=== PATIENT | male | born 1990 | race Caucasian/White ===

== ENCOUNTER 2017-01-20 16:40 | Emergency (ER) | payer OTHER ==
[2017-01-20 16:45] VITALS: TEMP 98.5
--- NOTE | 2017-01-20 18:34 | ED ---
General Adult HPI - General Chief complaint: Recheck/Abnormal Lab/Rx Stated complaint: abnormal labs Time Seen by Provider: 01/20/17 18:00 Source: patient, family, RN notes reviewed, old records reviewed Mode of arrival: ambulatory Limitations: no limitations - History of Present Illness Initial comments: 26-year-old male presenting for fatigue and behavioral changes. Patient does have a psychiatric history is currently on multiple psychiatric medications. Mother states that he has developed metabolic issue secondary to his medications. He has a history of elevated ammonia levels. She states that he began having some behavioral disturbances with agitation and irritability over the past week. They did follow-up with his primary doctor who did some lab work and found that his ammonia level was 70. He was initiated on lactulose which he has been using for the past 5 days. Mother states he doesn't seem like he is improving much. She states he seems more irritable and agitated and has crying fits. She states that she has also begun to reduce some of the doses of his medications after discussion with the psychiatrist. The patient denies any suicidality at this time. States he feels "foggy." He denies any fevers or chills. He denies any chest pain or shortness of breath. He denies abdominal pain. He denies any nausea or vomiting. - Related Data Home Medications Medication Instructions Recorded Confirmed QUEtiapine [SEROquel] 200 mg PO HS 06/18/16 01/20/17 Citalopram Hydrobromide [CeleXA] 20 mg PO DAILY 01/20/17 01/20/17 Dextroamphetamine/Amphetamine 10 mg PO TID@0800,1230,1630 01/20/17 01/20/17 [Adderall] LORazepam [Ativan] 1 mg PO TID 01/20/17 01/20/17 QUEtiapine [SEROquel] 25 mg PO QAM 01/20/17 01/20/17 Allergies Allergy/AdvReac Type Severity Reaction Status Date / Time phenobarbital AdvReac Severe Rapid Verified 01/20/17 18:55 Heart Rate zolpidem tartrate AdvReac Unknown Altered Verified 01/20/17 18:55 [From Ambien] Mental Status estropipate [From Ogen 2.5] AdvReac Twitching Verified 01/20/17 18:55 of Legs haloperidol [From Haldol] AdvReac Agitation Verified 01/20/17 18:55 methylprednisolone AdvReac Altered Verified 01/20/17 18:55 [From Solu-Medrol] Mental Status Review of Systems ROS Statement: Those systems with pertinent positive or pertinent negative responses have been documented in the HPI. ROS Other: All systems not noted in ROS Statement are negative. Past Medical History Past Medical History: GERD/Reflux, GI Bleed, Renal Disease Additional Past Medical History / Comment(s): Gastritis, kidney stones, chrons, possible metabolic disorder History of Any Multi-Drug Resistant Organisms: None Reported Past Surgical History: Tonsillectomy Additional Past Surgical History / Comment(s): wisdom teeth removed. Past Anesthesia/Blood Transfusion Reactions: No Reported Reaction Additional Past Anesthesia/Blood Transfusion Reaction / Comment(s): NEVER HAD BLOOD TRANSFUSION Past Psychological History: ADD/ADHD, Anxiety, Bipolar, Depression, PTSD Additional Psychological History / Comment(s): PT TAKES PAXIL AND XANAX AND SEES A THERAPIST WHICH pt states doesnt seem to be helping. HE USES MEDICAL MARIJUANA TINCTURE WHICH HE DROPS ON HIS TONGUE, mixes in brownies or smokes it which helps with his crohns. Smoking Status: Current every day smoker Past Alcohol Use History: Occasional Additional Past Alcohol Use History / Comment(s): pt states he is an alcoholic, he has drunk up to a gallon of vodka in a day. Patient is currently stating that he binge drinks and only occasionally. He is a smoker of a half a pack of cigarettes per day. He is currently living at home with his parents. Past Drug Use History: Marijuana Additional Drug Use History / Comment(s): pt has a medical marijuana card "for my PTSD and crohns" - Past Family History Sister(s) Additional Family Medical History / Comment(s): He has one sister that is healthy. He also has a 4-year-old daughter that is healthy. Father Family Medical History: GERD/Reflux Additional Family Medical History / Comment(s): Father is alive at age 60 recovered alcoholic with no major medical problems. Mother Additional Family Medical History / Comment(s): Mother is alive at age 58 recovered alcoholic and chronic back problems. General Exam - General Exam Comments Initial Comments: General: Awake and Alert. No acute distress. Does not appear acutely ill. Eyes: YOKASTA, EOM intact. No nystagmus. No scleral icterus. HENT: Atraumatic, normocephalic. Mucous membranes moist. Trachea midline. Neck: The neck is supple, there is no tenderness or JVD. Cardiovascular: Regular rate and rhythm. No murmur, rub, or gallop is appreciated. Distal pulses intact. Respiratory: Lungs are clear to auscultation bilaterally. No wheezes, rales, rhonchi. No respiratory distress. Gastrointestinal: Soft, Nontender. No rebound or guarding. Non-distended. No masses or organomegaly noted. No CVA tenderness. Musculoskeletal: No tenderness. Normal ROM. No gross deformity. No strength deficits. Neurological: A&Ox3. CN II-XII grossly intact, There are no obvious motor or sensory deficits. Coordination appears grossly intact. Speech is normal. Skin: Skin is warm and dry and no rashes or lesions are noted. Psychiatric: Cooperative. Flat affect. Limitations: no limitations Course Vital Signs 01/20/17 01/20/17 16:42 19:31 Temperature 98.5 F Pulse Rate 97 69 Respiratory 20 16 Rate Blood Pressure 131/70 134/65 O2 Sat by Pulse 98 97 Oximetry EKG Findings - EKG Comments: EKG Findings:: EKG 18:30. Normal sinus rhythm. Rate 77. Normal axis. No STEMI. Normal EKG. Medical Decision Making - Medical Decision Making 26-year-old male with history of depression and PTSD presenting for behavioral changes. On exam patient appears in no acute distress with stable vitals. Per mother he recently had an elevated ammonia level in the outpatient setting and has been started on lactulose. She states this is been a recurrent issue in the past. Shortly after IV was placed patient demanded his IV be removed. It was removed. He became more agitated. His normal dose of Ativan was given by mouth and his behavior improved. He was able to tolerate oral fluids. Lab work with mild leukocytosis, likely reactive. BMP grossly unremarkable. LFTs stable. Lipase negative. Ammonia elevated at 39. UA without evidence of infection. Patient reevaluated, remained stable. Updated patient and mother on results. Discussed elevated ammonia though improved since recent value of 70. Discussed continuing lactulose and follow-up with PCP. Mother states he has follow-up with Dr. Stevenson, psychiatry on Wednesday and PCP Dr. Anderson early next week. Patient appears stable for discharge at this time. Patient and mother deny any reason for psychiatric evaluation at this time. Discussed concerning signs symptoms for immediate return to the ED. Mother feels comfortable taking him home at this time. Patient and mother are agreeable with plan and discharge home. - Lab Data Result diagrams: 01/20/17 18:26 01/20/17 18:26 Lab Results 01/20/17 01/20/17 01/20/17 Range/Units 18:26 18:26 18:26 WBC 11.1 H (3.8-10.6) k/uL RBC 5.21 (4.30-5.90) m/uL Hgb 16.6 (13.0-17.5) gm/dL Hct 48.2 (39.0-53.0) % MCV 92.5 (80.0-100.0) fL MCH 31.8 (25.0-35.0) pg MCHC 34.4 (31.0-37.0) g/dL RDW 13.3 (11.5-15.5) % Plt Count 223 (150-450) k/uL Neutrophils % 61 % Lymphocytes % 30 % Monocytes % 4 % Eosinophils % 3 % Basophils % 1 % Neutrophils # 6.8 (1.3-7.7) k/uL Lymphocytes # 3.4 (1.0-4.8) k/uL Monocytes # 0.5 (0-1.0) k/uL Eosinophils # 0.3 (0-0.7) k/uL Basophils # 0.1 (0-0.2) k/uL Sodium 142 (137-145) mmol/L Potassium 4.2 (3.5-5.1) mmol/L Chloride 105 (98-107) mmol/L Carbon Dioxide 26 (22-30) mmol/L Anion Gap 11 mmol/L BUN 14 (9-20) mg/dL Creatinine 0.80 (0.66-1.25) mg/dL Est GFR (MDRD) Af Amer >60 (>60 ml/min/1.73 sqM) Est GFR (MDRD) Non-Af >60 (>60 ml/min/1.73 sqM) Glucose 72 L (74-99) mg/dL Calcium 10.0 (8.4-10.2) mg/dL Total Bilirubin 0.4 (0.2-1.3) mg/dL AST 37 (17-59) U/L ALT 60 (21-72) U/L Alkaline Phosphatase 65 (38-126) U/L Ammonia 39 H (<30) umol/L Total Protein 7.4 (6.3-8.2) g/dL Albumin 4.7 (3.5-5.0) g/dL Lipase 40 (23-300) U/L Urine Color Urine Appearance (Clear) Urine pH (5.0-8.0) Ur Specific [place] (1.001-1.035) Urine Protein (Negative) Urine Glucose (UA) (Negative) Urine Ketones (Negative) Urine Blood (Negative) Urine Nitrite (Negative) Urine Bilirubin (Negative) Urine Urobilinogen (<2.0) mg/dL Ur Leukocyte Esterase (Negative) Urine Opiates Screen (NotDetected) Ur Oxycodone Screen (NotDetected) Urine Methadone Screen (NotDetected) Ur Propoxyphene Screen (NotDetected) Ur Barbiturates Screen (NotDetected) U Tricyclic Antidepress (NotDetected) Ur Phencyclidine Scrn (NotDetected) Ur Amphetamines Screen (NotDetected) U Methamphetamines Scrn (NotDetected) U Benzodiazepines Scrn (NotDetected) Urine Cocaine Screen (NotDetected) U Marijuana (THC) Screen (NotDetected) 01/20/17 01/20/17 Range/Units 18:33 18:34 WBC (3.8-10.6) k/uL RBC (4.30-5.90) m/uL Hgb (13.0-17.5) gm/dL Hct (39.0-53.0) % MCV (80.0-100.0) fL MCH (25.0-35.0) pg MCHC (31.0-37.0) g/dL RDW (11.5-15.5) % Plt Count (150-450) k/uL Neutrophils % % Lymphocytes % % Monocytes % % Eosinophils % % Basophils % % Neutrophils # (1.3-7.7) k/uL Lymphocytes # (1.0-4.8) k/uL Monocytes # (0-1.0) k/uL Eosinophils # (0-0.7) k/uL Basophils # (0-0.2) k/uL Sodium (137-145) mmol/L Potassium (3.5-5.1) mmol/L Chloride (98-107) mmol/L Carbon Dioxide (22-30) mmol/L Anion Gap mmol/L BUN (9-20) mg/dL Creatinine (0.66-1.25) mg/dL Est GFR (MDRD) Af Amer (>60 ml/min/1.73 sqM) Est GFR (MDRD) Non-Af (>60 ml/min/1.73 sqM) Glucose (74-99) mg/dL Calcium (8.4-10.2) mg/dL Total Bilirubin (0.2-1.3) mg/dL AST (17-59) U/L ALT (21-72) U/L Alkaline Phosphatase (38-126) U/L Ammonia (<30) umol/L Total Protein (6.3-8.2) g/dL Albumin (3.5-5.0) g/dL Lipase (23-300) U/L Urine Color Yellow Urine Appearance Clear (Clear) Urine pH 7.0 (5.0-8.0) Ur Specific [place] 1.017 (1.001-1.035) Urine Protein Negative (Negative) Urine Glucose (UA) Negative (Negative) Urine Ketones Negative (Negative) Urine Blood Negative (Negative) Urine Nitrite Negative (Negative) Urine Bilirubin Negative (Negative) Urine Urobilinogen <2.0 (<2.0) mg/dL Ur Leukocyte Esterase Negative (Negative) Urine Opiates Screen Not Detected (NotDetected) Ur Oxycodone Screen Not Detected (NotDetected) Urine Methadone Screen Not Detected (NotDetected) Ur Propoxyphene Screen Not Detected (NotDetected) Ur Barbiturates Screen Not Detected (NotDetected) U Tricyclic Antidepress Detected H (NotDetected) Ur Phencyclidine Scrn Not Detected (NotDetected) Ur Amphetamines Screen Detected H (NotDetected) U Methamphetamines Scrn Not Detected (NotDetected) U Benzodiazepines Scrn Detected H (NotDetected) Urine Cocaine Screen Not Detected (NotDetected) U Marijuana (THC) Screen Detected H (NotDetected) - EKG Data -: EKG Interpreted by Me EKG shows normal: sinus rhythm Rate: normal Disposition Clinical Impression: Hyperammonemia, Behavioral change Disposition: HOME SELF-CARE Condition: Stable Additional Instructions: Please continue the lactulose as directed. Make sure he continues to drink plenty of fluid to stay well hydrated and increase his urine output. Please follow up with his psychiatrist and PCP as discussed. Please return to the ER immediately if his condition seems to worsen. Referrals: Daniel Anderson DO [Primary Care Provider] - 1-2 days Time of Disposition: 19:56
[2017-01-20 18:36] LABS: Basophils # (A) 0.1 k/uL (0-0.2); Basophils % (A) 1 %; CH 32.2; Eosinophils # (A) 0.3 k/uL (0-0.7); Eosinophils % (A) 3 %; HCT 48.2 % (39.0-53.0); HDW 2.54; HGB 16.6 gm/dL (13.0-17.5); Luc # (Auto) 0.17; Luc % (Auto) 2; Lymphocytes # (A) 3.4 k/uL (1.0-4.8); Lymphocytes % (A) 30 %; MCH 31.8 pg (25.0-35.0); MCHC 34.4 g/dL (31.0-37.0); MCV 92.5 fL (80.0-100.0); Mean Platelet Volume 6.9; Monocytes # (A) 0.5 k/uL (0-1.0); Monocytes % (A) 4 %; Neutrophils # (A) 6.8 k/uL (1.3-7.7); Neutrophils % (A) 61 %; RBC 5.21 m/uL (4.30-5.90); RDW 13.3 % (11.5-15.5); WBC 11.1 k/uL (3.8-10.6); WBC (Perox) 10.92
[2017-01-20 18:54] LABS: ALT 60 U/L (21-72); AST 37 U/L (17-59); Alkaline Phosphatase 65 U/L (38-126); Anion Gap 11 mmol/L; Blood Urea Nitrogen 14 mg/dL (9-20); Carbon Dioxide 26 mmol/L (22-30); Chloride 105 mmol/L (98-107); Glucose 72 mg/dL (74-99); Non-African American GFR(MDRD) >60 (>60 ml/min/1.73 sqM); Potassium 4.2 mmol/L (3.5-5.1); Sodium 142 mmol/L (137-145); Total Bilirubin 0.4 mg/dL (0.2-1.3); Total Protein 7.4 g/dL (6.3-8.2)
[2017-01-20] MEDS ORDERED: SODIUM CHLORIDE 0.9% 1,000 ML IV ONE (19:05)
[2017-01-20] MEDS ORDERED: LORazepam 1 MG TAB PO STA (19:08)
[2017-01-20 19:16] LABS: Appearance,Urine Clear (Clear); Bilirubin,Urine Negative (Negative); Glucose,Urine (UA) Negative (Negative); Ketones,Urine Negative (Negative); Leukocyte Esterase,Urine Negative (Negative); Nitrite,Urine Negative (Negative); Protein,Urine Negative (Negative); Specific Gravity,Urine 1.017 (1.001-1.035); UA Billing (MACRO vs. MICRO) CHEM; Urobilinogen,Urine <2.0 mg/dL (<2.0)
[2017-01-20 19:32] VITALS: BP 134/65; PULSE 69; RESP 16
== END 2017-01-20 20:01 | disposition home or self-care (01) ==
LOC: EC 16:40
DX: E72.4 Disorders of ornithine metabolism (principal); R46.89 Other symptoms and signs involving appearance and behavior; F90.9 Attention-deficit hyperactivity disorder, unspecified type; F41.9 Anxiety disorder, unspecified; F31.9 Bipolar disorder, unspecified; F17.200 Nicotine dependence, unspecified, uncomplicated; Z88.8 Allergy status to other drugs, medicaments and biological substances; Z79.899 Other long term (current) drug therapy
CPT/HCPCS: 36415; 80053; 80306; 81003; 82140; 83690; 85025; 93005; 99284

== ENCOUNTER 2017-01-22 10:08 | Emergency (ER) | payer OTHER ==
--- NOTE | 2017-01-22 11:34 | ED ---
General Adult HPI - General Chief complaint: Recheck/Abnormal Lab/Rx Stated complaint: abn labs Time Seen by Provider: 01/22/17 11:13 Source: patient, family, RN notes reviewed, old records reviewed Mode of arrival: wheelchair Limitations: no limitations - History of Present Illness Initial comments: Chief complaint and history of present illness this is a 18-year-old male here with his mother. The patient lives with his mother. Patient has had history of alcohol abuse years ago. And is on psychiatric drugs for combination of bipolar disorder and PTSD. The patient labs showed an elevated ammonia last week of 70. He was hydrated and mother continued his lactulose. He was in emergency room 2 days ago and was ammonia level dropped to 39. Mother felt comfortable taking him home continuing hydration but his symptoms have not significantly improved. She discussed this with the family physician suggested he come the emergency room have his labs redrawn and receive rehydration. The symptoms are being fidgety. - Related Data Home Medications Medication Instructions Recorded Confirmed QUEtiapine [SEROquel] 200 mg PO HS 06/18/16 01/22/17 Citalopram Hydrobromide [CeleXA] 20 mg PO DAILY 01/20/17 01/22/17 Dextroamphetamine/Amphetamine 10 mg PO TID@0800,1230,1630 01/20/17 01/22/17 [Adderall] LORazepam [Ativan] 1 mg PO TID 01/20/17 01/22/17 QUEtiapine [SEROquel] 25 mg PO QAM 01/20/17 01/22/17 Allergies Allergy/AdvReac Type Severity Reaction Status Date / Time phenobarbital AdvReac Severe Rapid Verified 01/22/17 11:08 Heart Rate zolpidem tartrate AdvReac Unknown Altered Verified 01/22/17 11:08 [From Ambien] Mental Status estropipate [From Ogen 2.5] AdvReac Twitching Verified 01/22/17 11:08 of Legs haloperidol [From Haldol] AdvReac Agitation Verified 01/22/17 11:08 methylprednisolone AdvReac Altered Verified 01/22/17 11:08 [From Solu-Medrol] Mental Status Review of Systems ROS Statement: Those systems with pertinent positive or pertinent negative responses have been documented in the HPI. Review of systems. The patient is fidgety. He does state he has general aches and pains but no specific problems. He's been on lactulose and does have diarrhea. Denies headache or sore throat. The patient's systems are reviewed. Past medical problems GERD, GI bleed and renal disease. Other medical problems kidney stones and Crohn's disorder and a metabolic disorder with elevated ammonia levels. Surgeries tonsillectomy. The patient psychological history, ADHD, anxiety, bipolar depression and PTSD. Currently seeing a psychiatrist. Uses medical marijuana teacher when she drops on his tongue. He states this helped with his Crohn's disorder. Smokes half pack per day. Per past history both mother and father recovering alcoholics. ROS Other: All systems not noted in ROS Statement are negative. Past Medical History Past Medical History: GERD/Reflux, GI Bleed, Renal Disease Additional Past Medical History / Comment(s): Gastritis, kidney stones, chrons, possible metabolic disorder History of Any Multi-Drug Resistant Organisms: None Reported Past Surgical History: Tonsillectomy Additional Past Surgical History / Comment(s): wisdom teeth removed. Past Anesthesia/Blood Transfusion Reactions: No Reported Reaction Additional Past Anesthesia/Blood Transfusion Reaction / Comment(s): NEVER HAD BLOOD TRANSFUSION Past Psychological History: ADD/ADHD, Anxiety, Bipolar, Depression, PTSD Additional Psychological History / Comment(s): PT TAKES PAXIL AND XANAX AND SEES A THERAPIST WHICH pt states doesnt seem to be helping. HE USES MEDICAL MARIJUANA TINCTURE WHICH HE DROPS ON HIS TONGUE, mixes in brownies or smokes it which helps with his crohns. Smoking Status: Current every day smoker Past Alcohol Use History: Occasional Additional Past Alcohol Use History / Comment(s): pt states he is an alcoholic, he has drunk up to a gallon of vodka in a day. Patient is currently stating that he binge drinks and only occasionally. He is a smoker of a half a pack of cigarettes per day. He is currently living at home with his parents. Past Drug Use History: Marijuana Additional Drug Use History / Comment(s): pt has a medical marijuana card "for my PTSD and crohns" - Past Family History Sister(s) Additional Family Medical History / Comment(s): He has one sister that is healthy. He also has a 4-year-old daughter that is healthy. Father Family Medical History: GERD/Reflux Additional Family Medical History / Comment(s): Father is alive at age 60 recovered alcoholic with no major medical problems. Mother Additional Family Medical History / Comment(s): Mother is alive at age 58 recovered alcoholic and chronic back problems. General Exam - General Exam Comments Initial Comments: General: The patient is awake is fidgety per mother. She notices changes that her indicate and being affected by ammonia levels being elevated. Temp 98.0 pulse 79 respiratory rate 18 pulse ox 96% room air blood pressure 127/72 Eye: Pupils are equal, round and reactive to light, extra-ocular movements are intact ; there is normal conjunctiva bilaterally. No signs of icterus. Ears, nose, mouth and throat: There are moist mucous membranes and no oral lesions. Neck: The neck is supple, there is no tenderness . Cardiovascular: There is a regular rate and rhythm. No murmur, rub or gallop is appreciated. Respiratory: Lungs are clear to auscultation, respirations are non-labored, breath sounds are equal. No wheezes, stridor, rales, or rhonchi. Gastrointestinal: Soft, non-distended, non-tender abdomen without masses or organomegaly noted. There is no rebound or guarding present. No CVA tenderness. Bowel sounds are unremarkable. No liver enlargement or tenderness with deep palpation. Back: There is no tenderness to palpation in the midline. There is no obvious deformity. No rashes noted. Musculoskeletal: Normal ROM, no tenderness, There is no pedal edema. There is no calf tenderness or swelling. Sensation intact. Pulses equal bilaterally 2+. Neurological: Mother reports that he is acting as though his ammonia level is elevated, fidgety with repetitive movements. Mild confusion. Skin: Skin is warm and dry and no rashes or lesions are noted. Psychiatric: History of ADD, ADHD, anxiety, depression, bipolar disorder and PTSD Limitations: no limitations Course Vital Signs 01/22/17 10:40 Temperature 98.0 F Pulse Rate 79 Respiratory 18 Rate Blood Pressure 127/72 O2 Sat by Pulse 96 Oximetry Medical Decision Making - Medical Decision Making Vital decision making; patient's white count is 9 hemoglobin 17 hematocrit of 48 , BUN 15 creatinine 0.69 the GFR greater than 60 and ammonia level was only 14. After hydration the patient did significantly improve. Plant this size for the mother: Discussed with the psychiatrist the current medications and may be causing him to be more somnolent. Otherwise advised to continue home therapy as she's been doing recently. And otherwise return emergency room if there are any changes. - Lab Data Result diagrams: 01/22/17 12:25 01/22/17 12:25 Lab Results 01/22/17 01/22/17 01/22/17 Range/Units 12:25 12:25 12:25 WBC 9.5 (3.8-10.6) k/uL RBC 5.42 (4.30-5.90) m/uL Hgb 17.2 (13.0-17.5) gm/dL Hct 48.9 (39.0-53.0) % MCV 90.1 (80.0-100.0) fL MCH 31.8 (25.0-35.0) pg MCHC 35.2 (31.0-37.0) g/dL RDW 13.1 (11.5-15.5) % Plt Count 223 (150-450) k/uL Neutrophils % 60 % Lymphocytes % 31 % Monocytes % 5 % Eosinophils % 2 % Basophils % 1 % Neutrophils # 5.7 (1.3-7.7) k/uL Lymphocytes # 2.9 (1.0-4.8) k/uL Monocytes # 0.5 (0-1.0) k/uL Eosinophils # 0.2 (0-0.7) k/uL Basophils # 0.1 (0-0.2) k/uL Sodium 141 (137-145) mmol/L Potassium 4.5 (3.5-5.1) mmol/L Chloride 105 (98-107) mmol/L Carbon Dioxide 25 (22-30) mmol/L Anion Gap 11 mmol/L BUN 15 (9-20) mg/dL Creatinine 0.69 (0.66-1.25) mg/dL Est GFR (MDRD) Af Amer >60 (>60 ml/min/1.73 sqM) Est GFR (MDRD) Non-Af >60 (>60 ml/min/1.73 sqM) Glucose 87 (74-99) mg/dL Calcium 9.8 (8.4-10.2) mg/dL Magnesium 1.9 (1.6-2.3) mg/dL Total Bilirubin 0.6 (0.2-1.3) mg/dL AST 37 (17-59) U/L ALT 63 (21-72) U/L Alkaline Phosphatase 68 (38-126) U/L Ammonia 14 (<30) umol/L Total Protein 7.7 (6.3-8.2) g/dL Albumin 4.9 (3.5-5.0) g/dL Disposition Clinical Impression: Idiosyncratic reaction to medication after proper dose Disposition: HOME SELF-CARE Condition: Fair Additional Instructions: Follow-up with your family physician and your psychiatrist. Take medications as directed by her doctors at home return emergency room as needed Referrals: Daniel Anderson DO [Primary Care Provider] - 1-2 days Time of Disposition: 14:29
[2017-01-22] MEDS ORDERED: SODIUM CHLORIDE 0.9% 1,000 ML IV ONE (11:35)
[2017-01-22] MEDS ORDERED: SODIUM CHLORIDE 0.9% 1,000 ML IV SCH (11:45)
[2017-01-22 12:39] LABS: Basophils # (A) 0.1 k/uL (0-0.2); Basophils % (A) 1 %; CH 32.2; CHCM 35.8; Eosinophils # (A) 0.2 k/uL (0-0.7); Eosinophils % (A) 2 %; HCT 48.9 % (39.0-53.0); HGB 17.2 gm/dL (13.0-17.5); Luc # (Auto) 0.19; Luc % (Auto) 2; Lymphocytes # (A) 2.9 k/uL (1.0-4.8); Lymphocytes % (A) 31 %; MCH 31.8 pg (25.0-35.0); MCHC 35.2 g/dL (31.0-37.0); MCV 90.1 fL (80.0-100.0); Mean Platelet Volume 6.8; Monocytes # (A) 0.5 k/uL (0-1.0); Monocytes % (A) 5 %; Neutrophils # (A) 5.7 k/uL (1.3-7.7); Neutrophils % (A) 60 %; RBC 5.42 m/uL (4.30-5.90); RDW 13.1 % (11.5-15.5); WBC 9.5 k/uL (3.8-10.6); WBC (Perox) 9.33
[2017-01-22 12:55] LABS: ALT 63 U/L (21-72); AST 37 U/L (17-59); Alkaline Phosphatase 68 U/L (38-126); Anion Gap 11 mmol/L; Blood Urea Nitrogen 15 mg/dL (9-20); Calcium 9.8 mg/dL (8.4-10.2); Carbon Dioxide 25 mmol/L (22-30); Chloride 105 mmol/L (98-107); Glucose 87 mg/dL (74-99); Magnesium 1.9 mg/dL (1.6-2.3); Non-African American GFR(MDRD) >60 (>60 ml/min/1.73 sqM); Potassium 4.5 mmol/L (3.5-5.1); Sodium 141 mmol/L (137-145); Total Bilirubin 0.6 mg/dL (0.2-1.3); Total Protein 7.7 g/dL (6.3-8.2)
[2017-01-22 13:42] LABS: Hepatitis C Virus IgG Index 0.01
[2017-01-22 14:28] LABS: Hepatitis C Virus IgG Ab Negative (Negative)
[2017-01-22 15:16] VITALS: BP 125/66; PULSE 65; RESP 16; TEMP 98.3
== END 2017-01-22 15:15 | disposition home or self-care (01) ==
LOC: EC 10:08
DX: T47.3X5A Adverse effect of saline and osmotic laxatives, initial encounter (principal); F31.9 Bipolar disorder, unspecified; F43.10 Post-traumatic stress disorder, unspecified; F90.9 Attention-deficit hyperactivity disorder, unspecified type; F41.9 Anxiety disorder, unspecified; F17.200 Nicotine dependence, unspecified, uncomplicated; Z88.8 Allergy status to other drugs, medicaments and biological substances; Z79.899 Other long term (current) drug therapy
CPT/HCPCS: 36415; 80053; 82140; 83735; 85025; 86803; 96360; 99284

== ENCOUNTER 2017-02-24 17:43 | Inpatient (IN) | payer MEDICAID, OTHER ==
[2017-02-24] MEDS ORDERED: SODIUM CHLORIDE 0.9% 500 ML IV STA (17:54)
[2017-02-24] MEDS ORDERED: SODIUM CHLORIDE 0.9% 1,000 ML IV STA (17:54)
--- NOTE | 2017-02-24 17:57 | ED ---
General Adult HPI - General Source: family, RN notes reviewed, old records reviewed Mode of arrival: ambulatory Limitations: no limitations <Ruslan Ordonez - Last Filed: 02/24/17 19:53> <Brando Ahuja - Last Filed: 02/24/17 23:59> - General Chief complaint: Psychiatric Symptoms Stated complaint: mental health Time Seen by Provider: 02/24/17 17:53 - History of Present Illness Initial comments: This is a 18-year-old no to the ER for evaluation of possible probable psychosis , patient has history of psychosis is a medication reaction to elevated ammonia levels. Mother states patient is atraumatic since last night. He has history of similar issues. (Ruslan Ordonez) - Related Data Home Medications Medication Instructions Recorded Confirmed QUEtiapine [SEROquel] 150 mg PO HS 06/18/16 02/24/17 Citalopram Hydrobromide [CeleXA] 20 mg PO DAILY 01/20/17 02/24/17 Dextroamphetamine/Amphetamine 10 mg PO BID 01/20/17 02/24/17 [Adderall] LORazepam [Ativan] 1 mg PO HS 01/20/17 02/24/17 QUEtiapine [SEROquel] 25 mg PO QAM 01/20/17 02/24/17 Fenofibrate Nanocrystallized 145 mg PO DAILY 02/24/17 02/24/17 [Tricor] LORazepam [Ativan] 0.5 mg PO BID@0800,1500 02/24/17 02/24/17 Allergies Allergy/AdvReac Type Severity Reaction Status Date / Time phenobarbital AdvReac Severe Rapid Verified 02/24/17 18:34 Heart Rate zolpidem tartrate AdvReac Unknown Altered Verified 02/24/17 18:34 [From Ambien] Mental Status estropipate [From Ogen 2.5] AdvReac Twitching Verified 02/24/17 18:34 of Legs haloperidol [From Haldol] AdvReac Agitation Verified 02/24/17 18:34 methylprednisolone AdvReac Altered Verified 02/24/17 18:34 [From Solu-Medrol] Mental Status Review of Systems ROS Other: All systems not noted in ROS Statement are negative. <Ruslan Ordonez - Last Filed: 02/24/17 19:53> ROS Other: All systems not noted in ROS Statement are negative. <Brando Ahuja - Last Filed: 02/24/17 23:59> ROS Statement: Those systems with pertinent positive or pertinent negative responses have been documented in the HPI. Past Medical History Past Medical History: GERD/Reflux, GI Bleed, Renal Disease Additional Past Medical History / Comment(s): Gastritis, kidney stones, chrons, possible metabolic disorder History of Any Multi-Drug Resistant Organisms: None Reported Past Surgical History: Tonsillectomy Additional Past Surgical History / Comment(s): wisdom teeth removed. Past Anesthesia/Blood Transfusion Reactions: No Reported Reaction Additional Past Anesthesia/Blood Transfusion Reaction / Comment(s): NEVER HAD BLOOD TRANSFUSION Past Psychological History: ADD/ADHD, Anxiety, Bipolar, Depression, PTSD Smoking Status: Current every day smoker Past Alcohol Use History: Occasional Past Drug Use History: Marijuana - Past Family History Sister(s) Additional Family Medical History / Comment(s): He has one sister that is healthy. He also has a 4-year-old daughter that is healthy. Father Family Medical History: GERD/Reflux Additional Family Medical History / Comment(s): Father is alive at age 60 recovered alcoholic with no major medical problems. Mother Additional Family Medical History / Comment(s): Mother is alive at age 58 recovered alcoholic and chronic back problems. <Ruslan Ordonez - Last Filed: 02/24/17 19:53> General Exam Limitations: no limitations General appearance: alert, in no apparent distress Head exam: Present: atraumatic, normocephalic, normal inspection Eye exam: Present: normal appearance, PERRL, EOMI. Absent: scleral icterus, conjunctival injection, periorbital swelling ENT exam: Present: normal exam, mucous membranes moist Neck exam: Present: normal inspection. Absent: tenderness, meningismus, lymphadenopathy Respiratory exam: Present: normal lung sounds bilaterally. Absent: respiratory distress, wheezes, rales, rhonchi, stridor Cardiovascular Exam: Present: regular rate, normal rhythm, normal heart sounds. Absent: systolic murmur, diastolic murmur, rubs, gallop, clicks GI/Abdominal exam: Present: soft, normal bowel sounds. Absent: distended, tenderness, guarding, rebound, rigid Extremities exam: Present: normal inspection, full ROM, normal capillary refill. Absent: tenderness, pedal edema, joint swelling, calf tenderness Back exam: Present: normal inspection Neurological exam: Present: alert, oriented X3, CN II-XII intact Psychiatric exam: Present: normal affect, normal mood Skin exam: Present: warm, dry, intact, normal color. Absent: rash <Ruslan Ordonez - Last Filed: 02/24/17 19:53> EKG Findings - EKG Comments: EKG Findings:: EKG shows normal sinus rhythm rate of 80, ME 144, QRS 84, QTC 299 <Ruslan Ordonez - Last Filed: 02/24/17 19:53> Medical Decision Making - Lab Data Result diagrams: 02/24/17 18:45 02/24/17 18:45 <Ruslan Ordonez - Last Filed: 02/24/17 19:53> - Lab Data Result diagrams: 02/24/17 18:45 02/24/17 18:45 <Brando Ahuja - Last Filed: 02/24/17 23:59> - Medical Decision Making The patient was evaluated by the psychiatric service and will be admitted for inpatient treatment. I did fill out a clinical certification. (Brando Ahuja) - Lab Data Lab Results 02/24/17 02/24/17 02/24/17 Range/Units 18:45 18:45 18:45 WBC 10.5 (3.8-10.6) k/uL RBC 5.19 (4.30-5.90) m/uL Hgb 16.4 (13.0-17.5) gm/dL Hct 49.2 (39.0-53.0) % MCV 94.9 (80.0-100.0) fL MCH 31.6 (25.0-35.0) pg MCHC 33.3 (31.0-37.0) g/dL RDW 13.4 (11.5-15.5) % Plt Count 238 (150-450) k/uL Neutrophils % 62 % Lymphocytes % 29 % Monocytes % 5 % Eosinophils % 2 % Basophils % 0 % Neutrophils # 6.5 (1.3-7.7) k/uL Lymphocytes # 3.0 (1.0-4.8) k/uL Monocytes # 0.5 (0-1.0) k/uL Eosinophils # 0.2 (0-0.7) k/uL Basophils # 0.0 (0-0.2) k/uL PT (9.0-12.0) sec INR (<1.1) APTT (22.0-30.0) sec Sodium (137-145) mmol/L Potassium (3.5-5.1) mmol/L Chloride (98-107) mmol/L Carbon Dioxide (22-30) mmol/L Anion Gap mmol/L BUN (9-20) mg/dL Creatinine (0.66-1.25) mg/dL Est GFR (MDRD) Af Amer (>60 ml/min/1.73 sqM) Est GFR (MDRD) Non-Af (>60 ml/min/1.73 sqM) Glucose (74-99) mg/dL Plasma Lactic Acid Socrates 1.4 (0.7-2.0) mmol/L Calcium (8.4-10.2) mg/dL Phosphorus (2.5-4.5) mg/dL Magnesium (1.6-2.3) mg/dL Total Bilirubin (0.2-1.3) mg/dL AST (17-59) U/L ALT (21-72) U/L Alkaline Phosphatase (38-126) U/L Ammonia 20 (<30) umol/L Total Creatine Kinase 158 (55-170) U/L CK-MB (CK-2) 1.4 (0.0-2.4) ng/mL CK-MB (CK-2) Rel Index 0.9 Troponin I <0.012 (0.000-0.034) ng/mL Total Protein (6.3-8.2) g/dL Albumin (3.5-5.0) g/dL Urine Color Urine Appearance (Clear) Urine pH (5.0-8.0) Ur Specific [place] (1.001-1.035) Urine Protein (Negative) Urine Glucose (UA) (Negative) Urine Ketones (Negative) Urine Blood (Negative) Urine Nitrite (Negative) Urine Bilirubin (Negative) Urine Urobilinogen (<2.0) mg/dL Ur Leukocyte Esterase (Negative) 02/24/17 02/24/17 02/24/17 Range/Units 18:45 18:45 18:45 WBC (3.8-10.6) k/uL RBC (4.30-5.90) m/uL Hgb (13.0-17.5) gm/dL Hct (39.0-53.0) % MCV (80.0-100.0) fL MCH (25.0-35.0) pg MCHC (31.0-37.0) g/dL RDW (11.5-15.5) % Plt Count (150-450) k/uL Neutrophils % % Lymphocytes % % Monocytes % % Eosinophils % % Basophils % % Neutrophils # (1.3-7.7) k/uL Lymphocytes # (1.0-4.8) k/uL Monocytes # (0-1.0) k/uL Eosinophils # (0-0.7) k/uL Basophils # (0-0.2) k/uL PT 9.8 (9.0-12.0) sec INR 1.0 (<1.1) APTT 24.6 (22.0-30.0) sec Sodium 144 (137-145) mmol/L Potassium 4.0 (3.5-5.1) mmol/L Chloride 105 (98-107) mmol/L Carbon Dioxide 27 (22-30) mmol/L Anion Gap 12 mmol/L BUN 14 (9-20) mg/dL Creatinine 0.90 (0.66-1.25) mg/dL Est GFR (MDRD) Af Amer >60 (>60 ml/min/1.73 sqM) Est GFR (MDRD) Non-Af >60 (>60 ml/min/1.73 sqM) Glucose 69 L (74-99) mg/dL Plasma Lactic Acid Socrates (0.7-2.0) mmol/L Calcium 9.9 (8.4-10.2) mg/dL Phosphorus 3.1 (2.5-4.5) mg/dL Magnesium 1.8 (1.6-2.3) mg/dL Total Bilirubin 0.3 (0.2-1.3) mg/dL AST 25 (17-59) U/L ALT 45 (21-72) U/L Alkaline Phosphatase 67 (38-126) U/L Ammonia (<30) umol/L Total Creatine Kinase (55-170) U/L CK-MB (CK-2) (0.0-2.4) ng/mL CK-MB (CK-2) Rel Index Troponin I (0.000-0.034) ng/mL Total Protein 7.1 (6.3-8.2) g/dL Albumin 4.7 (3.5-5.0) g/dL Urine Color Yellow Urine Appearance Clear (Clear) Urine pH 6.0 (5.0-8.0) Ur Specific [place] 1.023 (1.001-1.035) Urine Protein Negative (Negative) Urine Glucose (UA) Negative (Negative) Urine Ketones Negative (Negative) Urine Blood Negative (Negative) Urine Nitrite Negative (Negative) Urine Bilirubin Negative (Negative) Urine Urobilinogen <2.0 (<2.0) mg/dL Ur Leukocyte Esterase Negative (Negative) Disposition <Ruslan Ordonez - Last Filed: 02/24/17 19:53> <Brando Ahuja - Last Filed: 02/24/17 23:59> Clinical Impression: Schizophrenia, acute, Acute psychosis Disposition: TRANSFER TO PSYCH HOSP/UNIT Condition: Stable
[2017-02-24 18:58] LABS: Basophils % (A) 0 %; CH 32.8; CHCM 34.7; Eosinophils # (A) 0.2 k/uL (0-0.7); Eosinophils % (A) 2 %; HCT 49.2 % (39.0-53.0); HDW 2.52; HGB 16.4 gm/dL (13.0-17.5); Luc # (Auto) 0.18; Luc % (Auto) 2; Lymphocytes % (A) 29 %; MCH 31.6 pg (25.0-35.0); MCHC 33.3 g/dL (31.0-37.0); MCV 94.9 fL (80.0-100.0); Mean Platelet Volume 6.7; Monocytes # (A) 0.5 k/uL (0-1.0); Monocytes % (A) 5 %; Neutrophils # (A) 6.5 k/uL (1.3-7.7); Neutrophils % (A) 62 %; RBC 5.19 m/uL (4.30-5.90); RDW 13.4 % (11.5-15.5); WBC 10.5 k/uL (3.8-10.6); WBC (Perox) 9.85
[2017-02-24 19:07] LABS: Appearance,Urine Clear (Clear); Bilirubin,Urine Negative (Negative); Glucose,Urine (UA) Negative (Negative); Ketones,Urine Negative (Negative); Leukocyte Esterase,Urine Negative (Negative); Nitrite,Urine Negative (Negative); Protein,Urine Negative (Negative); Specific Gravity,Urine 1.023 (1.001-1.035); UA Billing (MACRO vs. MICRO) CHEM; Urobilinogen,Urine <2.0 mg/dL (<2.0)
[2017-02-24 19:09] LABS: ALT 45 U/L (21-72); AST 25 U/L (17-59); Alkaline Phosphatase 67 U/L (38-126); Anion Gap 12 mmol/L; Blood Urea Nitrogen 14 mg/dL (9-20); Calcium 9.9 mg/dL (8.4-10.2); Carbon Dioxide 27 mmol/L (22-30); Chloride 105 mmol/L (98-107); Glucose 69 mg/dL (74-99); Magnesium 1.8 mg/dL (1.6-2.3); Non-African American GFR(MDRD) >60 (>60 ml/min/1.73 sqM); Phosphorous 3.1 mg/dL (2.5-4.5); Sodium 144 mmol/L (137-145); Total Bilirubin 0.3 mg/dL (0.2-1.3); Total Protein 7.1 g/dL (6.3-8.2)
[2017-02-24 19:12] LABS: Partial Thromboplastin Time 24.6 sec (22.0-30.0); Prothrombin Time 9.8 sec (9.0-12.0)
[2017-02-24 19:18] LABS: Creatine Kinase 158 U/L (55-170)
[2017-02-24 19:31] LABS: Creatine Kinase MB 1.4 ng/mL (0.0-2.4); Troponin I <0.012 ng/mL (0.000-0.034)
[2017-02-25] MEDS ORDERED: MAGNESIUM HYDROXIDE 2,400 MG/10 ML CUP PO PRN (00:01)
[2017-02-25] MEDS ORDERED: MAG HYDROX/AL HYDROX/SIMETH 30 ML CUP PO PRN (00:01)
[2017-02-25] MEDS ORDERED: LORazepam 2 MG/ML SYRINGE IM PRN (00:04)
[2017-02-25] MEDS ORDERED: OLANZapine ODT 5 MG TAB PO PRN (00:05)
[2017-02-25] MEDS: LORazepam 1 MG TAB PO PRN (04:35)
[2017-02-25] MEDS: FENOFIBRATE 160 MG TAB PO SCH ×2 (08:22→10:14)
[2017-02-25] MEDS: NICOTINE 14MG/24HR PATCH TRANSDERM SCH ×2 (08:22→10:13)
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
[2017-02-25 09:59] LABS: Cholesterol 218 mg/dL (<200); HDL Cholesterol 42 mg/dL (40-60); Triglycerides 226 mg/dL (<150)
[2017-02-25] MEDS: QUEtiapine 100 MG TAB PO SCH ×2 (10:13→20:17)
[2017-02-25] MEDS ORDERED: QUEtiapine 100 MG TAB PO SCH (21:00)
--- NOTE | 2017-02-25 22:40 | CONS ---
DATE OF CONSULTATION: REASON FOR CONSULTATION: Hyperlipidemia. The patient is a 18-year-old admitted for acute psychosis admitted secondary to acute psychosis. Patient denied any fever, chills. Patient denied any nausea, vomiting, abdominal pain. Patient does have elevated LDL. Patient takes Fenofibrate at home. Patient is an extremely poor historian. Not sure if the patient takes his medications or not including Fenofibrate. Patient believes his mom is giving him that medication, but he is not sure. Regarding hyperlipidemia, recommended to continue Fenofibrate, I am not adding any statins because both of these medications put him on high risk for myalgia and myelolysis, myalgias and myopathy, although ( ) can be reached as an outpatient, probably can start statin, Fenofibrate. Not sure why patient was not started on statin to start with. I will leave further ( ) because of these reasons, I will leave further management of hyperlipidemia to primary care physician. REVIEW OF SYSTEMS: CONSTITUTIONAL: No fever, no malaise, no fatigue. HEENT: No recent visual problems or hearing problems. Denied any sore throat. CARDIOVASCULAR: No chest pain, orthopnea, PND, no palpitations, no syncope. PULMONARY: No shortness of breath, no cough, no hemoptysis. GASTROINTESTINAL: No diarrhea, no nausea, no vomiting, no abdominal pain. Normoactive bowel sounds. NEUROLOGICAL: No headaches, no weakness, no numbness. HEMATOLOGICAL: Denies any bleeding or petechiae. GENITOURINARY: Denies any burning micturition, frequency, or urgency. MUSCULOSKELETAL/RHEUMATOLOGICAL: Denies any joint pain, swelling, or any muscle pain. ENDOCRINE: Denies any polyuria or polydipsia. PSYCHIATRIC: Defer to primary service. The rest of the 14 point review of systems is negative. PAST MEDICAL HISTORY: Significant for hyperlipidemia, hypertriglyceridemia, gastroesophageal reflux disease, bipolar disorder. FAMILY HISTORY: Gastroesophageal reflux disease. SOCIAL HISTORY: The patient does smoke a pack per day. Does drink alcohol every day, although the patient is not having any withdrawals. He needs to be watched for that. Patient does use marijuana on a regular basis. PHYSICAL EXAMINATION: Temperature 98.2, pulse of 88, respiratory rate of 16, blood pressure is 142/58, saturating at 97% on room air. GENERAL: The patient is alert and oriented x3, not in any acute distress. Well developed, well nourished. HEENT: Pupils are round and equally reacting to light. EOMI. No scleral icterus. No conjunctival pallor. Normocephalic, atraumatic. No pharyngeal erythema. No thyromegaly. CARDIOVASCULAR: S1 and S2 present. No murmurs, rubs, or gallops. PULMONARY: Chest is clear to auscultation, no wheezing or crackles. ABDOMEN: Soft, nontender, nondistended, normoactive bowel sounds. No palpable organomegaly. MUSCULOSKELETAL: No joint swelling or deformity. EXTREMITIES: No cyanosis, clubbing, or pedal edema. NEUROLOGICAL: Gross neurological examination did not reveal any focal deficits. SKIN: No rashes. PSYCHIATRIC: Defer to primary service. LABORATORY DATA: LDL is elevated as mentioned above to 130. Urine drug screen is positive for amphetamines, benzodiazepines, marijuana, tricyclic antidepressants, which I believe he is on those medications at home. ASSESSMENT AND PLAN: 1. Hyperlipidemia. Management as mentioned above. 2. Alcohol abuse. Patient needs to be watched for alcohol withdrawals. 3. Nicotine abuse. Counseling was provided. 4. Multiple drug abuse along with marijuana use. Management as per primary service. 5. Bipolar and psychosis, management as per primary service. Thank you for letting us participate in the care of this patient. We will sign off at this point of time. Please call us back if needed.
[2017-02-26] MEDS: QUEtiapine 100 MG TAB PO SCH (09:27)
[2017-02-26] MEDS: NICOTINE 14MG/24HR PATCH TRANSDERM SCH (09:27)
[2017-02-26] MEDS: FENOFIBRATE 160 MG TAB PO SCH (09:27)
--- NOTE | 2017-02-26 09:58 | P.PN ---
Progress Note - Text Interval history: The patient is found in his room he follows me to an interview room. He reports that he is "in shock". He provides no other specifics in describing this feeling. The patient becomes acutely tearful he does not make eye contact. He often holds his head in his hands. He reports that he has been isolating in his room however he states he did eat breakfast this morning. It is documented that he slept through the night approximate 6 hours. He has been compliant with the Seroquel he is reporting no side effects at this time. Again a slightly lab work was all within normal limits except for evidence of hyperlipidemia. Ammonia level was normal at 20. Mental status exam: The patient is alert he appears distraught. He is tearful throughout the session. He states "my father is ". He states "I feel it". He reports he has not been able to speak with his mother he tells "I'm in shock". He continues to endorse a feeling of not being safe. Thoughts are not well organized. He frequently moves while seated in his chair but he demonstrates no verbal or physical aggressiveness. Eye contact is poor. Insight and judgment are impaired. He is reporting no suicidal or homicidal ideation. He is not oriented at this time other than knowing his name and that he is in the hospital. 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 Plan: The patient will continue on the Seroquel 100 mg twice daily we will likely need to titrate this further. We will consider adding another mood stabilizer if needed. We will monitor the patient for safety and encourage his participation in the milieu. The patient requires continued hospitalization due to his current psychosis
[2017-02-26] MEDS: LORazepam 1 MG TAB PO SCH (20:44)
[2017-02-26] MEDS: QUEtiapine 50 MG TAB PO SCH (20:44)
[2017-02-27] MEDS: QUEtiapine 100 MG TAB PO SCH (08:17)
[2017-02-27] MEDS: FENOFIBRATE 160 MG TAB PO SCH (08:17)
[2017-02-27] MEDS: NICOTINE 14MG/24HR PATCH TRANSDERM SCH (08:17)
[2017-02-27] MEDS: LORazepam 0.5 MG TAB PO SCH ×2 (08:17→11:54)
--- NOTE | 2017-02-27 09:19 | P.PN ---
Progress Note - Text Interval history: The patient is found in his room he follows me to an interview room. He reports he is doing a little better however he continues to isolate in his room. He continues to have thoughts that his daughter has been murdered and his father is . He does not feel safe. He has not attended any groups but he does go down for meals. Nursing informs me that they were able to reach his mother and she informed them that the patient had done well with lithium in the past as a mood stabilizer but had problems with Abilify. The patient states he had "leg twitching" with Abilify. We have continued the Seroquel and titrated it. He reports he did not sleep very well last night. He reports feeling anxious and is having racing thoughts. He states "I want to get my mind on track". Mental status exam: The patient is an alert male appearing his stated age he has a disheveled appearance he is dressed in his own clothing. Eye contact is poor he will look from side to side but does not make eye contact. Is cooperative and easily directable. He continues to feel anxious and upset. He reports feeling unsafe he worries for the safety of his family. He is not tearful during the session. He continues to have paranoid and possibly persecutory thoughts. He is reporting no suicidal ideation intent or plan he reports no homicidal ideation intent or plan. He expresses a hope that he will get better. Insight and judgment impaired. Plan: The patient will continue on the Seroquel at its current dose. We have scheduled Ativan to help reduce some of his significant anxiety. We will initiate lithium 300 mg 3 times daily as there has been report from the patient and his mother that he has tolerated that in the past without difficulty. We will initiate lithium carbonate 300 mg 3 times daily. Baseline lab work is within normal limits regarding TSH BUN and creatinine and electrolytes. We will continue to monitor him for safety he is encouraged to participate in the milieu when possible.
[2017-02-27] MEDS: LITHIUM CARBONATE 300 MG CAP PO SCH ×3 (10:58→21:11)
[2017-02-27] MEDS: LORazepam 1 MG TAB PO SCH (20:10)
[2017-02-27] MEDS: QUEtiapine 50 MG TAB PO SCH (20:10)
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
[2017-02-28] MEDS: LORazepam 0.5 MG TAB PO SCH ×2 (09:43→13:00)
[2017-02-28] MEDS: LITHIUM CARBONATE 300 MG CAP PO SCH ×3 (09:43→20:27)
[2017-02-28] MEDS: QUEtiapine 100 MG TAB PO SCH (09:43)
[2017-02-28] MEDS: NICOTINE 14MG/24HR PATCH TRANSDERM SCH (09:43)
[2017-02-28] MEDS: FENOFIBRATE 160 MG TAB PO SCH (09:43)
[2017-02-28] MEDS: LORazepam 1 MG TAB PO SCH (20:26)
[2017-02-28] MEDS: ACETAMINOPHEN TAB 325 MG TAB PO PRN (20:27)
[2017-02-28] MEDS: QUEtiapine 50 MG TAB PO SCH (20:27)
[2017-03-01] MEDS: QUEtiapine 100 MG TAB PO SCH (08:27)
[2017-03-01] MEDS: LORazepam 0.5 MG TAB PO SCH ×2 (08:27→12:04)
[2017-03-01] MEDS: FENOFIBRATE 160 MG TAB PO SCH (08:27)
[2017-03-01] MEDS: LITHIUM CARBONATE 300 MG CAP PO SCH ×3 (08:27→21:35)
[2017-03-01] MEDS: NICOTINE 14MG/24HR PATCH TRANSDERM SCH (08:27)
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
[2017-03-01] MEDS: LORazepam 1 MG TAB PO PRN (17:50)
[2017-03-01] MEDS ORDERED: ZIPRASIDONE 20 MG VIAL IM ONE (17:58)
[2017-03-01] MEDS: ZIPRASIDONE 20 MG VIAL IM PRN (17:58)
[2017-03-01] MEDS ORDERED: WATER FOR INJECTION, STERILE 10 ML IV ONE (17:58)
[2017-03-01] MEDS ORDERED: QUEtiapine 200 MG TAB PO SCH (21:00)
[2017-03-01] MEDS: LORazepam 1 MG TAB PO SCH (21:35)
[2017-03-02] MEDS: FENOFIBRATE 160 MG TAB PO SCH (08:04)
[2017-03-02] MEDS: LITHIUM CARBONATE 300 MG CAP PO SCH ×3 (08:04→20:04)
[2017-03-02] MEDS: QUEtiapine 100 MG TAB PO SCH (08:04)
[2017-03-02] MEDS: NICOTINE 14MG/24HR PATCH TRANSDERM SCH (08:04)
[2017-03-02] MEDS: LORazepam 0.5 MG TAB PO SCH ×2 (08:04→13:34)
[2017-03-02] MEDS ORDERED: WATER FOR INJECTION, STERILE 10 ML IV ONE ×2 (09:18→18:48)
[2017-03-02] MEDS: ZIPRASIDONE 20 MG VIAL IM PRN ×2 (09:21→18:57)
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
[2017-03-02] MEDS: LORazepam 1 MG TAB PO PRN (18:24)
[2017-03-02] MEDS: LORazepam 1 MG TAB PO SCH (20:04)
[2017-03-02] MEDS ORDERED: OLANZapine 10 MG TAB PO SCH (21:00)
[2017-03-03] MEDS: LORazepam 1 MG TAB PO PRN ×2 (04:41→18:16)
[2017-03-03] MEDS: LORazepam 0.5 MG TAB PO SCH ×2 (08:15→12:36)
[2017-03-03] MEDS: LITHIUM CARBONATE 300 MG CAP PO SCH ×3 (08:16→20:52)
[2017-03-03] MEDS: NICOTINE 14MG/24HR PATCH TRANSDERM SCH (08:16)
[2017-03-03] MEDS: ZIPRASIDONE 20 MG VIAL IM PRN ×2 (08:16→17:04)
--- NOTE | 2017-03-03 08:54 | P.PN ---
Progress Note - Text Interval history: The patient is found in his room he follows me to an interview room. He reports he wants to be discharged as soon as possible. He states he feels bad for his father because the patient's mother is "acting crazy ". He states "my mother embarrasses me". "She needs help not me" the patient' s has no questions or concerns regarding his medications. We discussed that we change the Seroquel to Zyprexa. We discussed that he will be having lab work done tomorrow morning to check the lithium level BUN/creatinine and an ammonia level. The patient continues to isolate in his room except for meals. He states he did shower yesterday I will confirm with staff. Mental status exam: The patient is an alert male he seated in his chair he frequently moves while seated he does not make any eye contact he has some spontaneous speech. He continues to spontaneously report delusional thought content. He denies having any hallucinations. He denies having any suicidal or homicidal ideation intent or plan. Insight and judgment are poor. Affect is distraught in appearance he is almost tearful. Thoughts are not well organized as he will go from topic to topic with spontaneous speech. He is oriented to being in the hospital the month and year he incorrectly names the day of the week as Wednesday. Plan: The patient will continue on the Zyprexa we will increase to 15 mg at bedtime we will get lab work as noted above. He requires continued hospitalization due to the severity of his psychosis which impacts his ability to socialize and complete ADLs. The patient would further decompensate if discharged from the hospital at this time. We will continue monitoring him for safety.
[2017-03-03] MEDS: FENOFIBRATE 160 MG TAB PO SCH (09:10)
[2017-03-03] MEDS: OLANZapine 5 MG TAB PO SCH (20:52)
[2017-03-03] MEDS: LORazepam 1 MG TAB PO SCH (20:52)
[2017-03-04] MEDS: FENOFIBRATE 160 MG TAB PO SCH (08:18)
[2017-03-04] MEDS: LITHIUM CARBONATE 300 MG CAP PO SCH ×3 (08:19→19:59)
[2017-03-04] MEDS: LORazepam 0.5 MG TAB PO SCH ×2 (08:19→12:19)
[2017-03-04] MEDS: NICOTINE 14MG/24HR PATCH TRANSDERM SCH (08:19)
[2017-03-04 09:23] LABS: Blood Urea Nitrogen 18 mg/dL (9-20); Non-African American GFR(MDRD) >60 (>60 ml/min/1.73 sqM)
[2017-03-04 09:50] LABS: Lithium 0.6 mmol/L
--- NOTE | 2017-03-04 10:14 | P.PN ---
Progress Note - Text Interval history: The patient is found at the payphone in the hallway he follows me to an interview room. He states that he is feeling better. He states "I'm coming out of it" he states "I'm not thinking the same things I was thinking." He states he's been coming out of his room more he continues participate in meals he reports he has been showering. He does still have concern over his daughter safety he is not convinced that she is alive. He states that his mother is coming to pick him up because we told her he is being discharged today however we have not made those plans. Labs reviewed ammonia level is normal BUN/creatinine creatinine normal we are awaiting lithium level. He has no questions or concerns regarding medication he feels the Zyprexa may be providing benefit he is reporting no side effect. Mental status exam: The patient is alert he continues to have impaired eye contact but actually does make eye contact several times during the session. He appears less restless while seated. He reports his moods improving and he states "I'm at 100%". He does continue to have a delusional thought content but the severity may be decreasing. Thought process is mildly more organized. Insight and judgment is impaired. He demonstrates no verbal or physical aggressiveness. Affect is less labile he demonstrates no tearfulness today. He continues to under appreciate the severity of his presenting and current symptoms and asked to be discharged area Plan: The patient will continue on his current medications we may be seeing some improvement. He continues to be symptomatic and continues to require psychiatric hospitalization due to his current psychosis. Vital signs reviewed. We are awaiting the lithium level result area he is encouraged to attempt participating in the milieu more. We will continue to monitor him for safety. As he improves we will need input from his mother regarding current status versus baseline.
[2017-03-04] MEDS: ACETAMINOPHEN TAB 325 MG TAB PO PRN ×2 (10:26→17:32)
[2017-03-04] MEDS: LORazepam 1 MG TAB PO SCH (19:59)
[2017-03-04] MEDS: OLANZapine 5 MG TAB PO SCH (19:59)
[2017-03-05] MEDS: LITHIUM CARBONATE 300 MG CAP PO SCH ×3 (07:55→21:01)
[2017-03-05] MEDS: LORazepam 0.5 MG TAB PO SCH ×2 (07:55→12:48)
[2017-03-05] MEDS: FENOFIBRATE 160 MG TAB PO SCH (07:55)
[2017-03-05] MEDS: NICOTINE 14MG/24HR PATCH TRANSDERM SCH (07:55)
--- NOTE | 2017-03-05 09:04 | P.PN ---
Progress Note - Text Interval history: The patient is found in his room he is seated upright in bed he follows me to an interview room. He reports he is doing "100 times better". He states he's been trying to get out of his room more but will not attend groups. He continues to attend meals. During team meeting yesterday staff reported the patient continues to experience episodes of agitation where he appears anxious and requires some redirection. He demonstrated no violent tendencies. The patient lacks insight into that. We discussed utilization of the [facility]. He has no questions or concerns regarding his medication. I did review with him the lab results. He reports sleeping through the night staff report 7 hours of sleep. Mental status exam: The patient is alert he seated in the chair he is dressed in the same clothing each day. Eye contact is briefly improved he continues to look from side to side. Affect is brighter he has more spontaneous speech. He is endorsing no hallucinations he is endorsing no specific delusions but does still appear troubled by some delusional thought. Thought process is mildly more organized with brief conversation. With further questioning there is still some evidence of disorganization. Insight and judgment remain impaired. He demonstrates no verbal or physical aggressiveness. He has a disheveled appearance but hygiene seems adequate. He is reporting no suicidal or homicidal thoughts. Plan: The patient will continue on the current medication we will consider titrating the Zyprexa further if needed. Vital signs reviewed. It appears that he starting to make some slow progress I will confirm with the treatment team today regarding his behavior throughout the day. He requires continued hospitalization for psychiatric stabilization. He is not appropriate for discharge at this time. We would expect further decompensation if discharged home at this time.
[2017-03-05] MEDS: LORazepam 1 MG TAB PO SCH (21:01)
[2017-03-05] MEDS: OLANZapine 5 MG TAB PO SCH (21:01)
[2017-03-05] MEDS: ACETAMINOPHEN TAB 325 MG TAB PO PRN (22:55)
[2017-03-06] MEDS: LITHIUM CARBONATE 300 MG CAP PO SCH ×3 (09:08→21:21)
[2017-03-06] MEDS: NICOTINE 14MG/24HR PATCH TRANSDERM SCH (09:08)
[2017-03-06] MEDS: LORazepam 0.5 MG TAB PO SCH ×2 (09:09→12:37)
[2017-03-06] MEDS: FENOFIBRATE 160 MG TAB PO SCH (09:09)
[2017-03-06] MEDS: ACETAMINOPHEN TAB 325 MG TAB PO PRN (12:37)
[2017-03-06] MEDS ORDERED: WATER FOR INJECTION, STERILE 10 ML IV ONE (18:32)
[2017-03-06] MEDS: ZIPRASIDONE 20 MG VIAL IM PRN (18:36)
--- NOTE | 2017-03-06 19:38 | P.PN ---
Progress Note - Text Date of service: 03/06/2017 Chief complaint: "I feel better today " Subjective: The patient has been seen today as follow-up, chart reviewed, case discussed with the treatment team. Patient minimized depression and he denies suicidal thoughts. He reported slipped "on and off" yesterday but he had good night sleep and he reports slept for about 8 hours. Patient denies any psychotic symptoms including hallucinations and no delusions could be elicited. Patient presented paranoid and guarded and very superficial in answering questions. Patient denies any manic symptoms. The patient takes his medication and he denies any side effect. Review of lithium level on March 04 was 0.6 and ammonia level at the same day was less than 9. Review of other systems: Patient denies any physical symptoms besides what has been mentioned above. No breathing problems, no chest pain reported today. Objective: Vitals has been reviewed. Mental status examination; The patient appears his stated age, fairly groomed, with no specific features. Patient has normal gait, with normal arm was swinging, with no abnormal movements. Patient has normal psychomotor activity. Speech was normal rate but very low tone. Mood was not elevated not depressed with flat affect. Thought process was characterized by thought blocking but coherent. Thought content was guarded and paranoid but not delusional and he denies suicidal or homicidal thoughts. The patient was alert but not fully oriented to time, but fully oriented to place and situation. The patient has very limited insight and judgment about his psychiatric disorder and treatment. Assessment: Bipolar disorder most recent manic with psychotic features Plan: Continue inpatient level of care for further stabilization and monitoring. Continue current management including psychiatric medications lithium 300 mg 3 times a day, Ativan 1 mg at bedtime, and Zyprexa 15 mg at bedtime.
[2017-03-06] MEDS: LORazepam 1 MG TAB PO SCH (21:20)
[2017-03-06] MEDS: OLANZapine 5 MG TAB PO SCH (21:21)
[2017-03-07] MEDS: FENOFIBRATE 160 MG TAB PO SCH (08:19)
[2017-03-07] MEDS: NICOTINE 14MG/24HR PATCH TRANSDERM SCH (08:20)
[2017-03-07] MEDS: LITHIUM CARBONATE 300 MG CAP PO SCH ×3 (08:21→21:00)
[2017-03-07] MEDS: LORazepam 0.5 MG TAB PO SCH ×2 (08:21→13:15)
--- NOTE | 2017-03-07 16:27 | P.PN ---
Progress Note - Text Date of service: 03/07/2017 Chief complaint: "I feel very good today " Subjective: The patient has been seen today as follow-up, chart reviewed, case discussed with the treatment team. Patient reports feels "better" and denies any suicidal or homicidal thoughts. He reports his depression "went away". He is willing to discuss discharge, and reports plan to enjoy time with the family after release from hospital. Patient6 reports willing to continue with outpatient psychiatric care after discharge. Sleep was "great" last night besides couple of wake up but not for long. Appetite is "good" and denies any concentration problems. The patient denies any manic symptoms including sustained period of time with elevated or irritable mood, impulsive or irrational behavior, inflated self- esteem, or absence need to sleep. The patient denies any auditory or visual hallucinations. Also the patient denies any paranoid ideation. Review of other systems: Patient denies any physical symptoms besides what has been mentioned above. No breathing problems, no chest pain reported today. Objective: Vitals has been reviewed. Mental status examination; The patient appears his stated age, fairly groomed, with no specific features. Patient has normal gait, with normal arm was swinging, with no abnormal movements. Patient has normal psychomotor activity. Speech was normal rate but very low tone. Mood was not elevated not depressed with constricted affect. Thought process was characterized by thought scarce but coherent. Thought content was less guarded and denies paranoid ideation, not delusional and he denies suicidal or homicidal thoughts. The patient was alert but oriented to time, person, and situation, but not fully oriented to place. The patient has better insight and judgment about his psychiatric disorder and treatment. Assessment: Patient showed improvement of his psychiatric symptoms and presented brighter affect and more cooperative, less guarded. Bipolar disorder most recent manic with psychotic features Plan: Continue inpatient level of care for further stabilization and monitoring. Continue current management including psychiatric medications lithium 300 mg 3 times a day, Ativan 1 mg at bedtime, and Zyprexa 15 mg at bedtime.
[2017-03-07] MEDS: OLANZapine 5 MG TAB PO SCH (21:00)
[2017-03-07] MEDS: LORazepam 1 MG TAB PO SCH (21:00)
[2017-03-08] MEDS: LITHIUM CARBONATE 300 MG CAP PO SCH ×3 (08:16→21:12)
[2017-03-08] MEDS: FENOFIBRATE 160 MG TAB PO SCH (08:16)
[2017-03-08] MEDS: LORazepam 0.5 MG TAB PO SCH ×2 (08:16→12:07)
[2017-03-08] MEDS: NICOTINE 14MG/24HR PATCH TRANSDERM SCH (08:16)
[2017-03-08] MEDS: LORazepam 1 MG TAB PO PRN (15:56)
--- NOTE | 2017-03-08 20:20 | P.PN ---
Progress Note - Text DATE OF SERVICE: 03/08/2017 CHIEF COMPLAINT: The patient was admitted due to hallucinations and delusions. He had significant delusions with a somatic focus saying things like he experience flashes in his body and vibrations. He felt he could perceive thoughts of others. He had racing thoughts. He had hopeless feelings. INTERVAL HISTORY: The patient reports that he is doing fairly well. It is noted that over the weekend he reported good progress with better mood and outlook. He felt his medications have been helping him. His thoughts are clearer and he has had much less thoughts of a bizarre nature. He has been not coming out more though says she is not someone to handle groups very well. He has been sleeping well. He hasn't had change in his general health. He tolerates his psychotropic medications. He does exhibit some persistent repetitive body movements. MENTAL STATUS EXAM: Patient gave fair eye contact. Psychomotor activity was somewhat restless. He rocked quite a bit as he has sat though not to an exaggerated extent. He answered questions appropriately with brief responses. His thoughts were coherent and goal directed. His affect was somewhat blunted though not significantly so. He smiled a little. His mood was quiet though not down or depressed. There was no immediate evidence for thought disorder. ASSESSMENT: I will continue the current diagnosis and treatment plan. We will continue to make efforts to engage the patient in individual and group therapeutic activities. I will continue psychotropic medications the same. I will check a lithium level in the morning. I discussed long-term issues related to management of lithium. We reviewed signs and symptoms of lithium toxicity. We will continue to focus on stabilization and discharge planning.
[2017-03-08] MEDS: OLANZapine 5 MG TAB PO SCH (21:11)
[2017-03-08] MEDS: LORazepam 1 MG TAB PO SCH (21:12)
[2017-03-09] MEDS: NICOTINE 14MG/24HR PATCH TRANSDERM SCH (08:07)
[2017-03-09] MEDS: FENOFIBRATE 160 MG TAB PO SCH (08:07)
[2017-03-09] MEDS: LORazepam 0.5 MG TAB PO SCH ×2 (08:07→12:04)
[2017-03-09] MEDS: LITHIUM CARBONATE 300 MG CAP PO SCH ×3 (08:07→20:47)
--- NOTE | 2017-03-09 12:36 | P.PN ---
Progress Note - Text DATE OF SERVICE: 03/09/2017 CHIEF COMPLAINT: The patient was admitted due to hallucinations and delusions. He had significant delusions with a somatic focus saying things like he experience flashes in his body and vibrations. He felt he could perceive thoughts of others. He had racing thoughts. He had hopeless feelings. INTERVAL HISTORY: The patient has been doing fairly well. He had a quiet evening last night. He slept well. He has been up and about. He wanders the unit. He tends to keep to himself. He will interact with others approach him. He feels his mood is improving. He has a better outlook. He has been able to work out issues important to him for discharge. He continues to have moderate amount of movement disorder. He tolerates his psychotropic medications. MENTAL STATUS EXAM: The patient gave good eye contact. Psychomotor activity was a little restless. He had movements in his trunk and extremities. Answered questions appropriately. His thoughts were clear. His affect was in a reasonable range. He smiled a little. His mood was even. He didn't appear to be distressed. There was no indication of thought disorder. ASSESSMENT: I will continue the current diagnosis and treatment plan. We will continue psychotropic medications the same. I reviewed discharge planning issues with the patient. I nticipate that the patient will be discharged in the next few days.
[2017-03-09] MEDS: LORazepam 1 MG TAB PO SCH (20:47)
[2017-03-09] MEDS: OLANZapine 5 MG TAB PO SCH (20:47)
[2017-03-10 06:45] VITALS: BP 128/67; PULSE 70; RESP 16; TEMP 97.8
[2017-03-10] MEDS: LORazepam 0.5 MG TAB PO SCH (08:22)
[2017-03-10] MEDS: LITHIUM CARBONATE 300 MG CAP PO SCH (08:23)
[2017-03-10] MEDS: FENOFIBRATE 160 MG TAB PO SCH (08:23)
[2017-03-10] MEDS: NICOTINE 14MG/24HR PATCH TRANSDERM SCH (08:23)
--- NOTE | 2017-03-10 10:56 | P.DS ---
Providers Date of admission: 02/24/17 23:47 Expected date of discharge: 03/10/17 Attending physician: Jimbo García Consults: 02/25/17 00:01 Consult Physician Routine Consulting Provider: Dolores Reyes Consult Reason/Comments: Medical Management Do you want consulting provider notified?: Yes, Notify in am Primary care physician: Daniel Anderson - Discharge Diagnosis(es) (1) Bipolar I disorder, current or most recent episode manic, severe Current Visit: Yes Status: Acute Priority: High (2) ADHD Current Visit: Yes Status: Acute Priority: Medium Hospital Course: Brief summary of admission note: This patient is a 26-year-old single male who was admitted to the mental health unit with acute symptoms of psychosis in the context of having bipolar disorder. The patient reported he had telekinetic ibrahim he appeared to be responding to internal stimuli and lack insight into the need for admission. He was brought to the hospital by his mother. She reported he had been acting aggressively. The patient stated he did not feel safe in that he was receiving "vibrations" from others. For full details please refer to my psychiatric evaluation dated 02/25/2017. Summary of hospital course: The patient was admitted to the mental health unit a second clinical certificate was completed. He did meet with an refractory specialist for the deferral conference and he decided to defer the court hearing. I did discuss the patient's care upon admission with his outpatient psychiatrist Dr. Stevenson. The patient had been on a low dose of Seroquel and seemed to be noncompliant with that fully oriented we did not continue the Celexa or Adderall. We did try to utilize Seroquel and titrated the dose. He felt more tired and it was having no effect on his symptoms of chandni and psychosis. I did have a discussion with the patient's mother and we discussed other medication we might use to stabilize him as there had been little improvement at that point. We did initiate lithium 300 mg 3 times daily and I also initiated Zyprexa which was titrated. Alamillo level was drawn which was 0.6. Zyprexa was titrated to 15 mg at bedtime. After several days of being on that medication combination the patient started to show improvement. His mood and affect lability ceased. He would not attend groups but he would come out of his room and walk in the hallway. He did consistently attending meals. We have been in touch with his mother numerous times via phone. She has left feedback was social work. The patient is doing better than he ever has and she is hoping to take him home today. The patient states he is "better" he is motivated for discharge and has no questions regarding his psychotropic medications. Mental status exam: The patient is a male appearing his stated age he is dressed in his own clothing hygiene grooming are adequate. Eye contact is much improved. Speech is fluent spontaneous nonpressured. Affect is constricted. He reports his mood is "better". He reports no hopelessness thinking, no suicidal or homicidal ideation intent or plan. He is endorsing no auditory or visual hallucinations area and he reports he feels safe he is endorsing no paranoid or persecutory thinking. He states he does not believe that his daughter was killed as that was a delusional thought prevalent throughout this hospitalization. He demonstrates no verbal or physical aggressiveness. He is oriented to person place and date. He demonstrates future oriented thinking in discussing things he will do upon return home. Impressions 1. Bipolar 1 disorder most recent manic with psychosis, rule out history of PTSD, history of ADHD, cannabis use disorder 2. History of Crohn's disease, reported history of ammonia elevations, hyperlipidemia Plan: The patient will be discharged from the mental health unit today to return home residing with his mother. He will continue on lithium carbonate 300 mg 3 times daily and Zyprexa 15 mg at bedtime as well as Ativan that was previously prescribed by Dr. Stevenson. The patient has demonstrated a significant reduction in psychosis he does not appear manic at this time. He is able to participate in his own activities of daily living. He is voicing no thoughts of self-harm or harm to others. There is no imminent safety risk is appropriate for transition back to outpatient care. Social work will confirm his outpatient follow-up appointment for mental health services. He is instructed to discontinue use of marijuana I would recommend not restarting a stimulant as it may exacerbate his psychosis. These issues will be further addressed with outpatient care. He is instructed to return to the hospital with any acute safety concerns. Plan - Discharge Summary New Discharge Prescriptions: New Alamillo Carbonate 300 mg PO TID #90 cap Nicotine 14Mg/24Hr Patch [Habitrol] 1 patch TRANSDERM DAILY #12 patch OLANZapine 15 mg PO HS #30 tablet Continue Fenofibrate Nanocrystallized [Tricor] 145 mg PO DAILY LORazepam [Ativan] 1 mg PO HS #15 LORazepam [Ativan] 0.5 mg PO BID@0800,1500 #30 Discontinued QUEtiapine [SEROquel] 150 mg PO HS QUEtiapine [SEROquel] 25 mg PO QAM Dextroamphetamine/Amphetamine [Adderall] 10 mg PO BID Citalopram Hydrobromide [CeleXA] 20 mg PO DAILY Discharge Medication List Fenofibrate Nanocrystallized [Tricor] 145 mg PO DAILY 02/24/17 [History] LORazepam [Ativan] 0.5 mg PO BID@0800,1500 #30 03/10/17 [Rx] LORazepam [Ativan] 1 mg PO HS #15 03/10/17 [Rx] Alamillo Carbonate 300 mg PO TID #90 cap 03/10/17 [Rx] Nicotine 14Mg/24Hr Patch [Habitrol] 1 patch TRANSDERM DAILY #12 patch 03/10/17 [ Rx] OLANZapine 15 mg PO HS #30 tablet 03/10/17 [Rx] Follow up Appointment(s)/Referral(s): Daniel Anderson DO [Primary Care Provider] - 1-2 days Patient Instructions/Handouts: Brief Psychotic Disorder (ED)
== END 2017-03-10 12:33 | disposition home or self-care (01) | DRG 885 ==
LOC: EC 17:43 → 3MHU 23:47
PROVIDERS: ADMIT Psychiatry & Neurology Psychiatry; ATTEND Psychiatry & Neurology Psychiatry
DX: F31.2 Bipolar disorder, current episode manic severe with psychotic features (principal); K50.90 Crohn's disease, unspecified, without complications; E78.1 Pure hyperglyceridemia; E78.5 Hyperlipidemia, unspecified; F10.10 Alcohol abuse, uncomplicated; F12.90 Cannabis use, unspecified, uncomplicated; F17.210 Nicotine dependence, cigarettes, uncomplicated; F43.10 Post-traumatic stress disorder, unspecified; F90.9 Attention-deficit hyperactivity disorder, unspecified type; K21.9 Gastro-esophageal reflux disease without esophagitis; Z79.899 Other long term (current) drug therapy; Z81.8 Family history of other mental and behavioral disorders; Z87.442 Personal history of urinary calculi; Z91.19 Patient's noncompliance with other medical treatment and regimen
CPT/HCPCS: 36415; 80053; 80061; 80178; 80306; 81003; 82075; 82140; 82306; 82550; 82553; 82565; 83605; 83735; 84100; 84443; 84484; 84520; 85025; 85610; 85730; 87086; 93005; 96360; 96361; 99285

== ENCOUNTER → 2017-04-16 | Outpatient (CLI) | payer OTHER ==
[2017-04-16 11:02] LABS: Basophils % (A) 1 %; CH 31.6; CHCM 34.1; Eosinophils # (A) 0.3 k/uL (0-0.7); Eosinophils % (A) 4 %; HCT 47.4 % (39.0-53.0); HDW 2.76; HGB 16.1 gm/dL (13.0-17.5); Luc # (Auto) 0.16; Luc % (Auto) 2; Lymphocytes # (A) 2.1 k/uL (1.0-4.8); Lymphocytes % (A) 25 %; MCH 31.6 pg (25.0-35.0); MCHC 33.9 g/dL (31.0-37.0); MCV 93.3 fL (80.0-100.0); Mean Platelet Volume 6.8; Monocytes # (A) 0.5 k/uL (0-1.0); Monocytes % (A) 6 %; Neutrophils # (A) 5.3 k/uL (1.3-7.7); Neutrophils % (A) 63 %; RBC 5.08 m/uL (4.30-5.90); RDW 13.4 % (11.5-15.5); WBC 8.4 k/uL (3.8-10.6); WBC (Perox) 8.86
[2017-04-16 11:27] LABS: ALT 98 U/L (21-72); AST 54 U/L (17-59); Alkaline Phosphatase 56 U/L (38-126); Anion Gap 10 mmol/L; Blood Urea Nitrogen 13 mg/dL (9-20); Calcium 9.7 mg/dL (8.4-10.2); Carbon Dioxide 24 mmol/L (22-30); Chloride 106 mmol/L (98-107); Cholesterol 229 mg/dL (<200); Glucose 84 mg/dL (74-99); HDL Cholesterol 37 mg/dL (40-60); Non-African American GFR(MDRD) >60 (>60 ml/min/1.73 sqM); Potassium 4.2 mmol/L (3.5-5.1); Sodium 140 mmol/L (137-145); Total Bilirubin 0.6 mg/dL (0.2-1.3); Total Protein 7.3 g/dL (6.3-8.2)
== END | disposition home or self-care (01) ==
LOC: LABWHC1 10:40
PROVIDERS: ATTEND Family Medicine
DX: E78.1 Pure hyperglyceridemia (principal); F31.9 Bipolar disorder, unspecified; R79.89 Other specified abnormal findings of blood chemistry
CPT/HCPCS: 36415; 80053; 80061; 82140; 84443; 85025

== ENCOUNTER → 2017-04-19 | Outpatient (CLI) | payer OTHER | END | disposition home or self-care (01) | LOC: LABWHC1 13:46 | PROVIDERS: ATTEND Family Medicine | DX: F31.9 Bipolar disorder, unspecified (principal) | CPT/HCPCS: 36415; 80178 ==

== ENCOUNTER → 2017-11-12 | Outpatient (CLI) | payer OTHER | END | disposition home or self-care (01) | LOC: LABWHC1 15:10 | PROVIDERS: ATTEND Family Medicine | DX: E78.1 Pure hyperglyceridemia (principal); K50.90 Crohn's disease, unspecified, without complications; R79.89 Other specified abnormal findings of blood chemistry; F31.9 Bipolar disorder, unspecified; Z51.81 Encounter for therapeutic drug level monitoring | CPT/HCPCS: 36415; 82140 ==

== ENCOUNTER → 2018-03-31 | Outpatient (CLI) | payer OTHER ==
[2018-03-31 12:33] LABS: Basophils % (A) 0 %; Eosinophils # (A) 0.3 k/uL (0-0.7); Eosinophils % (A) 3 %; HCT 49.4 % (39.0-53.0); HGB 16.2 gm/dL (13.0-17.5); Lymphocytes # (A) 2.1 k/uL (1.0-4.8); Lymphocytes % (A) 26 %; MCH 30.7 pg (25.0-35.0); MCHC 32.7 g/dL (31.0-37.0); MCV 93.9 fL (80.0-100.0); Mean Platelet Volume 6.8; Monocytes # (A) 0.4 k/uL (0-1.0); Monocytes % (A) 5 %; Neutrophils # (A) 5.4 k/uL (1.3-7.7); Neutrophils % (A) 65 %; Platelet Count 251 k/uL (150-450); RBC 5.27 m/uL (4.30-5.90); RDW 12.7 % (11.5-15.5); WBC 8.4 k/uL (3.8-10.6)
[2018-03-31 13:08] LABS: ALT 43 U/L (21-72); AST 35 U/L (17-59); Albumin 4.7 g/dL (3.5-5.0); Alkaline Phosphatase 57 U/L (38-126); Anion Gap 11 mmol/L; Blood Urea Nitrogen 12 mg/dL (9-20); Carbon Dioxide 23 mmol/L (22-30); Chloride 107 mmol/L (98-107); Cholesterol 195 mg/dL (<200); Glucose 89 mg/dL (74-99); HDL Cholesterol 37 mg/dL (40-60); LDL Cholesterol,Calculated 104 mg/dL (0-99); Lithium 0.6 mmol/L; Potassium 4.1 mmol/L (3.5-5.1); Sodium 141 mmol/L (137-145); Total Bilirubin 1.1 mg/dL (0.2-1.3); Total Protein 7.2 g/dL (6.3-8.2); Triglycerides 268 mg/dL (<150)
== END ==
LOC: LABWHC1 12:04
PROVIDERS: ATTEND Family Medicine
DX: Z51.81 Encounter for therapeutic drug level monitoring (principal); E78.1 Pure hyperglyceridemia; K50.90 Crohn's disease, unspecified, without complications; R79.89 Other specified abnormal findings of blood chemistry
CPT/HCPCS: 36415; 80053; 80061; 80178; 82140; 85025

== ENCOUNTER → 2018-04-13 | Outpatient (CLI) | payer OTHER | END | disposition home or self-care (01) | LOC: LABWHC1 12:57 | PROVIDERS: ATTEND Family Medicine | DX: R79.89 Other specified abnormal findings of blood chemistry (principal) | CPT/HCPCS: 36415; 82140 ==

== ENCOUNTER → 2018-04-20 | Outpatient (CLI) | payer OTHER | END | disposition home or self-care (01) | LOC: LABWHC1 11:35 | PROVIDERS: ATTEND Family Medicine | DX: R79.89 Other specified abnormal findings of blood chemistry (principal) | CPT/HCPCS: 36415; 82140 ==

== ENCOUNTER → 2018-05-02 | Outpatient (CLI) | payer OTHER | END | disposition home or self-care (01) | LOC: LABWHC1 14:34 | PROVIDERS: ATTEND Family Medicine | DX: R79.89 Other specified abnormal findings of blood chemistry (principal) | CPT/HCPCS: 36415; 82140 ==

== ENCOUNTER → 2018-06-30 | Outpatient (CLI) | payer OTHER ==
[2018-06-30 19:05] LABS: Albumin 4.8 g/dL (3.80-4.90); Albumin/Globulin Ratio 2.67 (1.20-2.10); Anion Gap 5.8 mmol/L (4.00-12.00); Calcium 9.9 mg/dL (8.7-10.3); Carbon Dioxide 29.2 mmol/L (21.6-31.8); Globulin 1.8 g/dL (2.1-3.7); Total Bilirubin 0.4 mg/dL (0.2-1.2); Total Protein 6.6 g/dL (6.2-8.2)
[2018-06-30 20:50] LABS: Hemoglobin A1C 5.2 % (4.0-6.0)
== END | disposition home or self-care (01) ==
LOC: LABWHC1 13:05
PROVIDERS: ATTEND Family Medicine
DX: R73.09 Other abnormal glucose (principal); R42 Dizziness and giddiness; R79.89 Other specified abnormal findings of blood chemistry
CPT/HCPCS: 36415; 80053; 82140; 83036

== ENCOUNTER 2018-08-08 17:56 | Emergency (ER) | payer OTHER ==
[2018-08-08 18:06] VITALS: TEMP 97.6
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
[2018-08-08 19:47] LABS: Appearance,Urine Clear (Clear); Basophils % (A) 0 %; Bilirubin,Urine Negative (Negative); Blood,Urine Negative (Negative); Color,Urine Light Yellow; Eosinophils # (A) 0.2 k/uL (0-0.7); Eosinophils % (A) 2 %; Glucose,Urine (UA) Negative (Negative); HCT 46.8 % (39.0-53.0); HGB 15.8 gm/dL (13.0-17.5); Ketones,Urine Negative (Negative); Leukocyte Esterase,Urine Negative (Negative); Lymphocytes # (A) 3.4 k/uL (1.0-4.8); Lymphocytes % (A) 39 %; MCH 31.6 pg (25.0-35.0); MCHC 33.7 g/dL (31.0-37.0); MCV 93.6 fL (80.0-100.0); Mean Platelet Volume 6.9; Monocytes # (A) 0.4 k/uL (0-1.0); Monocytes % (A) 4 %; Neutrophils # (A) 4.6 k/uL (1.3-7.7); Neutrophils % (A) 53 %; Nitrite,Urine Negative (Negative); PH, Urine 6.5 (5.0-8.0); Platelet Count 211 k/uL (150-450); Protein,Urine Negative (Negative); Specific Gravity,Urine 1.007 (1.001-1.035); Urobilinogen,Urine <2.0 mg/dL (<2.0); WBC 8.7 k/uL (3.8-10.6)
[2018-08-08 19:54] LABS: ALT 47 U/L (21-72); AST 38 U/L (17-59); Albumin 4.6 g/dL (3.5-5.0); Alkaline Phosphatase 52 U/L (38-126); Anion Gap 11 mmol/L; Blood Urea Nitrogen 13 mg/dL (9-20); Calcium 9.8 mg/dL (8.4-10.2); Carbon Dioxide 23 mmol/L (22-30); Chloride 106 mmol/L (98-107); Glucose 79 mg/dL (74-99); Potassium 4.8 mmol/L (3.5-5.1); Sodium 140 mmol/L (137-145); Total Bilirubin 0.5 mg/dL (0.2-1.3); Total Protein 7.4 g/dL (6.3-8.2)
[2018-08-08 19:57] LABS: Creatine Kinase 200 U/L (55-170)
[2018-08-08 19:58] LABS: Amphetamine Screen,Urine Detected (NotDetected); Barbiturate Screen,Urine Not Detected (NotDetected); Benzodiazepines Screen,Urine Detected (NotDetected); Cocaine Screen,Urine Not Detected (NotDetected); Methadone Screen, Urine Not Detected (NotDetected); Opiate Screen,Urine Not Detected (NotDetected); Oxycodone Screen, Urine Not Detected (NotDetected); Phencyclidine Screen,Urine Not Detected (NotDetected); Tricyclic Antidepressant,Urine Not Detected (NotDetected); Urn Cannabinoid Scrn Detected (NotDetected)
[2018-08-08 20:11] LABS: Creatine Kinase MB 1.7 ng/mL (0.0-2.4); Troponin I <0.012 ng/mL (0.000-0.034)
[2018-08-08] MEDS: LORazepam 1 MG TAB PO STA ×2 (20:31→20:32)
[2018-08-08] MEDS ORDERED: LORazepam 2 MG/ML INJ IV STA (21:13)
--- NOTE | 2018-08-08 21:27 | XR ---
EXAMINATION TYPE: XR chest 2V DATE OF EXAM: 08/08/2018 COMPARISON: 10/27/2015 HISTORY: Altered mental status TECHNIQUE: Frontal and lateral views of the chest are obtained. FINDINGS: There is no heart failure nor confluent pneumonic infiltrate. Costophrenic angles are surinder r. There is poor inspiration. Bony thorax is intact. IMPRESSION: No active cardiopulmonary disease. No significant change.
[2018-08-08] MEDS ORDERED: diphenhydrAMINE 50 MG/ML 1 ML VIAL IVP STA (21:56)
[2018-08-09 00:31] VITALS: BP 110/77; PULSE 82; RESP 16
== END 2018-08-09 00:15 | disposition home or self-care (01) ==
LOC: EC 17:56
DX: F43.10 Post-traumatic stress disorder, unspecified (principal); F41.0 Panic disorder [episodic paroxysmal anxiety]; F31.9 Bipolar disorder, unspecified; F90.9 Attention-deficit hyperactivity disorder, unspecified type; F17.200 Nicotine dependence, unspecified, uncomplicated; Z88.8 Allergy status to other drugs, medicaments and biological substances; Z79.899 Other long term (current) drug therapy
CPT/HCPCS: 36415; 93005; 80053; 82550; 82553; 84484; 85025; 81003; 80306; 71046; 99284; 96374; 96375; J2060; J1200; 82075

== ENCOUNTER 2018-10-28 19:53 | Emergency (ER) | payer OTHER ==
[2018-10-28 20:03] VITALS: RESP 20
[2018-10-28] MEDS ORDERED: MORPHINE SULFATE 4 MG/ML SYRINGE IVP STA (20:24)
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
[2018-10-28] MEDS ORDERED: SODIUM CHLORIDE 0.9% 1,000 ML IV ONE ×2 (21:35→22:58)
[2018-10-28 21:42] LABS: Glucose,Whole Blood 86 mg/dL (75-99)
[2018-10-28 21:58] LABS: Basophils % (A) 1 %; Eosinophils # (A) 0.2 k/uL (0-0.7); Eosinophils % (A) 2 %; HCT 48.2 % (39.0-53.0); Lymphocytes # (A) 3.6 k/uL (1.0-4.8); Lymphocytes % (A) 41 %; MCH 32.2 pg (25.0-35.0); MCHC 33.3 g/dL (31.0-37.0); MCV 96.7 fL (80.0-100.0); Mean Platelet Volume 6.8; Monocytes # (A) 0.3 k/uL (0-1.0); Monocytes % (A) 3 %; Neutrophils # (A) 4.5 k/uL (1.3-7.7); Neutrophils % (A) 51 %; Platelet Count 264 k/uL (150-450); RBC 4.99 m/uL (4.30-5.90); RDW 13.4 % (11.5-15.5); WBC 8.8 k/uL (3.8-10.6)
[2018-10-28 22:02] LABS: Appearance,Urine Clear (Clear); Bilirubin,Urine Negative (Negative); Blood,Urine Negative (Negative); Color,Urine Light Yellow; Glucose,Urine (UA) Negative (Negative); Ketones,Urine Negative (Negative); Leukocyte Esterase,Urine Negative (Negative); Nitrite,Urine Negative (Negative); PH, Urine 6.5 (5.0-8.0); Protein,Urine Negative (Negative); Specific Gravity,Urine 1.003 (1.001-1.035); Urobilinogen,Urine <2.0 mg/dL (<2.0)
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
[2018-10-28 22:05] LABS: INR 0.9 (<1.2); Partial Thromboplastin Time 27.2 sec (22.0-30.0); Prothrombin Time 9.9 sec (9.0-12.0)
[2018-10-28 22:07] LABS: ALT 36 U/L (21-72); AST 41 U/L (17-59); Albumin 4.8 g/dL (3.5-5.0); Alkaline Phosphatase 61 U/L (38-126); Anion Gap 12 mmol/L; Blood Urea Nitrogen 13 mg/dL (9-20); Calcium 9.8 mg/dL (8.4-10.2); Carbon Dioxide 23 mmol/L (22-30); Chloride 107 mmol/L (98-107); Glucose 85 mg/dL (74-99); Potassium 4.3 mmol/L (3.5-5.1); Sodium 142 mmol/L (137-145); Total Bilirubin 0.7 mg/dL (0.2-1.3); Total Protein 7.4 g/dL (6.3-8.2)
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
[2018-10-28 22:10] LABS: Alcohol 163 mg/dL
[2018-10-28 22:13] LABS: Amphetamine Screen,Urine Detected (NotDetected); Barbiturate Screen,Urine Not Detected (NotDetected); Benzodiazepines Screen,Urine Detected (NotDetected); Cocaine Screen,Urine Not Detected (NotDetected); Methadone Screen, Urine Not Detected (NotDetected); Opiate Screen,Urine Not Detected (NotDetected); Oxycodone Screen, Urine Not Detected (NotDetected); Phencyclidine Screen,Urine Not Detected (NotDetected); Tricyclic Antidepressant,Urine Not Detected (NotDetected); Urn Cannabinoid Scrn Detected (NotDetected)
[2018-10-28] MEDS ORDERED: KETOROLAC 30 MG/ML 1 ML VIAL IVP STA (22:58)
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
[2018-10-29] MEDS ORDERED: MORPHINE SULFATE 4 MG/ML SYRINGE IVP STA (00:47)
[2018-10-29 04:46] VITALS: BP 118/69; PULSE 73; TEMP 97.3
== END 2018-10-29 05:29 | disposition home or self-care (01) ==
LOC: EC 19:53
DX: F10.129 Alcohol abuse with intoxication, unspecified (principal); R45.851 Suicidal ideations; R51 Headache; F31.9 Bipolar disorder, unspecified; F41.9 Anxiety disorder, unspecified; F17.200 Nicotine dependence, unspecified, uncomplicated; Z88.8 Allergy status to other drugs, medicaments and biological substances; Z79.899 Other long term (current) drug therapy; Z81.1 Family history of alcohol abuse and dependence; Y04.2XXA Assault by strike against or bumped into by another person, initial encounter; Y93.9 Activity, unspecified; Y92.009 Unspecified place in unspecified non-institutional (private) residence as the place of occurrence of the external cause
CPT/HCPCS: 36415; 80053; 85025; 85610; 85730; 81003; 80306; 70150; 71046; 72125; 70450; 99285; 96374; 96375; 96376; 96361 ×2; G0480; J2270 ×2; J1885; 80320; 82075

== ENCOUNTER 2018-11-25 16:00 | Inpatient (IN) | payer MEDICAID, OTHER ==
[2018-11-25] MEDS ORDERED: NICOTINE 14MG/24HR PATCH TRANSDERM STA (16:28)
--- NOTE | 2018-11-25 16:32 | ED ---
Psych HPI - General Chief Complaint: Psychiatric Symptoms Stated Complaint: Mental Health Time Seen by Provider: 11/25/18 16:12 Source: patient, RN notes reviewed Mode of arrival: wheelchair Limitations: no limitations - History of Present Illness Initial Comments: 28-year-old male presented to emergency department with mother from psychiatrist's office for evaluation. Patient had an appointment today for worsening OCD symptoms. Patient had increased anxiety, stated that he was suicidal there. Patient was sent over for admission. Patient denies any suicide patient this time. Denies any drug abuse. He does use medical marijuana no other drugs. Patient denies any physical complaints states she just very nervous, shaky and tearful. - Related Data Home Medications Medication Instructions Recorded Confirmed ALPRAZolam [Xanax] 1 mg PO TID 08/08/18 10/28/18 OLANZapine [ZyPREXA] 7.5 mg PO HS 08/08/18 10/28/18 lamoTRIgine [LaMICtal] 25 mg PO DAILY 08/08/18 10/28/18 lamoTRIgine [LaMICtal] 50 mg PO HS 08/08/18 10/28/18 Allergies Allergy/AdvReac Type Severity Reaction Status Date / Time citalopram [From Celexa] Allergy Unknown Verified 11/25/18 16:12 paroxetine [From Paxil] Allergy Unknown Verified 11/25/18 16:12 sertraline [From Zoloft] Allergy Unknown Verified 11/25/18 16:12 phenobarbital AdvReac Severe Rapid Verified 10/28/18 20:08 Heart Rate zolpidem tartrate AdvReac Unknown Altered Verified 10/28/18 20:08 [From Ambien] Mental Status estropipate [From Ogen 2.5] AdvReac Twitching Verified 10/28/18 20:08 of Legs haloperidol [From Haldol] AdvReac Agitation Verified 10/28/18 20:08 methylprednisolone AdvReac Altered Verified 10/28/18 20:08 [From Solu-Medrol] Mental Status Review of Systems ROS Statement: Those systems with pertinent positive or pertinent negative responses have been documented in the HPI. ROS Other: All systems not noted in ROS Statement are negative. Past Medical History Past Medical History: GERD/Reflux, GI Bleed, Renal Disease Additional Past Medical History / Comment(s): Gastritis, kidney stones, chrons, possible metabolic disorder History of Any Multi-Drug Resistant Organisms: None Reported Past Surgical History: Tonsillectomy Additional Past Surgical History / Comment(s): wisdom teeth removed. Past Anesthesia/Blood Transfusion Reactions: No Reported Reaction Additional Past Anesthesia/Blood Transfusion Reaction / Comment(s): NEVER HAD BLOOD TRANSFUSION Past Psychological History: ADD/ADHD, Anxiety, Bipolar, Depression, PTSD Smoking Status: Current every day smoker Past Alcohol Use History: Abuse Past Drug Use History: None Reported - Past Family History Sister(s) Additional Family Medical History / Comment(s): He has one sister that is healthy. He also has a 4-year-old daughter that is healthy. Father Family Medical History: GERD/Reflux Additional Family Medical History / Comment(s): Father is alive at age 60 recovered alcoholic with no major medical problems. Mother Additional Family Medical History / Comment(s): Mother is alive at age 58 recovered alcoholic and chronic back problems. General Exam Limitations: no limitations General appearance: alert, in no apparent distress, anxious Head exam: Present: atraumatic, normocephalic, normal inspection Eye exam: Present: normal appearance, PERRL, EOMI. Absent: scleral icterus, conjunctival injection, periorbital swelling ENT exam: Present: normal exam, normal oropharynx, mucous membranes moist Neck exam: Present: normal inspection, full ROM. Absent: tenderness, meningismus, lymphadenopathy Respiratory exam: Present: normal lung sounds bilaterally. Absent: respiratory distress, wheezes, rales, rhonchi, stridor Cardiovascular Exam: Present: regular rate, normal rhythm, normal heart sounds. Absent: systolic murmur, diastolic murmur, rubs, gallop, clicks Neurological exam: Present: alert, oriented X3 Course Vital Signs 11/25/18 16:09 Temperature 98.4 F Pulse Rate 80 Respiratory 16 Rate Blood Pressure 119/79 O2 Sat by Pulse 97 Oximetry Medical Decision Making - Medical Decision Making Patient will be admitted to mental health for evaluation medication adjustment Disposition Clinical Impression: Bipolar I disorder, current or most recent episode manic, severe, Acute anxiety Disposition: TRANSFER TO PSYCH HOSP/UNIT Referrals: Nancy Schofield MD [Primary Care Provider] - 1-2 days
[2018-11-25] MEDS ORDERED: LORazepam 1 MG TAB PO STA (16:42)
[2018-11-25 17:26] LABS: HCT 48.2 % (39.0-53.0); HGB 15.8 gm/dL (13.0-17.5); MCH 31.1 pg (25.0-35.0); MCHC 32.8 g/dL (31.0-37.0); MCV 95.1 fL (80.0-100.0); Mean Platelet Volume 6.5; Platelet Count 281 k/uL (150-450); RBC 5.07 m/uL (4.30-5.90); RDW 12.8 % (11.5-15.5); WBC 9.4 k/uL (3.8-10.6)
[2018-11-25 17:41] LABS: Anion Gap 9 mmol/L; Blood Urea Nitrogen 9 mg/dL (9-20); Calcium 10.3 mg/dL (8.4-10.2); Carbon Dioxide 23 mmol/L (22-30); Chloride 109 mmol/L (98-107); Glucose 74 mg/dL (74-99); Potassium 4.5 mmol/L (3.5-5.1); Sodium 141 mmol/L (137-145)
[2018-11-25] MEDS ORDERED: ACETAMINOPHEN TAB 325 MG TAB PO PRN (17:41)
[2018-11-25] MEDS ORDERED: MAG HYDROX/AL HYDROX/SIMETH 30 ML CUP PO PRN (17:41)
[2018-11-25] MEDS ORDERED: MAGNESIUM HYDROXIDE 2,400 MG/10 ML CUP PO PRN (17:41)
[2018-11-25 18:42] VITALS: BMI 27.8
[2018-11-25] MEDS: OLANZapine 5 MG TAB PO SCH (21:02)
[2018-11-25] MEDS: lamoTRIgine 25 MG TAB PO SCH (21:02)
[2018-11-25] MEDS ORDERED: ALPRAZolam 1 MG TAB PO SCH (22:00)
[2018-11-25] MEDS: diphenhydrAMINE 50 MG CAP PO SCH ×2 (22:49→22:52)
[2018-11-26] MEDS: clonazePAM 0.5 MG TAB PO SCH ×2 (00:33→20:53)
[2018-11-26] MEDS: NICOTINE 14MG/24HR PATCH TRANSDERM SCH (08:02)
[2018-11-26] MEDS: lamoTRIgine 25 MG TAB PO SCH ×2 (08:02→20:54)
[2018-11-26] MEDS: ALPRAZolam 1 MG TAB PO SCH ×3 (08:02→16:47)
[2018-11-26 08:20] LABS: Basophils % (A) 1 %; Eosinophils # (A) 0.2 k/uL (0-0.7); Eosinophils % (A) 2 %; Lymphocytes # (A) 2.3 k/uL (1.0-4.8); Lymphocytes % (A) 32 %; MCH 30.5 pg (25.0-35.0); MCV 95.2 fL (80.0-100.0); Mean Platelet Volume 6.9; Monocytes # (A) 0.4 k/uL (0-1.0); Monocytes % (A) 5 %; Neutrophils # (A) 4.3 k/uL (1.3-7.7); Neutrophils % (A) 59 %; Platelet Count 256 k/uL (150-450); RBC 5.25 m/uL (4.30-5.90); RDW 12.8 % (11.5-15.5); WBC 7.3 k/uL (3.8-10.6)
[2018-11-26 08:34] LABS: Albumin 4.7 g/dL (3.5-5.0); Bilirubin, Delta 0.2 mg/dL (0.0-0.2); Bilirubin,Unconjugated 0.8 mg/dL (0.0-1.1); Total Protein 7.3 g/dL (6.3-8.2)
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
[2018-11-26 16:46] LABS: Appearance,Urine Clear (Clear); Bilirubin,Urine Negative (Negative); Blood,Urine Negative (Negative); Color,Urine Light Yellow; Glucose,Urine (UA) Negative (Negative); Ketones,Urine Negative (Negative); Leukocyte Esterase,Urine Negative (Negative); Nitrite,Urine Negative (Negative); PH, Urine 7.5 (5.0-8.0); Protein,Urine Negative (Negative); Specific Gravity,Urine 1.007 (1.001-1.035); Urobilinogen,Urine <2.0 mg/dL (<2.0)
[2018-11-26] MEDS: diphenhydrAMINE 50 MG CAP PO SCH (20:53)
[2018-11-26] MEDS: ATORVASTATIN 10 MG TAB PO SCH (20:54)
[2018-11-26] MEDS: OLANZapine 5 MG TAB PO SCH (21:30)
[2018-11-26 22:46] LABS: Urine Alcohol Negative (Negative); Urine Barbiturate Negative (Negative); Urine Cocaine Negative (Negative); Urine Methadone Negative (Negative); Urine Opiates Negative (Negative); Urine Phencyclidine Negative (Negative)
[2018-11-27] MEDS: NICOTINE 14MG/24HR PATCH TRANSDERM SCH (08:24)
[2018-11-27] MEDS: lamoTRIgine 25 MG TAB PO SCH ×2 (08:24→21:05)
[2018-11-27] MEDS: FENOFIBRATE 160 MG TAB PO SCH (08:24)
[2018-11-27] MEDS: ALPRAZolam 1 MG TAB PO SCH ×3 (08:24→16:54)
[2018-11-27] MEDS: METRONIDAZOLE 0.75% TOPICAL SCH ×2 (16:41→21:09)
--- NOTE | 2018-11-27 18:15 | P.PN ---
Progress Note - Text IDENTIFICATION DATA: 28 year old male with history of History of bipolar disorder, PTSD, OCD who is going through medication adjustments through Dr. Dr. Stevenson office was admitted with worsening anxiety possibly related to his adderal and caffeine use. INTERVAL HISTORY: He reports feeling better. Denies symptoms of anxiety. Is complaint with medications. No side effects. Reports good sleep and appetite. Is complaint with unit routine. MENTAL STATUS EXAMINATION: 28 year old male appeared in fair grooming and hygiene. The patient is alert and oriented 4. Motor and speech behaviors are within normal limits. Mood is euthymic and affect constricted. thought processes linear thought content is negative for suicidal or homicidal ideation. Deneis current auditory or visual hallucinations. Denies paranoia. insight and judgment are IMPROVING ASSESSMENT AND PLAN: Panic disorder Continue current treatment
[2018-11-27] MEDS: diphenhydrAMINE 50 MG CAP PO SCH (21:05)
[2018-11-27] MEDS: clonazePAM 0.5 MG TAB PO SCH (21:05)
[2018-11-27] MEDS: OLANZapine 5 MG TAB PO SCH (21:05)
[2018-11-27] MEDS: ATORVASTATIN 10 MG TAB PO SCH (21:06)
[2018-11-28] MEDS: NICOTINE 14MG/24HR PATCH TRANSDERM SCH (08:59)
[2018-11-28] MEDS: FENOFIBRATE 160 MG TAB PO SCH (08:59)
[2018-11-28] MEDS: lamoTRIgine 25 MG TAB PO SCH ×2 (08:59→21:26)
[2018-11-28] MEDS: ALPRAZolam 1 MG TAB PO SCH (08:59)
[2018-11-28] MEDS: METRONIDAZOLE 0.75% TOPICAL SCH ×2 (09:39→22:43)
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
[2018-11-28] MEDS: clonazePAM 0.5 MG TAB PO SCH ×2 (15:50→21:26)
--- NOTE | 2018-11-28 17:02 | P.HPIM ---
History of Present Illness H&P Date: 11/28/18 The consult was requested at 9 AM on 11/28/2018 The patient is a 28-year-old male with a PMH of depression, anxiety, and polysubstance abuse who presented to the ED for suicidal ideation and anxiety. The patient was reportedly being tapered off of Zyprexa and consumed too much caffeine and subsequently developed severe anxiety. The patient reports marijuana use along with Klonopin and Adderall but denied any additional medical history and notes that he does not take any other medications. The patient was free of active complaints and denied chest pain, short of breath, nausea, vomiting, fever, chills, abdominal pain, diarrhea. Review of Systems Pertinent positives and negatives as discussed in HPI, a complete review of systems was performed and all other systems are negative. Past Medical History Past Medical History: GERD/Reflux, GI Bleed, Renal Disease Additional Past Medical History / Comment(s): Gastritis, kidney stones, chrons, possible metabolic disorder History of Any Multi-Drug Resistant Organisms: None Reported Past Surgical History: Tonsillectomy Additional Past Surgical History / Comment(s): wisdom teeth removed. Past Anesthesia/Blood Transfusion Reactions: No Reported Reaction Additional Past Anesthesia/Blood Transfusion Reaction / Comment(s): NEVER HAD BLOOD TRANSFUSION Smoking Status: Current every day smoker - Past Family History Sister(s) Additional Family Medical History / Comment(s): He has one sister that is healthy. He also has a 4-year-old daughter that is healthy. Father Family Medical History: GERD/Reflux Additional Family Medical History / Comment(s): Father is alive at age 60 recovered alcoholic with no major medical problems. Mother Additional Family Medical History / Comment(s): Mother is alive at age 58 recovered alcoholic and chronic back problems. Medications and Allergies Home Medications Medication Instructions Recorded Confirmed Type ALPRAZolam [Xanax] 1 mg PO TID 08/08/18 11/25/18 History OLANZapine [ZyPREXA] 7.5 mg PO HS 08/08/18 11/25/18 History lamoTRIgine [LaMICtal] 25 mg PO DAILY 08/08/18 11/25/18 History lamoTRIgine [LaMICtal] 50 mg PO HS 08/08/18 11/25/18 History Dextroamphetamine/Amphetamine 20 mg PO BID 11/25/18 11/25/18 History [Adderall Xr] FLUoxetine HCL 10 mg PO HS 11/25/18 11/25/18 History FLUoxetine HCL 20 mg PO DAILY 11/25/18 11/25/18 History Fenofibrate Nanocrystallized 145 mg PO DAILY 11/25/18 11/25/18 History [Tricor] Allergies Allergy/AdvReac Type Severity Reaction Status Date / Time citalopram [From Celexa] Allergy Unknown Verified 11/25/18 18:52 paroxetine [From Paxil] Allergy Unknown Verified 11/25/18 18:52 sertraline [From Zoloft] Allergy Unknown Verified 11/25/18 18:52 phenobarbital AdvReac Severe Rapid Verified 11/25/18 18:52 Heart Rate zolpidem tartrate AdvReac Unknown Altered Verified 11/25/18 18:52 [From Ambien] Mental Status estropipate [From Ogen 2.5] AdvReac Twitching Verified 11/25/18 18:52 of Legs haloperidol [From Haldol] AdvReac Agitation Verified 11/25/18 18:52 methylprednisolone AdvReac Altered Verified 11/25/18 18:52 [From Solu-Medrol] Mental Status Physical Exam Vitals: Vital Signs Temp Pulse Resp BP 11/28/18 06:50 97.2 F L 60 16 111/67 11/27/18 21:09 67 111/78 11/27/18 20:14 81 118/73 General: non toxic, no distress, appears at stated age, normal weight Derm: no unusual rashes/lesions no unusual ecchymoses, warm, dry Head: atraumatic, normocephalic, symmetric Eyes: EOMI, no lid lag, anicteric sclera, pupils equal round reactive to light ENT: Nose and ears atraumatic, no thrush, no pharyngeal erythema Neck: No thyromegaly, no cervical lymphadenopathy, trachea midline, supple Mouth: no lip lesion, mucus membranes moist Cardiovascular: S1S2 reg, no murmur, positive posterior tibial pulse bilateral, no edema, capillary refill less than 2 seconds Lungs: CTA bilateral, no rhonchi, no rales , no accessory muscle use Abdominal: soft, nontender to palpation, no guarding, no appreciable organomegaly, normal bowel sounds Ext: no gross muscle atrophy, muscle strength 5 out of 5 in all 4 extremities grossly, no contractures, Neuro: CN II-XI grossly intact, light touch intact all 4 extremities, finger to nose within normal limits, Psych: Alert, oriented, appropriate affect Results CBC & Chem 7: 11/26/18 07:58 11/25/18 16:41 Assessment and Plan Plan: Polysubstance abuse -Advised the patient on importance of cessation Hyperlipidemia -Low risk due to age -Patient will require outpatient follow-up -We'll hold off on any medications for now Anxiety, suicidal ideation -As per psychiatry Thank you for allowing us to participate in the care of this patient. We will follow peripherally. Do not hesitate to contact us with questions. Someone can be reached from the [facility] hospitalist group at all hours of the day at [phone].
[2018-11-28] MEDS: ATORVASTATIN 10 MG TAB PO SCH (21:26)
[2018-11-28] MEDS: diphenhydrAMINE 50 MG CAP PO SCH (21:26)
[2018-11-29 06:27] VITALS: TEMP 97.5
[2018-11-29] MEDS: OLANZapine 2.5 MG TAB PO SCH (08:29)
[2018-11-29] MEDS: lamoTRIgine 25 MG TAB PO SCH (08:29)
[2018-11-29] MEDS: clonazePAM 0.5 MG TAB PO SCH ×2 (08:29→21:00)
[2018-11-29] MEDS: FENOFIBRATE 160 MG TAB PO SCH (08:29)
[2018-11-29] MEDS: NICOTINE 14MG/24HR PATCH TRANSDERM SCH (08:29)
[2018-11-29] MEDS: METRONIDAZOLE 0.75% TOPICAL SCH ×2 (10:14→21:02)
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
[2018-11-29] MEDS ORDERED: BENZOCAINE/MENTHOL LOZENG 1 EACH LOZENGE MUCOUS MEM PRN (18:34)
[2018-11-29] MEDS: ATORVASTATIN 10 MG TAB PO SCH (21:00)
[2018-11-29] MEDS: lamoTRIgine 100 MG TAB PO SCH (21:01)
[2018-11-29] MEDS: diphenhydrAMINE 50 MG CAP PO SCH (21:01)
[2018-11-29] MEDS: OSELTAMIVIR 75 MG CAP PO SCH (21:01)
[2018-11-30 07:09] VITALS: BP 104/61; PULSE 58; RESP 16
[2018-11-30] MEDS: NICOTINE 14MG/24HR PATCH TRANSDERM SCH (08:14)
[2018-11-30] MEDS: lamoTRIgine 100 MG TAB PO SCH (08:14)
[2018-11-30] MEDS: FENOFIBRATE 160 MG TAB PO SCH (08:14)
[2018-11-30] MEDS: OLANZapine 2.5 MG TAB PO SCH (08:15)
[2018-11-30] MEDS: OSELTAMIVIR 75 MG CAP PO SCH (08:15)
[2018-11-30] MEDS: METRONIDAZOLE 0.75% TOPICAL SCH (08:15)
[2018-11-30] MEDS: clonazePAM 0.5 MG TAB PO SCH (08:20)
--- NOTE | 2018-11-30 10:52 | P.DS ---
Providers Date of admission: 11/25/18 17:32 Expected date of discharge: 11/30/18 Attending physician: Rubin Solis DO Consults: 11/25/18 17:41 Consult Physician Routine Consulting Provider: David Estrella Consult Reason/Comments: H and P, eval and tx, r/o metabolic disorder Do you want consulting provider notified?: Yes Primary care physician: Nancy Schofield MD - Discharge Diagnosis(es) (1) OCD (obsessive compulsive disorder) Current Visit: Yes Status: Acute Priority: Low (2) Post traumatic stress disorder (PTSD) Current Visit: Yes Status: Acute Priority: Low (3) Depression Current Visit: No Status: Acute Priority: Low Patient Condition at Discharge: Good Plan - Discharge Summary Discharge Rx Participant: Yes New Discharge Prescriptions: New lamoTRIgine [LaMICtal] 100 mg PO BID 30 Days #60 tab Atorvastatin [Lipitor] 10 mg PO HS 30 Days #30 tab fluvoxaMINE [Luvox] 100 mg PO HS 30 Days #60 tab Oseltamivir [Tamiflu] 75 mg PO Q12HR 2 Days #4 cap Acetaminophen Tab [Tylenol] 650 mg PO Q4HR PRN tab PRN Reason: Mild Pain/Discomfort Continue Fenofibrate Nanocrystallized [Tricor] 145 mg PO DAILY 30 Days #30 tablet Discontinued lamoTRIgine [LaMICtal] 25 mg PO DAILY lamoTRIgine [LaMICtal] 50 mg PO HS OLANZapine [ZyPREXA] 7.5 mg PO HS ALPRAZolam [Xanax] 1 mg PO TID FLUoxetine HCL 20 mg PO DAILY Dextroamphetamine/Amphetamine [Adderall Xr] 20 mg PO BID FLUoxetine HCL 10 mg PO HS Discharge Medication List Acetaminophen Tab [Tylenol] 650 mg PO Q4HR PRN tab 11/30/18 [Rx] Atorvastatin [Lipitor] 10 mg PO HS 30 Days #30 tab 11/30/18 [Rx] Fenofibrate Nanocrystallized [Tricor] 145 mg PO DAILY 30 Days #30 tablet 11/30/18 [Rx] Oseltamivir [Tamiflu] 75 mg PO Q12HR 2 Days #4 cap 11/30/18 [Rx] fluvoxaMINE [Luvox] 100 mg PO HS 30 Days #60 tab 11/30/18 [Rx] lamoTRIgine [LaMICtal] 100 mg PO BID 30 Days #60 tab 03/27/19 [Rx] Follow up Appointment(s)/Referral(s): [facility] [Outside] - 12/07/18 9:00 am (Vivian 12/07 @ 09:00 Dr. Stevenson 12/28 @ 14:40 ) Nancy Schofield MD [Primary Care Provider] - 1-2 days Discharge Disposition: HOME SELF-CARE
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
== END 2018-11-30 11:52 | disposition home or self-care (01) | DRG 882 ==
LOC: EDSTATUS 16:00 → EC 16:00 → 3MHU 17:32
PROVIDERS: ADMIT Psychiatry & Neurology Psychiatry; ATTEND Psychiatry & Neurology Psychiatry
DX: F42.9 Obsessive-compulsive disorder, unspecified (principal); R45.851 Suicidal ideations; K50.90 Crohn's disease, unspecified, without complications; F43.10 Post-traumatic stress disorder, unspecified; F90.9 Attention-deficit hyperactivity disorder, unspecified type; F31.9 Bipolar disorder, unspecified; F19.10 Other psychoactive substance abuse, uncomplicated; E78.5 Hyperlipidemia, unspecified; F81.9 Developmental disorder of scholastic skills, unspecified; K21.9 Gastro-esophageal reflux disease without esophagitis; L71.9 Rosacea, unspecified; F17.210 Nicotine dependence, cigarettes, uncomplicated; Z71.6 Tobacco abuse counseling; Z79.899 Other long term (current) drug therapy; Z88.8 Allergy status to other drugs, medicaments and biological substances; Z87.442 Personal history of urinary calculi; Z87.448 Personal history of other diseases of urinary system; Z87.19 Personal history of other diseases of the digestive system; Z81.1 Family history of alcohol abuse and dependence; Z81.8 Family history of other mental and behavioral disorders
CPT/HCPCS: 36415; 80048; 80061; 80076; 80306; 81003; 82140; 83036; 84443; 85025; 85027; 99285

== ENCOUNTER → 2019-02-11 | Outpatient (CLI) | payer OTHER ==
[2019-02-11 09:55] LABS: Basophils % (A) 0 %; Eosinophils # (A) 0.2 k/uL (0-0.7); Eosinophils % (A) 2 %; HCT 46.2 % (39.0-53.0); HGB 15.3 gm/dL (13.0-17.5); Lymphocytes # (A) 2.9 k/uL (1.0-4.8); Lymphocytes % (A) 33 %; MCH 30.5 pg (25.0-35.0); MCHC 33.1 g/dL (31.0-37.0); MCV 92.2 fL (80.0-100.0); Mean Platelet Volume 6.5; Monocytes # (A) 0.4 k/uL (0-1.0); Monocytes % (A) 4 %; Neutrophils # (A) 5.3 k/uL (1.3-7.7); Neutrophils % (A) 59 %; Platelet Count 265 k/uL (150-450); RBC 5.01 m/uL (4.30-5.90); RDW 12.9 % (11.5-15.5)
[2019-02-11 17:04] LABS: Albumin 4.9 g/dL (3.80-4.90); Albumin/Globulin Ratio 2.72 (1.60-3.17); Anion Gap 7.7 mmol/L (4.00-12.00); Carbon Dioxide 27.3 mmol/L (21.6-31.8); Globulin 1.8 g/dL (1.6-3.3); LDL Cholesterol,Calculated 130.8 mg/dL (0.0-131.0); Potassium 3.9 mmol/L (3.5-5.5); Total Bilirubin 0.7 mg/dL (0.3-1.2); Total Protein 6.7 g/dL (6.2-8.2); VLDL Calculation 45.2 mg/dL (5.00-40.00)
[2019-02-11 20:29] LABS: Hemoglobin A1C 5.5 % (4.0-6.0)
== END | disposition home or self-care (01) ==
LOC: LABWHC1 09:28
PROVIDERS: ATTEND Family Medicine
DX: E78.5 Hyperlipidemia, unspecified (principal); R79.89 Other specified abnormal findings of blood chemistry; K50.90 Crohn's disease, unspecified, without complications; Z51.81 Encounter for therapeutic drug level monitoring
CPT/HCPCS: 36415; 80053; 80061; 82140; 82607; 83036; 85025

== ENCOUNTER → 2019-06-09 | Outpatient (CLI) | payer OTHER ==
--- NOTE | 2019-06-12 09:38 | CT ---
EXAMINATION TYPE: CT abdomen pelvis wo con DATE OF EXAM: 06/09/2019 HISTORY: Renal stone protocol, gross hematuria. CT DLP: 519 mGycm. Automated Exposure Control for Dose Reduction was Utilized. TECHNIQUE: CT scan of the abdomen and pelvis is performed without oral or IV contrast. COMPARISON: CT abdomen and pelvis May 06, 2015 FINDINGS: Within the limitations of a non-contrast study, the following observations are made. LUNG BASES: Respiratory motion artifact degradation. Lung bases grossly clear. LIVER/GB: No significant abnormality is appreciated. PANCREAS: No significant abnormality is seen. SPLEEN: No significant abnormality is seen. ADRENALS: No significant abnormality is seen. KIDNEYS: No right-sided nephrolithiasis or hydronephrosis. There are 2 left-sided renal calculi measu ring 2 mm in size axial image 50 and 52 respectively mid to lower pole level. No left-sided hydroneph rosis. No intraluminal calculi in bladder. BOWEL: Lack of enteric contrast and patient having little intra-abdominal fat makes evaluation of the bowel suboptimal. No obvious abnormality. GENITAL ORGANS: No gross abnormality seen. LYMPH NODES: No greater than 1cm abdominal or pelvic lymph nodes are appreciated. OSSEOUS STRUCTURES: No significant abnormality is seen. OTHER: No significant additional abnormality is seen. IMPRESSION: There are 2 -- 2 mm nonobstructing left renal calculi identified on current study.
== END | disposition home or self-care (01) ==
LOC: RADCTMAIN 08:14
PROVIDERS: ATTEND Internal Medicine
DX: N20.0 Calculus of kidney (principal)
CPT/HCPCS: 74176

== ENCOUNTER → 2019-11-04 | Outpatient (CLI) | payer OTHER ==
[2019-11-04 09:39] LABS: Basophils # (A) 0.1 k/uL (0-0.2); Basophils % (A) 0 %; Eosinophils # (A) 0.4 k/uL (0-0.7); Eosinophils % (A) 3 %; HCT 46.2 % (39.0-53.0); Lymphocytes # (A) 3.3 k/uL (1.0-4.8); Lymphocytes % (A) 24 %; MCHC 32.4 g/dL (31.0-37.0); MCV 95.6 fL (80.0-100.0); Mean Platelet Volume 7.2; Monocytes # (A) 0.7 k/uL (0-1.0); Monocytes % (A) 5 %; Neutrophils # (A) 9.1 k/uL (1.3-7.7); Neutrophils % (A) 66 %; Platelet Count 271 k/uL (150-450); RBC 4.83 m/uL (4.30-5.90); RDW 14.1 % (11.5-15.5); WBC 13.8 k/uL (3.8-10.6)
[2019-11-04 09:49] LABS: Appearance,Urine Clear (Clear); Bilirubin,Urine Negative (Negative); Blood,Urine Negative (Negative); Color,Urine Light Yellow; Glucose,Urine (UA) Negative (Negative); Ketones,Urine Negative (Negative); Leukocyte Esterase,Urine Negative (Negative); Nitrite,Urine Negative (Negative); PH, Urine 6.5 (5.0-8.0); Protein,Urine Negative (Negative); Specific Gravity,Urine 1.009 (1.001-1.035); Urobilinogen,Urine <2.0 mg/dL (<2.0)
[2019-11-04 15:56] LABS: Albumin/Globulin Ratio 2.78 (1.60-3.17); Anion Gap 6.7 mmol/L (4.00-12.00); BUN/Creat Ratio 18.75 Ratio (12.00-20.00); Calcium 10.2 mg/dL (8.7-10.3); Carbon Dioxide 28.3 mmol/L (21.6-31.8); Globulin 1.8 g/dL (1.6-3.3); Total Bilirubin 0.3 mg/dL (0.3-1.2); Total Protein 6.8 g/dL (6.2-8.2)
[2019-11-04 17:13] LABS: Hemoglobin A1C 5.4 % (4.0-6.0)
== END | disposition home or self-care (01) ==
LOC: LABWHC1 08:57
PROVIDERS: ATTEND Family Medicine
DX: Z00.00 Encounter for general adult medical examination without abnormal findings (principal); R73.09 Other abnormal glucose
CPT/HCPCS: 36415; 80053; 81003; 83036; 84443; 85025

== ENCOUNTER → 2020-06-25 | Outpatient (CLI) | payer OTHER | END | disposition home or self-care (01) | LOC: LABWHC1 08:55 | PROVIDERS: ATTEND Family Medicine | DX: Z20.828 Contact with and (suspected) exposure to other viral communicable diseases (principal) | CPT/HCPCS: U0003; C9803 ==

== ENCOUNTER 2020-10-20 09:52 | Inpatient (IN) | payer MEDICAID, OTHER ==
[2020-10-20 11:06] LABS: Amphetamine Screen,Urine Not Detected (NotDetected); Barbiturate Screen,Urine Not Detected (NotDetected); Benzodiazepines Screen,Urine Not Detected (NotDetected); Cocaine Screen,Urine Not Detected (NotDetected); Methadone Screen, Urine Not Detected (NotDetected); Opiate Screen,Urine Not Detected (NotDetected); Oxycodone Screen, Urine Not Detected (NotDetected); Phencyclidine Screen,Urine Not Detected (NotDetected); Tricyclic Antidepressant,Urine Not Detected (NotDetected); Urn Cannabinoid Scrn Detected (NotDetected)
--- NOTE | 2020-10-20 12:29 | ED ---
Psych HPI - General Chief Complaint: Psychiatric Symptoms Stated Complaint: Mental health Time Seen by Provider: 10/20/20 10:00 Source: patient, family, RN notes reviewed Mode of arrival: ambulatory - History of Present Illness Initial Comments: this is a 30-year-old male with a history of ADHD and schizophrenia and bipolar disorder who is brought in for evaluation due to demonstrating flight of ideas confusion hallucinating. Per his mother he seems be demonstrate similar symptoms when he had schizophrenia in the past. He's not been taking his medications recently. No suicidal thoughts or ideation MD Complaint: other - Related Data Home Medications Medication Instructions Recorded Confirmed clonazePAM [KlonoPIN] 0.5 mg PO BID PRN 10/20/20 10/20/20 clonazePAM [KlonoPIN] 0.5 mg PO HS 10/20/20 10/20/20 fluvoxaMINE MALEATE [Luvox] 100 mg PO HS 10/20/20 10/20/20 fluvoxaMINE [Luvox] 100 mg PO DAILY 10/20/20 10/20/20 lamoTRIgine [LaMICtal] 50 mg PO DAILY 10/20/20 10/20/20 lamoTRIgine [LaMICtal] 100 mg PO HS 10/20/20 10/20/20 Previous Rx's Medication Instructions Recorded Atorvastatin [Lipitor] 10 mg PO HS 30 Days #30 tab 11/30/18 Allergies Allergy/AdvReac Type Severity Reaction Status Date / Time aripiprazole [From Abilify] Allergy Unknown Verified 10/20/20 10:40 citalopram [From Celexa] Allergy Unknown Verified 10/20/20 10:40 divalproex sodium Allergy Unknown Verified 10/20/20 10:40 [From Depakote] paroxetine [From Paxil] Allergy Unknown Verified 10/20/20 10:40 sertraline [From Zoloft] Allergy Unknown Verified 10/20/20 10:40 temazepam [From Restoril] Allergy Unknown Verified 10/20/20 10:40 phenobarbital AdvReac Severe Rapid Verified 10/20/20 10:40 Heart Rate zolpidem tartrate AdvReac Unknown Altered Verified 10/20/20 10:40 [From Ambien] Mental Status estropipate [From Ogen 2.5] AdvReac Twitching Verified 10/20/20 10:40 of Legs haloperidol [From Haldol] AdvReac Agitation Verified 10/20/20 10:40 methylprednisolone AdvReac Altered Verified 10/20/20 10:40 [From Solu-Medrol] Mental Status vaylar Allergy Unknown Uncoded 10/20/20 10:03 Review of Systems ROS Statement: Those systems with pertinent positive or pertinent negative responses have been documented in the HPI. ROS Other: All systems not noted in ROS Statement are negative. Past Medical History Past Medical History: GERD/Reflux, GI Bleed, Renal Disease Additional Past Medical History / Comment(s): Gastritis, kidney stones, chrons, possible metabolic disorder History of Any Multi-Drug Resistant Organisms: None Reported Past Surgical History: Tonsillectomy Additional Past Surgical History / Comment(s): wisdom teeth removed. Past Anesthesia/Blood Transfusion Reactions: No Reported Reaction Additional Past Anesthesia/Blood Transfusion Reaction / Comment(s): NEVER HAD BLOOD TRANSFUSION Past Psychological History: ADD/ADHD, Anxiety, Bipolar, Depression, PTSD Smoking Status: Current every day smoker Past Alcohol Use History: None Reported Past Drug Use History: Marijuana - Past Family History Sister(s) Additional Family Medical History / Comment(s): He has one sister that is healthy. He also has a 4-year-old daughter that is healthy. Father Family Medical History: GERD/Reflux Additional Family Medical History / Comment(s): Father is alive at age 60 recovered alcoholic with no major medical problems. Mother Additional Family Medical History / Comment(s): Mother is alive at age 58 recovered alcoholic and chronic back problems. General Exam - General Exam Comments Initial Comments: this is a well-developed well-nourished awake alert male who is demonstrating flight of ideas Limitations: no limitations General appearance: alert Head exam: Present: atraumatic, normocephalic, normal inspection Eye exam: Present: normal appearance, PERRL, EOMI. Absent: scleral icterus, conjunctival injection, periorbital swelling ENT exam: Present: normal exam, mucous membranes moist Neck exam: Present: normal inspection. Absent: tenderness, meningismus, lymphadenopathy Respiratory exam: Present: normal lung sounds bilaterally. Absent: respiratory distress, wheezes, rales, rhonchi, stridor Cardiovascular Exam: Present: regular rate, normal rhythm, normal heart sounds. Absent: systolic murmur, diastolic murmur, rubs, gallop, clicks GI/Abdominal exam: Present: soft, normal bowel sounds. Absent: distended, tenderness, guarding, rebound, rigid Extremities exam: Present: normal inspection, full ROM, normal capillary refill. Absent: tenderness, pedal edema, joint swelling, calf tenderness Back exam: Present: normal inspection Neurological exam: Present: alert, oriented X3, CN II-XII intact Psychiatric exam: Present: anxious, manic Skin exam: Present: warm, dry, intact, normal color. Absent: rash Course Vital Signs 10/20/20 10/20/20 09:57 11:06 Temperature 98.4 F Pulse Rate 85 Respiratory 16 18 Rate Blood Pressure 105/67 O2 Sat by Pulse 97 Oximetry Medical Decision Making - Medical Decision Making The patient was evaluated by the EPS service and will be admitted for inpatient treatment. - Lab Data Lab Results 10/20/20 Range/Units 10:35 Urine Opiates Screen Not Detected (NotDetected) Ur Oxycodone Screen Not Detected (NotDetected) Urine Methadone Screen Not Detected (NotDetected) Ur Propoxyphene Screen Not Detected (NotDetected) Ur Barbiturates Screen Not Detected (NotDetected) U Tricyclic Antidepress Not Detected (NotDetected) Ur Phencyclidine Scrn Not Detected (NotDetected) Ur Amphetamines Screen Not Detected (NotDetected) U Methamphetamines Scrn Not Detected (NotDetected) U Benzodiazepines Scrn Not Detected (NotDetected) Urine Cocaine Screen Not Detected (NotDetected) U Marijuana (THC) Screen Detected H (NotDetected) Disposition Clinical Impression: Acute psychosis Disposition: TRANSFER TO PSYCH HOSP/UNIT Condition: Fair Referrals: Ayden Lu [Primary Care Provider] - 1-2 days
[2020-10-20 14:19] LABS: Appearance,Urine Clear (Clear); Bilirubin,Urine Negative (Negative); Blood,Urine Negative (Negative); Color,Urine Yellow; Glucose,Urine (UA) Negative (Negative); Ketones,Urine Negative (Negative); Leukocyte Esterase,Urine Negative (Negative); Nitrite,Urine Negative (Negative); PH, Urine 6.5 (5.0-8.0); Protein,Urine Negative (Negative); Specific Gravity,Urine 1.014 (1.001-1.035); Urobilinogen,Urine <2.0 mg/dL (<2.0)
[2020-10-20 14:20] LABS: HGB 13.7 gm/dL (13.0-17.5); MCH 32.2 pg (25.0-35.0); MCHC 34.2 g/dL (31.0-37.0); MCV 93.9 fL (80.0-100.0); Mean Platelet Volume 7.4; Platelet Count 213 k/uL (150-450); RBC 4.26 m/uL (4.30-5.90); RDW 14.1 % (11.5-15.5); WBC 7.1 k/uL (3.8-10.6)
[2020-10-20 14:29] LABS: ALT 20 U/L (4-49); AST 24 U/L (17-59); African American GFR (CKD) >90 (>60 ml/min/1.73 sqM); Albumin 4.2 g/dL (3.5-5.0); Alkaline Phosphatase 54 U/L (38-126); Anion Gap 7 mmol/L; Blood Urea Nitrogen 16 mg/dL (9-20); Calcium 9.4 mg/dL (8.4-10.2); Carbon Dioxide 28 mmol/L (22-30); Chloride 103 mmol/L (98-107); Glucose 139 mg/dL (74-99); Non-African American GFR(CKD) >90 (>60 ml/min/1.73 sqM); Potassium 3.7 mmol/L (3.5-5.1); Sodium 138 mmol/L (137-145); Total Bilirubin 0.9 mg/dL (0.2-1.3); Total Protein 6.5 g/dL (6.3-8.2)
[2020-10-20] MEDS ORDERED: MAG HYDROX/AL HYDROX/SIMETH 30 ML CUP PO PRN (17:03)
[2020-10-20] MEDS ORDERED: ACETAMINOPHEN TAB 325 MG TAB PO PRN (17:03)
--- NOTE | 2020-10-21 06:39 | P.CONS ---
History of Present Illness - Reason for Consult Consult date: 10/21/20 - History of Present Illness Patient is a 30-year-old male with a PMH of ADHD, bipolar disorder, and schizophrenia who was brought into the emergency room due to flight of ideas and disorganized thought process. The patient was admitted to the mental health unit where he was seen and evaluated. Patient noted that he is here since he was hearing voices and was acting strangely. He denied active complaints. He denied chest discomfort, shortness of breath, fever, chills, nausea, vomiting, abdominal pain, diarrhea. Laboratory evaluation was reviewed and was working for a TSH of 0.288. Review of Systems Pertinent positives and negatives as discussed in HPI, a complete review of systems was performed and all other systems are negative. Past Medical History Past Medical History: GERD/Reflux, GI Bleed, Renal Disease Additional Past Medical History / Comment(s): Gastritis, kidney stones, chrons, possible metabolic disorder History of Any Multi-Drug Resistant Organisms: None Reported Past Surgical History: Tonsillectomy Additional Past Surgical History / Comment(s): wisdom teeth removed. Past Anesthesia/Blood Transfusion Reactions: No Reported Reaction Additional Past Anesthesia/Blood Transfusion Reaction / Comm: NEVER HAD BLOOD TRANSFUSION Smoking Status: Current every day smoker - Past Family History Sister(s) Additional Family Medical History / Comment(s): He has one sister that is healthy. He also has a 4-year-old daughter that is healthy. Father Family Medical History: GERD/Reflux Additional Family Medical History / Comment(s): Father is alive at age 60 recovered alcoholic with no major medical problems. Mother Additional Family Medical History / Comment(s): Mother is alive at age 58 recovered alcoholic and chronic back problems. Medications and Allergies Home Medications Medication Instructions Recorded Confirmed Type Atorvastatin [Lipitor] 10 mg PO HS 30 Days #30 tab 11/30/18 10/20/20 Rx clonazePAM [KlonoPIN] 0.5 mg PO BID PRN 10/20/20 10/20/20 History clonazePAM [KlonoPIN] 0.5 mg PO HS 10/20/20 10/20/20 History fluvoxaMINE MALEATE [Luvox] 100 mg PO HS 10/20/20 10/20/20 History fluvoxaMINE [Luvox] 100 mg PO DAILY 10/20/20 10/20/20 History lamoTRIgine [LaMICtal] 50 mg PO DAILY 10/20/20 10/20/20 History lamoTRIgine [LaMICtal] 100 mg PO HS 10/20/20 10/20/20 History Allergies Allergy/AdvReac Type Severity Reaction Status Date / Time aripiprazole [From Abilify] Allergy Unknown Verified 10/20/20 18:10 citalopram [From Celexa] Allergy Unknown Verified 10/20/20 18:10 divalproex sodium Allergy Unknown Verified 10/20/20 18:10 [From Depakote] paroxetine [From Paxil] Allergy Unknown Verified 10/20/20 18:10 sertraline [From Zoloft] Allergy Unknown Verified 10/20/20 18:10 temazepam [From Restoril] Allergy Unknown Verified 10/20/20 18:10 phenobarbital AdvReac Severe Rapid Verified 10/20/20 18:10 Heart Rate zolpidem tartrate AdvReac Unknown Altered Verified 10/20/20 18:10 [From Ambien] Mental Status estropipate [From Ogen 2.5] AdvReac Twitching Verified 10/20/20 18:10 of Legs haloperidol [From Haldol] AdvReac Agitation Verified 10/20/20 18:10 methylprednisolone AdvReac Altered Verified 10/20/20 18:10 [From Solu-Medrol] Mental Status vaylar Allergy Unknown Uncoded 10/20/20 18:10 Physical Exam Vitals: Vital Signs Temp Pulse Pulse Resp BP BP Pulse Ox 10/20/20 17:46 97.9 F 97 14 92/50 10/20/20 13:00 18 10/20/20 12:00 17 10/20/20 11:06 18 10/20/20 09:57 98.4 F 85 16 105/67 97 Intake and Output 10/20/20 10/20/20 10/21/20 14:59 22:59 06:59 Other: Weight 63.503 kg 63.5 kg General: non toxic, no distress, appears at stated age, normal weight Derm: no unusual rashes/lesions no unusual ecchymoses, warm, dry Head: atraumatic, normocephalic, symmetric Eyes: EOMI, no lid lag, anicteric sclera, pupils equal round reactive to light ENT: Nose and ears atraumatic, no thrush, no pharyngeal erythema Neck: No thyromegaly, no cervical lymphadenopathy, trachea midline, supple Mouth: no lip lesion, mucus membranes moist Cardiovascular: S1S2 reg, no murmur, positive posterior tibial pulse bilateral, no edema, capillary refill less than 2 seconds Lungs: CTA bilateral, no rhonchi, no rales , no accessory muscle use Abdominal: soft, nontender to palpation, no guarding, no appreciable organomegaly, normal bowel sounds Ext: no gross muscle atrophy, muscle strength 5 out of 5 in all 4 extremities grossly, no contractures, Neuro: CN II-XI grossly intact, light touch intact all 4 extremities, finger to nose within normal limits, Psych: Alert, oriented, flat affect Results CBC & Chem 7: 10/21/20 06:49 10/21/20 06:49 Labs: Abnormal Lab Results - Last 24 Hours (Table) 10/20/20 10/20/20 10/20/20 Range/Units 10:35 14:15 14:15 RBC 4.26 L (4.30-5.90) m/uL Glucose 139 H (74-99) mg/dL U Marijuana (THC) Screen Detected H (NotDetected) Assessment and Plan Plan: Low TSH -Obtain T4 and T3 levels Psychosis -As per psychiatry Marijuana abuse -Advised on the importance of cessation Thank you for allowing us to participate in the care of this patient. We will follow peripherally. Do not hesitate to contact us with questions. Someone can be reached from the [facility] hospitalist group at all hours of the day at [phone].
[2020-10-21 07:17] LABS: Basophils % (A) 1 %; Eosinophils # (A) 0.3 k/uL (0-0.7); Eosinophils % (A) 4 %; HCT 45.6 % (39.0-53.0); HGB 14.7 gm/dL (13.0-17.5); Lymphocytes % (A) 47 %; MCH 30.9 pg (25.0-35.0); MCHC 32.2 g/dL (31.0-37.0); MCV 95.8 fL (80.0-100.0); Mean Platelet Volume 7.1; Monocytes # (A) 0.4 k/uL (0-1.0); Monocytes % (A) 7 %; Neutrophils # (A) 2.6 k/uL (1.3-7.7); Neutrophils % (A) 40 %; Platelet Count 232 k/uL (150-450); RBC 4.76 m/uL (4.30-5.90); WBC 6.5 k/uL (3.8-10.6)
[2020-10-21 07:29] LABS: ALT 20 U/L (4-49); AST 23 U/L (17-59); African American GFR (CKD) >90 (>60 ml/min/1.73 sqM); Albumin 4.4 g/dL (3.5-5.0); Alkaline Phosphatase 63 U/L (38-126); Anion Gap 7 mmol/L; Blood Urea Nitrogen 20 mg/dL (9-20); Calcium 9.8 mg/dL (8.4-10.2); Carbon Dioxide 28 mmol/L (22-30); Chloride 102 mmol/L (98-107); Cholesterol 159 mg/dL (<200); Glucose 92 mg/dL (74-99); HDL Cholesterol 53 mg/dL (40-60); LDL Cholesterol,Calculated 81 mg/dL (0-99); Non-African American GFR(CKD) >90 (>60 ml/min/1.73 sqM); Potassium 4.3 mmol/L (3.5-5.1); Sodium 137 mmol/L (137-145); Total Bilirubin 0.4 mg/dL (0.2-1.3); Total Protein 6.7 g/dL (6.3-8.2); Triglycerides 124 mg/dL (<150)
[2020-10-21] MEDS: NICOTINE 14MG/24HR PATCH TRANSDERM SCH (08:13)
[2020-10-21] MEDS ORDERED: ZIPRASIDONE 20 MG VIAL IM STA (08:43)
[2020-10-21] MEDS ORDERED: ZIPRASIDONE 20 MG VIAL IM ONE (08:46)
[2020-10-21] MEDS ORDERED: WATER FOR INJECTION, STERILE 10 ML IV ONE ×2 (08:46→21:25)
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
[2020-10-21 14:12] LABS: Hemoglobin A1C 4.9 % (4.0-6.0)
[2020-10-21] MEDS: lamoTRIgine 100 MG TAB PO SCH (21:15)
[2020-10-21] MEDS: LITHIUM CARBONATE 150 MG CAP PO SCH (21:15)
[2020-10-21] MEDS: ZIPRASIDONE 20 MG VIAL IM PRN (21:30)
[2020-10-22] MEDS: LITHIUM CARBONATE 150 MG CAP PO SCH ×2 (08:20→21:05)
[2020-10-22] MEDS: NICOTINE 14MG/24HR PATCH TRANSDERM SCH (08:20)
--- NOTE | 2020-10-22 09:45 | P.PN ---
Progress Note - Text Progress Note Date: 10/22/20 Interval History: Patient was seen in his room and was directable and agreeable to speak with functional tester typewriters in the office. Patient reports that he is feeling much better today. He is much more clear and coherent today than he was yesterday. The patient is stating that he has these episodes of psychosis caused him to be paranoid and "get out of my mind." He is unable to identify particular triggers and one presented with the idea that marijuana may be a contributor, the patient reports that only when he takes "too much" that it becomes a problem. He otherwise states it is beneficial for him. He is currently not reporting any suicidal or homicidal ideation, intention, and/or plan. He is not reporting any auditory or visual hallucinations. Is denying any paranoia or delusions. His depression with his medications and is not reporting any significant side effects at this time. The patient does admit to OCD symptoms of intrusive obsessions and rigid compulsions. He states that he things often of handwashing as well as keeping things in parallel lines. He reports that this continues to be present but does not appear to be interrupting his daily functioning. Mental Status Exam: General Appearance: Patient appears to be stated age is alert, directable, and cooperative. Shortcut hair with patches of baldness on the left side of his head. Behavior: Patient is calmly seated without any agitated behavior. Psychomotor activity appears slightly elevated. Eye contact is intermittent. Speech: Patient's speech is fluent and nonpressured. Mood/Affect: Mood is improving mildly, affect is congruent and slightly anxious and nervous. Suicidality/Homicidality: Patient denies any suicidal or homicidal ideation, intention, and/or plan. Perceptions: Patient denies any visual hallucinations and denies any auditory hallucinations Though content/process: There is no evidence of any delusional thought content and thought process is linear and goal-directed. Memory and concentration: AOX3, grossly intact for the purposes of this session Judgment and insight: Improving mildly Assessment Bipolar 1 Disorder Obsessive Compulsive Disorder Attention Deficit Hyperactivity Disorder Plan: -Patient continues to meet criteria for inpatient psychiatric admission for symptom stabilization and safety. Patient has signed adult voluntary form and medication consent and was placed in patient's chart. -Encouraged the patient to contact his mother so that she may also assess how the patient's progress is doing. -Medications: Luvox 100 mg by mouth twice a day for OCD/depression/anxiety Lamictal 100 mg by mouth at bedtime for mood stabilization [place] 450 mg by mouth twice a day for mood stabilization -Geodon PRN for agitation/aggression. -NRT - nicotine patch -SW on board for discharge planning. Encouraged the patient to participate in milieu.
[2020-10-22] MEDS: lamoTRIgine 100 MG TAB PO SCH (21:05)
[2020-10-22] MEDS: ZIPRASIDONE 20 MG VIAL IM PRN (22:14)
[2020-10-23] MEDS: NICOTINE 14MG/24HR PATCH TRANSDERM SCH (08:42)
[2020-10-23] MEDS: LITHIUM CARBONATE 150 MG CAP PO SCH ×2 (08:43→21:07)
[2020-10-23] MEDS ORDERED: ZIPRASIDONE 20 MG VIAL IM ONE (11:04)
[2020-10-23] MEDS ORDERED: WATER FOR INJECTION, STERILE 10 ML IV ONE (11:04)
[2020-10-23] MEDS: ZIPRASIDONE 20 MG VIAL IM PRN (11:15)
--- NOTE | 2020-10-23 11:56 | P.PN ---
Progress Note - Text Progress Note Date: 10/23/20 Interval History: Patient was seen in his room and was directable and agreeable to speak with internal communications writer in the office. Patient states that he has been having "weird and upsetting thoughts." He states that he has been about his grandparents. He does not further elaborate but states that these thoughts are upsetting to him. The patient then goes on a tangent talking about how he has had multiple past lives and then states that he is a female at one point but is not currently. The patient appears to be grossly disorganized today. He is not reporting any suicidal or homicidal ideation, intention, and/or plan. He is denying any auditory or visual hallucinations. He is not reporting any paranoia but does express some delusional thought content saying that he is having somewhere thoughts about others and past lives that he may have experienced. Mental Status Exam: General Appearance: Patient appears to be stated age is alert, directable, and cooperative. Shortcut hair with patches of baldness on the left side of his head. Behavior: Psychomotor activity appears elevated. Eye contact is intermittent. Speech: Patient's speech is fluent and nonpressured. Mood/Affect: Mood is improving mildly, affect is congruent and slightly anxious and nervous. Suicidality/Homicidality: Patient denies any suicidal or homicidal ideation, intention, and/or plan. Perceptions: Patient denies any visual hallucinations and denies any auditory hallucinations Though content/process: The patient appears to have ego dystonic delusional thoughts. Memory and concentration: AOX3, grossly intact for the purposes of this session Judgment and insight: Improving mildly Assessment Bipolar 1 Disorder Obsessive Compulsive Disorder Attention Deficit Hyperactivity Disorder Plan: -Patient continues to meet criteria for inpatient psychiatric admission for symptom stabilization and safety. Patient has signed adult voluntary form and medication consent and was placed in patient's chart. -When the patient was evaluated yesterday, the patient was presenting better and not endorsing any significant delusional thought processes. He did receive IM Geodon 24 hours prior to that presentation. The patient is open to starting a trial of oral Geodon. -Medications: Luvox 100 mg by mouth twice a day for OCD/depression/anxiety Lamictal 100 mg by mouth at bedtime for mood stabilization [place] 450 mg by mouth twice a day for mood stabilization Start Geodon 20 mg by mouth twice a day for psychosis/mood stabilization. -Geodon PRN for agitation/aggression. -NRT - nicotine patch -SW on board for discharge planning. Encouraged the patient to participate in milieu.
[2020-10-23] MEDS: hydrOXYzine pamoate 25 MG CAP PO PRN (17:15)
[2020-10-23] MEDS: ZIPRASIDONE 20 MG CAP PO SCH (21:07)
[2020-10-23] MEDS: lamoTRIgine 100 MG TAB PO SCH (21:07)
[2020-10-23] MEDS ORDERED: LORazepam 2 MG/ML INJ IM STA (21:43)
[2020-10-23] MEDS ORDERED: HALOPERIDOL LACTATE 5 MG/ML 1 ML VIAL IM STA (21:43)
[2020-10-23] MEDS ORDERED: diphenhydrAMINE 50 MG/ML 1 ML VIAL IM STA (21:43)
[2020-10-24] MEDS: NICOTINE 14MG/24HR PATCH TRANSDERM SCH (08:48)
[2020-10-24] MEDS: ZIPRASIDONE 20 MG CAP PO SCH ×2 (08:49→21:06)
[2020-10-24] MEDS: LITHIUM CARBONATE 150 MG CAP PO SCH ×2 (08:49→21:06)
--- NOTE | 2020-10-24 11:49 | P.PN ---
Progress Note - Text Progress Note Date: 10/24/20 Interval History: Patient was seen in his room and was directable and agreeable to speak with wr iter in the office. Patient claims that he has been mainly isolative on the unit staying in his room. He states that yesterday she was feeling "agitated" and feeling very anxious today. He states that he has not been restarted back on his Klonopin which she has been taking by his outpatient psychiatrist. He claims that he is continuing to feel anxiety throughout the day. He states that his thoughts are "clear" on the current medication and states that he likes being on the lithium. She was requesting a Geodon injection yesterday due to agitation. He states that he has been speaking with his family over the phone. He claims that he has gone to some groups while on the unit however did not speak much about them. Patient appears to have improvement in his thought process and is more organized today. He is not reporting any suicidal or homicidal ideation, intention, and/or plan. He is denying any auditory or visual hallucinations. He is not reporting any paranoia but does express some delusional thought content. Mental Status Exam: General Appearance: Patient appears to be stated age is alert, directable, and more cooperative. Shortcut hair with patches of baldness on the left side of his head. Behavior: Psychomotor activity appears elevated. Eye contact is intermittent. Speech: Patient's speech is fluent and nonpressured. Mood/Affect: Mood is improving mildly however states that he is anxious, affect is congruent and anxious and nervous. Suicidality/Homicidality: Patient denies any suicidal or homicidal ideation, intention, and/or plan. Perceptions: Patient denies any visual hallucinations and denies any auditory hallucinations Though content/process: Goal oriented, concrete. Fixated on his medications. Memory and concentration: AOX3, grossly intact for the purposes of this session Judgment and insight: Poor, Improving mildly Assessment Bipolar 1 Disorder Obsessive Compulsive Disorder Attention Deficit Hyperactivity Disorder Cannabis use disorder Nicotine dependence Plan: -Patient continues to meet criteria for inpatient psychiatric admission for symptom stabilization and safety. Patient has signed adult voluntary form and medication consent and was placed in patient's chart. -Continue with Luvox 100 mg by mouth twice a day for OCD/depression/anxiety, Lamictal 100 mg by mouth at bedtime for mood stabilization, [place] 450 mg by mouth twice a day for mood stabilization. Will order lithium level Wednesday morning. Continue with Geodon 20 mg by mouth twice a day for psychosis/mood stabilization. Added Klonopin 0.5 mg twice a day for anxiety as he was prescribed this by his outpatient psychiatrist. -Geodon PRN for agitation/aggression. -NRT - nicotine patch -SW on board for discharge planning. Encouraged the patient to participate in milieu. likely d/c in 2-3 days.
[2020-10-24] MEDS: clonazePAM 0.5 MG TAB PO SCH ×2 (13:04→21:06)
[2020-10-24] MEDS: lamoTRIgine 100 MG TAB PO SCH (21:06)
[2020-10-24] MEDS: hydrOXYzine pamoate 25 MG CAP PO PRN (21:25)
[2020-10-24] MEDS ORDERED: WATER FOR INJECTION, STERILE 10 ML IV ONE (22:05)
[2020-10-24] MEDS ORDERED: ZIPRASIDONE 20 MG VIAL IM ONE (22:05)
[2020-10-24] MEDS: ZIPRASIDONE 20 MG VIAL IM PRN (22:09)
[2020-10-25] MEDS: hydrOXYzine pamoate 25 MG CAP PO PRN ×3 (04:12→22:46)
[2020-10-25] MEDS: ZIPRASIDONE 20 MG VIAL IM PRN (05:58)
[2020-10-25] MEDS: NICOTINE 14MG/24HR PATCH TRANSDERM SCH (08:15)
[2020-10-25] MEDS: LITHIUM CARBONATE 150 MG CAP PO SCH ×2 (08:15→20:57)
[2020-10-25] MEDS: clonazePAM 0.5 MG TAB PO SCH ×4 (08:15→20:58)
[2020-10-25] MEDS: ZIPRASIDONE 20 MG CAP PO SCH ×2 (08:15→20:57)
--- NOTE | 2020-10-25 11:02 | P.PN ---
Progress Note - Text Progress Note Date: 10/25/20 Interval History: Patient was seen in his room and was directable and agreeable to speak with wr iter in the office. Patient claims that he is doing better overall today. When asked about anxiety and depression he states that these have been improving since being on the medications. Patient claims that he is been taking the Klonopin which has been helping his anxiety. He continues to be concrete and poverty of content in his speech. He states that he has been speaking with his mother over the phone. He states that his thoughts are "clear" on the current medications. Patient once again received a Geodon IM injection this morning at 6 AM and when asked about 80 states that he was being feeling agitated and pacing the hallways and "couldn't sleep". Patient was requesting the Geodon injection. He claims that he has gone to some groups while on the unit however did not speak much about them. Patient was asking about different medication helpful with sleep and was agreeable to try Benadryl at nighttime. Patient appears to have improvement in his thought process and is more organized today. He is not reporting any suicidal or homicidal ideation, intention, and/or plan. He is denying any auditory or visual hallucinations. He is not reporting any paranoia but does express some delusional thought content. Mental Status Exam: General Appearance: Patient appears to be stated age is alert, directable, and more cooperative. Shortcut hair with patches of baldness on the left side of his head. Behavior: Psychomotor activity appears elevated. Eye contact is improving mildly Speech: Patient's speech is fluent and nonpressured. Mood/Affect: Mood is improving mildly, affect is congruent and nervous. Suicidality/Homicidality: Patient denies any suicidal or homicidal ideation, intention, and/or plan. Perceptions: Patient denies any visual hallucinations and denies any auditory hallucinations Though content/process: Goal oriented, concrete. Fixated on his medications. Memory and concentration: AOX3, grossly intact for the purposes of this session Judgment and insight: Poor, Improving mildly Assessment Bipolar 1 Disorder Obsessive Compulsive Disorder Attention Deficit Hyperactivity Disorder Cannabis use disorder Nicotine dependence Plan: -Patient continues to meet criteria for inpatient psychiatric admission for symptom stabilization and safety. Patient has signed adult voluntary form and medication consent and was placed in patient's chart. -Continue with Luvox 100 mg by mouth twice a day for OCD/depression/anxiety, Lamictal 100 mg by mouth at bedtime for mood stabilization, [place] 450 mg by mouth twice a day for mood stabilization. Will order lithium level Wednesday. Continue with Geodon 20 mg by mouth twice a day for psychosis/mood stabilization, we'll consider increasing this dose over the weekend if needed. Continue with Klonopin 0.5 mg twice a day for anxiety as he was prescribed this by his outpatient psychiatrist. Added Benadryl 25 mg daily at bedtime for insomnia. -Geodon PRN for agitation/aggression. -NRT - nicotine patch -SW on board for discharge planning. Encouraged the patient to participate in milieu. likely d/c early next week.
[2020-10-25] MEDS: diphenhydrAMINE 25 MG CAP PO SCH (20:57)
[2020-10-25] MEDS: lamoTRIgine 100 MG TAB PO SCH (20:57)
[2020-10-26] MEDS: NICOTINE 14MG/24HR PATCH TRANSDERM SCH (08:01)
[2020-10-26] MEDS: LITHIUM CARBONATE 150 MG CAP PO SCH ×2 (08:02→20:50)
[2020-10-26] MEDS: ZIPRASIDONE 40 MG CAP PO SCH (08:02)
[2020-10-26] MEDS: clonazePAM 0.5 MG TAB PO SCH ×3 (08:42→20:50)
--- NOTE | 2020-10-26 10:41 | P.PN ---
Progress Note - Text Progress Note Date: 10/26/20 Interval history: Patient was seen resting bed and was directable and agreeable to speak with specification writer. The patient reports that he is feeling better today. He is not reporting any suicidal or homicidal ideation, intention, and/or plan. The patient is denying any auditory or visual hallucinations. He denies any paranoia or delusions. When asked about any bizarre thoughts he may have been having before, the patient states that he is not experiencing spirits in them at this time. He reports no issues with sleep or appetite. He does state that he does have an elevated anxiety that is more predominant in the morning. He otherwise is not reporting any significant issues. He has been adherent with his medications and is not reporting any significant side effects at this time. Mental status exam: General Appearance: Patient appears to be stated age is alert, directable, and cooperative. Shortcut hair with patches of baldness and left side of his head. Behavior: No agitated behavior. Patient is calm and directable Speech: Patient's speech is fluent and nonpressured. Her low in volume, but otherwise was normal tone. Mood/Affect: Mood is improving mildly, affect is congruent and constricted. Suicidality/Homicidality: Patient denies having any suicidal or homicidal ideation intent or plan. Perceptions: Patient denies any auditory or visual hallucinations. Though content/process: There is no evidence of any delusional thought content and thought process is linear and goal-directed. Memory and concentration: AOX3, grossly intact for the purposes of this session Judgment and insight: improving mildly Assessment/Plan: Continue with current diagnosis. Patient continues to meet criteria for inpatient psychiatric admission for symptom stabilization and safety. Patient will be maintained on current psychotropic medication regimen. Monitor for medication compliance and for any psychotropic medication side effects. Will continue to monitor ongoing response to treatment. Encouraged participation in milieu.
[2020-10-26] MEDS: diphenhydrAMINE 25 MG CAP PO SCH (20:50)
[2020-10-26] MEDS: lamoTRIgine 100 MG TAB PO SCH (20:50)
[2020-10-26] MEDS: ZIPRASIDONE 20 MG CAP PO SCH (20:51)
[2020-10-26] MEDS: hydrOXYzine pamoate 25 MG CAP PO PRN (21:42)
[2020-10-27] MEDS: hydrOXYzine pamoate 25 MG CAP PO PRN ×2 (02:41→22:44)
[2020-10-27] MEDS: ZIPRASIDONE 40 MG CAP PO SCH (07:54)
[2020-10-27] MEDS: NICOTINE 14MG/24HR PATCH TRANSDERM SCH (07:54)
[2020-10-27] MEDS: LITHIUM CARBONATE 150 MG CAP PO SCH (07:54)
[2020-10-27] MEDS: clonazePAM 0.5 MG TAB PO SCH ×3 (07:55→21:26)
--- NOTE | 2020-10-27 10:35 | P.PN ---
Progress Note - Text Progress Note Date: 10/27/20 Interval history: Patient was seen resting bed and was directable and agreeable to speak with mortgage underwriter. The patient reports that he is feeling tired. As per review of the nurses note, the patient is reported to have slept for 1.5 hours. He is otherwise not reporting any suicidal or homicidal ideation, intention, and/or plan. He is not reporting any auditory or visual hallucinations. He is not reporting any paranoia or delusions at this time. He has been in adherent with his medications and is not reporting any significant side effects at this time. Mental status exam: General Appearance: Patient appears to be stated age is alert, directable, and cooperative. Shortcut hair with patches of baldness and left side of his head. Behavior: No agitated behavior. Patient is calm and directable Speech: Patient's speech is fluent and nonpressured. Speech is low in volume, but otherwise was normal tone. Mood/Affect: Mood is improving mildly, affect is congruent and constricted. Suicidality/Homicidality: Patient denies having any suicidal or homicidal ideation intent or plan. Perceptions: Patient denies any auditory or visual hallucinations. Though content/process: There is no evidence of any delusional thought content and thought process is linear and goal-directed. Memory and concentration: AOX3, grossly intact for the purposes of this session Judgment and insight: improving mildly Assessment/Plan: Continue with current diagnosis. Patient continues to meet criteria for inpatient psychiatric admission for symptom stabilization and safety. Patient will be maintained on current psychotropic medication regimen with the exception of increasing his benadryl to 50 mg at bedtime. Monitor for medication compliance and for any psychotropic medication side effects. Will continue to monitor ongoing response to treatment. Encouraged participation in milieu.
[2020-10-27] MEDS ORDERED: SODIUM CHLORIDE 0.65% NASAL SPRAY 44 ML BTL NASAL PRN (12:36)
[2020-10-27] MEDS ORDERED: diphenhydrAMINE 25 MG CAP PO SCH (21:00)
[2020-10-27] MEDS: lamoTRIgine 100 MG TAB PO SCH (21:25)
[2020-10-27] MEDS: LITHIUM CARBONATE ER 450 MG TABLET.ER PO SCH (21:25)
[2020-10-27] MEDS: ZIPRASIDONE 20 MG CAP PO SCH (21:25)
[2020-10-28] MEDS: hydrOXYzine pamoate 25 MG CAP PO PRN (03:38)
[2020-10-28 05:34] VITALS: BP 120/73; PULSE 65; RESP 16; TEMP 96.9
[2020-10-28] MEDS: clonazePAM 0.5 MG TAB PO SCH (07:57)
[2020-10-28] MEDS: LITHIUM CARBONATE ER 450 MG TABLET.ER PO SCH (07:58)
[2020-10-28] MEDS: ZIPRASIDONE 40 MG CAP PO SCH (08:01)
[2020-10-28] MEDS: NICOTINE 14MG/24HR PATCH TRANSDERM SCH (08:01)
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
== END 2020-10-28 11:06 | disposition home or self-care (01) | DRG 885 ==
LOC: EC 09:52 → 3MHU 16:58
PROVIDERS: ADMIT Psychiatry & Neurology Psychiatry; ATTEND Psychiatry & Neurology Psychiatry
DX: F31.2 Bipolar disorder, current episode manic severe with psychotic features (principal); K50.90 Crohn's disease, unspecified, without complications; F12.10 Cannabis abuse, uncomplicated; F17.210 Nicotine dependence, cigarettes, uncomplicated; F20.9 Schizophrenia, unspecified; F41.0 Panic disorder [episodic paroxysmal anxiety]; Z20.822 Contact with and (suspected) exposure to COVID-19; F42.9 Obsessive-compulsive disorder, unspecified; F43.10 Post-traumatic stress disorder, unspecified; F90.9 Attention-deficit hyperactivity disorder, unspecified type; G47.00 Insomnia, unspecified; Z79.899 Other long term (current) drug therapy; Z81.8 Family history of other mental and behavioral disorders; Z86.59 Personal history of other mental and behavioral disorders; Z87.442 Personal history of urinary calculi
CPT/HCPCS: 36415; 80053; 80061; 80178; 80306; 81003; 82075; 83036; 84439; 84443; 84480; 85025; 85027; 87635; 99285

== ENCOUNTER 2021-06-13 17:18 | Inpatient (IN) | payer MEDICAID, OTHER ==
[2021-06-13] MEDS ORDERED: LORazepam 2 MG/ML INJ IM STA (18:33)
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
[2021-06-13] MEDS ORDERED: MAGNESIUM HYDROXIDE 2,400 MG/10 ML CUP PO PRN (22:07)
[2021-06-13] MEDS ORDERED: MAG HYDROX/AL HYDROX/SIMETH 30 ML CUP PO PRN (22:07)
[2021-06-13] MEDS ORDERED: ACETAMINOPHEN TAB 325 MG TAB PO PRN (22:07)
[2021-06-13] MEDS: ZIPRASIDONE 20 MG VIAL IM PRN (22:48)
[2021-06-14] MEDS: ZIPRASIDONE 20 MG VIAL IM PRN (05:49)
[2021-06-14] MEDS: NICOTINE 14MG/24HR PATCH TRANSDERM SCH (08:53)
[2021-06-14] MEDS: clonazePAM 0.5 MG TAB PO SCH ×2 (08:54→12:28)
[2021-06-14] MEDS: lamoTRIgine 100 MG TAB PO SCH ×2 (08:54→20:02)
[2021-06-14 09:17] LABS: Basophils % (A) 1 %; Eosinophils # (A) 0.2 k/uL (0-0.7); Eosinophils % (A) 3 %; HCT 50.6 % (39.0-53.0); HGB 16.9 gm/dL (13.0-17.5); Lymphocytes # (A) 2.5 k/uL (1.0-4.8); Lymphocytes % (A) 31 %; MCH 31.4 pg (25.0-35.0); MCHC 33.3 g/dL (31.0-37.0); MCV 94.3 fL (80.0-100.0); Mean Platelet Volume 7.4; Monocytes # (A) 0.4 k/uL (0-1.0); Monocytes % (A) 6 %; Neutrophils # (A) 4.8 k/uL (1.3-7.7); Neutrophils % (A) 59 %; Platelet Count 241 k/uL (150-450); RBC 5.37 m/uL (4.30-5.90); RDW 13.3 % (11.5-15.5); WBC 8.1 k/uL (3.8-10.6)
[2021-06-14 09:37] LABS: ALT 19 U/L (4-49); AST 33 U/L (17-59); African American GFR (CKD) >90 (>60 ml/min/1.73 sqM); Albumin 4.7 g/dL (3.5-5.0); Alkaline Phosphatase 104 U/L (38-126); Anion Gap 8 mmol/L; Blood Urea Nitrogen 13 mg/dL (9-20); Calcium 10.3 mg/dL (8.4-10.2); Carbon Dioxide 25 mmol/L (22-30); Chloride 105 mmol/L (98-107); Glucose 94 mg/dL (74-99); Non-African American GFR(CKD) >90 (>60 ml/min/1.73 sqM); Potassium 4.4 mmol/L (3.5-5.1); Sodium 138 mmol/L (137-145); Total Bilirubin 0.6 mg/dL (0.2-1.3); Total Protein 7.4 g/dL (6.3-8.2)
--- NOTE | 2021-06-14 11:03 | P.HP ---
Psychiatric H&P - . H&P Date: 06/14/21 History & Physical: IDENTIFYING DATA: He is a 31-year-old single male admitted to the psychiatric unit voluntarily HISTORY OF PRESENT ILLNESS: His mother brought him to the ED and reported a worsening of psychotic symptoms. 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 His mother complained that he appeared more psychotic when he was re-prescribed Luvox during his last psychiatric hospitalization. The patient was a poor historian and provided minimal information. He alleged that he had ALLERGIC reaction to Freon. He talked about "pulling the refrigerator" and Freon arm spraying his arms. This explanation made no practical sense because she alleged she was just "straightening refrigerator." He would not talk about receiving messages or "energy waves" from the refrigerator. However, he did talk about having multiple slight vaginas and alleged one was "splitting." Overall, he reports "feeling better" because "I just needed some sleep." He denied that he was having problems with sleep, energy or appetite prior to admission. He denied experiencing auditory, visual or olfactory hallucinations. He denied ideas of reference, thought insertion or thought broadcasting. He denied use of alcohol or drugs. He is not provided a urine sample for urine drug screen but his breath alcohol level was 0. PAST PSYCHIATRIC HISTORY: He has a complicated psychiatric history with multiple diagnoses, multiple psychiatric hospitalizations and multiple psychotropic medication trials. According to our medical he was diagnosed with ADHD and treated with psychostimulants beginning at age 7. He mental health problems at 12 and diagnosed with bipolar illness. He was diagnosed with PTSD after he witnessed the murder of a close friend. This is his sixth or seventh admission to our psychiatric unit. He was enrolled in [facility] outpatient mental health clinic under the care of Dr. Stevenson. After the clinic closure has been treated by a community psychiatrist. He was last admitted to [facility] and discharge with the following medications: Lamictal 100 mg twice a day, Luvox 50 mg daily and 100 mg at bedtime, Klonopin half a milligram morning, 0.25 mg at noon and 1 mg at bedtime and Geodon 40 mg at bedtime. PAST MEDICAL HISTORY: According to medical record he has history of GERD, GI bleed and kidney stones. ALLERGIES: Aripiprazole, citalopram, Depakote, paroxetine SUBSTANCE USE HISTORY: He has a history of an alcohol use disorder but has been abstinent for 2-3 years. He occasionally smokes marijuana and smokes a half pack of cigarettes daily. FAMILY PSYCHIATRIC/SUBSTANCE USE HISTORY: He has a strong family history of men dixie illness. A maternal uncle committed suicide. Several relative on the maternal side have been diagnosis was severe mental illness such as bipolar and schizophrenia. His sister has been diagnosed with an eating disorder and an anxiety disorder. LEGAL HISTORY: None SOCIAL HISTORY: He has a history of a developmental and/or learning disability. He was in special education throughout school. He left school in the 10th grade. He is single and has 1 child out of wedlock. He is unemployed and is so security disability. He lives with his parents. He spends most of his time alone with family. MENTAL STATUS EXAM: He presented as disheveled-appearing 31-year-old male who was pleasant on approach. He made eye contact and attended to the interview. No distinguishing features or prominent physical abnormalities. He had a flat facial expression. He is alert and oriented to person and place. He showed psychomotor retardation but no abnormal involuntary movements. His gait was slow but steady. His speech was not spontaneous and had decreased rate, rhythm and volume. He showed poverty of speech and poverty of content. He denied suicidal ideation, wishes or homicidal ideation. He did not express feelings of hopelessness, helplessness or worthlessness. He ruminated about having ALLERGIC reaction to Freon. He described organize somatic delusional belief. A paranoid and guarded. He did not express ideas reference. His thinking is very concrete and his associations are time were not fully organized and goal directed. He did not express or symptoms or blocking. He denied hallucinations did not appear to be responding to internal stimuli. Global impression of intellect is below average. He has limited awareness or understanding of the illness but is accepting of treatment. STRENGTHS: Physical health, stable housing, supportive family, stable income, compliance with mental health treatment WEAKNESSES: Chronic and persistent mental illness IMPRESSION: He is a 31-year-old developmentally disabled man who has a located psychiatric history with multiple diagnoses, multiple hospitalizations and multiple medication trials. He presented with increasing confusion, paranoia, somatic delusions and ideas of reference. There are no current symptoms consistent with elevated mood or irritability consistent with chandni or hypomania. I suspect that he has underlying psychotic illness or a primary mood disability. She should be treated inpatient basis with combination of psychopharmacology and multimodal therapy PRINCIPLE DIAGNOSIS: Schizoaffective disorder unspecified, history of PTSD, history of ADHD, alcohol use disorder and sustained remission, developmental disability RECOMMENDATION: admit to the psychiatric unit. Safety precautions. Consult medicine for initial physical exam and medical history. facility maintenance worker completed initial psychosocial assessment coordinate discharge and aftercare. Activity assessment. Continue Klonopin 0.5 mg daily and 0.25 mg at noon. Lamictal 100 mg twice a day, ziprasidone 40mg BID. Ziprasidone 20 mg IM twice a day when necessary for agitation acute psychosis. Ativan 2 mg by mouth 3 times a day when necessary for anxiety, agitation. Encourage participation in therapeutic groups and activities. Evaluate clinical status response to treatment daily basis. Allergies Allergy/AdvReac Type Severity Reaction Status Date / Time aripiprazole [From Abilify] Allergy Unknown Verified 10/20/20 18:10 citalopram [From Celexa] Allergy Unknown Verified 10/20/20 18:10 divalproex sodium Allergy Unknown Verified 10/20/20 18:10 [From Depakote] paroxetine [From Paxil] Allergy Unknown Verified 10/20/20 18:10 sertraline [From Zoloft] Allergy Unknown Verified 10/20/20 18:10 temazepam [From Restoril] Allergy Unknown Verified 10/20/20 18:10 phenobarbital AdvReac Severe Rapid Verified 10/20/20 18:10 Heart Rate zolpidem tartrate AdvReac Unknown Altered Verified 10/20/20 18:10 [From Ambien] Mental Status estropipate [From Ogen 2.5] AdvReac Twitching Verified 10/20/20 18:10 of Legs haloperidol [From Haldol] AdvReac Agitation Verified 10/20/20 18:10 methylprednisolone AdvReac Altered Verified 10/20/20 18:10 [From Solu-Medrol] Mental Status vaylar Allergy Unknown Uncoded 10/20/20 18:10 Vital Signs Temp 98.1 F 06/13/21 22:57 Pulse 109 H 06/14/21 06:17 Resp 20 06/14/21 06:17 BP 125/78 06/14/21 06:17 Pulse Ox 99 06/13/21 19:20 Intake & Output 06/13/21 06/14/21 06/14/21 18:59 06:59 18:59 Weight 77.111 kg Laboratory Last Values WBC 8.1 k/uL (3.8-10.6) 06/14/21 08:13 RBC 5.37 m/uL (4.30-5.90) 06/14/21 08:13 Hgb 16.9 gm/dL (13.0-17.5) 06/14/21 08:13 Hct 50.6 % (39.0-53.0) 06/14/21 08:13 MCV 94.3 fL (80.0-100.0) 06/14/21 08:13 MCH 31.4 pg (25.0-35.0) 06/14/21 08:13 MCHC 33.3 g/dL (31.0-37.0) 06/14/21 08:13 RDW 13.3 % (11.5-15.5) 06/14/21 08:13 Plt Count 241 k/uL (150-450) 06/14/21 08:13 MPV 7.4 06/14/21 08:13 Neutrophils % 59 % 06/14/21 08:13 Lymphocytes % 31 % 06/14/21 08:13 Monocytes % 6 % 06/14/21 08:13 Eosinophils % 3 % 06/14/21 08:13 Basophils % 1 % 06/14/21 08:13 Neutrophils # 4.8 k/uL (1.3-7.7) 06/14/21 08:13 Lymphocytes # 2.5 k/uL (1.0-4.8) 06/14/21 08:13 Monocytes # 0.4 k/uL (0-1.0) 06/14/21 08:13 Eosinophils # 0.2 k/uL (0-0.7) 06/14/21 08:13 Basophils # 0.0 k/uL (0-0.2) 06/14/21 08:13 Sodium 138 mmol/L (137-145) 06/14/21 08:13 Potassium 4.4 mmol/L (3.5-5.1) 06/14/21 08:13 Chloride 105 mmol/L (98-107) 06/14/21 08:13 Carbon Dioxide 25 mmol/L (22-30) 06/14/21 08:13 Anion Gap 8 mmol/L 06/14/21 08:13 BUN 13 mg/dL (9-20) 06/14/21 08:13 Creatinine 0.74 mg/dL (0.66-1.25) 06/14/21 08:13 Est GFR (CKD-EPI)AfAm >90 (>60 ml/min/1.73 sqM) 06/14/21 08:13 Est GFR (CKD-EPI)NonAf >90 (>60 ml/min/1.73 sqM) 06/14/21 08:13 Glucose 94 mg/dL (74-99) 06/14/21 08:13 Calcium 10.3 mg/dL (8.4-10.2) H 06/14/21 08:13 Total Bilirubin 0.6 mg/dL (0.2-1.3) 06/14/21 08:13 AST 33 U/L (17-59) 06/14/21 08:13 ALT 19 U/L (4-49) 06/14/21 08:13 Alkaline Phosphatase 104 U/L (38-126) 06/14/21 08:13 Total Protein 7.4 g/dL (6.3-8.2) 06/14/21 08:13 Albumin 4.7 g/dL (3.5-5.0) 06/14/21 08:13 TSH 0.576 mIU/L (0.465-4.680) 06/14/21 08:13 Coronavirus (PCR) Not Detected (Not Detectd) 06/13/21 18:34 06/14/21 10:28
[2021-06-14] MEDS: LORazepam 1 MG TAB PO PRN (14:07)
[2021-06-14 15:09] LABS: Appearance,Urine Cloudy (Clear); Bacteria,Urine Rare /hpf; Bilirubin,Urine Negative (Negative); Blood,Urine Negative (Negative); Color,Urine Yellow; Glucose,Urine (UA) Negative (Negative); Ketones,Urine Negative (Negative); Leukocyte Esterase,Urine Trace (Negative); Mucus,Urine Many /hpf; Nitrite,Urine Negative (Negative); Protein,Urine 1+ (Negative); RBC,Urine 1 /hpf (0-5); Specific Gravity,Urine 1.023 (1.001-1.035); Urobilinogen,Urine <2.0 mg/dL (<2.0); WBC,Urine 4 /hpf (0-5)
[2021-06-14 15:12] LABS: Amphetamine Screen,Urine Detected (NotDetected); Barbiturate Screen,Urine Not Detected (NotDetected); Benzodiazepines Screen,Urine Detected (NotDetected); Cocaine Screen,Urine Not Detected (NotDetected); Methadone Screen, Urine Not Detected (NotDetected); Opiate Screen,Urine Not Detected (NotDetected); Oxycodone Screen, Urine Not Detected (NotDetected); Phencyclidine Screen,Urine Not Detected (NotDetected); Tricyclic Antidepressant,Urine Not Detected (NotDetected); Urn Cannabinoid Scrn Detected (NotDetected)
[2021-06-14] MEDS: ZIPRASIDONE 40 MG CAP PO SCH (20:02)
[2021-06-14 20:30] LABS: Chol/HDL Ratio 6.67 Ratio; LDL Cholesterol,Calculated 189.7 mg/dL (0.0-131.0)
[2021-06-15] MEDS: NICOTINE 14MG/24HR PATCH TRANSDERM SCH (08:25)
[2021-06-15] MEDS: ZIPRASIDONE 40 MG CAP PO SCH ×2 (08:25→20:27)
[2021-06-15] MEDS: clonazePAM 0.5 MG TAB PO SCH ×2 (08:26→12:53)
[2021-06-15] MEDS: lamoTRIgine 100 MG TAB PO SCH ×2 (08:26→20:27)
[2021-06-15] MEDS: LORazepam 1 MG TAB PO PRN (09:58)
--- NOTE | 2021-06-15 13:01 | P.PN ---
Progress Note - Text Progress Note Date: 06/15/21 Clinical Problems: Schizoaffective disorder unspecified, history of PTSD, history of ADHD, alcohol use disorder and sustained remission, developmental disability Interim history: I reviewed the medical record and interviewed the patient. He complained of feeling tired and fatigued. He inquired why we haven't prescribed Adderall since spent in the hospital. He denied experiencing auditory, visual or olfactory hallucinations. He denied ideas of reference, thought insertion, thought broadcasting or thought control. He did not perseverated about being contaminated by Freon and denied that he was having physical effects from the apparent Freon exposure. He would not talk about his belief that he has multiple vaginas His UDS was positive for amphetamines, benzodiazepines and marijuana. He is prescribed amphetamines and benzodiazepines. He does not attend therapeutic groups and activities. He spends his time alone seldom interacting with staff or peers. He slept 7 hours last night. Mental status exam: Her mood as a casually groomed male dressed in hospital gown he made eye contact is here to have difficulty concentrating and attending to the interview. He had no physical abnormalities. He had a flat facial expression. He was alert and oriented to person, place and time. He had no abnormality of psychomotor activity. His speech was spontaneous with blunted rhythm but normal volume and amount. He had no articulation difficulties. His affect was flat. He denied suicidal ideation and wishes. He denied homicidal ideation. He denied feeling hopeless, helpless or worthless. He did not express phobias, ideas reference, paranoid ideation, magical ideation or delusions. He denied hallucinations and did not appear to be responding to internal stimuli. Assessment: He is chronically mentally ill and moderately improve from admission. I have concerns about chronic prescription of psychostimulants given his chronic psychotic illness but a review of prescription records indicate he has been prescribed Adderall for several years. Plan: Continue inpatient treatment. Safety precautions. Decrease Geodon to 20 mg a.m. and 40 mg at bedtime. Continue Klonopin 0.5 mg the morning and 0.25 mg at noon., Lamictal 100 mg twice a day, and Habitrol for smoking cessation. Ativan and/or Geodon for anxiety, agitation acute psychosis. Encourage participation in therapeutic groups and activities. Evaluate clinical status response to treatment daily basis.
--- NOTE | 2021-06-16 00:05 | P.PN ---
Progress Note - Text Progress Note Date: 06/15/21 Attempted to evaluate patient however he was sleeping Per RN patient is delusional and not appropriate for evaluation anyways
[2021-06-16] MEDS: LORazepam 1 MG TAB PO PRN ×2 (05:49→15:10)
[2021-06-16] MEDS: NICOTINE 14MG/24HR PATCH TRANSDERM SCH (08:12)
[2021-06-16] MEDS: ZIPRASIDONE 20 MG CAP PO SCH (08:13)
[2021-06-16] MEDS: lamoTRIgine 100 MG TAB PO SCH ×2 (08:13→20:32)
[2021-06-16] MEDS: clonazePAM 0.5 MG TAB PO SCH ×2 (08:14→11:21)
--- NOTE | 2021-06-16 11:51 | P.PN ---
Progress Note - Text Progress Note Date: 06/16/21 Interval History: Patient was seen resting in bed and was directable and agreeable to speak with financial underwriter in the office. The patient reports that he is here in the hospital because he felt like "the freon in the refrigerator was poisonous and caused me to have a mental breakdown." He reports that he became very overwhelmed and that lead to his psychotic symptoms. He is currently denying any other issues aside from the "freon" exposure. He denies any suicidal or homicidal ideation, intention, and/or plan. He reports no auditory or visual hallucinations. He denies any other delusional thoughts. He reports thought insertion, thought casting, thought control, ideas of reference, or magical thinking. He denies any paranoia. He does not mention anything about vaginas today. She has been adherent to his medications not endorsing any significant side effects this time . The patient has been mainly isolative to himself in his room and as per discussion with the treatment team, this is not like him. He states that he'll try to get out of his room today. Mental Status Exam: General Appearance: Patient appears to be stated age is alert, directable, and cooperative. Buzz cut hair. Behavior: Patient is calmly seated without any agitated behavior. Eye contact i s appropriate. Speech: Patient's speech is fluent and nonpressured. Spontaneous, with normal rate, tone, and volume. Mood/Affect: Mood is improving mildly, affect is congruent but blunted in range. Suicidality/Homicidality: The patient denies any suicidal or homicidal ideation, intention, and/or plan. Perceptions: The patient denies any auditory or visual hallucinations. Though content/process: There is no evidence of any delusional thought content and thought process is linear and goal-directed. Memory and concentration: AOX3, grossly intact for the purposes of this session Judgment and insight: Improving mildly Vital Signs Temp 97.7 F 06/16/21 05:50 Pulse 95 06/16/21 08:10 Resp 18 06/16/21 05:50 BP 121/73 06/16/21 08:10 Pulse Ox 99 06/13/21 19:20 Laboratory Results - Last 24 Hours 06/16/21 09:12 Ammonia <9 Assessment Schizoaffective disorder, unspecified Posttraumatic stress disorder ADHD Alcohol use disorder with sustained remission Cannabis use disorder - suspect heavy cannabis use as the precipitating factor in his psychotic break. Plan: -Patient continues to meet criteria for inpatient psychiatric admission for symptom stabilization and safety. Patient has signed adult voluntary form and medication consent and was placed in patient's chart. -Medications: Continue Klonopin 0.25 mg by mouth daily and 0.5 mg by mouth every morning for anxiety Continue Lamictal 100 mg by mouth twice a day for mood stabilization Continue Geodon 40 mg at bedtime for mood stabilization/psychosis -When necessary Geodonfor agitation/aggression. -NRT - nicotine patch -SW on board for discharge planning. Encouraged the patient to participate in milieu.
[2021-06-16] MEDS: ZIPRASIDONE 40 MG CAP PO SCH (20:32)
[2021-06-17] MEDS: NICOTINE 14MG/24HR PATCH TRANSDERM SCH (08:08)
[2021-06-17] MEDS: lamoTRIgine 100 MG TAB PO SCH ×2 (08:08→19:51)
[2021-06-17] MEDS: ZIPRASIDONE 20 MG CAP PO SCH (08:08)
[2021-06-17] MEDS: clonazePAM 0.5 MG TAB PO SCH ×2 (08:08→12:33)
[2021-06-17] MEDS: LORazepam 1 MG TAB PO PRN ×2 (09:48→17:22)
--- NOTE | 2021-06-17 10:53 | P.PN ---
Progress Note - Text Progress Note Date: 06/17/21 Interval History: Patient was seen resting in bed and was directable and agreeable to speak with program writer in his room. Currently, the patient is not endorsing any suicidal or homicidal ideation, intention, and/or plan. He is currently not reporting any auditory or visual hallucinations. The patient is denying any issues regarding his sleep or his appetite. He is not reporting any delusional thought content. The patient states that he is experiencing "brain zaps." He states that this occurs mainly in the morning and at night. He is unable to identify any exacerbating or alleviating factors. He states that they end up stopping throughout the day. He states that he also feels lightheaded at times. The patient is otherwise not endorsing any other significant side effects of his medications. He has been adherent. He continues to remain isolative to himself in his room, only coming out for meals. Mental Status Exam: General Appearance: Patient appears to be stated age is alert, directable, and cooperative. Buzz cut hair. Behavior: Patient is calmly seated without any agitated behavior. Eye contact is appropriate. Speech: Patient's speech is fluent and nonpressured. Spontaneous, with normal rate, tone, and volume. Mood/Affect: Mood is improving mildly, affect is congruent with constricted range. Suicidality/Homicidality: The patient denies any suicidal or homicidal ideation, intention, and/or plan. Perceptions: The patient denies any auditory or visual hallucinations. Though content/process: There is no evidence of any delusional thought content and thought process is linear and goal-directed. Memory and concentration: AOX3, grossly intact for the purposes of this session Judgment and insight: Improving mildly Vital Signs Temp 97.2 F L 06/17/21 06:57 Pulse 91 06/17/21 09:51 Resp 16 06/17/21 09:51 BP 116/72 06/17/21 09:51 Pulse Ox 97 06/17/21 06:57 Assessment Schizoaffective disorder, unspecified Posttraumatic stress disorder ADHD Alcohol use disorder with sustained remission Cannabis use disorder - suspect heavy cannabis use as the precipitating factor in his psychotic break. Plan: -Patient continues to meet criteria for inpatient psychiatric admission for symptom stabilization and safety. Patient has signed adult voluntary form and medication consent and was placed in patient's chart. -Medications: Continue Klonopin 0.25 mg by mouth daily and 0.5 mg by mouth every morning for anxiety Continue Lamictal 100 mg by mouth twice a day for mood stabilization Continue Geodon 40 mg at bedtime for mood stabilization/psychosis -When necessary Geodonfor agitation/aggression. -NRT - nicotine patch -SW on board for discharge planning. Encouraged the patient to participate in milieu.
[2021-06-17] MEDS: ZIPRASIDONE 40 MG CAP PO SCH (19:51)
[2021-06-18 06:11] VITALS: BP 122/65; PULSE 79; RESP 15; TEMP 98.3
[2021-06-18] MEDS: ZIPRASIDONE 20 MG CAP PO SCH (08:06)
[2021-06-18] MEDS: lamoTRIgine 100 MG TAB PO SCH (08:06)
[2021-06-18] MEDS: NICOTINE 14MG/24HR PATCH TRANSDERM SCH (08:06)
[2021-06-18] MEDS: clonazePAM 0.5 MG TAB PO SCH ×2 (08:06→11:54)
--- NOTE | 2021-06-18 12:59 | P.DS ---
Providers Date of admission: 06/13/21 21:55 Expected date of discharge: 06/18/21 Attending physician: Seymour Narayanan MD Consults: 06/13/21 22:07 Consult Physician Routine Consulting Provider: [facility] Consult Reason/Comments: medical management Do you want consulting provider notified?: Yes, Notify in am Primary care physician: Stated None - Discharge Diagnosis(es) (1) Schizoaffective disorder Current Visit: Yes Status: Acute Priority: High (2) Cannabis use disorder, severe, dependence Current Visit: Yes Status: Chronic Priority: Medium (3) Post traumatic stress disorder (PTSD) Current Visit: Yes Status: Chronic Priority: Medium Hospital Course: Admission HPI: Initial psychiatric evaluation was completed by Dr. Isidro on 06/14/21 who wrote: "He is a 31-year-old single male admitted to the psychiatric unit voluntarily His mother brought him to the ED and reported a worsening of psychotic symptoms. 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 His mother complained that he appeared more psychotic when he was re-prescribed Luvox dur ing his last psychiatric hospitalization. The patient was a poor historian and provided minimal information. He alleged that he had ALLERGIC reaction to Freon. He talked about "pulling the refriger ator" and Freon arm spraying his arms. This explanation made no practical sense because she alleged she was just "straightening refrigerator." He would not talk about receiving messages or "energy waves" from the refrigerator. However, he did talk about having multiple slight vaginas and alleged one was "splitting." Overall, he reports "feeling better" because "I just needed some sleep." He d enied that he was having problems with sleep, energy or appetite prior to admission. He denied experiencing auditory, visual or olfactory hallucinations. He denied ideas of reference, thought insertion or thought broadcasting. He denied use of alcohol or drugs. He is not provided a urine sample for urine drug screen but his breath alcohol level was 0. He has a complicated psychiatric history with multiple diagnoses, multiple psychiatric hospitalizations and multiple psychotropic medication trials. According to our medical he was diagnosed with ADHD and treated with psychostimulants beginning at age 7. He mental health problems at 12 and diagnosed with bipolar illness. He was diagnosed with PTSD after he witnessed the murder of a close friend. This is his sixth or seventh admission to our psychiatric unit. He was enrolled in [facility] outpatient mental health clinic under the care of Dr. Stevenson. After the clinic closure has been treated by a community psychiatrist. He was last admitted to [facility] and discharge with the following medications: Lamictal 100 mg twice a day, Luvox 50 mg daily and 100 mg at bedtime, Klonopin half a milligram morning, 0.25 mg at noon and 1 mg at bedtime and Geodon 40 mg at bedtime." Hospital course: Upon admission to the unit patient was initially presenting in a psychotic with bizarre delusional thoughts and some gross disorganization. Patient was however directable and agreeable to commence treatment. Patient got along well with other patients on the unit and followed unit protocol. Patient was compliant with the medications and denied any side effects throughout hospital course. Patient was started on his home medication of Klonopin, Lamictal, and Geodon. The patient's Geodon was restarted at 40 mg by mouth twice a day but due to apparent sedation in the morning, the Geodon was decreased 20 mg in the morning and 40 mg at bedtime. Initially, the patient continued to display significant symptoms of psychosis and bizarre delusional thoughts. As hospitalization continued, the patient displayed significant improvement in these target symptoms. The patient showed significant improvement in regards to his mood, anxiety, sleep, and organization. Furthermore, his delusional thoughts have decreased or ceased. The patient was counseled at length that Adderall and cannabis can contribute to his psychotic symptoms. The patient addresses understanding regarding the cannabis but appears to be hesitant in stopping Adderall that he receives from his outpatient provider. On the day of discharge, patient is not endorsing any suicidal or homicidal ideation, intention,/or plan. He is not reporting auditory or visual hallucinations. Denies any paranoia or other delusions. Patient has been adherent with his medications and is not endorsing any significant side effects. Patient was also counseled on the medications and need for regular compliance and was encouraged to follow-up with their outpatient appointment for mental health and also for primary care. Prior to discharge a family meeting will be arranged by social science research assistant to answer any questions and ensure safety upon discharge. Mental status exam: General Appearance: Patient appears to be stated age is alert, pleasant, and cooperative. Patient is in no acute distress and has fair hygiene and grooming. Buzz cut hair. Behavior: Patient is calmly seated without any agitated behavior. Psychomotor activity appears normal. Eye contact is appropriate. Speech: Patient's speech is fluent and nonpressured. Mood/Affect: Patient reports their mood is "much better", affect is congruent and euthymic to bright. Suicidality/Homicidality: Patient denies any suicidal or homicidal ideation, intention, and/or plan. Perceptions: Patient denies any auditory or visual hallucinations. Though content/process: There is no evidence of any delusional thought content and thought process is linear and goal-directed. more future oriented Memory and concentration: AOX3, grossly intact for the purposes of this session. Can spell "WORLD" backwards correctly. Judgment and insight: Improved with guarded prognosis Vital Signs Temp 98.3 F 06/18/21 06:10 Pulse 79 06/18/21 06:10 Resp 15 06/18/21 06:10 BP 122/65 06/18/21 06:10 Pulse Ox 97 06/17/21 06:57 Impression: Schizoaffective disorder, unspecified Posttraumatic stress disorder ADHD Alcohol use disorder with sustained remission Cannabis use disorder Plan: -Continue with discharge today as patient has improved and stabilized psychiat rically and is not currently an imminent threat to himself and/or others. Patient will remain at chronically elevated risk for harm to self and/or others due to his impulsivity and polysubstance abuse. -Continue medications: Geodon 20 mg by mouth every morning, and 40 mg by mouth daily at bedtime for management of psychosis Lamictal 100 mg by mouth twice a day for mood stabilization Klonopin medication and she may continue at home. This provider will not write a prescription as patient does have an active prescription to his outpatient providers. -Patient was counseled on the need for medication compliance and appropriate follow-up at mental health and also primary care for medical issues. Patient verbalized understanding and agreed. -Social work to arrange for and conduct family meeting to ensure safety upon discharge and answer any questions/concerns. Social work also to arrange for patients follow up appointments with [facility] for psychiatric care along with follow up with primary care provider. -Patient counseled on abstaining from recreational drugs and marijuana and alcohol. Was informed/educated on the adverse effects on their physical and mental health. Patient verbally agreed and understood. Patient was offered substance abuse treatment however declined at this time. -Patient was instructed to return to the hospital or seek immediate medical care if their psychiatric or medical symptoms do worsen or reoccur. -Psychoeducation and supportive therapy provided to patient. Risks and benefits of pharmacological treatment versus the risks and benefits of nontreatment weigh t and discussed. Informed consent discussion held. Common side effects of psychotropics discussed such as, but not limited to headache, GI disturbance, sexual dysfunction, movement disorders, sedation, and orthostatic hypotension. Life threatening and blackbox warnings of prescribed medications also discussed. Potential risks of operating a vehicle or heavy machinery discussed with patient at length. Advised on importance of compliance and a reliable and responsible manner. Patient advised to review FDA consumer labeling of all medications prior to taking. Patient verbalized understanding of potential risks, and agrees with current treatment plan. Patient advised to medically contact physician/emergency personnel if any acute changes in condition occur. Laboratory Results WBC 8.1 k/uL (3.8-10.6) 06/14/21 08:13 RBC 5.37 m/uL (4.30-5.90) 06/14/21 08:13 Hgb 16.9 gm/dL (13.0-17.5) 06/14/21 08:13 Hct 50.6 % (39.0-53.0) 06/14/21 08:13 MCV 94.3 fL (80.0-100.0) 06/14/21 08:13 MCH 31.4 pg (25.0-35.0) 06/14/21 08:13 MCHC 33.3 g/dL (31.0-37.0) 06/14/21 08:13 RDW 13.3 % (11.5-15.5) 06/14/21 08:13 Plt Count 241 k/uL (150-450) 06/14/21 08:13 MPV 7.4 06/14/21 08:13 Neutrophils % 59 % 06/14/21 08:13 Lymphocytes % 31 % 06/14/21 08:13 Monocytes % 6 % 06/14/21 08:13 Eosinophils % 3 % 06/14/21 08:13 Basophils % 1 % 06/14/21 08:13 Neutrophils # 4.8 k/uL (1.3-7.7) 06/14/21 08:13 Lymphocytes # 2.5 k/uL (1.0-4.8) 06/14/21 08:13 Monocytes # 0.4 k/uL (0-1.0) 06/14/21 08:13 Eosinophils # 0.2 k/uL (0-0.7) 06/14/21 08:13 Basophils # 0.0 k/uL (0-0.2) 06/14/21 08:13 Sodium 138 mmol/L (137-145) 06/14/21 08:13 Potassium 4.4 mmol/L (3.5-5.1) 06/14/21 08:13 Chloride 105 mmol/L (98-107) 06/14/21 08:13 Carbon Dioxide 25 mmol/L (22-30) 06/14/21 08:13 Anion Gap 8 mmol/L 06/14/21 08:13 BUN 13 mg/dL (9-20) 06/14/21 08:13 Creatinine 0.74 mg/dL (0.66-1.25) 06/14/21 08:13 Est GFR (CKD-EPI)AfAm >90 (>60 ml/min/1.73 sqM) 06/14/21 08:13 Est GFR (CKD-EPI)NonAf >90 (>60 ml/min/1.73 sqM) 06/14/21 08:13 Glucose 94 mg/dL (74-99) 06/14/21 08:[address] Glu mg/dL 108 06/14/21 08:13 Hemoglobin A1c 5.4 % (4.0-6.0) 06/14/21 08:13 Calcium 10.3 mg/dL (8.4-10.2) H 06/14/21 08:13 Total Bilirubin 0.6 mg/dL (0.2-1.3) 06/14/21 08:13 AST 33 U/L (17-59) 06/14/21 08:13 ALT 19 U/L (4-49) 06/14/21 08:13 Alkaline Phosphatase 104 U/L (38-126) 06/14/21 08:13 Ammonia <9 umol/L (<30) 06/16/21 09:12 Total Protein 7.4 g/dL (6.3-8.2) 06/14/21 08:13 Albumin 4.7 g/dL (3.5-5.0) 06/14/21 08:13 Triglycerides 216.00 mg/dL (0.00-149.00) H 06/14/21 08:13 Cholesterol 274.00 mg/dL (0.00-200.00) H 06/14/21 08:13 LDL Cholesterol, Calc 189.7 mg/dL (0.0-131.0) H 06/14/21 08:13 VLDL Cholesterol, Calc 43.20 mg/dL (5.00-40.00) H 06/14/21 08:13 HDL Cholesterol 41.10 mg/dL (40.00-60.00) 06/14/21 08:13 Cholesterol/HDL Ratio 6.67 Ratio 06/14/21 08:13 TSH 0.576 mIU/L (0.465-4.680) 06/14/21 08:13 Urine Color Yellow 06/14/21 14:08 Urine Appearance Cloudy (Clear) 06/14/21 14:08 Urine pH 6.0 (5.0-8.0) 06/14/21 14:08 Ur Specific [place] 1.023 (1.001-1.035) 06/14/21 14:08 Urine Protein 1+ (Negative) H 06/14/21 14:08 Urine Glucose (UA) Negative (Negative) 06/14/21 14:08 Urine Ketones Negative (Negative) 06/14/21 14:08 Urine Blood Negative (Negative) 06/14/21 14:08 Urine Nitrite Negative (Negative) 06/14/21 14:08 Urine Bilirubin Negative (Negative) 06/14/21 14:08 Urine Urobilinogen <2.0 mg/dL (<2.0) 06/14/21 14:08 Ur Leukocyte Esterase Trace (Negative) H 06/14/21 14:08 Urine RBC 1 /hpf (0-5) 06/14/21 14:08 Urine WBC 4 /hpf (0-5) 06/14/21 14:08 Urine Bacteria Rare /hpf (None) H 06/14/21 14:08 Urine Mucus Many /hpf (None) H 06/14/21 14:08 Urine Opiates Screen Not Detected (NotDetected) 06/14/21 14:16 Ur Oxycodone Screen Not Detected (NotDetected) 06/14/21 14:16 Urine Methadone Screen Not Detected (NotDetected) 06/14/21 14:16 Ur Propoxyphene Screen Not Detected (NotDetected) 06/14/21 14:16 Ur Barbiturates Screen Not Detected (NotDetected) 06/14/21 14:16 U Tricyclic Antidepress Not Detected (NotDetected) 06/14/21 14:16 Ur Phencyclidine Scrn Not Detected (NotDetected) 06/14/21 14:16 Ur Amphetamines Screen Detected (NotDetected) H 06/14/21 14:16 U Methamphetamines Scrn Not Detected (NotDetected) 06/14/21 14:16 U Benzodiazepines Scrn Detected (NotDetected) H 06/14/21 14:16 Urine Cocaine Screen Not Detected (NotDetected) 06/14/21 14:16 U Marijuana (THC) Screen Detected (NotDetected) H 06/14/21 14:16 Coronavirus (PCR) Not Detected (Not Detectd) 06/13/21 18:34 Allergies Allergy/AdvReac Type Severity Reaction Status Date / Time aripiprazole [From Abilify] Allergy Unknown Verified 10/20/20 18:10 citalopram [From Celexa] Allergy Unknown Verified 10/20/20 18:10 divalproex sodium Allergy Unknown Verified 10/20/20 18:10 [From Depakote] paroxetine [From Paxil] Allergy Unknown Verified 10/20/20 18:10 sertraline [From Zoloft] Allergy Unknown Verified 10/20/20 18:10 temazepam [From Restoril] Allergy Unknown Verified 10/20/20 18:10 phenobarbital AdvReac Severe Rapid Verified 10/20/20 18:10 Heart Rate zolpidem tartrate AdvReac Unknown Altered Verified 10/20/20 18:10 [From Ambien] Mental Status estropipate [From Ogen 2.5] AdvReac Twitching Verified 10/20/20 18:10 of Legs haloperidol [From Haldol] AdvReac Agitation Verified 10/20/20 18:10 methylprednisolone AdvReac Altered Verified 10/20/20 18:10 [From Solu-Medrol] Mental Status vaylar Allergy Unknown Uncoded 10/20/20 18:10 Patient Condition at Discharge: Stable Plan - Discharge Summary New Discharge Prescriptions: New Ziprasidone [Geodon] 20 mg PO DAILY 30 Days cap Ziprasidone [Geodon] 40 mg PO HS 30 Days cap Nicotine 14Mg/24Hr Patch [Habitrol] 1 patch TRANSDERM DAILY #30 patch lamoTRIgine [LaMICtal] 100 mg PO BID 30 Days tab Continue clonazePAM [KlonoPIN] 0.5 mg PO QAM clonazePAM [KlonoPIN] 0.25 mg PO DAILY@1200 clonazePAM [KlonoPIN] 1 mg PO HS Discontinued fluvoxaMINE MALEATE 50 mg PO DAILY Ziprasidone [Geodon] 40 mg PO HS fluvoxaMINE [Luvox] 100 mg PO HS lamoTRIgine [LaMICtal] 100 mg PO BID Discharge Medication List clonazePAM [KlonoPIN] 0.25 mg PO DAILY@1200 06/13/21 [History] clonazePAM [KlonoPIN] 0.5 mg PO QAM 06/13/21 [History] clonazePAM [KlonoPIN] 1 mg PO HS 06/13/21 [History] Nicotine 14Mg/24Hr Patch [Habitrol] 1 patch TRANSDERM DAILY #30 patch 06/18/21 [Rx] Ziprasidone [Geodon] 20 mg PO DAILY 30 Days cap 06/18/21 [Rx] Ziprasidone [Geodon] 40 mg PO HS 30 Days cap 06/18/21 [Rx] lamoTRIgine [LaMICtal] 100 mg PO BID 30 Days tab 06/18/21 [Rx] Follow up Appointment(s)/Referral(s): [facility] [Outside] - 06/23/21 12:00 pm ([place]) [facility] - 1 Week Patient Instructions/Handouts: How to Stop Smoking (DC), Schizoaffective Disorder (DC) Activity/Diet/Wound Care/Special Instructions: Activity and diet as tolerated. Avoid the use of street drugs and alcohol. Take all medications as prescribed. When you are in need of refills on your medications please contact your medical provider and/or outpatient psychiatrist to have this done. Please go to scheduled outpatient appointment for aftercare treatment. If symptoms return or become worse, call the crisis line at and/or go to the nearest emergency room for evaluation. Discharge Disposition: HOME SELF-CARE
== END 2021-06-18 12:43 | disposition home or self-care (01) | DRG 885 ==
LOC: EC 17:18 → 3MHU 21:55
PROVIDERS: ADMIT Psychiatry & Neurology Psychiatry; ATTEND Psychiatry & Neurology Psychiatry
DX: F25.9 Schizoaffective disorder, unspecified (principal); F10.11 Alcohol abuse, in remission; F12.20 Cannabis dependence, uncomplicated; Z20.822 Contact with and (suspected) exposure to COVID-19; F43.10 Post-traumatic stress disorder, unspecified; F90.9 Attention-deficit hyperactivity disorder, unspecified type; F89 Unspecified disorder of psychological development; K21.9 Gastro-esophageal reflux disease without esophagitis; F17.210 Nicotine dependence, cigarettes, uncomplicated; Z71.6 Tobacco abuse counseling; Z79.899 Other long term (current) drug therapy; Z87.442 Personal history of urinary calculi; Z87.19 Personal history of other diseases of the digestive system; Z90.89 Acquired absence of other organs; Z98.818 Other dental procedure status; Z87.448 Personal history of other diseases of urinary system; Z98.890 Other specified postprocedural states; Z88.8 Allergy status to other drugs, medicaments and biological substances; Z81.1 Family history of alcohol abuse and dependence; Z82.69 Family history of other diseases of the musculoskeletal system and connective tissue; Z81.8 Family history of other mental and behavioral disorders
CPT/HCPCS: 80053; 80061; 80306; 81001; 82075; 82140; 83036; 84443; 85025; 87635; 96372; 99285

== ENCOUNTER 2021-06-20 10:59 | Observation (INO) | payer OTHER ==
--- NOTE | 2021-06-20 11:18 | ED ---
General Adult HPI - General Source: patient, EMS, RN notes reviewed, old records reviewed Mode of arrival: EMS Limitations: altered mental status <Ruslan Leslie - Last Filed: 06/20/21 14:37> <Jamari Vegas - Last Filed: 06/20/21 22:10> - General Chief complaint: Psychiatric Symptoms Stated complaint: Mental Health Time Seen by Provider: 06/20/21 11:05 - History of Present Illness Initial comments: This is a 31-year-old male who comes into the emergency department stating that he is having quite a bit of menstrual cramping and quite a bit of menstrual bleeding. Patient insists he does not have a penis. 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 Patient denies any suicidal homicidal ideations. Patient was here recently and the psychiatric elias for similar complaints. Patient denies any physical complaints today. Patient denies any fever chills or cough per patient denies headache patient denies any chest pain difficulty breathing shortness breath per patient denies abdominal pain. (Ruslan Leslie) - Related Data Home Medications Medication Instructions Recorded Confirmed clonazePAM [KlonoPIN] 0.25 mg PO DAILY@1200 06/13/21 06/20/21 clonazePAM [KlonoPIN] 0.5 mg PO DAILY 06/13/21 06/20/21 clonazePAM [KlonoPIN] 1 mg PO HS 06/13/21 06/20/21 Dextroamphetamine/Amphetamine 20 mg PO BID 06/20/21 06/20/21 [Adderall Xr] Previous Rx's Medication Instructions Recorded Nicotine 14Mg/24Hr Patch [Habitrol] 1 patch TRANSDERM DAILY #30 patch 06/18/21 Ziprasidone [Geodon] 20 mg PO DAILY 30 Days cap 06/18/21 Ziprasidone [Geodon] 40 mg PO HS 30 Days cap 06/18/21 lamoTRIgine [LaMICtal] 100 mg PO BID 30 Days tab 06/18/21 Allergies Allergy/AdvReac Type Severity Reaction Status Date / Time aripiprazole [From Abilify] Allergy Unknown Verified 06/20/21 12:34 citalopram [From Celexa] Allergy Unknown Verified 06/20/21 12:34 divalproex sodium Allergy Unknown Verified 06/20/21 12:34 [From Depakote] paroxetine [From Paxil] Allergy Unknown Verified 06/20/21 12:34 sertraline [From Zoloft] Allergy Unknown Verified 06/20/21 12:34 temazepam [From Restoril] Allergy Unknown Verified 06/20/21 12:34 phenobarbital AdvReac Severe Rapid Verified 06/20/21 12:34 Heart Rate zolpidem tartrate AdvReac Unknown Altered Verified 06/20/21 12:34 [From Ambien] Mental Status estropipate [From Ogen 2.5] AdvReac Twitching Verified 06/20/21 12:34 of Legs haloperidol [From Haldol] AdvReac Agitation Verified 06/20/21 12:34 methylprednisolone AdvReac Altered Verified 06/20/21 12:34 [From Solu-Medrol] Mental Status vaylar Allergy Unknown Uncoded 10/20/20 18:10 Review of Systems ROS Other: All systems not noted in ROS Statement are negative. <Ruslan Leslie - Last Filed: 06/20/21 14:37> ROS Other: All systems not noted in ROS Statement are negative. <Jamari Vegas - Last Filed: 06/20/21 22:10> ROS Statement: Those systems with pertinent positive or pertinent negative responses have been documented in the HPI. Past Medical History Past Medical History: GERD/Reflux, GI Bleed, Renal Disease Additional Past Medical History / Comment(s): Gastritis, kidney stones, chrons, possible metabolic disorder History of Any Multi-Drug Resistant Organisms: None Reported Past Surgical History: Tonsillectomy Additional Past Surgical History / Comment(s): wisdom teeth removed. Past Anesthesia/Blood Transfusion Reactions: No Reported Reaction Additional Past Anesthesia/Blood Transfusion Reaction / Comment(s): NEVER HAD BLOOD TRANSFUSION Past Psychological History: ADD/ADHD, Anxiety, Bipolar, Depression, PTSD Smoking Status: Current every day smoker Past Alcohol Use History: None Reported Past Drug Use History: Marijuana - Past Family History Sister(s) Additional Family Medical History / Comment(s): He has one sister that is healthy. He also has a 4-year-old daughter that is healthy. Father Family Medical History: GERD/Reflux Additional Family Medical History / Comment(s): Father is alive at age 60 recovered alcoholic with no major medical problems. Mother Additional Family Medical History / Comment(s): Mother is alive at age 58 recovered alcoholic and chronic back problems. <Ruslan Leslie - Last Filed: 06/20/21 14:37> General Exam Limitations: altered mental status <Ruslan Leslie - Last Filed: 06/20/21 14:37> - General Exam Comments Initial Comments: GENERAL: Patient is well-developed and well-nourished. Patient is nontoxic and well- hydrated and is in no acute distress. ENT: Neck is soft and supple. No significant lymphadenopathy is noted. Oropharynx is clear. Moist mucous membranes. Neck has full range of motion without eliciting any pain. EYES: The sclera were anicteric and conjunctiva were pink and moist. Extraocular movements were intact and pupils were equal round and reactive to light. E yelids were unremarkable. PULMONARY: Unlabored respirations. Good breath sounds bilaterally. No audible rales rhonchi or wheezing was noted. CARDIOVASCULAR: There is a regular rate and rhythm without any murmurs gallops or rubs. ABDOMEN: Soft and nontender with normal bowel sounds. Genitalia: I did a quick examination and the patient does have a penis and testicles. There is no bleeding noted. SKIN: Skin is clear with no lesions or rashes and otherwise unremarkable. NEUROLOGIC: Patient is alert and oriented x3. Cranial nerves II through XII are grossly intact. Motor and sensory are also intact. Normal speech, volume and content. Symmetrical smile. MUSCULOSKELETAL: Normal extremities with adequate strength and full range of motion. LYMPHATICS: No significant lymphadenopathy is noted PSYCHIATRIC: Patient believes that he has put her is that his grafted to his ovaries and he believes he is having menstrual cramping and menstrual bleeding. Patient denies suicidal or homicidal ideations (Ruslan Leslie) Course Vital Signs 06/20/21 11:07 Temperature 99 F Pulse Rate 103 H Respiratory 20 Rate Blood Pressure 124/81 O2 Sat by Pulse 98 Oximetry Medical Decision Making <Ruslan Leslie - Last Filed: 06/20/21 14:37> <Jamari Vegas - Last Filed: 06/20/21 22:10> - Medical Decision Making EPS evaluated the patient and decided the patient needed to be admitted. I filled out a clinical certification for the patient's admission. (Ruslan Leslie) Patient was seen and evaluated and admitted to psychiatry by prior physician earlier this morning. Patient became Covid 19 positive, and therefore requires medicine admission with psychiatry consultation. Patient will be admitted to [facility], Dr. Kavitha RUANO I spoke with who accepted the patient. She requested that I place a consult to Dr. Cardenas of pulmonology. Basic labs will be obtained as well as a chest x-ray. I also consulted inpatient psychiatry, Dr. Cook is to evaluate the patient on an inpatient basis. Nursing staff will place sitter orders. Patient was therefore admitted to the hospital in stable condition for psychiatric evaluation and positive Covid test. (Jamari Vegas) - Lab Data Lab Results 06/20/21 06/20/21 Range/Units 11:37 12:57 Urine Opiates Screen Not Detected (NotDetected) Ur Oxycodone Screen Not Detected (NotDetected) Urine Methadone Screen Not Detected (NotDetected) Ur Propoxyphene Screen Not Detected (NotDetected) Ur Barbiturates Screen Not Detected (NotDetected) U Tricyclic Antidepress Not Detected (NotDetected) Ur Phencyclidine Scrn Not Detected (NotDetected) Ur Amphetamines Screen Detected H (NotDetected) U Methamphetamines Scrn Not Detected (NotDetected) U Benzodiazepines Scrn Detected H (NotDetected) Urine Cocaine Screen Not Detected (NotDetected) U Marijuana (THC) Screen Detected H (NotDetected) Coronavirus (PCR) Detected A (Not Detectd) Disposition Time of Disposition: 14:37 <Ruslan Leslie - Last Filed: 06/20/21 14:37> <Jamari Vegas - Last Filed: 06/20/21 22:10> Clinical Impression: Psychosis Disposition: ADMITTED IP TO THIS HOSP Referrals: None,Stated [Primary Care Provider] - 1-2 days
[2021-06-20 12:31] LABS: Amphetamine Screen,Urine Detected (NotDetected); Barbiturate Screen,Urine Not Detected (NotDetected); Benzodiazepines Screen,Urine Detected (NotDetected); Cocaine Screen,Urine Not Detected (NotDetected); Methadone Screen, Urine Not Detected (NotDetected); Opiate Screen,Urine Not Detected (NotDetected); Oxycodone Screen, Urine Not Detected (NotDetected); Phencyclidine Screen,Urine Not Detected (NotDetected); Tricyclic Antidepressant,Urine Not Detected (NotDetected); Urn Cannabinoid Scrn Detected (NotDetected)
[2021-06-20] MEDS ORDERED: LORazepam 1 MG TAB PO STA (18:20)
[2021-06-20 22:32] LABS: Basophils # (A) 0.1 k/uL (0-0.2); Basophils % (A) 1 %; Eosinophils # (A) 0.3 k/uL (0-0.7); Eosinophils % (A) 3 %; HCT 47.7 % (39.0-53.0); HGB 16.6 gm/dL (13.0-17.5); Lymphocytes # (A) 3.4 k/uL (1.0-4.8); Lymphocytes % (A) 35 %; MCH 31.9 pg (25.0-35.0); MCHC 34.7 g/dL (31.0-37.0); MCV 91.8 fL (80.0-100.0); Mean Platelet Volume 7.5; Monocytes # (A) 0.6 k/uL (0-1.0); Monocytes % (A) 6 %; Neutrophils # (A) 5.1 k/uL (1.3-7.7); Neutrophils % (A) 53 %; Platelet Count 252 k/uL (150-450); RDW 13.7 % (11.5-15.5); WBC 9.6 k/uL (3.8-10.6)
[2021-06-20 22:43] LABS: ALT 15 U/L (4-49); AST 31 U/L (17-59); African American GFR (CKD) >90 (>60 ml/min/1.73 sqM); Albumin 4.8 g/dL (3.5-5.0); Alkaline Phosphatase 98 U/L (38-126); Anion Gap 11 mmol/L; Blood Urea Nitrogen 16 mg/dL (9-20); Carbon Dioxide 21 mmol/L (22-30); Chloride 104 mmol/L (98-107); Glucose 98 mg/dL (74-99); Non-African American GFR(CKD) >90 (>60 ml/min/1.73 sqM); Sodium 136 mmol/L (137-145); Total Bilirubin 0.8 mg/dL (0.2-1.3); Total Protein 7.5 g/dL (6.3-8.2)
[2021-06-20 22:44] LABS: Potassium 3.9 mmol/L (3.5-5.1)
--- NOTE | 2021-06-20 23:49 | XR ---
EXAMINATION TYPE: XR chest 1V portable DATE OF EXAM: 06/20/2021 COMPARISON: 10/28/2018 HISTORY: Pneumonia. Fever. TECHNIQUE: Single view FINDINGS: Heart and mediastinum are normal. Lungs are clear. Diaphragm is normal. Bony thorax appears normal. IMPRESSION: Normal chest. No adverse change.
[2021-06-21] MEDS ORDERED: clonazePAM 0.5 MG TAB PO SCH ×2 (09:00→12:00)
[2021-06-21] MEDS ORDERED: ZIPRASIDONE 20 MG CAP PO SCH (09:00)
[2021-06-21] MEDS: lamoTRIgine 100 MG TAB PO SCH (09:53)
[2021-06-21] MEDS: NICOTINE 14MG/24HR PATCH TRANSDERM SCH (09:53)
--- NOTE | 2021-06-21 13:37 | P.CNPUL ---
History of Present Illness Consult date: 06/21/21 Requesting physician: Angelina Plummer Chief complaint: Coronavirus infection. History of present illness: Pulmonary/critical care consultation dated 06/21/2021. 31-year-old male who apparently presented to the emergency room on June 20, stating that he having menstrual cramping and menstrual bleeding. He apparently feels like he is a woman. He insists, that he does not have a penis. 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 All of this history is being obtained from the oleg provided by the ER physician. He apparently denied any suicidal or homicidal thoughts. He apparently was recently in the psychiatric [facility]ias for similar complaints. He denies any shortness of breath, cough, wheezing, phlegm production, fever, chills, headache, nausea, vomiting, diarrhea, or abdominal pain. For some reason, maybe protocol, the patient was tested for coronavirus and tested positive. He is not having any respiratory complaints, and his chest x-ray is absolutely normal. His medical history is apparently positive for GI bleed, gastroesophageal reflux disease, any stones, and gastritis. He obviously also has some significant psychiatric history including ADHD, anxiety, bipolar disorder, depression, and PTSD. He is also on every day current smoker. CBC is completely normal. Sodium 136, potassium 3.9, chlorides 104, CO2 21, anion gap 11, BUN 16, creatinine 0.65. X-ray was positive for amphetamines, benzodiazepines, and marijuana. Review of Systems REVIEW OF SYSTEMS: CONSTITUTIONAL: [Negative.] NEUROLOGIC: [ Negative.] HEENT: [ Negative.] CARDIAC: [Negative.] PULMONARY: [Negative.] GI: [Negative.] : Menstrual bleeding. RHEUMATOLOGIC: [ Negative.] IMMUNOLOGIC: [ Negative.] ENDOCRINE: [Negative. ] DERMATOLOGIC: [Negative.] Past Medical History Past Medical History: GERD/Reflux, GI Bleed, Renal Disease Additional Past Medical History / Comment(s): Gastritis, kidney stones, chrons, possible metabolic disorder History of Any Multi-Drug Resistant Organisms: None Reported Past Surgical History: Tonsillectomy Additional Past Surgical History / Comment(s): wisdom teeth removed. Past Anesthesia/Blood Transfusion Reactions: No Reported Reaction Additional Past Anesthesia/Blood Transfusion Reaction / Comment(s): NEVER HAD BLOOD TRANSFUSION Past Psychological History: ADD/ADHD, Anxiety, Bipolar, Depression, PTSD Additional Psychological History / Comment(s): PT TAKES PAXIL AND XANAX AND SEES A THERAPIST WHICH pt states doesnt seem to be helping. HE USES MEDICAL MARIJUANA TINCTURE WHICH HE DROPS ON HIS TONGUE, mixes in brownies or smokes it which helps with his crohns. OCD Smoking Status: Current every day smoker Past Alcohol Use History: None Reported Additional Past Alcohol Use History / Comment(s): pt states he is an alcoholic, he has drunk up to a gallon of vodka in a day. Patient is currently stating that he binge drinks and only occasionally. He is a smoker of a half a pack of cigarettes per day. He is currently living at home with his parents. 10/20/2020-Patient denies every drinking. states he was never a drinker Past Drug Use History: Marijuana Additional Drug Use History / Comment(s): pt has a medical marijuana card "for my PTSD and crohns" - Past Family History Sister(s) Additional Family Medical History / Comment(s): He has one sister that is healthy. He also has a 4-year-old daughter that is healthy. Father Family Medical History: GERD/Reflux Additional Family Medical History / Comment(s): Father is alive at age 60 recovered alcoholic with no major medical problems. Mother Additional Family Medical History / Comment(s): Mother is alive at age 58 recovered alcoholic and chronic back problems. Medications and Allergies Home Medications Medication Instructions Recorded Confirmed Type clonazePAM [KlonoPIN] 0.25 mg PO DAILY@1200 06/13/21 06/20/21 History clonazePAM [KlonoPIN] 0.5 mg PO DAILY 06/13/21 06/20/21 History clonazePAM [KlonoPIN] 1 mg PO HS 06/13/21 06/20/21 History Nicotine 14Mg/24Hr Patch [Habitrol] 1 patch TRANSDERM DAILY #30 patch 06/18/21 06/20/21 Rx Ziprasidone [Geodon] 20 mg PO DAILY 30 Days cap 06/18/21 06/20/21 Rx Ziprasidone [Geodon] 40 mg PO HS 30 Days cap 06/18/21 06/20/21 Rx lamoTRIgine [LaMICtal] 100 mg PO BID 30 Days tab 06/18/21 06/20/21 Rx Dextroamphetamine/Amphetamine 20 mg PO BID 06/20/21 06/20/21 History [Adderall Xr] Allergies Allergy/AdvReac Type Severity Reaction Status Date / Time aripiprazole [From Abilify] Allergy Unknown Verified 06/20/21 12:34 citalopram [From Celexa] Allergy Unknown Verified 06/20/21 12:34 divalproex sodium Allergy Unknown Verified 06/20/21 12:34 [From Depakote] paroxetine [From Paxil] Allergy Unknown Verified 06/20/21 12:34 sertraline [From Zoloft] Allergy Unknown Verified 06/20/21 12:34 temazepam [From Restoril] Allergy Unknown Verified 06/20/21 12:34 phenobarbital AdvReac Severe Rapid Verified 06/20/21 12:34 Heart Rate zolpidem tartrate AdvReac Unknown Altered Verified 06/20/21 12:34 [From Ambien] Mental Status estropipate [From Ogen 2.5] AdvReac Twitching Verified 06/20/21 12:34 of Legs haloperidol [From Haldol] AdvReac Agitation Verified 06/20/21 12:34 methylprednisolone AdvReac Altered Verified 06/20/21 12:34 [From Solu-Medrol] Mental Status vaylar Allergy Unknown Uncoded 10/20/20 18:10 Physical Exam Osteopathic Statement: *. No significant issues noted on an osteopathic structural exam other than those noted in the History and Physical/Consult. Vitals: Vital Signs Temp Pulse Pulse Resp BP BP Pulse Ox 06/21/21 09:19 98.6 F 81 18 137/67 97 06/21/21 06:37 97.9 F 83 16 115/67 99 06/21/21 02:57 97.7 F 75 17 139/76 100 Intake and Output 06/20/21 06/21/21 06/21/21 22:59 06:59 14:59 Other: # Voids 1 Weight 77.111 kg No acute distress, oriented 3. HEENT examination is grossly unremarkable. Neck supple. Full range of motion. No adenopathy thyromegaly or neck vein distention. Cardiovascular examination reveals regular rhythm rate. S1-S2 normal. No S3 or S4. No discernible murmur noted. Heart rate 71 bpm. Lungs reveal clear breath sounds. Breath sounds are equal bilaterally. No adventitious lung sounds including wheezes rhonchi or crackles. Abdomen soft bowel sounds are heard. No masses or tenderness. Extremities are intact. No cyanosis clubbing or edema. Skin is without rash or lesion. Neurologic examination is brief but nonfocal. Results - Laboratory Findings CBC and BMP: 06/20/21 22:29 06/20/21 22:29 Abnormal lab findings: Abnormal Labs 06/20/21 06/20/21 06/20/21 11:37 12:57 22:29 Sodium 136 L Carbon Dioxide 21 L Creatinine 0.65 L Ur Amphetamines Screen Detected H U Benzodiazepines Scrn Detected H U Marijuana (THC) Screen Detected H Coronavirus (PCR) Detected A - Diagnostic Findings Chest x-ray: image reviewed Assessment and Plan Assessment: Coronavirus infection, without obvious symptoms, and no evidence of coronavirus pneumonia. Significant history of psychiatric disorder including PTSD, anxiety, depression, and bipolar disorder. History of gastroesophageal reflux disease. History of kidney stones. History of gastritis/GI bleed. History of ongoing tobacco use with nicotine addiction. Plan: Plan dated 06/21/2021. The patient does not have any obvious symptoms or issues related to the lungs. The patient's chest x-ray is normal. His room air saturations are nearly 100%He denies any shortness of breath, cough, wheezing, or phlegm production. The pat ient's lab work, x-rays, and medications are all reviewed. Moving forward, we will see the patient only as needed. Time with Patient: Greater than 30
--- NOTE | 2021-06-21 14:02 | P.CN ---
Psychiatric Consult - . Consult date: 06/21/21 Consult:: 06/21/21 12:44 IDENTIFYING DATA: This patient is a 31-year-old male who currently lives with his mother and house has 1 kid and collects Social Security. REASON FOR REFERRAL: Psychiatry was consulted for psychiatric evaluation and treatment. HISTORY OF PRESENT ILLNESS: The patient presented to the hospital after recently being discharged from the mental health unit. Patient did apparently been complaining of menstrual cramping and bleeding. He also was mentioning that he does not have a penis according to ER report. And mentioned that he has a "large clitoris". Patient is UDS was positive for amphetamines benzodiazepines and THC. First patient was found to be covid-19 positive. Patient was seen on the medical floors for evaluation and treatment. He was laying in his bed today and claims that he came to the hospital 3 days ago for "an ALLERGIC reaction". He states that this was to "dust in the house". He appeared to have poor insight into his condition. He claims that he has been taking his medications at home. He claims that he is still recuperating from "the incident" however was fairly vague about what he was referring to. He identifies himself as a woman for the past 2-3 years. He claims he is discharged recently from the mental health unit. He was not responding to internal stimuli and was fairly goal oriented. Mildly delusional today. He claims that he is sleeping fairly at nighttime. He was agreeable of his Geodon increased. He is denying any depression or anxiety today. At this time patient denies any suicidal or homical ideations, intent or plan. Patient denies any auditory, visual hallucinations and denies any paranoia or delusions. Patients admits to using marijuana daily. He claims that he smokes cigarettes. He denies any other recreational drug use. PAST PSYCHIATRIC HISTORY: Patient has a a history of schizoaffective disorder and cannabis use disorder. Patient was previously on Geodon and Klonopin and Lamictal. Patient was last psychiatrically hospitalized 1 week ago on the mental health unit and discharged on 06/18. Patient denies any psychiatric outpatient follow-up. Patient denies any history of suicide attempts in the past. Past Medical History: GERD/Reflux, GI Bleed, Renal Disease Additional Past Medical History / Comment(s): Gastritis, kidney stones, chrons, possible metabolic disorder ALLERGIES: as per EMR. CHEMICAL DEPENDENCY HISTORY: as per HPI. FAMILY PSYCHIATRIC/SUBSTANCE USE HISTORY: He states that his mother has some form of mental illness. SOCIAL HISTORY: Patient was born and raised in [facility] [place]. He states that he completed up to 10th grade. He claims that he is not currently working. He states that he was in senior care in the past and was on probation. He currently lives with his mother and house as 1 and collects Social Security. MENTAL STATUS EXAM: General Appearance: Patient appears to be laying in bed, stated age is alert, attempts to cooperative. Patient appears to have fair hygiene and grooming wear ing hospital gown with fair eye contact. Behavior: Patient is calmly lying in bed without any agitated behavior. Speech: Patient's speech is fluent and nonpressured. Mood/Affect: Patient reports their mood is "ok", affect is congruent and constricted Suicidality/Homicidality: Patient denies having any suicidal or homicidal ideation intent or plan. Perceptions: Patient denies any visual hallucinations and denies any auditory hallucinations Though content/process: goal-directed. Refers to himself as a woman. Guarded and evasive. Memory and concentration: AOX3, grossly intact for the purposes of this session. Can spell "WORLD" backwards Judgment and insight: poor IMPRESSIONS: Schizoaffective disorder Cannabis use disorder Possible stimulant abuse PTSD Nicotine dependence PLAN: -At this time patient DOES meet criteria for inpatient psychiatric admission however due to patient being positive for covid-19, he will remian on the medical floors and continue with treatment until he is found a bed on a covid psych unit for transfer. -Would recommend the following medication changes/additions: Increase Geodon to 40 mg twice a day. Continue with Lamictal 100 mg twice a day. Change Klonopin to 1 mg twice a day for anxiety. -Switch Inspector reviewed patient's EKG, normal sinus rhythm, QTc interval 410 -Cannot leave AMA at this time. Patient will need a petition and certification if attempting to leave AMA. -facilities maintenance worker to provide patient with outpatient mental health/psychiatry resources for appropriate follow up upon discharge -Switch Inspector spoke with patient about substance abuse and the harmful effects on medical and mental health, patient verbally understood and agreed. -Continue looking into possible transfer to covid 19 psych unit -Communicated plan to patient's nurse -Will continue to follow along -Please contact with any questions. 06/21/21 13:55 06/21/21 13:58
[2021-06-21] MEDS ORDERED: clonazePAM 1 MG TAB PO SCH (21:00)
--- NOTE | 2021-06-21 22:45 | HP ---
HISTORY AND PHYSICAL DATE OF SERVICE: 06/21/2021. CHIEF COMPLAINT: Psychiatric symptoms and hallucination. HISTORY OF PRESENT ILLNESS: This 31-year-old gentleman with a past medical history of GERD, GI bleed, renal disease, gastritis, ADD, ADHD, anxiety, bipolar, depression, PTSD, apparently not being followed by a primary physician in the outpatient setting, apparently had gender dysphoric symptoms. The patient presented to ER with complaints of menstrual cramping as well as menstrual bleeding. The patient also insisted that he does not have a penis and a large grafted to his ovaries. The patient was found to be COVID-positive, and the patient was admitted for further evaluation and treatment. Otherwise, the patient is not hypoxic. Patient was also seen by Dr. Cardenas. No chest pain. No palpitations. No fever. PAST MEDICAL HISTORY: History of GI bleed, renal disease, gastritis, anxiety, bipolar, depression. MEDICATIONS: Home medications prior to admission include Lamictal, Klonopin, Geodon, nicotine,. Doses are reviewed. ALLERGIES: MULTIPLE ALLERGIES, including ABILIFY, CELEXA, DEPAKOTE, PAXIL, ZOLOFT, RESTORIL, AMBIEN,. FAMILY HISTORY: History of GERD in the family. SOCIAL HISTORY: History of smoking. History of THC. REVIEW OF SYSTEMS: ENT: No diminished hearing. No diminished vision. CARDIOVASCULAR SYSTEM: No angina, palpitations. RESPIRATORY SYSTEM: No cough, hemoptysis. GI: No nausea, vomiting, diarrhea. : No dysuria. NERVOUS SYSTEM: No numbness, weakness. ALLERGY/IMMUNOLOGY: No asthma or hay fever. MUSCULOSKELETAL: As mentioned earlier. HEMATOLOGY/ONCOLOGY: No history of anemia. ENDOCRINE: No history of diabetes or hypothyroidism. CONSTITUTIONAL: As mentioned earlier. DERMATOLOGY: Negative. RHEUMATOLOGY: Negative. PSYCHIATRY: As mentioned earlier. PHYSICAL EXAMINATION: Patient alert and oriented x3. Pulse 77, blood pressure 130/70, respiration 18, temperature 98.3, pulse ox 98% on room air. HEENT: Conjunctivae normal. NECK: No jugular venous distention. CARDIOVASCULAR: S1, S2 muffled. RESPIRATION: Breath sounds diminished at the bases. No rhonchi. No crackles. ABDOMEN: Soft. LEGS: No edema. No swelling. NERVOUS SYSTEM: Higher functions as mentioned earlier. Moves all 4 limbs. No focal motor or sensory deficit. LYMPHATICS: No lymph node palpable in neck, axillae or groin. SKIN: No ulcer, rash, bleeding. JOINTS: No active deforming arthropathy. LABS: CBC: Sodium 136. Drug screen was positive for amphetamine, benzodiazepine, THC, and COVID-19 is positive. ASSESSMENT: 1. Possible schizoaffective disorder , possible acute COVID-19 infection without any hypoxia or respiratory symptoms. 2. History of posttraumatic stress disorder. 3. History of nicotine dependence. 4. Hyponatremia. 5. Gender dysphoria. 6. History of THC. 7. FULL CODE. RECOMMENDATIONS AND DISCUSSION: In this 31-year-old woman who presented with multiple complex medical issues, we will monitor the patient closely, continue the current medications, continue with symptomatic treatment. The patient apparently does not meet the criteria for inpatient rehab. We will continue to monitor. Otherwise, prognosis is guarded. Further recommendations to follow. MMARTL / MILANN: [id number] / MTDD
[2021-06-21] MEDS ORDERED: clonazePAM 1 MG TAB ONE (23:59)
[2021-06-21] MEDS ORDERED: ZIPRASIDONE 40 MG CAP ONE (23:59)
[2021-06-21] MEDS ORDERED: lamoTRIgine 100 MG TAB ONE (23:59)
[2021-06-22] MEDS: clonazePAM 1 MG TAB PO SCH ×3 (05:23→19:31)
[2021-06-22] MEDS: lamoTRIgine 100 MG TAB PO SCH ×3 (05:25→19:31)
[2021-06-22] MEDS: ZIPRASIDONE 40 MG CAP PO SCH ×3 (05:25→19:31)
[2021-06-22] MEDS: NICOTINE 14MG/24HR PATCH TRANSDERM SCH (08:10)
[2021-06-22] MEDS: LORazepam 1 MG TAB PO PRN (13:40)
--- NOTE | 2021-06-22 14:00 | P.PN ---
Progress Note - Text Progress Note Date: 06/22/21 Interval History: Patient was seen today for psychiatric follow-up regarding patient's schizoaff ective disorder and psychiatric condition. Patient had his Geodon increased yesterday and continued on with his Lamictal and Klonopin. Patient's nurse states that patient has been doing better today overall with his condition. Patient was seen lying in his bed today he claims that overall his mood and anxiety of an improving. He appears to be more future oriented and more goal oriented in his thought process. He is not endorsing any delusions today. He states that he may have missed "one or 2 medications" at home which caused him to decompensate. He claims that he is able to sleep fairly last night and has a fair appetite today. At this time patient denies any suicidal or homical ideations, intent or plan. Patient denies any auditory, visual hallucinations and denies any paranoia or delusions. Patient denies any side effects from the medications and has been compliant with meds. Mental Status Exam: General Appearance: Patient appears to be laying in bed, stated age is alert, a ttempts to cooperative. Patient appears to have fair hygiene and grooming wearing hospital gown with fair eye contact. Behavior: Patient is calmly lying in bed without any agitated behavior. Speech: Patient's speech is fluent and nonpressured. Mood/Affect: Patient reports their mood is "better", affect is congruent and constricted Suicidality/Homicidality: Patient denies having any suicidal or homicidal ideation intent or plan. Perceptions: Patient denies any visual hallucinations and denies any auditory hallucinations Though content/process: goal-directed. More logical today. Not endorsing any delusions today. Memory and concentration: AOX3, grossly intact for the purposes of this session. Judgment and insight: Improving mildly Assessment Schizoaffective disorder Cannabis use disorder Possible stimulant abuse PTSD Nicotine dependence PLAN: -At this time patient DOES meet criteria for inpatient psychiatric admission however due to patient being positive for covid-19, he will remian on the medical floors and continue with treatment -Would recommend the following medication changes/additions: Geodon to 40 mg twice a day. Continue with Lamictal 100 mg twice a day. Change Klonopin to 1 mg twice a day for anxiety. -Concrete Pourer reviewed patient's EKG, normal sinus rhythm, QTc interval 410 -Cannot leave AMA at this time. Patient will need a petition and certification if attempting to leave AMA. -fabric worker supervisor to provide patient with outpatient mental health/psychiatry resources for appropriate follow up upon discharge -Concrete Pourer spoke with patient about substance abuse and the harmful effects on medical and mental health, patient verbally understood and agreed. -Communicated plan to patient's nurse -Will continue to follow along, likely will sign off tomorrow if patient is showing good improvement in his sx -Please contact with any questions.
--- NOTE | 2021-06-22 17:44 | PN ---
PROGRESS NOTE DATE OF SERVICE: 06/22/2027. This 31-year-old gentleman admitted with hallucinations and psychiatric illness is being closely monitored. Patient also was found to be COVID-19 positive. The patient is not hypoxic or having any symptoms of COVID-19. No chest pain. No palpitations. No fever. PHYSICAL EXAMINATION: Alert and oriented x3. Pulse is 96, blood pressure 115/65, respiration 18, temperature 98 degrees, pulse ox 99% on room air. HEENT: Conjunctivae normal. NECK: No jugular venous distention. CARDIOVASCULAR: S1, S2 muffled. RESPIRATION: Breath sounds diminished at the bases. No rhonchi. No crackles. ABDOMEN: Soft. NERVOUS SYSTEM: No focal deficit. LABS: CBC within normal limits. Sodium is 136. is noted. ASSESSMENT: 1. Possible schizoaffective disorder. 2. Possible acute COVID-19 infection without any hypoxia or respiratory symptoms. 3. History of posttraumatic stress disorder. 4. History of nicotine dependence. 5. Hyponatremia. 6. Possible gender dysphoria. 7. History of THC. 8. FULL CODE. RECOMMENDATIONS AND DISCUSSION: I recommend to continue current medications, continue with symptomatic treatment. Otherwise, closely follow with Psychiatry. Guarded prognosis. Continue the rest of the medications. Further recommendations to follow. MMODL / IJN: [id number] / DAVID
[2021-06-23 06:46] VITALS: RESP 17
[2021-06-23] MEDS: ZIPRASIDONE 40 MG CAP PO SCH (08:29)
[2021-06-23] MEDS: lamoTRIgine 100 MG TAB PO SCH (08:29)
[2021-06-23] MEDS: clonazePAM 1 MG TAB PO SCH (08:29)
[2021-06-23] MEDS: NICOTINE 14MG/24HR PATCH TRANSDERM SCH (08:29)
[2021-06-23] MEDS: LORazepam 1 MG TAB PO PRN (10:11)
--- NOTE | 2021-06-23 13:20 | P.PN ---
Progress Note - Text Progress Note Date: 06/23/21 Interval History: Patient was seen today for psychiatric follow-up regarding patient's schizoaff ective disorder and psychiatric condition. Patient has been taking his medications as prescribed. He claims that he did have a "panic attack" earlier and required an Ativan however states that overall his anxiety and mood up and improving significantly. He was asking about being discharged today. He claims that he is doing better overall. He denied any complaints overnight. He states he was able to sleep throughout the night. He appears to be more future oriented and more goal oriented in his thought process. He is not endorsing any delusions today. It's that he has a fair appetite today. At this time patient denies any suicidal or homical ideations, intent or plan. Patient denies any auditory, visual hallucinations and denies any paranoia or delusions. Patient denies any side effects from the medications and has been compliant with meds. Mental Status Exam: General Appearance: Patient appears to be laying in bed, stated age is alert, attempts to cooperative. Patient appears to have fair hygiene and grooming wearing hospital gown with fair eye contact. Behavior: Patient is calmly lying in bed without any agitated behavior. Speech: Patient's speech is fluent and nonpressured. Mood/Affect: Patient reports their mood is "better", affect is congruent Suicidality/Homicidality: Patient denies having any suicidal or homicidal ideation intent or plan. Perceptions: Patient denies any visual hallucinations and denies any auditory hallucinations Though content/process: goal-directed. More logical today. Not endorsing any delusions today. Memory and concentration: AOX3, grossly intact for the purposes of this session. Judgment and insight: Improving mildly Assessment Schizoaffective disorder Cannabis use disorder Possible stimulant abuse PTSD Nicotine dependence PLAN: -Would recommend the following medication changes/additions: Geodon to 40 mg twice a day. Continue with Lamictal 100 mg twice a day. continue with Klonopin 1 mg twice a day PRN for anxiety. -grocery worker to provide patient with outpatient mental health/psychiatry resources for appropriate follow up upon discharge -Claims Account Manager spoke with patient about substance abuse and the harmful effects on medical and mental health, patient verbally understood and agreed. -Communicated plan to patient's nurse and doctor -At this time psychiatry will sign off -Please contact with any questions.
[2021-06-23 13:42] VITALS: BP 114/67; PULSE 87; TEMP 98.2
--- NOTE | 2021-06-24 00:42 | P.DS ---
Providers Date of admission: 06/20/21 22:05 Attending physician: Angelina Plummer MD Consults: 06/20/21 22:07 Consult Physician Routine Consulting Provider: Brando Cardenas Consult Reason/Comments: covid 19 pneumonia Do you want consulting provider notified?: Yes Consult Physician Urgent Consulting Provider: Roge Martino Consult Reason/Comments: acute psychosis, covid 19 positive Do you want consulting provider notified?: Yes Primary care physician: Stated None Hospital Course: Diagnoses: She's affective disorder another sac illnesses and psychosis, present on admission. Significantly improved and patient was cleared for discharge by psychiatrist Postop Kopit infection and test while patient is asymptomatic. No pulmonary symptoms. No fever Hospital course: Patient with a pleasant 31 years old male with significant psych history including depression, bipolar, PTSD, schizoaffective disorder who was recently discharged from [facility]. presents with signs and symptoms thinking that he has men strual cycle and there is dependent his brain. Patient evaluated by psychiatric team and his medication were adjusted, he continued on home dose of Lamictal but added Geodon and Klonopin when necessary. Patient after that was cleared for discharge by psychiatrist today cosigned of the case. I discussed the case with Dr. Martino by myself who cleared him Patient also denies any other symptoms. No chest pain or dyspnea. No coughing. No fever. Abdominal pain. No nausea vomiting. No diarrhea. No urinary symptoms. Gait is normal. Patient evaluated by systems architect Patient was cleared for discharge by psychiatrist and systems architect Problems and management plan were discussed with the patient and he verbalized understanding and acceptance Patient was found stable and can be discharged home however he needs follow-up as an outpatient. Patient was instructed to follow up with PCP within one week and patient agrees Patient was instructed to follow up with his psychiatrist in one week, patient agrees and states that he has his contact information at home and that he will call and make appointment. Physical exam Gen: patient is a AAOx3, no distress CVS: S1-S2, RRR, no murmur Lungs: B/L CTA, no wheezing Abdomen: soft, no distention, no tenderness, positive bowel sounds Extremity: no leg edema or induration Time spent more than 35 minutes Patient Condition at Discharge: Fair Plan - Discharge Summary Discharge Rx Participant: No New Discharge Prescriptions: New Ziprasidone [Geodon] 40 mg PO DAILY 30 Days #30 cap clonazePAM [KlonoPIN] 1 mg PO BID PRN #5 tab PRN Reason: Anxiety Continue Ziprasidone [Geodon] 40 mg PO HS 30 Days cap Dextroamphetamine/Amphetamine [Adderall Xr] 20 mg PO BID Nicotine 14Mg/24Hr Patch [Habitrol] 1 patch TRANSDERM DAILY #30 patch lamoTRIgine [LaMICtal] 100 mg PO BID 30 Days tab Discontinued clonazePAM [KlonoPIN] 0.5 mg PO DAILY clonazePAM [KlonoPIN] 0.25 mg PO DAILY@1200 Ziprasidone [Geodon] 20 mg PO DAILY 30 Days cap clonazePAM [KlonoPIN] 1 mg PO HS Discharge Medication List Nicotine 14Mg/24Hr Patch [Habitrol] 1 patch TRANSDERM DAILY #30 patch 06/18/21 [Rx] Ziprasidone [Geodon] 40 mg PO HS 30 Days cap 06/18/21 [Rx] lamoTRIgine [LaMICtal] 100 mg PO BID 30 Days tab 06/18/21 [Rx] Dextroamphetamine/Amphetamine [Adderall Xr] 20 mg PO BID 06/20/21 [History] Ziprasidone [Geodon] 40 mg PO DAILY 30 Days #30 cap 06/23/21 [Rx] clonazePAM [KlonoPIN] 1 mg PO BID PRN #5 tab 06/23/21 [Rx] Follow up Appointment(s)/Referral(s): Regine Montgomery MD [REFERRING] - 1-2 Days None,Stated [Primary Care Provider] - 1-2 days Activity/Diet/Wound Care/Special Instructions: Activity Limited until follow-up Patient to follow-up with community mental health outpatient Take medications as prescribed Continue to quarantine and isolate and continue wearing face masks while out Encourage fluids and rest Monitor for fever and use Tylenol Continue current diet Discharge Disposition: HOME SELF-CARE
== END 2021-06-23 13:59 | disposition home or self-care (01) ==
LOC: EC 10:59 → 4SSUR 22:05 → UNDOADMIN 22:25 → 4SSUR 06-21 03:25
PROVIDERS: ADMIT Internal Medicine; ATTEND Internal Medicine
DX: F25.9 Schizoaffective disorder, unspecified (principal); U07.1 COVID-19; F31.9 Bipolar disorder, unspecified; F12.10 Cannabis abuse, uncomplicated; E87.1 Hypo-osmolality and hyponatremia; K21.9 Gastro-esophageal reflux disease without esophagitis; F17.210 Nicotine dependence, cigarettes, uncomplicated; F43.10 Post-traumatic stress disorder, unspecified; F42.9 Obsessive-compulsive disorder, unspecified; F90.9 Attention-deficit hyperactivity disorder, unspecified type; K50.90 Crohn's disease, unspecified, without complications; N28.9 Disorder of kidney and ureter, unspecified; Z79.899 Other long term (current) drug therapy; Z88.8 Allergy status to other drugs, medicaments and biological substances; Z88.9 Allergy status to unspecified drugs, medicaments and biological substances; Z88.2 Allergy status to sulfonamides; Z71.51 Drug abuse counseling and surveillance of drug abuser; Z87.442 Personal history of urinary calculi; Z87.19 Personal history of other diseases of the digestive system; Z81.1 Family history of alcohol abuse and dependence; Z81.8 Family history of other mental and behavioral disorders
CPT/HCPCS: 99285; 36415; 93005; 80053; 85025; 80306; 87635; 71045; G0378 ×4; S4990 ×3

== ENCOUNTER 2022-02-17 09:11 | Inpatient (IN) | payer MEDICAID, OTHER ==
--- NOTE | 2022-02-17 09:26 | ED ---
General Adult HPI - General Stated complaint: EPS eval Time Seen by Provider: 02/17/22 09:11 Source: patient, RN notes reviewed, old records reviewed - History of Present Illness Initial comments: This is a 31-year-old male with a past medical history significant for PTSD and ADHD and schizophrenia. According to mom he had his first and they got an injection about 3 weeks ago and it seems to 4 and off. Patient has become more more delusional and has hallucinations on a regular basis. 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 If you mention that he will start talking about how he is in the movie and all the characters in the movie and if you tell him that that is a cartoon removing he will insist that it is his life. Patient has not exhibited any suicidal homicidal ideations. Julia nt has not had any physical complaints. - Related Data Home Medications Medication Instructions Recorded Confirmed Dextroamphetamine/Amphetamine 20 mg PO BID 06/20/21 06/20/21 [Adderall Xr] Previous Rx's Medication Instructions Recorded Nicotine 14Mg/24Hr Patch [Habitrol] 1 patch TRANSDERM DAILY #30 patch 06/18/21 lamoTRIgine [LaMICtal] 100 mg PO BID 30 Days tab 06/18/21 Ziprasidone [Geodon] 40 mg PO DAILY 30 Days #30 cap 06/23/21 clonazePAM [KlonoPIN] 1 mg PO BID PRN #5 tab 06/23/21 Ziprasidone [Geodon] 40 mg PO HS 30 Days #30 cap 06/24/21 Allergies Allergy/AdvReac Type Severity Reaction Status Date / Time aripiprazole [From Abilify] Allergy Unknown Verified 06/20/21 12:34 citalopram [From Celexa] Allergy Unknown Verified 06/20/21 12:34 divalproex sodium Allergy Unknown Verified 06/20/21 12:34 [From Depakote] paroxetine [From Paxil] Allergy Unknown Verified 06/20/21 12:34 sertraline [From Zoloft] Allergy Unknown Verified 06/20/21 12:34 temazepam [From Restoril] Allergy Unknown Verified 06/20/21 12:34 phenobarbital AdvReac Severe Rapid Verified 06/20/21 12:34 Heart Rate zolpidem tartrate AdvReac Unknown Altered Verified 06/20/21 12:34 [From Ambien] Mental Status estropipate [From Ogen 2.5] AdvReac Twitching Verified 06/20/21 12:34 of Legs haloperidol [From Haldol] AdvReac Agitation Verified 06/20/21 12:34 methylprednisolone AdvReac Altered Verified 06/20/21 12:34 [From Solu-Medrol] Mental Status vaylar Allergy Unknown Uncoded 10/20/20 18:10 Review of Systems ROS Statement: Those systems with pertinent positive or pertinent negative responses have been documented in the HPI. ROS Other: All systems not noted in ROS Statement are negative. Past Medical History Past Medical History: GERD/Reflux, GI Bleed, Renal Disease Additional Past Medical History / Comment(s): Gastritis, kidney stones, chrons, possible metabolic disorder History of Any Multi-Drug Resistant Organisms: None Reported Past Surgical History: Tonsillectomy Additional Past Surgical History / Comment(s): wisdom teeth removed. Past Anesthesia/Blood Transfusion Reactions: No Reported Reaction Additional Past Anesthesia/Blood Transfusion Reaction / Comment(s): NEVER HAD BLOOD TRANSFUSION Past Psychological History: ADD/ADHD, Anxiety, Bipolar, Depression, PTSD Additional Psychological History / Comment(s): PT TAKES PAXIL AND XANAX AND SEES A THERAPIST WHICH pt states doesnt seem to be helping. HE USES MEDICAL MARIJUANA TINCTURE WHICH HE DROPS ON HIS TONGUE, mixes in brownies or smokes it which helps with his crohns. OCD Smoking Status: Current every day smoker Past Alcohol Use History: None Reported Additional Past Alcohol Use History / Comment(s): pt states he is an alcoholic, he has drunk up to a gallon of vodka in a day. Patient is currently stating that he binge drinks and only occasionally. He is a smoker of a half a pack of cigarettes per day. He is currently living at home with his parents. 10/20/2020-Patient denies every drinking. states he was never a drinker Past Drug Use History: Marijuana Additional Drug Use History / Comment(s): pt has a medical marijuana card "for my PTSD and crohns" - Past Family History Sister(s) Additional Family Medical History / Comment(s): He has one sister that is healthy. He also has a 4-year-old daughter that is healthy. Father Family Medical History: GERD/Reflux Additional Family Medical History / Comment(s): Father is alive at age 60 recovered alcoholic with no major medical problems. Mother Additional Family Medical History / Comment(s): Mother is alive at age 58 r ecovered alcoholic and chronic back problems. General Exam - General Exam Comments Initial Comments: GENERAL: Patient is well-developed and well-nourished. Patient is nontoxic and well- hydrated and is in no acute distress. ENT: Neck is soft and supple. No significant lymphadenopathy is noted. Oropharynx is clear. Moist mucous membranes. Neck has full range of motion without eliciting any pain. EYES: The sclera were anicteric and conjunctiva were pink and moist. Extraocular movements were intact and pupils were equal round and reactive to light. Eyelids were unremarkable. PULMONARY: Unlabored respirations. Good breath sounds bilaterally. CARDIOVASCULAR: There is a regular rate and rhythm without any murmurs gallops or rubs. ABDOMEN: Soft and nontender with normal bowel sounds. SKIN: Skin is clear with no lesions or rashes and otherwise unremarkable. NEUROLOGIC: Patient is alert and oriented at baseline. Cranial nerves II through XII are grossly intact. Motor and sensory are also intact. Normal speech, volume and content. Symmetrical smile. MUSCULOSKELETAL: Normal extremities with adequate strength and full range of motion. LYMPHATICS: No significant lymphadenopathy is noted PSYCHIATRIC: Patient is talking about how he is a particular character and a cartoon in [place] on the other characters or around him and it is not a cartoon that is part of his life and he doesn't appreciate people telling him as a cartoon. Course Vital Signs 02/17/22 09:19 Temperature 98.4 F Pulse Rate 88 Respiratory 18 Rate Blood Pressure 118/73 O2 Sat by Pulse 96 Oximetry Medical Decision Making - Lab Data Result diagrams: 02/17/22 09:36 02/17/22 09:36 Lab Results 02/17/22 02/17/22 02/17/22 Range/Units 09:36 09:36 09:36 WBC 7.3 (3.8-10.6) k/uL RBC 5.08 (4.30-5.90) m/uL Hgb 16.1 (13.0-17.5) gm/dL Hct 48.4 (39.0-53.0) % MCV 95.4 (80.0-100.0) fL MCH 31.7 (25.0-35.0) pg MCHC 33.2 (31.0-37.0) g/dL RDW 13.4 (11.5-15.5) % Plt Count 226 (150-450) k/uL MPV 7.5 Neutrophils % 64 % Lymphocytes % 25 % Monocytes % 6 % Eosinophils % 3 % Basophils % 0 % Neutrophils # 4.7 (1.3-7.7) k/uL Lymphocytes # 1.8 (1.0-4.8) k/uL Monocytes # 0.4 (0-1.0) k/uL Eosinophils # 0.2 (0-0.7) k/uL Basophils # 0.0 (0-0.2) k/uL Sodium 138 (137-145) mmol/L Potassium 4.4 (3.5-5.1) mmol/L Chloride 102 (98-107) mmol/L Carbon Dioxide 25 (22-30) mmol/L Anion Gap 11 mmol/L BUN 16 (9-20) mg/dL Creatinine 0.80 (0.66-1.25) mg/dL Est GFR (CKD-EPI)AfAm >90 (>60 ml/min/1.73 sqM) Est GFR (CKD-EPI)NonAf >90 (>60 ml/min/1.73 sqM) Glucose 96 (74-99) mg/dL Calcium 9.3 (8.4-10.2) mg/dL Total Bilirubin 0.2 (0.2-1.3) mg/dL AST 27 (17-59) U/L ALT 19 (4-49) U/L Alkaline Phosphatase 64 (38-126) U/L Ammonia (<30) umol/L Total Protein 7.0 (6.3-8.2) g/dL Albumin 4.8 (3.5-5.0) g/dL Urine Opiates Screen Detected H (NotDetected) Ur Oxycodone Screen Not Detected (NotDetected) Urine Methadone Screen Not Detected (NotDetected) Ur Propoxyphene Screen Not Detected (NotDetected) Ur Barbiturates Screen Not Detected (NotDetected) U Tricyclic Antidepress Not Detected (NotDetected) Ur Phencyclidine Scrn Not Detected (NotDetected) Ur Amphetamines Screen Detected H (NotDetected) U Methamphetamines Scrn Not Detected (NotDetected) U Benzodiazepines Scrn Detected H (NotDetected) Urine Cocaine Screen Not Detected (NotDetected) U Marijuana (THC) Screen Detected H (NotDetected) 02/17/22 Range/Units 09:36 WBC (3.8-10.6) k/uL RBC (4.30-5.90) m/uL Hgb (13.0-17.5) gm/dL Hct (39.0-53.0) % MCV (80.0-100.0) fL MCH (25.0-35.0) pg MCHC (31.0-37.0) g/dL RDW (11.5-15.5) % Plt Count (150-450) k/uL MPV Neutrophils % % Lymphocytes % % Monocytes % % Eosinophils % % Basophils % % Neutrophils # (1.3-7.7) k/uL Lymphocytes # (1.0-4.8) k/uL Monocytes # (0-1.0) k/uL Eosinophils # (0-0.7) k/uL Basophils # (0-0.2) k/uL Sodium (137-145) mmol/L Potassium (3.5-5.1) mmol/L Chloride (98-107) mmol/L Carbon Dioxide (22-30) mmol/L Anion Gap mmol/L BUN (9-20) mg/dL Creatinine (0.66-1.25) mg/dL Est GFR (CKD-EPI)AfAm (>60 ml/min/1.73 sqM) Est GFR (CKD-EPI)NonAf (>60 ml/min/1.73 sqM) Glucose (74-99) mg/dL Calcium (8.4-10.2) mg/dL Total Bilirubin (0.2-1.3) mg/dL AST (17-59) U/L ALT (4-49) U/L Alkaline Phosphatase (38-126) U/L Ammonia 17 (<30) umol/L Total Protein (6.3-8.2) g/dL Albumin (3.5-5.0) g/dL Urine Opiates Screen (NotDetected) Ur Oxycodone Screen (NotDetected) Urine Methadone Screen (NotDetected) Ur Propoxyphene Screen (NotDetected) Ur Barbiturates Screen (NotDetected) U Tricyclic Antidepress (NotDetected) Ur Phencyclidine Scrn (NotDetected) Ur Amphetamines Screen (NotDetected) U Methamphetamines Scrn (NotDetected) U Benzodiazepines Scrn (NotDetected) Urine Cocaine Screen (NotDetected) U Marijuana (THC) Screen (NotDetected) Disposition Clinical Impression: Acute exacerbation of chronic schizophrenia Disposition: ADMITTED IP TO THIS HOSP Referrals: Ayden Lu [Primary Care Provider] - 1-2 days Time of Disposition: 12:01
[2022-02-17 10:12] LABS: Basophils % (A) 0 %; Eosinophils # (A) 0.2 k/uL (0-0.7); Eosinophils % (A) 3 %; HCT 48.4 % (39.0-53.0); HGB 16.1 gm/dL (13.0-17.5); Lymphocytes # (A) 1.8 k/uL (1.0-4.8); Lymphocytes % (A) 25 %; MCH 31.7 pg (25.0-35.0); MCHC 33.2 g/dL (31.0-37.0); MCV 95.4 fL (80.0-100.0); Mean Platelet Volume 7.5; Monocytes # (A) 0.4 k/uL (0-1.0); Monocytes % (A) 6 %; Neutrophils # (A) 4.7 k/uL (1.3-7.7); Neutrophils % (A) 64 %; Platelet Count 226 k/uL (150-450); RBC 5.08 m/uL (4.30-5.90); RDW 13.4 % (11.5-15.5); WBC 7.3 k/uL (3.8-10.6)
[2022-02-17 10:23] LABS: ALT 19 U/L (4-49); AST 27 U/L (17-59); African American GFR (CKD) >90 (>60 ml/min/1.73 sqM); Albumin 4.8 g/dL (3.5-5.0); Alkaline Phosphatase 64 U/L (38-126); Anion Gap 11 mmol/L; Blood Urea Nitrogen 16 mg/dL (9-20); Calcium 9.3 mg/dL (8.4-10.2); Carbon Dioxide 25 mmol/L (22-30); Chloride 102 mmol/L (98-107); Glucose 96 mg/dL (74-99); Non-African American GFR(CKD) >90 (>60 ml/min/1.73 sqM); Potassium 4.4 mmol/L (3.5-5.1); Sodium 138 mmol/L (137-145); Total Bilirubin 0.2 mg/dL (0.2-1.3)
[2022-02-17 10:52] LABS: Amphetamine Screen,Urine Detected (NotDetected); Barbiturate Screen,Urine Not Detected (NotDetected); Benzodiazepines Screen,Urine Detected (NotDetected); Cocaine Screen,Urine Not Detected (NotDetected); Methadone Screen, Urine Not Detected (NotDetected); Opiate Screen,Urine Detected (NotDetected); Oxycodone Screen, Urine Not Detected (NotDetected); Phencyclidine Screen,Urine Not Detected (NotDetected); Tricyclic Antidepressant,Urine Not Detected (NotDetected); Urn Cannabinoid Scrn Detected (NotDetected)
[2022-02-17] MEDS ORDERED: ZIPRASIDONE 20 MG VIAL IM STA (11:59)
[2022-02-17] MEDS ORDERED: LORazepam 2 MG/ML INJ IM STA (11:59)
[2022-02-17] MEDS ORDERED: MAG HYDROX/AL HYDROX/SIMETH 30 ML CUP PO PRN (17:05)
[2022-02-17] MEDS ORDERED: ACETAMINOPHEN TAB 325 MG TAB PO PRN (17:05)
[2022-02-17] MEDS ORDERED: MAGNESIUM HYDROXIDE 2,400 MG/10 ML CUP PO PRN (17:05)
[2022-02-17] MEDS ORDERED: chlorproMAZINE 25 MG TAB PO PRN (17:07)
[2022-02-17] MEDS ORDERED: clonazePAM 1 MG TAB PO PRN (17:07)
[2022-02-17] MEDS ORDERED: chlorproMAZINE 25 MG/ML 2 ML AMP IM PRN (17:07)
[2022-02-17 17:18] VITALS: RESP 16
--- NOTE | 2022-02-18 00:38 | P.CONS ---
History of Present Illness - Reason for Consult Consult date: 02/17/22 - History of Present Illness The patient is a 31-year-old male with a PMH of multiple psychiatric illnesses who presented to the emergency room with hallucinations and delusions. The patient was admitted with mental health unit where he was seen and evaluated. The patient reports that he wanted his medications to be readjusted due to his worsening psychiatric symptoms. He denied any physical complaints are at time of interview. He denied expecting fever, chills, chest pain, shortness of breath, nausea, vomiting, abdominal pain, diarrhea. Laboratory evaluation was reviewed. The patient reported recreational marijuana use but denied tobacco or alcohol use. Review of systems: Pertinent positives and negatives as discussed in HPI, a complete review of systems was performed and all other systems are negative. Physical examination: General: non toxic, no distress, appears at stated age, normal weight Derm: no unusual rashes/lesions no unusual ecchymoses, warm, dry Head: atraumatic, normocephalic, symmetric Eyes: EOMI, no lid lag, anicteric sclera, pupils equal round reactive to light ENT: Nose and ears atraumatic, no thrush, no pharyngeal erythema Neck: No thyromegaly, no cervical lymphadenopathy, trachea midline, supple Mouth: no lip lesion, mucus membranes moist Cardiovascular: S1S2 reg, no murmur, positive posterior tibial pulse bilateral, no edema, capillary refill less than 2 seconds Lungs: CTA bilateral, no rhonchi, no rales , no accessory muscle use Abdominal: soft, nontender to palpation, no guarding, no appreciable organomegaly, normal bowel sounds Ext: no gross muscle atrophy, muscle strength 5 out of 5 in all 4 extremities grossly, no contractures, Neuro: CN II-XI grossly intact, light touch intact all 4 extremities, finger to nose within normal limits, Psych: Alert, oriented, appropriate affect Assessment/plan Marijuana abuse -Advised on importance of cessation Psychosis -As per psychiatry Thank you for allowing us to participate in the care of this patient. We will follow peripherally. Do not hesitate to contact us with questions. Someone can be reached from the [facility] hospitalist group at all hours of the day at [phone]. Past Medical History Past Medical History: GERD/Reflux, GI Bleed, Renal Disease Additional Past Medical History / Comment(s): Gastritis, kidney stones, chrons, possible metabolic disorder History of Any Multi-Drug Resistant Organisms: None Reported Past Surgical History: Tonsillectomy Additional Past Surgical History / Comment(s): wisdom teeth removed. Past Anesthesia/Blood Transfusion Reactions: No Reported Reaction Additional Past Anesthesia/Blood Transfusion Reaction / Comm: NEVER HAD BLOOD TRANSFUSION Past Psychological History: ADD/ADHD, Anxiety, Bipolar, Depression, PTSD Additional Psychological History / Comment(s): PT TAKES PAXIL AND XANAX AND SEES A THERAPIST WHICH pt states doesnt seem to be helping. HE USES MEDICAL MARIJUANA TINCTURE WHICH HE DROPS ON HIS TONGUE, mixes in brownies or smokes it which helps with his crohns. OCD Smoking Status: Current every day smoker Past Alcohol Use History: None Reported Additional Past Alcohol Use History / Comment(s): pt states he is an alcoholic, he has drunk up to a gallon of vodka in a day. Patient is currently stating that he binge drinks and only occasionally. He is a smoker of a half a pack of cigarettes per day. He is currently living at home with his parents. 10/20/2020-Patient denies every drinking. states he was never a drinker Past Drug Use History: Marijuana Additional Drug Use History / Comment(s): pt has a medical marijuana card "for my PTSD and crohns" - Past Family History Sister(s) Additional Family Medical History / Comment(s): He has one sister that is healthy. He also has a 4-year-old daughter that is healthy. Father Family Medical History: GERD/Reflux Additional Family Medical History / Comment(s): Father is alive at age 60 recovered alcoholic with no major medical problems. Mother Additional Family Medical History / Comment(s): Mother is alive at age 58 recovered alcoholic and chronic back problems. Medications and Allergies Home Medications Medication Instructions Recorded Confirmed Type Dextroamphetamine/Amphetamine 20 mg PO BID 06/20/21 02/17/22 History [Adderall Xr] Paliperidone IM [Invega Sustenna] 156 mg IM Q28D 02/17/22 02/17/22 History clonazePAM [KlonoPIN] 1 mg PO DAILY 02/17/22 02/17/22 History clonazePAM [KlonoPIN] 2 mg PO HS 02/17/22 02/17/22 History lamoTRIgine [LaMICtal] 100 mg PO DAILY@1400 02/17/22 02/17/22 History Allergies Allergy/AdvReac Type Severity Reaction Status Date / Time aripiprazole [From Abilify] Allergy Unknown Verified 02/17/22 13:01 cariprazine [From Vraylar] Allergy Unknown Verified 02/17/22 13:01 citalopram [From Celexa] Allergy Unknown Verified 02/17/22 13:01 divalproex sodium Allergy Unknown Verified 02/17/22 13:01 [From Depakote] paroxetine [From Paxil] Allergy Unknown Verified 02/17/22 13:01 sertraline [From Zoloft] Allergy Unknown Verified 02/17/22 13:01 temazepam [From Restoril] Allergy Unknown Verified 02/17/22 13:01 phenobarbital AdvReac Severe Rapid Verified 02/17/22 13:01 Heart Rate zolpidem tartrate AdvReac Unknown Altered Verified 02/17/22 13:01 [From Ambien] Mental Status estropipate [From Ogen 2.5] AdvReac Twitching Verified 02/17/22 13:01 of Legs haloperidol [From Haldol] AdvReac Agitation Verified 02/17/22 13:01 methylprednisolone AdvReac Altered Verified 02/17/22 13:01 [From Solu-Medrol] Mental Status Physical Exam Vitals: Vital Signs Temp Pulse Pulse Resp BP BP Pulse Ox 02/17/22 17:17 98.2 F 95 16 121/66 95 02/17/22 16:38 84 18 130/84 98 02/17/22 09:19 98.4 F 88 18 118/73 96 Intake and Output 02/17/22 02/17/22 02/18/22 14:59 22:59 06:59 Other: Weight 69.853 kg 69.853 kg Results CBC & Chem 7: 02/17/22 09:36 02/17/22 09:36 Labs: Abnormal Lab Results - Last 24 Hours (Table) 02/17/22 Range/Units 09:36 Urine Opiates Screen Detected H (NotDetected) Ur Amphetamines Screen Detected H (NotDetected) U Benzodiazepines Scrn Detected H (NotDetected) U Marijuana (THC) Screen Detected H (NotDetected)
[2022-02-18 07:18] VITALS: TEMP 97.7
[2022-02-18] MEDS: NICOTINE 14MG/24HR PATCH TRANSDERM SCH (08:53)
[2022-02-18 10:12] LABS: Chol/HDL Ratio 6.57 Ratio; LDL Cholesterol,Calculated 158.7 mg/dL (0.0-131.0)
--- NOTE | 2022-02-18 11:54 | P.HP ---
Psychiatric H&P - . H&P Date: 02/18/22 History & Physical: Allergies Allergy/AdvReac Type Severity Reaction Status Date / Time aripiprazole From Abilify Allergy Unknown Verified 02/17/22 13:01 cariprazine From Vraylar Allergy Unknown Verified 02/17/22 13:01 citalopram From Celexa Allergy Unknown Verified 02/17/22 13:01 divalproex sodium Allergy Unknown Verified 02/17/22 13:01 From Depakote paroxetine From Paxil Allergy Unknown Verified 02/17/22 13:01 sertraline From Zoloft Allergy Unknown Verified 02/17/22 13:01 temazepam From Restoril Allergy Unknown Verified 02/17/22 13:01 phenobarbital AdvReac Severe Rapid Verified 02/17/22 13:01 Heart Rate zolpidem tartrate AdvReac Unknown Altered Verified 02/17/22 13:01 From Ambien Mental Status estropipate From Ogen 2.5 AdvReac Twitching Verified 02/17/22 13:01 of Legs haloperidol From Haldol AdvReac Agitation Verified 02/17/22 13:01 methylprednisolone AdvReac Altered Verified 02/17/22 13:01 From Solu-Medrol Mental Status Vital Signs Temp 97.7 F 02/18/22 06:55 Pulse 104 H 02/18/22 06:55 Resp 16 02/18/22 06:55 BP 120/63 02/18/22 06:55 Pulse Ox 95 02/17/22 17:17 FiO2 Intake & Output 02/17/22 02/18/22 02/18/22 18:59 06:59 18:59 Weight 69.853 kg Laboratory Last Values WBC 7.3 k/uL (3.8-10.6) 02/17/22 09:36 RBC 5.08 m/uL (4.30-5.90) 02/17/22 09:36 Hgb 16.1 gm/dL (13.0-17.5) 02/17/22 09:36 Hct 48.4 % (39.0-53.0) 02/17/22 09:36 MCV 95.4 fL (80.0-100.0) 02/17/22 09:36 MCH 31.7 pg (25.0-35.0) 02/17/22 09:36 MCHC 33.2 g/dL (31.0-37.0) 02/17/22 09:36 RDW 13.4 % (11.5-15.5) 02/17/22 09:36 Plt Count 226 k/uL (150-450) 02/17/22 09:36 MPV 7.5 02/17/22 09:36 Neutrophils % 64 % 02/17/22 09:36 Lymphocytes % 25 % 02/17/22 09:36 Monocytes % 6 % 02/17/22 09:36 Eosinophils % 3 % 02/17/22 09:36 Basophils % 0 % 02/17/22 09:36 Neutrophils # 4.7 k/uL (1.3-7.7) 02/17/22 09:36 Lymphocytes # 1.8 k/uL (1.0-4.8) 02/17/22 09:36 Monocytes # 0.4 k/uL (0-1.0) 02/17/22 09:36 Eosinophils # 0.2 k/uL (0-0.7) 02/17/22 09:36 Basophils # 0.0 k/uL (0-0.2) 02/17/22 09:36 Sodium 138 mmol/L (137-145) 02/17/22 09:36 Potassium 4.4 mmol/L (3.5-5.1) 02/17/22 09:36 Chloride 102 mmol/L (98-107) 02/17/22 09:36 Carbon Dioxide 25 mmol/L (22-30) 02/17/22 09:36 Anion Gap 11 mmol/L 02/17/22 09:36 BUN 16 mg/dL (9-20) 02/17/22 09:36 Creatinine 0.80 mg/dL (0.66-1.25) 02/17/22 09:36 Est GFR (CKD-EPI)AfAm >90 (>60 ml/min/1.73 sqM) 02/17/22 09:36 Est GFR (CKD-EPI)NonAf >90 (>60 ml/min/1.73 sqM) 02/17/22 09:36 Glucose 96 mg/dL (74-99) 02/17/22 09:[address] Glu mg/dL 98 02/17/22 09:36 Hemoglobin A1c 5.0 % (0.0-6.0) 02/17/22 09:36 Calcium 9.3 mg/dL (8.4-10.2) 02/17/22 09:36 Total Bilirubin 0.2 mg/dL (0.2-1.3) 02/17/22 09:36 AST 27 U/L (17-59) 02/17/22 09:36 ALT 19 U/L (4-49) 02/17/22 09:36 Alkaline Phosphatase 64 U/L (38-126) 02/17/22 09:36 Ammonia 17 umol/L (<30) 02/17/22 09:36 Total Protein 7.0 g/dL (6.3-8.2) 02/17/22 09:36 Albumin 4.8 g/dL (3.5-5.0) 02/17/22 09:36 Triglycerides 122.00 mg/dL (0.00-149.00) 02/17/22 09:36 Cholesterol 216.00 mg/dL (0.00-200.00) H 02/17/22 09:36 LDL Cholesterol, Calc 158.7 mg/dL (0.0-131.0) H 02/17/22 09:36 VLDL Cholesterol, Calc 24.40 mg/dL (5.00-40.00) 02/17/22 09:36 HDL Cholesterol 32.90 mg/dL (40.00-60.00) L 02/17/22 09:36 Cholesterol/HDL Ratio 6.57 Ratio 02/17/22 09:36 Urine Opiates Screen Detected (NotDetected) H 02/17/22 09:36 Ur Oxycodone Screen Not Detected (NotDetected) 02/17/22 09:36 Urine Methadone Screen Not Detected (NotDetected) 02/17/22 09:36 Ur Propoxyphene Screen Not Detected (NotDetected) 02/17/22 09:36 Ur Barbiturates Screen Not Detected (NotDetected) 02/17/22 09:36 U Tricyclic Antidepress Not Detected (NotDetected) 02/17/22 09:36 Ur Phencyclidine Scrn Not Detected (NotDetected) 02/17/22 09:36 Ur Amphetamines Screen Detected (NotDetected) H 02/17/22 09:36 U Methamphetamines Scrn Not Detected (NotDetected) 02/17/22 09:36 U Benzodiazepines Scrn Detected (NotDetected) H 02/17/22 09:36 Urine Cocaine Screen Not Detected (NotDetected) 02/17/22 09:36 U Marijuana (THC) Screen Detected (NotDetected) H 02/17/22 09:36 Coronavirus (PCR) Not Detected (Not Detectd) 02/17/22 13:13 02/18/22 11:35 IDENTIFYING DATA: He is a 31-year-old single male admitted to the psychiatric involuntarily, currently lives with his parents in a house and collects Social Security HISTORY OF PRESENT ILLNESS: His mother brought him to the ED and reported a worsening of psychotic symptoms yesterday. Apparently patient was acting bizarre and delusional at home. Patient was seen laying in his bed today and agreeable to speak to magazine writer. Patient complained of feeling "sick". He was fairly guarded and evasive and fairly bizarre during conversation. He was also illogical and inappropriate at times in his answers. He spoke about Star Wars and also [employer]. He claims that his mom "brought me in to get 2 shots" and does not believe that he needs to be admitted to the hospital. He has poor insight and judgment. She was fairly focused on his medications being adjusted and also just having recently received a shot. He claims that he is taking Adderall Klonopin and other medication at home. Patient had poor Hygiene and grooming today. He knew his name in the hospital that he is an however does not know today's date. He is denying any auditory or visual hallucinations and denying any suicidal or homicidal ideations intent or plan. He bneleives that he does not need mental health treatment. PAST PSYCHIATRIC HISTORY: He has a complicated psychiatric history with multiple diagnoses, multiple psychiatric hospitalizations and multiple psychotropic medication trials. According to our medical he was diagnosed with ADHD and treated with psychostimulants beginning at age 7. He mental health problems at 12 and diagnosed with bipolar illness. He was diagnosed with PTSD after he witnessed the murder of a close friend. This is his sixth or seventh admission to our psychiatric unit. He was enrolled in [facility] outpatient mental health clinic under the care of Dr. Stevenson. After the clinic closure has been treated by a community psychiatrist. He was last admitted to [facility] in June 2021. Patient was discharged on Geodon and Lamictal and Klonopin. He denies any history of suicide attempts. PAST MEDICAL HISTORY: According to medical record he has history of GERD, GI bleed and kidney stones. ALLERGIES: As per EMR SUBSTANCE USE HISTORY: He has a history of an alcohol use disorder but has been abstinent for 2-3 years. He occasionally smokes marijuana and smokes a half pack of cigarettes daily. FAMILY PSYCHIATRIC/SUBSTANCE USE HISTORY: He has a strong family history of mental illness. A maternal uncle committed suicide. Several relative on the maternal side have been diagnosis was severe mental illness such as bipolar and schizophrenia. His sister has been diagnosed with an eating disorder and an anxiety disorder. LEGAL HISTORY: None SOCIAL HISTORY: He has a history of a developmental and/or learning disability. He was in special education throughout school. He left school in the 10th grade. He is single and has 1 child out of wedlock. He is unemployed and is so security disability. He lives with his parents. He spends most of his time alone with family. MENTAL STATUS EXAM: General Appearance: Patient appears to be disheveled in appearance, scratch steen on his arm, stated age is alert, inappropriate, bizarre. Patient appears to have poor hygiene and grooming. Behavior: Patient is seated without any agitated behavior. Inappropriate, restless Speech: Patient's speech is fluent and nonpressured. [place] Mood/Affect: Patient reports their mood is "okay", affect is congruent and constricted. Suicidality/Homicidality: Patient denies having any homicidal ideation intent or plan. Denies any suicidal ideations intent or plan Perceptions: Patient denies any visual hallucinations and denies any auditory hallucinations Though content/process: [place], poverty of content. Delusional, bizarre. Loose associations. Memory and concentration: AOX1, does not know today's date. Cannot spell "WORLD" backwards Judgment and insight: poor STRENGTHS/WEAKNESSES: strength is that patient is resilient. Weakness is that patient has poor judgment and is impulsive INTELLECT: average IMPRESSIONS: Schizoaffective disorder PTSD Developmental delay Alcohol use disorder in sustained remission. Nicotine dependence PLAN: -Patient is admitted under involuntary status to MHU for stabilization of psychiatric symptoms and safety. Patient has not signed adult voluntary form and medication consent and is placed in patient's chart. A second certification was completed and along with petition will be filed for court. -Medications : Will start patient on Geodon 20 mg twice a day for psychosis, Lamictal 25 mg twice a day for mood stabilization. Klonopin 0.5 mg 3 times a day when necessary for anxiety. -Ativan and Haldol PRN for agitation/aggression -Patient was informed of the risks, benefits and side effects of the medication and patient did not sign consent -Internal Medicine consult to perform medical evaluation and physical. -NRT - nicotine patch -SW on board for discharge planning. Encourage patient to participate in groups to work on coping skills. Will await deferral and court date.
[2022-02-18] MEDS: clonazePAM 0.5 MG TAB PO PRN (12:19)
[2022-02-18] MEDS: ZIPRASIDONE 20 MG CAP PO SCH ×2 (12:19→17:38)
[2022-02-18] MEDS: lamoTRIgine 25 MG TAB PO SCH ×2 (12:19→21:25)
[2022-02-18 12:42] VITALS: BP 138/69; PULSE 100
[2022-02-18] MEDS ORDERED: lamoTRIgine 100 MG TAB PO SCH (14:00)
[2022-02-19] MEDS: NICOTINE 14MG/24HR PATCH TRANSDERM SCH (08:08)
[2022-02-19] MEDS: ZIPRASIDONE 20 MG CAP PO SCH ×2 (08:09→17:06)
[2022-02-19] MEDS: lamoTRIgine 25 MG TAB PO SCH (08:09)
--- NOTE | 2022-02-19 11:26 | P.PN ---
Progress Note - Text Progress Note Date: 02/19/22 Interval History: Patient was seen lying in his bed this morning and was directable and agreeable to speak with senior mortgage underwriter in the office. Patient appears to be more alert today and cooperative with senior mortgage underwriter. He also appears to be mildly more appropriate with his answers. He appears to have improving delusions less preoccupied with him today. He needs to be concrete and have minimal insight into his condition. He states that he is feeling a bit tired when he taking it he takes the Geodon in the mor lilia however wishes to continue on taking it in the morning. He has mainly been isolative in his room and has been appearing for meals. He has not gone to many groups. He claims that his mood has been improving and states that he wants to go back to his mother's place upon discharge. At this time patient denies any suicidal or homical ideations, intent or plan. Patient denies any auditory, visual hallucinations. Patient denies any side effects from the medications and has been compliant with meds. Mental Status Exam: General Appearance: Patient appears to be disheveled in appearance, scratch steen on his arm, stated age is alert, more appropriate, less bizarre. Patient appears to have improving hygiene and grooming. Behavior: Patient is seated without any agitated behavior. more appropriate today during conversation. Speech: Patient's speech is fluent and nonpressured. [place] Mood/Affect: Patient reports their mood is "ok", affect is congruent and constricted. Suicidality/Homicidality: Patient denies having any homicidal ideation intent or plan. Denies any suicidal ideations intent or plan Perceptions: Patient denies any visual hallucinations and denies any auditory hallucinations Though content/process: [place], poverty of content. less bizarre. Memory and concentration: AOX1-2, does not know today's date Judgment and insight: chronically poor, improving mildly IMPRESSIONS: Schizoaffective disorder PTSD Developmental delay Alcohol use disorder in sustained remission Nicotine dependence Plan: -Patient continues to meet criteria for inpatient psychiatric admission for symptom stabilization and safety. Patient has [not] signed [adult voluntary form and] [medication consent] and was placed in patient's chart. -Medications: geodon 20 mg bid for psychosis, increase Lamictal 75 mg qhs for mood stabilization. Klonopin 0.5 mg 3 times a day when necessary for anxiety. -When necessary Ativan and Haldol for agitation/aggression. -NRT - [nicotine patch] -SW on board for discharge planning. Encouraged the patient to participate in milieu. deferral with program proposals coordinator today. likely discharge tomorrow.
[2022-02-19] MEDS ORDERED: lamoTRIgine 25 MG TAB PO SCH (21:00)
[2022-02-19] MEDS: clonazePAM 0.5 MG TAB PO PRN (21:21)
[2022-02-20] MEDS: ZIPRASIDONE 20 MG CAP PO SCH (08:20)
[2022-02-20] MEDS: NICOTINE 14MG/24HR PATCH TRANSDERM SCH (08:20)
--- NOTE | 2022-02-20 10:22 | P.DS ---
Providers Date of admission: 02/17/22 16:08 Expected date of discharge: 02/20/22 Attending physician: Roge Martino MD Consults: 02/17/22 17:05 Consult Physician Routine Consulting Provider: David Physician Consult Reason/Comments: H&P and medical Do you want consulting provider notified?: Yes Primary care physician: Ayden Lu - Discharge Diagnosis(es) (1) Schizoaffective disorder Current Visit: Yes Status: Acute Priority: High (2) PTSD (post-traumatic stress disorder) Current Visit: Yes Status: Acute Priority: Medium (3) Intellectual disability Current Visit: Yes Status: Acute Priority: Medium (4) Alcohol use disorder, moderate, in sustained remission Current Visit: Yes Status: Acute Priority: Low (5) Nicotine dependence Current Visit: Yes Status: Acute Priority: Low Hospital Course: Admission HPI: Admission note was completed by [automobile service writer] "[He is a 31-year-old single male admitted to the psychiatric involuntarily, currently lives with his parents in a house and collects Social Security. His mother brought him to the ED and reported a worsening of psychotic symptoms yesterday. Apparently patient was acting bizarre and delusional at home. Patient was seen laying in his bed today and agreeable to speak to automobile service writer. Patient complained of feeling "sick". He was fairly guarded and evasive and fairly bizarre during conversation. He was also illogical and inappropriate at times in his answers. He spoke about [place] [employer] and also [place]. He claims that his mom "brought me in to get 2 shots" and does not believe that he needs to be admitted to the hospital. He has poor insight and judgment. She was fairly focused on his medications being adjusted and also just having recently received a shot. He claims that he is taking Adderall Klonopin and other medication at home. Patient had poor Hygiene and grooming today. He knew his name in the hospital that he is an however does not know today's date. He is denying any auditory or visual hallucinations and denying any suicidal or homicidal ideations intent or plan. He bneleives th at he does not need mental health treatment.]" Hospital course: Upon admission to the unit patient was [admitted involuntarily on a petition and certificate and a second certificate was completed and faxed with the courts]. [Patient ended up signing a deferral with the managing attorney and agreeing to treatment.] Patient got along well with other patients on the unit and followed unit protocol. Patient was compliant with the medications and denied any side effects throughout hospital course. Patient was started on [geodon 20 mg bid for psychosis, increase lamictal to 100 mg qhs for mood stabilization, continue with klonopin as his home dose prn for anxiety]. Patient spoke of [his] stressors and engaged in therapy both group and individual. Patient was also seen by medical team for history and physical exam. [] Throughout the course of the hospitalization patient gradually improved with regards to [mood, anxiety] psychosis, sleep and [returned back to their baseline level of functioning]. On the day of discharge patient denied any suicidal or homicidal ideations intent or plan denied any auditory or visual hallucinations. Patient endorsed wanting to live for [his health and future.] The patient denied any access to guns or weapons. Patient denied any paranoia and did not endorse any delusions. Patient does have a significant history of substance abuse [and] was counseled on abstaining from all substances including alcohol and marijuana. patient elected to outpatine treatment for his substance use. Patient was also counseled on the medications and need for regular compliance and was encouraged to follow-up with their outpatient appointment for mental health and also for primary care. [Prior to discharge a family meeting will be arranged by geriatric social work professor to answer any questions and ensure safety upon discharge.] [employer] F[employer] also spoke with mother jody over the phone to discuss treatment and his condition and recommendations, she had sveeral questions but we talked about decreasing the marijuana use and also cutting back on the stimulants which are both likely contributing to his psychosis. Mental status exam: General Appearance: Patient appears to be [short in stature,]stated age is alert, pleasant, and cooperative. Patient is in no acute distress and has improved hygiene and grooming Behavior: Patient is calmly seated without any agitated behavior. Speech: Patient's speech is fluent and nonpressured. Mood/Affect: Patient reports their mood is "[good]", affect is congruent and euthymic. Suicidality/Homicidality: Patient denies having any suicidal or homicidal ideation intent or plan. Perceptions: Patient denies any auditory or visual hallucinations. Though content/process: There is no evidence of any delusional thought content and thought process is linear and goal-directed. Memory and concentration: AOX3, grossly intact for the purposes of this session. Can spell "WORLD" backwards correctly. Judgment and insight: [chronically poor, however has] improved with guarded prognosis Impression: Schizoaffective disorder PTSD alcohol use disorder moderate in sustained remission possible stimulant abuse cannabis abuse [Nicotine dependence] Plan: -Continue with discharge today as patient has improved and stabilized psychiatrically and is not currently an imminent threat to [himself] and/or others. [Patient will remain at chronically elevated risk for harm to self and/or others due to his impulsivity and substance use.] -Continue medications: can continue with klonopin 0.5 mg tid prn for anxiety, lamictal 100 mg qhs for mood stabilization, geodon 20 mg bid for psychosis. recommendedto mother and patient to cut back on adderrall in half at home. -Patient was counseled on the need for medication compliance and appropriate follow-up at mental health and also primary care for medical issues. Patient verbalized understanding and agreed. -Social work to [arrange for and conduct family meeting to ensure safety upon discharge and answer any questions/concerns.] Social work also to arrange for patients follow up appointments with [facility] for psychiatric care along with follow up with primary care provider. -Patient counseled on abstaining from recreational drugs and marijuana and alcohol. Was informed/educated on the adverse effects on their physical and mental health. [Patient verbally agreed and understood]. -Patient was instructed to return to the hospital or seek immediate medical care if their psychiatric or medical symptoms do worsen or reoccur. Allergies Allergy/AdvReac Type Severity Reaction Status Date / Time aripiprazole [From Abilify] Allergy Unknown Verified 02/17/22 13:01 cariprazine [From Vraylar] Allergy Unknown Verified 02/17/22 13:01 citalopram [From Celexa] Allergy Unknown Verified 02/17/22 13:01 divalproex sodium Allergy Unknown Verified 02/17/22 13:01 [From Depakote] paroxetine [From Paxil] Allergy Unknown Verified 02/17/22 13:01 sertraline [From Zoloft] Allergy Unknown Verified 02/17/22 13:01 temazepam [From Restoril] Allergy Unknown Verified 02/17/22 13:01 phenobarbital AdvReac Severe Rapid Verified 02/17/22 13:01 Heart Rate zolpidem tartrate AdvReac Unknown Altered Verified 02/17/22 13:01 [From Ambien] Mental Status estropipate [From Ogen 2.5] AdvReac Twitching Verified 02/17/22 13:01 of Legs haloperidol [From Haldol] AdvReac Agitation Verified 02/17/22 13:01 methylprednisolone AdvReac Altered Verified 02/17/22 13:01 [From Solu-Medrol] Mental Status Laboratory Results WBC 7.3 k/uL (3.8-10.6) 02/17/22 09:36 RBC 5.08 m/uL (4.30-5.90) 02/17/22 09:36 Hgb 16.1 gm/dL (13.0-17.5) 02/17/22 09:36 Hct 48.4 % (39.0-53.0) 02/17/22 09:36 MCV 95.4 fL (80.0-100.0) 02/17/22 09:36 MCH 31.7 pg (25.0-35.0) 02/17/22 09:36 MCHC 33.2 g/dL (31.0-37.0) 02/17/22 09:36 RDW 13.4 % (11.5-15.5) 02/17/22 09:36 Plt Count 226 k/uL (150-450) 02/17/22 09:36 MPV 7.5 02/17/22 09:36 Neutrophils % 64 % 02/17/22 09:36 Lymphocytes % 25 % 02/17/22 09:36 Monocytes % 6 % 02/17/22 09:36 Eosinophils % 3 % 02/17/22 09:36 Basophils % 0 % 02/17/22 09:36 Neutrophils # 4.7 k/uL (1.3-7.7) 02/17/22 09:36 Lymphocytes # 1.8 k/uL (1.0-4.8) 02/17/22 09:36 Monocytes # 0.4 k/uL (0-1.0) 02/17/22 09:36 Eosinophils # 0.2 k/uL (0-0.7) 02/17/22 09:36 Basophils # 0.0 k/uL (0-0.2) 02/17/22 09:36 Sodium 138 mmol/L (137-145) 02/17/22 09:36 Potassium 4.4 mmol/L (3.5-5.1) 02/17/22 09:36 Chloride 102 mmol/L (98-107) 02/17/22 09:36 Carbon Dioxide 25 mmol/L (22-30) 02/17/22 09:36 Anion Gap 11 mmol/L 02/17/22 09:36 BUN 16 mg/dL (9-20) 02/17/22 09:36 Creatinine 0.80 mg/dL (0.66-1.25) 02/17/22 09:36 Est GFR (CKD-EPI)AfAm >90 (>60 ml/min/1.73 sqM) 02/17/22 09:36 Est GFR (CKD-EPI)NonAf >90 (>60 ml/min/1.73 sqM) 02/17/22 09:36 Glucose 96 mg/dL (74-99) 02/17/22 09:[address] Glu mg/dL 98 02/17/22 09:36 Hemoglobin A1c 5.0 % (0.0-6.0) 02/17/22 09:36 Calcium 9.3 mg/dL (8.4-10.2) 02/17/22 09:36 Total Bilirubin 0.2 mg/dL (0.2-1.3) 02/17/22 09:36 AST 27 U/L (17-59) 02/17/22 09:36 ALT 19 U/L (4-49) 02/17/22 09:36 Alkaline Phosphatase 64 U/L (38-126) 02/17/22 09:36 Ammonia 17 umol/L (<30) 02/17/22 09:36 Total Protein 7.0 g/dL (6.3-8.2) 02/17/22 09:36 Albumin 4.8 g/dL (3.5-5.0) 02/17/22 09:36 Triglycerides 122.00 mg/dL (0.00-149.00) 02/17/22 09:36 Cholesterol 216.00 mg/dL (0.00-200.00) H 02/17/22 09:36 LDL Cholesterol, Calc 158.7 mg/dL (0.0-131.0) H 02/17/22 09:36 VLDL Cholesterol, Calc 24.40 mg/dL (5.00-40.00) 02/17/22 09:36 HDL Cholesterol 32.90 mg/dL (40.00-60.00) L 02/17/22 09:36 Cholesterol/HDL Ratio 6.57 Ratio 02/17/22 09:36 TSH 0.928 uIU/mL (0.350-5.500) 02/17/22 09:36 TSH Cancelled 02/17/22 09:36 Urine Opiates Screen Detected (NotDetected) H 02/17/22 09:36 Ur Oxycodone Screen Not Detected (NotDetected) 02/17/22 09:36 Urine Methadone Screen Not Detected (NotDetected) 02/17/22 09:36 Ur Propoxyphene Screen Not Detected (NotDetected) 02/17/22 09:36 Ur Barbiturates Screen Not Detected (NotDetected) 02/17/22 09:36 U Tricyclic Antidepress Not Detected (NotDetected) 02/17/22 09:36 Ur Phencyclidine Scrn Not Detected (NotDetected) 02/17/22 09:36 Ur Amphetamines Screen Detected (NotDetected) H 02/17/22 09:36 U Methamphetamines Scrn Not Detected (NotDetected) 02/17/22 09:36 U Benzodiazepines Scrn Detected (NotDetected) H 02/17/22 09:36 Urine Cocaine Screen Not Detected (NotDetected) 02/17/22 09:36 U Marijuana (THC) Screen Detected (NotDetected) H 02/17/22 09:36 Coronavirus (PCR) Not Detected (Not Detectd) 02/17/22 13:13 Vital Signs Temp 97.7 F 02/18/22 06:55 Pulse 100 02/18/22 12:19 Resp 16 02/18/22 06:55 BP 138/69 02/18/22 12:19 Pulse Ox 95 02/17/22 17:17 FiO2 Patient Condition at Discharge: Stable Plan - Discharge Summary Discharge Rx Participant: No New Discharge Prescriptions: New Nicotine 14Mg/24Hr Patch [Habitrol] 1 patch TRANSDERM DAILY 14 Days patch clonazePAM [KlonoPIN] 0.5 mg PO TID PRN tab PRN Reason: Anxiety lamoTRIgine [LaMICtal] 100 mg PO HS 30 Days tab Ziprasidone [Geodon] 20 mg PO AC-BID 30 Days cap Discontinued Dextroamphetamine/Amphetamine [Adderall Xr] 20 mg PO BID Paliperidone IM [Invega Sustenna] 156 mg IM Q28D clonazePAM [KlonoPIN] 1 mg PO DAILY clonazePAM [KlonoPIN] 2 mg PO HS lamoTRIgine [LaMICtal] 100 mg PO DAILY@1400 Discharge Medication List Nicotine 14Mg/24Hr Patch [Habitrol] 1 patch TRANSDERM DAILY 14 Days patch 02/04 03/27 [Rx] Ziprasidone [Geodon] 20 mg PO AC-BID 30 Days cap 02/20/22 [Rx] clonazePAM [KlonoPIN] 0.5 mg PO TID PRN tab 02/20/22 [Rx] lamoTRIgine [LaMICtal] 100 mg PO HS 30 Days tab 02/20/22 [Rx] Follow up Appointment(s)/Referral(s): Subhash Boss [Other] - 02/23/22 1:00 pm (02/23 @ 13:00 with Jose Chau 02/25 @ 09:[address] nikos Khan) Ayden Lu [Primary Care Provider] - 1-2 days Activity/Diet/Wound Care/Special Instructions: Activity and diet as tolerated. Avoid the use of street drugs and alcohol. Take all medications as prescribed. When you are in need of refills on your medications please contact your medical provider and/or outpatient psychiatrist to have this done. Please go to scheduled outpatient appointment for aftercare treatment. If symptoms return or become worse, call the crisis line at and/or go to the nearest emergency room for evaluation Discharge Disposition: HOME SELF-CARE
== END 2022-02-20 12:06 | disposition home or self-care (01) | DRG 885 ==
LOC: EC 09:11 → 3MHU 16:08
PROVIDERS: ADMIT Psychiatry & Neurology Psychiatry; ATTEND Psychiatry & Neurology Psychiatry
DX: F25.9 Schizoaffective disorder, unspecified (principal); K50.90 Crohn's disease, unspecified, without complications; F10.21 Alcohol dependence, in remission; F12.10 Cannabis abuse, uncomplicated; F17.210 Nicotine dependence, cigarettes, uncomplicated; F31.9 Bipolar disorder, unspecified; F43.10 Post-traumatic stress disorder, unspecified; F79 Unspecified intellectual disabilities; Z79.899 Other long term (current) drug therapy; Z81.8 Family history of other mental and behavioral disorders; Z87.442 Personal history of urinary calculi; Z20.822 Contact with and (suspected) exposure to COVID-19
CPT/HCPCS: 36415; 80053; 80061; 80306; 82075; 82140; 83036; 84443; 85025; 87635; 96372; 99285

== ENCOUNTER 2022-05-31 11:45 | Emergency (ER) | payer OTHER ==
[2022-05-31 11:54] VITALS: BP 103/68; PULSE 116; RESP 18; TEMP 98.8
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
[2022-05-31] MEDS ORDERED: OLANZapine 10 MG VIAL IM STA (12:25)
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
== END 2022-05-31 18:40 | disposition other institution (70) ==
LOC: EDBD → EC 11:45 → MERGE 11:45 → EC 18:40
DX: F23 Brief psychotic disorder (principal)
CPT/HCPCS: 70450; 72125; 82075; 87635; 96372; 99285

== ENCOUNTER 2022-05-31 18:07 | Inpatient (IN) | payer MEDICAID ==
[2022-05-31] MEDS ORDERED: MAG HYDROX/AL HYDROX/SIMETH 30 ML CUP PO PRN (18:15)
[2022-05-31] MEDS ORDERED: LORazepam 1 MG TAB PO PRN (18:15)
[2022-05-31] MEDS ORDERED: MAGNESIUM HYDROXIDE 2,400 MG/10 ML CUP PO PRN (18:15)
[2022-05-31] MEDS ORDERED: ACETAMINOPHEN TAB 325 MG TAB PO PRN (18:15)
[2022-05-31] MEDS ORDERED: LORazepam 2 MG/ML INJ IM PRN (18:19)
[2022-05-31] MEDS: ZIPRASIDONE 40 MG CAP PO SCH (23:23)
[2022-05-31] MEDS: lamoTRIgine 100 MG TAB PO SCH (23:23)
--- NOTE | 2022-06-01 02:24 | P.PN ---
Progress Note - Text Progress Note Date: 06/01/22 Attempted to see the patient at 2100 on 05/31 on the mental health unit. The patient was sedated and inappropriate for evaluation as per the mental health unit RN.
[2022-06-01] MEDS ORDERED: ZIPRASIDONE 20 MG VIAL IM STA (08:13)
[2022-06-01] MEDS ORDERED: OLANZapine 5 MG TAB PO PRN (11:41)
[2022-06-01] MEDS ORDERED: OLANZapine 10 MG VIAL IM PRN (11:41)
[2022-06-01] MEDS ORDERED: hydrOXYzine HCL 50 MG/ML 1 ML VIAL IM PRN (11:41)
--- NOTE | 2022-06-01 11:44 | P.HP ---
Psychiatric H&P - . H&P Date: 06/01/22 History & Physical: Allergies Allergy/AdvReac Type Severity Reaction Status Date / Time aripiprazole [From Abilify] Allergy Unknown Unknown Verified 05/31/22 19:09 cariprazine [From Vraylar] Allergy Unknown Unknown Verified 05/31/22 19:09 citalopram [From Celexa] Allergy Unknown Unknown Verified 05/31/22 19:09 divalproex sodium Allergy Unknown Unknown Verified 05/31/22 19:09 [From Depakote] paroxetine [From Paxil] Allergy Unknown Unknown Verified 05/31/22 19:09 sertraline [From Zoloft] Allergy Unknown Unknown Verified 05/31/22 19:09 temazepam [From Restoril] Allergy Unknown Unknown Verified 05/31/22 19:09 phenobarbital AdvReac Severe Rapid Verified 05/31/22 19:09 Heart Rate zolpidem tartrate AdvReac Unknown Altered Verified 05/31/22 19:09 [From Ambien] Mental Status estropipate [From Ogen 2.5] AdvReac Twitching Verified 05/31/22 19:09 of Legs haloperidol [From Haldol] AdvReac Agitation Verified 02/17/22 13:01 methylprednisolone AdvReac Altered Verified 02/17/22 13:01 [From Solu-Medrol] Mental Status Vital Signs Temp 97.2 F L 06/01/22 06:57 Pulse 93 06/01/22 06:57 Resp 16 06/01/22 06:57 BP 94/55 06/01/22 06:57 Pulse Ox 98 06/01/22 06:57 FiO2 Intake & Output 05/31/22 06/01/22 06/01/22 18:59 06:59 18:59 Weight 66.633 kg 66.633 kg 06/01/22 11:43 IDENTIFYING DATA: Patient is a 32-year-old, single, unemployed, on social security, male with significant history of polysubstance abuse and schizoaffective disorder presents her hospital under petition and certification for acute psychotic behavior. HPI: Patient presented to the hospital on 05/31/2022, under petition and certification for acute psychotic behavior. As per petition filled out by the patient's mother, the patient "was observed by his brother to have broken into the basement of the home, wearing makeup, and was stating that he was someone else. He reportedly found his Klonopin, Adderall, and took these medications. He initially denied taking these medications and got very upset leading up to an altercation with his family until police arrived." While in the emergency department, the patient was noted to be belligerent and often was nonsensical and stating that he was the "second most powerful person and the universe." UDS on admission was positive for opiates, amphetamines, benzodiazepines, and marijuana. Security was called. The patient was rambling and talking about his father Tim and not being safe. He reported that people were after him and he was very tearful and required redirection. He was given IM Ativan and Geodon and eventually calmed down. Upon assessment by this provider, the patient continues to respond to internal stimuli. He does express significant paranoia towards his father Tim. He is unable to prove fight any clear history of events leading up to this hospitalization. He is unable to fully participate in the psychiatric interview and wishes to be left alone at this time. He is under petition and certification however he is also under deferral status. He is admitted for further psychiatric evaluation and stabilization. PAST PSYCHIATRIC HISTORY: Patient has had previous diagnoses schizoaffective disorder, polysubstance abuse, and ADHD. The patient has been on numerous psychotropic medications and lists many as an ALLERGY. He is currently on a home regimen of Geodon, Lamictal, and Klonopin. He has had numerous psychiatric hospitalizations with the last one being on February 2022. No reported past suicide attempts. PMH: Past Medical History: GERD/Reflux, GI Bleed, Renal Disease Additional Past Medical History / Comment(s): Gastritis, kidney stones, chrons, possible metabolic disorder History of Any Multi-Drug Resistant Organisms: None Reported Past Surgical History: Tonsillectomy Additional Past Surgical History / Comment(s): wisdom teeth removed. Past Anesthesia/Blood Transfusion Reactions: No Reported Reaction Additional Past Anesthesia/Blood Transfusion Reaction / Comm: NEVER HAD BLOOD TRANSFUSION Past Psychological History: ADD/ADHD, Anxiety, Bipolar, Depression, PTSD Additional Psychological History / Comment(s): PT TAKES PAXIL AND XANAX AND SEES A THERAPIST WHICH pt states doesnt seem to be helping. HE USES MEDICAL MARIJUANA TINCTURE WHICH HE DROPS ON HIS TONGUE, mixes in brownies or smokes it which help s with his crohns. OCD Smoking Status: Current every day smoker Past Alcohol Use History: None Reported Additional Past Alcohol Use History / Comment(s): pt states he is an alcoholic, he has drunk up to a gallon of vodka in a day. Patient is currently stating that he binge drinks and only occasionally. He is a smoker of a half a pack of cigarettes per day. He is currently living at home with his parents. 10/20/2020-Patient denies every drinking. states he was never a drinker Past Drug Use History: Marijuana Additional Drug Use History / Comment(s): pt has a medical marijuana card "for my PTSD and crohns" ALLERGIES: As per HPI, she be noted the patient lists numerous psychotropic medications as ALLERGIES however it appears that many of these are adverse reactions and not so much a true ALLERGY. CHEMICAL DEPENDENCY HISTORY: Patient has a reported history of abusing stimulants. Furthermore he has a history of alcohol use disorder but is reportedly abstinent for 2-3 years. One half pack per day of tobacco use. Occasional marijuana use. UDS was positive for opiates, amphetamines, benzodiazepines, and marijuana. FAMILY PSYCHIATRIC/SUBSTANCE USE HISTORY: As per chart review, the patient has a significant family history mental illness. A maternal uncle committed suicide. Several relatives on his mother's side of the family have been diagnosed with severe mental illness such as bipolar or schizophrenia. His sister has been diagnosed and eating disorder and anxiety disorder. 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 He is single but has one child out of wedlock. He is unemployed and receives Social Security. He lives with his parents. He is noted to have a learning disability. MENTAL STATUS EXAM: General Appearance: Patient appears to be stated age is somnolent, and unable to cooperate. He appears to have disheveled hygiene and grooming. Behavior: Patient is sleeping without any agitated behavior. Speech: Patient's speech is nonspontaneous, soft, minimal. Mood/Affect: Patient reports their mood is "tired." Affect is somnolent. Suicidality/Homicidality: Unable to assess. Perceptions: Unable to assess. However patient appears to respond to internal stimuli. Though content/process: Patient appears to be responding to internal stimuli. Memory and concentration: Unable to assess. Appears to be grossly poor. Judgment and insight: poor STRENGTHS/WEAKNESSES: Unable to identify patient's strengths. Weakness is that the patient engages in substance abuse. INTELLECT: average IMPRESSIONS: Schizoaffective disorder PTSD Developmental delay Alcohol use disorder in sustained remission. Tobacco use disorder PLAN: -Patient is admitted under involuntary status to [facility] for stabilization of psychiatric symptoms and safety. The patient is currently under deferral status. -Medications : Geodon 40 mg by mouth twice a day for mood stabilization/psychosis. We will consider transitioning the patient to Prolixin with plans to transition him to Prolixin decanoate due to history of nonadherence with treatment. Lamictal 100 mg by mouth at bedtime for mood stabilization -Zyprexa and Vistaril PRN for agitation/aggression -Patient was informed of the risks, benefits and side effects of the medication however was unable to fully appreciate the informed consent conversation. -Internal Medicine consult to perform medical evaluation and physical. -NRT - nicotine patch -SW on board for discharge planning. Encourage patient to participate in groups to work on coping skills. 06/01/22 11:44
[2022-06-01] MEDS ORDERED: ASENAPINE 5 MG TAB SUBLINGUAL PRN (11:49)
[2022-06-01] MEDS: NICOTINE 14MG/24HR PATCH TRANSDERM SCH (14:26)
[2022-06-01] MEDS: ZIPRASIDONE 40 MG CAP PO SCH ×2 (14:26→17:18)
[2022-06-01] MEDS ORDERED: LORazepam 2 MG/ML INJ IM STA (17:21)
[2022-06-01] MEDS ORDERED: LORazepam 2 MG/ML INJ ONE (17:24)
[2022-06-01] MEDS: lamoTRIgine 100 MG TAB PO SCH (20:58)
[2022-06-02] MEDS: ZIPRASIDONE 40 MG CAP PO SCH (09:13)
[2022-06-02] MEDS: NICOTINE 14MG/24HR PATCH TRANSDERM SCH (09:14)
[2022-06-02 09:31] LABS: Basophils % (A) 0 %; Eosinophils # (A) 0.1 k/uL (0-0.7); Eosinophils % (A) 1 %; HCT 48.9 % (39.0-53.0); Lymphocytes # (A) 1.6 k/uL (1.0-4.8); Lymphocytes % (A) 17 %; MCH 30.8 pg (25.0-35.0); MCHC 32.8 g/dL (31.0-37.0); MCV 93.9 fL (80.0-100.0); Monocytes # (A) 0.4 k/uL (0-1.0); Monocytes % (A) 5 %; Neutrophils # (A) 7.1 k/uL (1.3-7.7); Neutrophils % (A) 76 %; Platelet Count 238 k/uL (150-450); WBC 9.4 k/uL (3.8-10.6)
[2022-06-02 09:37] LABS: ALT 21 U/L (4-49); AST 44 U/L (17-59); African American GFR (CKD) >90 (>60 ml/min/1.73 sqM); Albumin 4.7 g/dL (3.5-5.0); Alkaline Phosphatase 73 U/L (38-126); Anion Gap 13 mmol/L; Blood Urea Nitrogen 21 mg/dL (9-20); Calcium 9.3 mg/dL (8.4-10.2); Carbon Dioxide 22 mmol/L (22-30); Chloride 101 mmol/L (98-107); Glucose 61 mg/dL (74-99); Non-African American GFR(CKD) >90 (>60 ml/min/1.73 sqM); Potassium 4.4 mmol/L (3.5-5.1); Sodium 136 mmol/L (137-145); Total Protein 6.7 g/dL (6.3-8.2)
[2022-06-02] MEDS: hydrOXYzine pamoate 25 MG CAP PO PRN ×2 (10:15→17:06)
[2022-06-02] MEDS: flUPHENAZine 2.5 MG/ML (MDV) 10 ML VIAL IM PRN ×2 (10:15→16:56)
--- NOTE | 2022-06-02 11:09 | P.PN ---
Progress Note - Text Progress Note Date: 06/02/22 Interval History: Patient was seen wandering the hallways and was directable and agreeable to speak with manual writer in the office. Currently, the patient is presenting as grossly disorganized and psychotic. He appears to be responding to internal stimuli and is overtly paranoid and scared. The patient expresses numerous and nonsensical thoughts and ideas at this time. He reports that he needs to find a green dragon ball that is underneath the river in order to save the life of a female who is in danger. He also reports that "Shenron" is needed to come back and help. The patient is overtly fearful and requires much redirection. He was administered IM Prolixin due to his psychotic behavior. He is not reporting any suicidal or homicidal ideation, intention, and/or plan. He is denying any overt auditory or visual hallucinations. Mental Status Exam: General Appearance: Patient appears to be stated age is alert, directable, and cooperative. Behavior: Patient displayed psychomotor agitation. Patient is constantly pacing. Speech: Patient's speech is hyperverbal, repetitive, and monotone. Mood/Affect: Mood is "scared." Affect is congruent and fearful. Suicidality/Homicidality: Patient denies having any suicidal or homicidal ideation intent or plan. Perceptions: Patient denies any visual hallucinations and denies any auditory hallucinations Though content/process: The patient is endorsing flight of ideas, bizarre delusional thought content, and paranoia. Memory and concentration: Grossly poor Judgment and insight: Grossly poor Vital Signs Temp 97.2 F L 06/01/22 06:57 Pulse 93 06/01/22 06:57 Resp 16 06/01/22 06:57 BP 94/55 06/01/22 06:57 Pulse Ox 98 06/01/22 06:57 FiO2 Laboratory Results - Last 24 Hours 06/02/22 06/02/22 06/02/22 09:12 09:12 09:12 WBC 9.4 RBC 5.20 Hgb 16.0 Hct 48.9 MCV 93.9 MCH 30.8 MCHC 32.8 RDW 13.0 Plt Count 238 MPV 8.0 Neutrophils % 76 Lymphocytes % 17 Monocytes % 5 Eosinophils % 1 Basophils % 0 Neutrophils # 7.1 Lymphocytes # 1.6 Monocytes # 0.4 Eosinophils # 0.1 Basophils # 0.0 Sodium 136 L Potassium 4.4 Chloride 101 Carbon Dioxide 22 Anion Gap 13 BUN 21 H Creatinine 0.75 Est GFR (CKD-EPI)AfAm >90 Est GFR (CKD-EPI)NonAf >90 Glucose 61 L Calcium 9.3 Total Bilirubin 1.0 AST 44 ALT 21 Alkaline Phosphatase 73 Total Protein 6.7 Albumin 4.7 TSH 0.098 L Free T4 1.43 Assessment Schizoaffective disorder PTSD Developmental delay Alcohol use disorder in sustained remission. Tobacco use disorder Plan: -Patient continues to meet criteria for inpatient psychiatric admission for symptom stabilization and safety. Patient is currently under deferral status. We will need to inquire whether the patient has violated his deferral status. -Medications: Discontinue Geodon. We will start Prolixin 3 mg by mouth twice a day with plans to transition him to Prolixin decanoate due to a history of nonadherence with treatment. Lamictal 100 mg by mouth at bedtime for mood stabilization -When necessary Prolixin and Vistaril for agitation/aggression. -NRT - nicotine patch -SW on board for discharge planning. Encouraged the patient to participate in milieu.
[2022-06-02 15:31] LABS: Chol/HDL Ratio 3.29 Ratio
[2022-06-02] MEDS: lamoTRIgine 100 MG TAB PO SCH (20:31)
[2022-06-03] MEDS: NICOTINE 14MG/24HR PATCH TRANSDERM SCH (08:12)
--- NOTE | 2022-06-03 14:15 | P.PN ---
Progress Note - Text Progress Note Date: 06/03/22 Interval History: Patient was seen wandering the hallways and was directable and agreeable to speak with speech writer in the office. The patient is reporting that he is feeling significantly better. He is currently denying any suicidal or homicidal ideation, intention, and/or plan. He is not reporting any auditory or visual hallucinations. He is not reporting any overt delusional thought content. When asked about delusional thoughts yesterday, the patient states that he is unable to recall and he was saying and doing yesterday. He has been adherent with his medications and is not reporting any significant side effects at this time. He reports that he is eating and sleeping well. He is agreeable to starting Prolixin Decanoate tomorrow. Mental Status Exam: General Appearance: Patient appears to be stated age is alert, directable, and cooperative. Behavior: Patient displays slightly elevated psychomotor activity. Speech: Patient's speech is nonspontaneous, monotone, however with normal rate and volume. Mood/Affect: Mood is "much better." Affect is congruent and constricted Suicidality/Homicidality: Patient denies having any suicidal or homicidal ideation intent or plan. Perceptions: Patient denies any visual hallucinations and denies any auditory hallucinations Though content/process: The patient is not reporting any overt delusional thought content today. Thought process appears to be linear and logical in short conversation Memory and concentration: Mildly improving Judgment and insight: Mildly improving Vital Signs Temp 97.5 F L 06/03/22 06:40 Pulse 81 06/03/22 06:40 Resp 16 06/03/22 06:40 BP 101/57 06/03/22 06:40 Pulse Ox 100 06/02/22 17:07 FiO2 Laboratory Results - Last 24 Hours 06/02/22 06/02/22 06/02/22 09:12 09:12 09:12 WBC 9.4 RBC 5.20 Hgb 16.0 Hct 48.9 MCV 93.9 MCH 30.8 MCHC 32.8 RDW 13.0 Plt Count 238 MPV 8.0 Neutrophils % 76 Lymphocytes % 17 Monocytes % 5 Eosinophils % 1 Basophils % 0 Neutrophils # 7.1 Lymphocytes # 1.6 Monocytes # 0.4 Eosinophils # 0.1 Basophils # 0.0 Sodium 136 L Potassium 4.4 Chloride 101 Carbon Dioxide 22 Anion Gap 13 BUN 21 H Creatinine 0.75 Est GFR (CKD-EPI)AfAm >90 Est GFR (CKD-EPI)NonAf >90 [address] Glu mg/dL 103 Hemoglobin A1c 5.2 Calcium 9.3 Total Bilirubin 1.0 AST 44 ALT 21 Alkaline Phosphatase 73 Total Protein 6.7 Albumin 4.7 Triglycerides 48.90 Cholesterol 167.00 LDL Cholesterol Direct 104.00 LDL Cholesterol, Calc VLDL Cholesterol, Calc HDL Cholesterol 50.70 Cholesterol/HDL Ratio 3.29 TSH 0.098 L Assessment Schizoaffective disorder PTSD Developmental delay Alcohol use disorder in sustained remission. Tobacco use disorder Plan: -Patient continues to meet criteria for inpatient psychiatric admission for symptom stabilization and safety. Patient is currently under deferral status. We will need to inquire whether the patient has violated his deferral status. -Medications: Continue Prolixin 2 mg by mouth twice a day. We will transition to Prolixin Decanoate tomorrow. Lamictal 100 mg by mouth at bedtime for mood stabilization -When necessary Prolixin and Vistaril for agitation/aggression. -NRT - nicotine patch -SW on board for discharge planning. Encouraged the patient to participate in milieu.
[2022-06-03] MEDS: lamoTRIgine 100 MG TAB PO SCH (20:32)
[2022-06-03] MEDS: hydrOXYzine pamoate 25 MG CAP PO PRN (20:33)
--- NOTE | 2022-06-04 03:53 | P.CONS ---
History of Present Illness - Reason for Consult Consult date: 06/03/22 - History of Present Illness The patient is a 32-year-old male with a PMH of bipolar disorder who had been transferred to [facility] from outside facility where the patient was brought in due to erratic and aggressive behavior. The patient was admitted to the mental health unit where he was seen and evaluated. The patient reports that he had not been acting quite like himself and had broken down the door in his mom's house where he stays. He reports smoking 1 pack of cigarettes daily. Reports that his medications need to be changed so that he has better control over his bipolar disorder. Denies experiencing chest discomfort, shortness of breath, fever, chills, cough, nausea, vomiting, abdominal pain, diarrhea. Reports occasional marijuana use. Review of systems: Pertinent positives and negatives as discussed in HPI, a complete review of systems was performed and all other systems are negative. Physical examination: General: non toxic, no distress, appears at stated age, normal weight Derm: no unusual rashes/lesions, no unusual ecchymoses, warm, dry Head: atraumatic, normocephalic, symmetric Eyes: EOMI, no lid lag, anicteric sclera ENT: Nose and ears atraumatic, no thrush, no pharyngeal erythema Neck: trachea midline, supple Mouth: no lip lesion, mucus membranes moist Cardiovascular: S1S2 reg, no murmur, no edema Lungs: CTA bilateral, no rhonchi, no rales , no accessory muscle use Abdominal: soft, nontender to palpation, no guarding Ext: no gross muscle atrophy, no contractures, Neuro: No gross focal neuro deficits noted Psych: Alert, oriented, appropriate affect Assessment/plan Low TSH -Free T4 within normal limits Marijuana, tobacco abuse -Advised on importance of cessation Psychosis -As per psychiatry Thank you for allowing us to participate in the care of this patient. We will follow peripherally. Do not hesitate to contact us with questions. Someone can be reached from the [facility] hospitalist group at all hours of the day at [phone]. Past Medical History Past Medical History: GERD/Reflux, GI Bleed, Renal Disease Additional Past Medical History / Comment(s): Gastritis, kidney stones, chrons, possible metabolic disorder History of Any Multi-Drug Resistant Organisms: None Reported Past Surgical History: Tonsillectomy Additional Past Surgical History / Comment(s): wisdom teeth removed. Past Anesthesia/Blood Transfusion Reactions: No Reported Reaction Additional Past Anesthesia/Blood Transfusion Reaction / Comm: NEVER HAD BLOOD TRANSFUSION Smoking Status: Current every day smoker - Past Family History Sister(s) Additional Family Medical History / Comment(s): He has one sister that is healthy. He also has a 4-year-old daughter that is healthy. Father Family Medical History: GERD/Reflux Additional Family Medical History / Comment(s): Father is alive at age 60 recovered alcoholic with no major medical problems. Mother Additional Family Medical History / Comment(s): Mother is alive at age 58 recovered alcoholic and chronic back problems. Medications and Allergies Home Medications Medication Instructions Recorded Confirmed Type Nicotine 14Mg/24Hr Patch [Habitrol] 1 patch TRANSDERM DAILY 14 Days 02/20/22 05/31/22 Rx patch Ziprasidone [Geodon] 20 mg PO AC-BID 30 Days cap 02/20/22 05/31/22 Rx clonazePAM [KlonoPIN] 0.5 mg PO TID PRN tab 02/20/22 05/31/22 Rx lamoTRIgine [LaMICtal] 100 mg PO HS 30 Days tab 02/20/22 05/31/22 Rx Dextroamphetamine/Amphetamine 20 mg PO BID 05/31/22 05/31/22 History [Adderall Xr 20 mg Capsule] Ziprasidone [Geodon] 20 mg PO BID 05/31/22 05/31/22 History clonazePAM [KlonoPIN] 1 mg PO TID 05/31/22 05/31/22 History lamoTRIgine [LaMICtal] 100 mg PO DAILY 05/31/22 05/31/22 History Allergies Allergy/AdvReac Type Severity Reaction Status Date / Time aripiprazole [From Abilify] Allergy Unknown Unknown Verified 06/01/22 15:02 cariprazine [From Vraylar] Allergy Unknown Unknown Verified 06/01/22 15:02 citalopram [From Celexa] Allergy Unknown Unknown Verified 06/01/22 15:02 divalproex sodium Allergy Unknown Unknown Verified 06/01/22 15:02 [From Depakote] paroxetine [From Paxil] Allergy Unknown Unknown Verified 06/01/22 15:02 sertraline [From Zoloft] Allergy Unknown Unknown Verified 06/01/22 15:02 temazepam [From Restoril] Allergy Unknown Unknown Verified 06/01/22 15:02 phenobarbital AdvReac Severe Rapid Verified 06/01/22 15:02 Heart Rate zolpidem tartrate AdvReac Unknown Altered Verified 06/01/22 15:02 [From Ambien] Mental Status estropipate [From Ogen 2.5] AdvReac Twitching Verified 06/01/22 15:02 of Legs haloperidol [From Haldol] AdvReac Agitation Verified 06/01/22 15:02 methylprednisolone AdvReac Altered Verified 06/01/22 15:02 [From Solu-Medrol] Mental Status Physical Exam Vitals: Vital Signs Temp Pulse Resp BP 06/03/22 06:40 97.5 F L 81 16 101/57 Results CBC & Chem 7: 06/02/22 09:12 06/02/22 09:12
[2022-06-04] MEDS: NICOTINE 14MG/24HR PATCH TRANSDERM SCH (09:12)
[2022-06-04] MEDS ORDERED: fluPHENAZine DECANOATE 25 MG/ML 5ML MDV IM ONE (09:44)
--- NOTE | 2022-06-04 11:07 | P.PN ---
Progress Note - Text Progress Note Date: 06/04/22 Interval History: Patient was seen wandering the hallways and was directable and agreeable to speak with video games storywriter in the office. Patient continues to report that he is feeling well. He is currently denying any suicidal or homicidal ideation, intention, and/or plan. He is denying any auditory or visual hallucinations. He is denying any paranoia or other delusions. He has been adherent with his medication is not endorsing any significant side effects at this time. He is agreeable to the transition to Prolixin Decanoate today. He reports no issues regarding sleep or his appetite Mental Status Exam: General Appearance: Patient appears to be stated age is alert, directable, and cooperative. Behavior: Patient presents with normal psychomotor activity and appropriate eye contact. Speech: Patient's speech is more spontaneous however continues to be monotone. Normal rate and volume. Mood/Affect: Mood is "feeling good." Affect is congruent and euthymic Suicidality/Homicidality: Patient denies having any suicidal or homicidal ideation intent or plan. Perceptions: Patient denies any visual hallucinations and denies any auditory hallucinations Though content/process: The patient is not reporting any overt delusional thought content today. Thought process appears to be linear and logical in short conversation Memory and concentration: Mildly improving Judgment and insight: Mildly improving Vital Signs Temp 97.4 F L 06/04/22 06:38 Pulse 77 06/04/22 06:38 Resp 18 06/04/22 06:38 BP 99/58 06/04/22 06:38 Pulse Ox 98 06/04/22 06:38 FiO2 Plan: -Patient continues to meet criteria for inpatient psychiatric admission for symptom stabilization and safety. Patient is currently under deferral status. -Medications: Administer Prolixin decanoate 25 mg IM today. Lamictal 100 mg by mouth at bedtime for mood stabilization -When necessary Prolixin and Vistaril for agitation/aggression. -NRT - nicotine patch -SW on board for discharge planning. Encouraged the patient to participate in milieu.
[2022-06-04] MEDS: lamoTRIgine 100 MG TAB PO SCH (20:52)
[2022-06-05 06:48] VITALS: BP 101/57; PULSE 69; RESP 16; TEMP 97.6
[2022-06-05] MEDS: NICOTINE 14MG/24HR PATCH TRANSDERM SCH (07:44)
--- NOTE | 2022-06-05 12:40 | P.DS ---
Providers Date of admission: 05/31/22 18:07 Expected date of discharge: 06/05/22 Attending physician: Seymour Narayanan MD Consults: 05/31/22 18:15 Consult Physician Routine Consulting Provider: David Estrella Consult Reason/Comments: medical management Do you want consulting provider notified?: Yes Primary care physician: Stated None - Discharge Diagnosis(es) (1) Schizoaffective disorder Status: Acute Priority: High (2) Post traumatic stress disorder (PTSD) Status: Chronic Priority: Medium (3) Intellectual disability Status: Chronic Priority: Medium (4) Nicotine dependence Status: Chronic Priority: Low (5) Alcohol use disorder, moderate, in sustained remission Status: Chronic Priority: Low Hospital Course: Admission HPI: Patient is a 32-year-old, single, unemployed, on social security, male with significant history of polysubstance abuse and schizoaffective disorder presents her hospital under petition and certification for acute psychotic behavior. Patient presented to the hospital on 05/31/2022, under petition and certification for acute psychotic behavior. As per petition filled out by the patient's mother, the patient "was observed by his brother to have broken into the basement of the home, wearing makeup, and was stating that he was someone else. He reportedly found his Klonopin, Adderall, and took these medications. He initially denied taking these medications and got very upset leading up to an altercation with his family until police arrived." While in the emergency department, the patient was noted to be belligerent and often was nonsensical and stating that he was the "second most powerful person and the universe." UDS on admission was positive for opiates, amphetamines, benzodiazepines, and marijuana. Security was called. The patient was rambling and talking about his father Tim and not being safe. He reported that people were after him and he was very tearful and required redirection. He was given IM Ativan and Geodon and eventually calmed down. Upon assessment by this provider, the patient continues to respond to internal stimuli. He does express significant paranoia towards his father Tim. He is unable to prove fight any clear history of events leading up to this hospitalization. He is unable to fully participate in the psychiatric interview and wishes to be left alone at this time. He is under petition and certification however he is also under deferral status. He is admitted for further psychiatric evaluation and stabilization. Patient has had previous diagnoses schizoaffective disorder, polysubstance abuse, and ADHD. The patient has been on numerous psychotropic medications and lists many as an ALLERGY. He is currently on a home regimen of Geodon, Lamictal, and Klonopin. He has had numerous psychiatric hospitalizations with the last one being on February 2022. No reported past suicide attempts. Hospital course: Upon admission to the unit patient was initially to psychotic, responding to internal stimuli, and displaying elevated psychomotor activity. Patient was however directable and agreeable to commence treatment. Patient got along well with other patients on the unit and followed unit protocol. Patient was compliant with the medications and denied any side effects throughout hospital course. Patient was started on his home medication of Geodon and Lamictal however continues to display significant psychotic symptoms. He was therefore switched from Geodon to Prolixin with plans to transition him to Prolixin decanoate due to a history of nonadherence with treatment. As his Invega was administered and titrated, the patient despite significant improvement in regards to his target symptoms of psychosis. Patient spoke of his stressors and engaged in therapy both group and individual. Patient was also seen by medical team for history and physical exam. Throughout the course of the hospitalization, the patient tolerated medications well and became more linear and logical in conversation. He was administered Prolixin Decanoate 25 mg IM on 06/04/2022. He tolerated this medication well. On the day of discharge, the patient is not reporting any suicidal or homicidal ideation, intention, and/or plan. He is not reporting any auditory or visual hallucinations. He denies any paranoia or other delusions. The patient was counseled at length on the import of medication adherence appropriate outpatient follow-up. Furthermore, the patient does have significant history of substance abuse, including abusing his prescribed Adderall, and was counseled at great length on discontinuing this practice. Prior to discharge, family meeting will be arranged by social worker aide to answer any questions and ensure safety. Mental status exam: General Appearance: Patient appears to be stated age is alert, pleasant, and cooperative. Patient is in no acute distress and has fair hygiene and grooming Behavior: Patient is calmly seated without any agitated behavior. Speech: Patient's speech is fluent and nonpressured. Mood/Affect: Patient reports their mood is "much better", affect is congruent and euthymic. Suicidality/Homicidality: Patient denies having any suicidal or homicidal ideation intent or plan. Perceptions: Patient denies any auditory or visual hallucinations. Though content/process: There is no evidence of any delusional thought content and thought process is linear and goal-directed. more future oriented Memory and concentration: AOX3, grossly intact for the purposes of this session. Can spell "WORLD" backwards correctly. Judgment and insight: Improved with guarded prognosis Impression: Schizoaffective disorder PTSD Developmental delay Alcohol use disorder in sustained remission. Tobacco use disorder Plan: -Continue with discharge today as patient has improved and stabilized psychiatrically and is not currently an imminent threat to himself and/or others. Patient will remain at chronically elevated risk for harm to self and/or others due to his impulsivity and Adderall abuse. -Continue medications: Prolixin decanoate 25 mg IM was administered on 06/04/2022. Next dose due on 07/02/2022. Lamictal 100 mg by mouth at bedtime for mood stabilization -Patient was counseled on the need for medication compliance and appropriate follow-up at mental health and also primary care for medical issues. Patient verbalized understanding and agreed. -Social work to arrange for and conduct family meeting to ensure safety upon discharge and answer any questions/concerns. Social work also to arrange for patients follow up appointments with [facility] for psychiatric care along with follow up with primary care provider. -Patient counseled on abstaining from recreational drugs and marijuana and alcohol. Was informed/educated on the adverse effects on their physical and mental health. Patient verbally agreed and understood. Patient was offered substance abuse treatment however declined at this time. -Patient was instructed to return to the hospital or seek immediate medical care if their psychiatric or medical symptoms do worsen or reoccur. -Psychoeducation and supportive therapy provided to patient. Risks and benefits of pharmacological treatment versus the risks and benefits of nontreatment weight and discussed. Informed consent discussion held. Common side effects of psychotropics discussed such as, but not limited to headache, GI disturbance, sexual dysfunction, movement disorders, sedation, and orthostatic hypotension. Life threatening and blackbox warnings of prescribed medications also discussed. Potential risks of operating a vehicle or heavy machinery discussed with patient at length. Advised on importance of compliance and a reliable and responsible manner. Patient advised to review FDA consumer labeling of all medications prior to taking. Patient verbalized understanding of potential risks, and agrees with current treatment plan. Patient advised to medically contact physician/emergency personnel if any acute changes in condition occur. Vital Signs Temp 97.6 F 06/05/22 06:25 Pulse 69 06/05/22 06:25 Resp 16 06/05/22 06:25 BP 101/57 06/05/22 06:25 Pulse Ox 100 06/05/22 06:25 FiO2 Laboratory Results WBC 9.4 k/uL (3.8-10.6) 06/02/22 09:12 RBC 5.20 m/uL (4.30-5.90) 06/02/22 09:12 Hgb 16.0 gm/dL (13.0-17.5) 06/02/22 09:12 Hct 48.9 % (39.0-53.0) 06/02/22 09:12 MCV 93.9 fL (80.0-100.0) 06/02/22 09:12 MCH 30.8 pg (25.0-35.0) 06/02/22 09:12 MCHC 32.8 g/dL (31.0-37.0) 06/02/22 09:12 RDW 13.0 % (11.5-15.5) 06/02/22 09:12 Plt Count 238 k/uL (150-450) 06/02/22 09:12 MPV 8.0 06/02/22 09:12 Neutrophils % 76 % 06/02/22 09:12 Lymphocytes % 17 % 06/02/22 09:12 Monocytes % 5 % 06/02/22 09:12 Eosinophils % 1 % 06/02/22 09:12 Basophils % 0 % 06/02/22 09:12 Neutrophils # 7.1 k/uL (1.3-7.7) 06/02/22 09:12 Lymphocytes # 1.6 k/uL (1.0-4.8) 06/02/22 09:12 Monocytes # 0.4 k/uL (0-1.0) 06/02/22 09:12 Eosinophils # 0.1 k/uL (0-0.7) 06/02/22 09:12 Basophils # 0.0 k/uL (0-0.2) 06/02/22 09:12 Sodium 136 mmol/L (137-145) L 06/02/22 09:12 Potassium 4.4 mmol/L (3.5-5.1) 06/02/22 09:12 Chloride 101 mmol/L (98-107) 06/02/22 09:12 Carbon Dioxide 22 mmol/L (22-30) 06/02/22 09:12 Anion Gap 13 mmol/L 06/02/22 09:12 BUN 21 mg/dL (9-20) H 06/02/22 09:12 Creatinine 0.75 mg/dL (0.66-1.25) 06/02/22 09:12 Est GFR (CKD-EPI)AfAm >90 (>60 ml/min/1.73 sqM) 06/02/22 09:12 Est GFR (CKD-EPI)NonAf >90 (>60 ml/min/1.73 sqM) 06/02/22 09:12 Glucose 61 mg/dL (74-99) L 06/02/22 09:[address] Glu mg/dL 103 06/02/22 09:12 Hemoglobin A1c 5.2 % (0.0-6.0) 06/02/22 09:12 Calcium 9.3 mg/dL (8.4-10.2) 06/02/22 09:12 Total Bilirubin 1.0 mg/dL (0.2-1.3) 06/02/22 09:12 AST 44 U/L (17-59) 06/02/22 09:12 ALT 21 U/L (4-49) 06/02/22 09:12 Alkaline Phosphatase 73 U/L (38-126) 06/02/22 09:12 Total Protein 6.7 g/dL (6.3-8.2) 06/02/22 09:12 Albumin 4.7 g/dL (3.5-5.0) 06/02/22 09:12 Triglycerides 48.90 mg/dL (0.00-149.00) 06/02/22 09:12 Cholesterol 167.00 mg/dL (0.00-200.00) 06/02/22 09:12 LDL Cholesterol Direct 104.00 mg/dL (0.00-129.00) 06/02/22 09:12 LDL Cholesterol, Calc mg/dL (0.0-131.0) 06/02/22 09:12 VLDL Cholesterol, Calc mg/dL (5.00-40.00) 06/02/22 09:12 HDL Cholesterol 50.70 mg/dL (40.00-60.00) 06/02/22 09:12 Cholesterol/HDL Ratio 3.29 Ratio 06/02/22 09:12 TSH 0.098 mIU/L (0.465-4.680) L 06/02/22 09:12 Free T4 1.43 ng/dL (0.78-2.19) 06/02/22 09:12 Allergies Allergy/AdvReac Type Severity Reaction Status Date / Time aripiprazole [From Abilify] Allergy Unknown Unknown Verified 06/01/22 15:02 cariprazine [From Vraylar] Allergy Unknown Unknown Verified 06/01/22 15:02 citalopram [From Celexa] Allergy Unknown Unknown Verified 06/01/22 15:02 divalproex sodium Allergy Unknown Unknown Verified 06/01/22 15:02 [From Depakote] paroxetine [From Paxil] Allergy Unknown Unknown Verified 06/01/22 15:02 sertraline [From Zoloft] Allergy Unknown Unknown Verified 06/01/22 15:02 temazepam [From Restoril] Allergy Unknown Unknown Verified 06/01/22 15:02 phenobarbital AdvReac Severe Rapid Verified 06/01/22 15:02 Heart Rate zolpidem tartrate AdvReac Unknown Altered Verified 06/01/22 15:02 [From Ambien] Mental Status estropipate [From Ogen 2.5] AdvReac Twitching Verified 06/01/22 15:02 of Legs haloperidol [From Haldol] AdvReac Agitation Verified 06/01/22 15:02 methylprednisolone AdvReac Altered Verified 06/01/22 15:02 [From Solu-Medrol] Mental Status Patient Condition at Discharge: Stable Plan - Discharge Summary Discharge Rx Participant: No New Discharge Prescriptions: New lamoTRIgine [LaMICtal] 100 mg PO HS 30 Days tab fluPHENAZine decanoate [Prolixin Decanoate] 25 mg IM QMONTHLY #1 each Discontinued Nicotine 14Mg/24Hr Patch [Habitrol] 1 patch TRANSDERM DAILY 14 Days patch clonazePAM [KlonoPIN] 0.5 mg PO TID PRN tab PRN Reason: Anxiety lamoTRIgine [LaMICtal] 100 mg PO HS 30 Days tab lamoTRIgine [LaMICtal] 100 mg PO DAILY Dextroamphetamine/Amphetamine [Adderall Xr 20 mg Capsule] 20 mg PO BID Ziprasidone [Geodon] 20 mg PO AC-BID 30 Days cap Ziprasidone [Geodon] 20 mg PO BID clonazePAM [KlonoPIN] 1 mg PO TID Discharge Medication List fluPHENAZine decanoate [Prolixin Decanoate] 25 mg IM QMONTHLY #1 each 06/05/22 [Rx] lamoTRIgine [LaMICtal] 100 mg PO HS 30 Days tab 06/05/22 [Rx] Follow up Appointment(s)/Referral(s): Subhash Boss [Other] - 06/25/22 10:15 am (Psychiatrist appt 06/24/2022 at 12:45pm ) [facility] [NON-STAFF] - 1 Week Patient Instructions/Handouts: Schizoaffective Disorder (DC), Post Traumatic Stress Disorder (DC) Activity/Diet/Wound Care/Special Instructions: Avoid the use of street drugs and alcohol. Take all prescriptions as prescribed. When you are in need of refills on your medications, please contact your medical provider and/or outpatient psychiatrist to have this done. Please go to scheduled outpatient appointment for aftercare treatment. If symptoms return or become worse, call the crisis line at and/or go to the nearest emergency room for evaluation. Discharge Disposition: HOME SELF-CARE
== END 2022-06-05 10:40 | disposition home or self-care (01) | DRG 885 ==
LOC: 3MHU 18:07
PROVIDERS: ADMIT Psychiatry & Neurology Psychiatry; ATTEND Psychiatry & Neurology Psychiatry
DX: F25.9 Schizoaffective disorder, unspecified (principal); K50.90 Crohn's disease, unspecified, without complications; R45.851 Suicidal ideations; Z71.6 Tobacco abuse counseling; Z71.51 Drug abuse counseling and surveillance of drug abuser; F17.210 Nicotine dependence, cigarettes, uncomplicated; F81.9 Developmental disorder of scholastic skills, unspecified; F10.21 Alcohol dependence, in remission; F31.9 Bipolar disorder, unspecified; F42.9 Obsessive-compulsive disorder, unspecified; K29.70 Gastritis, unspecified, without bleeding; F43.10 Post-traumatic stress disorder, unspecified; F79 Unspecified intellectual disabilities; F90.9 Attention-deficit hyperactivity disorder, unspecified type; Z79.899 Other long term (current) drug therapy; Z87.442 Personal history of urinary calculi; Z88.8 Allergy status to other drugs, medicaments and biological substances
CPT/HCPCS: 80053; 80061; 83036; 83721; 84439; 84443; 85025

== ENCOUNTER → 2024-02-15 | Outpatient (CLI) | payer OTHER ==
[2024-02-15 14:53] LABS: Basophils # (A) 0.03 X 10*3/uL (0.00-0.10); Basophils % (A) 0.4 %; Eosinophils % (A) 1.2 %; HCT 46.1 % (39.6-50.0); HGB 15.5 g/dL (13.0-17.0); Lymphocytes # (A) 2.35 X 10*3/uL (0.90-5.00); Lymphocytes % (A) 28.7 %; MCH 30.5 pg (27.0-32.0); MCHC 33.6 g/dL (32.0-37.0); MCV 90.7 FL (80.0-97.0); Mean Platelet Volume 10.7 FL (9.5-12.2); Monocytes # (A) 0.54 X 10*3/uL (0.20-1.00); Monocytes % (A) 6.6 %; NRBC Per 100 WBC 0 X 10*3/uL (0.00-0.01); Neutrophils # (A) 5.12 X 10*3/uL (1.80-7.70); Neutrophils % (A) 62.4 %; Platelet Count 228 X 10*3/uL (140-440); RBC 5.08 X 10*6/uL (4.40-5.60); RDW 14.5 % (11.5-14.5)
[2024-02-15 15:01] LABS: Erythrocyte Sedimentation Rate 16 mm/Hr (0-15)
[2024-02-15 15:03] LABS: ALT 37 U/L (10-49); AST 29 U/L (14-35); Albumin 4.4 g/dL (3.8-4.9); Alkaline Phosphatase 97 U/L (41-126); Blood Urea Nitrogen 5.2 mg/dL (9.0-27.0); C Reactive Protein <0.30 mg/dL (0.00-0.80); Calcium 9.5 mg/dL (8.7-10.3); Carbon Dioxide 23.2 mmol/L (21.6-31.8); Chloride 102 mmol/L (96-109); Glucose 101 mg/dL (70-110); Potassium 3.7 mmol/L (3.5-5.5); Sodium 139 mmol/L (135-145); Total Bilirubin 0.3 mg/dL (0.3-1.2); Total Protein 6.4 g/dL (6.2-8.2)
== END | disposition home or self-care (01) ==
LOC: LABWHC1 10:29
PROVIDERS: ATTEND Internal Medicine Gastroenterology
DX: R19.7 Diarrhea, unspecified (principal)
CPT/HCPCS: 36415; 80053; 85025; 85652; 86140

== ENCOUNTER 2024-02-23 17:06 | Emergency (ER) | payer OTHER ==
[2024-02-23 17:35] VITALS: TEMP 98
--- NOTE | 2024-02-23 18:04 | ED ---
Abdominal Pain HPI - General Source: patient, RN notes reviewed Mode of arrival: ambulatory Limitations: no limitations <Annel Chacon - Last Filed: 02/23/24 18:03> <Liz Garg - Last Filed: 03/03/24 08:13> - General Chief Complaint: Abdominal Pain Stated Complaint: abd pain,rectal pain Time Seen by Provider: 02/23/24 18:03 - History of Present Illness Initial Comments: Quick note: 33-year-old male presented to the ER with a chief complaint of abdominal pain. He states that been ongoing for the past week with associated hematochezia and melena. He also reports he has been feeling weak. Denies any known fevers. (Annel Chacon) 33-year-old male presents emergency department with reported generalized abdominal pain. States that the pain has been going on but getting progressive ly worse over the past week. It is reported as periumbilical pain. Concerned that his stools were dark in color. He has had a history of GI bleeding before in the past and was scoped. Patient was told previously that he had Crohn's disease however he does not take any medications for this. He also reports to some bright red blood when he wipes. No rectal pain. No fevers. No vomiting. No other alleviating, precipitating or modifying factors (Liz Garg) - Related Data Home Medications Medication Instructions Recorded Confirmed ALPRAZolam [Xanax] 1 mg PO TID PRN 10/21/22 10/21/22 Atorvastatin [Lipitor] 20 mg PO HS 10/21/22 10/21/22 Azelaic Acid 1 applic TOPICAL DAILY 10/21/22 10/21/22 Propranolol [Inderal] 40 mg PO DAILY 10/21/22 10/21/22 fluPHENAZine decanoate [Prolixin 50 mg IM Q30D 10/21/22 10/21/22 Decanoate] traZODone HCL 200 mg PO HS 10/21/22 10/21/22 Previous Rx's Medication Instructions Recorded lamoTRIgine [LaMICtal] 100 mg PO HS 30 Days tab 06/05/22 Nicotine 21Mg/24Hr Patch [Habitrol] 1 patch TRANSDERM DAILY #30 patch 10/23/22 amantadine HCL [Amantadine] 100 mg PO AC-BID #60 capsule 10/23/22 diphenhydrAMINE [Benadryl] 25 mg PO TID PRN #90 capsule 10/23/22 rOPINIRole HCL [Requip] 0.25 mg PO HS #30 tab 10/23/22 Allergies Allergy/AdvReac Type Severity Reaction Status Date / Time aripiprazole [From Abilify] Allergy Unknown Unknown Verified 02/23/24 17:35 cariprazine [From Vraylar] Allergy Unknown Unknown Verified 02/23/24 17:35 citalopram [From Celexa] Allergy Unknown Unknown Verified 02/23/24 17:35 divalproex sodium Allergy Unknown Unknown Verified 02/23/24 17:35 [From Depakote] paroxetine [From Paxil] Allergy Unknown Unknown Verified 02/23/24 17:35 sertraline [From Zoloft] Allergy Unknown Unknown Verified 02/23/24 17:35 temazepam [From Restoril] Allergy Unknown Unknown Verified 02/23/24 17:35 phenobarbital AdvReac Severe Rapid Verified 02/23/24 17:35 Heart Rate zolpidem tartrate AdvReac Unknown Altered Verified 02/23/24 17:35 [From Ambien] Mental Status estropipate [From Ogen 2.5] AdvReac Twitching Verified 02/23/24 17:35 of Legs haloperidol [From Haldol] AdvReac Agitation Verified 02/23/24 17:35 methylprednisolone AdvReac Altered Verified 02/23/24 17:35 [From Solu-Medrol] Mental Status Review of Systems ROS Other: All systems not noted in ROS Statement are negative. <Annel Chacon - Last Filed: 02/23/24 18:03> ROS Other: All systems not noted in ROS Statement are negative. <Liz Garg - Last Filed: 03/03/24 08:13> ROS Statement: Those systems with pertinent positive or pertinent negative responses have been documented in the HPI. Past Medical History Past Medical History: GERD/Reflux, GI Bleed, Renal Disease, Unable to Obtain Additional Past Medical History / Comment(s): tremors History of Any Multi-Drug Resistant Organisms: None Reported Past Surgical History: Tonsillectomy, Unable to Obtain Additional Past Surgical History / Comment(s): wisdom teeth removed. Past Anesthesia/Blood Transfusion Reactions: No Reported Reaction Additional Past Anesthesia/Blood Transfusion Reaction / Comment(s): NEVER HAD BLOOD TRANSFUSION Past Psychological History: ADD/ADHD, Anxiety, Bipolar, Depression, PTSD Smoking Status: Current every day smoker, Unknown if ever smoked Past Alcohol Use History: None Reported, Unable to Obtain Past Drug Use History: Marijuana, Unable to Obtain - Past Family History Sister(s) Additional Family Medical History / Comment(s): He has one sister that is healthy. He also has a 4-year-old daughter that is healthy. Father Family Medical History: GERD/Reflux Additional Family Medical History / Comment(s): Father is alive at age 60 recovered alcoholic with no major medical problems. Mother Additional Family Medical History / Comment(s): Mother is alive at age 58 recovered alcoholic and chronic back problems. <Annel Chacon - Last Filed: 02/23/24 18:03> General Exam Limitations: no limitations <Annel Chacon - Last Filed: 02/23/24 18:03> General appearance: alert, in distress, other (wailing in pain) Head exam: Present: atraumatic, normocephalic, normal inspection Eye exam: Present: normal appearance, PERRL, EOMI. Absent: scleral icterus, conjunctival injection, periorbital swelling ENT exam: Present: normal exam, mucous membranes moist Neck exam: Present: normal inspection. Absent: tenderness, meningismus, lym phadenopathy Respiratory exam: Present: normal lung sounds bilaterally. Absent: respiratory distress, wheezes, rales, rhonchi, stridor Cardiovascular Exam: Present: regular rate, normal rhythm, normal heart sounds. Absent: systolic murmur, diastolic murmur, rubs, gallop, clicks GI/Abdominal exam: Present: soft, tenderness (periumbilical), normal bowel sounds. Absent: distended, guarding, rebound, rigid Extremities exam: Present: normal inspection, full ROM, normal capillary refill. Absent: tenderness, pedal edema, joint swelling, calf tenderness Back exam: Present: normal inspection Neurological exam: Present: alert, oriented X3, CN II-XII intact Psychiatric exam: Present: normal affect, normal mood Skin exam: Present: warm, dry, intact, normal color. Absent: rash <Liz Garg - Last Filed: 03/03/24 08:13> - General Exam Comments Initial Comments: Visual Physical Exam Vital signs reviewed General: Well-appearing, nontoxic, no acute distress. Head: Normocephalic, atraumatic Eyes: PERRLA, EOMI ENT: Airway patent Chest: Nonlabored breathing Skin: No visual rash, normal skin tone Neuro: Alert and oriented 3 Musculoskeletal: No gross abnormalities (Annel Chacon) Course Vital Signs 02/23/24 02/23/24 02/23/24 17:33 20:04 22:18 Temperature 98 F Pulse Rate 74 80 78 Respiratory 18 22 20 Rate Blood Pressure 110/68 114/74 113/69 O2 Sat by Pulse 97 97 97 Oximetry Medical Decision Making <Annel Chacon - Last Filed: 02/23/24 18:03> - Lab Data Result diagrams: 02/23/24 18:46 02/23/24 18:46 <Liz Garg - Last Filed: 03/03/24 08:13> - Medical Decision Making I performed the quick note portion of this chart. Electronically signed by Annel Chacon PA-C (Annel Chacon) Was pt. sent in by a medical professional or institution ([facility], [facility], urgent ca re, hospital, or shelter...) When possible be specific @ -No Did you speak to anyone other than the patient for history (EMS, parent, family, police, friend...)? What history was obtained from this source @ -No Did you review nursing and triage notes (agree or disagree)? Why? @ -I reviewed and agree with nursing and triage notes Were old charts reviewed (outside hosp., previous admission, EMS record, old EKG, old radiological studies, urgent care reports/EKG's, shelter records)? Report findings @ -No old charts were reviewed Differential Diagnosis (chest pain, altered mental status, abdominal pain women, abdominal pain men, vaginal bleeding, weakness, fever, dyspnea, syncope, headache, dizziness, GI bleed, back pain, seizure, CVA, palpatations, mental health, musculoskeletal)? @ -Differential Abdominal Pain Men: Appendicitis, cholecystitis, diverticulosis, ischemic bowel, pancreatitis, hepatitis, UTI, gastroenteritis, AAA, incarcerated hernia, bowel obstruction, constipation, inflammatory bowel, hepatitis, peptic ulcer disease, splenic infarction, perforated viscus, testicular torsion, this is not meant to be an all-inclusive list EKG interpreted by me (3pts min.). @ -Not done X-rays interpreted by me (1pt min.). @ -None done CT interpreted by me (1pt min.). @ -Yes and demonstrates no acute process U/S interpreted by me (1pt. min.). @ -None done What testing was considered but not performed or refused? (CT, X-rays, U/S, labs)? Why? @ -None What meds were considered but not given or refused? Why? @ -None Did you discuss the management of the patient with other professionals (professionals i.e. DrManuel, PA, [facility], lab, RT, psych nurse, oncology social work, glass presser, teacher, business liaison officer, wrapper caser)? Give summary @ -Spoke with Dr. Cope who agreed to admit the patient due to intractable pain. Patient was accepted by him however the patient then wanted to leave Was smoking cessation discussed for >3mins.? @ -No Was critical care preformed (if so, how long)? @ -No Were there social determinants of health that impacted care today? How? (Homelessness, low income, unemployed, alcoholism, drug addiction, transportation, low edu. Level, literacy, decrease access to med. care, half-way, rehab)? @ -No Was there de-escalation of care discussed even if they declined (Discuss DNR or withdrawal of care, Hospice)? DNR status @ -No What co-morbidities impacted this encounter? (DM, HTN, Smoking, COPD, CAD, Cancer, CVA, ARF, Chemo, Hep., AIDS, mental health diagnosis, sleep apnea, morbid obesity)? @ -None Was patient admitted / discharged? Hospital course, mention meds given and route, prescriptions, significant lab abnormalities, going to OR and other pertinent info. @ -Upon arrival patient seen and evaluated in room 27. Thorough history and physical exam was performed. IV access was established. Laboratory studies are conducted. Patient was administered pain medication. Rectal exam was performed. Patient's for CT of his abdomen pelvis. Results are discussed with the patient. Patient continues to have pain. He was given a second dose of pain medications and reevaluated. Reporting to me that the pain is still there. At this point I did recommend admission for further evaluation by surgery. Patient decided at this time that he wanted to go home. I highly recommended that he follow-up with his primary care doctor. Return for any new or worsening symptoms. Patient discharged in stable condition Undiagnosed new problem with uncertain prognosis? @ -No Drug Therapy requiring intensive monitoring for toxicity (Heparin, Nitro, Insulin, Cardizem)? @ -No Were any procedures done? @ -No Diagnosis/symptom? @ -Acute abdominal pain Acute, or Chronic, or Acute on Chronic? @ -Acute Uncomplicated (without systemic symptoms) or Complicated (systemic symptoms)? @ -Complicated Side effects of treatment? @ -No Exacerbation, Progression, or Severe Exacerbation? @ -No Poses a threat to life or bodily function? How? (Chest pain, [place], [place], pneumonia, PE, COPD, DKA, ARF, appy, cholecystitis, CVA, Diverticulitis, Homicidal, Suic idal, threat to staff... and all critical care pts) @ -No (Liz Garg) - Lab Data Lab Results 02/23/24 02/23/24 02/23/24 Range/Units 18:46 18:46 20:45 WBC 8.9 (3.8-10.6) k/uL RBC 4.87 (4.30-5.90) m/uL Hgb 15.0 (13.0-17.5) gm/dL Hct 45.9 (39.0-53.0) % MCV 94.2 (80.0-100.0) fL MCH 30.9 (25.0-35.0) pg MCHC 32.8 (31.0-37.0) g/dL RDW 14.1 (11.5-15.5) % Plt Count 206 (150-450) k/uL MPV 7.8 Neutrophils % 50 % Lymphocytes % 39 % Monocytes % 6 % Eosinophils % 3 % Basophils % 1 % Neutrophils # 4.5 (1.3-7.7) k/uL Lymphocytes # 3.5 (1.0-4.8) k/uL Monocytes # 0.5 (0-1.0) k/uL Eosinophils # 0.3 (0-0.7) k/uL Basophils # 0.1 (0-0.2) k/uL Sodium 140 (137-145) mmol/L Potassium 4.1 (3.5-5.1) mmol/L Chloride 109 H (98-107) mmol/L Carbon Dioxide 22 (22-30) mmol/L Anion Gap 9 mmol/L BUN 6 L (9-20) mg/dL Creatinine 0.63 L (0.66-1.25) mg/dL Est GFR (CKD-EPI)AfAm >90 (>60 ml/min/1.73 sqM) Est GFR (CKD-EPI)NonAf >90 (>60 ml/min/1.73 sqM) Glucose 74 (74-99) mg/dL Calcium 9.1 (8.4-10.2) mg/dL Total Bilirubin 0.5 (0.2-1.3) mg/dL AST 32 (17-59) U/L ALT 34 (4-49) U/L Alkaline Phosphatase 86 (38-126) U/L Total Protein 6.4 (6.3-8.2) g/dL Albumin 4.3 (3.5-5.0) g/dL Amylase 37 (30-110) U/L Lipase 23 (23-300) U/L Stool Occult Blood Negative (Negative) Disposition <Annel Chacon - Last Filed: 02/23/24 18:03> Is patient prescribed a controlled substance at d/c from ED?: No Time of Disposition: 21:56 <Liz Garg - Last Filed: 03/03/24 08:13> Clinical Impression: Abdominal pain Disposition: HOME SELF-CARE Condition: Stable Instructions (If sedation given, give patient instructions): Abdominal Pain (ED) Additional Instructions: Please follow-up with your primary care doctor and return for any new or worsening symptoms Referrals: Sumeet Mejias III, MD [Primary Care Provider] - 1-2 days
[2024-02-23 19:24] LABS: Basophils # (A) 0.1 k/uL (0-0.2); Basophils % (A) 1 %; Eosinophils # (A) 0.3 k/uL (0-0.7); Eosinophils % (A) 3 %; HCT 45.9 % (39.0-53.0); Lymphocytes # (A) 3.5 k/uL (1.0-4.8); Lymphocytes % (A) 39 %; MCH 30.9 pg (25.0-35.0); MCHC 32.8 g/dL (31.0-37.0); MCV 94.2 fL (80.0-100.0); Mean Platelet Volume 7.8; Monocytes # (A) 0.5 k/uL (0-1.0); Monocytes % (A) 6 %; Neutrophils # (A) 4.5 k/uL (1.3-7.7); Neutrophils % (A) 50 %; Platelet Count 206 k/uL (150-450); RBC 4.87 m/uL (4.30-5.90); RDW 14.1 % (11.5-15.5); WBC 8.9 k/uL (3.8-10.6)
[2024-02-23 19:39] LABS: ALT 34 U/L (4-49); AST 32 U/L (17-59); African American GFR (CKD) >90 (>60 ml/min/1.73 sqM); Albumin 4.3 g/dL (3.5-5.0); Alkaline Phosphatase 86 U/L (38-126); Amylase 37 U/L (30-110); Anion Gap 9 mmol/L; Blood Urea Nitrogen 6 mg/dL (9-20); Calcium 9.1 mg/dL (8.4-10.2); Carbon Dioxide 22 mmol/L (22-30); Chloride 109 mmol/L (98-107); Glucose 74 mg/dL (74-99); Lipase 23 U/L (23-300); Non-African American GFR(CKD) >90 (>60 ml/min/1.73 sqM); Potassium 4.1 mmol/L (3.5-5.1); Sodium 140 mmol/L (137-145); Total Bilirubin 0.5 mg/dL (0.2-1.3); Total Protein 6.4 g/dL (6.3-8.2)
[2024-02-23] MEDS: MORPHINE SULFATE 4 MG/ML SYRINGE IVP STA (20:02)
[2024-02-23] MEDS: HYDROmorphone 1 MG/ML 1 ML SYRINGE IVP STA (20:50)
--- NOTE | 2024-02-23 20:58 | CT ---
EXAMINATION TYPE: CT abdomen pelvis w con CT DLP: 1073.8 mGycm, Automated exposure control for dose reduction was used. DATE OF EXAM: 02/23/2024 8:25 PM COMPARISON: 06/09/2019 CLINICAL INDICATION:Male, 33 years old with history of abd pain, dark stool, hx gi bleed, ?hx crohns; abdominal pain, dark stool, prior GI bleed. TECHNIQUE: Axial CT abdomen pelvis w con;Sagittal and coronal reformats were created on a separate w orkstation. Contrast used:100 ml mL of Isovue 300 with IV Contrast, (none if empty) Oral contrast used: without Oral Contrast (none if empty) FINDINGS: LOWER CHEST: Unremarkable ABDOMEN LIVER: Unremarkable GALLBLADDER AND BILE DUCTS: Unremarkable. PANCREAS: Unremarkable. SPLEEN: Unremarkable. ADRENAL GLANDS: Unremarkable. KIDNEYS AND URETERS: No evidence of hydronephrosis or renal calculus. The ureters are unremarkable. PELVIS BLADDER: Unremarkable REPRODUCTIVE: Unremarkable. ABDOMEN & PELVIS STOMACH AND BOWEL: No evidence of bowel obstruction. No evidence for bowel wall thickening or active Crohn's disease. PERITONEUM/RETROPERITONEUM: No evidence of pneumoperitoneum or free fluid. VASCULATURE: No evidence of aortic aneurysm. MUSCULOSKELETAL: No acute osseous abnormalities LYMPH NODES: No gross evidence for lymphadenopathy. SOFT TISSUE/ABDOMINAL WALL: Fat-containing umbilical hernia. IMPRESSION: No evidence for gastrointestinal hemorrhage or acute process. No evidence for bowel wall thickening o r active Crohn's disease. No evidence for obstruction.
[2024-02-23 22:19] VITALS: BP 113/69; PULSE 78; RESP 20
== END 2024-02-23 22:19 | disposition home or self-care (01) ==
LOC: EEVIPCON 17:06 → EC 17:06
DX: R10.9 Unspecified abdominal pain (principal); F17.200 Nicotine dependence, unspecified, uncomplicated; F12.90 Cannabis use, unspecified, uncomplicated; Z88.8 Allergy status to other drugs, medicaments and biological substances
CPT/HCPCS: 36415; 80053; 82150; 83690; 85025; 82272; 74177; 99284; 96374; 96375; J2270; J1170; Q9967

== ENCOUNTER 2024-03-03 17:56 | Emergency (ER) | payer OTHER ==
[2024-03-03 18:03] VITALS: TEMP 97.5
[2024-03-03] MEDS: ONDANSETRON 4 MG/2 ML VIAL IVP STA (18:49)
--- NOTE | 2024-03-03 18:49 | ED ---
Recheck HPI - General Chief Complaint: Abdominal Pain Stated Complaint: Abd pain Time Seen by Provider: 03/03/24 18:20 Source: patient, RN notes reviewed, old records reviewed Mode of arrival: ambulatory Limitations: no limitations - History of Present Illness Initial Comments: This is a 33-year-old male to the ER for evaluation. He presents today for evaluation regards to abdominal pain this is a recheck for abdominal pain. Patient had a recent ER visit about a week ago and pain has been episodic since but progressively worse today. No fevers no travels no sick contacts difficulty with incontinence recently MD Complaint: other (Abdominal pain) -: week(s) Returns Today for: persistent/worsening pain related to initial visit Associated Symptoms: none Treatments Prior to Arrival: Given Pain Meds on - Related Data Home Medications Medication Instructions Recorded Confirmed ALPRAZolam [Xanax] 1 mg PO TID PRN 10/21/22 10/21/22 Atorvastatin [Lipitor] 20 mg PO HS 10/21/22 10/21/22 Azelaic Acid 1 applic TOPICAL DAILY 10/21/22 10/21/22 Propranolol [Inderal] 40 mg PO DAILY 10/21/22 10/21/22 fluPHENAZine decanoate [Prolixin 50 mg IM Q30D 10/21/22 10/21/22 Decanoate] traZODone HCL 200 mg PO HS 10/21/22 10/21/22 Previous Rx's Medication Instructions Recorded lamoTRIgine [LaMICtal] 100 mg PO HS 30 Days tab 06/05/22 Nicotine 21Mg/24Hr Patch [Habitrol] 1 patch TRANSDERM DAILY #30 patch 10/23/22 amantadine HCL [Amantadine] 100 mg PO AC-BID #60 capsule 10/23/22 diphenhydrAMINE [Benadryl] 25 mg PO TID PRN #90 capsule 10/23/22 rOPINIRole HCL [Requip] 0.25 mg PO HS #30 tab 10/23/22 HYDROcodone/APAP 5-325MG [Bonaire 1 tab PO Q6HR PRN #12 tab 03/03/24 5-325] Allergies Allergy/AdvReac Type Severity Reaction Status Date / Time aripiprazole [From Abilify] Allergy Unknown Unknown Verified 03/03/24 18:04 cariprazine [From Vraylar] Allergy Unknown Unknown Verified 03/03/24 18:04 citalopram [From Celexa] Allergy Unknown Unknown Verified 03/03/24 18:04 divalproex sodium Allergy Unknown Unknown Verified 03/03/24 18:04 [From Depakote] paroxetine [From Paxil] Allergy Unknown Unknown Verified 03/03/24 18:04 sertraline [From Zoloft] Allergy Unknown Unknown Verified 03/03/24 18:04 phenobarbital AdvReac Severe Rapid Verified 03/03/24 18:04 Heart Rate zolpidem tartrate AdvReac Unknown Altered Verified 03/03/24 18:04 [From Ambien] Mental Status estropipate [From Ogen 2.5] AdvReac Twitching Verified 03/03/24 18:04 of Legs haloperidol [From Haldol] AdvReac Agitation Verified 03/03/24 18:04 methylprednisolone AdvReac Altered Verified 03/03/24 18:04 [From Solu-Medrol] Mental Status Review of Systems ROS Statement: Those systems with pertinent positive or pertinent negative responses have been documented in the HPI. ROS Other: All systems not noted in ROS Statement are negative. Past Medical History Past Medical History: GERD/Reflux, GI Bleed, Renal Disease, Unable to Obtain Additional Past Medical History / Comment(s): tremors History of Any Multi-Drug Resistant Organisms: None Reported Past Surgical History: Tonsillectomy, Unable to Obtain Additional Past Surgical History / Comment(s): wisdom teeth removed. Past Anesthesia/Blood Transfusion Reactions: No Reported Reaction Additional Past Anesthesia/Blood Transfusion Reaction / Comment(s): NEVER HAD BLOOD TRANSFUSION Past Psychological History: ADD/ADHD, Anxiety, Bipolar, Depression, PTSD Smoking Status: Current every day smoker, Unknown if ever smoked Past Alcohol Use History: None Reported, Unable to Obtain Past Drug Use History: Marijuana, Unable to Obtain - Past Family History Sister(s) Additional Family Medical History / Comment(s): He has one sister that is healthy. He also has a 4-year-old daughter that is healthy. Father Family Medical History: GERD/Reflux Additional Family Medical History / Comment(s): Father is alive at age 60 recovered alcoholic with no major medical problems. Mother Additional Family Medical History / Comment(s): Mother is alive at age 58 recovered alcoholic and chronic back problems. General Exam Limitations: no limitations General appearance: alert, in no apparent distress Head exam: Present: atraumatic, normocephalic, normal inspection Eye exam: Present: normal appearance, PERRL, EOMI. Absent: scleral icterus, conjunctival injection, periorbital swelling ENT exam: Present: normal exam, mucous membranes moist Neck exam: Present: normal inspection. Absent: tenderness, meningismus, lymphadenopathy Respiratory exam: Present: normal lung sounds bilaterally. Absent: respiratory distress, wheezes, rales, rhonchi, stridor Cardiovascular Exam: Present: regular rate, normal rhythm, normal heart sounds. Absent: systolic murmur, diastolic murmur, rubs, gallop, clicks GI/Abdominal exam: Present: soft, normal bowel sounds. Absent: distended, tenderness, guarding, rebound, rigid Extremities exam: Present: normal inspection, full ROM, normal capillary refill. Absent: tenderness, pedal edema, joint swelling, calf tenderness Back exam: Present: normal inspection Neurological exam: Present: alert, oriented X3, CN II-XII intact Psychiatric exam: Present: normal affect, normal mood Skin exam: Present: warm, dry, intact, normal color. Absent: rash Course Vital Signs 03/03/24 03/03/24 03/03/24 18:01 18:45 19:36 Temperature 97.5 F L Pulse Rate 70 63 63 Respiratory 18 18 16 Rate Blood Pressure 103/71 107/67 117/71 O2 Sat by Pulse 98 97 95 Oximetry 03/03/24 03/03/24 20:00 21:00 Temperature Pulse Rate 60 62 Respiratory 16 12 Rate Blood Pressure 118/72 115/76 O2 Sat by Pulse 95 96 Oximetry - Reevaluation(s) Reevaluation #1: 03/03/24 20:17 Medical records reviewed Reevaluation #2: 03/03/24 20:17 Patient symptoms unchanged Reevaluation #3: 03/03/24 20:17 Patient informed of results and questions answered Reevaluation #4: Was pt. sent in by a medical professional or institution (, PA, PROCUREMENT COST COORDINATOR, urgent care, hospital, or penitentiary...) When possible be specific @ -no Did you speak to anyone other than the patient for history (EMS, parent, family, police, friend...)? What history was obtained from this source @ -no Did you review nursing and triage notes (agree or disagree)? Why? @ -agree Are old charts reviewed (outside hosp., previous admission, EMS record, old EKG, old radiological studies, urgent care reports/EKG's, penitentiary records)? Report findings @ -yes Differential Diagnosis (chest pain, altered mental status, abdominal pain women, abdominal pain men, vaginal bleeding, weakness, fever, dyspnea, syncope, headache, dizziness, GI bleed, back pain, seizure, CVA, palpatations, mental health, musculoskeletal)? @ -prior EKG interpreted by me (3pts min.). @ -no X-rays interpreted by me (1pt min.). @ -no CT interpreted by me (1pt min.). @ -yes negative for acute disease U/S interpreted by me (1pt. min.). @ -no What testing was considered but not performed or refused? (CT, X-rays, U/S, labs)? Why? @ -none What meds were considered but not given or refused? Why? @ -none Did you discuss the management of the patient with other professionals (professionals i.e. , PA, PROCUREMENT COST COORDINATOR, lab, RT, psych nurse, social sciences lecturer, development engineer, teacher, corporation officer, geriatric case manager)? Give summary @ -no Was smoking cessation discussed for >3mins.? @ -no Was critical care preformed (if so, how long)? @ -no Were there social determinants of health that impacted care today? How? (Homelessness, low income, unemployed, alcoholism, drug addiction, transportation, low edu. Level, literacy, decrease access to med. care, [facility], rehab)? @ -none Was there de-escalation of care discussed even if they declined (Discuss DNR or withdrawal of care, Hospice)? DNR status @ -no What co-morbidities impacted this encounter? (DM, HTN, Smoking, COPD, CAD, Cancer, CVA, ARF, Chemo, Hep., AIDS, mental health diagnosis, sleep apnea, morbid obesity)? @ -none Was patient admitted / discharged? Hospital course, mention meds given and route, prescriptions, significant lab abnormalities, going to OR and other pertinent info. @ - 33 male with nonspecific abdominal pain. No acute cause of abdominal pain found here in the ER pain is controlled patient can be discharged home Discharge Undiagnosed new problem with uncertain prognosis? @ -no Drug Therapy requiring intensive monitoring for toxicity (Heparin, Nitro, Insulin, Cardizem)? @ -no Were any procedures done? @ -no Diagnosis/symptom? @ -Abdominal pain Acute, or Chronic, or Acute on Chronic? @ -Acute Uncomplicated (without systemic symptoms) or Complicated (systemic symptoms)? @ -Complicated Side effects of treatment? @ -no Exacerbation, Progression, or Severe Exacerbation? @ -exacerbation Poses a threat to life or bodily function? How? (Chest pain, USA, ME, pneumonia, PE, COPD, DKA, ARF, appy, cholecystitis, CVA, Diverticulitis, Homicidal, Chambers icidal, threat to staff... and all critical care pts) @ -no Reevaluation #5: Differential Abdominal Pain Men: Appendicitis, cholecystitis, diverticulosis, ischemic bowel, pancreatitis, hepatitis, UTI, gastroenteritis, AAA, incarcerated hernia, bowel obstruction, constipation, inflammatory bowel, hepatitis, peptic ulcer disease, splenic infarction, perforated viscus, testicular torsion, this is not meant to be an all-inclusive list Medical Decision Making - Medical Decision Making 33 male with nonspecific abdominal pain. No acute cause of abdominal pain found here in the ER pain is controlled patient can be discharged home - Lab Data Result diagrams: 03/03/24 18:50 03/03/24 18:50 Lab Results 03/03/24 03/03/24 03/03/24 Range/Units 18:50 18:50 18:50 WBC 7.2 (3.8-10.6) k/uL RBC 5.39 (4.30-5.90) m/uL Hgb 16.4 (13.0-17.5) gm/dL Hct 49.9 (39.0-53.0) % MCV 92.5 (80.0-100.0) fL MCH 30.4 (25.0-35.0) pg MCHC 32.8 (31.0-37.0) g/dL RDW 13.8 (11.5-15.5) % Plt Count 252 (150-450) k/uL MPV 8.1 Neutrophils % 52 % Lymphocytes % 36 % Monocytes % 6 % Eosinophils % 3 % Basophils % 1 % Neutrophils # 3.7 (1.3-7.7) k/uL Lymphocytes # 2.6 (1.0-4.8) k/uL Monocytes # 0.4 (0-1.0) k/uL Eosinophils # 0.2 (0-0.7) k/uL Basophils # 0.0 (0-0.2) k/uL Sodium 140 (137-145) mmol/L Potassium 4.6 (3.5-5.1) mmol/L Chloride 106 (98-107) mmol/L Carbon Dioxide 25 (22-30) mmol/L Anion Gap 9 mmol/L BUN 10 (9-20) mg/dL Creatinine 0.67 (0.66-1.25) mg/dL Est GFR (CKD-EPI)AfAm >90 (>60 ml/min/1.73 sqM) Est GFR (CKD-EPI)NonAf >90 (>60 ml/min/1.73 sqM) Glucose 84 (74-99) mg/dL Plasma Lactic Acid Socrates (0.7-2.0) mmol/L Calcium 10.0 (8.4-10.2) mg/dL Phosphorus 3.7 (2.5-4.5) mg/dL Magnesium 1.9 (1.6-2.3) mg/dL Total Bilirubin 0.5 (0.2-1.3) mg/dL AST 26 (17-59) U/L ALT 26 (4-49) U/L Alkaline Phosphatase 95 (38-126) U/L Total Protein 7.1 (6.3-8.2) g/dL Albumin 4.9 (3.5-5.0) g/dL Amylase 42 (30-110) U/L Lipase 20 L (23-300) U/L Urine Color Light Yellow Urine Appearance Clear (Clear) Urine pH 6.0 (5.0-8.0) Ur Specific Clifford 1.016 (1.001-1.035) Urine Protein Negative (Negative) Urine Glucose (UA) Negative (Negative) Urine Ketones Negative (Negative) Urine Blood Negative (Negative) Urine Nitrite Negative (Negative) Urine Bilirubin Negative (Negative) Urine Urobilinogen <2.0 (<2.0) mg/dL Ur Leukocyte Esterase Negative (Negative) 03/03/24 Range/Units 18:50 WBC (3.8-10.6) k/uL RBC (4.30-5.90) m/uL Hgb (13.0-17.5) gm/dL Hct (39.0-53.0) % MCV (80.0-100.0) fL MCH (25.0-35.0) pg MCHC (31.0-37.0) g/dL RDW (11.5-15.5) % Plt Count (150-450) k/uL MPV Neutrophils % % Lymphocytes % % Monocytes % % Eosinophils % % Basophils % % Neutrophils # (1.3-7.7) k/uL Lymphocytes # (1.0-4.8) k/uL Monocytes # (0-1.0) k/uL Eosinophils # (0-0.7) k/uL Basophils # (0-0.2) k/uL Sodium (137-145) mmol/L Potassium (3.5-5.1) mmol/L Chloride (98-107) mmol/L Carbon Dioxide (22-30) mmol/L Anion Gap mmol/L BUN (9-20) mg/dL Creatinine (0.66-1.25) mg/dL Est GFR (CKD-EPI)AfAm (>60 ml/min/1.73 sqM) Est GFR (CKD-EPI)NonAf (>60 ml/min/1.73 sqM) Glucose (74-99) mg/dL Plasma Lactic Acid Socrates 1.2 (0.7-2.0) mmol/L Calcium (8.4-10.2) mg/dL Phosphorus (2.5-4.5) mg/dL Magnesium (1.6-2.3) mg/dL Total Bilirubin (0.2-1.3) mg/dL AST (17-59) U/L ALT (4-49) U/L Alkaline Phosphatase (38-126) U/L Total Protein (6.3-8.2) g/dL Albumin (3.5-5.0) g/dL Amylase (30-110) U/L Lipase (23-300) U/L Urine Color Urine Appearance (Clear) Urine pH (5.0-8.0) Ur Specific Clifford (1.001-1.035) Urine Protein (Negative) Urine Glucose (UA) (Negative) Urine Ketones (Negative) Urine Blood (Negative) Urine Nitrite (Negative) Urine Bilirubin (Negative) Urine Urobilinogen (<2.0) mg/dL Ur Leukocyte Esterase (Negative) - Radiology Data Radiology results: report reviewed (CT abdPelvis is negative for acute disease), image reviewed Disposition Clinical Impression: Abdominal pain, Abdominal colic Disposition: HOME SELF-CARE Condition: Good Instructions (If sedation given, give patient instructions): Abdominal Pain (ED) Prescriptions: HYDROcodone/APAP 5-325MG [[place] 5-325] 1 tab PO Q6HR PRN #12 tab PRN Reason: Pain Is patient prescribed a controlled substance at d/c from ED?: No Referrals: Sumeet Mejias III, MD [Primary Care Provider] - 1-2 days Time of Disposition: 20:00
[2024-03-03] MEDS: SODIUM CHLORIDE 0.9% 1,000 ML IV STA (18:58)
[2024-03-03] MEDS: HYDROmorphone 0.5 MG/0.5 ML SYRINGE IVP STA (18:58)
[2024-03-03 19:12] LABS: Appearance,Urine Clear (Clear); Basophils % (A) 1 %; Bilirubin,Urine Negative (Negative); Blood,Urine Negative (Negative); Color,Urine Light Yellow; Eosinophils # (A) 0.2 k/uL (0-0.7); Eosinophils % (A) 3 %; Glucose,Urine (UA) Negative (Negative); HCT 49.9 % (39.0-53.0); HGB 16.4 gm/dL (13.0-17.5); Ketones,Urine Negative (Negative); Leukocyte Esterase,Urine Negative (Negative); Lymphocytes # (A) 2.6 k/uL (1.0-4.8); Lymphocytes % (A) 36 %; MCH 30.4 pg (25.0-35.0); MCHC 32.8 g/dL (31.0-37.0); MCV 92.5 fL (80.0-100.0); Mean Platelet Volume 8.1; Monocytes # (A) 0.4 k/uL (0-1.0); Monocytes % (A) 6 %; Neutrophils # (A) 3.7 k/uL (1.3-7.7); Neutrophils % (A) 52 %; Nitrite,Urine Negative (Negative); Platelet Count 252 k/uL (150-450); Protein,Urine Negative (Negative); RBC 5.39 m/uL (4.30-5.90); RDW 13.8 % (11.5-15.5); Specific Gravity,Urine 1.016 (1.001-1.035); Urobilinogen,Urine <2.0 mg/dL (<2.0); WBC 7.2 k/uL (3.8-10.6)
[2024-03-03 19:22] LABS: ALT 26 U/L (4-49); AST 26 U/L (17-59); African American GFR (CKD) >90 (>60 ml/min/1.73 sqM); Albumin 4.9 g/dL (3.5-5.0); Alkaline Phosphatase 95 U/L (38-126); Amylase 42 U/L (30-110); Anion Gap 9 mmol/L; Blood Urea Nitrogen 10 mg/dL (9-20); Carbon Dioxide 25 mmol/L (22-30); Chloride 106 mmol/L (98-107); Glucose 84 mg/dL (74-99); Lipase 20 U/L (23-300); Magnesium 1.9 mg/dL (1.6-2.3); Non-African American GFR(CKD) >90 (>60 ml/min/1.73 sqM); Phosphorus 3.7 mg/dL (2.5-4.5); Potassium 4.6 mmol/L (3.5-5.1); Sodium 140 mmol/L (137-145); Total Bilirubin 0.5 mg/dL (0.2-1.3); Total Protein 7.1 g/dL (6.3-8.2)
--- NOTE | 2024-03-03 20:09 | CT ---
EXAMINATION TYPE: CT abdomen pelvis w con CT DLP: 971.8 mGycm, Automated exposure control for dose reduction was used. DATE OF EXAM: 03/03/2024 7:29 PM COMPARISON: None. CLINICAL INDICATION:Male, 33 years old with history of abdominal pain; abd pain TECHNIQUE: Axial CT of the abdomen and pelvis. Sagittal and coronal reformats were created on a [employer] workstation. Contrast used:100 ml mL of Isovue 300 with IV Contrast, (none if empty) Oral contrast used: without Oral Contrast (none if empty) FINDINGS: LOWER CHEST: Unremarkable ABDOMEN LIVER: Unremarkable GALLBLADDER AND BILE DUCTS: Unremarkable gallbladder. No biliary ductal dilatation. PANCREAS: Unremarkable. SPLEEN: Unremarkable. ADRENAL GLANDS: Unremarkable. KIDNEYS AND URETERS: Kidneys enhance symmetrically. No evidence of hydronephrosis or visible renal ca lculus. The ureters are unremarkable. PELVIS BLADDER: Unremarkable REPRODUCTIVE: Unremarkable. ABDOMEN & PELVIS STOMACH AND BOWEL: Stomach and small bowel are nondistended, no evidence of obstruction. The append ix appears within normal limits. There is some stool and gas seen throughout the colon with no focal acute abnormality shown. Some residual contrast is present in the distal colon. PERITONEUM/RETROPERITONEUM: No evidence of pneumoperitoneum or free fluid. VASCULATURE: Aorta and major branches are grossly unremarkable. No AAA. Portal veins are enhancing. Splenic vein is patent. SMV is enhancing. LYMPH NODES: No enlarged nodes by CT size criteria. SOFT TISSUE/ABDOMINAL WALL: Unremarkable MUSCULOSKELETAL: No acute osseous abnormalities. Mild disc degeneration changes are present throughou t the thoracolumbar spine. IMPRESSION: No acute abnormality in the abdomen or pelvis.
[2024-03-03] MEDS: MORPHINE SULFATE 4 MG/ML SYRINGE IVP STA (20:19)
[2024-03-03] MEDS: traMADol 50 MG STARTER PACK 3 TAB BTL PO STA (21:15)
[2024-03-03] MEDS: ONDANSETRON 4 MG ODT STARTER PACK 2 TAB BTL PO STA (21:16)
[2024-03-03 21:18] VITALS: BP 115/76; PULSE 62; RESP 12
== END 2024-03-03 21:18 | disposition home or self-care (01) ==
LOC: EC 17:56
DX: R10.84 Generalized abdominal pain (principal); F17.200 Nicotine dependence, unspecified, uncomplicated; F12.90 Cannabis use, unspecified, uncomplicated; Z88.8 Allergy status to other drugs, medicaments and biological substances
CPT/HCPCS: 36415; 80053; 82150; 83605; 83690; 83735; 84100; 85025; 81003; 74177; 99284; 96374; 96375; 96361; J2270; S0119; J1170; Q9967

== ENCOUNTER 2024-03-20 01:47 | Emergency (ER) | payer OTHER ==
[2024-03-20 01:56] VITALS: RESP 18; TEMP 98.5
[2024-03-20 02:36] LABS: Basophils % (A) 0 %; Eosinophils # (A) 0.3 k/uL (0-0.7); Eosinophils % (A) 3 %; HCT 47.8 % (39.0-53.0); HGB 16.3 gm/dL (13.0-17.5); Lymphocytes # (A) 2.8 k/uL (1.0-4.8); Lymphocytes % (A) 27 %; MCH 31.7 pg (25.0-35.0); MCHC 34.1 g/dL (31.0-37.0); MCV 93.1 fL (80.0-100.0); Monocytes # (A) 0.4 k/uL (0-1.0); Monocytes % (A) 4 %; Neutrophils # (A) 6.7 k/uL (1.3-7.7); Neutrophils % (A) 64 %; Platelet Count 226 k/uL (150-450); RBC 5.14 m/uL (4.30-5.90); RDW 13.6 % (11.5-15.5); WBC 10.4 k/uL (3.8-10.6)
--- NOTE | 2024-03-20 03:00 | ED ---
General Adult HPI - General Chief complaint: Nausea/Vomiting/Diarrhea Stated complaint: Abdominal Pain, Diarrhea Time Seen by Provider: 03/20/24 02:18 Source: family Mode of arrival: wheelchair Limitations: no limitations - History of Present Illness Initial comments: Dictation was produced using [employer] dictation software. please excuse any grammatical, word or spelling errors. Chief Complaint: 33-year-old male with abdominal pain and diarrhea History of Present Illness: Patient 33-year-old male he is with his mother. Patient was brought here today for abdominal pain. Patient has history of severe IBS. Has been in the hospital multiple times. Patient states that his pain feels like his usual IBS symptoms. States that it is to his entire a bdomen. Patient has been very gassy. He has followed up with GI and has a colonoscopy coming up. Patient has been taking dicyclomine which sometimes helps but sometimes does not. Denies any fever, chills or night sweats. The ROS documented in this emergency department record has been reviewed and confirmed by me. Those systems with pertinent positive or negative responses have been documented in the HPI. All other systems are other negative and/or noncontributory. - Related Data Home Medications Medication Instructions Recorded Confirmed ALPRAZolam [Xanax] 1 mg PO TID PRN 10/21/22 10/21/22 Atorvastatin [Lipitor] 20 mg PO HS 10/21/22 10/21/22 Azelaic Acid 1 applic TOPICAL DAILY 10/21/22 10/21/22 Propranolol [Inderal] 40 mg PO DAILY 10/21/22 10/21/22 fluPHENAZine decanoate [Prolixin 50 mg IM Q30D 10/21/22 10/21/22 Decanoate] traZODone HCL 200 mg PO HS 10/21/22 10/21/22 Previous Rx's Medication Instructions Recorded lamoTRIgine [LaMICtal] 100 mg PO HS 30 Days tab 06/05/22 Nicotine 21Mg/24Hr Patch [Habitrol] 1 patch TRANSDERM DAILY #30 patch 10/23/22 amantadine HCL [Amantadine] 100 mg PO AC-BID #60 capsule 10/23/22 diphenhydrAMINE [Benadryl] 25 mg PO TID PRN #90 capsule 10/23/22 rOPINIRole HCL [Requip] 0.25 mg PO HS #30 tab 10/23/22 HYDROcodone/APAP 5-325MG [[place] 1 tab PO Q6HR PRN #12 tab 03/03/24 5-325] Allergies Allergy/AdvReac Type Severity Reaction Status Date / Time aripiprazole [From Abilify] Allergy Unknown Unknown Verified 03/20/24 01:56 cariprazine [From Vraylar] Allergy Unknown Unknown Verified 03/20/24 01:56 citalopram [From Celexa] Allergy Unknown Unknown Verified 03/20/24 01:56 divalproex sodium Allergy Unknown Unknown Verified 03/20/24 01:56 [From Depakote] paroxetine [From Paxil] Allergy Unknown Unknown Verified 03/20/24 01:56 sertraline [From Zoloft] Allergy Unknown Unknown Verified 03/20/24 01:56 phenobarbital AdvReac Severe Rapid Verified 03/20/24 01:56 Heart Rate zolpidem tartrate AdvReac Unknown Altered Verified 03/20/24 01:56 [From Ambien] Mental Status estropipate [From Ogen 2.5] AdvReac Twitching Verified 03/20/24 01:56 of Legs haloperidol [From Haldol] AdvReac Agitation Verified 03/20/24 01:56 methylprednisolone AdvReac Altered Verified 03/20/24 01:56 [From Solu-Medrol] Mental Status Review of Systems ROS Statement: Those systems with pertinent positive or pertinent negative responses have been documented in the HPI. ROS Other: All systems not noted in ROS Statement are negative. Past Medical History Past Medical History: GERD/Reflux, GI Bleed, Renal Disease, Unable to Obtain Additional Past Medical History / Comment(s): tremors History of Any Multi-Drug Resistant Organisms: None Reported Past Surgical History: Tonsillectomy, Unable to Obtain Additional Past Surgical History / Comment(s): wisdom teeth removed. Past Anesthesia/Blood Transfusion Reactions: No Reported Reaction Additional Past Anesthesia/Blood Transfusion Reaction / Comment(s): NEVER HAD BLOOD TRANSFUSION Past Psychological History: ADD/ADHD, Anxiety, Bipolar, Depression, PTSD Smoking Status: Current every day smoker, Unknown if ever smoked Past Alcohol Use History: None Reported Past Drug Use History: Marijuana - Past Family History Sister(s) Additional Family Medical History / Comment(s): He has one sister that is he althy. He also has a 4-year-old daughter that is healthy. Father Family Medical History: GERD/Reflux Additional Family Medical History / Comment(s): Father is alive at age 60 recovered alcoholic with no major medical problems. Mother Additional Family Medical History / Comment(s): Mother is alive at age 58 jenna saul alcoholic and chronic back problems. General Exam - General Exam Comments Initial Comments: PHYSICAL EXAM: General Impression: Alert and oriented x3, not in acute distress HEENT: Normocephalic atraumatic, extra-ocular movements intact, pupils equal and reactive to light bilaterally, mucous membranes moist. Cardiovascular: Heart regular rate and rhythm Chest: Able to complete full sentences, no retractions, no tachypnea Abdomen: abdomen soft, diffuse palpatory tenderness r, non-distended, no organomegaly Musculoskeletal: Pulses present and equal in all extremities, no peripheral edema Motor: no focal deficits noted Neurological: CN II-XII grossly intact, no focal motor or sensory deficits noted Skin: Intact with no visualized rashes Psych: Normal affect and mood Limitations: no limitations Course Vital Signs 03/20/24 01:54 Temperature 98.5 F Pulse Rate 84 Respiratory 18 Rate Blood Pressure 137/83 O2 Sat by Pulse 96 Oximetry Medical Decision Making - Medical Decision Making Was pt. sent in by a medical professional or institution ([facility], [facility], urgent care, hospital, or senior living...) When possible be specific @ -No Did you speak to anyone other than the patient for history (EMS, parent, family, police, friend...)? What history was obtained from this source @ -Mother at the bedside aids in provide history of present illness Did you review nursing and triage notes (agree or disagree)? Why? @ -I reviewed and agree with nursing and triage notes Were old charts reviewed (outside hosp., previous admission, EMS record, old EKG, old radiological studies, urgent care reports/EKG's, senior living records)? Report findings @ -No old charts were reviewed Differential Diagnosis (chest pain, altered mental status, abdominal pain women, abdominal pain men, vaginal bleeding, musculoskeletal, weakness, fever, dyspnea, syncope, headache, dizziness, GI bleed, back pain, seizure, CVA, palpatations, mental health)? @ -Differential Abdominal Pain Men: Appendicitis, cholecystitis, diverticulosis, ischemic bowel, pancreatitis, hepatitis, UTI, gastroenteritis, AAA, incarcerated hernia, bowel obstruction, constipation, inflammatory bowel, hepatitis, peptic ulcer disease, splenic infarction, perforated viscus, testicular torsion, this is not meant to be an all-inclusive list EKG interpreted by me (3pts min.). @ -None done X-rays interpreted by me (1pt min.). @ -None done CT interpreted by me (1pt min.). @ -None done U/S interpreted by me (1pt. min.). @ -None done What testing was considered but not performed or refused? (CT, X-rays, U/S, labs)? Why? @ -None What meds were considered but not given or refused? Why? @ -None Was smoking cessation discussed for >3mins.? @ -No Were there social determinants of health that impacted care today? How? (Homelessness, low income, unemployed, alcoholism, drug addiction, transportation, low edu. Level, literacy, decrease access to med. care, prison, rehab)? @ -No Was there de-escalation of care discussed even if they declined (Discuss DNR or withdrawal of care, Hospice)? DNR status @ -No What co-morbidities impacted this encounter? (DM, HTN, Smoking, COPD, CAD, Cancer, CVA, ARF, Chemo, Hep., AIDS, mental health diagnosis, sleep apnea, morbid obesity)? @ -History of IBS Was patient admitted / discharged? Hospital course, mention meds given and route, prescriptions, significant lab abnormalities, going to OR and other pertinent info. @ -33-year-old male presents emergency department for what he describes as an IBS flareup. Vital signs upon arrival are within acceptable limits. Patient in acute distress at bedside however he has a soft abdomen that is nonperitoneal. Laboratory evaluation obtained. No leukocytosis. Metabolic panel within acceptable limits. C. difficile is negative. Patient did have a lactic acidosis of 2.5 unclear etiology. Patient given multiple rounds of analgesics. Patient was offered CT scan however refused due to having multiple CTs that were unrevealing. Patient did not feel the risk of extra radiation was worth ruling out any sort of life-threatening process. Patient wants to be discharged after having had 1 more dose of morphine. He does have an appointment coming up with GI. Did you discuss the management of the patient with other professionals (professionals i.e. , PA, SILK SNAPPER, lab, RT, psych nurse, professor of social work, fan mail clerk, teacher, aviation safety officer, counseling case manager)? Give summary @ -No Was critical care preformed (if so, how long)? @ -No Undiagnosed new problem with uncertain prognosis? @ -No Drug Therapy requiring intensive monitoring for toxicity (Heparin, Nitro, Insulin, Cardizem)? @ -No Were any procedures done? @ -No Diagnosis/symptom? Acute, or Chronic, or Acute on Chronic? Uncomplicated (without systemic symptoms) or Complicated (systemic symptoms)? @ -Abdominal pain Side effects of treatment? @ -No Exacerbation, Progression, or Severe Exacerbation? @ -No Poses a threat to life or bodily function? How? (Chest pain, [place], [place], pneumonia, PE, COPD, DKA, ARF, appy, cholecystitis, CVA, Diverticulitis, Homicidal, Suici steve, threat to staff... and all critical care pts) @ -No - Lab Data Result diagrams: 03/20/24 02:07 03/20/24 02:07 Lab Results 03/20/24 03/20/24 03/20/24 Range/Units 02:07 02:07 02:07 WBC 10.4 (3.8-10.6) k/uL RBC 5.14 (4.30-5.90) m/uL Hgb 16.3 (13.0-17.5) gm/dL Hct 47.8 (39.0-53.0) % MCV 93.1 (80.0-100.0) fL MCH 31.7 (25.0-35.0) pg MCHC 34.1 (31.0-37.0) g/dL RDW 13.6 (11.5-15.5) % Plt Count 226 (150-450) k/uL MPV 8.0 Neutrophils % 64 % Lymphocytes % 27 % Monocytes % 4 % Eosinophils % 3 % Basophils % 0 % Neutrophils # 6.7 (1.3-7.7) k/uL Lymphocytes # 2.8 (1.0-4.8) k/uL Monocytes # 0.4 (0-1.0) k/uL Eosinophils # 0.3 (0-0.7) k/uL Basophils # 0.0 (0-0.2) k/uL Sodium 140 (137-145) mmol/L Potassium 3.7 (3.5-5.1) mmol/L Chloride 110 H (98-107) mmol/L Carbon Dioxide 18 L (22-30) mmol/L Anion Gap 12 mmol/L BUN 13 (9-20) mg/dL Creatinine 0.73 (0.66-1.25) mg/dL Est GFR (CKD-EPI)AfAm >90 (>60 ml/min/1.73 sqM) Est GFR (CKD-EPI)NonAf >90 (>60 ml/min/1.73 sqM) Glucose 103 H (74-99) mg/dL Plasma Lactic Acid Socrates (0.7-2.0) mmol/L Calcium 9.8 (8.4-10.2) mg/dL Total Bilirubin 0.6 (0.2-1.3) mg/dL AST 46 (17-59) U/L ALT 41 (4-49) U/L Alkaline Phosphatase 100 (38-126) U/L Total Protein 7.0 (6.3-8.2) g/dL Albumin 4.9 (3.5-5.0) g/dL Amylase 33 (30-110) U/L Lipase 33 (23-300) U/L C. difficile (EIA) Intrp Negative (Negative) 03/20/24 Range/Units 02:08 WBC (3.8-10.6) k/uL RBC (4.30-5.90) m/uL Hgb (13.0-17.5) gm/dL Hct (39.0-53.0) % MCV (80.0-100.0) fL MCH (25.0-35.0) pg MCHC (31.0-37.0) g/dL RDW (11.5-15.5) % Plt Count (150-450) k/uL MPV Neutrophils % % Lymphocytes % % Monocytes % % Eosinophils % % Basophils % % Neutrophils # (1.3-7.7) k/uL Lymphocytes # (1.0-4.8) k/uL Monocytes # (0-1.0) k/uL Eosinophils # (0-0.7) k/uL Basophils # (0-0.2) k/uL Sodium (137-145) mmol/L Potassium (3.5-5.1) mmol/L Chloride (98-107) mmol/L Carbon Dioxide (22-30) mmol/L Anion Gap mmol/L BUN (9-20) mg/dL Creatinine (0.66-1.25) mg/dL Est GFR (CKD-EPI)AfAm (>60 ml/min/1.73 sqM) Est GFR (CKD-EPI)NonAf (>60 ml/min/1.73 sqM) Glucose (74-99) mg/dL Plasma Lactic Acid Socrates 2.5 H* (0.7-2.0) mmol/L Calcium (8.4-10.2) mg/dL Total Bilirubin (0.2-1.3) mg/dL AST (17-59) U/L ALT (4-49) U/L Alkaline Phosphatase (38-126) U/L Total Protein (6.3-8.2) g/dL Albumin (3.5-5.0) g/dL Amylase (30-110) U/L Lipase (23-300) U/L C. difficile (EIA) Intrp (Negative) Disposition Clinical Impression: IBS (irritable bowel syndrome) Disposition: HOME SELF-CARE Condition: Good Instructions (If sedation given, give patient instructions): Irritable Bowel Syndrome (ED) Is patient prescribed a controlled substance at d/c from ED?: No Referrals: Sumeet Mejias III, MD [Primary Care Provider] - 1-2 days Time of Disposition: 05:05
[2024-03-20 03:08] LABS: ALT 41 U/L (4-49); AST 46 U/L (17-59); African American GFR (CKD) >90 (>60 ml/min/1.73 sqM); Albumin 4.9 g/dL (3.5-5.0); Alkaline Phosphatase 100 U/L (38-126); Amylase 33 U/L (30-110); Anion Gap 12 mmol/L; Blood Urea Nitrogen 13 mg/dL (9-20); Calcium 9.8 mg/dL (8.4-10.2); Carbon Dioxide 18 mmol/L (22-30); Chloride 110 mmol/L (98-107); Glucose 103 mg/dL (74-99); Lipase 33 U/L (23-300); Non-African American GFR(CKD) >90 (>60 ml/min/1.73 sqM); Potassium 3.7 mmol/L (3.5-5.1); Sodium 140 mmol/L (137-145); Total Bilirubin 0.6 mg/dL (0.2-1.3)
[2024-03-20] MEDS: MORPHINE SULFATE 4 MG/ML SYRINGE IVP PRN (03:16)
[2024-03-20] MEDS: MORPHINE SULFATE 4 MG/ML SYRINGE IVP STA ×2 (04:04)
[2024-03-20] MEDS: SODIUM CHLORIDE 0.9% 1,000 ML BAG IV STA (04:39)
[2024-03-20] MEDS: MORPHINE SULFATE 4 MG/ML SYRINGE IV STA (05:25)
[2024-03-20 05:34] VITALS: BP 115/75; PULSE 69
== END 2024-03-20 05:34 | disposition home or self-care (01) ==
LOC: EC 01:47
DX: K58.9 Irritable bowel syndrome, unspecified (principal); F17.200 Nicotine dependence, unspecified, uncomplicated; Z88.8 Allergy status to other drugs, medicaments and biological substances; Z88.1 Allergy status to other antibiotic agents
CPT/HCPCS: 36415; 80053; 82150; 83605; 83690; 85025; 87324; 87045; 87046; 99284; 96374; 96376 ×2; 96361; J2270

== ENCOUNTER 2024-03-24 08:55 | Day surgery (SDC) | payer OTHER ==
[~2024-03-24 08:55] MED LIST: LIDOCAINE 1% (10MG/ML) FOR IV START INTRADERMA PRN
[2024-03-24] MEDS: LACTATED RINGERS 1,000 ML IV SCH (09:39)
[2024-03-24] MEDS: IV FLUID CONTINUATION 1,000 ML IV ONE (09:39)
[2024-03-24 09:42] VITALS: TEMP 97
[2024-03-24] MEDS ORDERED: LIDOCAINE 1% INJ 10MG/ML (20 ML MDV) ONE (09:55)
[2024-03-24] MEDS ORDERED: PROPOFOL 10 MG/ML 20 ML VIAL IV ONE (09:55)
--- NOTE | 2024-03-24 10:18 | P.PCN ---
Date of Procedure: 03/24/24 Procedure(s) Performed: Brief history: Patient is a pleasant 33-year-old white female scheduled for an elective upper endoscopy as well as colonoscopy as a part of evaluation of Abdominal pain, change in bowel habits for the last 6 months duration. He has been having intermittent rectal bleeding also Procedure performed: Esophagogastroduodenoscopy with biopsy Colonoscopy With biopsy Preoperative diagnosis: Abdominal pain and change in bowel habits Intermittent rectal bleeding Procedure: After informed consent was obtained from the patient was brought into the endoscopy unit and IV sedation was administered by anesthesia under continuous monitoring. Initially upper endoscopy was done. The Olympus GF 160 video endoscope was inserted inserted into the mouth and esophagus intubated without any difficulty and was gradually advanced into the stomach and duodenum and carefully examined. The bulb and second part of the duodenum appeared normal. Biopsies were done from the duodenum to evaluate for celiac disease. The scope was then withdrawn into the stomach adequately insufflated with air and upon careful examination the antrum Had mild mottling of the mucosa consistent with gastritis and biopsies were done from this area. Mucosa of the body, cardia and fundus appeared normal. The scope was then withdrawn into the esophagus. The GE junction was located at 40 cm to the incisors. It appeared regular with no erythema erosions or ulcerations. Rest of the esophagus appeared normal. Patient tolerated the procedure well. At this time the patient continued to remain sedation. Initial digital rectal examination was normal. Olympus CF 160 video colonoscope was then inserted into the rectum and gradually advanced to the cecum without any difficulty. Careful examination was performed as the scope was gradually being withdrawn. The prep was excellent. The cecum, ascending colon, transverse colon, descending colon, sigmoid colon and rectum appeared normal.Random biopsies were done from ascending and descending colon to rule out microscopic/collagenous colitis Retroflexion was performed in the rectum and no lesions were noted. Patient tolerated the procedure well. Impression: 1. Upper endoscopy revealed mild antral gastritis but no evidence of esophagitis or peptic ulcer disease 2. Colonoscopy was within normal limit with no evidence of colorectal neoplasia Recommendations: Findings of this examination were discussed with the patient as well as His family. He was advised to follow with the biopsy results. He'll be seen in office in 3 weeks.
[2024-03-24 10:39] VITALS: RESP 16
[2024-03-24 10:45] VITALS: BP 120/76; PULSE 78
== END 2024-03-24 11:08 | disposition home or self-care (01) ==
LOC: ORWHC2ENDO 08:55
PROVIDERS: ATTEND Internal Medicine Gastroenterology
DX: K29.80 Duodenitis without bleeding (principal); K31.9 Disease of stomach and duodenum, unspecified; K31.A0 Gastric intestinal metaplasia, unspecified; R19.4 Change in bowel habit; K21.9 Gastro-esophageal reflux disease without esophagitis; F42.9 Obsessive-compulsive disorder, unspecified; F31.9 Bipolar disorder, unspecified; F90.9 Attention-deficit hyperactivity disorder, unspecified type; F10.90 Alcohol use, unspecified, uncomplicated; Z87.891 Personal history of nicotine dependence; Z79.899 Other long term (current) drug therapy; Z79.51 Long term (current) use of inhaled steroids; Z88.8 Allergy status to other drugs, medicaments and biological substances; Z88.2 Allergy status to sulfonamides; Z88.1 Allergy status to other antibiotic agents; Z87.442 Personal history of urinary calculi
CPT/HCPCS: 88305; 45380; 43239; J2001; J2704

== ENCOUNTER 2024-03-25 19:04 | Emergency (ER) | payer OTHER ==
[2024-03-25 19:25] VITALS: TEMP 99.1
--- NOTE | 2024-03-25 19:34 | ED ---
General Adult HPI - General Chief complaint: Overdose Stated complaint: post-op comp Time Seen by Provider: 03/25/24 19:20 Source: patient Mode of arrival: ambulatory Limitations: no limitations - History of Present Illness Initial comments: This is a 33-year-old male presents emergency department chief complaint of a possible overdose. As reported by the patient's guardian, his mother, she is concerned that the patient may have overdosed on Unisom sleep tablets. She states that the patient has not been acting himself since his colonoscopy that was completed yesterday and he is acting differently and having outbursts. On discussion with the patient, he states that he has taken 4 tablets total of Unisom. 2 tablets were taken yesterday evening and 2 tablets were taken this morning. Currently patient states that he is having diffuse abdominal pain and painful urination. Patient does have a history of IBS and states theses symptoms of abdominal pain are similar to when he has a flare up of pain. He denies fevers, chills, nausea, vomiting, hematochezia, dark or tarry stools. States that he has been passing gas. - Related Data Home Medications Medication Instructions Recorded Confirmed ALPRAZolam [Xanax] 1 mg PO QID PRN 10/21/22 03/25/24 Hyoscyamine Sulfate [Hyoscyamine 0.125 mg SL Q4HR PRN 03/22/24 03/25/24 Sulfate SL] Temazepam [Restoril] 15 mg PO HS 03/22/24 03/25/24 Nicotine 14Mg/24Hr Patch [Habitrol 1 patch TRANSDERM DIRECTED 03/25/24 03/25/24 14Mg/24Hr Patch] fluvoxaMINE MALEATE 100 mg PO HS 03/25/24 03/25/24 Previous Rx's Medication Instructions Recorded lamoTRIgine [LaMICtal] 100 mg PO HS 30 Days tab 06/05/22 Nicotine 21Mg/24Hr Patch [Habitrol] 1 patch TRANSDERM DAILY #30 patch 10/23/22 rOPINIRole HCL [Requip] 0.25 mg PO HS #30 tab 10/23/22 Allergies Allergy/AdvReac Type Severity Reaction Status Date / Time aripiprazole [From Abilify] Allergy Unknown Agitation Verified 03/25/24 19:57 cariprazine [From Vraylar] Allergy Unknown Agitation Verified 03/25/24 19:57 citalopram [From Celexa] Allergy Unknown Agitation Verified 03/25/24 19:57 divalproex sodium Allergy Unknown Agitation Verified 03/25/24 19:57 [From Depakote] paroxetine [From Paxil] Allergy Unknown Agitation Verified 03/25/24 19:57 sertraline [From Zoloft] Allergy Unknown Agitation Verified 03/25/24 19:57 phenobarbital AdvReac Severe Rapid Verified 03/25/24 19:57 Heart Rate zolpidem tartrate AdvReac Unknown Altered Verified 03/25/24 19:57 [From Ambien] Mental Status estropipate [From Ogen 2.5] AdvReac Twitching Verified 03/25/24 19:57 of Legs haloperidol [From Haldol] AdvReac Agitation Verified 03/25/24 19:57 methylprednisolone AdvReac Altered Verified 03/25/24 19:57 [From Solu-Medrol] Mental Status Review of Systems ROS Statement: Those systems with pertinent positive or pertinent negative responses have been documented in the HPI. ROS Other: All systems not noted in ROS Statement are negative. 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 PT IS ABLE TO MAKE DECISIONS FOR HISSELF History of Any Multi-Drug Resistant Organisms: None Reported Past Surgical History: No Surgical Hx Reported, Tonsillectomy Additional Past Surgical History / Comment(s): wisdom teeth removed. Past Anesthesia/Blood Transfusion Reactions: No Reported Reaction Additional Past Anesthesia/Blood Transfusion Reaction / Comment(s): NEVER HAD BLOOD TRANSFUSION Past Psychological History: ADD/ADHD, Anxiety, Bipolar, Depression, PTSD Smoking Status: Former smoker Past Alcohol Use History: None Reported Past Drug Use History: None Reported - Past Family History Sister(s) Additional Family Medical History / Comment(s): He has one sister that is healthy. He also has a 4-year-old daughter that is healthy. Father Family Medical History: GERD/Reflux Additional Family Medical History / Comment(s): DAD HAS ALSO NEVER BEEN AN AL COHOLIC-RARELY, RARELY DRINKS. Mother Family Medical History: Cancer Additional Family Medical History / Comment(s): MOM STATES SHE HAS NEVER BEEN AN ALCOHOLIC-MOM RARELY ,RARELY DRINKS. HX THYROID CANCER General Exam Limitations: no limitations General appearance: alert, in no apparent distress Head exam: Present: atraumatic, normocephalic, normal inspection Eye exam: Present: normal appearance, PERRL, EOMI. Absent: scleral icterus, conjunctival injection, periorbital swelling ENT exam: Present: normal exam, mucous membranes moist Neck exam: Present: normal inspection. Absent: tenderness, meningismus, lymphadenopathy Respiratory exam: Present: normal lung sounds bilaterally. Absent: respiratory distress, wheezes, rales, rhonchi, stridor Cardiovascular Exam: Present: regular rate, normal rhythm, normal heart sounds. Absent: systolic murmur, diastolic murmur, rubs, gallop, clicks GI/Abdominal exam: Present: soft, tenderness (diffuse), normal bowel sounds. Absent: distended, guarding, rebound, rigid Extremities exam: Present: normal inspection, full ROM, normal capillary refill. Absent: tenderness, pedal edema, joint swelling, calf tenderness Back exam: Present: normal inspection Neurological exam: Present: alert, oriented X3, CN II-XII intact Psychiatric exam: Present: normal affect Expanded Focused psych exam: Present: paranoid Skin exam: Present: warm, dry, intact, normal color. Absent: rash Course Vital Signs 03/25/24 03/25/24 19:09 23:10 Temperature 99.1 F Pulse Rate 117 H 81 Respiratory 18 17 Rate Blood Pressure 160/89 125/73 O2 Sat by Pulse 98 95 Oximetry Medical Decision Making - Medical Decision Making Was pt. sent in by a medical professional or institution (, PA, TIMBER GRADER, urgent care, hospital, or prison...) When possible be specific @ -No Did you speak to anyone other than the patient for history (EMS, parent, family, police, friend...)? What history was obtained from this source @ -No Did you review nursing and triage notes (agree or disagree)? Why? @ -I reviewed and agree with nursing and triage notes Were old charts reviewed (outside hosp., previous admission, EMS record, old EKG, old radiological studies, urgent care reports/EKG's, prison records)? Report findings @ -Reviewed the patient's chart note from 03/20/2024 [facility] chief complaint of abdominal pain and diarrhea. Patient has a history of IBS and has been seen in the hospital multiple times for this complaint. Differential Diagnosis (chest pain, altered mental status, abdominal pain women, abdominal pain men, vaginal bleeding, weakness, fever, dyspnea, syncope, headache, dizziness, GI bleed, back pain, seizure, CVA, palpatations, mental health, musculoskeletal)? @ -Differential Abdominal Pain Men: Appendicitis, cholecystitis, diverticulosis, ischemic bowel, pancreatitis, hepatitis, UTI, gastroenteritis, AAA, incarcerated hernia, bowel obstruction, constipation, inflammatory bowel, hepatitis, peptic ulcer disease, splenic infarction, perforated viscus, testicular torsion, Depression, anxiety, bipolar, psychosis, schizophrenia, borderline personality, situational depression, adjustment disorder, behavioral disorder, brain tumor, malingering, substance abuse, encephalopathy, medication reaction, dementia, hypothyroidism, degenerative neurologic disorder, lupus.... This is not meant to be all- inclusive list EKG interpreted by me (3pts min.). @ -None X-rays interpreted by me (1pt min.). @ -None done CT interpreted by me (1pt min.). @ -None done U/S interpreted by me (1pt. min.). @ -None done What testing was considered but not performed or refused? (CT, X-rays, U/S, labs)? Why? @ -None What meds were considered but not given or refused? Why? @ -None Did you discuss the management of the patient with other professionals (professionals i.e. , PA, TIMBER GRADER, lab, RT, psych nurse, social welfare administrator, supervisor steno pool, teacher, energy control officer, adult protective caseworker)? Give summary @ -I spoke to on-call EPS nurse, Estefania, in regard to the patient's presentation with concern for possible overdose. On discussion patient states that he has taken 4 doses of Unisom. 2 doses yesterday evening and 2 doses this morning. Patient denies thoughts of suicide or homicidal ideations. He states that he did not attempt to overdose on this medication and states that he was trying to fall asleep after he has been struggling with sleeping after colonoscopy that was completed. He appears pleased with the patient is safe for discharge and he has not no harm to himself. Was smoking cessation discussed for >3mins.? @ -No Was critical care preformed (if so, how long)? @ -No Were there social determinants of health that impacted care today? How? (Homelessness, low income, unemployed, alcoholism, drug addiction, transportation, low edu. Level, literacy, decrease access to med. care, half-way, rehab)? @ -No Was there de-escalation of care discussed even if they declined (Discuss DNR or withdrawal of care, Hospice)? DNR status @ -No What co-morbidities impacted this encounter? (DM, HTN, Smoking, COPD, CAD, Cancer, CVA, ARF, Chemo, Hep., AIDS, mental health diagnosis, sleep apnea, morbid obesity)? @ -None Was patient admitted / discharged? Hospital course, mention meds given and route, prescriptions, significant lab abnormalities, going to OR and other pertinent info. @ -[33-year-old male with potential overdose. On my discussion with the patient he states that he is taken 4 tablets of Unisom total with 2 doses yesterday evening and 2 doses this morning. Currently patient states that he is experiencing diffuse abdominal pain and dysuria. Labs including CBC, CMP, amylase and lipase within normal limits. Urinalysis no signs of infection. He is provided with IV fluids and morphine. Reevaluation, patient states that abdominal pain has has improved as compared to when he arrived. At this time patient is medically cleared and will be evaluated via EPS. As above, EPS has cleared patient safely for discharge home. On reevaluation, patient's abdominal pain has improved. However patient does have baseline recurrent abdominal pain due to history of IBS. Patient will be stable for discharge home. Case discussed with Dr. Valdivia Undiagnosed new problem with uncertain prognosis? @ -No Drug Therapy requiring intensive monitoring for toxicity (Heparin, Nitro, Insulin, Cardizem)? @ -No Were any procedures done? @ -No Diagnosis/symptom? @ -abdominal pain, potential overdose Acute, or Chronic, or Acute on Chronic? @ -acute Uncomplicated (without systemic symptoms) or Complicated (systemic symptoms)? @ -uncomplicated Side effects of treatment? @ -No Exacerbation, Progression, or Severe Exacerbation? @ -No Poses a threat to life or bodily function? How? (Chest pain, [place], [place], pneumonia, PE, COPD, DKA, ARF, appy, cholecystitis, CVA, Diverticulitis, Homicidal, Suicidal, threat to staff... and all critical care pts) @ -No vi - Lab Data Result diagrams: 03/25/24 19:55 03/25/24 20:23 Lab Results 03/25/24 03/25/24 03/25/24 Range/Units 19:55 20:23 21:03 WBC 13.7 H (3.8-10.6) k/uL RBC 5.28 (4.30-5.90) m/uL Hgb 16.3 (13.0-17.5) gm/dL Hct 48.6 (39.0-53.0) % MCV 92.1 (80.0-100.0) fL MCH 30.9 (25.0-35.0) pg MCHC 33.5 (31.0-37.0) g/dL RDW 13.5 (11.5-15.5) % Plt Count 261 (150-450) k/uL MPV 7.7 Neutrophils % 74 % Lymphocytes % 18 % Monocytes % 6 % Eosinophils % 1 % Basophils % 0 % Neutrophils # 10.2 H (1.3-7.7) k/uL Lymphocytes # 2.4 (1.0-4.8) k/uL Monocytes # 0.8 (0-1.0) k/uL Eosinophils # 0.1 (0-0.7) k/uL Basophils # 0.0 (0-0.2) k/uL Sodium 143 (137-145) mmol/L Potassium 3.8 (3.5-5.1) mmol/L Chloride 114 H (98-107) mmol/L Carbon Dioxide 19 L (22-30) mmol/L Anion Gap 10 mmol/L BUN 13 (9-20) mg/dL Creatinine 0.73 (0.66-1.25) mg/dL Est GFR (CKD-EPI)AfAm >90 (>60 ml/min/1.73 sqM) Est GFR (CKD-EPI)NonAf >90 (>60 ml/min/1.73 sqM) Glucose 77 (74-99) mg/dL Calcium 9.3 (8.4-10.2) mg/dL Total Bilirubin 1.2 (0.2-1.3) mg/dL AST 28 (17-59) U/L ALT 29 (4-49) U/L Alkaline Phosphatase 87 (38-126) U/L Total Protein 6.6 (6.3-8.2) g/dL Albumin 4.6 (3.5-5.0) g/dL Amylase 32 (30-110) U/L Lipase 27 (23-300) U/L Urine Color Light Yellow Urine Appearance Clear (Clear) Urine pH 6.5 (5.0-8.0) Ur Specific [place] 1.020 (1.001-1.035) Urine Protein Trace H (Negative) Urine Glucose (UA) Negative (Negative) Urine Ketones Negative (Negative) Urine Blood Negative (Negative) Urine Nitrite Negative (Negative) Urine Bilirubin Negative (Negative) Urine Urobilinogen <2.0 (<2.0) mg/dL Ur Leukocyte Esterase Negative (Negative) Disposition Clinical Impression: Abdominal pain, IBS (irritable bowel syndrome) Disposition: HOME SELF-CARE Condition: Good Instructions (If sedation given, give patient instructions): Abdominal Pain (ED) Additional Instructions: Return to the emergency department for new or worsening symptoms. Recommend follow-up with your primary care provider next week for further evaluation. Is patient prescribed a controlled substance at d/c from ED?: No Referrals: Sumeet Mejias III, MD [Primary Care Provider] - 1-2 days Time of Disposition: 22:51
[2024-03-25] MEDS: SODIUM CHLORIDE 0.9% 1,000 ML IV STA (19:52)
[2024-03-25] MEDS: MORPHINE SULFATE 2 MG/ML SYRINGE IVP ONE ×2 (19:54→23:00)
[2024-03-25] MEDS: ONDANSETRON 4 MG/2 ML VIAL IVP STA (19:54)
[2024-03-25 20:15] LABS: Basophils % (A) 0 %; Eosinophils # (A) 0.1 k/uL (0-0.7); Eosinophils % (A) 1 %; HCT 48.6 % (39.0-53.0); HGB 16.3 gm/dL (13.0-17.5); Lymphocytes # (A) 2.4 k/uL (1.0-4.8); Lymphocytes % (A) 18 %; MCH 30.9 pg (25.0-35.0); MCHC 33.5 g/dL (31.0-37.0); MCV 92.1 fL (80.0-100.0); Mean Platelet Volume 7.7; Monocytes # (A) 0.8 k/uL (0-1.0); Monocytes % (A) 6 %; Neutrophils # (A) 10.2 k/uL (1.3-7.7); Neutrophils % (A) 74 %; Platelet Count 261 k/uL (150-450); RBC 5.28 m/uL (4.30-5.90); RDW 13.5 % (11.5-15.5); WBC 13.7 k/uL (3.8-10.6)
[2024-03-25 20:46] LABS: ALT 29 U/L (4-49); AST 28 U/L (17-59); African American GFR (CKD) >90 (>60 ml/min/1.73 sqM); Albumin 4.6 g/dL (3.5-5.0); Alkaline Phosphatase 87 U/L (38-126); Amylase 32 U/L (30-110); Anion Gap 10 mmol/L; Blood Urea Nitrogen 13 mg/dL (9-20); Calcium 9.3 mg/dL (8.4-10.2); Carbon Dioxide 19 mmol/L (22-30); Chloride 114 mmol/L (98-107); Glucose 77 mg/dL (74-99); Lipase 27 U/L (23-300); Non-African American GFR(CKD) >90 (>60 ml/min/1.73 sqM); Potassium 3.8 mmol/L (3.5-5.1); Sodium 143 mmol/L (137-145); Total Bilirubin 1.2 mg/dL (0.2-1.3); Total Protein 6.6 g/dL (6.3-8.2)
[2024-03-25 21:29] LABS: Appearance,Urine Clear (Clear); Bilirubin,Urine Negative (Negative); Blood,Urine Negative (Negative); Color,Urine Light Yellow; Glucose,Urine (UA) Negative (Negative); Ketones,Urine Negative (Negative); Leukocyte Esterase,Urine Negative (Negative); Nitrite,Urine Negative (Negative); PH, Urine 6.5 (5.0-8.0); Protein,Urine Trace (Negative); Urobilinogen,Urine <2.0 mg/dL (<2.0)
[2024-03-25 23:12] VITALS: BP 125/73; PULSE 81; RESP 17
== END 2024-03-25 23:16 | disposition home or self-care (01) ==
LOC: EC 19:04
DX: K58.9 Irritable bowel syndrome, unspecified (principal); Z88.8 Allergy status to other drugs, medicaments and biological substances; Z87.891 Personal history of nicotine dependence
CPT/HCPCS: 82075; 36415; 80053; 82150; 83690; 85025; 81003; 99284; 96374; 96376; 96361; J2270

== ENCOUNTER 2024-04-05 16:01 | Emergency (ER) | payer OTHER ==
[2024-04-05 16:07] VITALS: RESP 18; TEMP 98
--- NOTE | 2024-04-05 16:17 | ED ---
GI Bleed HPI - General Source: patient, RN notes reviewed Mode of arrival: wheelchair Limitations: no limitations <Aleta Lopez - Last Filed: 04/05/24 16:15> - General Source: patient, RN notes reviewed Mode of arrival: wheelchair Limitations: no limitations <Roly Valdivia - Last Filed: 04/05/24 21:13> - General Chief complaint: Abdominal Pain Stated complaint: ab pain Time Seen by Provider: 04/05/24 16:15 - History of Present Illness Initial comments: Quick Note: This is a 33-year-old male who presents to the emergency department for abdominal pain and dark red blood in his stool. States that it started yesterday. Abdominal pain is described as diffuse. Denies any nausea or vomiting. He did just have a scope with VERONICA Handy, and was advised that he had gastritis. (Aleta Lopez) Patient is a 33-year-old male presenting to the emergency department. Patient states onset of symptoms was this morning. Abdominal discomfort is diffuse, more midline. Patient has some nausea, no vomiting. Patient states he did have a recent scope and diagnosed with gastritis. Patient states he had 2 bowel movements with a small amount of blood only while wiping. Patient's history is inconsistent. Patient states he does have a history of similar symptoms previously, then denies it. Patient states he did have a small amount of blood while wiping and then denies that later. (Roly Valdivia) - Related Data Home Medications Medication Instructions Recorded Confirmed ALPRAZolam [Xanax] 1 mg PO QID PRN 10/21/22 03/25/24 Hyoscyamine Sulfate [Hyoscyamine 0.125 mg SL Q4HR PRN 03/22/24 03/25/24 Sulfate SL] Temazepam [Restoril] 15 mg PO HS 03/22/24 03/25/24 Nicotine 14Mg/24Hr Patch [Habitrol 1 patch TRANSDERM DIRECTED 03/25/24 03/25/24 14Mg/24Hr Patch] fluvoxaMINE MALEATE 100 mg PO HS 03/25/24 03/25/24 Previous Rx's Medication Instructions Recorded lamoTRIgine [LaMICtal] 100 mg PO HS 30 Days tab 06/05/22 Nicotine 21Mg/24Hr Patch [Habitrol] 1 patch TRANSDERM DAILY #30 patch 10/23/22 rOPINIRole HCL [Requip] 0.25 mg PO HS #30 tab 10/23/22 Allergies Allergy/AdvReac Type Severity Reaction Status Date / Time aripiprazole [From Abilify] Allergy Unknown Agitation Verified 04/05/24 16:07 cariprazine [From Vraylar] Allergy Unknown Agitation Verified 04/05/24 16:07 citalopram [From Celexa] Allergy Unknown Agitation Verified 04/05/24 16:07 divalproex sodium Allergy Unknown Agitation Verified 04/05/24 16:07 [From Depakote] paroxetine [From Paxil] Allergy Unknown Agitation Verified 04/05/24 16:07 sertraline [From Zoloft] Allergy Unknown Agitation Verified 04/05/24 16:07 phenobarbital AdvReac Severe Rapid Verified 04/05/24 16:07 Heart Rate zolpidem tartrate AdvReac Unknown Altered Verified 04/05/24 16:07 [From Ambien] Mental Status estropipate [From Ogen 2.5] AdvReac Twitching Verified 04/05/24 16:07 of Legs haloperidol [From Haldol] AdvReac Agitation Verified 04/05/24 16:07 methylprednisolone AdvReac Altered Verified 04/05/24 16:07 [From Solu-Medrol] Mental Status Review of Systems ROS Other: All systems not noted in ROS Statement are negative. <Aleta Lopez - Last Filed: 04/05/24 16:15> ROS Other: All systems not noted in ROS Statement are negative. Constitutional: Denies: fever Eyes: Denies: eye pain ENT: Denies: ear pain Respiratory: Denies: cough Cardiovascular: Denies: chest pain Gastrointestinal: Reports: as per HPI, abdominal pain Musculoskeletal: Denies: back pain <Roly Valdivia - Last Filed: 04/05/24 21:13> ROS Statement: Those systems with pertinent positive or pertinent negative responses have been documented in the HPI. 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 PT IS ABLE TO MAKE DECISIONS FOR HISSELF History of Any Multi-Drug Resistant Organisms: None Reported Past Surgical History: No Surgical Hx Reported, Tonsillectomy Additional Past Surgical History / Comment(s): wisdom teeth removed. Past Anesthesia/Blood Transfusion Reactions: No Reported Reaction Additional Past Anesthesia/Blood Transfusion Reaction / Comment(s): NEVER HAD BLOOD TRANSFUSION Past Psychological History: ADD/ADHD, Anxiety, Bipolar, Depression, PTSD Smoking Status: Former smoker Past Alcohol Use History: None Reported Past Drug Use History: None Reported - Past Family History Sister(s) Additional Family Medical History / Comment(s): He has one sister that is healthy. He also has a 4-year-old daughter that is healthy. Father Family Medical History: GERD/Reflux Additional Family Medical History / Comment(s): DAD HAS ALSO NEVER BEEN AN ALCOHOLIC-RARELY, RARELY DRINKS. Mother Family Medical History: Cancer Additional Family Medical History / Comment(s): MOM STATES SHE HAS NEVER BEEN AN ALCOHOLIC-MOM RARELY ,RARELY DRINKS. HX THYROID CANCER <Aleta Lopez - Last Filed: 04/05/24 16:15> General Exam Limitations: no limitations <Aleta Lopez - Last Filed: 04/05/24 16:15> Limitations: no limitations General appearance: alert, in no apparent distress Head exam: Present: normocephalic Eye exam: Present: normal appearance Neck exam: Present: normal inspection Respiratory exam: Present: normal lung sounds bilaterally Cardiovascular Exam: Present: regular rate, normal rhythm GI/Abdominal exam: Present: soft, tenderness (Mild diffuse tenderness), normal bowel sounds. Absent: distended, guarding, rebound, rigid, pulsatile mass Rectal exam: Present: normal inspection, normal rectal tone, other (There is some stool high in the rectal vault). Absent: black stool, bloody stool Extremities exam: Present: normal inspection Neurological exam: Present: alert Psychiatric exam: Present: normal affect, normal mood Skin exam: Present: normal color <Roly Valdivia - Last Filed: 04/05/24 21:13> - General Exam Comments Initial Comments: Visual Physical Exam Vital signs reviewed General: Well-appearing, nontoxic, no acute distress. Head: Normocephalic, atraumatic Eyes: PERRLA, EOMI ENT: Airway patent Chest: Nonlabored breathing Skin: No visual rash, normal skin tone Neuro: Alert and oriented 3 Musculoskeletal: No gross abnormalities (Aleta Lopez) Course Vital Signs 04/05/24 16:05 Temperature 98.0 F Pulse Rate 87 Respiratory 18 Rate Blood Pressure 133/89 O2 Sat by Pulse 99 Oximetry Medical Decision Making <Aleta Lopez - Last Filed: 04/05/24 16:15> - Lab Data Result diagrams: 04/05/24 18:16 04/05/24 18:16 <Roly Valdivia - Last Filed: 04/05/24 21:13> - Medical Decision Making I performed the QuickNote portion of this chart. Signed Aleta Lopez PA-C. (Aleta Lopez) Was pt. sent in by a medical professional or institution (LINO Patel, BUSINESS ANALYTICS FACULTY MEMBER, urgent care, hospital, or usp...) When possible be specific @ -No Did you speak to anyone other than the patient for history (EMS, parent, family, police, friend...)? What history was obtained from this source @ -No Did you review nursing and triage notes (agree or disagree)? Why? @ -I reviewed and agree with nursing and triage notes Were old charts reviewed (outside hosp., previous admission, EMS record, old EKG, old radiological studies, urgent care reports/EKG's, usp records)? Report findings @ -No old charts were reviewed Differential Diagnosis (chest pain, altered mental status, abdominal pain women, abdominal pain men, vaginal bleeding, weakness, fever, dyspnea, syncope, headache, dizziness, GI bleed, back pain, seizure, CVA, palpatations, mental health, musculoskeletal)? @ -Differential Abdominal Pain Men: Appendicitis, cholecystitis, diverticulosis, ischemic bowel, pancreatitis, hepatitis, UTI, gastroenteritis, AAA, incarcerated hernia, bowel obstruction, constipation, inflammatory bowel, hepatitis, peptic ulcer disease, splenic infarction, perforated viscus, testicular torsion, this is not meant to be an all-inclusive list EKG interpreted by me (3pts min.). @ -As above X-rays interpreted by me (1pt min.). @ -None done CT interpreted by me (1pt min.). @ -CT scan abdomen pelvis does not reveal acute abnormality. There is stool in the rectum U/S interpreted by me (1pt. min.). @ -None done What testing was considered but not performed or refused? (CT, X-rays, U/S, labs)? Why? @ -None What meds were considered but not given or refused? Why? @ -None Did you discuss the management of the patient with other professionals (professionals i.e. , PA, BUSINESS ANALYTICS FACULTY MEMBER, lab, RT, psych nurse, vp digital marketing social media and crm, bilingual sales assistant, teacher, telecommunications officer, watch case polisher)? Give summary @ -No Was smoking cessation discussed for >3mins.? @ -No Was critical care preformed (if so, how long)? @ -No Were there social determinants of health that impacted care today? How? (Homelessness, low income, unemployed, alcoholism, drug addiction, transportation, low edu. Level, literacy, decrease access to med. care, [facility], rehab)? @ -No Was there de-escalation of care discussed even if they declined (Discuss DNR or withdrawal of care, Hospice)? DNR status @ -No What co-morbidities impacted this encounter? (DM, HTN, Smoking, COPD, CAD, Cancer, CVA, ARF, Chemo, Hep., AIDS, mental health diagnosis, sleep apnea, morbid obesity)? @ -None Was patient admitted / discharged? Hospital course, mention meds given and route, prescriptions, significant lab abnormalities, going to OR and other pertinent info. @ -Patient reevaluated and resting comfortably in bed. Abdomen soft and nontender. Bleeding while in the emergency department. Patient will be given fluids and follow-up recommendation. Patient will be provided enema prior to discharge patient will discharge Undiagnosed new problem with uncertain prognosis? @ -No Drug Therapy requiring intensive monitoring for toxicity (Heparin, Nitro, Insulin, Cardizem)? @ -No Were any procedures done? @ -No Diagnosis/symptom? @ -Abdominal pain Acute, or Chronic, or Acute on Chronic? @ -Acute Uncomplicated (without systemic symptoms) or Complicated (systemic symptoms)? @ -Default Side effects of treatment? @ -No Exacerbation, Progression, or Severe Exacerbation? @ -No Poses a threat to life or bodily function? How? (Chest pain, [place], [place], pneumonia, PE, COPD, DKA, ARF, appy, cholecystitis, CVA, Diverticulitis, Homicidal, Suicidal, threat to staff... and all critical care pts) @ -No (Roly Valdivia) - Lab Data Lab Results 04/05/24 04/05/2424 Range/Units 18:16 18:16 18:16 WBC 13.3 H (3.8-10.6) k/uL RBC 5.14 (4.30-5.90) m/uL Hgb 16.4 (13.0-17.5) gm/dL Hct 48.3 (39.0-53.0) % MCV 94.0 (80.0-100.0) fL MCH 31.9 (25.0-35.0) pg MCHC 33.9 (31.0-37.0) g/dL RDW 13.1 (11.5-15.5) % Plt Count 262 (150-450) k/uL MPV 7.8 Neutrophils % 73 % Lymphocytes % 20 % Monocytes % 4 % Eosinophils % 2 % Basophils % 0 % Neutrophils # 9.7 H (1.3-7.7) k/uL Lymphocytes # 2.6 (1.0-4.8) k/uL Monocytes # 0.6 (0-1.0) k/uL Eosinophils # 0.3 (0-0.7) k/uL Basophils # 0.0 (0-0.2) k/uL PT 10.0 (10.0-12.5) sec INR 0.9 (<1.2) APTT 26.7 (22.0-30.0) sec Sodium 139 (137-145) mmol/L Potassium 4.5 (3.5-5.1) mmol/L Chloride 108 H (98-107) mmol/L Carbon Dioxide 25 (22-30) mmol/L Anion Gap 6 mmol/L BUN 10 (9-20) mg/dL Creatinine 0.59 L (0.66-1.25) mg/dL Est GFR (CKD-EPI)AfAm >90 (>60 ml/min/1.73 sqM) Est GFR (CKD-EPI)NonAf >90 (>60 ml/min/1.73 sqM) Glucose 79 (74-99) mg/dL Plasma Lactic Acid Socrates (0.7-2.0) mmol/L Calcium 10.1 (8.4-10.2) mg/dL Magnesium 1.7 (1.6-2.3) mg/dL Total Bilirubin 0.5 (0.2-1.3) mg/dL AST 43 (17-59) U/L ALT 42 (4-49) U/L Alkaline Phosphatase 84 (38-126) U/L Total Protein 7.0 (6.3-8.2) g/dL Albumin 4.8 (3.5-5.0) g/dL Lipase 21 L (23-300) U/L 04/05/24 Range/Units 18:16 WBC (3.8-10.6) k/uL RBC (4.30-5.90) m/uL Hgb (13.0-17.5) gm/dL Hct (39.0-53.0) % MCV (80.0-100.0) fL MCH (25.0-35.0) pg MCHC (31.0-37.0) g/dL RDW (11.5-15.5) % Plt Count (150-450) k/uL MPV Neutrophils % % Lymphocytes % % Monocytes % % Eosinophils % % Basophils % % Neutrophils # (1.3-7.7) k/uL Lymphocytes # (1.0-4.8) k/uL Monocytes # (0-1.0) k/uL Eosinophils # (0-0.7) k/uL Basophils # (0-0.2) k/uL PT (10.0-12.5) sec INR (<1.2) APTT (22.0-30.0) sec Sodium (137-145) mmol/L Potassium (3.5-5.1) mmol/L Chloride (98-107) mmol/L Carbon Dioxide (22-30) mmol/L Anion Gap mmol/L BUN (9-20) mg/dL Creatinine (0.66-1.25) mg/dL Est GFR (CKD-EPI)AfAm (>60 ml/min/1.73 sqM) Est GFR (CKD-EPI)NonAf (>60 ml/min/1.73 sqM) Glucose (74-99) mg/dL Plasma Lactic Acid Socrates 1.4 (0.7-2.0) mmol/L Calcium (8.4-10.2) mg/dL Magnesium (1.6-2.3) mg/dL Total Bilirubin (0.2-1.3) mg/dL AST (17-59) U/L ALT (4-49) U/L Alkaline Phosphatase (38-126) U/L Total Protein (6.3-8.2) g/dL Albumin (3.5-5.0) g/dL Lipase (23-300) U/L Disposition <Aleta Lopez - Last Filed: 04/05/24 16:15> Is patient prescribed a controlled substance at d/c from ED?: No Time of Disposition: 20:02 <Roly Valdivia - Last Filed: 04/05/24 21:13> Clinical Impression: Abdominal pain Disposition: HOME SELF-CARE Condition: Stable Instructions (If sedation given, give patient instructions): Abdominal Pain (ED) Additional Instructions: Please do follow-up with primary care physician in the next day or 2 for sandro nguyen. Return for increased pain, fever, vomiting, worsening or changing symptoms or other concerns Referrals: Sumeet Mejias III, MD [Primary Care Provider] - 1-2 days
[2024-04-05 18:34] LABS: Basophils % (A) 0 %; Eosinophils # (A) 0.3 k/uL (0-0.7); Eosinophils % (A) 2 %; HCT 48.3 % (39.0-53.0); HGB 16.4 gm/dL (13.0-17.5); Lymphocytes # (A) 2.6 k/uL (1.0-4.8); Lymphocytes % (A) 20 %; MCH 31.9 pg (25.0-35.0); MCHC 33.9 g/dL (31.0-37.0); Mean Platelet Volume 7.8; Monocytes # (A) 0.6 k/uL (0-1.0); Monocytes % (A) 4 %; Neutrophils # (A) 9.7 k/uL (1.3-7.7); Neutrophils % (A) 73 %; Platelet Count 262 k/uL (150-450); RBC 5.14 m/uL (4.30-5.90); RDW 13.1 % (11.5-15.5); WBC 13.3 k/uL (3.8-10.6)
[2024-04-05 18:44] LABS: INR 0.9 (<1.2)
[2024-04-05 18:45] LABS: Partial Thromboplastin Time 26.7 sec (22.0-30.0)
[2024-04-05 18:48] LABS: ALT 42 U/L (4-49); African American GFR (CKD) >90 (>60 ml/min/1.73 sqM); Albumin 4.8 g/dL (3.5-5.0); Anion Gap 6 mmol/L; Blood Urea Nitrogen 10 mg/dL (9-20); Calcium 10.1 mg/dL (8.4-10.2); Carbon Dioxide 25 mmol/L (22-30); Chloride 108 mmol/L (98-107); Glucose 79 mg/dL (74-99); Lipase 21 U/L (23-300); Non-African American GFR(CKD) >90 (>60 ml/min/1.73 sqM); Sodium 139 mmol/L (137-145); Total Bilirubin 0.5 mg/dL (0.2-1.3)
[2024-04-05 19:02] LABS: AST 43 U/L (17-59); Alkaline Phosphatase 84 U/L (38-126); Magnesium 1.7 mg/dL (1.6-2.3); Potassium 4.5 mmol/L (3.5-5.1)
--- NOTE | 2024-04-05 19:12 | CT ---
EXAMINATION TYPE: CT abdomen pelvis w con CT DLP: 1145.8 mGycm, Automated exposure control for dose reduction was used. DATE OF EXAM: 04/05/2024 6:34 PM COMPARISON: CT abdomen pelvis 03/03/2024. CLINICAL INDICATION:Male, 33 years old with history of abp; Pt arrives with c/o severe abdominal pain and blood in stool(dark). TECHNIQUE: Axial CT abdomen pelvis w con;Sagittal and coronal reformats were created on a separate w orkstation. Contrast used:100 ml mL of Isovue 300 with IV Contrast, (none if empty) Oral contrast used: without Oral Contrast (none if empty) FINDINGS: LOWER CHEST: Unremarkable ABDOMEN LIVER: Unremarkable GALLBLADDER AND BILE DUCTS: Unremarkable. PANCREAS: Unremarkable. SPLEEN: Unremarkable. ADRENAL GLANDS: Unremarkable. KIDNEYS AND URETERS: No evidence of hydronephrosis or renal calculus. The ureters are unremarkable. PELVIS BLADDER: Unremarkable REPRODUCTIVE: Unremarkable. ABDOMEN & PELVIS STOMACH AND BOWEL: Stomach is grossly unremarkable. Small bowel is of normal caliber. No evidence of bowel obstruction. Rectal fecaloma seen measuring 6.8 cm. PERITONEUM/RETROPERITONEUM: No evidence of pneumoperitoneum or free fluid. VASCULATURE: No evidence of aortic aneurysm. MUSCULOSKELETAL: No acute osseous abnormalities LYMPH NODES: No gross evidence for lymphadenopathy. SOFT TISSUE/ABDOMINAL WALL: Tiny fat filled umbilical hernia. IMPRESSION: No acute intra-abdominal/pelvic process.
[2024-04-05] MEDS: ACETAMINOPHEN IV (For NPO) 1,000 MG in EMPTY BAG 1 BAG IVPB STA (20:24)
[2024-04-05] MEDS: SODIUM CHLORIDE 0.9% 1,000 ML IV STA (20:25)
[2024-04-05] MEDS: LACTULOSE 20 GM/30 ML CUP PO ONE (20:26)
[2024-04-05] MEDS: bisacodyL 10 MG SUPP RECTAL STA (20:26)
[2024-04-05 21:32] VITALS: BP 134/90; PULSE 90
[2024-04-05] MEDS: NA PHOS,M-B/NA PHOS,DI-BA 133 ML ENEMA RECTAL STA (21:49)
== END 2024-04-05 21:50 | disposition home or self-care (01) ==
LOC: EC 16:01
DX: R10.9 Unspecified abdominal pain (principal); Z87.891 Personal history of nicotine dependence; Z88.8 Allergy status to other drugs, medicaments and biological substances; Z87.442 Personal history of urinary calculi
CPT/HCPCS: 36415; 80053; 83605; 83690; 83735; 85025; 85610; 85730; 74177; 99284; 96374; 96361; J0131; Q9967

== ENCOUNTER 2024-06-29 04:01 | Emergency (ER) | payer OTHER ==
[2024-06-29] MEDS: SODIUM CHLORIDE 0.9% 1,000 ML IV STA (06:22)
[2024-06-29] MEDS: MORPHINE SULFATE 4 MG/ML SYRINGE IVP STA (06:22)
[2024-06-29] MEDS: ONDANSETRON 4 MG/2 ML VIAL IVP STA (06:25)
[2024-06-29] MEDS: PANTOPRAZOLE 40 MG/10 ML VIAL IVP STA (06:25)
[2024-06-29 06:28] LABS: Basophils % (A) 0 %; Eosinophils # (A) 0.2 k/uL (0-0.7); Eosinophils % (A) 2 %; HCT 48.8 % (39.0-53.0); HGB 16.9 gm/dL (13.0-17.5); Lymphocytes # (A) 2.8 k/uL (1.0-4.8); Lymphocytes % (A) 35 %; MCH 31.4 pg (25.0-35.0); MCHC 34.5 g/dL (31.0-37.0); Mean Platelet Volume 8.3; Monocytes # (A) 0.4 k/uL (0-1.0); Monocytes % (A) 5 %; Neutrophils # (A) 4.6 k/uL (1.3-7.7); Neutrophils % (A) 57 %; Platelet Count 198 k/uL (150-450); RBC 5.36 m/uL (4.30-5.90); RDW 13.3 % (11.5-15.5); WBC 8.1 k/uL (3.8-10.6)
--- NOTE | 2024-06-29 06:32 | ED ---
General Adult HPI - General Source: patient, RN notes reviewed, old records reviewed Mode of arrival: ambulatory <Jamari Vegas - Last Filed: 06/29/24 06:45> <Brando Bowden - Last Filed: 06/29/24 08:37> - General Chief complaint: Abdominal Pain Stated complaint: abdominal pain Time Seen by Provider: 06/29/24 05:21 - History of Present Illness Initial comments: Is a 34-year-old male who presents emergency department complaining of abdominal pain. Was recently diagnosed with IBS over the summer and has been dealing with worsening abdominal pain at home. Patient does have a guardian, his mother who called ahead to express that patient has been dealing with worsening pain and wanted to be evaluated. Patient endorses diarrhea. Denies nausea or vomiting. Denies constipation. States he has diffuse abdominal discomfort that is somewhat chronic but worse lately. Denies chest pain or shortness of breath. Denies any fevers or chills. Has no urinary complaints. Presents for further evaluation at this time.Denies any suicidal or homicidal ideations. Denies any hallucinations. Did make statements regarding depression at the triage desk but states it is mostly related to his continuing abdominal pain. No threat to himself or others. (Jamari Vegas) - Related Data Home Medications Medication Instructions Recorded Confirmed ALPRAZolam [Xanax] 1 mg PO QID PRN 10/21/22 03/25/24 Hyoscyamine Sulfate [Hyoscyamine 0.125 mg SL Q4HR PRN 03/22/24 03/25/24 Sulfate SL] Temazepam [Restoril] 15 mg PO HS 03/22/24 03/25/24 Nicotine 14Mg/24Hr Patch [Habitrol 1 patch TRANSDERM DIRECTED 03/25/24 03/25/24 14Mg/24Hr Patch] fluvoxaMINE MALEATE 100 mg PO HS 03/25/24 03/25/24 Previous Rx's Medication Instructions Recorded lamoTRIgine [LaMICtal] 100 mg PO HS 30 Days tab 06/05/22 Nicotine 21Mg/24Hr Patch [Habitrol] 1 patch TRANSDERM DAILY #30 patch 10/23/22 rOPINIRole HCL [Requip] 0.25 mg PO HS #30 tab 10/23/22 Allergies Allergy/AdvReac Type Severity Reaction Status Date / Time aripiprazole [From Abilify] Allergy Unknown Agitation Verified 06/29/24 04:16 cariprazine [From Vraylar] Allergy Unknown Agitation Verified 06/29/24 04:16 citalopram [From Celexa] Allergy Unknown Agitation Verified 06/29/24 04:16 divalproex sodium Allergy Unknown Agitation Verified 06/29/24 04:16 [From Depakote] paroxetine [From Paxil] Allergy Unknown Agitation Verified 06/29/24 04:16 sertraline [From Zoloft] Allergy Unknown Agitation Verified 06/29/24 04:16 phenobarbital AdvReac Severe Rapid Verified 06/29/24 04:16 Heart Rate zolpidem tartrate AdvReac Unknown Altered Verified 06/29/24 04:16 [From Ambien] Mental Status estropipate [From Ogen 2.5] AdvReac Twitching Verified 06/29/24 04:16 of Legs haloperidol [From Haldol] AdvReac Agitation Verified 06/29/24 04:16 methylprednisolone AdvReac Altered Verified 06/29/24 04:16 [From Solu-Medrol] Mental Status Review of Systems ROS Other: All systems not noted in ROS Statement are negative. <Jamari Vegas - Last Filed: 06/29/24 06:45> ROS Other: All systems not noted in ROS Statement are negative. <Brando Bowden - Last Filed: 06/29/24 08:37> ROS Statement: Those systems with pertinent positive or pertinent negative responses have been documented in the HPI. Review of Systems: CONST: Denies fever EYES: Denies blurry vision ENT: Denies nasal congestion C/V: Denies Chest pain RESP: Denies shortness of breath GI: Endorses abdominal pain : Denies dysuria SKIN: Denies rash. MSK: Denies joint pain. 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 PT IS ABLE TO MAKE DECISIONS FOR HISSELF History of Any Multi-Drug Resistant Organisms: None Reported Past Surgical History: No Surgical Hx Reported, Tonsillectomy Additional Past Surgical History / Comment(s): wisdom teeth removed. Past Anesthesia/Blood Transfusion Reactions: No Reported Reaction Additional Past Anesthesia/Blood Transfusion Reaction / Comment(s): NEVER HAD BLOOD TRANSFUSION Past Psychological History: ADD/ADHD, Anxiety, Bipolar, Depression, PTSD Smoking Status: Former smoker Past Alcohol Use History: None Reported Past Drug Use History: None Reported - Past Family History Sister(s) Additional Family Medical History / Comment(s): He has one sister that is healt hy. He also has a 4-year-old daughter that is healthy. Father Family Medical History: GERD/Reflux Additional Family Medical History / Comment(s): DAD HAS ALSO NEVER BEEN AN ALCOHOLIC-RARELY, RARELY DRINKS. Mother Family Medical History: Cancer Additional Family Medical History / Comment(s): MOM STATES SHE HAS NEVER BEEN AN ALCOHOLIC-MOM RARELY ,RARELY DRINKS. HX THYROID CANCER <Jamari Vegas - Last Filed: 06/29/24 06:45> General Exam <Jamari Vegas - Last Filed: 06/29/24 06:45> - General Exam Comments Initial Comments: General: Appears in mild distress secondary to abdominal discomfort. HEAD: Normal with no signs of head trauma. EYES: PERRLA, EOMI, conjunctiva normal, no discharge. ENT: Hearing grossly intact, normal oropharynx. RESPIRATORY: Clear breath sounds bilaterally. No wheezes, rales, or rhonchi. C/V: Regular rate and rhythm. S1 and S2 auscultated, no edema, peripheral pulses 2+ and intact throughout ABD: Abdomen is soft, nondistended. Generalized tenderness to palpation with no focal area. No guarding or rebound tenderness. No peritoneal signs. EXT: Normal range of motion, no obvious deformity SKIN: No rashes or lesions observed on exposed skin. NEURO: Alert and oriented x 4. (Jamari Vegas) Course Vital Signs 06/29/24 06/29/24 06/29/24 04:11 06:25 07:40 Temperature 97.7 F 98.5 F Pulse Rate 69 Respiratory 18 17 Rate Blood Pressure 115/71 110/84 110/63 O2 Sat by Pulse 99 Oximetry 06/29/24 07:54 Temperature Pulse Rate 72 Respiratory Rate Blood Pressure O2 Sat by Pulse 100 Oximetry Medical Decision Making - Lab Data Result diagrams: 06/29/24 05:25 <Jamari Vegas - Last Filed: 06/29/24 06:45> - Lab Data Result diagrams: 06/29/24 05:25 06/29/24 07:07 <Brando Bowden N - Last Filed: 06/29/24 08:37> - Medical Decision Making Was pt. sent in by a medical professional or institution (, [facility], SOLAR [employer]ERGY SYSTEM INSTALLER HELPER, urgent care, hospital, or penitentiary...) When possible be specific @ -No Did you speak to anyone other than the patient for history (EMS, parent, family, police, friend...)? What history was obtained from this source @ -No Did you review nursing and triage notes (agree or disagree)? Why? @ -I reviewed and agree with nursing and triage notes Were old charts reviewed (outside hosp., previous admission, EMS record, old EKG, old radiological studies, urgent care reports/EKG's, penitentiary records)? Report findings @ -No old charts were reviewed Differential Diagnosis (chest pain, altered mental status, abdominal pain women, abdominal pain men, vaginal bleeding, weakness, fever, dyspnea, syncope, headache, dizziness, GI bleed, back pain, seizure, CVA, palpatations, mental health, musculoskeletal)? @ -Differential Abdominal Pain Men: Appendicitis, cholecystitis, diverticulosis, ischemic bowel, pancreatitis, hepatitis, UTI, gastroenteritis, AAA, incarcerated hernia, bowel obstruction, constipation, inflammatory bowel, hepatitis, peptic ulcer disease, splenic infarction, perforated viscus, testicular torsion, this is not meant to be an all-inclusive list EKG interpreted by me (3pts min.). @ -None done X-rays interpreted by me (1pt min.). @ -None done CT interpreted by me (1pt min.). @ -Pending U/S interpreted by me (1pt. min.). @ -None done What testing was considered but not performed or refused? (CT, X-rays, U/S, labs)? Why? @ -None What meds were considered but not given or refused? Why? @ -None Did you discuss the management of the patient with other professionals (professionals i.e. LINO Patel, SOLAR [employer]ERGY SYSTEM INSTALLER HELPER, lab, RT, psych nurse, oncology social work, bariatric nurse, teacher, chief marketing officer, showcase maker)? Give summary @ -No Was smoking cessation discussed for >3mins.? @ -No Was critical care preformed (if so, how long)? @ -No Were there social determinants of health that impacted care today? How? (Homelessness, low income, unemployed, alcoholism, drug addiction, transportation, low edu. Level, literacy, decrease access to med. care, [facility], rehab)? @ -No Was there de-escalation of care discussed even if they declined (Discuss DNR or withdrawal of care, Hospice)? DNR status @ -No What co-morbidities impacted this encounter? (DM, HTN, Smoking, COPD, CAD, Cancer, CVA, ARF, Chemo, Hep., AIDS, mental health diagnosis, sleep apnea, morbid obesity)? @ -IBS Was patient admitted / discharged? Hospital course, mention meds given and route, prescriptions, significant lab abnormalities, going to OR and other pertinent info. @ -Patient presents emergency department complaining of progressively worsening abdominal pain. Has a history of IBS. Patient's mother called ahead and she is concerned regarding his pain level. We will obtain abdominal labs as well as CT imaging. Patient will be administered IV fluids, Zofran, analgesia medications. Patient in agreement this plan. Vitals are within acceptable limits. At this time is the enema shift. Patient signed out to Dr. Bowden pending results of workup. Undiagnosed new problem with uncertain prognosis? @ -No Drug Therapy requiring intensive monitoring for toxicity (Heparin, Nitro, Insu peyman, Cardizem)? @ -No Were any procedures done? @ -No (Jamari Vegas) Patient care was signed out awaiting workup for generalized abdominal pain. CT was performed which was negative for acute process. Normal CBC, normal CMP, normal urinalysis. Vital signs are stable. I do feel this patient can follow- up as an outpatient at this time. Patient did state that the abdominal pain was his main issue but that this was causing increased depression. No suicidal or homicidal thoughts. Patient stating that his primary concern was his abdominal pain. (Brando Bowden) - Lab Data Lab Results 06/29/24 06/29/24 06/29/24 Range/Units 05:25 05:25 05:25 WBC 8.1 (3.8-10.6) k/uL RBC 5.36 (4.30-5.90) m/uL Hgb 16.9 (13.0-17.5) gm/dL Hct 48.8 (39.0-53.0) % MCV 91.0 (80.0-100.0) fL MCH 31.4 (25.0-35.0) pg MCHC 34.5 (31.0-37.0) g/dL RDW 13.3 (11.5-15.5) % Plt Count 198 (150-450) k/uL MPV 8.3 Neutrophils % 57 % Lymphocytes % 35 % Monocytes % 5 % Eosinophils % 2 % Basophils % 0 % Neutrophils # 4.6 (1.3-7.7) k/uL Lymphocytes # 2.8 (1.0-4.8) k/uL Monocytes # 0.4 (0-1.0) k/uL Eosinophils # 0.2 (0-0.7) k/uL Basophils # 0.0 (0-0.2) k/uL PT 10.8 (10.0-12.5) sec INR 1.0 (<1.2) APTT 26.8 (22.0-30.0) sec Sodium (137-145) mmol/L Potassium (3.5-5.1) mmol/L Chloride (98-107) mmol/L Carbon Dioxide (22-30) mmol/L Anion Gap mmol/L BUN (9-20) mg/dL Creatinine (0.66-1.25) mg/dL Est GFR (CKD-EPI)AfAm (>60 ml/min/1.73 sqM) Est GFR (CKD-EPI)NonAf (>60 ml/min/1.73 sqM) Glucose (74-99) mg/dL Plasma Lactic Acid Socrates 1.2 (0.7-2.0) mmol/L Calcium (8.4-10.2) mg/dL Total Bilirubin (0.2-1.3) mg/dL AST (17-59) U/L ALT (4-49) U/L Alkaline Phosphatase (38-126) U/L Total Protein (6.3-8.2) g/dL Albumin (3.5-5.0) g/dL Amylase (30-110) U/L Lipase (23-300) U/L Urine Color Urine Appearance (Clear) Urine pH (5.0-8.0) Ur Specific [place] (1.001-1.035) Urine Protein (Negative) Urine Glucose (UA) (Negative) Urine Ketones (Negative) Urine Blood (Negative) Urine Nitrite (Negative) Urine Bilirubin (Negative) Urine Urobilinogen (<2.0) mg/dL Ur Leukocyte Esterase (Negative) 06/29/24 06/29/24 Range/Units 07:07 08:09 WBC (3.8-10.6) k/uL RBC (4.30-5.90) m/uL Hgb (13.0-17.5) gm/dL Hct (39.0-53.0) % MCV (80.0-100.0) fL MCH (25.0-35.0) pg MCHC (31.0-37.0) g/dL RDW (11.5-15.5) % Plt Count (150-450) k/uL MPV Neutrophils % % Lymphocytes % % Monocytes % % Eosinophils % % Basophils % % Neutrophils # (1.3-7.7) k/uL Lymphocytes # (1.0-4.8) k/uL Monocytes # (0-1.0) k/uL Eosinophils # (0-0.7) k/uL Basophils # (0-0.2) k/uL PT (10.0-12.5) sec INR (<1.2) APTT (22.0-30.0) sec Sodium 142 (137-145) mmol/L Potassium 3.7 (3.5-5.1) mmol/L Chloride 110 H (98-107) mmol/L Carbon Dioxide 24 (22-30) mmol/L Anion Gap 8 mmol/L BUN 10 (9-20) mg/dL Creatinine 0.67 (0.66-1.25) mg/dL Est GFR (CKD-EPI)AfAm >90 (>60 ml/min/1.73 sqM) Est GFR (CKD-EPI)NonAf >90 (>60 ml/min/1.73 sqM) Glucose 81 (74-99) mg/dL Plasma Lactic Acid Socrates (0.7-2.0) mmol/L Calcium 9.2 (8.4-10.2) mg/dL Total Bilirubin 1.0 (0.2-1.3) mg/dL AST 26 (17-59) U/L ALT 26 (4-49) U/L Alkaline Phosphatase 80 (38-126) U/L Total Protein 6.5 (6.3-8.2) g/dL Albumin 4.4 (3.5-5.0) g/dL Amylase 34 (30-110) U/L Lipase 22 L (23-300) U/L Urine Color Colorless Urine Appearance Clear (Clear) Urine pH 7.0 (5.0-8.0) Ur Specific [place] 1.033 (1.001-1.035) Urine Protein Negative (Negative) Urine Glucose (UA) Negative (Negative) Urine Ketones Negative (Negative) Urine Blood Negative (Negative) Urine Nitrite Negative (Negative) Urine Bilirubin Negative (Negative) Urine Urobilinogen <2.0 (<2.0) mg/dL Ur Leukocyte Esterase Negative (Negative) Disposition <Jamari Vegas - Last Filed: 06/29/24 06:45> Is patient prescribed a controlled substance at d/c from ED?: No Time of Disposition: 08:37 <Brando Bowden - Last Filed: 06/29/24 08:37> Clinical Impression: Abdominal pain Disposition: HOME SELF-CARE Condition: Fair Instructions (If sedation given, give patient instructions): Abdominal Pain (ED) Referrals: Sumeet Mejias III, MD [Primary Care Provider] - 1-2 days
[2024-06-29 06:39] LABS: Partial Thromboplastin Time 26.8 sec (22.0-30.0); Prothrombin Time 10.8 sec (10.0-12.5)
[2024-06-29 07:48] LABS: Carbon Dioxide 24 mmol/L (22-30); Chloride 110 mmol/L (98-107); Glucose 81 mg/dL (74-99); Potassium 3.7 mmol/L (3.5-5.1); Sodium 142 mmol/L (137-145)
[2024-06-29 07:49] LABS: ALT 26 U/L (4-49); AST 26 U/L (17-59); African American GFR (CKD) >90 (>60 ml/min/1.73 sqM); Albumin 4.4 g/dL (3.5-5.0); Alkaline Phosphatase 80 U/L (38-126); Amylase 34 U/L (30-110); Anion Gap 8 mmol/L; Blood Urea Nitrogen 10 mg/dL (9-20); Calcium 9.2 mg/dL (8.4-10.2); Lipase 22 U/L (23-300); Non-African American GFR(CKD) >90 (>60 ml/min/1.73 sqM); Total Protein 6.5 g/dL (6.3-8.2)
--- NOTE | 2024-06-29 07:53 | CT ---
EXAMINATION TYPE: CT abdomen pelvis w con DATE OF EXAM: 06/29/2024 COMPARISON: 04/05/2024 HISTORY: IBS CT DLP: 927.7 mGycm CONTRAST: CT scan of the abdomen and pelvis is performed with Oral Contrast and with IV Contrast, patient injec mary with 100 mL of Isovue 370. FINDINGS: LUNG BASES-: No visible nodule. No infiltrate. LIVER/GB: No calcified gallstones. No space occupying hepatic lesion. Biliary tree is of normal ca liber. PANCREAS: No inflammation. No distinct mass. SPLEEN: No splenic enlargement. No lesion seen. ADRENALS: No nodule. No thickening. KIDNEYS/BLADDER: No hydronephrosis. No nephrolithiasis. No distinct renal mass. Urinary bladder g rossly unremarkable. BOWEL: Normal appendix. Normal bowel caliber. No inflammation. GENITAL ORGANS: No gross abnormality. LYMPH NODES: No greater than 1cm abdominal or pelvic lymph nodes are appreciated. AORTA: No significant abnormality. OSSEOUS STRUCTURES: No significant abnormality is seen. OTHER: No significant additional abnormality is seen. IMPRESSION: 1. No acute process seen. [facility] Bernice Medellin, , 06/29/2024 7:50 AM
[2024-06-29] MEDS: KETOROLAC 15 MG/ML 1 ML VIAL IVP STA (07:56)
[2024-06-29 08:30] LABS: Appearance,Urine Clear (Clear); Color,Urine Colorless; Protein,Urine Negative (Negative); Specific Gravity,Urine 1.033 (1.001-1.035)
[2024-06-29 08:31] LABS: Bilirubin,Urine Negative (Negative); Blood,Urine Negative (Negative); Glucose,Urine (UA) Negative (Negative); Ketones,Urine Negative (Negative); Leukocyte Esterase,Urine Negative (Negative); Nitrite,Urine Negative (Negative); Urobilinogen,Urine <2.0 mg/dL (<2.0)
[2024-06-29 08:51] VITALS: BP 106/73; PULSE 60; RESP 18; TEMP 98.3
== END 2024-06-29 09:01 | disposition home or self-care (01) ==
LOC: EC 04:01
CPT/HCPCS: 36415; 74177; 80053; 81003; 82150; 83605; 83690; 85025; 85610; 85730; 96361; 96374; 96375; 99284

== ENCOUNTER 2024-07-10 17:38 | Emergency (ER) | payer OTHER ==
--- NOTE | 2024-07-10 18:10 | ED ---
Abdominal Pain HPI - General Source: patient Mode of arrival: ambulatory Limitations: no limitations - History of Present Illness MD Complaint: abdominal pain Onset/Timin -: days(s) Severity scale (1-10): 10 Associated Symptoms: constipation Treatments Prior to Arrival: other (MiraLAX, and Dulcolax) <David Bonds - Last Filed: 07/10/24 18:07> <Dc Calix - Last Filed: 07/11/24 02:23> - General Chief Complaint: Abdominal Pain Stated Complaint: ABD pain/constipation Time Seen by Provider: 07/10/24 17:54 - History of Present Illness Initial Comments: Quick note: This is a 34-year-old male presenting with constipation, fever, abdominal pain (10 out of 10) x 2 days. Patient also endorses insomnia and tremors. Patient states he has difficulty lying supine due to the "hard stool" patient Dors is history of IBS. Endorses being seen in this ER in 06/29 for diarrhea and abdominal pain with no abnormal findings on abdominal/pelvic CT. Endorses use of MiraLAX and Dulcolax with minimal relief. Patient denies chills, chest pain, dyspnea, nausea, vomiting, diarrhea, hematochezia, melena. (David Bonds) 34-year-old male presenting with chief complaint of abdominal pain. Pain is diffuse and nonlocalized. He admits to constipation and states that he has not had a bowel movement over the last 2 days. He has been taking MiraLAX and Dulcolax with minimal relief. No nausea or vomiting. No rectal bleeding. No chest pain, difficulty breathing, chills, cough, congestion, sore throat. Patient endorses history of IBS. Was seen here recently on 06/[address] of the abdomen and pelvis performed (Dc Calix) - Related Data Home Medications Medication Instructions Recorded Confirmed ALPRAZolam [Xanax] 1 mg PO QID PRN 10/21/22 03/25/24 Hyoscyamine Sulfate [Hyoscyamine 0.125 mg SL Q4HR PRN 03/22/24 03/25/24 Sulfate SL] Temazepam [Restoril] 15 mg PO HS 03/22/24 03/25/24 Nicotine 14Mg/24Hr Patch [Habitrol 1 patch TRANSDERM DIRECTED 03/25/24 03/25/24 14Mg/24Hr Patch] fluvoxaMINE MALEATE 100 mg PO HS 03/25/24 03/25/24 Previous Rx's Medication Instructions Recorded lamoTRIgine [LaMICtal] 100 mg PO HS 30 Days tab 06/05/22 Nicotine 21Mg/24Hr Patch [Habitrol] 1 patch TRANSDERM DAILY #30 patch 10/23/22 rOPINIRole HCL [Requip] 0.25 mg PO HS #30 tab 10/23/22 Allergies Allergy/AdvReac Type Severity Reaction Status Date / Time aripiprazole [From Abilify] Allergy Unknown Agitation Verified 07/10/24 17:57 cariprazine [From Vraylar] Allergy Unknown Agitation Verified 07/10/24 17:57 citalopram [From Celexa] Allergy Unknown Agitation Verified 07/10/24 17:57 divalproex sodium Allergy Unknown Agitation Verified 07/10/24 17:57 [From Depakote] paroxetine [From Paxil] Allergy Unknown Agitation Verified 07/10/24 17:57 sertraline [From Zoloft] Allergy Unknown Agitation Verified 07/10/24 17:57 phenobarbital AdvReac Severe Rapid Verified 07/10/24 17:57 Heart Rate zolpidem tartrate AdvReac Unknown Altered Verified 07/10/24 17:57 [From Ambien] Mental Status estropipate [From Ogen 2.5] AdvReac Twitching Verified 07/10/24 17:57 of Legs haloperidol [From Haldol] AdvReac Agitation Verified 07/10/24 17:57 methylprednisolone AdvReac Altered Verified 07/10/24 17:57 [From Solu-Medrol] Mental Status Review of Systems ROS Other: All systems not noted in ROS Statement are negative. <David Bonds - Last Filed: 07/10/24 18:07> ROS Other: All systems not noted in ROS Statement are negative. <Dc Calix - Last Filed: 07/11/24 02:23> ROS Statement: Those systems with pertinent positive or pertinent negative responses have been documented in the HPI. 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 PT IS AB LE TO MAKE DECISIONS FOR HISSELF History of Any Multi-Drug Resistant Organisms: None Reported Past Surgical History: No Surgical Hx Reported, Tonsillectomy Additional Past Surgical History / Comment(s): wisdom teeth removed. Past Anesthesia/Blood Transfusion Reactions: No Reported Reaction Additional Past Anesthesia/Blood Transfusion Reaction / Comment(s): NEVER HAD BLOOD TRANSFUSION Past Psychological History: ADD/ADHD, Anxiety, Bipolar, Depression, PTSD Smoking Status: Current every day smoker Past Alcohol Use History: None Reported Past Drug Use History: Marijuana - Past Family History Sister(s) Additional Family Medical History / Comment(s): He has one sister that is healthy. He also has a 4-year-old daughter that is healthy. Father Family Medical History: GERD/Reflux Additional Family Medical History / Comment(s): DAD HAS ALSO NEVER BEEN AN ALCO HOLIC-RARELY, RARELY DRINKS. Mother Family Medical History: Cancer Additional Family Medical History / Comment(s): MOM STATES SHE HAS NEVER BEEN AN ALCOHOLIC-MOM RARELY ,RARELY DRINKS. HX THYROID CANCER <David Bonds - Last Filed: 07/10/24 18:07> General Exam Limitations: no limitations <David Bonds - Last Filed: 07/10/24 18:07> General appearance: alert, in no apparent distress Head exam: Present: atraumatic, normocephalic, normal inspection Eye exam: Present: normal appearance, EOMI Neck exam: Present: normal inspection. Absent: meningismus Respiratory exam: Present: normal lung sounds bilaterally. Absent: respiratory distress, wheezes, rales, rhonchi, stridor Cardiovascular Exam: Present: regular rate, normal rhythm, normal heart sounds. Absent: systolic murmur, diastolic murmur, rubs, gallop, clicks GI/Abdominal exam: Present: soft, distended, tenderness (Nonlocalized). Absent: guarding, rebound, rigid Neurological exam: Present: alert, oriented X3 Psychiatric exam: Present: normal affect, normal mood Skin exam: Present: warm, dry <Dc Calix - Last Filed: 07/11/24 02:23> - General Exam Comments Initial Comments: Visual Physical Exam Vital signs reviewed General: Well-appearing, nontoxic. Patient demonstrating some distress Head: Normocephalic, atraumatic Eyes: PERRLA, EOMI ENT: Airway patent Chest: Nonlabored breathing Skin: No visual rash, normal skin tone Neuro: Alert and oriented 3 Musculoskeletal: No gross abnormalities (David Bonds) Course Vital Signs 07/10/24 07/10/24 07/10/24 17:52 21:51 21:58 Temperature 100.1 F H 98 F Pulse Rate 94 78 Respiratory 18 16 Rate Blood Pressure 139/84 139/88 O2 Sat by Pulse 98 97 Oximetry Medical Decision Making <David Bonds - Last Filed: 07/10/24 18:07> - Lab Data Result diagrams: 07/10/24 19:30 07/10/24 19:30 <Dc Calix - Last Filed: 07/11/24 02:23> - Medical Decision Making I completed the quick note portion of this chart signed JODIE Lewis (David Bonds) Was pt. sent in by a medical professional or institution (LINO Patel, CUSTOMER RELATIONS REPRESENTATIVE, urgent care, hospital, or half-way...) When possible be specific @ -No Did you speak to anyone other than the patient for history (EMS, parent, family, police, friend...)? What history was obtained from this source @ -No Did you review nursing and triage notes (agree or disagree)? Why? @ -I reviewed and agree with nursing and triage notes Were old charts reviewed (outside hosp., previous admission, EMS record, old EKG, old radiological studies, urgent care reports/EKG's, half-way records)? Report findings @ -No old charts were reviewed Differential Diagnosis (chest pain, altered mental status, abdominal pain women, abdominal pain men, vaginal bleeding, weakness, fever, dyspnea, syncope, headache, dizziness, GI bleed, back pain, seizure, CVA, palpatations, mental health, musculoskeletal)? @ -[facility] Differential Abdominal Pain Men: Appendicitis, cholecystitis, diverticulosis, ischemic bowel, pancreatitis, hepatitis, UTI, gastroenteritis, AAA, incarcerated hernia, bowel obstruction, constipation, inflammatory bowel, hepatitis, peptic ulcer disease, splenic infarction, perforated viscus, testicular torsion... This is not meant to be an all-inclusive list EKG interpreted by me (3pts min.). @ -As above X-rays interpreted by me (1pt min.). @ -KUB x-ray shows moderate to large amount of stool burden throughout the colon. Nonspecific bowel gas pattern without radiographic evidence for acute process CT interpreted by me (1pt min.). @ -None done U/S interpreted by me (1pt. min.). @ -None done What testing was considered but not performed or refused? (CT, X-rays, U/S, labs)? Why? @ -None What meds were considered but not given or refused? Why? @ -None Did you discuss the management of the patient with other professionals (professionals i.e. , PA, CUSTOMER RELATIONS REPRESENTATIVE, lab, RT, psych nurse, certified social workers in health care, consumer safety officer, teacher, special service officer, case management director)? Give summary @ -No Was smoking cessation discussed for >3mins.? @ -No Was critical care preformed (if so, how long)? @ -No Were there social determinants of health that impacted care today? How? (Homelessness, low income, unemployed, alcoholism, drug addiction, transportation, low edu. Level, literacy, decrease access to med. care, fpc, rehab)? @ -No Was there de-escalation of care discussed even if they declined (Discuss DNR or withdrawal of care, Hospice)? DNR status @ -No What co-morbidities impacted this encounter? (DM, HTN, Smoking, COPD, CAD, Cancer, CVA, ARF, Chemo, Hep., AIDS, mental health diagnosis, sleep apnea, morbid obesity)? @ -None Was patient admitted / discharged? Hospital course, mention meds given and route , prescriptions, significant lab abnormalities, going to OR and other pertinent info. @ -34-year-old male presenting with chief complaint of diffuse abdominal pain and constipation. History of IBS. On exam the patient's abdomen is distended. No localized tenderness. KUB x-ray shows moderate to large stool burden throughout the colon. Lab work is grossly unremarkable. Temperature of 100.1 upon arrival, patient given Tylenol and Toradol. Patient is given Fleet enema, still unable to have a bowel movement. He is given magnesium citrate to take at home. Educated on use of medication at home. Patient would like to be discharged. Follow-up with PCP. Report back to ER with any new or worsening symptoms. Discussed return parameters and answered all questions. Patient conveyed verbal understanding and agreed to the plan. I discussed this case in detail with my attending Dr. Garg Undiagnosed new problem with uncertain prognosis? @ -No Drug Therapy requiring intensive monitoring for toxicity (Heparin, Nitro, Insulin, Cardizem)? @ -No Were any procedures done? @ -No Diagnosis/symptom? @ -Constipation Acute, or Chronic, or Acute on Chronic? @ -Acute Uncomplicated (without systemic symptoms) or Complicated (systemic symptoms)? @ -Uncomplicated Side effects of treatment? @ -No Exacerbation, Progression, or Severe Exacerbation? @ -No Poses a threat to life or bodily function? How? (Chest pain, USA, NM, pneumonia, PE, COPD, DKA, ARF, appy, cholecystitis, CVA, Diverticulitis, Homicidal, Suicidal, threat to staff... and all critical care pts) @ -Unlikely (Dc Calix) - Lab Data Lab Results 07/10/24 07/10/24 07/10/24 Range/Units 19:30 19:30 19:30 WBC 8.6 (3.8-10.6) k/uL RBC 5.29 (4.30-5.90) m/uL Hgb 16.2 (13.0-17.5) gm/dL Hct 48.0 (39.0-53.0) % MCV 90.7 (80.0-100.0) fL MCH 30.7 (25.0-35.0) pg MCHC 33.9 (31.0-37.0) g/dL RDW 13.3 (11.5-15.5) % Plt Count 228 (150-450) k/uL MPV 8.0 Neutrophils % 56 % Lymphocytes % 36 % Monocytes % 5 % Eosinophils % 2 % Basophils % 0 % Neutrophils # 4.9 (1.3-7.7) k/uL Lymphocytes # 3.1 (1.0-4.8) k/uL Monocytes # 0.4 (0-1.0) k/uL Eosinophils # 0.2 (0-0.7) k/uL Basophils # 0.0 (0-0.2) k/uL Sodium 141 (137-145) mmol/L Potassium 3.7 (3.5-5.1) mmol/L Chloride 104 (98-107) mmol/L Carbon Dioxide 27 (22-30) mmol/L Anion Gap 10 mmol/L BUN 9 (9-20) mg/dL Creatinine 0.76 (0.66-1.25) mg/dL Est GFR (CKD-EPI)AfAm >90 (>60 ml/min/1.73 sqM) Est GFR (CKD-EPI)NonAf >90 (>60 ml/min/1.73 sqM) Glucose 96 (74-99) mg/dL Plasma Lactic Acid Socrates (0.7-2.0) mmol/L Calcium 10.0 (8.4-10.2) mg/dL Total Bilirubin 0.7 (0.2-1.3) mg/dL AST 27 (17-59) U/L ALT 31 (4-49) U/L Alkaline Phosphatase 83 (38-126) U/L Total Protein 7.4 (6.3-8.2) g/dL Albumin 5.0 (3.5-5.0) g/dL Lipase 23 (23-300) U/L Urine Color Colorless Urine Appearance Clear (Clear) Urine pH 7.0 (5.0-8.0) Ur Specific [place] 1.004 (1.001-1.035) Urine Protein Negative (Negative) Urine Glucose (UA) Negative (Negative) Urine Ketones Negative (Negative) Urine Blood Negative (Negative) Urine Nitrite Negative (Negative) Urine Bilirubin Negative (Negative) Urine Urobilinogen <2.0 (<2.0) mg/dL Ur Leukocyte Esterase Negative (Negative) Influenza Type A (PCR) (Not Detectd) Influenza Type B (PCR) (Not Detectd) RSV (PCR) (Not Detectd) SARS-CoV-2 (PCR) (Not Detectd) 07/10/24 07/10/24 Range/Units 19:30 20:05 WBC (3.8-10.6) k/uL RBC (4.30-5.90) m/uL Hgb (13.0-17.5) gm/dL Hct (39.0-53.0) % MCV (80.0-100.0) fL MCH (25.0-35.0) pg MCHC (31.0-37.0) g/dL RDW (11.5-15.5) % Plt Count (150-450) k/uL MPV Neutrophils % % Lymphocytes % % Monocytes % % Eosinophils % % Basophils % % Neutrophils # (1.3-7.7) k/uL Lymphocytes # (1.0-4.8) k/uL Monocytes # (0-1.0) k/uL Eosinophils # (0-0.7) k/uL Basophils # (0-0.2) k/uL Sodium (137-145) mmol/L Potassium (3.5-5.1) mmol/L Chloride (98-107) mmol/L Carbon Dioxide (22-30) mmol/L Anion Gap mmol/L BUN (9-20) mg/dL Creatinine (0.66-1.25) mg/dL Est GFR (CKD-EPI)AfAm (>60 ml/min/1.73 sqM) Est GFR (CKD-EPI)NonAf (>60 ml/min/1.73 sqM) Glucose (74-99) mg/dL Plasma Lactic Acid Socrates 1.5 (0.7-2.0) mmol/L Calcium (8.4-10.2) mg/dL Total Bilirubin (0.2-1.3) mg/dL AST (17-59) U/L ALT (4-49) U/L Alkaline Phosphatase (38-126) U/L Total Protein (6.3-8.2) g/dL Albumin (3.5-5.0) g/dL Lipase (23-300) U/L Urine Color Urine Appearance (Clear) Urine pH (5.0-8.0) Ur Specific [place] (1.001-1.035) Urine Protein (Negative) Urine Glucose (UA) (Negative) Urine Ketones (Negative) Urine Blood (Negative) Urine Nitrite (Negative) Urine Bilirubin (Negative) Urine Urobilinogen (<2.0) mg/dL Ur Leukocyte Esterase (Negative) Influenza Type A (PCR) Not Detected (Not Detectd) Influenza Type B (PCR) Not Detected (Not Detectd) RSV (PCR) Not Detected (Not Detectd) SARS-CoV-2 (PCR) Not Detected (Not Detectd) Disposition <David Bonds - Last Filed: 07/10/24 18:07> Is patient prescribed a controlled substance at d/c from ED?: No Time of Disposition: 22:06 <Dc Calix - Last Filed: 07/11/24 02:23> Clinical Impression: Constipation Disposition: HOME SELF-CARE Condition: Good Instructions (If sedation given, give patient instructions): Constipation (ED), High Fiber Diet (ED) Additional Instructions: Follow up with PCP. Report back to ER with any new or worsening symptoms. Take magnesium citrate at home, plan to be close to the bathroom for several hours following Referrals: Sumeet Mejias III, MD [Primary Care Provider] - 1-2 days
[2024-07-10] MEDS: ACETAMINOPHEN TAB 325 MG TAB PO STA (19:01)
[2024-07-10] MEDS: KETOROLAC 15 MG/ML 1 ML VIAL IM STA (19:01)
--- NOTE | 2024-07-10 19:22 | XR ---
EXAMINATION TYPE: XR KUB DATE OF EXAM: 07/10/2024 7:04 PM COMPARISON: 10/27/2015 CLINICAL INDICATION: Male, 34 years old with history of Abdominal pain, constipation; TECHNIQUE: One radiographic view of the abdomen was obtained. FINDINGS: Moderate to large amount stool throughout colon. The bowel gas pattern is nonspecific witho ut dilated loops of small or large bowel. . Fecal material and gas are demonstrated throughout the co akhil and rectum. There is no evidence for organomegaly or pneumoperitoneum. The osseous structures are intact. No ab normal calcifications are present. IMPRESSION: Moderate to large amount stool throughout colon. Nonspecific bowel gas pattern without radiographic e vidence for acute process. [facility], , 07/10/2024 7:20 PM
[2024-07-10] MEDS: SODIUM CHLORIDE 0.9% 1,000 ML IV STA (19:33)
[2024-07-10 19:50] LABS: Basophils % (A) 0 %; Eosinophils # (A) 0.2 k/uL (0-0.7); Eosinophils % (A) 2 %; HGB 16.2 gm/dL (13.0-17.5); Lymphocytes # (A) 3.1 k/uL (1.0-4.8); Lymphocytes % (A) 36 %; MCH 30.7 pg (25.0-35.0); MCHC 33.9 g/dL (31.0-37.0); MCV 90.7 fL (80.0-100.0); Monocytes # (A) 0.4 k/uL (0-1.0); Monocytes % (A) 5 %; Neutrophils # (A) 4.9 k/uL (1.3-7.7); Neutrophils % (A) 56 %; Platelet Count 228 k/uL (150-450); RBC 5.29 m/uL (4.30-5.90); RDW 13.3 % (11.5-15.5); WBC 8.6 k/uL (3.8-10.6)
[2024-07-10 19:56] LABS: Appearance,Urine Clear (Clear); Bilirubin,Urine Negative (Negative); Blood,Urine Negative (Negative); Color,Urine Colorless; Glucose,Urine (UA) Negative (Negative); Ketones,Urine Negative (Negative); Leukocyte Esterase,Urine Negative (Negative); Nitrite,Urine Negative (Negative); Protein,Urine Negative (Negative); Specific Gravity,Urine 1.004 (1.001-1.035); Urobilinogen,Urine <2.0 mg/dL (<2.0)
[2024-07-10 20:09] LABS: ALT 31 U/L (4-49); AST 27 U/L (17-59); African American GFR (CKD) >90 (>60 ml/min/1.73 sqM); Alkaline Phosphatase 83 U/L (38-126); Anion Gap 10 mmol/L; Blood Urea Nitrogen 9 mg/dL (9-20); Carbon Dioxide 27 mmol/L (22-30); Chloride 104 mmol/L (98-107); Glucose 96 mg/dL (74-99); Lipase 23 U/L (23-300); Non-African American GFR(CKD) >90 (>60 ml/min/1.73 sqM); Potassium 3.7 mmol/L (3.5-5.1); Sodium 141 mmol/L (137-145); Total Bilirubin 0.7 mg/dL (0.2-1.3); Total Protein 7.4 g/dL (6.3-8.2)
[2024-07-10] MEDS: NA PHOS,M-B/NA PHOS,DI-BA 133 ML ENEMA RECTAL STA (20:17)
[2024-07-10] MEDS: MORPHINE SULFATE 2 MG/ML SYRINGE IVP ONE (21:48)
[2024-07-10 21:51] VITALS: BP 139/88; PULSE 78; RESP 16
[2024-07-10 21:58] VITALS: TEMP 98
[2024-07-10] MEDS: MAGNESIUM CITRATE 296 ML BOTTLE PO ONE (22:15)
== END 2024-07-10 22:16 | disposition home or self-care (01) ==
LOC: EC 17:38
DX: K59.00 Constipation, unspecified (principal); F17.200 Nicotine dependence, unspecified, uncomplicated; Z88.8 Allergy status to other drugs, medicaments and biological substances; Z11.52 Encounter for screening for COVID-19
CPT/HCPCS: 36415; 80053; 83605; 83690; 85025; 81003; 87636; 74018; 99284; 96372; 96374; 96361; J2270; J1885

== ENCOUNTER 2024-07-11 04:39 | Emergency (ER) | payer OTHER ==
[2024-07-11 04:49] VITALS: RESP 18
[2024-07-11] MEDS: MORPHINE SULFATE 4 MG/ML SYRINGE IM STA (05:25)
[2024-07-11] MEDS: DIPHENOX-ATROP 2.5-0.025 MG 1 EACH TAB PO STA ×2 (05:25→05:52)
--- NOTE | 2024-07-11 05:39 | XR ---
EXAMINATION TYPE: XR KUB DATE OF EXAM: 07/11/2024 5:32 AM CLINICAL HISTORY: Abdominal pain TECHNIQUE: Two Upright KUB images of the abdomen are obtained. COMPARISON: Abdominal x-ray July 10, 2024 FINDINGS: Scattered gas is seen in non-distended small bowel loops. Gas is seen in nondistended colon along the periphery. Colonic loops slightly more prominent with few air-fluid levels on the right no mary. There is no visceromegaly, pneumoperitoneum, or abnormal calcification appreciated. The lung bas es are clear and the osseous structures are intact. IMPRESSION: Overall nonspecific but still favor nonobstructive bowel gas pattern. [facility], , 07/11/2024 5:36 AM
--- NOTE | 2024-07-11 05:41 | ED ---
General Adult HPI - General Chief complaint: Seizure Stated complaint: Seizure Time Seen by Provider: 07/11/24 04:50 Source: patient Mode of arrival: wheelchair Limitations: no limitations - History of Present Illness Initial comments: 34-year-old male with past medical history of schizoaffective disorder, polysubstance abuse, tremor who presents to the emergency department reporting diffuse abdominal pain. Patient was seen earlier today for his abdominal pain which has become a chronic issue. He has been constipated. Laboratory studies, viral swab, urinalysis and an x-ray were performed. He had significant stool burden and therefore he was given magnesium citrate. Patient reports that he went home and drink the bottle of magnesium citrate. This caused him to have diffuse abdominal cramping and now he is having diarrhea every few minutes. He denies black or bloody stools. No vomiting or nausea. He did admit to feeling chills earlier. He denies any additional symptoms to include chest pain, shortness of breath. No other alleviating, precipitating or modifying factors - Related Data Home Medications Medication Instructions Recorded Confirmed ALPRAZolam [Xanax] 1 mg PO QID PRN 10/21/22 03/25/24 Hyoscyamine Sulfate [Hyoscyamine 0.125 mg SL Q4HR PRN 03/22/24 03/25/24 Sulfate SL] Temazepam [Restoril] 15 mg PO HS 03/22/24 03/25/24 Nicotine 14Mg/24Hr Patch [Habitrol 1 patch TRANSDERM DIRECTED 03/25/24 03/25/24 14Mg/24Hr Patch] fluvoxaMINE MALEATE 100 mg PO HS 03/25/24 03/25/24 Previous Rx's Medication Instructions Recorded lamoTRIgine [LaMICtal] 100 mg PO HS 30 Days tab 06/05/22 Nicotine 21Mg/24Hr Patch [Habitrol] 1 patch TRANSDERM DAILY #30 patch 10/23/22 rOPINIRole HCL [Requip] 0.25 mg PO HS #30 tab 10/23/22 Allergies Allergy/AdvReac Type Severity Reaction Status Date / Time aripiprazole [From Abilify] Allergy Unknown Agitation Verified 07/10/24 17:57 cariprazine [From Vraylar] Allergy Unknown Agitation Verified 07/10/24 17:57 citalopram [From Celexa] Allergy Unknown Agitation Verified 07/10/24 17:57 divalproex sodium Allergy Unknown Agitation Verified 07/10/24 17:57 [From Depakote] paroxetine [From Paxil] Allergy Unknown Agitation Verified 07/10/24 17:57 sertraline [From Zoloft] Allergy Unknown Agitation Verified 07/10/24 17:57 phenobarbital AdvReac Severe Rapid Verified 07/10/24 17:57 Heart Rate zolpidem tartrate AdvReac Unknown Altered Verified 07/10/24 17:57 [From Ambien] Mental Status estropipate [From Ogen 2.5] AdvReac Twitching Verified 07/10/24 17:57 of Legs haloperidol [From Haldol] AdvReac Agitation Verified 07/10/24 17:57 methylprednisolone AdvReac Altered Verified 07/10/24 17:57 [From Solu-Medrol] Mental Status Review of Systems ROS Statement: Those systems with pertinent positive or pertinent negative responses have been documented in the HPI. ROS Other: All systems not noted in ROS Statement are negative. 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 PT IS ABLE TO MAKE DECISIONS FOR HISSELF History of Any Multi-Drug Resistant Organisms: None Reported Past Surgical History: No Surgical Hx Reported, Tonsillectomy Additional Past Surgical History / Comment(s): wisdom teeth removed. Past Anesthesia/Blood Transfusion Reactions: No Reported Reaction Additional Past Anesthesia/Blood Transfusion Reaction / Comment(s): NEVER HAD BLOOD TRANSFUSION Past Psychological History: ADD/ADHD, Anxiety, Bipolar, Depression, PTSD Smoking Status: Current every day smoker Past Alcohol Use History: None Reported Past Drug Use History: Marijuana - Past Family History Sister(s) Additional Family Medical History / Comment(s): He has one sister that is healthy. He also has a 4-year-old daughter that is healthy. Father Family Medical History: GERD/Reflux Additional Family Medical History / Comment(s): DAD HAS ALSO NEVER BEEN AN ALCOHOLIC-RARELY, RARELY DRINKS. Mother Family Medical History: Cancer Additional Family Medical History / Comment(s): MOM STATES SHE HAS NEVER BEEN AN ALCOHOLIC-MOM RARELY ,RARELY DRINKS. HX THYROID CANCER General Exam Limitations: no limitations General appearance: alert, in no apparent distress Head exam: Present: atraumatic, normocephalic, normal inspection Eye exam: Present: normal appearance, PERRL, EOMI. Absent: scleral icterus, conjunctival injection, periorbital swelling ENT exam: Present: normal exam, mucous membranes moist Neck exam: Present: normal inspection. Absent: tenderness, meningismus, lymphadenopathy Respiratory exam: Present: normal lung sounds bilaterally. Absent: respiratory distress, wheezes, rales, rhonchi, stridor Cardiovascular Exam: Present: regular rate, normal rhythm, normal heart sounds. Absent: systolic murmur, diastolic murmur, rubs, gallop, clicks GI/Abdominal exam: Present: soft, tenderness (generalized), normal bowel sounds. Absent: distended, guarding, rebound, rigid Extremities exam: Present: normal inspection, full ROM, normal capillary refill. Absent: tenderness, pedal edema, joint swelling, calf tenderness Back exam: Present: normal inspection Neurological exam: Present: alert, oriented X3, CN II-XII intact Psychiatric exam: Present: normal affect, normal mood Skin exam: Present: warm, dry, intact, normal color. Absent: rash Course Vital Signs 07/11/24 04:46 Temperature 98.4 F Pulse Rate 84 Respiratory 18 Rate Blood Pressure 136/94 O2 Sat by Pulse 99 Oximetry Medical Decision Making - Medical Decision Making Was pt. sent in by a medical professional or institution (LINO Patel, DETACKER, urgent care, hospital, or fdc...) When possible be specific @ -No Did you speak to anyone other than the patient for history (EMS, parent, family, police, friend...)? What history was obtained from this source @ -No Did you review nursing and triage notes (agree or disagree)? Why? @ -I reviewed and agree with nursing and triage notes Were old charts reviewed (outside hosp., previous admission, EMS record, old EKG, old radiological studies, urgent care reports/EKG's, fdc records)? Report findings @ -I reviewed the ED note from earlier today Differential Diagnosis (chest pain, altered mental status, abdominal pain women, abdominal pain men, vaginal bleeding, weakness, fever, dyspnea, syncope, headache, dizziness, GI bleed, back pain, seizure, CVA, palpatations, mental health, musculoskeletal)? @ -Differential Abdominal Pain Men: Appendicitis, cholecystitis, diverticulosis, ischemic bowel, pancreatitis, hepatitis, UTI, gastroenteritis, AAA, incarcerated hernia, bowel obstruction, constipation, inflammatory bowel, hepatitis, peptic ulcer disease, splenic infarction, perforated viscus, testicular torsion, this is not meant to be an all-inclusive list EKG interpreted by me (3pts min.). @ -Not done X-rays interpreted by me (1pt min.). @ -Yes and demonstrates no free air CT interpreted by me (1pt min.). @ -None done U/S interpreted by me (1pt. min.). @ -None done What testing was considered but not performed or refused? (CT, X-rays, U/S, labs)? Why? @ -None What meds were considered but not given or refused? Why? @ -None Did you discuss the management of the patient with other professionals (professionals i.e. , PA, DETACKER, lab, RT, psych nurse, social science teacher, police chief deputy, teacher, correctional officer, geriatric case manager)? Give summary @ -No Was smoking cessation discussed for >3mins.? @ -No Was critical care preformed (if so, how long)? @ -No Were there social determinants of health that impacted care today? How? (Homelessness, low income, unemployed, alcoholism, drug addiction, transportation, low edu. Level, literacy, decrease access to med. care, halfway, rehab)? @ -No Was there de-escalation of care discussed even if they declined (Discuss DNR or withdrawal of care, Hospice)? DNR status @ -No What co-morbidities impacted this encounter? (DM, HTN, Smoking, COPD, CAD, Cancer, CVA, ARF, Chemo, Hep., AIDS, mental health diagnosis, sleep apnea, morbid obesity)? @ -Schizoaffective Was patient admitted / discharged? Hospital course, mention meds given and rout e, prescriptions, significant lab abnormalities, going to OR and other pertinent info. @ -Upon arrival patient seen and evaluated in room 14. Thorough history and physical exam was performed. Patient is requesting morphine. He is given 4 mg IM. I also give the patient a Lomotil. KUB was performed. Patient is reevaluated. Continues to have diarrhea and therefore he is given a second Lomotil and 1 mg of Dilaudid. IV was established. Laboratory studies are conducted. Patient does have relief in his diarrhea and abdominal pain. KUB demonstrates no obstruction. Patient be discharged home at this time. Instructed follow-up with his GI doctor. Do not use any mag citrate. Return for any new or worsening symptoms Undiagnosed new problem with uncertain prognosis? @ -No Drug Therapy requiring intensive monitoring for toxicity (Heparin, Nitro, Insulin, Cardizem)? @ -No Were any procedures done? @ -No Diagnosis/symptom? @ -Acute abdominal pain, acute diarrhea Acute, or Chronic, or Acute on Chronic? @ -Acute Uncomplicated (without systemic symptoms) or Complicated (systemic symptoms)? @ -Complicated Side effects of treatment? @ -Constipation Exacerbation, Progression, or Severe Exacerbation? @ -No Poses a threat to life or bodily function? How? (Chest pain, USA, ND, pneumonia, PE, COPD, DKA, ARF, appy, cholecystitis, CVA, Diverticulitis, Homicidal, Suicidal, threat to staff... and all critical care pts) @ -No - Lab Data Result diagrams: 07/11/24 06:03 07/11/24 06:03 Lab Results 07/11/24 07/11/24 Range/Units 06:03 06:03 WBC 6.1 (3.8-10.6) k/uL RBC 5.45 (4.30-5.90) m/uL Hgb 16.8 (13.0-17.5) gm/dL Hct 50.5 (39.0-53.0) % MCV 92.8 (80.0-100.0) fL MCH 30.8 (25.0-35.0) pg MCHC 33.2 (31.0-37.0) g/dL RDW 12.9 (11.5-15.5) % Plt Count 207 (150-450) k/uL MPV 7.7 Neutrophils % 52 % Lymphocytes % 38 % Monocytes % 6 % Eosinophils % 2 % Basophils % 1 % Neutrophils # 3.2 (1.3-7.7) k/uL Lymphocytes # 2.3 (1.0-4.8) k/uL Monocytes # 0.4 (0-1.0) k/uL Eosinophils # 0.1 (0-0.7) k/uL Basophils # 0.0 (0-0.2) k/uL Sodium 143 (137-145) mmol/L Potassium 3.8 (3.5-5.1) mmol/L Chloride 106 (98-107) mmol/L Carbon Dioxide 27 (22-30) mmol/L Anion Gap 10 mmol/L BUN 9 (9-20) mg/dL Creatinine 0.76 (0.66-1.25) mg/dL Est GFR (CKD-EPI)AfAm >90 (>60 ml/min/1.73 sqM) Est GFR (CKD-EPI)NonAf >90 (>60 ml/min/1.73 sqM) Glucose 83 (74-99) mg/dL Calcium 9.8 (8.4-10.2) mg/dL Total Bilirubin 0.6 (0.2-1.3) mg/dL AST 36 (17-59) U/L ALT 34 (4-49) U/L Alkaline Phosphatase 82 (38-126) U/L Total Protein 7.2 (6.3-8.2) g/dL Albumin 5.1 H (3.5-5.0) g/dL Disposition Clinical Impression: Acute diarrhea Disposition: HOME SELF-CARE Condition: Stable Instructions (If sedation given, give patient instructions): Acute Diarrhea (ED) Additional Instructions: Please follow-up with Dr. Monson in regards to your chronic abdominal pain. Return for any new or worsening symptoms Is patient prescribed a controlled substance at d/c from ED?: No Referrals: Sumeet Mejias III, MD [Primary Care Provider] - 1-2 days Melissa Mendoza MD [STAFF PHYSICIAN] - 1-2 days Time of Disposition: 06:58
[2024-07-11] MEDS: LORazepam 2 MG/ML INJ IV STA (06:10)
[2024-07-11] MEDS: SODIUM CHLORIDE 0.9% 1,000 ML IV ONE (06:10)
[2024-07-11] MEDS: HYDROmorphone 1 MG/ML 1 ML SYRINGE IVP STA (06:11)
[2024-07-11 06:12] LABS: Basophils % (A) 1 %; Eosinophils # (A) 0.1 k/uL (0-0.7); Eosinophils % (A) 2 %; HCT 50.5 % (39.0-53.0); HGB 16.8 gm/dL (13.0-17.5); Lymphocytes # (A) 2.3 k/uL (1.0-4.8); Lymphocytes % (A) 38 %; MCH 30.8 pg (25.0-35.0); MCHC 33.2 g/dL (31.0-37.0); MCV 92.8 fL (80.0-100.0); Mean Platelet Volume 7.7; Monocytes # (A) 0.4 k/uL (0-1.0); Monocytes % (A) 6 %; Neutrophils # (A) 3.2 k/uL (1.3-7.7); Neutrophils % (A) 52 %; Platelet Count 207 k/uL (150-450); RBC 5.45 m/uL (4.30-5.90); RDW 12.9 % (11.5-15.5); WBC 6.1 k/uL (3.8-10.6)
[2024-07-11 06:26] LABS: ALT 34 U/L (4-49); AST 36 U/L (17-59); African American GFR (CKD) >90 (>60 ml/min/1.73 sqM); Albumin 5.1 g/dL (3.5-5.0); Alkaline Phosphatase 82 U/L (38-126); Anion Gap 10 mmol/L; Blood Urea Nitrogen 9 mg/dL (9-20); Calcium 9.8 mg/dL (8.4-10.2); Carbon Dioxide 27 mmol/L (22-30); Chloride 106 mmol/L (98-107); Glucose 83 mg/dL (74-99); Non-African American GFR(CKD) >90 (>60 ml/min/1.73 sqM); Potassium 3.8 mmol/L (3.5-5.1); Sodium 143 mmol/L (137-145); Total Bilirubin 0.6 mg/dL (0.2-1.3); Total Protein 7.2 g/dL (6.3-8.2)
[2024-07-11 07:19] VITALS: BP 118/75; PULSE 68; TEMP 97.8
== END 2024-07-11 07:19 | disposition home or self-care (01) ==
LOC: EC 04:39
DX: R19.7 Diarrhea, unspecified (principal); R10.9 Unspecified abdominal pain; F17.200 Nicotine dependence, unspecified, uncomplicated; Z88.8 Allergy status to other drugs, medicaments and biological substances; Z91.048 Other nonmedicinal substance allergy status
CPT/HCPCS: 36415; 80053; 85025; 74018; 99284; 96374; 96375; 96372; 96361; J2060; J2270; J1171

== ENCOUNTER 2024-07-18 15:37 | Emergency (ER) | payer OTHER ==
[2024-07-18 15:47] VITALS: RESP 20; TEMP 98.3
--- NOTE | 2024-07-18 15:54 | ED ---
Psych HPI - General Chief Complaint: Psychiatric Symptoms Stated Complaint: mental health Time Seen by Provider: 07/18/24 15:49 Source: patient, RN notes reviewed, old records reviewed Mode of arrival: ambulatory Limitations: no limitations - History of Present Illness Initial Comments: This is a 34-year-old male to the ER for evaluation today. Patient presents today for evaluation regards to abdominal pain abdominal pain with underlying psychiatric illness and psychiatric history MD Complaint: suicidal ideation, feels depressed -: days(s) Associated Psychiatric Symptoms: depression, suicidal ideation History of same: Yes Quality: constant Improves With: none Worsens With: none Associated Symptoms: denies other symptoms Treatments Prior to Arrival: placed on mental health hold If Self Harm: admits thoughts of self harm - Related Data Home Medications Medication Instructions Recorded Confirmed Temazepam [Restoril] 15 mg PO HS 03/22/24 07/18/24 fluvoxaMINE MALEATE 50 mg PO BID 03/25/24 07/18/24 LORazepam [Ativan] 1 mg PO Q8H PRN 07/18/24 07/18/24 Nicotine 21Mg/24Hr Patch [Habitrol] 1 patch TRANSDERM HS 07/18/24 07/18/24 Omeprazole [PriLOSEC] 20 mg PO AC-BRKFST 07/18/24 07/18/24 lamoTRIgine [LaMICtal] 100 mg PO DAILY 07/18/24 07/18/24 Previous Rx's Medication Instructions Recorded ALPRAZolam [Xanax] 0.5 mg PO TID PRN #9 tablet 07/18/24 Allergies Allergy/AdvReac Type Severity Reaction Status Date / Time aripiprazole [From Abilify] Allergy Unknown Agitation Verified 07/18/24 19:30 cariprazine [From Vraylar] Allergy Unknown Agitation Verified 07/18/24 19:30 citalopram [From Celexa] Allergy Unknown Agitation Verified 07/18/24 19:30 divalproex sodium Allergy Unknown Agitation Verified 07/18/24 19:30 [From Depakote] paroxetine [From Paxil] Allergy Unknown Agitation Verified 07/18/24 19:30 sertraline [From Zoloft] Allergy Unknown Agitation Verified 07/18/24 19:30 phenobarbital AdvReac Severe Rapid Verified 07/18/24 19:30 Heart Rate zolpidem tartrate AdvReac Unknown Altered Verified 07/18/24 19:30 [From Ambien] Mental Status estropipate [From Ogen 2.5] AdvReac Twitching Verified 07/18/24 19:30 of Legs haloperidol [From Haldol] AdvReac Agitation Verified 07/18/24 19:30 lorazepam [From Ativan] AdvReac Hallucinati Verified 07/18/24 19:48 ons methylprednisolone AdvReac Altered Verified 07/18/24 19:30 [From Solu-Medrol] Mental Status Review of Systems ROS Statement: Those systems with pertinent positive or pertinent negative responses have been documented in the HPI. ROS Other: All systems not noted in ROS Statement are negative. 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 PT IS ABLE TO MAKE DECISIONS FOR HISSELF History of Any Multi-Drug Resistant Organisms: None Reported Past Surgical History: No Surgical Hx Reported, Tonsillectomy Additional Past Surgical History / Comment(s): wisdom teeth removed. Past Anesthesia/Blood Transfusion Reactions: No Reported Reaction Additional Past Anesthesia/Blood Transfusion Reaction / Comment(s): NEVER HAD BLOOD TRANSFUSION Past Psychological History: ADD/ADHD, Anxiety, Bipolar, Depression, PTSD Smoking Status: Current every day smoker Past Alcohol Use History: None Reported Past Drug Use History: Marijuana - Past Family History Sister(s) Additional Family Medical History / Comment(s): He has one sister that is healthy. He also has a 4-year-old daughter that is healthy. Father Family Medical History: GERD/Reflux Additional Family Medical History / Comment(s): DAD HAS ALSO NEVER BEEN AN A LCOHOLIC-RARELY, RARELY DRINKS. Mother Family Medical History: Cancer Additional Family Medical History / Comment(s): MOM STATES SHE HAS NEVER BEEN AN ALCOHOLIC-MOM RARELY ,RARELY DRINKS. HX THYROID CANCER General Exam Limitations: no limitations General appearance: alert, in no apparent distress Head exam: Present: atraumatic, normocephalic, normal inspection Eye exam: Present: normal appearance, PERRL, EOMI. Absent: scleral icterus, conjunctival injection, periorbital swelling ENT exam: Present: normal exam, mucous membranes moist Neck exam: Present: normal inspection. Absent: tenderness, meningismus, lymphadenopathy Respiratory exam: Present: normal lung sounds bilaterally. Absent: respiratory distress, wheezes, rales, rhonchi, stridor Cardiovascular Exam: Present: regular rate, normal rhythm, normal heart sounds. Absent: systolic murmur, diastolic murmur, rubs, gallop, clicks GI/Abdominal exam: Present: soft, normal bowel sounds. Absent: distended, tenderness, guarding, rebound, rigid Extremities exam: Present: normal inspection, full ROM, normal capillary refill. Absent: tenderness, pedal edema, joint swelling, calf tenderness Back exam: Present: normal inspection Neurological exam: Present: alert, oriented X3, CN II-XII intact Psychiatric exam: Present: normal affect, normal mood Skin exam: Present: warm, dry, intact, normal color. Absent: rash Course Vital Signs 07/18/24 15:45 Temperature 98.3 F Pulse Rate 91 Respiratory 20 Rate Blood Pressure 126/83 O2 Sat by Pulse 98 Oximetry - Reevaluation(s) Reevaluation #1: 07/18/24 19:12 Medical records reviewed Reevaluation #2: 07/18/24 19:12 Medically cleared for psychiatric evaluation Reevaluation #3: Differential Mental Health Depression, anxiety, bipolar, psychosis, schizophrenia, borderline personality, situational depression, adjustment disorder, behavioral disorder, brain tumor, malingering, substance abuse, encephalopathy, medication reaction, dementia, hypothyroidism, degenerative neurologic disorder, lupus.... This is not meant to be all-inclusive list Differential Abdominal Pain Men: Appendicitis, cholecystitis, diverticulosis, ischemic bowel, pancreatitis, hepatitis, UTI, gastroenteritis, AAA, incarcerated hernia, bowel obstruction, constipation, inflammatory bowel, hepatitis, peptic ulcer disease, splenic infa rction, perforated viscus, testicular torsion, this is not meant to be an all- inclusive list Medical Decision Making - Medical Decision Making 34 male to the ER for evaluation abdominal pain, abdominal pain with nausea no vomiting with no acute findings. Patient has improved anxiety here in the ER and can be discharged home, patient seen evaluate mental health - Lab Data Result diagrams: 07/18/24 16:28 07/18/24 17:26 Lab Results 07/18/24 07/18/24 Range/Units 16:28 17:26 WBC 6.1 (3.8-10.6) k/uL RBC 5.62 (4.30-5.90) m/uL Hgb 17.7 H (13.0-17.5) gm/dL Hct 51.5 (39.0-53.0) % MCV 91.7 (80.0-100.0) fL MCH 31.4 (25.0-35.0) pg MCHC 34.3 (31.0-37.0) g/dL RDW 13.1 (11.5-15.5) % Plt Count 211 (150-450) k/uL MPV 8.3 Neutrophils % 53 % Lymphocytes % 39 % Monocytes % 5 % Eosinophils % 2 % Basophils % 0 % Neutrophils # 3.2 (1.3-7.7) k/uL Lymphocytes # 2.4 (1.0-4.8) k/uL Monocytes # 0.3 (0-1.0) k/uL Eosinophils # 0.1 (0-0.7) k/uL Basophils # 0.0 (0-0.2) k/uL Sodium 142 (137-145) mmol/L Potassium 4.0 (3.5-5.1) mmol/L Chloride 112 H (98-107) mmol/L Carbon Dioxide 21 L (22-30) mmol/L Anion Gap 9 mmol/L BUN 16 (9-20) mg/dL Creatinine 0.87 (0.66-1.25) mg/dL Est GFR (CKD-EPI)AfAm >90 (>60 ml/min/1.73 sqM) Est GFR (CKD-EPI)NonAf >90 (>60 ml/min/1.73 sqM) Glucose 74 (74-99) mg/dL Calcium 9.7 (8.4-10.2) mg/dL Magnesium 1.9 (1.6-2.3) mg/dL Total Bilirubin 1.5 H (0.2-1.3) mg/dL AST 27 (17-59) U/L ALT 24 (4-49) U/L Alkaline Phosphatase 95 (38-126) U/L Total Protein 7.4 (6.3-8.2) g/dL Albumin 5.0 (3.5-5.0) g/dL Amylase 37 (30-110) U/L Lipase 29 (23-300) U/L - Radiology Data Radiology results: report reviewed (X-ray KUB negative for acute disease), image reviewed Disposition Clinical Impression: Weakness, Abdominal pain, Acute anxiety, Psychosis Disposition: HOME SELF-CARE Condition: Fair Instructions (If sedation given, give patient instructions): Abdominal Pain (ED) Prescriptions: ALPRAZolam [Xanax] 0.5 mg PO TID PRN #9 tablet PRN Reason: Anxiety Is patient prescribed a controlled substance at d/c from ED?: No Referrals: Sumeet Mejias III, MD [Primary Care Provider] - 1-2 days
[2024-07-18] MEDS: KETOROLAC 15 MG/ML 1 ML VIAL IVP STA (16:34)
[2024-07-18] MEDS: SODIUM CHLORIDE 0.9% 1,000 ML IV STA (16:34)
[2024-07-18 16:42] LABS: Basophils % (A) 0 %; Eosinophils # (A) 0.1 k/uL (0-0.7); Eosinophils % (A) 2 %; HCT 51.5 % (39.0-53.0); HGB 17.7 gm/dL (13.0-17.5); Lymphocytes # (A) 2.4 k/uL (1.0-4.8); Lymphocytes % (A) 39 %; MCH 31.4 pg (25.0-35.0); MCHC 34.3 g/dL (31.0-37.0); MCV 91.7 fL (80.0-100.0); Mean Platelet Volume 8.3; Monocytes # (A) 0.3 k/uL (0-1.0); Monocytes % (A) 5 %; Neutrophils # (A) 3.2 k/uL (1.3-7.7); Neutrophils % (A) 53 %; Platelet Count 211 k/uL (150-450); RBC 5.62 m/uL (4.30-5.90); RDW 13.1 % (11.5-15.5); WBC 6.1 k/uL (3.8-10.6)
--- NOTE | 2024-07-18 16:57 | XR ---
EXAMINATION TYPE: XR KUB DATE OF EXAM: 07/18/2024 4:53 PM COMPARISON: 07/11/2024 CLINICAL INDICATION: Male, 34 years old with history of abdominal pain; [facility] TECHNIQUE: One radiographic view of the abdomen was obtained. FINDINGS: The bowel gas pattern is nonspecific without dilated loops of small or large bowel. . Fecal material and gas are demonstrated throughout the colon and rectum. There is no evidence for organomegaly or pneumoperitoneum. The osseous structures are intact. No ab normal calcifications are present. IMPRESSION: Nonspecific bowel gas pattern without radiographic evidence for acute process. [facility], , 07/18/2024 4:55 PM
[2024-07-18] MEDS: MORPHINE SULFATE 4 MG/ML SYRINGE IVP STA (16:59)
[2024-07-18] MEDS: LORazepam 2 MG/ML INJ IV STA ×2 (17:29→19:46)
[2024-07-18 18:48] LABS: ALT 24 U/L (4-49); AST 27 U/L (17-59); African American GFR (CKD) >90 (>60 ml/min/1.73 sqM); Alkaline Phosphatase 95 U/L (38-126); Amylase 37 U/L (30-110); Anion Gap 9 mmol/L; Blood Urea Nitrogen 16 mg/dL (9-20); Calcium 9.7 mg/dL (8.4-10.2); Carbon Dioxide 21 mmol/L (22-30); Chloride 112 mmol/L (98-107); Glucose 74 mg/dL (74-99); Lipase 29 U/L (23-300); Magnesium 1.9 mg/dL (1.6-2.3); Non-African American GFR(CKD) >90 (>60 ml/min/1.73 sqM); Sodium 142 mmol/L (137-145); Total Bilirubin 1.5 mg/dL (0.2-1.3); Total Protein 7.4 g/dL (6.3-8.2)
[2024-07-18] MEDS: diphenhydrAMINE 50 MG/ML 1 ML VIAL IVP STA (19:46)
[2024-07-18] MEDS: ALPRAZolam 1 MG TAB PO PRN (19:55)
[2024-07-18 20:03] VITALS: BP 108/69; PULSE 84
== END 2024-07-18 20:04 | disposition home or self-care (01) ==
LOC: EC 15:37
DX: R53.1 Weakness (principal); R10.9 Unspecified abdominal pain; F41.9 Anxiety disorder, unspecified; F29 Unspecified psychosis not due to a substance or known physiological condition; F17.200 Nicotine dependence, unspecified, uncomplicated; Z88.8 Allergy status to other drugs, medicaments and biological substances
CPT/HCPCS: 82075; 36415; 80053; 82150; 83690; 83735; 85025; 74018; 99285; 96374; 96375; 96361; J2060; J2270

== ENCOUNTER 2024-07-18 22:11 | Inpatient (IN) | payer MEDICAID, OTHER ==
--- NOTE | 2024-07-18 23:00 | ED ---
Psych HPI - General Chief Complaint: Psychiatric Symptoms Stated Complaint: Suicidal Time Seen by Provider: 07/18/24 22:17 Source: patient, RN notes reviewed Mode of arrival: ambulatory Limitations: no limitations - History of Present Illness Initial Comments: 34-year-old male presents emergency department for psychiatric evaluation. Patient was just discharged from the Emergency Department after evaluation he states symptoms worsened he states that he is having worsening voices he states that he is depressed and has suicidal ideation. Patient denies any self-harm. - Related Data Home Medications Medication Instructions Recorded Confirmed Temazepam [Restoril] 15 mg PO HS 03/22/24 07/18/24 fluvoxaMINE MALEATE 50 mg PO BID 03/25/24 07/18/24 LORazepam [Ativan] 1 mg PO Q8H PRN 07/18/24 07/18/24 Nicotine 21Mg/24Hr Patch [Habitrol] 1 patch TRANSDERM HS 07/18/24 07/18/24 Omeprazole [PriLOSEC] 20 mg PO AC-BRKFST 07/18/24 07/18/24 lamoTRIgine [LaMICtal] 100 mg PO DAILY 07/18/24 07/18/24 Previous Rx's Medication Instructions Recorded ALPRAZolam [Xanax] 0.5 mg PO TID PRN #9 tablet 07/18/24 Allergies Allergy/AdvReac Type Severity Reaction Status Date / Time aripiprazole [From Abilify] Allergy Unknown Agitation Verified 07/18/24 22:22 cariprazine [From Vraylar] Allergy Unknown Agitation Verified 07/18/24 22:22 citalopram [From Celexa] Allergy Unknown Agitation Verified 07/18/24 22:22 divalproex sodium Allergy Unknown Agitation Verified 07/18/24 22:22 [From Depakote] paroxetine [From Paxil] Allergy Unknown Agitation Verified 07/18/24 22:22 sertraline [From Zoloft] Allergy Unknown Agitation Verified 07/18/24 22:22 phenobarbital AdvReac Severe Rapid Verified 07/18/24 22:22 Heart Rate zolpidem tartrate AdvReac Unknown Altered Verified 07/18/24 22:22 [From Ambien] Mental Status estropipate [From Ogen 2.5] AdvReac Twitching Verified 07/18/24 22:22 of Legs haloperidol [From Haldol] AdvReac Agitation Verified 07/18/24 22:22 lorazepam [From Ativan] AdvReac Hallucinati Verified 07/18/24 22:22 ons methylprednisolone AdvReac Altered Verified 07/18/24 22:22 [From Solu-Medrol] Mental Status Review of Systems ROS Statement: Those systems with pertinent positive or pertinent negative responses have been documented in the HPI. ROS Other: All systems not noted in ROS Statement are negative. 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 PT IS ABLE TO MAKE DECISIONS FOR HISSELF History of Any Multi-Drug Resistant Organisms: None Reported Past Surgical History: No Surgical Hx Reported, Tonsillectomy Additional Past Surgical History / Comment(s): wisdom teeth removed. Past Anesthesia/Blood Transfusion Reactions: No Reported Reaction Additional Past Anesthesia/Blood Transfusion Reaction / Comment(s): NEVER HAD BLOOD TRANSFUSION Past Psychological History: ADD/ADHD, Anxiety, Bipolar, Depression, PTSD Smoking Status: Current every day smoker Past Alcohol Use History: None Reported Past Drug Use History: Marijuana - Past Family History Sister(s) Additional Family Medical History / Comment(s): He has one sister that is healthy. He also has a 4-year-old daughter that is healthy. Father Family Medical History: GERD/Reflux Additional Family Medical History / Comment(s): DAD HAS ALSO NEVER BEEN AN ALCOHOLIC-RARELY, RARELY DRINKS. Mother Family Medical History: Cancer Additional Family Medical History / Comment(s): MOM STATES SHE HAS NEVER BEEN AN ALCOHOLIC-MOM RARELY ,RARELY DRINKS. HX THYROID CANCER General Exam Limitations: no limitations General appearance: alert, in no apparent distress Head exam: Present: atraumatic, normocephalic, normal inspection Eye exam: Present: normal appearance, PERRL, EOMI. Absent: scleral icterus, conjunctival injection, periorbital swelling ENT exam: Present: normal exam, normal oropharynx, mucous membranes moist Neck exam: Present: normal inspection, full ROM. Absent: tenderness, meningismus, lymphadenopathy Respiratory exam: Present: normal lung sounds bilaterally. Absent: respiratory distress, wheezes, rales, rhonchi, stridor Cardiovascular Exam: Present: regular rate, normal rhythm, normal heart sounds. Absent: systolic murmur, diastolic murmur, rubs, gallop, clicks GI/Abdominal exam: Present: soft, normal bowel sounds. Absent: distended, tenderness, guarding, rebound, rigid Course Vital Signs 07/18/24 22:20 Temperature 98.6 F Pulse Rate 94 Respiratory 18 Rate Blood Pressure 109/72 O2 Sat by Pulse 97 Oximetry Medical Decision Making - Medical Decision Making Was pt. sent in by a medical professional or institution (, PA, DISTRICT MANAGER [employer], urgent care, hospital, or [facility]...) When possible be specific @ -No Did you speak to anyone other than the patient for history (EMS, parent, family, police, friend...)? What history was obtained from this source @ -No Did you review nursing and triage notes (agree or disagree)? Why? @ -I reviewed and agree with nursing and triage notes Were old charts reviewed (outside hosp., previous admission, EMS record, old EKG, old radiological studies, urgent care reports/EKG's, [facility] records)? Report findings @ -No old charts were reviewed Differential Diagnosis (chest pain, altered mental status, abdominal pain women, abdominal pain men, vaginal bleeding, weakness, fever, dyspnea, syncope, headache, dizziness, GI bleed, back pain, seizure, CVA, palpatations, mental health, musculoskeletal)? @ -Differential Mental Health Depression, anxiety, bipolar, psychosis, schizophrenia, borderline personality, situational depression, adjustment disorder, behavioral disorder, brain tumor, malingering, substance abuse, encephalopathy, medication reaction, dementia, hypothyroidism, degenerative neurologic disorder, lupus.... This is not meant to be all-inclusive list EKG interpreted by me (3pts min.). @ -None X-rays interpreted by me (1pt min.). @ -None done CT interpreted by me (1pt min.). @ -None done U/S interpreted by me (1pt. min.). @ -None done What testing was considered but not performed or refused? (CT, X-rays, U/S, labs)? Why? @ -None What meds were considered but not given or refused? Why? @ -None Did you discuss the management of the patient with other professionals (professionals i.e. , PA, DISTRICT MANAGER [employer] SAL[employer], lab, RT, psych nurse, social science instructor, window clerk, teacher, special assets officer, top case assembler)? Give summary @ -EPS evaluated the patient discussed case with psychiatrist recommends inpatient treatment Was smoking cessation discussed for >3mins.? @ -No Was critical care preformed (if so, how long)? @ -No Were there social determinants of health that impacted care today? How? (Homelessness, low income, unemployed, alcoholism, drug addiction, transportation, low edu. Level, literacy, decrease access to med. care, penitentiary, rehab)? @ -No Was there de-escalation of care discussed even if they declined (Discuss DNR or withdrawal of care, Hospice)? DNR status @ -No What co-morbidities impacted this encounter? (DM, HTN, Smoking, COPD, CAD, Cancer, CVA, ARF, Chemo, Hep., AIDS, mental health diagnosis, sleep apnea, morbid obesity)? @ -None Was patient admitted / discharged? Hospital course, mention meds given and route, prescriptions, significant lab abnormalities, going to OR and other pertinent info. @ -Admitted to 3 W. Undiagnosed new problem with uncertain prognosis? @ -No Drug Therapy requiring intensive monitoring for toxicity (Heparin, Nitro, Insulin, Cardizem)? @ -No Were any procedures done? @ -No Diagnosis/symptom? @ -Psychosis, depression Acute, or Chronic, or Acute on Chronic? @ -Acute Uncomplicated (without systemic symptoms) or Complicated (systemic symptoms)? @ -Complicated Side effects of treatment? @ -No Exacerbation, Progression, or Severe Exacerbation? @ -No Poses a threat to life or bodily function? How? (Chest pain, [place], [place], pneumonia, PE, COPD, DKA, ARF, appy, cholecystitis, CVA, Diverticulitis, Homicidal, Suicidal, threat to staff... and all critical care pts) @ -Yes suicide ideation - Lab Data Lab Results 07/18/24 Range/Units 23:20 SARS-CoV-2 (PCR) Not Detected (Not Detectd) Disposition Clinical Impression: Acute psychosis, Depression Disposition: TRANSFER TO PSYCH HOSP/UNIT Time of Disposition: 22:59
[2024-07-19] MEDS ORDERED: ACETAMINOPHEN TAB 325 MG TAB PO PRN (00:41)
[2024-07-19] MEDS ORDERED: MAG HYDROX/AL HYDROX/SIMETH 355 ML BOTTLE PO PRN (00:41)
[2024-07-19] MEDS ORDERED: IBUPROFEN 600 MG TAB PO PRN (00:41)
[2024-07-19] MEDS ORDERED: OLANZapine 10 MG VIAL IM PRN (00:41)
[2024-07-19] MEDS ORDERED: MAGNESIUM HYDROXIDE 2,400 MG/30 ML CUP PO PRN (00:41)
[2024-07-19] MEDS ORDERED: OLANZapine 5 MG TAB PO PRN (00:41)
[2024-07-19] MEDS: ALPRAZolam 0.5 MG TAB PO PRN (01:58)
[2024-07-19] MEDS: lamoTRIgine 100 MG TAB PO SCH (08:13)
[2024-07-19] MEDS: NICOTINE 14MG/24HR PATCH TRANSDERM SCH (08:13)
[2024-07-19] MEDS: PANTOPRAZOLE 40 MG TABLET PO SCH (08:13)
--- NOTE | 2024-07-19 11:55 | P.HP ---
Psychiatric H&P - . H&P Date: 07/19/24 History & Physical: Allergies Allergy/AdvReac Type Severity Reaction Status Date / Time aripiprazole from Abilify Allergy Unknown Agitation Verified 07/19/24 00:50 cariprazine from Vraylar Allergy Unknown Agitation Verified 07/19/24 00:50 citalopram from Celexa Allergy Unknown Agitation Verified 07/19/24 00:50 divalproex sodium Allergy Unknown Agitation Verified 07/19/24 00:50 From Depakote paroxetine from Paxil Allergy Unknown Agitation Verified 07/19/24 00:50 sertraline from Zoloft Allergy Unknown Agitation Verified 07/19/24 00:50 phenobarbital AdvReac Severe Rapid Verified 07/19/24 00:50 Heart Rate zolpidem tartrate AdvReac Unknown Altered Verified 07/19/24 00:50 From Ambien Mental Status estropipate from Ogen 2.5 AdvReac Twitching Verified 07/19/24 00:50 of Legs haloperidol from Haldol AdvReac Agitation Verified 07/19/24 00:50 lorazepam from Ativan AdvReac Hallucinati Verified 07/19/24 00:50 ons methylprednisolone AdvReac Altered Verified 07/19/24 00:50 From Solu-Medrol Mental Status Vital Signs Temp 97.1 F L 07/19/24 06:31 Pulse 89 07/19/24 08:15 Resp 16 07/19/24 08:15 BP 105/69 07/19/24 08:15 Pulse Ox 97 07/19/24 06:31 FiO2 Intake & Output 07/18/24 07/19/24 07/19/24 18:59 06:59 18:59 Weight 79.067 kg Laboratory Last Values SARS-CoV-2 (PCR) Not Detected (Not Detectd) 07/18/24 23:20 07/19/24 10:03 IDENTIFYING DATA: Patient is a 34-year-old male, on disability, living alone CHIEF COMPLAINT: Suicidal thoughts, auditory hallucinations HPI: Patient presented to the hospital. Per ED note, "34-year-old male presents emergency department for psychiatric evaluation. Patient was just discharged from the Emergency Department after evaluation he states symptoms worsened he states that he is having worsening voices he states that he is depressed and has suicidal ideation. Patient denies any self-harm." Patient seen and evaluated on the unit and was agreeable to speak to commercial real estate underwriter in office. States having a severe allergic reaction to Ativan which was a newer med added by his PCP in place of Xanax for anxiety. He mentions taking Ativan and began self harming himself and was reporting auditory hallucinations that has since subsided. He states his PCP was trying to wean him off Xanax given patient's withdrawal symptoms however he was not able to tolerate this. Patient states he was diagnosed with IBS back in January and that he has been having difficulty with loose stools since then. He reports belly pain however does report eating okay with no loose stools thus far today. He states his primary care doctor prescribes all of his medications however he is interested in following up with a psychiatrist. He feels like overall his medications are working well and he is not agreeable to any adjustments at this time. Patient denied any sleep difficulties, mood changes, appetite changes, anhedonia but does report low energy related to his IBS. He reports issues with cleanliness and intrusive thoughts. Reports being off Restoril for few months with no issues with sleep. Patient denies any suicidal or homicidal ideations intent or plan. At this time patient denies any auditory or visual hallucinations. Patient denies any flight of ideas racing thoughts and increased in goal directed behavior. Patient admits to using no substances as he has quit tobacco. PAST PSYCHIATRIC HISTORY: Patient has a history of OCD, ADHD, anxiety, PTSD. Patient is currently prescribed Luvox 50 mg twice daily, Xanax 0.5 mg 3 times daily, Lamictal 100 mg. Patient has allergies to several psychotropic medications including Abilify, Vraylar, Celexa, Depakote, Paxil, Zoloft. Patient was last seen here back in 2021. Patient denies any psychiatric outpa tient follow-up, his PCP prescribes his medications. Patient denies any history of suicide attempts in the past. PMH: as per ER note ALLERGIES: as per EMR SUBSTANCE USE HISTORY: Patient has a history of cannabis use disorder however he denies any current use, UDS ordered but not completed. He denies any current substance use FAMILY PSYCHIATRIC/SUBSTANCE USE HISTORY: Patient reports mom and her side of the family have depression SOCIAL HISTORY: Patient currently lives alone, is single and has one 12-year-old daughter. He completed schooling up to the 10th grade and is currently on disab ility MENTAL STATUS EXAM: General Appearance: Patient appears to be stated age is alert, directable, and attempts to cooperate. Patient appears to have poor hygiene and grooming. Behavior: Patient is seated without any agitated behavior. Speech: Patient's speech is fluent and nonpressured. Mood/Affect: Patient reports their mood is "okay", affect is congruent and constricted. Suicidality/Homicidality: Patient denies having any homicidal ideation intent or plan. Denies any suicidal ideations intent or plan Perceptions: Patient denies any visual hallucinations and denies any auditory hallucinations Though content/process: There is no evidence of any delusional thought content and thought process is linear and logical. Memory and concentration: AOX3, grossly intact for the purposes of this session. Can spell "WORLD" backwards Judgment and insight: Fair STRENGTHS/WEAKNESSES: strength is that patient is resilient. Weakness is that patient has poor judgment and is impulsive INTELLECT: Below average IMPRESSIONS: Psychosis, unspecified OCD History of PTSD Developmental delay Nicotine dependence Cannabis use disorder, in remission PLAN: -Patient is admitted under voluntary status to [facility] for stabilization of psychiatric symptoms and safety. Patient has signed adult voluntary form and medication consent and is placed in patient's chart. -Medications : Continue Luvox 50 mg twice daily for OCD, Lamictal 100 mg daily for mood stabilization, Xanax 0.5 mg 3 times daily as needed for anxiety -Xanax and Zyprexa PRN for agitation/aggression -Patient was counselled on substance abuse and desired to cut back on use -Patient was informed of the risks, benefits and side effects of the medication and patient verbally consented to taking the medications. Patient signed med consent form and was placed in chart. -Internal Medicine consult to perform medical evaluation and physical. -NRT -nicotine patch -SW on board for discharge planning. Encourage patient to participate in groups to work on coping skills. Anticipate discharge home tomorrow, pending no concerns from patient's mother 07/19/24 11:51
--- NOTE | 2024-07-19 22:30 | P.MDCNMH ---
<Dyllan Burciaga - Last Filed: 07/19/24 22:24> History of Present Illness H&P Date: 07/19/24 History of present illness; 34-year-old male sent to the emergency department for further psychiatric evaluation. Patient was recently discharged from the emergency department however upon being discharged states his symptoms got worse. Stating that he had been having worsening voices and that he is depressed and has suicidal ideation. Upon evaluation in the [facility] with Dr. Valdivia he currently denied auditory or visual hallucinations. Denies any flight of ideas/racing thoughts and increased in goal-directed behavior. Additionally, patient denies any suicidal or homicidal ideations with intent or plan. Patient admits to being a former smoker, up to 3 packs/day, hvaing quite within the last few weeks. Additionally, states he is a former marijuana smoker who recently quit within the last few weeks. Patient denies alcohol use or recreational drug use. REVIEW OF SYSTEMS: All systems reviewed, pertinent positives and negatives noted in HPI. All other symptoms are negative. PHYSICAL EXAMINATION: Vitals reviewed GENERAL: No acute distress. Well developed, well nourished. HEENT: No scleral icterus. Normocephalic, atraumatic. ABDOMEN: Soft, nontender, nondistended, normoactive bowel sounds. No palpable organomegaly. MUSCULOSKELETAL: No apparent joint swelling and deformities. EXTREMITIES: No apparent cyanosis, clubbing, or pedal edema. NEUROLOGICAL: The patient is alert and oriented x3, Gross neurological examination did not reveal any focal deficits. 5/5 strength bilateral UE and LE; CN2-12 intact, without gross abnormality. CN2-12 intact without any gross abnormality. SKIN: No apparent rashes. Assessment and plan 34-year-old male sent to the emergency department for further psychiatric evaluation. Patient was recently discharged from the emergency department however upon being discharged states his symptoms got worse. Stating that he had been having worsening voices and that he is depressed and has suicidal ideation. Patient will be followed by internal medicine for medical management. Chronic Medical Conditions #GERD - Resume home pantoprazole 40mg w/breakfast #IBS - Patient states causes anxiety more than anything else - Continue with Xanax 0.5 mg PO as needed #History of nicotine dependence - Continue nicotine 14mg/24-hour patch - Counseled patient on smoking cessation #OCD, ADHD, anxiety, PTSD -Psychiatric medications continued as per primary psychiatry team Code status: Full code Patient is stable from medical stand point. Dictation was produced using [employer] dictation software. Please excuse any grammatical, word or spelling errors. 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 PT IS ABLE TO MAKE DECISIONS FOR HIMSELF History of Any Multi-Drug Resistant Organisms: None Reported Past Surgical History: Tonsillectomy Additional Past Surgical History / Comment(s): wisdom teeth removed. Past Anesthesia/Blood Transfusion Reactions: No Reported Reaction Additional Past Anesthesia/Blood Transfusion Reaction / Comment(s): NEVER HAD BLOOD TRANSFUSION Past Psychological History: ADD/ADHD, Anxiety, Bipolar, Depression, PTSD Additional Psychological History / Comment(s): OCD Smoking Status: Former smoker Past Alcohol Use History: None Reported Additional Past Alcohol Use History / Comment(s): PAST HX OF ALCOHOL ABUSE. He is currently living at home with his parents. MOM STATES PT QUIT SMOKING 21 DAYS AGO-HAS NICOTINE PATCH Past Drug Use History: Marijuana Additional Drug Use History / Comment(s): NO LONGER USING MARIJUANA - Past Family History Sister(s) Additional Family Medical History / Comment(s): He has one sister that is healthy. He also has a 4-year-old daughter that is healthy. Father Family Medical History: GERD/Reflux Additional Family Medical History / Comment(s): DAD HAS ALSO NEVER BEEN AN ALCOHOLIC-RARELY, RARELY DRINKS. Mother Family Medical History: Cancer Additional Family Medical History / Comment(s): MOM STATES SHE HAS NEVER BEEN AN ALCOHOLIC-MOM RARELY ,RARELY DRINKS. HX THYROID CANCER Medications and Allergies Home Medications Medication Instructions Recorded Confirmed Type Temazepam [Restoril] 15 mg PO HS 03/22/24 07/19/24 History fluvoxaMINE MALEATE 50 mg PO BID 03/25/24 07/19/24 History ALPRAZolam [Xanax] 0.5 mg PO TID PRN #9 tablet 07/18/24 07/19/24 Rx LORazepam [Ativan] 1 mg PO Q8H PRN 07/18/24 07/19/24 History Nicotine 21Mg/24Hr Patch [Habitrol] 1 patch TRANSDERM HS 07/18/24 07/19/24 History Omeprazole [PriLOSEC] 20 mg PO AC-BRKFST 07/18/24 07/19/24 History lamoTRIgine [LaMICtal] 100 mg PO DAILY 07/18/24 07/19/24 History Allergies Allergy/AdvReac Type Severity Reaction Status Date / Time aripiprazole [From Abilify] Allergy Unknown Agitation Verified 07/19/24 00:50 cariprazine [From Vraylar] Allergy Unknown Agitation Verified 07/19/24 00:50 citalopram [From Celexa] Allergy Unknown Agitation Verified 07/19/24 00:50 divalproex sodium Allergy Unknown Agitation Verified 07/19/24 00:50 [From Depakote] paroxetine [From Paxil] Allergy Unknown Agitation Verified 07/19/24 00:50 sertraline [From Zoloft] Allergy Unknown Agitation Verified 07/19/24 00:50 phenobarbital AdvReac Severe Rapid Verified 07/19/24 00:50 Heart Rate zolpidem tartrate AdvReac Unknown Altered Verified 07/19/24 00:50 [From Ambien] Mental Status estropipate [From Ogen 2.5] AdvReac Twitching Verified 07/19/24 00:50 of Legs haloperidol [From Haldol] AdvReac Agitation Verified 07/19/24 00:50 lorazepam [From Ativan] AdvReac Hallucinati Verified 07/19/24 00:50 ons methylprednisolone AdvReac Altered Verified 07/19/24 00:50 [From Solu-Medrol] Mental Status Physical Exam Vitals: Vital Signs Temp Pulse Pulse Resp BP BP Pulse Ox 07/19/24 08:15 89 16 105/69 07/19/24 06:31 97.1 F L 67 14 89/46 97 07/19/24 01:33 97.9 F 69 15 102/70 99 07/19/24 00:55 98.6 F 61 17 94/59 98 07/18/24 22:20 98.6 F 94 18 109/72 97 Intake and Output 07/19/24 07/19/24 07/19/24 06:59 14:59 22:59 Other: Weight 79.067 kg <Rayo Bardales M - Last Filed: 07/19/24 23:53> Physical Exam Vitals: Vital Signs Temp Pulse Pulse Resp BP BP Pulse Ox 07/19/24 08:15 89 16 105/69 07/19/24 06:31 97.1 F L 67 14 89/46 97 07/19/24 01:33 97.9 F 69 15 102/70 99 07/19/24 00:55 98.6 F 61 17 94/59 98 Cranial Nerve Examination - Cranial Nerves Cranial Nerve II- Optic: Intact Cranial Nerve III- Oculomotor: Intact Cranial Nerve IV- Trochlear: Intact Cranial Nerve V- Trigeminal: Intact Cranial Nerve - Abducens: Intact Cranial Nerve VII- Facial: Intact Cranial Nerve VIII- Auditory: Intact Cranial Nerve IX- Glossopharyngeal: Intact Cranial Nerve X- Vagus: Intact Cranial Nerve XI- Accessory: Intact Cranial Nerve XII- Hypoglossal: Intact Assessment and Plan Assessment: I have seen and evaluated the patient today. I Discussed the case with the resident and agree with the resident's findings I edited the assessment and plan as necessary as documented in the resident's note.
[2024-07-20 06:50] VITALS: RESP 14
[2024-07-20 08:03] LABS: ALT 24 U/L (4-49); AST 24 U/L (17-59); Albumin 4.5 g/dL (3.5-5.0); Alkaline Phosphatase 85 U/L (38-126); Bilirubin,Unconjugated 0.4 mg/dL (0.0-1.1); Total Bilirubin 0.4 mg/dL (0.2-1.3); Total Protein 6.4 g/dL (6.3-8.2)
[2024-07-20] MEDS: LOPERAMIDE 2 MG CAP PO STA (08:18)
[2024-07-20 10:18] VITALS: TEMP 97
[2024-07-20 12:27] LABS: Appearance,Urine Clear (Clear); Bilirubin,Urine Negative (Negative); Blood,Urine Trace (Negative); Color,Urine Yellow; Glucose,Urine (UA) Negative (Negative); Ketones,Urine Negative (Negative); Leukocyte Esterase,Urine Negative (Negative); Mucus,Urine Many /hpf; Nitrite,Urine Negative (Negative); Protein,Urine Negative (Negative); RBC,Urine 4 /hpf (0-5); Specific Gravity,Urine 1.028 (1.001-1.035); Urobilinogen,Urine <2.0 mg/dL (<2.0); WBC,Urine 2 /hpf (0-5)
--- NOTE | 2024-07-20 13:05 | P.PN ---
Progress Note - Text Progress Note Date: 07/20/24 Interval History: Patient was seen wandering the hallways and was directable and agreeable to sandhya malone with ghost writer in the office. He reports his IBS is flaring up and he is having severe abdominal pain. Noted overnight patient was displaying bizarre behaviors such as feeling his toilet up with toilet paper with no waste or urine in the toilet. Discussed with patient these behaviors and the decision to delay his discharge given these concerns. Patient has a history of sensitivities to several psychotropic medications however patient ended up agreeing upon trialing Geodon today. Spoke to patient's mother who is also his guardian who states patient exhibits these behaviors at home for the past few months since being diagnosed with IBS. She states at home she limits his toilet paper and toilet time as he has OCD and displays ritualistic behaviors. Mom expresses no concerns with these behaviors however she was agreeable with trialing Geodon as well. She feels like patient's auditory hallucinations were directly related to his Ativan and she feels like Xanax is a better option for him. At this time patient denies any suicidal or homicidal ideations, intent or plan. Patient denies any auditory, visual hallucinations and denies any paranoia or delusions. Patient denies any side effects from the medications and has been compliant with meds. Mental Status Exam: General Appearance: Patient appears to be stated age is alert, directable, and cooperative. Behavior: Patient is calmly seated without any agitated behavior. Speech: Patient's speech is fluent and nonpressured. Mood/Affect: Mood is improving mildly, affect is congruent and constricted. Suicidality/Homicidality: Patient denies having any suicidal or homicidal ideation intent or plan. Perceptions: Patient denies any visual hallucinations and denies any auditory hallucinations Though content/process: There was some evidence overnight of bizarre behaviors however patient today displayed no disorganized station and thoughts or delusions Memory and concentration: AOX3, grossly intact for the purposes of this session Judgment and insight: Improving mildly Assessment Psychosis, unspecified OCD Developmental delay Nicotine dependence History of PTSD Cannabis use disorder, in remission Plan: -Patient continues to meet criteria for inpatient psychiatric admission for symptom stabilization and safety. Patient has signed adult voluntary form and medication consent and was placed in patient's chart. -Medications: Start Geodon 20 mg daily with dinner, patient encouraged to eat at least 350 shanna to increase absorption. Continue Luvox 50 mg twice daily for OCD, Lamictal 100 mg daily for mood stabilization, Xanax 0.5 mg 3 times daily as needed for anxiety -When necessary Zyprexa and Xanax for agitation/aggression. -Labs: Reviewed -NRT -nicotine patch -SW on board for discharge planning. Encouraged the patient to participate in milieu. Anticipate discharge home with mom Carrillo, she confirmed no firearms in the home
[2024-07-20 16:14] LABS: Chol/HDL Ratio 3.76 Ratio; LDL Cholesterol,Calculated 65.7 mg/dL (0.0-131.0)
[2024-07-20] MEDS: ZIPRASIDONE 20 MG CAP PO SCH (16:54)
[2024-07-20 22:56] LABS: Urine Alcohol Negative (Negative); Urine Barbiturate Negative (Negative); Urine Cocaine Negative (Negative); Urine Methadone Negative (Negative); Urine Opiates Negative (Negative); Urine Phencyclidine Negative (Negative)
[2024-07-21 06:39] VITALS: BP 91/57; PULSE 57
--- NOTE | 2024-07-21 12:37 | P.DS ---
Providers Date of admission: 07/19/24 00:26 Expected date of discharge: 07/21/24 Attending physician: Laura Valdivia MD Consults: 07/19/24 00:41 Consult Physician Routine Consulting Provider: Jeancarlos Coles Consult Reason/Comments: For H & P for Medical Follow Up Do you want consulting provider notified?: Yes, Notify in am Primary care physician: Sumeet Ag Randell - Discharge Diagnosis(es) (1) Psychosis Current Visit: Yes Status: Acute Priority: High (2) Cannabis use disorder in remission Current Visit: No Status: Chronic Priority: Low (3) OCD (obsessive compulsive disorder) Current Visit: Yes Status: Acute Priority: Medium (4) Developmental delay, moderate Current Visit: Yes Status: Acute Priority: Medium (5) PTSD (post-traumatic stress disorder) Current Visit: Yes Status: Chronic Priority: Low (6) Nicotine dependence Current Visit: Yes Status: Chronic Priority: Low Hospital Course: Admission HPI: Admission note was completed by filing writer "Patient presented to the hospital. Per ED note, "34-year-old male presents emergency department for psychiatric evaluation. Patient was just discharged from the Emergency Department after evaluation he states symptoms worsened he states that he is having worsening voices he states that he is depressed and has suicidal ideation. Patient denies any self-harm." Patient seen and evaluated on the unit and was agreeable to speak to filing writer in office. States having a severe allergic reaction to Ativan which was a newer med added by his PCP in place of Xanax for anxiety. He mentions taking Ativan and began self harming himself and was reporting auditory hallucinations that has since subsided. He states his PCP was trying to wean him off Xanax given patient's withdrawal symptoms however he was not able to tolerate this. Patient states he was diagnosed with IBS back in January and that he has been having difficulty with loose stools since then. He reports belly pain however does report eating okay with no loose stools thus far today. He states his primary care doctor prescribes all of his medications however he is interested in following up with a psychiatrist. He feels like overall his medications are working well and he is not agreeable to any adjustments at this time. Patient denied any sleep difficulties, mood changes, appetite changes, anhedonia but does report low energy related to his IBS. He reports issues with cleanliness and intrusive thoughts. Reports being off Restoril for few months with no issues with sleep. Patient denies any suicidal or homicidal ideations intent or plan. At this time patient denies any auditory or visual hallucinations. Patient denies any flight of ideas racing thoughts and increased in goal directed behavior. Patient admits to using no substances as he has quit tobacco." Hospital course: Upon admission to the unit patient was directable and agreeable to commence treatment and signed adult voluntary form.. Patient got along well with other patients on the unit and followed unit protocol. Patient was compliant with the medications and denied any side effects throughout hospital course. Patient was continued on Luvox 50 mg twice daily for OCD, Lamictal 100 mg daily for mood stabilization, Xanax 0.5 mg 3 times daily as needed for anxiety. Patient and mother who is his guardian both corroborated that they feel like his psychosis was directly related to changing anxiety medications from Xanax to Ativan that quickly resolved when switched back to Xanax. Patient was displaying some bizarre behaviors at nighttime which prompted filing writer to start patient on Geodon 20 mg daily with dinner however mother did report patient has been displaying these behaviors at home and appears more related to OCD than psychosis. Patient spoke of his stressors and engaged in therapy both group and individual. Patient was also seen by medical team for history and physical exam. Throughout the course of the hospitalization patient gradually improved with regards to mood, anxiety, sleep and returned back to their baseline level of functioning. On the day of discharge patient denied any suicidal or homicidal ideations intent or plan denied any auditory or visual hallucinations. The patient denied any access to guns or weapons. Patient denied any paranoia and did not endorse any delusions. Patient does not have a significant history of substance abuse and was counseled on abstaining from all substances including alcohol and marijuana. Patient was also counseled on the medications and need for regular compliance and was encouraged to follow-up with their outpatient appointment for mental health and also for primary care. Prior to discharge a family meeting will be arranged by social work administrator to answer any questions and ensure safety upon discharge incuding making sure that guns/weapons are either removed from the home or locked away. Patient to be discharged back home with mom who is also his guardian with [facility]. Mental status exam: General Appearance: Patient appears to be stated age is alert, pleasant, and cooperative. Patient is in no acute distress and has improved hygiene and grooming Behavior: Patient is calmly seated without any agitated behavior. Speech: Patient's speech is fluent and nonpressured. Mood/Affect: Patient reports their mood is "good", affect is congruent and euthymic. Suicidality/Homicidality: Patient denies having any suicidal or homicidal ideation intent or plan. Perceptions: Patient denies any auditory or visual hallucinations. Though content/process: There is no evidence of any delusional thought content and thought process is linear and goal-directed. Memory and concentration: AOX3, grossly intact for the purposes of this session. Can spell "WORLD" backwards correctly. Judgment and insight: Improved Impression: Psychosis, unspecified OCD Developmental delay Nicotine dependence History of PTSD Cannabis use disorder, in sustained remission Plan: -Continue with discharge today as patient has improved and stabilized psychiatrically and is not currently an imminent threat to themself and/or others. -Continue medications: Geodon 20 mg daily with dinner, Luvox 50 mg twice daily, Lamictal 100 mg daily, Xanax 0.5 mg 3 times daily as needed -Patient was counseled on the need for medication compliance and appropriate follow-up at mental health and also primary care for medical issues. Patient verbalized understanding and agreed. -Social work to help coordinate patients discharge today arrange for and conduct family meeting to ensure safety upon discharge and answer any questions/concerns. also to ensure safe home environment that guns/weapons are either removed from the home or locked away. Social work also to arrange for patients follow [facility] along with follow up with primary care provider. -Patient counseled on abstaining from recreational drugs and marijuana and alcohol. Was informed/educated on the adverse effects on their physical and mental health. Patient verbally agreed and understood. -Patient was instructed to return to the hospital or seek immediate medical care if their psychiatric or medical symptoms do worsen or reoccur. Allergies Allergy/AdvReac Type Severity Reaction Status Date / Time aripiprazole [From Abilify] Allergy Unknown Agitation Verified 07/19/24 00:50 cariprazine [From Vraylar] Allergy Unknown Agitation Verified 07/19/24 00:50 citalopram [From Celexa] Allergy Unknown Agitation Verified 07/19/24 00:50 divalproex sodium Allergy Unknown Agitation Verified 07/19/24 00:50 [From Depakote] paroxetine [From Paxil] Allergy Unknown Agitation Verified 07/19/24 00:50 sertraline [From Zoloft] Allergy Unknown Agitation Verified 07/19/24 00:50 phenobarbital AdvReac Severe Rapid Verified 07/19/24 00:50 Heart Rate zolpidem tartrate AdvReac Unknown Altered Verified 07/19/24 00:50 [From Ambien] Mental Status estropipate [From Ogen 2.5] AdvReac Twitching Verified 07/19/24 00:50 of Legs haloperidol [From Haldol] AdvReac Agitation Verified 07/19/24 00:50 lorazepam [From Ativan] AdvReac Hallucinati Verified 07/19/24 00:50 ons methylprednisolone AdvReac Altered Verified 07/19/24 00:50 [From Solu-Medrol] Mental Status Vital Signs Temp 97 F L 07/20/24 10:16 Pulse 57 L 07/21/24 06:38 Resp 14 07/21/24 06:38 BP 91/57 07/21/24 06:38 Pulse Ox 97 07/21/24 06:38 FiO2 Abnormal Labs 07/20/24 07/20/24 07/20/24 07:07 11:45 11:45 HDL Cholesterol 34.30 L Urine Blood Trace H Urine Mucus Many H U Benzodiazepines Scrn Positive A U Cannabinoids Screen Positive A Patient Condition at Discharge: Stable Plan - Discharge Summary Discharge Rx Participant: Yes New Discharge Prescriptions: New Ziprasidone [Geodon] 20 mg PO 1700 30 Days #30 cap Nicotine 14Mg/24Hr Patch [Habitrol] 1 patch TRANSDERM DAILY patch Continue lamoTRIgine [LaMICtal] 100 mg PO DAILY 30 Days #30 tab ALPRAZolam [Xanax] 0.5 mg PO TID PRN #9 tablet PRN Reason: Anxiety fluvoxaMINE MALEATE 50 mg PO BID 30 Days #60 tab Omeprazole [PriLOSEC] 20 mg PO AC-BRKFST 30 Days #30 cap Discontinued Temazepam [Restoril] 15 mg PO HS LORazepam [Ativan] 1 mg PO Q8H PRN PRN Reason: Anxiety No Action Nicotine 21Mg/24Hr Patch [Habitrol] 1 patch TRANSDERM HS Discharge Medication List ALPRAZolam [Xanax] 0.5 mg PO TID PRN #9 tablet 07/18/24 [Rx] Nicotine 21Mg/24Hr Patch [Habitrol] 1 patch TRANSDERM HS 07/18/24 [History] Nicotine 14Mg/24Hr Patch [Habitrol] 1 patch TRANSDERM DAILY patch 07/21/24 [Rx] Omeprazole [PriLOSEC] 20 mg PO AC-BRKFST 30 Days #30 cap 07/21/24 [Rx] Ziprasidone [Geodon] 20 mg PO 1700 30 Days #30 cap 07/21/24 [Rx] fluvoxaMINE MALEATE 50 mg PO BID 30 Days #60 tab 07/21/24 [Rx] lamoTRIgine [LaMICtal] 100 mg PO DAILY 30 Days #30 tab 07/21/24 [Rx] Follow up Appointment(s)/Referral(s): [facility] - 07/31/24 1:30 pm (07/31 @ 13:30 [place] 07/31 @ 14:00 with Walker Palacio ) Sumeet Mejias III, MD [Primary Care Provider] - 1-2 days Patient Instructions/Handouts: How to Stop Smoking (DC), Obsessive Compulsive Disorder (DC), Psychotic Disorder (DC) Activity/Diet/Wound Care/Special Instructions: Avoid the use of street drugs and alcohol. Take all medications as prescribed. When you are in need of refills on your medications, please contact your medical provider and/or outpatient psychiatrist/provider to have this done. Please go to your scheduled outpatient appointment for aftercare treatment. If symptoms return or become worse, call the crisis line at and/or go to the nearest emergency room for evaluation. National Suicide Hotline 629
== END 2024-07-21 12:30 | disposition home or self-care (01) | DRG 751 ==
LOC: EC 22:11 → 3MHU 07-19 00:26
PROVIDERS: ADMIT Psychiatry & Neurology Psychiatry; ATTEND Psychiatry & Neurology Psychiatry
DX: F29 Unspecified psychosis not due to a substance or known physiological condition (principal); R45.851 Suicidal ideations; F42.9 Obsessive-compulsive disorder, unspecified; F43.10 Post-traumatic stress disorder, unspecified; K21.9 Gastro-esophageal reflux disease without esophagitis; F41.9 Anxiety disorder, unspecified; F90.9 Attention-deficit hyperactivity disorder, unspecified type; K58.9 Irritable bowel syndrome, unspecified; R62.50 Unspecified lack of expected normal physiological development in childhood; Z79.899 Other long term (current) drug therapy; Z87.891 Personal history of nicotine dependence
CPT/HCPCS: 80061; 80076; 80306; 81001; 82075; 83036; 84443; 87635; 99285

== ENCOUNTER 2024-07-27 23:44 | Emergency (ER) | payer OTHER ==
[2024-07-27 23:55] VITALS: BP 127/82; PULSE 85; RESP 18; TEMP 97.7
[2024-07-28 00:29] LABS: Basophils % (A) 0 %; Eosinophils # (A) 0.4 k/uL (0-0.7); Eosinophils % (A) 4 %; HCT 45.8 % (39.0-53.0); HGB 15.5 gm/dL (13.0-17.5); Lymphocytes # (A) 3.9 k/uL (1.0-4.8); Lymphocytes % (A) 34 %; MCH 30.8 pg (25.0-35.0); MCHC 33.9 g/dL (31.0-37.0); MCV 90.9 fL (80.0-100.0); Mean Platelet Volume 8.4; Monocytes # (A) 0.4 k/uL (0-1.0); Monocytes % (A) 4 %; Neutrophils # (A) 6.5 k/uL (1.3-7.7); Neutrophils % (A) 56 %; Platelet Count 194 k/uL (150-450); RBC 5.03 m/uL (4.30-5.90); RDW 13.8 % (11.5-15.5); WBC 11.5 k/uL (3.8-10.6)
[2024-07-28 00:33] LABS: ALT 111 U/L (4-49); AST 60 U/L (17-59); African American GFR (CKD) >90 (>60 ml/min/1.73 sqM); Albumin 4.8 g/dL (3.5-5.0); Alkaline Phosphatase 107 U/L (38-126); Amylase 43 U/L (30-110); Anion Gap 8 mmol/L; Blood Urea Nitrogen 20 mg/dL (9-20); Calcium 9.4 mg/dL (8.4-10.2); Carbon Dioxide 27 mmol/L (22-30); Chloride 105 mmol/L (98-107); Glucose 78 mg/dL (74-99); Lipase 29 U/L (23-300); Non-African American GFR(CKD) >90 (>60 ml/min/1.73 sqM); Potassium 3.7 mmol/L (3.5-5.1); Sodium 140 mmol/L (137-145); Total Bilirubin 0.8 mg/dL (0.2-1.3); Total Protein 7.1 g/dL (6.3-8.2)
--- NOTE | 2024-07-28 00:47 | XR ---
EXAMINATION TYPE: XR KUB DATE OF EXAM: 07/28/2024 12:40 AM CLINICAL HISTORY: Abdominal pain TECHNIQUE: Two frontal KUB images of the abdomen are obtained. COMPARISON: Abdominal x-ray July 18, 2024. FINDINGS: Scattered gas is seen in non-distended small and large bowel loops. Lung bases are clear. O sseous structures are intact. No suspicious calcifications are seen. IMPRESSION: Overall nonobstructive bowel gas pattern. [facility], , 07/28/2024 12:45 AM
--- NOTE | 2024-07-28 00:47 | ED ---
Abdominal Pain HPI - General Source: patient, RN notes reviewed Mode of arrival: ambulatory Limitations: no limitations <Annel Chacon - Last Filed: 07/28/24 00:46> - General Source: patient, RN notes reviewed, old records reviewed <Jamari Vegas - Last Filed: 07/28/24 02:51> - General Chief Complaint: Abdominal Pain Stated Complaint: Abdominal Pain Time Seen by Provider: 07/28/24 00:46 - History of Present Illness Initial Comments: Quick note: 34-year-old male presented to the ER with a chief complaint of abdominal pain. Patient states that started yesterday. Patient states he is "farting stool". Admits to nausea and vomiting. Denies fevers. (Annel Chacon) Is a 34-year-old male who presents emergency department complaining of chronic abdominal pain as well as chronic diarrhea. States this occurs on a daily basis but was slightly worse today. Originally seen as a quick note. No new complaints. Denies chest pain or shortness of breath. Denies cough, congestion. He states when he farts he poops. States this happens frequently for him. Presents asking for pain medication. (Jamari Vegas) - Related Data Home Medications Medication Instructions Recorded Confirmed Nicotine 21Mg/24Hr Patch [Habitrol] 1 patch TRANSDERM HS 07/18/24 07/19/24 Previous Rx's Medication Instructions Recorded ALPRAZolam [Xanax] 0.5 mg PO TID PRN #9 tablet 07/18/24 Nicotine 14Mg/24Hr Patch [Habitrol] 1 patch TRANSDERM DAILY patch 07/21/24 Omeprazole [PriLOSEC] 20 mg PO AC-BRKFST 30 Days #30 cap 07/21/24 Ziprasidone [Geodon] 20 mg PO 1700 30 Days #30 cap 07/21/24 fluvoxaMINE MALEATE 50 mg PO BID 30 Days #60 tab 07/21/24 lamoTRIgine [LaMICtal] 100 mg PO DAILY 30 Days #30 tab 07/21/24 Allergies Allergy/AdvReac Type Severity Reaction Status Date / Time aripiprazole [From Abilify] Allergy Unknown Agitation Verified 07/27/24 23:55 cariprazine [From Vraylar] Allergy Unknown Agitation Verified 07/27/24 23:55 citalopram [From Celexa] Allergy Unknown Agitation Verified 07/27/24 23:55 divalproex sodium Allergy Unknown Agitation Verified 07/27/24 23:55 [From Depakote] paroxetine [From Paxil] Allergy Unknown Agitation Verified 07/27/24 23:55 sertraline [From Zoloft] Allergy Unknown Agitation Verified 07/27/24 23:55 phenobarbital AdvReac Severe Rapid Verified 07/27/24 23:55 Heart Rate zolpidem tartrate AdvReac Unknown Altered Verified 07/27/24 23:55 [From Ambien] Mental Status estropipate [From Ogen 2.5] AdvReac Twitching Verified 07/27/24 23:55 of Legs haloperidol [From Haldol] AdvReac Agitation Verified 07/27/24 23:55 lorazepam [From Ativan] AdvReac Hallucinati Verified 07/27/24 23:55 ons methylprednisolone AdvReac Altered Verified 07/27/24 23:55 [From Solu-Medrol] Mental Status Review of Systems ROS Other: All systems not noted in ROS Statement are negative. <Annel Chacon - Last Filed: 07/28/24 00:46> ROS Other: All systems not noted in ROS Statement are negative. <Jamari Vegas - Last Filed: 07/28/24 02:51> ROS Statement: Those systems with pertinent positive or pertinent negative responses have been documented in the HPI. Review of Systems: CONST: Denies fever EYES: Denies blurry vision ENT: Denies nasal congestion C/V: Denies Chest pain RESP: Denies shortness of breath GI: Endorses nonspecific abdominal pain : Denies dysuria SKIN: Denies rash. MSK: Denies joint pain. 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 PT IS ABLE TO MAKE DECISIONS FOR HIMSELF History of Any Multi-Drug Resistant Organisms: None Reported Past Surgical History: Tonsillectomy Additional Past Surgical History / Comment(s): wisdom teeth removed. Past Anesthesia/Blood Transfusion Reactions: No Reported Reaction Additional Past Anesthesia/Blood Transfusion Reaction / Comment(s): NEVER HAD BLOOD TRANSFUSION Past Psychological History: ADD/ADHD, Anxiety, Bipolar, Depression, PTSD Smoking Status: Former smoker Past Alcohol Use History: None Reported Past Drug Use History: Marijuana - Past Family History Sister(s) Additional Family Medical History / Comment(s): He has one sister that is healthy. He also has a 4-year-old daughter that is healthy. Father Family Medical History: GERD/Reflux Additional Family Medical History / Comment(s): DAD HAS ALSO NEVER BEEN AN ALCOHOLIC-RARELY, RARELY DRINKS. Mother Family Medical History: Cancer Additional Family Medical History / Comment(s): MOM STATES SHE HAS NEVER BEEN AN ALCOHOLIC-MOM RARELY ,RARELY DRINKS. HX THYROID CANCER <Annel Chacon - Last Filed: 07/28/24 00:46> General Exam Limitations: no limitations <Annel Chacon - Last Filed: 07/28/24 00:46> <Jamari Vegas - Last Filed: 07/28/24 02:51> - General Exam Comments Initial Comments: Visual Physical Exam Vital signs reviewed General: Well-appearing, nontoxic, no acute distress. Head: Normocephalic, atraumatic Eyes: PERRLA, EOMI ENT: Airway patent Chest: Nonlabored breathing Skin: No visual rash, normal skin tone Neuro: Alert and oriented 3 Musculoskeletal: No gross abnormalities (Annel Chacon) General: Appears in no acute distress. HEAD: Normal with no signs of head trauma. EYES: PERRLA, EOMI, conjunctiva normal, no discharge. ENT: Hearing grossly intact, normal oropharynx. RESPIRATORY: Clear breath sounds bilaterally. No wheezes, rales, or rhonchi. C/V: Regular rate and rhythm. S1 and S2 auscultated, no edema, peripheral pulses 2+ and intact throughout ABD: Abd is soft, nondistended. No focal tenderness to palpation on the abdoman. no guarding. No rebound tenderness. No peritoneal signs. Abdominal exam unremarkable. EXT: Normal range of motion, no obvious deformity SKIN: No rashes or lesions observed on exposed skin. NEURO: Alert and oriented x 4. (Jamari Vegas) Course Vital Signs 07/27/24 23:53 Temperature 97.7 F Pulse Rate 85 Respiratory 18 Rate Blood Pressure 127/82 O2 Sat by Pulse 98 Oximetry Medical Decision Making - Lab Data Result diagrams: 07/28/24 00:07 07/28/24 00:07 <Annel Chacon - Last Filed: 07/28/24 00:46> - Lab Data Result diagrams: 07/28/24 00:07 07/28/24 00:07 <Jamari Vegas - Last Filed: 07/28/24 02:51> - Medical Decision Making I performed the quick note portion of this chart. Electronically signed by Annel Chacon PA-C (Annel Chacon) Was pt. sent in by a medical professional or institution (LINO Patel, COMPUTER INSTALLATION ENGINEER, urgent care, hospital, or senior living...) When possible be specific @ -No Did you speak to anyone other than the patient for history (EMS, parent, family, police, friend...)? What history was obtained from this source @ -No Did you review nursing and triage notes (agree or disagree)? Why? @ -I reviewed and agree with nursing and triage notes Were old charts reviewed (outside hosp., previous admission, EMS record, old EKG, old radiological studies, urgent care reports/EKG's, senior living records)? Report findings @ -Old charts which shows patient is a frequent visitor for abdominal pain, diarrhea. Recent visit for this was in July 10, 2024, earlier this month Differential Diagnosis (chest pain, altered mental status, abdominal pain women, abdominal pain men, vaginal bleeding, weakness, fever, dyspnea, syncope, headache, dizziness, GI bleed, back pain, seizure, CVA, palpatations, mental health, musculoskeletal)? @ -Diarrhea, constipation, chronic abdominal pain. This list is not all inc lusive. EKG interpreted by me (3pts min.). @ -As above X-rays interpreted by me (1pt min.). @ -KUB x-ray reveals no obvious acute intra-abdominal process. CT interpreted by me (1pt min.). @ -None done U/S interpreted by me (1pt. min.). @ -None done What testing was considered but not performed or refused? (CT, X-rays, U/S, labs)? Why? @ -None What meds were considered but not given or refused? Why? @ -None Did you discuss the management of the patient with other professionals (professionals i.e. , PA, COMPUTER INSTALLATION ENGINEER, lab, RT, psych nurse, psychologist social, criminal justice lawyer, teacher, chief program officer, mental health case manager)? Give summary @ -No Was smoking cessation discussed for >3mins.? @ -No Was critical care preformed (if so, how long)? @ -No Were there social determinants of health that impacted care today? How? (Homelessness, low income, unemployed, alcoholism, drug addiction, transportation, low edu. Level, literacy, decrease access to med. care, half-way, rehab)? @ -No Was there de-escalation of care discussed even if they declined (Discuss DNR or withdrawal of care, Hospice)? DNR status @ -No What co-morbidities impacted this encounter? (DM, HTN, Smoking, COPD, CAD, Cancer, CVA, ARF, Chemo, Hep., AIDS, mental health diagnosis, sleep apnea, morbid obesity)? @ -Chronic abdominal pain, chronic diarrhea/constipation Was patient admitted / discharged? Hospital course, mention meds given and route, prescriptions, significant lab abnormalities, going to OR and other pertinent info. @ -Patient presents emergency department with primarily chronic symptoms. Workup started in triage. Labs are unremarkable. KUB unremarkable. Patient given morphine for analgesia. Patient feeling improved. He will be discharged home at this time. He was in agreement this plan. Vital signs within acceptable limits. Strict return precautions discussed. I instructed the patient to follow up with their PCP in the next 1-3 days. I explained that the patient should return to the emergency department if they experience any worsening symptoms. Strict return precautions were discussed with the patient. The patient expressed understanding of these instructions. I answered all questions that the patient had. The patient was discharged home in good condition with their prescriptions and follow up information. Undiagnosed new problem with uncertain prognosis? @ -No Drug Therapy requiring intensive monitoring for toxicity (Heparin, Nitro, Insulin, Cardizem)? @ -No Were any procedures done? @ -No Diagnosis/symptom? @ -Chronic abdominal pain, chronic diarrhea Acute, or Chronic, or Acute on Chronic? @ -Acute on chronic Uncomplicated (without systemic symptoms) or Complicated (systemic symptoms)? @ -Uncomplicated Side effects of treatment? @ -No Exacerbation, Progression, or Severe Exacerbation? @ -No Poses a threat to life or bodily function? How? (Chest pain, USA, IA, pneumonia, PE, COPD, DKA, ARF, appy, cholecystitis, CVA, Diverticulitis, Homicidal, Suicidal, threat to staff... and all critical care pts) @ -Unlikely (Jamari Vegas) - Lab Data Lab Results 07/28/24 07/28/24 07/28/24 Range/Units 00:07 00:07 00:07 WBC 11.5 H (3.8-10.6) k/uL RBC 5.03 (4.30-5.90) m/uL Hgb 15.5 (13.0-17.5) gm/dL Hct 45.8 (39.0-53.0) % MCV 90.9 (80.0-100.0) fL MCH 30.8 (25.0-35.0) pg MCHC 33.9 (31.0-37.0) g/dL RDW 13.8 (11.5-15.5) % Plt Count 194 (150-450) k/uL MPV 8.4 Neutrophils % 56 % Lymphocytes % 34 % Monocytes % 4 % Eosinophils % 4 % Basophils % 0 % Neutrophils # 6.5 (1.3-7.7) k/uL Lymphocytes # 3.9 (1.0-4.8) k/uL Monocytes # 0.4 (0-1.0) k/uL Eosinophils # 0.4 (0-0.7) k/uL Basophils # 0.0 (0-0.2) k/uL Sodium 140 (137-145) mmol/L Potassium 3.7 (3.5-5.1) mmol/L Chloride 105 (98-107) mmol/L Carbon Dioxide 27 (22-30) mmol/L Anion Gap 8 mmol/L BUN 20 (9-20) mg/dL Creatinine 0.75 (0.66-1.25) mg/dL Est GFR (CKD-EPI)AfAm >90 (>60 ml/min/1.73 sqM) Est GFR (CKD-EPI)NonAf >90 (>60 ml/min/1.73 sqM) Glucose 78 (74-99) mg/dL Plasma Lactic Acid Socrates 1.3 (0.7-2.0) mmol/L Calcium 9.4 (8.4-10.2) mg/dL Total Bilirubin 0.8 (0.2-1.3) mg/dL AST 60 H (17-59) U/L ALT 111 H (4-49) U/L Alkaline Phosphatase 107 (38-126) U/L Total Protein 7.1 (6.3-8.2) g/dL Albumin 4.8 (3.5-5.0) g/dL Amylase 43 (30-110) U/L Lipase 29 (23-300) U/L Disposition <Annel Chacon - Last Filed: 07/28/24 00:46> Is patient prescribed a controlled substance at d/c from ED?: No Time of Disposition: 01:50 <Jamari Vegas - Last Filed: 07/28/24 02:51> Clinical Impression: Chronic abdominal pain, Diarrhea Disposition: HOME SELF-CARE Condition: Good Instructions (If sedation given, give patient instructions): Abdominal Pain (ED) Referrals: Sumeet Mejias III, MD [Primary Care Provider] - 1-2 days
[2024-07-28] MEDS: MORPHINE SULFATE 2 MG/ML SYRINGE IVP STA (01:49)
== END 2024-07-28 01:57 | disposition home or self-care (01) ==
LOC: EC 23:44
DX: G89.29 Other chronic pain (principal); R10.9 Unspecified abdominal pain; R19.7 Diarrhea, unspecified; K59.00 Constipation, unspecified; Z88.8 Allergy status to other drugs, medicaments and biological substances; Z88.1 Allergy status to other antibiotic agents; Z87.891 Personal history of nicotine dependence
CPT/HCPCS: 36415; 80053; 82150; 83605; 83690; 85025; 74018; 99284; 96374; J2270

== ENCOUNTER 2024-07-29 16:52 | Emergency (ER) | payer OTHER ==
[2024-07-29 17:28] VITALS: TEMP 99.2
--- NOTE | 2024-07-29 18:10 | ED ---
Nausea/Vomiting/Diarrhea HPI - General Chief complaint: Nausea/Vomiting/Diarrhea Stated complaint: GI issues Time Seen by Provider: 07/29/24 18:08 Source: patient, RN notes reviewed, old records reviewed Mode of arrival: wheelchair Limitations: no limitations - History of Present Illness Initial comments: 34-year-old male presented to the ER with a chief complaint of abdominal pain and diarrhea. Patient reports a history of IBS. States for the past couple of days he has been having extreme sharp 10 out of 10 abdominal pain. He also reports consistent diarrhea. Patient was seen here 2 days prior for similar complaint. Patient states he received morphine at that time which greatly improved symptoms. Patient denies any nausea, vomiting or fevers. He denies any hematochezia. Mother spoke with triage nurse and states patient had st ringy, tarry black stools yesterday. She also reports they have tried multiple [id number] remedies including Prilosec's, Kaopectate and simethicone without relief. Patient denies any urinary complaints. Patient denies any cough, congestion, chest pain, shortness of breath or peripheral edema. - Related Data Home Medications Medication Instructions Recorded Confirmed Nicotine 21Mg/24Hr Patch [Habitrol] 1 patch TRANSDERM HS 07/18/24 07/19/24 Previous Rx's Medication Instructions Recorded ALPRAZolam [Xanax] 0.5 mg PO TID PRN #9 tablet 07/18/24 Nicotine 14Mg/24Hr Patch [Habitrol] 1 patch TRANSDERM DAILY patch 07/21/24 Omeprazole [PriLOSEC] 20 mg PO AC-BRKFST 30 Days #30 cap 07/21/24 Ziprasidone [Geodon] 20 mg PO 1700 30 Days #30 cap 07/21/24 fluvoxaMINE MALEATE 50 mg PO BID 30 Days #60 tab 07/21/24 lamoTRIgine [LaMICtal] 100 mg PO DAILY 30 Days #30 tab 07/21/24 Loperamide HCl [Imodium A-D] 2 mg PO ONCE #30 tablet 07/29/24 Allergies Allergy/AdvReac Type Severity Reaction Status Date / Time aripiprazole [From Abilify] Allergy Unknown Agitation Verified 07/29/24 17:20 cariprazine [From Vraylar] Allergy Unknown Agitation Verified 07/29/24 17:20 citalopram [From Celexa] Allergy Unknown Agitation Verified 07/29/24 17:20 divalproex sodium Allergy Unknown Agitation Verified 07/29/24 17:20 [From Depakote] paroxetine [From Paxil] Allergy Unknown Agitation Verified 07/29/24 17:20 sertraline [From Zoloft] Allergy Unknown Agitation Verified 07/29/24 17:20 phenobarbital AdvReac Severe Rapid Verified 07/29/24 17:20 Heart Rate zolpidem tartrate AdvReac Unknown Altered Verified 07/29/24 17:20 [From Ambien] Mental Status estropipate [From Ogen 2.5] AdvReac Twitching Verified 07/29/24 17:20 of Legs haloperidol [From Haldol] AdvReac Agitation Verified 07/29/24 17:20 ketorolac [From Toradol] AdvReac Unknown Verified 07/29/24 18:29 lorazepam [From Ativan] AdvReac Hallucinati Verified 07/29/24 17:20 ons methylprednisolone AdvReac Altered Verified 07/29/24 17:20 [From Solu-Medrol] Mental Status ondansetron [From Zofran] AdvReac Unknown Verified 07/29/24 18:29 Review of Systems ROS Statement: Those systems with pertinent positive or pertinent negative responses have been documented in the HPI. ROS Other: All systems not noted in ROS Statement are negative. 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 PT IS ABLE TO MAKE DECISIONS FOR HIMSELF History of Any Multi-Drug Resistant Organisms: None Reported Past Surgical History: Tonsillectomy Additional Past Surgical History / Comment(s): wisdom teeth removed. Past Anesthesia/Blood Transfusion Reactions: No Reported Reaction Additional Past Anesthesia/Blood Transfusion Reaction / Comment(s): NEVER HAD BLOOD TRANSFUSION Past Psychological History: ADD/ADHD, Anxiety, Bipolar, Depression, PTSD Smoking Status: Former smoker Past Alcohol Use History: None Reported Past Drug Use History: Marijuana - Past Family History Sister(s) Additional Family Medical History / Comment(s): He has one sister that is healthy. He also has a 4-year-old daughter that is healthy. Father Family Medical History: GERD/Reflux Additional Family Medical History / Comment(s): DAD HAS ALSO NEVER BEEN AN ALCOHOLIC-RARELY, RARELY DRINKS. Mother Family Medical History: Cancer Additional Family Medical History / Comment(s): MOM STATES SHE HAS NEVER BEEN AN ALCOHOLIC-MOM RARELY ,RARELY DRINKS. HX THYROID CANCER General Exam Limitations: no limitations General appearance: alert, in no apparent distress Respiratory exam: Present: normal lung sounds bilaterally. Absent: respiratory distress, wheezes, rales, rhonchi, stridor Cardiovascular Exam: Present: regular rate, normal rhythm, normal heart sounds. Absent: systolic murmur, diastolic murmur, rubs, gallop, clicks GI/Abdominal exam: Present: soft, tenderness (generalized), normal bowel sounds Neurological exam: Present: alert, oriented X3, CN II-XII intact Skin exam: Present: warm, intact, normal color, diaphoretic Course Vital Signs 07/29/24 07/29/24 17:20 21:01 Temperature 99.2 F Pulse Rate 101 H 78 Respiratory 18 20 Rate Blood Pressure 129/79 108/69 O2 Sat by Pulse 99 96 Oximetry Medical Decision Making - Medical Decision Making Was pt. sent in by a medical professional or institution (, PA, [employer], urgent care, hospital, or jail...) When possible be specific @ -No Did you speak to anyone other than the patient for history (EMS, parent, family, police, friend...)? What history was obtained from this source @ -Case discussed with patient's mother and guardian, Joya, over the phone. She states he has a history of IBS and for the past couple of days he has had an increase in pain. She notes yesterday he had stringy tarry stool but states he did receive Pepto-Bismol. She has tried everything [id number] without any relief. Did you review nursing and triage notes (agree or disagree)? Why? @ -I reviewed and agree with nursing and triage notes Were old charts reviewed (outside hosp., previous admission, EMS record, old EKG, old radiological studies, urgent care reports/EKG's, jail records)? Report findings @ -Yes, I reviewed ER visit [id number]. Patient seen for similar complaint. Laboratory studies obtained at that time remarkable for leukocytosis of 11.5 no left shift. Patient received symptomatic treatment in the ER and discharged home. Differential Diagnosis (chest pain, altered mental status, abdominal pain women, abdominal pain men, vaginal bleeding, weakness, fever, dyspnea, syncope, headache, dizziness, GI bleed, back pain, seizure, CVA, palpatations, mental health, musculoskeletal)? @ -Differential Abdominal Pain Men: Appendicitis, cholecystitis, diverticulosis, ischemic bowel, pancreatitis, hepatitis, UTI, gastroenteritis, AAA, incarcerated hernia, bowel obstruction, constipation, inflammatory bowel, hepatitis, peptic ulcer disease, splenic infarction, perforated viscus, testicular torsion, this is not meant to be an all-inclusive list EKG interpreted by me (3pts min.). @ -None done X-rays interpreted by me (1pt min.). @ -None done CT interpreted by me (1pt min.). @ -CT abdomen pelvis negative for acute intra-abdominal process. U/S interpreted by me (1pt. min.). @ -None done What testing was considered but not performed or refused? (CT, X-rays, U/S, labs)? Why? @ -None What meds were considered but not given or refused? Why? @ -None Did you discuss the management of the patient with other professionals (professionals i.e. , PA, [employer]PER[employer]OR, lab, RT, psych nurse, social research assistant, escrow assistant, teacher, correctional officer captain, family caseworker)? Give summary @ -No Was smoking cessation discussed for >3mins.? @ -No Was critical care preformed (if so, how long)? @ -No Were there social determinants of health that impacted care today? How? (Homelessness, low income, unemployed, alcoholism, drug addiction, transportation, low edu. Level, literacy, decrease access to med. care, [facility], rehab)? @ -No Was there de-escalation of care discussed even if they declined (Discuss DNR or withdrawal of care, Hospice)? DNR status @ -No What co-morbidities impacted this encounter? (DM, HTN, Smoking, COPD, CAD, Cancer, CVA, ARF, Chemo, Hep., AIDS, mental health diagnosis, sleep apnea, morbid obesity)? @ -IBS Was patient admitted / discharged? Hospital course, mention meds given and route, prescriptions, significant lab abnormalities, going to OR and other pertinent info. @ -Discharge. 34-year-old male presented to the ER with a chief complaint of abdominal pain and diarrhea. History and physical exam completed. Vitals stable. Patient in no signs of acute distress but is mildly diaphoretic on exam. Patient is guarding abdomen. Generalized abdominal tenderness with normal bowel sounds. No rebound tenderness. Laboratory studies obtained prior to imaging as patient has had numerous scans in the past. Laboratory studies unremarkable. Urine analysis unremarkable. Patient received IV fluids and morphine for symptomatic control in the ER. Upon reevaluation, patient reporting continued pain. CT ordered at that time. CT negative for acute intra-abdominal process. Patient received IV Dilaudid at that time. Patient reports improvement of pain at that time and would like to be discharged. Patient discharged with Imodium for diarrhea. Strict return parameters discussed. Patient discharged in stable condition with follow-up to PCP. Patient verbally expressed understanding and agreement with care plan. Case discussed with ED attending, Dr. Garg. Undiagnosed new problem with uncertain prognosis? @ -No Drug Therapy requiring intensive monitoring for toxicity (Heparin, Nitro, Insulin, Cardizem)? @ -No Were any procedures done? @ -No Diagnosis/symptom? @ -Abdominal pain/Diarrhea Acute, or Chronic, or Acute on Chronic? @ -Chronic Uncomplicated (without systemic symptoms) or Complicated (systemic symptoms)? @ -Uncomplicated Side effects of treatment? @ -No Exacerbation, Progression, or Severe Exacerbation? @ -No Poses a threat to life or bodily function? How? (Chest pain, USA, MT, pneumonia, PE, COPD, DKA, ARF, appy, cholecystitis, CVA, Diverticulitis, Homicidal, Suicidal, threat to staff... and all critical care pts) @ -No - Lab Data Result diagrams: 07/29/24 18:23 07/29/24 18:23 Lab Results 07/29/24 07/29/24 07/29/24 Range/Units 18:23 18:23 18:23 WBC 8.1 (3.8-10.6) k/uL RBC 5.26 (4.30-5.90) m/uL Hgb 16.1 (13.0-17.5) gm/dL Hct 49.0 (39.0-53.0) % MCV 93.1 (80.0-100.0) fL MCH 30.7 (25.0-35.0) pg MCHC 32.9 (31.0-37.0) g/dL RDW 13.3 (11.5-15.5) % Plt Count 203 (150-450) k/uL MPV 7.6 Neutrophils % 70 % Lymphocytes % 23 % Monocytes % 4 % Eosinophils % 2 % Basophils % 0 % Neutrophils # 5.7 (1.3-7.7) k/uL Lymphocytes # 1.8 (1.0-4.8) k/uL Monocytes # 0.3 (0-1.0) k/uL Eosinophils # 0.1 (0-0.7) k/uL Basophils # 0.0 (0-0.2) k/uL PT (10.0-12.5) sec INR (<1.2) APTT (22.0-30.0) sec Sodium 140 (137-145) mmol/L Potassium 4.1 (3.5-5.1) mmol/L Chloride 104 (98-107) mmol/L Carbon Dioxide 25 (22-30) mmol/L Anion Gap 11 mmol/L BUN 18 (9-20) mg/dL Creatinine 0.77 (0.66-1.25) mg/dL Est GFR (CKD-EPI)AfAm >90 (>60 ml/min/1.73 sqM) Est GFR (CKD-EPI)NonAf >90 (>60 ml/min/1.73 sqM) Glucose 84 (74-99) mg/dL Plasma Lactic Acid Socrates 2.0 (0.7-2.0) mmol/L Calcium 9.6 (8.4-10.2) mg/dL Total Bilirubin 0.5 (0.2-1.3) mg/dL AST 37 (17-59) U/L ALT 82 H (4-49) U/L Alkaline Phosphatase 111 (38-126) U/L Total Protein 7.2 (6.3-8.2) g/dL Albumin 4.9 (3.5-5.0) g/dL Amylase 35 (30-110) U/L Lipase 25 (23-300) U/L Urine Color Urine Appearance (Clear) Urine pH (5.0-8.0) Ur Specific Coggon (1.001-1.035) Urine Protein (Negative) Urine Glucose (UA) (Negative) Urine Ketones (Negative) Urine Blood (Negative) Urine Nitrite (Negative) Urine Bilirubin (Negative) Urine Urobilinogen (<2.0) mg/dL Ur Leukocyte Esterase (Negative) 07/29/24 07/29/24 Range/Units 18:23 20:20 WBC (3.8-10.6) k/uL RBC (4.30-5.90) m/uL Hgb (13.0-17.5) gm/dL Hct (39.0-53.0) % MCV (80.0-100.0) fL MCH (25.0-35.0) pg MCHC (31.0-37.0) g/dL RDW (11.5-15.5) % Plt Count (150-450) k/uL MPV Neutrophils % % Lymphocytes % % Monocytes % % Eosinophils % % Basophils % % Neutrophils # (1.3-7.7) k/uL Lymphocytes # (1.0-4.8) k/uL Monocytes # (0-1.0) k/uL Eosinophils # (0-0.7) k/uL Basophils # (0-0.2) k/uL PT 10.4 (10.0-12.5) sec INR 0.9 (<1.2) APTT 24.8 (22.0-30.0) sec Sodium (137-145) mmol/L Potassium (3.5-5.1) mmol/L Chloride (98-107) mmol/L Carbon Dioxide (22-30) mmol/L Anion Gap mmol/L BUN (9-20) mg/dL Creatinine (0.66-1.25) mg/dL Est GFR (CKD-EPI)AfAm (>60 ml/min/1.73 sqM) Est GFR (CKD-EPI)NonAf (>60 ml/min/1.73 sqM) Glucose (74-99) mg/dL Plasma Lactic Acid Socrates (0.7-2.0) mmol/L Calcium (8.4-10.2) mg/dL Total Bilirubin (0.2-1.3) mg/dL AST (17-59) U/L ALT (4-49) U/L Alkaline Phosphatase (38-126) U/L Total Protein (6.3-8.2) g/dL Albumin (3.5-5.0) g/dL Amylase (30-110) U/L Lipase (23-300) U/L Urine Color Colorless Urine Appearance Clear (Clear) Urine pH 7.0 (5.0-8.0) Ur Specific Coggon 1.034 (1.001-1.035) Urine Protein Negative (Negative) Urine Glucose (UA) Negative (Negative) Urine Ketones Negative (Negative) Urine Blood Negative (Negative) Urine Nitrite Negative (Negative) Urine Bilirubin Negative (Negative) Urine Urobilinogen <2.0 (<2.0) mg/dL Ur Leukocyte Esterase Negative (Negative) - Radiology Data Radiology results: report reviewed, image reviewed Disposition Clinical Impression: Chronic abdominal pain, Diarrhea Disposition: HOME SELF-CARE Condition: Stable Instructions (If sedation given, give patient instructions): Abdominal Pain (ED) Additional Instructions: Follow-up with GI. Return to the ER for any new or worsening concerns. Prescriptions: Loperamide HCl [Imodium A-D] 2 mg PO ONCE #30 tablet Is patient prescribed a controlled substance at d/c from ED?: No Referrals: Sumeet Mejias III, MD [Primary Care Provider] - 1-2 days Time of Disposition: 20:36
[2024-07-29] MEDS: MORPHINE SULFATE 4 MG/ML SYRINGE IV STA (18:24)
[2024-07-29] MEDS: ONDANSETRON 4 MG/2 ML VIAL IVP STA (18:25)
[2024-07-29] MEDS: PANTOPRAZOLE 40 MG/10 ML VIAL IVP STA (18:26)
[2024-07-29] MEDS: KETOROLAC 15 MG/ML 1 ML VIAL IVP STA (18:26)
[2024-07-29] MEDS: SODIUM CHLORIDE 0.9% 1,000 ML IV STA (18:32)
[2024-07-29 18:57] LABS: Basophils % (A) 0 %; Eosinophils # (A) 0.1 k/uL (0-0.7); Eosinophils % (A) 2 %; HGB 16.1 gm/dL (13.0-17.5); Lymphocytes # (A) 1.8 k/uL (1.0-4.8); Lymphocytes % (A) 23 %; MCH 30.7 pg (25.0-35.0); MCHC 32.9 g/dL (31.0-37.0); MCV 93.1 fL (80.0-100.0); Mean Platelet Volume 7.6; Monocytes # (A) 0.3 k/uL (0-1.0); Monocytes % (A) 4 %; Neutrophils # (A) 5.7 k/uL (1.3-7.7); Neutrophils % (A) 70 %; Platelet Count 203 k/uL (150-450); RBC 5.26 m/uL (4.30-5.90); RDW 13.3 % (11.5-15.5); WBC 8.1 k/uL (3.8-10.6)
[2024-07-29 19:05] LABS: INR 0.9 (<1.2); Partial Thromboplastin Time 24.8 sec (22.0-30.0); Prothrombin Time 10.4 sec (10.0-12.5)
[2024-07-29 19:14] LABS: ALT 82 U/L (4-49); AST 37 U/L (17-59); African American GFR (CKD) >90 (>60 ml/min/1.73 sqM); Albumin 4.9 g/dL (3.5-5.0); Alkaline Phosphatase 111 U/L (38-126); Amylase 35 U/L (30-110); Anion Gap 11 mmol/L; Blood Urea Nitrogen 18 mg/dL (9-20); Calcium 9.6 mg/dL (8.4-10.2); Carbon Dioxide 25 mmol/L (22-30); Chloride 104 mmol/L (98-107); Glucose 84 mg/dL (74-99); Lipase 25 U/L (23-300); Non-African American GFR(CKD) >90 (>60 ml/min/1.73 sqM); Potassium 4.1 mmol/L (3.5-5.1); Sodium 140 mmol/L (137-145); Total Bilirubin 0.5 mg/dL (0.2-1.3); Total Protein 7.2 g/dL (6.3-8.2)
--- NOTE | 2024-07-29 20:00 | CT ---
EXAMINATION TYPE: CT abdomen pelvis w con DATE OF EXAM: 07/29/2024 7:54 PM COMPARISON: Multiple prior CT abdomen/pelvis studies, most recently dated 06/29/2024. CLINICAL INDICATION: Male, 34 years old with history of abd pain and diarrhea; abd pain and diarrhea, hx of IBS TECHNIQUE: Axial CT abdomen pelvis w con;Sagittal and coronal reformats were created on a separate w orkstation. Contrast used:100 mL of Isovue 300 with IV Contrast, (none if empty) Oral contrast used: without Oral Contrast (none if empty) CT DLP: 975.7 mGycm, Automated exposure control for dose reduction was used. FINDINGS: LOWER CHEST: Unremarkable ABDOMEN LIVER: Unremarkable GALLBLADDER AND BILE DUCTS: Unremarkable. PANCREAS: Unremarkable. SPLEEN: Unremarkable. ADRENAL GLANDS: Unremarkable. KIDNEYS AND URETERS: No evidence of hydronephrosis or renal calculus. The ureters are unremarkable. PELVIS BLADDER: No evidence for wall thickening or mass given limitations of exam. REPRODUCTIVE: Unremarkable. ABDOMEN & PELVIS STOMACH AND BOWEL: Stomach and duodenum are unremarkable No evidence of bowel obstruction. Hernia. Ap pendix unremarkable. PERITONEUM/RETROPERITONEUM: No evidence of pneumoperitoneum or free fluid. VASCULATURE: No evidence of aortic aneurysm. MUSCULOSKELETAL: No acute osseous abnormalities LYMPH NODES: No gross evidence for lymphadenopathy. SOFT TISSUE/ABDOMINAL WALL: Unremarkable IMPRESSION: No acute abnormality in the abdomen/pelvis. [facility], , 07/29/2024 7:58 PM
[2024-07-29] MEDS: HYDROmorphone 1 MG/ML 1 ML SYRINGE IVP STA (20:01)
[2024-07-29 20:29] LABS: Appearance,Urine Clear (Clear); Bilirubin,Urine Negative (Negative); Blood,Urine Negative (Negative); Color,Urine Colorless; Glucose,Urine (UA) Negative (Negative); Ketones,Urine Negative (Negative); Leukocyte Esterase,Urine Negative (Negative); Nitrite,Urine Negative (Negative); Protein,Urine Negative (Negative); Specific Gravity,Urine 1.034 (1.001-1.035); Urobilinogen,Urine <2.0 mg/dL (<2.0)
[2024-07-29 21:02] VITALS: BP 108/69; PULSE 78; RESP 20
== END 2024-07-29 21:02 | disposition home or self-care (01) ==
LOC: EC 16:52
DX: R10.9 Unspecified abdominal pain (principal); R19.7 Diarrhea, unspecified; K58.9 Irritable bowel syndrome, unspecified; Z87.891 Personal history of nicotine dependence; Z88.6 Allergy status to analgesic agent; Z88.8 Allergy status to other drugs, medicaments and biological substances; Z91.048 Other nonmedicinal substance allergy status; Z90.89 Acquired absence of other organs
CPT/HCPCS: 99285; 96375 ×2; 96374; 96361; 36415; 80053; 82150; 83605; 83690; 85025; 85610; 85730; 81003; 74177; J2270; J1171; Q9967; J2470

== ENCOUNTER 2024-07-30 21:39 | Emergency (ER) | payer OTHER ==
[2024-07-30 21:54] VITALS: BP 127/87; PULSE 106; RESP 22; TEMP 99
--- NOTE | 2024-07-30 22:12 | ED ---
Abdominal Pain HPI - General Chief Complaint: Abdominal Pain Stated Complaint: ABD Pain Time Seen by Provider: 07/30/24 21:54 Source: patient, RN notes reviewed Mode of arrival: wheelchair Limitations: no limitations - History of Present Illness Initial Comments: This is a 34-year-old male with history of IBS presenting with abdominal pain (06/15) x 4 days. Patient endorses intermittent, sharp right lower quadrant pain. Patient states his abdomen is "blowing up like a balloon". Patient endorses frequent flatus and diarrhea without hematochezia or melena. Also endorses some nausea without vomiting. Endorses being seen in ER the past 3 days, receiving both a KUB and abdominal CT with no acute/concerning findings. Patient states previous administrations of morphine and Dilaudid provided pain relief. Patient denies fever, chills, chest pain, dyspnea, vomiting, dizziness. MD Complaint: abdominal pain Onset/Timin -: days(s) Location: RLQ Radiation: none Migration to: no migration Severity scale (1-10): 10 Quality: sharp Consistency: intermittent Improves With: bowel movement Context: other (History of IBS) Associated Symptoms: nausea, diarrhea - Related Data Home Medications Medication Instructions Recorded Confirmed Nicotine 21Mg/24Hr Patch [Habitrol] 1 patch TRANSDERM HS 07/18/24 07/19/24 Previous Rx's Medication Instructions Recorded ALPRAZolam [Xanax] 0.5 mg PO TID PRN #9 tablet 07/18/24 Nicotine 14Mg/24Hr Patch [Habitrol] 1 patch TRANSDERM DAILY patch 07/21/24 Omeprazole [PriLOSEC] 20 mg PO AC-BRKFST 30 Days #30 cap 07/21/24 Ziprasidone [Geodon] 20 mg PO 1700 30 Days #30 cap 07/21/24 fluvoxaMINE MALEATE 50 mg PO BID 30 Days #60 tab 07/21/24 lamoTRIgine [LaMICtal] 100 mg PO DAILY 30 Days #30 tab 07/21/24 Loperamide HCl [Imodium A-D] 2 mg PO ONCE #30 tablet 07/29/24 Simethicone [Gas-X] 125 mg PO QID #40 capsule 07/30/24 Allergies Allergy/AdvReac Type Severity Reaction Status Date / Time aripiprazole [From [facility]] Allergy Unknown Agitation Verified 07/30/24 21:40 cariprazine [From Vraylar] Allergy Unknown Agitation Verified 07/30/24 21:40 citalopram [From Celexa] Allergy Unknown Agitation Verified 07/30/24 21:40 divalproex sodium Allergy Unknown Agitation Verified 07/30/24 21:40 [From Depakote] paroxetine [From Paxil] Allergy Unknown Agitation Verified 07/30/24 21:40 sertraline [From Zoloft] Allergy Unknown Agitation Verified 07/30/24 21:40 phenobarbital AdvReac Severe Rapid Verified 07/30/24 21:40 Heart Rate zolpidem tartrate AdvReac Unknown Altered Verified 07/30/24 21:40 [From Ambien] Mental Status estropipate [From Ogen 2.5] AdvReac Twitching Verified 07/30/24 21:40 of Legs haloperidol [From Haldol] AdvReac Agitation Verified 07/30/24 21:40 ketorolac [From Toradol] AdvReac Unknown Verified 07/30/24 21:40 lorazepam [From Ativan] AdvReac Hallucinati Verified 07/30/24 21:40 ons methylprednisolone AdvReac Altered Verified 07/30/24 21:40 [From Solu-Medrol] Mental Status ondansetron [From Zofran] AdvReac Unknown Verified 07/30/24 21:40 Review of Systems ROS Statement: Those systems with pertinent positive or pertinent negative responses have been documented in the HPI. ROS Other: All systems not noted in ROS Statement are negative. 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 PT IS ABLE TO MAKE DECISIONS FOR HIMSELF History of Any Multi-Drug Resistant Organisms: None Reported Past Surgical History: Tonsillectomy Additional Past Surgical History / Comment(s): wisdom teeth removed. Past Anesthesia/Blood Transfusion Reactions: No Reported Reaction Additional Past Anesthesia/Blood Transfusion Reaction / Comment(s): NEVER HAD BLOOD TRANSFUSION Past Psychological History: ADD/ADHD, Anxiety, Bipolar, Depression, PTSD Smoking Status: Former smoker Past Alcohol Use History: None Reported Past Drug Use History: Marijuana - Past Family History Sister(s) Additional Family Medical History / Comment(s): He has one sister that is healthy. He also has a 4-year-old daughter that is healthy. Father Family Medical History: GERD/Reflux Additional Family Medical History / Comment(s): DAD HAS ALSO NEVER BEEN AN ALCOHOLIC-RARELY, RARELY DRINKS. Mother Family Medical History: Cancer Additional Family Medical History / Comment(s): MOM STATES SHE HAS NEVER BEEN AN ALCOHOLIC-MOM RARELY ,RARELY DRINKS. HX THYROID CANCER General Exam Limitations: no limitations General appearance: alert, in distress Head exam: Present: atraumatic, normocephalic, normal inspection Eye exam: Present: normal appearance, PERRL, EOMI. Absent: scleral icterus, conjunctival injection, periorbital swelling ENT exam: Present: normal exam, mucous membranes moist Neck exam: Present: normal inspection. Absent: tenderness, meningismus, lymphadenopathy Respiratory exam: Present: normal lung sounds bilaterally. Absent: respiratory distress, wheezes, rales, rhonchi, stridor Cardiovascular Exam: Present: regular rate, normal rhythm, normal heart sounds. Absent: systolic murmur, diastolic murmur, rubs, gallop, clicks GI/Abdominal exam: Present: soft, tenderness (Right lower quadrant and periumbilical tenderness and tympanic tenderness with voluntary guarding. Negative rebound tenderness), guarding, normal bowel sounds. Absent: distended, rebound, rigid Extremities exam: Present: normal inspection, full ROM, normal capillary refill. Absent: tenderness, pedal edema, joint swelling, calf tenderness Back exam: Present: normal inspection Neurological exam: Present: alert, oriented X3, CN II-XII intact Psychiatric exam: Present: normal affect, normal mood Skin exam: Present: warm, dry, intact, normal color. Absent: rash Course Vital Signs 07/30/24 21:40 Temperature 99.0 F Pulse Rate 106 H Respiratory 22 Rate Blood Pressure 127/87 O2 Sat by Pulse 98 Oximetry Medical Decision Making - Medical Decision Making Was pt. sent in by a medical professional or institution (, PA, ENDOSCOPY SUPPORT SPECIALIST, urgent care, hospital, or assisted...) When possible be specific @ -No Did you speak to anyone other than the patient for history (EMS, parent, family, police, friend...)? What history was obtained from this source @ -No Did you review nursing and triage notes (agree or disagree)? Why? @ -I reviewed and agree with nursing and triage notes Were old charts reviewed (outside hosp., previous admission, EMS record, old EKG, old radiological studies, urgent care reports/EKG's, assisted records)? Report findings @ -No old charts were reviewed Differential Diagnosis (chest pain, altered mental status, abdominal pain women, abdominal pain men, vaginal bleeding, weakness, fever, dyspnea, syncope, headache, dizziness, GI bleed, back pain, seizure, CVA, palpatations, mental health, musculoskeletal)? @ -Differential Abdominal Pain Men: Appendicitis, cholecystitis, diverticulosis, ischemic bowel, pancreatitis, hepatitis, UTI, gastroenteritis, AAA, incarcerated hernia, bowel obstruction, constipation, inflammatory bowel, hepatitis, peptic ulcer disease, splenic infarction, perforated viscus, testicular torsion, this is not meant to be an all-inclusive list EKG interpreted by me (3pts min.). @ -Not done X-rays interpreted by me (1pt min.). @ -KUB shows persistent nonobstructive bowel gas pattern. CT interpreted by me (1pt min.). @ -None done U/S interpreted by me (1pt. min.). @ -None done What testing was considered but not performed or refused? (CT, X-rays, U/S, labs)? Why? @ -None What meds were considered but not given or refused? Why? @ -None Did you discuss the management of the patient with other professionals (professionals i.e. , PA, ENDOSCOPY SUPPORT SPECIALIST, lab, RT, psych nurse, rn social work, paper box cutter, teacher, philanthropy officer, transplant case manager)? Give summary @ -No Was smoking cessation discussed for >3mins.? @ -No Was critical care preformed (if so, how long)? @ -No Were there social determinants of health that impacted care today? How? (Homelessness, low income, unemployed, alcoholism, drug addiction, transportation, low edu. Level, literacy, decrease access to med. care, shelter, rehab)? @ -No Was there de-escalation of care discussed even if they declined (Discuss DNR or withdrawal of care, Hospice)? DNR status @ -No What co-morbidities impacted this encounter? (DM, HTN, Smoking, COPD, CAD, Ca ncer, CVA, ARF, Chemo, Hep., AIDS, mental health diagnosis, sleep apnea, morbid obesity)? @ -IBS Was patient admitted / discharged? Hospital course, mention meds given and route, prescriptions, significant lab abnormalities, going to OR and other pertinent info. @ -KUB shows persistent nonobstructive bowel gas pattern. Patient provided IV normal saline and Reglan, as well as p.o. Bentyl and simethicone for IBS/flatus symptoms. Despite this, patient states pain still persists. IV morphine provided and patient discharged. P.o. simethicone sent to pharmacy. Advised follow-up with PCP/gastroenterology for ongoing GI pain/symptoms. Undiagnosed new problem with uncertain prognosis? @ -No Drug Therapy requiring intensive monitoring for toxicity (Heparin, Nitro, Insulin, Cardizem)? @ -No Were any procedures done? @ -No Diagnosis/symptom? @ -IBS exacerbation Acute, or Chronic, or Acute on Chronic? @ -Acute on chronic Uncomplicated (without systemic symptoms) or Complicated (systemic symptoms)? @ -Uncomplicated Side effects of treatment? @ -No Exacerbation, Progression, or Severe Exacerbation? @ -Exacerbation Poses a threat to life or bodily function? How? (Chest pain, USA, SD, pneumonia, PE, COPD, DKA, ARF, appy, cholecystitis, CVA, Diverticulitis, Homicidal, Chambers icidal, threat to staff... and all critical care pts) @ -No - Lab Data Result diagrams: 07/30/24 22:42 07/30/24 22:42 Lab Results 07/30/24 07/30/24 07/30/24 Range/Units 22:42 22:42 22:42 WBC 9.7 (3.8-10.6) k/uL RBC 5.21 (4.30-5.90) m/uL Hgb 16.0 (13.0-17.5) gm/dL Hct 48.4 (39.0-53.0) % MCV 92.8 (80.0-100.0) fL MCH 30.8 (25.0-35.0) pg MCHC 33.2 (31.0-37.0) g/dL RDW 13.7 (11.5-15.5) % Plt Count 217 (150-450) k/uL MPV 8.2 Neutrophils % 68 % Lymphocytes % 24 % Monocytes % 4 % Eosinophils % 2 % Basophils % 1 % Neutrophils # 6.6 (1.3-7.7) k/uL Lymphocytes # 2.4 (1.0-4.8) k/uL Monocytes # 0.4 (0-1.0) k/uL Eosinophils # 0.2 (0-0.7) k/uL Basophils # 0.1 (0-0.2) k/uL Sodium 139 (137-145) mmol/L Potassium 4.2 (3.5-5.1) mmol/L Chloride 107 (98-107) mmol/L Carbon Dioxide 25 (22-30) mmol/L Anion Gap 7 mmol/L BUN 15 (9-20) mg/dL Creatinine 0.85 (0.66-1.25) mg/dL Est GFR (CKD-EPI)AfAm >90 (>60 ml/min/1.73 sqM) Est GFR (CKD-EPI)NonAf >90 (>60 ml/min/1.73 sqM) Glucose 105 H (74-99) mg/dL Plasma Lactic Acid Socrates 1.7 (0.7-2.0) mmol/L Calcium 9.7 (8.4-10.2) mg/dL Total Bilirubin 1.4 H (0.2-1.3) mg/dL AST 41 (17-59) U/L ALT 67 H (4-49) U/L Alkaline Phosphatase 95 (38-126) U/L Total Protein 7.8 (6.3-8.2) g/dL Albumin 5.2 H (3.5-5.0) g/dL Amylase 42 (30-110) U/L Lipase 62 (23-300) U/L Disposition Clinical Impression: Inflammatory bowel disease, Flatulence/gas pain/belching Disposition: HOME SELF-CARE Condition: Good Instructions (If sedation given, give patient instructions): Irritable Bowel Syndrome (ED) Prescriptions: Simethicone [Gas-X] 125 mg PO QID #40 capsule Is patient prescribed a controlled substance at d/c from ED?: No Referrals: Sumeet Mejias III, MD [Primary Care Provider] - 1-2 days Time of Disposition: 23:11
--- NOTE | 2024-07-30 22:20 | XR ---
EXAMINATION TYPE: XR KUB DATE OF EXAM: 07/30/2024 10:13 PM CLINICAL HISTORY: Abdominal pain and nausea. TECHNIQUE: Two Upright KUB images of the abdomen are obtained. COMPARISON: CT abdomen and pelvis one day earlier FINDINGS: Scattered gas is seen in non-distended small bowel and large bowel loops. A few scattered a ir-fluid levels which is nonspecific finding. Lung bases are clear. No free air is seen. No suspiciou s calcifications. Osseous structures are intact. IMPRESSION: Persistent nonobstructive bowel gas pattern. [facility], , 07/30/2024 10:17 PM
[2024-07-30] MEDS: METOCLOPRAMIDE 5 MG/ML 2 ML VIAL IVP STA (22:39)
[2024-07-30] MEDS: DICYCLOMINE 10 MG CAP PO STA (22:39)
[2024-07-30] MEDS: SIMETHICONE 80 MG CHEWABLE PO STA (22:39)
[2024-07-30] MEDS: SODIUM CHLORIDE 0.9% 1,000 ML IV STA (22:39)
[2024-07-30 22:53] LABS: Basophils # (A) 0.1 k/uL (0-0.2); Basophils % (A) 1 %; Eosinophils # (A) 0.2 k/uL (0-0.7); Eosinophils % (A) 2 %; HCT 48.4 % (39.0-53.0); Lymphocytes # (A) 2.4 k/uL (1.0-4.8); Lymphocytes % (A) 24 %; MCH 30.8 pg (25.0-35.0); MCHC 33.2 g/dL (31.0-37.0); MCV 92.8 fL (80.0-100.0); Mean Platelet Volume 8.2; Monocytes # (A) 0.4 k/uL (0-1.0); Monocytes % (A) 4 %; Neutrophils # (A) 6.6 k/uL (1.3-7.7); Neutrophils % (A) 68 %; Platelet Count 217 k/uL (150-450); RBC 5.21 m/uL (4.30-5.90); RDW 13.7 % (11.5-15.5); WBC 9.7 k/uL (3.8-10.6)
[2024-07-30 23:05] LABS: ALT 67 U/L (4-49); AST 41 U/L (17-59); African American GFR (CKD) >90 (>60 ml/min/1.73 sqM); Albumin 5.2 g/dL (3.5-5.0); Alkaline Phosphatase 95 U/L (38-126); Amylase 42 U/L (30-110); Anion Gap 7 mmol/L; Blood Urea Nitrogen 15 mg/dL (9-20); Calcium 9.7 mg/dL (8.4-10.2); Carbon Dioxide 25 mmol/L (22-30); Chloride 107 mmol/L (98-107); Glucose 105 mg/dL (74-99); Lipase 62 U/L (23-300); Non-African American GFR(CKD) >90 (>60 ml/min/1.73 sqM); Sodium 139 mmol/L (137-145); Total Bilirubin 1.4 mg/dL (0.2-1.3); Total Protein 7.8 g/dL (6.3-8.2)
[2024-07-30 23:06] LABS: Potassium 4.2 mmol/L (3.5-5.1)
[2024-07-30] MEDS: MORPHINE SULFATE 4 MG/ML SYRINGE IVP STA (23:31)
== END 2024-07-31 00:05 | disposition home or self-care (01) ==
LOC: EC 21:39
DX: K58.9 Irritable bowel syndrome, unspecified (principal); R14.3 Flatulence; Z87.891 Personal history of nicotine dependence; Z88.8 Allergy status to other drugs, medicaments and biological substances
CPT/HCPCS: 36415; 80053; 82150; 83605; 83690; 85025; 74018; 99284; 96374; 96375; 96361; J2270; J2765

== ENCOUNTER 2024-08-04 00:41 | Emergency (ER) | payer OTHER ==
[2024-08-04 00:46] VITALS: TEMP 99
--- NOTE | 2024-08-04 01:36 | ED ---
Abdominal Pain HPI - General Chief Complaint: Abdominal Pain Stated Complaint: Abd pain, IBS Time Seen by Provider: 08/04/24 01:33 Source: patient Mode of arrival: wheelchair - History of Present Illness Initial Comments: This patient is a 34-year-old man with history of intermittent abdominal pains, presents with a flareup of his pain. Patient mainly indicates across the upper portion of the abdomen but states that the pain is really throughout the abdomen at different times. He has not noted worsening or relieving factors. He has not noted change in urination or bowel movements. No pain to the scrotum or testicles. MD Complaint: abdominal pain Onset/Timin -: days(s) Location: diffuse Severity: moderate Quality: other (Not able to characterize) Consistency: constant Improves With: nothing Worsens With: nothing Associated Symptoms: denies other symptoms - Related Data Home Medications Medication Instructions Recorded Confirmed Nicotine 21Mg/24Hr Patch [Habitrol] 1 patch TRANSDERM HS 07/18/24 07/19/24 Previous Rx's Medication Instructions Recorded ALPRAZolam [Xanax] 0.5 mg PO TID PRN #9 tablet 07/18/24 Nicotine 14Mg/24Hr Patch [Habitrol] 1 patch TRANSDERM DAILY patch 07/21/24 Omeprazole [PriLOSEC] 20 mg PO AC-BRKFST 30 Days #30 cap 07/21/24 Ziprasidone [Geodon] 20 mg PO 1700 30 Days #30 cap 07/21/24 fluvoxaMINE MALEATE 50 mg PO BID 30 Days #60 tab 07/21/24 lamoTRIgine [LaMICtal] 100 mg PO DAILY 30 Days #30 tab 07/21/24 Loperamide HCl [Imodium A-D] 2 mg PO ONCE #30 tablet 07/29/24 Simethicone [Gas-X] 125 mg PO QID #40 capsule 07/30/24 Allergies Allergy/AdvReac Type Severity Reaction Status Date / Time aripiprazole [From Abilify] Allergy Unknown Agitation Verified 08/06/24 12:16 cariprazine [From Vraylar] Allergy Unknown Agitation Verified 08/06/24 12:16 citalopram [From Celexa] Allergy Unknown Agitation Verified 08/06/24 12:16 divalproex sodium Allergy Unknown Agitation Verified 08/06/24 12:16 [From Depakote] paroxetine [From Paxil] Allergy Unknown Agitation Verified 08/06/24 12:16 sertraline [From Zoloft] Allergy Unknown Agitation Verified 08/06/24 12:16 phenobarbital AdvReac Severe Rapid Verified 08/06/24 12:16 Heart Rate zolpidem tartrate AdvReac Unknown Altered Verified 08/06/24 12:16 [From Ambien] Mental Status estropipate [From Ogen 2.5] AdvReac Twitching Verified 08/06/24 12:16 of Legs haloperidol [From Haldol] AdvReac Agitation Verified 08/06/24 12:16 ketorolac [From Toradol] AdvReac Unknown Verified 08/06/24 12:16 lorazepam [From Ativan] AdvReac Hallucinati Verified 08/06/24 12:16 ons methylprednisolone AdvReac Altered Verified 08/06/24 12:16 [From Solu-Medrol] Mental Status ondansetron [From Zofran] AdvReac Unknown Verified 08/06/24 12:16 Review of Systems ROS Statement: Those systems with pertinent positive or pertinent negative responses have been documented in the HPI. ROS Other: All systems not noted in ROS Statement are negative. Constitutional: Denies: fever, chills, weakness Respiratory: Denies: cough, dyspnea Cardiovascular: Denies: chest pain, palpitations, edema, syncope Gastrointestinal: Reports: abdominal pain. 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 PT IS ABLE TO MAKE DECISIONS FOR HIMSELF History of Any Multi-Drug Resistant Organisms: None Reported Past Surgical History: Tonsillectomy Additional Past Surgical History / Comment(s): wisdom teeth removed. Past Anesthesia/Blood Transfusion Reactions: No Reported Reaction Additional Past Anesthesia/Blood Transfusion Reaction / Comment(s): NEVER HAD BLOOD TRANSFUSION Past Psychological History: ADD/ADHD, Anxiety, Bipolar, Depression, PTSD Smoking Status: Former smoker Past Alcohol Use History: None Reported Past Drug Use History: Marijuana - Past Family History Sister(s) Additional Family Medical History / Comment(s): He has one sister that is healthy. He also has a 4-year-old daughter that is healthy. Father Family Medical History: GERD/Reflux Additional Family Medical History / Comment(s): DAD HAS ALSO NEVER BEEN AN ALCOHOLIC-RARELY, RARELY DRINKS. Mother Family Medical History: Cancer Additional Family Medical History / Comment(s): MOM STATES SHE HAS NEVER BEEN AN ALCOHOLIC-MOM RARELY ,RARELY DRINKS. HX THYROID CANCER General Exam Limitations: no limitations General appearance: alert, in no apparent distress Head exam: Present: atraumatic, normocephalic Eye exam: Present: normal appearance. Absent: scleral icterus, conjunctival injection ENT exam: Present: normal oropharynx Neck exam: Present: normal inspection Respiratory exam: Present: normal lung sounds bilaterally. Absent: respiratory distress, wheezes, rales, rhonchi, stridor, accessory muscle use Cardiovascular Exam: Present: regular rate, normal rhythm, normal heart sounds. Absent: systolic murmur, diastolic murmur, rubs, gallop GI/Abdominal exam: Present: soft, tenderness. Absent: distended, guarding, re bound, rigid, mass, pulsatile mass, hernia Extremities exam: Present: normal inspection, normal capillary refill. Absent: pedal edema, calf tenderness Back exam: Present: normal inspection. Absent: CVA tenderness (R), CVA tenderness (L) Neurological exam: Present: alert Skin exam: Present: warm, dry, intact, normal color. Absent: rash Course Vital Signs 08/04/24 08/04/24 08/04/24 00:42 02:38 04:08 Temperature 99 F Pulse Rate 116 H 90 65 Respiratory 18 17 16 Rate Blood Pressure 135/67 128/77 111/72 O2 Sat by Pulse 97 98 95 Oximetry Medical Decision Making - Medical Decision Making The patient had CT scan of the abdomen that I interpreted as negative for free air, obstruction, or other acute surgical condition Was pt. sent in by a medical professional or institution (, PA, MACHINE LEAD BURNER, urgent care, hospital, or long term...) When possible be specific @ -[No] Did you speak to anyone other than the patient for history (EMS, parent, family, police, friend...)? What history was obtained from this source @ -[No] Did you review nursing and triage notes (agree or disagree)? Why? @ -[I reviewed and agree with nursing and triage notes] Were old charts reviewed (outside hosp., previous admission, EMS record, old EKG, old radiological studies, urgent care reports/EKG's, long term records)? Report findings @ -[No old charts were reviewed] Differential Diagnosis (chest pain, altered mental status, abdominal pain women, abdominal pain men, vaginal bleeding, weakness, fever, dyspnea, syncope, headache, dizziness, GI bleed, back pain, seizure, CVA, palpatations, mental health, musculoskeletal)? @ -[Differential Abdominal Pain Men: Appendicitis, cholecystitis, diverticulosis, ischemic bowel, pancreatitis, hepatitis, UTI, gastroenteritis, AAA, incarcerated hernia, bowel obstruction, constipation, inflammatory bowel, hepatitis, peptic ulcer disease, splenic infarction, perforated viscus, testicular torsion, this is not meant to be an all-inclusive list EKG interpreted by me (3pts min.). @ -[As above] X-rays interpreted by me (1pt min.). @ -[None done] CT interpreted by me (1pt min.). @ -[I interpreted as above U/S interpreted by me (1pt. min.). @ -[None done] What testing was considered but not performed or refused? (CT, X-rays, U/S, labs)? Why? @ -[None] What meds were considered but not given or refused? Why? @ -[None] Did you discuss the management of the patient with other professionals (professionals i.e. , PA, MACHINE LEAD BURNER, lab, RT, psych nurse, outreach and education social worker, garage attendant, teacher, training and development officer, case loader operator)? Give summary @ -[No] Was smoking cessation discussed for >3mins.? @ -[No] Was critical care preformed (if so, how long)? @ -[No] Were there social determinants of health that impacted care today? How? (Homelessness, low income, unemployed, alcoholism, drug addiction, transportation, low edu. Level, literacy, decrease access to med. care, penitentiary, rehab)? @ -[No] Was there de-escalation of care discussed even if they declined (Discuss DNR or withdrawal of care, Hospice)? DNR status @ -[No] What co-morbidities impacted this encounter? (DM, HTN, Smoking, COPD, CAD, Cancer, CVA, ARF, Chemo, Hep., AIDS, mental health diagnosis, sleep apnea, morbid obesity)? @ -[None] Was patient admitted / discharged? Hospital course, mention meds given and route, prescriptions, significant lab abnormalities, going to OR and other pertinent info. @ -[Patient is 34-year-old man with history of intermittent abdominal pains, pr esenting with a flareup of same. The exam reveals only some mild upper abdominal tenderness. No peritoneal signs. The patient's CT scan not revealing etiology. Patient at this point appears stable to have further evaluation and treatment as outpatient. Discussed return parameters. Undiagnosed new problem with uncertain prognosis? @ -[No] Drug Therapy requiring intensive monitoring for toxicity (Heparin, Nitro, Insulin, Cardizem)? @ -[No] Were any procedures done? @ -[No] Diagnosis/symptom? @ -[Acute exacerbation of chronic abdominal pain Acute, or Chronic, or Acute on Chronic? @ -[Acute on chronic Uncomplicated (without systemic symptoms) or Complicated (systemic symptoms)? @ -[default] Side effects of treatment? @ -[No] Exacerbation, Progression, or Severe Exacerbation? @ -[No] Poses a threat to life or bodily function? How? (Chest pain, USA, MS, pneumonia, PE, COPD, DKA, ARF, appy, cholecystitis, CVA, Diverticulitis, Homicidal, Suicidal, threat to staff... and all critical care pts) @ -[No] - Lab Data Result diagrams: 08/04/24 01:15 08/04/24 01:15 Lab Results 08/04/24 08/04/24 Range/Units 01:15 01:15 WBC 8.6 (3.8-10.6) k/uL RBC 5.71 (4.30-5.90) m/uL Hgb 18.2 H (13.0-17.5) gm/dL Hct 53.2 H (39.0-53.0) % MCV 93.1 (80.0-100.0) fL MCH 31.8 (25.0-35.0) pg MCHC 34.2 (31.0-37.0) g/dL RDW 13.2 (11.5-15.5) % Plt Count 224 (150-450) k/uL MPV 7.7 Neutrophils % 60 % Lymphocytes % 33 % Monocytes % 4 % Eosinophils % 1 % Basophils % 0 % Neutrophils # 5.2 (1.3-7.7) k/uL Lymphocytes # 2.8 (1.0-4.8) k/uL Monocytes # 0.3 (0-1.0) k/uL Eosinophils # 0.1 (0-0.7) k/uL Basophils # 0.0 (0-0.2) k/uL Sodium 140 (137-145) mmol/L Potassium 3.8 (3.5-5.1) mmol/L Chloride 107 (98-107) mmol/L Carbon Dioxide 22 (22-30) mmol/L Anion Gap 11 mmol/L BUN 16 (9-20) mg/dL Creatinine 0.91 (0.66-1.25) mg/dL Est GFR (CKD-EPI)AfAm >90 (>60 ml/min/1.73 sqM) Est GFR (CKD-EPI)NonAf >90 (>60 ml/min/1.73 sqM) Glucose 84 (74-99) mg/dL Calcium 10.4 H (8.4-10.2) mg/dL Total Bilirubin 1.6 H (0.2-1.3) mg/dL AST 24 (17-59) U/L ALT 42 (4-49) U/L Alkaline Phosphatase 128 H (38-126) U/L C-Reactive Protein <0.5 (<1.0) mg/dL Total Protein 8.6 H (6.3-8.2) g/dL Albumin 5.6 H (3.5-5.0) g/dL Amylase 43 (30-110) U/L Lipase 20 L (23-300) U/L - EKG Data -: EKG Interpreted by [facility] EKG shows normal: sinus rhythm, axis (Normal), intervals (Normal), QRS complexes (Incomplete right bundle branch block pattern), ST-T waves (Normal) Rate: tachycardia (Rate 122 bpm) Disposition Clinical Impression: Chronic abdominal pain Disposition: HOME SELF-CARE Condition: Good Instructions (If sedation given, give patient instructions): Abdominal Pain (ED) Is patient prescribed a controlled substance at d/c from ED?: No Referrals: Sumeet Mejias III, MD [Primary Care Provider] - 1-2 days
[2024-08-04 01:54] LABS: Basophils % (A) 0 %; Eosinophils # (A) 0.1 k/uL (0-0.7); Eosinophils % (A) 1 %; HCT 53.2 % (39.0-53.0); HGB 18.2 gm/dL (13.0-17.5); Lymphocytes # (A) 2.8 k/uL (1.0-4.8); Lymphocytes % (A) 33 %; MCH 31.8 pg (25.0-35.0); MCHC 34.2 g/dL (31.0-37.0); MCV 93.1 fL (80.0-100.0); Mean Platelet Volume 7.7; Monocytes # (A) 0.3 k/uL (0-1.0); Monocytes % (A) 4 %; Neutrophils # (A) 5.2 k/uL (1.3-7.7); Neutrophils % (A) 60 %; Platelet Count 224 k/uL (150-450); RBC 5.71 m/uL (4.30-5.90); RDW 13.2 % (11.5-15.5); WBC 8.6 k/uL (3.8-10.6)
--- NOTE | 2024-08-04 02:06 | CT ---
EXAM: CT Abdomen and Pelvis Without Intravenous Contrast CLINICAL HISTORY: RLQ pain/tenderness TECHNIQUE: Axial computed tomography images of the abdomen and pelvis without intravenous contrast. CTDI is 7.6 mGy and DLP is 447.1 mGy-cm. This CT exam was performed using one or more of the following dose reduction techniques: automated exposure control, adjustment of the mA and/or kV according to patient size, and/or use of iterative reconstruction technique. Coronal and sagittal reformatted images were created and reviewed. 450 images COMPARISON: No relevant prior studies available. FINDINGS: Lung bases: Unremarkable. No mass. No consolidation. ABDOMEN: Liver: Unremarkable. Gallbladder and bile ducts: Unremarkable. No calcified stones. No ductal dilation. Pancreas: Unremarkable. No ductal dilation. Spleen: Unremarkable. No splenomegaly. Adrenals: Unremarkable. No mass. Kidneys and ureters: Unremarkable. No obstructing stones. No hydronephrosis. Stomach and bowel: Unremarkable. No obstruction. No mucosal thickening. PELVIS: Appendix: Normal appendix. Bladder: Unremarkable. No stones. Reproductive: Unremarkable as visualized. ABDOMEN and PELVIS: Intraperitoneal space: Unremarkable. No free air. No significant fluid collection. Bones/joints: Mild lower lumbar sclerosis convexed to the left. Soft tissues: Unremarkable. Vasculature: Unremarkable. No abdominal aortic aneurysm. Lymph nodes: Unremarkable. No enlarged lymph nodes. IMPRESSION: No acute findings in the abdomen or pelvis.
[2024-08-04] MEDS: SODIUM CHLORIDE 0.9% 500 ML 500 ML IV STA (02:07)
[2024-08-04 02:15] LABS: ALT 42 U/L (4-49); AST 24 U/L (17-59); African American GFR (CKD) >90 (>60 ml/min/1.73 sqM); Albumin 5.6 g/dL (3.5-5.0); Alkaline Phosphatase 128 U/L (38-126); Amylase 43 U/L (30-110); Anion Gap 11 mmol/L; Blood Urea Nitrogen 16 mg/dL (9-20); C Reactive Protein <0.5 mg/dL (<1.0); Calcium 10.4 mg/dL (8.4-10.2); Carbon Dioxide 22 mmol/L (22-30); Chloride 107 mmol/L (98-107); Glucose 84 mg/dL (74-99); Lipase 20 U/L (23-300); Non-African American GFR(CKD) >90 (>60 ml/min/1.73 sqM); Potassium 3.8 mmol/L (3.5-5.1); Sodium 140 mmol/L (137-145); Total Bilirubin 1.6 mg/dL (0.2-1.3); Total Protein 8.6 g/dL (6.3-8.2)
[2024-08-04] MEDS: KETOROLAC 15 MG/ML 1 ML VIAL IVP STA (02:31)
[2024-08-04] MEDS: MORPHINE SULFATE 4 MG/ML SYRINGE IV STA (02:37)
[2024-08-04 04:10] VITALS: BP 111/72; PULSE 65; RESP 16
== END 2024-08-04 04:09 | disposition home or self-care (01) ==
LOC: EC 00:41
DX: G89.29 Other chronic pain (principal); R10.9 Unspecified abdominal pain; I45.10 Unspecified right bundle-branch block; R00.0 Tachycardia, unspecified; Z88.8 Allergy status to other drugs, medicaments and biological substances; Z87.891 Personal history of nicotine dependence
CPT/HCPCS: 36415; 80053; 82150; 83690; 85025; 86140; 74176; 99284; 96374; 96361 ×2; J2270

== ENCOUNTER 2024-08-06 03:11 | Emergency (ER) | payer OTHER ==
[2024-08-06] MEDS ORDERED: IOPAMIDOL CONTRAST (ORAL USE) VIAL PO PRN (03:43)
--- NOTE | 2024-08-06 03:53 | ED ---
General Adult HPI - General Chief complaint: Abdominal Pain Stated complaint: Abd Pain Time Seen by Provider: 08/06/24 03:29 Source: patient Mode of arrival: wheelchair Limitations: no limitations - History of Present Illness Initial comments: 34-year-old gentleman well-known to this emergency department with past medical history of OCD, multiple psychiatric diagnoses, IBS presenting for left lower quadrant abdominal pain. Patient was here recently and states that pain is similar and consistent since his visit approximately 2 days ago and with his u sual IBS pain. Tonight, after eating amborsia salad, turkey and green hooks casserole this evening the pain returning in the bilateral lower quadrants of his abdomen. Patient denies any vomiting endorses mild nausea. Denies black or bloody stools, had well-formed stool this morning. No diarrhea. Denies fevers at home, no prior abdominal surgeries. Denies dysuria or hematuria. Denies pain in his testicles. He was chest pain or shortness of breath. States morphine is the only thing that typically helps his pain. - Related Data Home Medications Medication Instructions Recorded Confirmed Nicotine 21Mg/24Hr Patch [Habitrol] 1 patch TRANSDERM HS 07/18/24 07/19/24 Previous Rx's Medication Instructions Recorded ALPRAZolam [Xanax] 0.5 mg PO TID PRN #9 tablet 07/18/24 Nicotine 14Mg/24Hr Patch [Habitrol] 1 patch TRANSDERM DAILY patch 07/21/24 Omeprazole [PriLOSEC] 20 mg PO AC-BRKFST 30 Days #30 cap 07/21/24 Ziprasidone [Geodon] 20 mg PO 1700 30 Days #30 cap 07/21/24 fluvoxaMINE MALEATE 50 mg PO BID 30 Days #60 tab 07/21/24 lamoTRIgine [LaMICtal] 100 mg PO DAILY 30 Days #30 tab 07/21/24 Loperamide HCl [Imodium A-D] 2 mg PO ONCE #30 tablet 07/29/24 Simethicone [Gas-X] 125 mg PO QID #40 capsule 07/30/24 Allergies Allergy/AdvReac Type Severity Reaction Status Date / Time aripiprazole [From Abilify] Allergy Unknown Agitation Verified 08/06/24 03:17 cariprazine [From Vraylar] Allergy Unknown Agitation Verified 08/06/24 03:17 citalopram [From Celexa] Allergy Unknown Agitation Verified 08/06/24 03:17 divalproex sodium Allergy Unknown Agitation Verified 08/06/24 03:17 [From Depakote] paroxetine [From Paxil] Allergy Unknown Agitation Verified 08/06/24 03:17 sertraline [From Zoloft] Allergy Unknown Agitation Verified 08/06/24 03:17 phenobarbital AdvReac Severe Rapid Verified 08/06/24 03:17 Heart Rate zolpidem tartrate AdvReac Unknown Altered Verified 08/06/24 03:17 [From Ambien] Mental Status estropipate [From Ogen 2.5] AdvReac Twitching Verified 08/06/24 03:17 of Legs haloperidol [From Haldol] AdvReac Agitation Verified 08/06/24 03:17 ketorolac [From Toradol] AdvReac Unknown Verified 08/06/24 03:17 lorazepam [From Ativan] AdvReac Hallucinati Verified 08/06/24 03:17 ons methylprednisolone AdvReac Altered Verified 08/06/24 03:17 [From Solu-Medrol] Mental Status ondansetron [From Zofran] AdvReac Unknown Verified 08/06/24 03:17 Review of Systems ROS Statement: Those systems with pertinent positive or pertinent negative responses have been documented in the HPI. ROS Other: All systems not noted in ROS Statement are negative. 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 PT IS ABLE TO MAKE DECISIONS FOR HIMSELF History of Any Multi-Drug Resistant Organisms: None Reported Past Surgical History: Tonsillectomy Additional Past Surgical History / Comment(s): wisdom teeth removed. Past Anesthesia/Blood Transfusion Reactions: No Reported Reaction Additional Past Anesthesia/Blood Transfusion Reaction / Comment(s): NEVER HAD BLOOD TRANSFUSION Past Psychological History: ADD/ADHD, Anxiety, Bipolar, Depression, PTSD Smoking Status: Former smoker Past Alcohol Use History: None Reported Past Drug Use History: Marijuana - Past Family History Sister(s) Additional Family Medical History / Comment(s): He has one sister that is healthy. He also has a 4-year-old daughter that is healthy. Father Family Medical History: GERD/Reflux Additional Family Medical History / Comment(s): DAD HAS ALSO NEVER BEEN AN ALCOHOLIC-RARELY, RARELY DRINKS. Mother Family Medical History: Cancer Additional Family Medical History / Comment(s): MOM STATES SHE HAS NEVER BEEN AN ALCOHOLIC-MOM RARELY ,RARELY DRINKS. HX THYROID CANCER General Exam - General Exam Comments Initial Comments: PE: CONSTITUTIONAL: No apparent distress, well appearing SKIN: Warm, dry, no jaundice, hives or petechiae EYES: Pupils are equally round, extraocular movements intact without nystagmus, clear conjunctiva, non-icteric sclera HENT: Normocephalic, atraumatic, moist mucus membranes, oropharynx clear without exudates NECK: , Full range of motion, normal appearance PULMONARY: Clear to auscultation without wheezes, rhonchi, or rales, normal ex cursion, no accessory muscle use and no stridor CARDIOVASCULAR: Regular rate, rhythm, normal S1 and S2. No appreciated murmurs, rubs or gallops. Strong radial pulses with intact distal perfusion. No lower extremity edema GASTROINTESTINAL: Soft, active bowel sounds throughout, when distracted patient does not endorse abdominal pain however when asked does endorse pain with deep palpation of the left lower quadrant and periumbilical region, no right lower quadrant tenderness, negative McBurney sign, non-distended, no palpable masses, no rebound or guarding. No hepatosplenomegaly, no peritoneal signs GENITOURINARY: MUSCULOSKELETAL: Extremities have no gross deformity, no edema, redness, or sw elling. No calf swelling NEUROLOGIC:_a/o x 3, GCS 15, normal mentation and speech. Moves all extremities x 4 without motor or sensory deficit PSYCHIATRIC:_normal mood and affect, thought process is clear and linear Limitations: no limitations Course Vital Signs 08/06/24 08/06/24 08/06/24 03:16 04:29 04:51 Temperature 100.2 F H 99.1 F Pulse Rate 114 H 96 Respiratory 20 18 Rate Blood Pressure 122/76 116/80 O2 Sat by Pulse 98 98 Oximetry 08/06/24 08/06/24 06:08 07:38 Temperature Pulse Rate 97 98 Respiratory 18 18 Rate Blood Pressure 109/71 115/72 O2 Sat by Pulse 97 97 Oximetry Medical Decision Making - Medical Decision Making Was pt. sent in by a medical professional or institution (LINO Patel, EMPLOYEE BENEFITS ADMINISTRATOR, urgent care, hospital, or assisted...) When possible be specific @ -No Did you speak to anyone other than the patient for history (EMS, parent, family, police, friend...)? What history was obtained from this source @ -No Did you review nursing and triage notes (agree or disagree)? Why? @ -I reviewed and agree with nursing and triage notes Were old charts reviewed (outside hosp., previous admission, EMS record, old EKG, old radiological studies, urgent care reports/EKG's, assisted records)? Report findings @Medical records reviewed- Patient is familiar to our emergency department with multiple prior visits, most recently on 08/04/2024 for right lower quadrant pain had a CT abdomen pelvis performed without contrast and did not show any acute findings Differential Diagnosis (chest pain, altered mental status, abdominal pain women, abdominal pain men, vaginal bleeding, weakness, fever, dyspnea, syncope, headache, dizziness, GI bleed, back pain, seizure, CVA, palpatations, mental health, musculoskeletal)? @Differential Abdominal Pain Men: Appendicitis, cholecystitis, diverticulosis, ischemic bowel, pancreatitis, hepatitis, UTI, gastroenteritis, incarcerated hernia, bowel obstruction, consti pation, inflammatory bowel, hepatitis, peptic ulcer disease, splenic infarction, perforated viscus, this is not meant to be an all-inclusive list EKG interpreted by me (3pts min.). @ -As above X-rays interpreted by me (1pt min.). @ -None done CT interpreted by me (1pt min.). @I see no evidence of appendicitis, obstruction, perforation/free air or free fluid in the abdomen, I see no evidence of acute surgical process U/S interpreted by me (1pt. min.). @ -None done What testing was considered but not performed or refused? (CT, X-rays, U/S, labs)? Why? @ -None What meds were considered but not given or refused? Why? @Bentyl was considered however patient declined Did you discuss the management of the patient with other professionals (professionals i.e. LINO Patel, EMPLOYEE BENEFITS ADMINISTRATOR, lab, RT, psych nurse, social sciences professor, resin maker, teacher, vice squad police officer, supportive employment case manager)? Give summary @ -No Was smoking cessation discussed for >3mins.? @ -No Was critical care preformed (if so, how long)? @ -No Were there social determinants of health that impacted care today? How? (Homelessness, low income, unemployed, alcoholism, drug addiction, transportation, low edu. Level, literacy, decrease access to med. care, fdc, r ehab)? @ -No Was there de-escalation of care discussed even if they declined (Discuss DNR or withdrawal of care, Hospice)? @ -No What co-morbidities impacted this encounter? (DM, HTN, Smoking, COPD, CAD, Cancer, CVA, ARF, Chemo, Hep., AIDS, mental health diagnosis, sleep apnea, morbid obesity)? @IBS Was patient admitted / discharged? Hospital course, mention meds given and route, prescriptions, significant lab abnormalities, going to OR and other pertinent info. @ -Discharged- this is a 34 gentleman history issues, IBS, possible Crohn's disease, presenting today for chronic lower abdominal pain worse today after eating ambrosia salad. No episodes of emesis, no diarrhea or constipation no prior abdominal surgeries. Patient is febrile with temp 100.2 on arrival oral, heart rate 112 bpm, blood pressure stable respiratory rate 20, though patient states pain consistent with prior IBS exacerbations, due to fever and tachycardia will obtain sepsis labs including blood cultures x 2 lactic, comprehensive labs including CRP CBC, CMP, urinalysis, will obtain CT abdomen pelvis with oral contrast and IV contrast, patient request morphine stating this is the only thing that has helped his pain and it is only thing he thinks will help his plan. I discussed with him IV fluids, a small dose of morphine, medication for nausea, Tylenol for his fever and GI cocktail. Patient is agreeable plan of care. I reassessed the patient and updated him to his lab findings. I asked patient how pain felt after GI cocktail however he refused to take GI cocktail. Patient requests next dose of morphine. I discussed with the patient that I would like to trial GI cocktail prior to administering any further narcotics. Patient's states he felt "kind of out of it" when offered the GI cocktail but will take it now if he receives morphine beforehand. I discussed with him that if he was "feeling out of it" I do not feel additional narcotics are a good idea as they could make him feel sleepier. Patient now states "actually I didn't feel out of it" and again requests morphine. I discussed with the patient that it this point, we should trial GI cocktail and will not be receiving additional narcotics. Patient's labs show mild leukocytosis white blood cell count 12, neutrophils 8.9, hemoglobin hemoconcentrated at 18.3 hematocrit 53.7, chloride 108, bicarb 21, lactic reassuring 1.6, glucose 119 total bili 1.6 LFTs within normal limits, CRP not elevated at 0.6, lipase 46, viral panel within normal limits, CT abdomen pelvis showed no acute process. I reassessed the patient and he states the GI cocktail did not help. He requested an additional dose of morphine and I discussed with him his reassuring workup and offered Bentyl, lidocaine patch and capsaicin cream however the patient states that he does not want these. He states the only other thing that has worked for his pain is dialuadid. He is adamant his pain is 2/2 IBS. I discussed with him that narcotics are not indicated in IBS and at this point emergent processes have been ruled out. Discussed with the patient plan for discharge home he should continue to take home pain medications including Bentyl and continue with clear liquid diet for the next 24 hours. We discussed signs symptoms warranting return to the emergency department patient was agreeable plan. In my medical judgment there is currently no evidence of an immediate life- threatening or surgical condition. Discharge is therefore indicated at this time. Discharge treatment instructions, follow up instructions, and appropriate emergency department return precautions were discussed with the patient and/or medical decision maker. Patient and/or medical decision maker expressed understanding of and agreed with the treatment plan, follow up instructions, and emergency department return precaution. All patient's and/or medical decision maker's questions were answered. The patient was advised that a small risk still exists that a serious condition could develop and was therefore instructed to return to the ED for any changes in symptoms, persistent symptoms, inability to obtain proper follow-up or for any further concerns. Patient received verbal and written instructions for this condition. Undiagnosed new problem with uncertain prognosis? @ -No Drug Therapy requiring intensive monitoring for toxicity (Heparin, Nitro, Insulin, Cardizem)? @ -No Were any procedures done? @ -No Diagnosis/symptom? Abdominal pain, fever Acute, or Chronic, or Acute on Chronic? @Acute on chronic abdominal pain Uncomplicated (without systemic symptoms) or Complicated (systemic symptoms)? @ -complicated Side effects of treatment? @ -No Exacerbation, Progression, or Severe Exacerbation? @ -No Poses a threat to life or bodily function? How? (Chest pain, [place], NH, pneumonia, PE, COPD, DKA, ARF, appy, cholecystitis, CVA, Diverticulitis, Homicidal, Suicidal, threat to staff... and all critical care pts) @ -No - Lab Data Result diagrams: 08/06/24 04:00 08/06/24 04:00 Lab Results 08/06/24 08/06/24 08/06/24 Range/Units 04:00 04:00 04:00 WBC 12.0 H (3.8-10.6) k/uL RBC 5.78 (4.30-5.90) m/uL Hgb 18.3 H (13.0-17.5) gm/dL Hct 53.7 H (39.0-53.0) % MCV 92.9 (80.0-100.0) fL MCH 31.7 (25.0-35.0) pg MCHC 34.1 (31.0-37.0) g/dL RDW 13.0 (11.5-15.5) % Plt Count 213 (150-450) k/uL MPV 7.5 Neutrophils % 75 % Lymphocytes % 19 % Monocytes % 5 % Eosinophils % 1 % Basophils % 1 % Neutrophils # 8.9 H (1.3-7.7) k/uL Lymphocytes # 2.2 (1.0-4.8) k/uL Monocytes # 0.5 (0-1.0) k/uL Eosinophils # 0.1 (0-0.7) k/uL Basophils # 0.1 (0-0.2) k/uL PT 11.2 (10.0-12.5) sec INR 1.0 (<1.2) APTT 26.6 (22.0-30.0) sec Sodium 141 (137-145) mmol/L Potassium 3.9 (3.5-5.1) mmol/L Chloride 108 H (98-107) mmol/L Carbon Dioxide 21 L (22-30) mmol/L Anion Gap 12 mmol/L BUN 19 (9-20) mg/dL Creatinine 1.19 (0.66-1.25) mg/dL Est GFR (CKD-EPI)AfAm >90 (>60 ml/min/1.73 sqM) Est GFR (CKD-EPI)NonAf 78 (>60 ml/min/1.73 sqM) Glucose 119 H (74-99) mg/dL Plasma Lactic Acid Socrates (0.7-2.0) mmol/L Calcium 10.4 H (8.4-10.2) mg/dL Total Bilirubin 1.6 H (0.2-1.3) mg/dL AST 28 (17-59) U/L ALT 31 (4-49) U/L Alkaline Phosphatase 111 (38-126) U/L C-Reactive Protein 0.6 (<1.0) mg/dL Total Protein 8.6 H (6.3-8.2) g/dL Albumin 5.6 H (3.5-5.0) g/dL Amylase 48 (30-110) U/L Lipase 46 (23-300) U/L Influenza Type A (PCR) (Not Detectd) Influenza Type B (PCR) (Not Detectd) RSV (PCR) (Not Detectd) SARS-CoV-2 (PCR) (Not Detectd) 08/06/24 08/06/24 Range/Units 04:00 04:20 WBC (3.8-10.6) k/uL RBC (4.30-5.90) m/uL Hgb (13.0-17.5) gm/dL Hct (39.0-53.0) % MCV (80.0-100.0) fL MCH (25.0-35.0) pg MCHC (31.0-37.0) g/dL RDW (11.5-15.5) % Plt Count (150-450) k/uL MPV Neutrophils % % Lymphocytes % % Monocytes % % Eosinophils % % Basophils % % Neutrophils # (1.3-7.7) k/uL Lymphocytes # (1.0-4.8) k/uL Monocytes # (0-1.0) k/uL Eosinophils # (0-0.7) k/uL Basophils # (0-0.2) k/uL PT (10.0-12.5) sec INR (<1.2) APTT (22.0-30.0) sec Sodium (137-145) mmol/L Potassium (3.5-5.1) mmol/L Chloride (98-107) mmol/L Carbon Dioxide (22-30) mmol/L Anion Gap mmol/L BUN (9-20) mg/dL Creatinine (0.66-1.25) mg/dL Est GFR (CKD-EPI)AfAm (>60 ml/min/1.73 sqM) Est GFR (CKD-EPI)NonAf (>60 ml/min/1.73 sqM) Glucose (74-99) mg/dL Plasma Lactic Acid Socrates 1.6 (0.7-2.0) mmol/L Calcium (8.4-10.2) mg/dL Total Bilirubin (0.2-1.3) mg/dL AST (17-59) U/L ALT (4-49) U/L Alkaline Phosphatase (38-126) U/L C-Reactive Protein (<1.0) mg/dL Total Protein (6.3-8.2) g/dL Albumin (3.5-5.0) g/dL Amylase (30-110) U/L Lipase (23-300) U/L Influenza Type A (PCR) Not Detected (Not Detectd) Influenza Type B (PCR) Not Detected (Not Detectd) RSV (PCR) Not Detected (Not Detectd) SARS-CoV-2 (PCR) Not Detected (Not Detectd) Disposition Clinical Impression: Abdominal pain, Drug-seeking behavior, Pulmonary nodule Disposition: HOME SELF-CARE Condition: Good Instructions (If sedation given, give patient instructions): Abdominal Pain (ED) Additional Instructions: Every disease is a spectrum and a small chance still exists that a serious condition could develop, for this reason, please monitor yourself closely for new, changing or worsening symptoms, failure symptoms to improve in 24 hours, fever for more than 4 days, pain that you cannot control with home medications, black or bloody stools, vomiting bright green vomit or blood, inability to tolerate/keep down fluids or your medications, inability to follow up with outpatient providers as instructed and should you experience these symptoms or should you have any further concerns for your wellbeing please return to the ED or call 911 immediately. Please maintain a clear liquid diet for the next 24 hours, this means you can have broth, juices, uncaffienated fluids, popsicles, etc. Please progress your diet/ continue to solids as abdominal pain improves. You need to follow up with your director underwriter sales in 48 hours regarding today's visit. Please follow up with your PCP regarding pulmonary nodule for recheck in 3-6 months. PLEASE call your primary care physician as soon as possible to arrange / discuss plan for followup appointment. Appointment in the next 1-3 days is strongly encouraged if possible. PLEASE let us know here before you leave if there is anything further we can do to be of any assistance. Take care and feel Better! Is patient prescribed a controlled substance at d/c from ED?: No Referrals: Sumeet Mejias III, MD [Primary Care Provider] - 1-2 days
[2024-08-06] MEDS: ACETAMINOPHEN TAB 500 MG TAB PO STA (04:05)
[2024-08-06] MEDS: SODIUM CHLORIDE 0.9% 1,000 ML IV STA (04:05)
[2024-08-06] MEDS: SODIUM CHLORIDE 0.9% 1,000 ML IV ONE (04:05)
[2024-08-06] MEDS: MORPHINE SULFATE 2 MG/ML SYRINGE IVP STA (04:07)
[2024-08-06] MEDS: METOCLOPRAMIDE 5 MG/ML 2 ML VIAL IVP STA (04:08)
[2024-08-06] MEDS: diphenhydrAMINE 50 MG/ML 1 ML VIAL IVP STA (04:08)
[2024-08-06] MEDS: MAG HYDROX/AL HYDROX/SIMETH 30 ML, HYOSCYAMINE ELIXIR 10 ML, LIDOCAINE VISCOUS 2% 10 ML PO STA ×2 (04:09→06:36)
[2024-08-06 04:15] LABS: Basophils # (A) 0.1 k/uL (0-0.2); Basophils % (A) 1 %; Eosinophils # (A) 0.1 k/uL (0-0.7); Eosinophils % (A) 1 %; HCT 53.7 % (39.0-53.0); HGB 18.3 gm/dL (13.0-17.5); Lymphocytes # (A) 2.2 k/uL (1.0-4.8); Lymphocytes % (A) 19 %; MCH 31.7 pg (25.0-35.0); MCHC 34.1 g/dL (31.0-37.0); MCV 92.9 fL (80.0-100.0); Mean Platelet Volume 7.5; Monocytes # (A) 0.5 k/uL (0-1.0); Monocytes % (A) 5 %; Neutrophils # (A) 8.9 k/uL (1.3-7.7); Neutrophils % (A) 75 %; Platelet Count 213 k/uL (150-450); RBC 5.78 m/uL (4.30-5.90)
[2024-08-06] MEDS: cefTRIAXone IN SWFI 1,000 MG/10 ML SYRINGE IVP STA ×2 (04:15→04:24)
[2024-08-06 04:28] LABS: ALT 31 U/L (4-49); African American GFR (CKD) >90 (>60 ml/min/1.73 sqM); Albumin 5.6 g/dL (3.5-5.0); Amylase 48 U/L (30-110); Anion Gap 12 mmol/L; Blood Urea Nitrogen 19 mg/dL (9-20); C Reactive Protein 0.6 mg/dL (<1.0); Calcium 10.4 mg/dL (8.4-10.2); Carbon Dioxide 21 mmol/L (22-30); Chloride 108 mmol/L (98-107); Glucose 119 mg/dL (74-99); Lipase 46 U/L (23-300); Non-African American GFR(CKD) 78 (>60 ml/min/1.73 sqM); Sodium 141 mmol/L (137-145); Total Bilirubin 1.6 mg/dL (0.2-1.3); Total Protein 8.6 g/dL (6.3-8.2)
[2024-08-06 04:30] VITALS: RESP 18
[2024-08-06 04:52] VITALS: TEMP 99.1
[2024-08-06 04:53] LABS: Partial Thromboplastin Time 26.6 sec (22.0-30.0); Prothrombin Time 11.2 sec (10.0-12.5)
[2024-08-06 04:59] LABS: AST 28 U/L (17-59); Alkaline Phosphatase 111 U/L (38-126); Potassium 3.9 mmol/L (3.5-5.1)
[2024-08-06] MEDS: metroNIDAZOLE-NS PMX 500 MG in SALINE 1 100ML.BAG IVPB STA (05:25)
[2024-08-06] MEDS: FAMOTIDINE 20 MG TAB PO STA (06:31)
[2024-08-06] MEDS: SUCRALFATE 1 GM TAB PO STA (06:33)
--- NOTE | 2024-08-06 06:44 | CT ---
EXAMINATION TYPE: CT abdomen pelvis w con DATE OF EXAM: 08/06/2024 COMPARISON: 07/29/2024 CLINICAL INDICATION: Male, 34 years old with history of LLQ pain, hx chron's fever; PHH, TECHNIQUE: Multiple axial images are obtained through the abdomen and pelvis following uneventful administration of nonionic IV contrast material. Automated exposure control for dose reduction was used. FINDINGS: There is a 5.6 mm nodule in the right lung base. There are a few scattered micronodules as well. Ther e is no airspace consolidation or abnormal interstitial opacity. The gallbladder is normal without distention, wall thickening, pericholecystic fluid or gallstones. T here is no biliary ductal dilatation. There is no focal mass or organomegaly involving the liver, pancreas, spleen or adrenal glands. There is no solid renal mass or hydronephrosis and there is homogeneous contrast enhancement of the r enal parenchyma. The caliber the abdominal aorta is normal is no retroperitoneal adenopathy or hemorr lashon. The bowel loops are normal in caliber and there is no evidence of dilatation or obstruction. No infla mmatory changes are identified in the bowel wall or mesentery. There is no free intraperitoneal air or fluid. No pelvic mass, free fluid, abscess or adenopathy. The osseous structures and soft tissues are intact. IMPRESSION: No acute changes within the abdomen or pelvis. No interval change. [facility], , 08/06/2024 6:41 AM
[2024-08-06 07:40] VITALS: BP 115/72; PULSE 98
== END 2024-08-06 07:42 | disposition home or self-care (01) ==
LOC: EC 03:11
DX: R10.32 Left lower quadrant pain (principal); R91.1 Solitary pulmonary nodule; Z87.891 Personal history of nicotine dependence; Z88.8 Allergy status to other drugs, medicaments and biological substances; Z88.5 Allergy status to narcotic agent
CPT/HCPCS: 99285; 96365; 96366; 96375 ×2; 96361 ×2; 36415; 80053; 82150; 83605; 83690; 85025; 85610; 85730; 86140; 87040; 87636; 74177; J0696; J2270; Q9967; J1836

== ENCOUNTER 2024-08-06 12:14 | Emergency (ER) | payer OTHER ==
--- NOTE | 2024-08-06 12:40 | ED ---
General Adult HPI - General Chief complaint: Abdominal Pain Stated complaint: Abdominal Pain Time Seen by Provider: 08/06/24 12:21 Source: patient, RN notes reviewed Mode of arrival: wheelchair Limitations: no limitations - History of Present Illness Initial comments: 34-year-old male presents to the emergency department for evaluation of abdominal pain. Patient reports that he was here earlier and evaluated. He states that he had labs and CT done at that time which were unremarkable. Patient states that the medication that he was provided "made his pain worse." He denies fever, nausea, vomiting. He reports a normal bowel movement prior to arrival. He denies any melena, hematochezia. Patient reports that the only thing that is helpful is morphine. He has been here multiple times recently for this abdominal pain requesting morphine. - Related Data Home Medications Medication Instructions Recorded Confirmed Nicotine 21Mg/24Hr Patch [Habitrol] 1 patch TRANSDERM HS 07/18/24 07/19/24 Previous Rx's Medication Instructions Recorded ALPRAZolam [Xanax] 0.5 mg PO TID PRN #9 tablet 07/18/24 Nicotine 14Mg/24Hr Patch [Habitrol] 1 patch TRANSDERM DAILY patch 07/21/24 Omeprazole [PriLOSEC] 20 mg PO AC-BRKFST 30 Days #30 cap 07/21/24 Ziprasidone [Geodon] 20 mg PO 1700 30 Days #30 cap 07/21/24 fluvoxaMINE MALEATE 50 mg PO BID 30 Days #60 tab 07/21/24 lamoTRIgine [LaMICtal] 100 mg PO DAILY 30 Days #30 tab 07/21/24 Loperamide HCl [Imodium A-D] 2 mg PO ONCE #30 tablet 07/29/24 Simethicone [Gas-X] 125 mg PO QID #40 capsule 07/30/24 Allergies Allergy/AdvReac Type Severity Reaction Status Date / Time aripiprazole [From Abilify] Allergy Unknown Agitation Verified 08/06/24 12:16 cariprazine [From Vraylar] Allergy Unknown Agitation Verified 08/06/24 12:16 citalopram [From Celexa] Allergy Unknown Agitation Verified 08/06/24 12:16 divalproex sodium Allergy Unknown Agitation Verified 08/06/24 12:16 [From Depakote] paroxetine [From Paxil] Allergy Unknown Agitation Verified 08/06/24 12:16 sertraline [From Zoloft] Allergy Unknown Agitation Verified 08/06/24 12:16 phenobarbital AdvReac Severe Rapid Verified 08/06/24 12:16 Heart Rate zolpidem tartrate AdvReac Unknown Altered Verified 08/06/24 12:16 [From Ambien] Mental Status estropipate [From Ogen 2.5] AdvReac Twitching Verified 08/06/24 12:16 of Legs haloperidol [From Haldol] AdvReac Agitation Verified 08/06/24 12:16 ketorolac [From Toradol] AdvReac Unknown Verified 08/06/24 12:16 lorazepam [From Ativan] AdvReac Hallucinati Verified 08/06/24 12:16 ons methylprednisolone AdvReac Altered Verified 08/06/24 12:16 [From Solu-Medrol] Mental Status ondansetron [From Zofran] AdvReac Unknown Verified 08/06/24 12:16 Review of Systems ROS Statement: Those systems with pertinent positive or pertinent negative responses have been documented in the HPI. ROS Other: All systems not noted in ROS Statement are negative. 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 PT IS ABLE TO MAKE DECISIONS FOR HIMSELF History of Any Multi-Drug Resistant Organisms: None Reported Past Surgical History: Tonsillectomy Additional Past Surgical History / Comment(s): wisdom teeth removed. Past Anesthesia/Blood Transfusion Reactions: No Reported Reaction Additional Past Anesthesia/Blood Transfusion Reaction / Comment(s): NEVER HAD BLOOD TRANSFUSION Past Psychological History: ADD/ADHD, Anxiety, Bipolar, Depression, PTSD Smoking Status: Former smoker Past Alcohol Use History: None Reported Past Drug Use History: Marijuana - Past Family History Sister(s) Additional Family Medical History / Comment(s): He has one sister that is healthy. He also has a 4-year-old daughter that is healthy. Father Family Medical History: GERD/Reflux Additional Family Medical History / Comment(s): DAD HAS ALSO NEVER BEEN AN ALCOHOLIC-RARELY, RARELY DRINKS. Mother Family Medical History: Cancer Additional Family Medical History / Comment(s): MOM STATES SHE HAS NEVER BEEN AN ALCOHOLIC-MOM RARELY ,RARELY DRINKS. HX THYROID CANCER General Exam Limitations: no limitations General appearance: alert, in no apparent distress Head exam: Present: atraumatic, normocephalic, normal inspection Eye exam: Present: normal appearance, PERRL, EOMI. Absent: scleral icterus, conjunctival injection, periorbital swelling ENT exam: Present: normal exam, mucous membranes moist Neck exam: Present: normal inspection. Absent: tenderness, meningismus, lymphadenopathy Respiratory exam: Present: normal lung sounds bilaterally. Absent: respiratory distress, wheezes, rales, rhonchi, stridor Cardiovascular Exam: Present: regular rate, normal rhythm, normal heart sounds. Absent: systolic murmur, diastolic murmur, rubs, gallop, clicks GI/Abdominal exam: Present: soft, normal bowel sounds. Absent: distended, tenderness, guarding, rebound, rigid Extremities exam: Present: normal inspection, full ROM, normal capillary refill. Absent: tenderness, pedal edema, joint swelling, calf tenderness Back exam: Present: normal inspection Neurological exam: Present: alert, oriented X3 Psychiatric exam: Present: normal affect, normal mood Skin exam: Present: warm, dry, intact, normal color. Absent: rash Course Vital Signs 08/06/24 08/06/24 12:16 13:25 Temperature 98.6 F 97.8 F Pulse Rate 80 77 Respiratory 20 18 Rate Blood Pressure 126/74 107/74 O2 Sat by Pulse 99 98 Oximetry Medical Decision Making - Medical Decision Making Was pt. sent in by a medical professional or institution (, PA, MANAGER HRIS, urgent care, hospital, or long term...) When possible be specific @ -No Did you speak to anyone other than the patient for history (EMS, parent, family, police, friend...)? What history was obtained from this source @ -No Did you review nursing and triage notes (agree or disagree)? Why? @ -I reviewed and agree with nursing and triage notes Were old charts reviewed (outside hosp., previous admission, EMS record, old EKG, old radiological studies, urgent care reports/EKG's, long term records)? Report findings @ -No old charts were reviewed Differential Diagnosis (chest pain, altered mental status, abdominal pain women, abdominal pain men, vaginal bleeding, weakness, fever, dyspnea, syncope, headache, dizziness, GI bleed, back pain, seizure, CVA, palpatations, mental health, musculoskeletal)? @ -Differential Abdominal Pain Men: Appendicitis, cholecystitis, diverticulosis, ischemic bowel, pancreatitis, hepatitis, UTI, gastroenteritis, AAA, incarcerated hernia, bowel obstruction, constipation, inflammatory bowel, hepatitis, peptic ulcer disease, splenic infarction, perforated viscus, testicular torsion, this is not meant to be an all-inclusive list EKG interpreted by me (3pts min.). @ -None X-rays interpreted by me (1pt min.). @ -None done CT interpreted by me (1pt min.). @ -None done U/S interpreted by me (1pt. min.). @ -None done What testing was considered but not performed or refused? (CT, X-rays, U/S, labs)? Why? @ -CT and laboratory studies from this morning were reviewed without evidence for acute process What meds were considered but not given or refused? Why? @ -None Did you discuss the management of the patient with other professionals (professionals i.e. , PA, MANAGER HRIS, lab, RT, psych nurse, social sciences professor, engineering leader, teacher, correctional officer lieutenant, correctional case manager)? Give summary @ -No Was smoking cessation discussed for >3mins.? @ -No Was critical care preformed (if so, how long)? @ -No Were there social determinants of health that impacted care today? How? (Homelessness, low income, unemployed, alcoholism, drug addiction, transportation, low edu. Level, literacy, decrease access to med. care, senior living, r ehab)? @ -No Was there de-escalation of care discussed even if they declined (Discuss DNR or withdrawal of care, Hospice)? DNR status @ -No What co-morbidities impacted this encounter? (DM, HTN, Smoking, COPD, CAD, Cancer, CVA, ARF, Chemo, Hep., AIDS, mental health diagnosis, sleep apnea, morbid obesity)? @ -None Was patient admitted / discharged? Hospital course, mention meds given and route, prescriptions, significant lab abnormalities, going to OR and other pertinent info. @ -Discharged. Patient presented to the emergency department for evaluation of abdominal pain. Patient reports that this is the same pain that he has been experiencing. He reports that it is related to his IBS. He states that he was here earlier today in the pain came back. Discussed with the patient that we can try other medications to attempt to alleviate the pain but we would not be using narcotic medications. The patient continued to request morphine. Patient will be discharged home. Case discussed with Dr. Leslie Undiagnosed new problem with uncertain prognosis? @ -No Drug Therapy requiring intensive monitoring for toxicity (Heparin, Nitro, Insulin, Cardizem)? @ -No Were any procedures done? @ -No Diagnosis/symptom? @ -Abdominal pain, IBS, drug-seeking behavior Acute, or Chronic, or Acute on Chronic? @ -Chronic Uncomplicated (without systemic symptoms) or Complicated (systemic symptoms)? @ -Uncomplicated Side effects of treatment? @ -No Exacerbation, Progression, or Severe Exacerbation? @ -No Poses a threat to life or bodily function? How? (Chest pain, [place], [place], pneumonia, PE, COPD, DKA, ARF, appy, cholecystitis, CVA, Diverticulitis, Homicidal, Suicidal, threat to staff... and all critical care pts) @ -No Disposition Clinical Impression: Abdominal pain Disposition: HOME SELF-CARE Condition: Stable Instructions (If sedation given, give patient instructions): Abdominal Pain (ED) Additional Instructions: Please follow up with your primary care provider. Return to the emergency department for new or worsening symptoms. Is patient prescribed a controlled substance at d/c from ED?: No Referrals: Sumeet Mejias III, MD [Primary Care Provider] - 1-2 days
[2024-08-06] MEDS: MAG HYDROX/AL HYDROX/SIMETH 30 ML, HYOSCYAMINE ELIXIR 10 ML, LIDOCAINE VISCOUS 2% 10 ML PO STA (13:22)
[2024-08-06 13:28] VITALS: BP 107/74; PULSE 77; RESP 18; TEMP 97.8
== END 2024-08-06 13:28 | disposition home or self-care (01) ==
LOC: EC 12:14
DX: K58.9 Irritable bowel syndrome, unspecified (principal); Z72.89 Other problems related to lifestyle; Z87.891 Personal history of nicotine dependence; Z88.8 Allergy status to other drugs, medicaments and biological substances
CPT/HCPCS: 99283

== ENCOUNTER 2024-08-24 14:07 | Emergency (ER) | payer OTHER ==
[2024-08-24 14:32] VITALS: BP 115/80; PULSE 93; RESP 20; TEMP 98.9
[2024-08-24 14:54] LABS: Basophils % (A) 0 %; Eosinophils # (A) 0.2 k/uL (0-0.7); Eosinophils % (A) 2 %; HCT 49.2 % (39.0-53.0); HGB 17.2 gm/dL (13.0-17.5); Lymphocytes # (A) 3.3 k/uL (1.0-4.8); Lymphocytes % (A) 41 %; MCH 31.5 pg (25.0-35.0); MCHC 35.1 g/dL (31.0-37.0); MCV 89.9 fL (80.0-100.0); Mean Platelet Volume 7.6; Monocytes # (A) 0.6 k/uL (0-1.0); Monocytes % (A) 7 %; Neutrophils % (A) 49 %; Platelet Count 215 k/uL (150-450); RBC 5.47 m/uL (4.30-5.90); RDW 13.2 % (11.5-15.5); WBC 8.2 k/uL (3.8-10.6)
--- NOTE | 2024-08-24 15:10 | ED ---
Abdominal Pain HPI - General Source: patient, RN notes reviewed Mode of arrival: ambulatory Limitations: no limitations <Annel Chacon - Last Filed: 08/24/24 15:10> <Kathleen Gupta - Last Filed: 08/25/24 17:38> - General Chief Complaint: Abdominal Pain Stated Complaint: Abdominal Pain Time Seen by Provider: 08/24/24 15:10 - History of Present Illness Initial Comments: Quick note: 34-year-old male presenting to the ER for evaluation of gas/constipation. Patient states past couple of days he has not had a bowel movement and is concerned he is constipated. He reports taking a steroid pack on an empty stomach and started to have abdominal cramping. No nausea vomiting or fevers. (Annel Chacon) Patient is a 34-year-old male with a history of IBS presenting for generalized abdominal pain. Hx chronic abdominal pain. Thinks he could potentially be constipated. Last bowel movement was 2 to 3 days ago. Ate a hungry le[employer] calzone and took steroids on an empty stomach. States similar to his usual IBS pain. States morphine typically helps his pain. Endorses nausea, denies chest pain, shortness of breath,vomiting, diarrhea, hematochezia, melena, hematuria, flank pain, dysuria, fevers, chills. Additionally states he is hearing voices but this has been ongoing for 5 years and he sees he saw his doctor last week for this. They are not telling him to harm himself or others. Denies SI/ or HI. No prior adominal surgeries. (Kathleen Gupta) - Related Data Home Medications Medication Instructions Recorded Confirmed Nicotine 21Mg/24Hr Patch [Habitrol] 1 patch TRANSDERM HS 07/18/24 07/19/24 Previous Rx's Medication Instructions Recorded ALPRAZolam [Xanax] 0.5 mg PO TID PRN #9 tablet 07/18/24 Nicotine 14Mg/24Hr Patch [Habitrol] 1 patch TRANSDERM DAILY patch 07/21/24 Omeprazole [PriLOSEC] 20 mg PO AC-BRKFST 30 Days #30 cap 07/21/24 Ziprasidone [Geodon] 20 mg PO 1700 30 Days #30 cap 07/21/24 fluvoxaMINE MALEATE 50 mg PO BID 30 Days #60 tab 07/21/24 lamoTRIgine [LaMICtal] 100 mg PO DAILY 30 Days #30 tab 07/21/24 Loperamide HCl [Imodium A-D] 2 mg PO ONCE #30 tablet 07/29/24 Simethicone [Gas-X] 125 mg PO QID #40 capsule 07/30/24 Allergies Allergy/AdvReac Type Severity Reaction Status Date / Time aripiprazole [From Abilify] Allergy Unknown Agitation Verified 08/06/24 12:16 cariprazine [From Vraylar] Allergy Unknown Agitation Verified 08/06/24 12:16 citalopram [From Celexa] Allergy Unknown Agitation Verified 08/06/24 12:16 divalproex sodium Allergy Unknown Agitation Verified 08/06/24 12:16 [From Depakote] paroxetine [From Paxil] Allergy Unknown Agitation Verified 08/06/24 12:16 sertraline [From Zoloft] Allergy Unknown Agitation Verified 08/06/24 12:16 phenobarbital AdvReac Severe Rapid Verified 08/06/24 12:16 Heart Rate zolpidem tartrate AdvReac Unknown Altered Verified 08/06/24 12:16 [From Ambien] Mental Status estropipate [From Ogen 2.5] AdvReac Twitching Verified 08/06/24 12:16 of Legs haloperidol [From Haldol] AdvReac Agitation Verified 08/06/24 12:16 ketorolac [From Toradol] AdvReac Unknown Verified 08/06/24 12:16 lorazepam [From Ativan] AdvReac Hallucinati Verified 08/06/24 12:16 ons methylprednisolone AdvReac Altered Verified 08/06/24 12:16 [From Solu-Medrol] Mental Status ondansetron [From Zofran] AdvReac Unknown Verified 08/06/24 12:16 Review of Systems ROS Other: All systems not noted in ROS Statement are negative. <Annel Chacon - Last Filed: 08/24/24 15:10> ROS Other: All systems not noted in ROS Statement are negative. <Kathleen Gupta - Last Filed: 08/25/24 17:38> ROS Statement: Those systems with pertinent positive or pertinent negative responses have been documented in the HPI. 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 PT IS ABLE TO MAKE DECISIONS FOR HIMSELF History of Any Multi-Drug Resistant Organisms: None Reported Past Surgical History: Tonsillectomy Additional Past Surgical History / Comment(s): wisdom teeth removed. Past Anesthesia/Blood Transfusion Reactions: No Reported Reaction Additional Past Anesthesia/Blood Transfusion Reaction / Comment(s): NEVER HAD BLOOD TRANSFUSION Past Psychological History: ADD/ADHD, Anxiety, Bipolar, Depression, PTSD Smoking Status: Former smoker Past Alcohol Use History: None Reported Past Drug Use History: Marijuana - Past Family History Sister(s) Additional Family Medical History / Comment(s): He has one sister that is healthy. He also has a 4-year-old daughter that is healthy. Father Family Medical History: GERD/Reflux Additional Family Medical History / Comment(s): DAD HAS ALSO NEVER BEEN AN ALCOHOLIC-RARELY, RARELY DRINKS. Mother Family Medical History: Cancer Additional Family Medical History / Comment(s): MOM STATES SHE HAS NEVER BEEN AN ALCOHOLIC-MOM RARELY ,RARELY DRINKS. HX THYROID CANCER <Annel Chacon - Last Filed: 08/24/24 15:10> General Exam Limitations: no limitations <Annel Chacon - Last Filed: 08/24/24 15:10> <Kathleen Gupta - Last Filed: 08/25/24 17:38> - General Exam Comments Initial Comments: Visual Physical Exam Vital signs reviewed General: Well-appearing, nontoxic, no acute distress. Head: Normocephalic, atraumatic Eyes: PERRLA, EOMI ENT: Airway patent Chest: Nonlabored breathing Skin: No visual rash, normal skin tone Neuro: Alert and oriented 3 Musculoskeletal: No gross abnormalities (Annel Chacon) PE: CONSTITUTIONAL: No apparent distress, well appearing SKIN: Warm, dry, no jaundice, hives or petechiae EYES: Pupils are equally round, extraocular movements intact without nystagmus, clear conjunctiva, non-icteric sclera HENT: Normocephalic, atraumatic, moist mucus membranes, oropharynx clear without exudates NECK: , Full range of motion, normal appearance PULMONARY: Clear to auscultation without wheezes, rhonchi, or rales, normal excursion, no accessory muscle use and no stridor CARDIOVASCULAR: Regular rate, rhythm, normal S1 and S2. No appreciated murmurs, rubs or gallops. Strong radial pulses with intact distal perfusion. No lower extremity edema GASTROINTESTINAL: Soft, active bowel sounds throughout, non-tender, non- distended, no palpable masses, no rebound or guarding. No hepatosplenomegaly, no CVA tenderness GENITOURINARY: MUSCULOSKELETAL: Extremities have no gross deformity, no edema, redness, or swelling. No calf swelling NEUROLOGIC:_a/o x 3, GCS 15, normal mentation and speech. Moves all extremities x 4 without motor or sensory deficit PSYCHIATRIC:_normal mood and affect, thought process is clear and linear, does not appear to be responding to internal stimuli, no SI/HI (Kathleen Gupta) Course Vital Signs 08/24/24 14:27 Temperature 98.9 F Pulse Rate 93 Respiratory 20 Rate Blood Pressure 115/80 O2 Sat by Pulse 97 Oximetry Medical Decision Making - Lab Data Result diagrams: 08/24/24 14:45 <Annel Chacon - Last Filed: 08/24/24 15:10> - Lab Data Result diagrams: 08/24/24 14:45 08/24/24 14:45 <Kathleen Gupta - Last Filed: 08/25/24 17:38> - Medical Decision Making I performed the quick note portion of this chart. Electronically signed by Annel Chacon PA-C (Annel Chacon) Was pt. sent in by a medical professional or institution (LINO Patel, [employer] G[employer] OPERATOR, urgent care, hospital, or fci...) When possible be specific @ -No Did you speak to anyone other than the patient for history (EMS, parent, family, police, friend...)? What history was obtained from this source @ -No Did you review nursing and triage notes (agree or disagree)? Why? @ -I reviewed and agree with nursing and triage notes Were old charts reviewed (outside hosp., previous admission, EMS record, old EKG, old radiological studies, urgent care reports/EKG's, fci records)? Report findings @Medical records reviewed, that patient here previously on 08/06/2024 and seen by myself and another provider for similar pain. A CT abdomen pelvis at that time showed no acute process. Patient again requesting morphine during that visit as well. Differential Diagnosis (chest pain, altered mental status, abdominal pain women, abdominal pain men, vaginal bleeding, weakness, fever, dyspnea, syncope, headache, dizziness, GI bleed, back pain, seizure, CVA, palpatations, mental health, musculoskeletal)? @Differential Abdominal Pain Men: Appendicitis, cholecystitis, diverticulosis, ischemic bowel, pancreatitis, hepatitis, UTI, gastroenteritis, AAA, incarcerated hernia, bowel obstruction, constipation, inflammatory bowel, hepatitis, peptic ulcer disease, splenic infarction, perforated viscus, testicular torsion, this is not meant to be an all-inclusive list Differential diagnosis remains broad however top considerations include constipation, IBS, inflammatory bowel disease, gastroenteritis, bowel obstruction, peptic ulcer disease this is not all-inclusive list. Based on s ymptoms, physical exam I have a very low suspicion for acute infectious or surgical etiology of patient's pain. For this reason I do not feel advanced imaging beyond x-ray that was ordered in triage is required or indicated. EKG interpreted by me (3pts min.). @ -As above X-rays interpreted by me (1pt min.). @No free air or volvulus on KUB x-ray, no evidence of bowel obstruction CT interpreted by me (1pt min.). @ -None done U/S interpreted by me (1pt. min.). @ -None done What testing was considered but not performed or refused? (CT, X-rays, U/S, labs)? Why? @ -None What meds were considered but not given or refused? Why? @ -None Did you discuss the management of the patient with other professionals (professionals i.e. , PA, [employer] NAT[employer] G[employer] OPERATOR, lab, RT, psych nurse, social science research assistant, serials librarian, teacher, us customs and border officer, telephonic nurse case manager)? Give summary @ -No Was smoking cessation discussed for >3mins.? @ -No Was critical care preformed (if so, how long)? @ -No Were there social determinants of health that impacted care today? How? (Homelessness, low income, unemployed, alcoholism, drug addiction, transportati on, low edu. Level, literacy, decrease access to med. care, assisted, rehab)? @ -No Was there de-escalation of care discussed even if they declined (Discuss DNR or withdrawal of care, Hospice)? @ -No What co-morbidities impacted this encounter? (DM, HTN, Smoking, COPD, CAD, Cancer, CVA, ARF, Chemo, Hep., AIDS, mental health diagnosis, sleep apnea, morbid obesity)? @IBS Was patient admitted / discharged? Hospital course, mention meds given and route, prescriptions, significant lab abnormalities, going to OR and other pertinent info. @ -Discharged- Patient here for chronic IBS pain. Reviewed labs obtained by triage provider,they show no leukocytosis, lipase is not elevated GFR within normal paris its LFTs within normal limits slight elevated total bilirubin of 1.9. X-ray shows nonspecific bowel gas pattern when read by radiologist. On my assessment patient is resting comfortably no acute distress. He has a benign abdominal exam with bowel sounds active throughout, nondistended, nontender to palpation, negative Sarabia sign, negative McBurney's point, no CVA tenderness. He is requesting morphine. I discussed with him that morphine was not indicated at this point and we will try GI cocktail. Morphine also likely to worsen patient's constipation. Pt agreeable with plan. Patient also states he is hearing voices. Requesting to speak with EPS RN. Denies SI/HI. Does not appear to be responding to internal stimuli. Pleasant calm and cooperative. EPS consult will be placed to help patient with discharge planning. Pt noted to have microscopic hematuria. He has no CVA TTP or pain, GFR wnl, no RAVEN. Updated patient to this finding and the importance of follow up with urology for recheck of urine. Pt agreeable and understanding of this. Patient seen by EPS RN. Safety planning was done and patient was cleared from psych standpoint. Patient states symptoms have improved w/ GI cocktail. He was able to tolerate PO intake, crackers and akhil mist. Pt directed to maintain clear liquid diet for next 24 hours and use home pepcid or omeprazole as directed, for abdominal pain and follow up w/ GI.. Patient agreeable with discharge at this point. In my medical judgment there is currently no evidence of an immediate life- threatening or surgical condition. Discharge is therefore indicated at this time. Discharge treatment instructions, follow up instructions, and appropriate emergency department return precautions were discussed with the patient and/or medical decision maker. Patient and/or medical decision maker expressed understanding of and agreed with the treatment plan, follow up instructions, and emergency department return precaution. All patient's and/or medical decision maker's questions were answered. Undiagnosed new problem with uncertain prognosis? @ -No Drug Therapy requiring intensive monitoring for toxicity (Heparin, Nitro, Insulin, Cardizem)? @ -No Were any procedures done? @ -No Diagnosis/symptom? @ -Chronic abdominal pain Acute, or Chronic, or Acute on Chronic? @ acute on chronic Uncomplicated (without systemic symptoms) or Complicated (systemic symptoms)? uncomplicated Side effects of treatment? @ -No Exacerbation, Progression, or Severe Exacerbation? @ -No Poses a threat to life or bodily function? How? (Chest pain, [place], [place], pneumonia, PE, COPD, DKA, ARF, appy, cholecystitis, CVA, Diverticulitis, Homicidal, Suicidal, threat to staff... and all critical care pts) @ -No (Kathleen Gupta) - Lab Data Lab Results 08/24/24 08/24/24 08/24/24 Range/Units 14:45 14:45 20:10 WBC 8.2 (3.8-10.6) k/uL RBC 5.47 (4.30-5.90) m/uL Hgb 17.2 (13.0-17.5) gm/dL Hct 49.2 (39.0-53.0) % MCV 89.9 (80.0-100.0) fL MCH 31.5 (25.0-35.0) pg MCHC 35.1 (31.0-37.0) g/dL RDW 13.2 (11.5-15.5) % Plt Count 215 (150-450) k/uL MPV 7.6 Neutrophils % 49 % Lymphocytes % 41 % Monocytes % 7 % Eosinophils % 2 % Basophils % 0 % Neutrophils # 4.0 (1.3-7.7) k/uL Lymphocytes # 3.3 (1.0-4.8) k/uL Monocytes # 0.6 (0-1.0) k/uL Eosinophils # 0.2 (0-0.7) k/uL Basophils # 0.0 (0-0.2) k/uL Sodium 138 (137-145) mmol/L Potassium 3.4 L (3.5-5.1) mmol/L Chloride 105 (98-107) mmol/L Carbon Dioxide 22 (22-30) mmol/L Anion Gap 11 mmol/L BUN 24 H (9-20) mg/dL Creatinine 0.84 (0.66-1.25) mg/dL Est GFR (CKD-EPI)AfAm >90 (>60 ml/min/1.73 sqM) Est GFR (CKD-EPI)NonAf >90 (>60 ml/min/1.73 sqM) Glucose 99 (74-99) mg/dL Calcium 10.4 H (8.4-10.2) mg/dL Total Bilirubin 1.9 H (0.2-1.3) mg/dL AST 25 (17-59) U/L ALT 34 (4-49) U/L Alkaline Phosphatase 100 (38-126) U/L Total Protein 8.2 (6.3-8.2) g/dL Albumin 5.7 H (3.5-5.0) g/dL Amylase 42 (30-110) U/L Lipase 21 L (23-300) U/L Urine Color Yellow Urine Appearance Clear (Clear) Urine pH 6.0 (5.0-8.0) Ur Specific Estill 1.028 (1.001-1.035) Urine Protein 1+ H (Negative) Urine Glucose (UA) Negative (Negative) Urine Ketones Trace H (Negative) Urine Blood Trace H (Negative) Urine Nitrite Negative (Negative) Urine Bilirubin Negative (Negative) Urine Urobilinogen <2.0 (<2.0) mg/dL Ur Leukocyte Esterase Negative (Negative) Urine RBC 10 H (0-5) /hpf Urine WBC 11 H (0-5) /hpf Ur Squamous Epith Cells 1 (0-4) /hpf Urine Mucus Many H (None) /hpf Disposition <Annel Chacon - Last Filed: 08/24/24 15:10> Is patient prescribed a controlled substance at d/c from ED?: No <Kathleen Gupta - Last Filed: 08/25/24 17:38> Clinical Impression: Hematuria, Chronic abdominal pain, Auditory hallucinations Disposition: HOME SELF-CARE Condition: Good Instructions (If sedation given, give patient instructions): Abdominal Pain (ED) Additional Instructions: Every disease is a spectrum and a small chance still exists that a serious condition could develop, for this reason, please monitor yourself closely for new, changing or worsening symptoms, symptoms that do not improve in the next 72 hours, if you begin vomiting blood, fever, inability to tolerate/keep down fluids or your medications, inability to follow up with outpatient providers as instructed and should you experience these symptoms or should you have any further concerns for your wellbeing please return to the ED or call 911 immediately. Please maintain a clear liquid diet for the next 24 hours and progress as tolerated. PLEASE call your primary care physician as soon as possible to arrange / discuss plan for followup appointment. Appointment in the next 1-3 days is strongly encouraged if possible. PLEASE let us know here before you leave if there is anything further we can do to be of any assistance. Take care and feel Better! Referrals: Sumeet Mejias III, MD [Primary Care Provider] - 1-2 days Melissa Mendoza MD [STAFF PHYSICIAN] - As Soon As Possible (IBS, chronic abdominal pain ) Jerry Diaz MD [STAFF PHYSICIAN] - As Soon As Possible (Microscopic hematuria)
[2024-08-24 15:11] LABS: ALT 34 U/L (4-49); AST 25 U/L (17-59); African American GFR (CKD) >90 (>60 ml/min/1.73 sqM); Albumin 5.7 g/dL (3.5-5.0); Alkaline Phosphatase 100 U/L (38-126); Amylase 42 U/L (30-110); Anion Gap 11 mmol/L; Blood Urea Nitrogen 24 mg/dL (9-20); Calcium 10.4 mg/dL (8.4-10.2); Carbon Dioxide 22 mmol/L (22-30); Chloride 105 mmol/L (98-107); Glucose 99 mg/dL (74-99); Lipase 21 U/L (23-300); Non-African American GFR(CKD) >90 (>60 ml/min/1.73 sqM); Potassium 3.4 mmol/L (3.5-5.1); Sodium 138 mmol/L (137-145); Total Bilirubin 1.9 mg/dL (0.2-1.3); Total Protein 8.2 g/dL (6.3-8.2)
--- NOTE | 2024-08-24 15:40 | XR ---
EXAMINATION TYPE: XR KUB DATE OF EXAM: 08/24/2024 3:35 PM COMPARISON: 07/30/2024 CLINICAL INDICATION: Male, 34 years old with history of abdominal pain; [facility] TECHNIQUE: One radiographic view of the abdomen was obtained. FINDINGS: The bowel gas pattern is nonspecific without dilated loops of small or large bowel. . Fecal material and gas are demonstrated throughout the colon and rectum. There is no evidence for organome rivera or pneumoperitoneum. The osseous structures are intact. No abnormal calcifications are present . IMPRESSION: Nonspecific bowel gas pattern without radiographic evidence for acute process. [facility], Workstation: [facility], 08/24/2024 3:38 PM
[2024-08-24] MEDS: SUCRALFATE 1 GM TAB PO STA (19:24)
[2024-08-24] MEDS: MAG HYDROX/AL HYDROX/SIMETH 30 ML CUP PO PRN (19:24)
[2024-08-24] MEDS: FAMOTIDINE 20 MG TAB PO STA (19:24)
[2024-08-24 20:27] LABS: Appearance,Urine Clear (Clear); Bilirubin,Urine Negative (Negative); Blood,Urine Trace (Negative); Color,Urine Yellow; Glucose,Urine (UA) Negative (Negative); Ketones,Urine Trace (Negative); Leukocyte Esterase,Urine Negative (Negative); Mucus,Urine Many /hpf; Nitrite,Urine Negative (Negative); Protein,Urine 1+ (Negative); RBC,Urine 10 /hpf (0-5); Specific Gravity,Urine 1.028 (1.001-1.035); Squamous Epithelial Cell,Urine 1 /hpf (0-4); Urobilinogen,Urine <2.0 mg/dL (<2.0); WBC,Urine 11 /hpf (0-5)
== END 2024-08-24 23:11 | disposition home or self-care (01) ==
LOC: EC 14:07
DX: G89.29 Other chronic pain (principal); R10.9 Unspecified abdominal pain; R44.0 Auditory hallucinations; R31.9 Hematuria, unspecified; Z87.891 Personal history of nicotine dependence; Z88.8 Allergy status to other drugs, medicaments and biological substances
CPT/HCPCS: 36415; 74018; 80053; 81001; 82150; 83690; 85025; 99284

== ENCOUNTER 2024-08-26 05:30 | Emergency (ER) | payer OTHER ==
[2024-08-26 05:37] VITALS: RESP 18
--- NOTE | 2024-08-26 06:08 | ED ---
Psych HPI - General Chief Complaint: Psychiatric Symptoms Stated Complaint: Mental health Time Seen by Provider: 08/26/24 06:07 Source: patient, RN notes reviewed Mode of arrival: ambulatory - History of Present Illness Initial Comments: 34-year-old male presenting for mental health evaluation. States he has a history of OCD and schizophrenia and has been suffering panic attacks lately and frequently washing his hands due to his OCD. Denies suicidal or homicidal ideation. No other medical complaints. - Related Data Home Medications Medication Instructions Recorded Confirmed Nicotine 21Mg/24Hr Patch [Habitrol] 1 patch TRANSDERM HS 07/18/24 07/19/24 Previous Rx's Medication Instructions Recorded ALPRAZolam [Xanax] 0.5 mg PO TID PRN #9 tablet 07/18/24 Nicotine 14Mg/24Hr Patch [Habitrol] 1 patch TRANSDERM DAILY patch 07/21/24 Omeprazole [PriLOSEC] 20 mg PO AC-BRKFST 30 Days #30 cap 07/21/24 Ziprasidone [Geodon] 20 mg PO 1700 30 Days #30 cap 07/21/24 fluvoxaMINE MALEATE 50 mg PO BID 30 Days #60 tab 07/21/24 lamoTRIgine [LaMICtal] 100 mg PO DAILY 30 Days #30 tab 07/21/24 Loperamide HCl [Imodium A-D] 2 mg PO ONCE #30 tablet 07/29/24 Simethicone [Gas-X] 125 mg PO QID #40 capsule 07/30/24 Allergies Allergy/AdvReac Type Severity Reaction Status Date / Time aripiprazole [From Abilify] Allergy Unknown Agitation Verified 08/26/24 05:38 cariprazine [From Vraylar] Allergy Unknown Agitation Verified 08/26/24 05:38 citalopram [From Celexa] Allergy Unknown Agitation Verified 08/26/24 05:38 divalproex sodium Allergy Unknown Agitation Verified 08/26/24 05:38 [From Depakote] paroxetine [From Paxil] Allergy Unknown Agitation Verified 08/26/24 05:38 sertraline [From Zoloft] Allergy Unknown Agitation Verified 08/26/24 05:38 phenobarbital AdvReac Severe Rapid Verified 08/26/24 05:38 Heart Rate zolpidem tartrate AdvReac Unknown Altered Verified 08/26/24 05:38 [From Ambien] Mental Status estropipate [From Ogen 2.5] AdvReac Twitching Verified 08/26/24 05:38 of Legs haloperidol [From Haldol] AdvReac Agitation Verified 08/26/24 05:38 ketorolac [From Toradol] AdvReac Unknown Verified 08/26/24 05:38 lorazepam [From Ativan] AdvReac Hallucinati Verified 08/26/24 05:38 ons methylprednisolone AdvReac Altered Verified 08/26/24 05:38 [From Solu-Medrol] Mental Status ondansetron [From Zofran] AdvReac Unknown Verified 08/26/24 05:38 Review of Systems ROS Statement: Those systems with pertinent positive or pertinent negative responses have been documented in the HPI. ROS Other: All systems not noted in ROS Statement are negative. 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 PT IS ABLE TO MAKE DECISIONS FOR HIMSELF History of Any Multi-Drug Resistant Organisms: None Reported Past Surgical History: Tonsillectomy Additional Past Surgical History / Comment(s): wisdom teeth removed. Past Anesthesia/Blood Transfusion Reactions: No Reported Reaction Additional Past Anesthesia/Blood Transfusion Reaction / Comment(s): NEVER HAD BLOOD TRANSFUSION Past Psychological History: ADD/ADHD, Anxiety, Bipolar, Depression, PTSD Smoking Status: Former smoker Past Alcohol Use History: None Reported Past Drug Use History: Marijuana - Past Family History Sister(s) Additional Family Medical History / Comment(s): He has one sister that is healthy. He also has a 4-year-old daughter that is healthy. Father Family Medical History: GERD/Reflux Additional Family Medical History / Comment(s): DAD HAS ALSO NEVER BEEN AN ALCOHOLIC-RARELY, RARELY DRINKS. Mother Family Medical History: Cancer Additional Family Medical History / Comment(s): MOM STATES SHE HAS NEVER BEEN AN ALCOHOLIC-MOM RARELY ,RARELY DRINKS. HX THYROID CANCER General Exam General appearance: alert, in no apparent distress Head exam: Present: atraumatic, normocephalic, normal inspection Eye exam: Present: normal appearance, PERRL, EOMI. Absent: scleral icterus, conjunctival injection, periorbital swelling Neurological exam: Present: alert, oriented X3 Psychiatric exam: Present: normal affect, normal mood. Absent: homicidal ideation, suicidal ideation Skin exam: Present: warm, dry, intact, normal color. Absent: rash Course Vital Signs 08/26/24 08/26/24 05:35 10:48 Temperature 98.4 F 98.1 F Pulse Rate 75 78 Respiratory 18 18 Rate Blood Pressure 121/72 108/76 O2 Sat by Pulse 96 98 Oximetry Medical Decision Making - Medical Decision Making Was pt. sent in by a medical professional or institution (, PA, INDUSTRIAL GAS FITTER, urgent care, hospital, or detention...) When possible be specific @ -No Did you speak to anyone other than the patient for history (EMS, parent, family, police, friend...)? What history was obtained from this source @ -No Did you review nursing and triage notes (agree or disagree)? Why? @ -I reviewed and agree with nursing and triage notes Were old charts reviewed (outside hosp., previous admission, EMS record, old EKG, old radiological studies, urgent care reports/EKG's, detention records)? Report findings @ -No old charts were reviewed Differential Diagnosis (chest pain, altered mental status, abdominal pain women, abdominal pain men, vaginal bleeding, weakness, fever, dyspnea, syncope, headache, dizziness, GI bleed, back pain, seizure, CVA, palpatations, mental health, musculoskeletal)? @ -Differential Mental Health Depression, anxiety, bipolar, psychosis, schizophrenia, borderline personality, situational depression, adjustment disorder, behavioral disorder, brain tumor, malingering, substance abuse, encephalopathy, medication reaction, dementia, hypothyroidism, degenerative neurologic disorder, lupus.... This is not meant to be all-inclusive list EKG interpreted by me (3pts min.). @ -None X-rays interpreted by me (1pt min.). @ -None done CT interpreted by me (1pt min.). @ -None done U/S interpreted by me (1pt. min.). @ -None done What testing was considered but not performed or refused? (CT, X-rays, U/S, labs)? Why? @ -None What meds were considered but not given or refused? Why? @ -None Did you discuss the management of the patient with other professionals (professionals i.e. , PA, INDUSTRIAL GAS FITTER, lab, RT, psych nurse, protective services social worker, interior surface insulation worker, teacher, retirement officer, business case analyst)? Give summary @ -I spoke with EPS who recommends discharge with safety plan Was smoking cessation discussed for >3mins.? @ -No Was critical care preformed (if so, how long)? @ -No Were there social determinants of health that impacted care today? How? (Homelessness, low income, unemployed, alcoholism, drug addiction, transportation, low edu. Level, literacy, decrease access to med. care, residential, rehab)? @ -No Was there de-escalation of care discussed even if they declined (Discuss DNR or withdrawal of care, Hospice)? DNR status @ -No What co-morbidities impacted this encounter? (DM, HTN, Smoking, COPD, CAD, Cancer, CVA, ARF, Chemo, Hep., AIDS, mental health diagnosis, sleep apnea, morbid obesity)? @ -None Was patient admitted / discharged? Hospital course, mention meds given and route, prescriptions, significant lab abnormalities, going to OR and other pertinent info. @ -Discharge. This is a 34-year-old male presenting for mental health evaluation. Patient believes he is having an OCD exacerbation. Denies suicidal or homicidal ideation. No medical complaints at this time. Patient was medically cleared to be seen by EPS. EPS recommends discharge with safety plan. I agree with this plan. Case was discussed with my ED attending Dr. Leslie. Undiagnosed new problem with uncertain prognosis? @ -No Drug Therapy requiring intensive monitoring for toxicity (Heparin, Nitro, Insulin, Cardizem)? @ -No Were any procedures done? @ -No Diagnosis/symptom? @ -OCD Acute, or Chronic, or Acute on Chronic? @ -Acute Uncomplicated (without systemic symptoms) or Complicated (systemic symptoms)? @ -Uncomplicated Side effects of treatment? @ -No Exacerbation, Progression, or Severe Exacerbation? @ -No Poses a threat to life or bodily function? How? (Chest pain, [place], [place], pneumonia, PE, COPD, DKA, ARF, appy, cholecystitis, CVA, Diverticulitis, Homicidal, Suicidal, threat to staff... and all critical care pts) @ -Not at this time - Lab Data Lab Results 08/26/24 Range/Units 06:17 Urine Opiates Screen Not Detected (NotDetected) Ur Oxycodone Screen Not Detected (NotDetected) Urine Methadone Screen Not Detected (NotDetected) Ur Barbiturates Screen Not Detected (NotDetected) U Tricyclic Antidepress Not Detected (NotDetected) Ur Phencyclidine Scrn Not Detected (NotDetected) Ur Amphetamines Screen Not Detected (NotDetected) U Methamphetamines Scrn Not Detected (NotDetected) U Benzodiazepines Scrn Detected H (NotDetected) Urine Cocaine Screen Not Detected (NotDetected) U Marijuana (THC) Screen Detected H (NotDetected) Disposition Clinical Impression: OCD (obsessive compulsive disorder) Disposition: HOME SELF-CARE Condition: Stable Additional Instructions: Please return to the Emergency Department if symptoms worsen or any other concerns. Is patient prescribed a controlled substance at d/c from ED?: No Referrals: Sumeet Mejias III, MD [Primary Care Provider] - 1-2 days Time of Disposition: 10:25
[2024-08-26 06:49] LABS: Amphetamine Screen,Urine Not Detected (NotDetected); Barbiturate Screen,Urine Not Detected (NotDetected); Benzodiazepines Screen,Urine Detected (NotDetected); Cocaine Screen,Urine Not Detected (NotDetected); Methadone Screen, Urine Not Detected (NotDetected); Opiate Screen,Urine Not Detected (NotDetected); Oxycodone Screen, Urine Not Detected (NotDetected); Phencyclidine Screen,Urine Not Detected (NotDetected); Tricyclic Antidepressant,Urine Not Detected (NotDetected); Urn Cannabinoid Scrn Detected (NotDetected)
[2024-08-26 10:52] VITALS: BP 108/76; PULSE 78; TEMP 98.1
== END 2024-08-26 10:52 | disposition home or self-care (01) ==
LOC: EC 05:30
DX: F42.9 Obsessive-compulsive disorder, unspecified (principal); F12.90 Cannabis use, unspecified, uncomplicated; Z87.891 Personal history of nicotine dependence; Z88.8 Allergy status to other drugs, medicaments and biological substances
CPT/HCPCS: 80306; 82075; 99285

== ENCOUNTER 2024-09-03 06:40 | Emergency (ER) | payer OTHER ==
[2024-09-03 07:25] VITALS: BP 102/68; PULSE 97; RESP 20; TEMP 98
--- NOTE | 2024-09-03 08:17 | ED ---
General Adult HPI - General Chief complaint: Anxiety Stated complaint: Anxiety Time Seen by Provider: 09/03/24 07:58 Source: patient, family, RN notes reviewed, old records reviewed Mode of arrival: ambulatory Limitations: no limitations - History of Present Illness Initial comments: Patient is a 34-year-old male with past medical history remarkable for anxiety, IBS, who presents with his mother over concern for anxiety. Denies any hallucinations, suicidal or homicidal ideations, attempts, plans. States that he is on Xanax at home however Valium tends to work better for the patient. They are not actively following up with their PCP later this week however patient's anxiety has been severely worsened over the last 2 days. Patient's mother is asking for short-term prescription of Valium as this does work for the patient better and the plan is to switch him over to this medication. Patient denies any other acute complaints. Does endorse recent worsening stressors. Presents for further evaluation at this time. - Related Data Home Medications Medication Instructions Recorded Confirmed Nicotine 21Mg/24Hr Patch [Habitrol] 1 patch TRANSDERM HS 07/18/24 07/19/24 Previous Rx's Medication Instructions Recorded ALPRAZolam [Xanax] 0.5 mg PO TID PRN #9 tablet 07/18/24 Nicotine 14Mg/24Hr Patch [Habitrol] 1 patch TRANSDERM DAILY patch 07/21/24 Omeprazole [PriLOSEC] 20 mg PO AC-BRKFST 30 Days #30 cap 07/21/24 Ziprasidone [Geodon] 20 mg PO 1700 30 Days #30 cap 07/21/24 fluvoxaMINE MALEATE 50 mg PO BID 30 Days #60 tab 07/21/24 lamoTRIgine [LaMICtal] 100 mg PO DAILY 30 Days #30 tab 07/21/24 Loperamide HCl [Imodium A-D] 2 mg PO ONCE #30 tablet 07/29/24 Simethicone [Gas-X] 125 mg PO QID #40 capsule 07/30/24 diazePAM [Valium] 2 mg PO BID PRN 3 Days #6 tab 09/03/24 Allergies Allergy/AdvReac Type Severity Reaction Status Date / Time aripiprazole [From Abilify] Allergy Unknown Agitation Verified 09/03/24 07:25 cariprazine [From Vraylar] Allergy Unknown Agitation Verified 09/03/24 07:25 citalopram [From Celexa] Allergy Unknown Agitation Verified 09/03/24 07:25 divalproex sodium Allergy Unknown Agitation Verified 09/03/24 07:25 [From Depakote] paroxetine [From Paxil] Allergy Unknown Agitation Verified 09/03/24 07:25 sertraline [From Zoloft] Allergy Unknown Agitation Verified 09/03/24 07:25 phenobarbital AdvReac Severe Rapid Verified 09/03/24 07:25 Heart Rate zolpidem tartrate AdvReac Unknown Altered Verified 09/03/24 07:25 [From Ambien] Mental Status estropipate [From Ogen 2.5] AdvReac Twitching Verified 09/03/24 07:25 of Legs haloperidol [From Haldol] AdvReac Agitation Verified 09/03/24 07:25 ketorolac [From Toradol] AdvReac Unknown Verified 09/03/24 07:25 lorazepam [From Ativan] AdvReac Hallucinati Verified 09/03/24 07:25 ons methylprednisolone AdvReac Altered Verified 09/03/24 07:25 [From Solu-Medrol] Mental Status ondansetron [From Zofran] AdvReac Unknown Verified 09/03/24 07:25 Review of Systems ROS Statement: Those systems with pertinent positive or pertinent negative responses have been documented in the HPI. Review of Systems: CONST: Denies fever EYES: Denies blurry vision ENT: Denies nasal congestion C/V: Denies Chest pain RESP: Denies shortness of breath GI: Denies abdominal pain : Denies dysuria SKIN: Denies rash. MSK: Denies joint pain. NEURO: Denies headache ROS Other: All systems not noted in ROS Statement are negative. 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 PT IS ABLE TO MAKE DECISIONS FOR HIMSELF History of Any Multi-Drug Resistant Organisms: None Reported Past Surgical History: Tonsillectomy Additional Past Surgical History / Comment(s): wisdom teeth removed. Past Anesthesia/Blood Transfusion Reactions: No Reported Reaction Additional Past Anesthesia/Blood Transfusion Reaction / Comment(s): NEVER HAD BLOOD TRANSFUSION Past Psychological History: ADD/ADHD, Anxiety, Bipolar, Depression, PTSD Smoking Status: Former smoker Past Alcohol Use History: None Reported Past Drug Use History: Marijuana - Past Family History Sister(s) Additional Family Medical History / Comment(s): He has one sister that is healthy. He also has a 4-year-old daughter that is healthy. Father Family Medical History: GERD/Reflux Additional Family Medical History / Comment(s): DAD HAS ALSO NEVER BEEN AN ALCOHOLIC-RARELY, RARELY DRINKS. Mother Family Medical History: Cancer Additional Family Medical History / Comment(s): MOM STATES SHE HAS NEVER BEEN AN ALCOHOLIC-MOM RARELY ,RARELY DRINKS. HX THYROID CANCER General Exam - General Exam Comments Initial Comments: General: Appears anxious. HEAD: Normal with no signs of head trauma. EYES: EOMI. pupils are 3 mm and equal bilaterally. ENT: Hearing grossly intact. RESPIRATORY: No respiratory distress. Clear breath sounds bilaterally. No hypoxia. C/V: Regular rate and rhythm. S1 and S2 auscultated. Peripheral pulses 2+ and intact throughout. ABD: Abdomen is nondistended. No abdominal tenderness to palpation. EXT: No obvious deformity. SKIN: No rashes or lesions observed on exposed skin. NEURO: Alert and oriented. No obvious focal deficits. Limitations: no limitations Course Vital Signs 09/03/24 07:23 Temperature 98 F Pulse Rate 97 Respiratory 20 Rate Blood Pressure 102/68 O2 Sat by Pulse 99 Oximetry Medical Decision Making - Medical Decision Making Was pt. sent in by a medical professional or institution (LINO Patel, CEMENTER MACHINE APPLICATOR, urgent care, hospital, or group home...) When possible be specific @ -No Did you speak to anyone other than the patient for history (EMS, parent, family, police, friend...)? What history was obtained from this source @ -Patient's mother is the primary historian for the patient. Did you review nursing and triage notes (agree or disagree)? Why? @ -I reviewed and agree with nursing and triage notes Were old charts reviewed (outside hosp., previous admission, EMS record, old EKG, old radiological studies, urgent care reports/EKG's, group home records)? Report findings @ -No old charts were reviewed Differential Diagnosis (chest pain, altered mental status, abdominal pain women, abdominal pain men, vaginal bleeding, weakness, fever, dyspnea, syncope, headache, dizziness, GI bleed, back pain, seizure, CVA, palpatations, mental health, musculoskeletal)? @ -Anxiety, panic attacks, medication refill. This list is not all inclusive. EKG interpreted by me (3pts min.). @ -None done X-rays interpreted by me (1pt min.). @ -None done CT interpreted by me (1pt min.). @ -None done U/S interpreted by me (1pt. min.). @ -None done What testing was considered but not performed or refused? (CT, X-rays, U/S, labs )? Why? @ -None What meds were considered but not given or refused? Why? @ -None Did you discuss the management of the patient with other professionals (professionals i.e. , PA, CEMENTER MACHINE APPLICATOR, lab, RT, psych nurse, long term care social worker, java technical architect, teacher, public safety officer, bilingual patient support caseworker)? Give summary @ -No Was smoking cessation discussed for >3mins.? @ -No Was critical care preformed (if so, how long)? @ -No Were there social determinants of health that impacted care today? How? (Homelessness, low income, unemployed, alcoholism, drug addiction, transportation, low edu. Level, literacy, decrease access to med. care, half-way, rehab)? @ -No Was there de-escalation of care discussed even if they declined (Discuss DNR or withdrawal of care, Hospice)? DNR status @ -No What co-morbidities impacted this encounter? (DM, HTN, Smoking, COPD, CAD, Cancer, CVA, ARF, Chemo, Hep., AIDS, mental health diagnosis, sleep apnea, morbid obesity)? @ -None Was patient admitted / discharged? Hospital course, mention meds given and route, prescriptions, significant lab abnormalities, going to OR and other pertinent info. @ -Based on the patient's presentation and physical exam, presents seeking alternative medication for his anxiety and panic. He has used Valium in the past and patient and mother requesting a short-term prescription till they can follow-up with his PCP after New Year's. Patient denies any suicidal or homicidal ideations, attempts, plans. He is not a danger to himself or others. Does not require psychiatric evaluation. Discussed options with the patient they are amenable to receiving a dose of Valium prior to discharge as well as a short-term prescription for 3 days. Vital signs currently within acceptable limits. No further workup required at this time. They are in agreement this pl an. Strict return precautions discussed. I will provide the patient with a prescription for Valium. I instructed the patient to follow up with their PCP in the next 1-3 days.. I explained that the patient should return to the emergency department if they experience any worsening symptoms. Strict return precautions were discussed with the patient. The patient expressed understanding of these instructions. I answered all questions that the patient had. The patient was discharged home in good condition with their prescriptions and follow up information. Undiagnosed new problem with uncertain prognosis? @ -No Drug Therapy requiring intensive monitoring for toxicity (Heparin, Nitro, Insulin, Cardizem)? @ -No Were any procedures done? @ -No Diagnosis/symptom? @ -Anxiety, panic attacks, medication refill Acute, or Chronic, or Acute on Chronic? @ -Acute on chronic Uncomplicated (without systemic symptoms) or Complicated (systemic symptoms)? @ -Uncomplicated Side effects of treatment? @ -No Exacerbation, Progression, or Severe Exacerbation? @ -No Poses a threat to life or bodily function? How? (Chest pain, [place], [place], pneumonia, PE, COPD, DKA, ARF, appy, cholecystitis, CVA, Diverticulitis, Homicidal, Suicidal, threat to staff... and all critical care pts) @ -Unlikely at this time Disposition Clinical Impression: Panic attack, Anxiety, Medication refill Disposition: HOME SELF-CARE Condition: Good Instructions (If sedation given, give patient instructions): Generalized Anxiety Disorder (ED) Additional Instructions: Follow-up with your PCP for further evaluation for switch to Valium as your anxiolytic medication. Return to the emergency department if worsening symptoms. Prescriptions: diazePAM [Valium] 2 mg PO BID PRN 3 Days #6 tab PRN Reason: Anxiety Is patient prescribed a controlled substance at d/c from ED?: Yes When asked, does pt state using other controlled substances?: Yes If prescribed controlled substance>3 days was MAPS reviewed?: Prescribed <3 Days Referrals: Sumeet Mejias III, MD [Primary Care Provider] - 1-2 days Time of Disposition: 08:15
[2024-09-03] MEDS: diazePAM 2 MG TAB PO STA (08:19)
== END 2024-09-03 08:26 | disposition home or self-care (01) ==
LOC: EC 06:40
DX: F41.0 Panic disorder [episodic paroxysmal anxiety] (principal); Z76.0 Encounter for issue of repeat prescription; Z88.8 Allergy status to other drugs, medicaments and biological substances; Z88.1 Allergy status to other antibiotic agents; Z87.891 Personal history of nicotine dependence
CPT/HCPCS: 99282

== ENCOUNTER 2024-09-05 00:44 | Emergency (ER) | payer OTHER ==
[2024-09-05 00:50] VITALS: BP 133/84; PULSE 69; RESP 16; TEMP 98.1
--- NOTE | 2024-09-05 00:57 | ED ---
General Adult HPI - General Chief complaint: Abdominal Pain Stated complaint: Constipation Time Seen by Provider: 09/05/24 00:52 Source: patient, RN notes reviewed, old records reviewed Mode of arrival: ambulatory Limitations: no limitations - History of Present Illness Initial comments: 34 old male presenting with chief complaint of constipation. Patient states that this has been a chronic issue and requests laxative. No abdominal pain. No vomiting. No fever. - Related Data Home Medications Medication Instructions Recorded Confirmed Nicotine 21Mg/24Hr Patch [Habitrol] 1 patch TRANSDERM HS 07/18/24 07/19/24 Previous Rx's Medication Instructions Recorded ALPRAZolam [Xanax] 0.5 mg PO TID PRN #9 tablet 07/18/24 Nicotine 14Mg/24Hr Patch [Habitrol] 1 patch TRANSDERM DAILY patch 07/21/24 Omeprazole [PriLOSEC] 20 mg PO AC-BRKFST 30 Days #30 cap 07/21/24 Ziprasidone [Geodon] 20 mg PO 1700 30 Days #30 cap 07/21/24 fluvoxaMINE MALEATE 50 mg PO BID 30 Days #60 tab 07/21/24 lamoTRIgine [LaMICtal] 100 mg PO DAILY 30 Days #30 tab 07/21/24 Loperamide HCl [Imodium A-D] 2 mg PO ONCE #30 tablet 07/29/24 Simethicone [Gas-X] 125 mg PO QID #40 capsule 07/30/24 diazePAM [Valium] 2 mg PO BID PRN 3 Days #6 tab 09/03/24 Allergies Allergy/AdvReac Type Severity Reaction Status Date / Time aripiprazole [From Abilify] Allergy Unknown Agitation Verified 09/03/24 07:25 cariprazine [From Vraylar] Allergy Unknown Agitation Verified 09/03/24 07:25 citalopram [From Celexa] Allergy Unknown Agitation Verified 09/03/24 07:25 divalproex sodium Allergy Unknown Agitation Verified 09/03/24 07:25 [From Depakote] paroxetine [From Paxil] Allergy Unknown Agitation Verified 09/03/24 07:25 sertraline [From Zoloft] Allergy Unknown Agitation Verified 09/03/24 07:25 phenobarbital AdvReac Severe Rapid Verified 09/03/24 07:25 Heart Rate zolpidem tartrate AdvReac Unknown Altered Verified 09/03/24 07:25 [From Ambien] Mental Status estropipate [From Ogen 2.5] AdvReac Twitching Verified 09/03/24 07:25 of Legs haloperidol [From Haldol] AdvReac Agitation Verified 09/03/24 07:25 ketorolac [From Toradol] AdvReac Unknown Verified 09/03/24 07:25 lorazepam [From Ativan] AdvReac Hallucinati Verified 09/03/24 07:25 ons methylprednisolone AdvReac Altered Verified 09/03/24 07:25 [From Solu-Medrol] Mental Status ondansetron [From Zofran] AdvReac Unknown Verified 09/03/24 07:25 Review of Systems ROS Statement: Those systems with pertinent positive or pertinent negative responses have been documented in the HPI. ROS Other: All systems not noted in ROS Statement are negative. 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 PT IS ABLE TO MAKE DECISIONS FOR HIMSELF,IBS History of Any Multi-Drug Resistant Organisms: None Reported Past Surgical History: Tonsillectomy Additional Past Surgical History / Comment(s): wisdom teeth removed. Past Anesthesia/Blood Transfusion Reactions: No Reported Reaction Additional Past Anesthesia/Blood Transfusion Reaction / Comment(s): NEVER HAD BLOOD TRANSFUSION Past Psychological History: ADD/ADHD, Anxiety, Bipolar, Depression, PTSD Smoking Status: Former smoker Past Alcohol Use History: None Reported Past Drug Use History: Marijuana - Past Family History Sister(s) Additional Family Medical History / Comment(s): He has one sister that is healthy. He also has a 4-year-old daughter that is healthy. Father Family Medical History: GERD/Reflux Additional Family Medical History / Comment(s): DAD HAS ALSO NEVER BEEN AN ALCOHOLIC-RARELY, RARELY DRINKS. Mother Family Medical History: Cancer Additional Family Medical History / Comment(s): MOM STATES SHE HAS NEVER BEEN AN ALCOHOLIC-MOM RARELY ,RARELY DRINKS. HX THYROID CANCER General Exam Limitations: no limitations General appearance: alert, in no apparent distress Head exam: Present: atraumatic, normocephalic Eye exam: Present: normal appearance, PERRL Respiratory exam: Present: normal lung sounds bilaterally. Absent: respiratory distress, wheezes Cardiovascular Exam: Present: regular rate, normal rhythm GI/Abdominal exam: Present: soft. Absent: distended, tenderness, guarding Extremities exam: Present: normal inspection, normal capillary refill Neurological exam: Present: alert, oriented X3, CN II-XII intact, normal gait. Absent: motor sensory deficit Psychiatric exam: Present: normal affect, normal mood Skin exam: Present: warm, dry, intact. Absent: cyanosis, diaphoretic Course Vital Signs 09/05/24 00:46 Temperature 98.1 F Pulse Rate 69 Respiratory 16 Rate Blood Pressure 133/84 O2 Sat by Pulse 98 Oximetry Medical Decision Making - Medical Decision Making Was pt. sent in by a medical professional or institution (LINO Patel, ZIPPER TRIMMER, urgent care, hospital, or halfway...) When possible be specific @ -No Did you speak to anyone other than the patient for history (EMS, parent, family, police, friend...)? What history was obtained from this source @ -No Did you review nursing and triage notes (agree or disagree)? Why? @ -I reviewed and agree with nursing and triage notes Were old charts reviewed (outside hosp., previous admission, EMS record, old EKG, old radiological studies, urgent care reports/EKG's, halfway records)? Report findings @ -No old charts were reviewed Differential Diagnosis: Small bowel obstruction, constipation, colonic mass fecal stasis EKG interpreted by me (3pts min.). @ -As above X-rays interpreted by me (1pt min.). @ -None done CT interpreted by me (1pt min.). @ -None done U/S interpreted by me (1pt. min.). @ -None done What testing was considered but not performed or refused? (CT, X-rays, U/S, labs)? Why? @ -None What meds were considered but not given or refused? Why? @ -None Did you discuss the management of the patient with other professionals (professionals i.e. LINO Patel, ZIPPER TRIMMER, lab, RT, psych nurse, face worker, outbound supervisor, teacher, correction officer penitentiary, housing case manager)? Give summary @ -No Was smoking cessation discussed for >3mins.? @ -No Was critical care preformed (if so, how long)? @ -No Were there social determinants of health that impacted care today? How? (Homelessness, low income, unemployed, alcoholism, drug addiction, transportation, low edu. Level, literacy, decrease access to med. care, fci, rehab)? @ -No Was there de-escalation of care discussed even if they declined (Discuss DNR or withdrawal of care, Hospice)? DNR status @ -No What co-morbidities impacted this encounter? (DM, HTN, Smoking, COPD, CAD, Cancer, CVA, ARF, Chemo, Hep., AIDS, mental health diagnosis, sleep apnea, morbid obesity)? @ -[Chronic abdominal issues including constipation Was patient admitted / discharged? Hospital course, mention meds given and route, prescriptions, significant lab abnormalities, going to OR and other pertinent info. @ -Patient requesting laxative for constipation. Given a bottle of magnesium citrate, instructed to drink one third to half of the bottle. He is instructed on high-fiber diet and increased water intake. Return parameters discussed. Patient should follow-up with his primary care provider as this is a chronic issue he may require outpatient colonoscopy. Undiagnosed new problem with uncertain prognosis? @ -[No Drug Therapy requiring intensive monitoring for toxicity (Heparin, Nitro, Insulin, Cardizem)? @ -No Were any procedures done? @ -No Diagnosis/symptom? @Constipation Acute, or Chronic, or Acute on Chronic? @ -Chronic Uncomplicated (without systemic symptoms) or Complicated (systemic symptoms)? @ -Default Side effects of treatment? @ -No Exacerbation, Progression, or Severe Exacerbation? @ -No Poses a threat to life or bodily function? How? (Chest pain, USA, MD, pneumonia, PE, COPD, DKA, ARF, appy, cholecystitis, CVA, Diverticulitis, Homicidal, Suicidal, threat to staff... and all critical care pts) @ -No Disposition Clinical Impression: Constipation Disposition: HOME SELF-CARE Condition: Fair Instructions (If sedation given, give patient instructions): Constipation (ED), High Fiber Diet (ED) Additional Instructions: Please drink 1/3 of the bottle of magnesium citrate you were provided. Is patient prescribed a controlled substance at d/c from ED?: No Referrals: Sumeet Mejias III, MD [Primary Care Provider] - 1-2 days Time of Disposition: 00:57
[2024-09-05] MEDS: MAGNESIUM CITRATE 296 ML BOTTLE PO ONE (01:28)
== END 2024-09-05 01:30 | disposition home or self-care (01) ==
LOC: EC 00:44
DX: K59.00 Constipation, unspecified (principal); Z87.891 Personal history of nicotine dependence; Z88.8 Allergy status to other drugs, medicaments and biological substances
CPT/HCPCS: 99284

== ENCOUNTER 2024-09-21 12:14 | Emergency (ER) | payer OTHER ==
--- NOTE | 2024-09-21 13:11 | ED ---
General Adult HPI - General Chief complaint: Nausea/Vomiting/Diarrhea Stated complaint: nvd/unable to take psych meds Time Seen by Provider: 09/21/24 12:29 Source: patient, family Mode of arrival: ambulatory Limitations: no limitations - History of Present Illness Initial comments: Dictation was produced using [employer] dictation software. please excuse any g rammatical, word or spelling errors. Chief Complaint: 34-year-old male with abdominal pain History of Present Illness: Patient is 34-year-old male with multiple psychiatric illnesses and recently diagnosed irritable bowel syndrome states that for the last couple days he has been having worsening pain, IBS flare. Patient has evening nausea vomiting diarrhea. Nonbilious nonbloody emesis and d iarrhea. Patient unable to tolerate his home medications. Patient has been exposed to family who had gastroenteritis type symptoms The ROS documented in this emergency department record has been reviewed and confirmed by me. Those systems with pertinent positive or negative responses have been documented in the HPI. All other systems are other negative and/or noncontributory. - Related Data Home Medications Medication Instructions Recorded Confirmed Nicotine 21Mg/24Hr Patch [Habitrol] 1 patch TRANSDERM HS 07/18/24 07/19/24 Previous Rx's Medication Instructions Recorded ALPRAZolam [Xanax] 0.5 mg PO TID PRN #9 tablet 07/18/24 Nicotine 14Mg/24Hr Patch [Habitrol] 1 patch TRANSDERM DAILY patch 07/21/24 Omeprazole [PriLOSEC] 20 mg PO AC-BRKFST 30 Days #30 cap 07/21/24 Ziprasidone [Geodon] 20 mg PO 1700 30 Days #30 cap 07/21/24 fluvoxaMINE MALEATE 50 mg PO BID 30 Days #60 tab 07/21/24 lamoTRIgine [LaMICtal] 100 mg PO DAILY 30 Days #30 tab 07/21/24 Loperamide HCl [Imodium A-D] 2 mg PO ONCE #30 tablet 07/29/24 Simethicone [Gas-X] 125 mg PO QID #40 capsule 07/30/24 diazePAM [Valium] 2 mg PO BID PRN 3 Days #6 tab 09/03/24 Allergies Allergy/AdvReac Type Severity Reaction Status Date / Time [facility]ole [[facility] Allergy Unknown Agitation Verified 09/21/24 12:25 cariprazine [From Vraylar] Allergy Unknown Agitation Verified 09/21/24 12:25 citalopram [From Celexa] Allergy Unknown Agitation Verified 09/21/24 12:25 divalproex sodium Allergy Unknown Agitation Verified 09/21/24 12:25 [From Depakote] paroxetine [From Paxil] Allergy Unknown Agitation Verified 09/21/24 12:25 sertraline [From Zoloft] Allergy Unknown Agitation Verified 09/21/24 12:25 phenobarbital AdvReac Severe Rapid Verified 09/21/24 12:25 Heart Rate zolpidem tartrate AdvReac Unknown Altered Verified 09/21/24 12:25 [From Ambien] Mental Status estropipate [From Ogen 2.5] AdvReac Twitching Verified 09/21/24 12:25 of Legs haloperidol [From Haldol] AdvReac Agitation Verified 09/21/24 12:25 ketorolac [From Toradol] AdvReac Unknown Verified 09/21/24 12:25 lorazepam [From Ativan] AdvReac Hallucinati Verified 09/21/24 12:25 ons methylprednisolone AdvReac Altered Verified 09/21/24 12:25 [From Solu-Medrol] Mental Status ondansetron [From Zofran] AdvReac Unknown Verified 09/21/24 12:25 Review of Systems ROS Statement: Those systems with pertinent positive or pertinent negative responses have been documented in the HPI. ROS Other: All systems not noted in ROS Statement are negative. 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 PT IS ABLE TO MAKE DECISIONS FOR HIMSELF,IBS History of Any Multi-Drug Resistant Organisms: None Reported Past Surgical History: Tonsillectomy Additional Past Surgical History / Comment(s): wisdom teeth removed. Past Anesthesia/Blood Transfusion Reactions: No Reported Reaction Additional Past Anesthesia/Blood Transfusion Reaction / Comment(s): NEVER HAD BLOOD TRANSFUSION Past Psychological History: ADD/ADHD, Anxiety, Bipolar, Depression, PTSD Smoking Status: Current every day smoker Past Alcohol Use History: None Reported - Past Family History Sister(s) Additional Family Medical History / Comment(s): He has one sister that is healthy. He also has a 4-year-old daughter that is healthy. Father Family Medical History: GERD/Reflux Additional Family Medical History / Comment(s): DAD HAS ALSO NEVER BEEN AN ALCOHOLIC-RARELY, RARELY DRINKS. Mother Family Medical History: Cancer Additional Family Medical History / Comment(s): MOM STATES SHE HAS NEVER BEEN AN ALCOHOLIC-MOM RARELY ,RARELY DRINKS. HX THYROID CANCER General Exam - General Exam Comments Initial Comments: PHYSICAL EXAM: General Impression: Alert and oriented x3, not in acute distress HEENT: Normocephalic atraumatic, extra-ocular movements intact, pupils equal and reactive to light bilaterally, mucous membranes moist. Cardiovascular: Heart regular rate and rhythm Chest: Able to complete full sentences, no retractions, no tachypnea Abdomen: abdomen soft, n diffuse palpatory tenderness, non-distended, no organomegaly Musculoskeletal: Pulses present and equal in all extremities, no peripheral edema Motor: no focal deficits noted Neurological: CN II-XII grossly intact, no focal motor or sensory deficits noted Skin: Intact with no visualized rashes Psych: Normal affect and mood Limitations: no limitations Course Vital Signs 09/21/24 09/21/24 12:22 15:06 Temperature 98.8 F Pulse Rate 85 76 Respiratory 17 16 Rate Blood Pressure 140/83 129/84 O2 Sat by Pulse 97 94 L Oximetry Medical Decision Making - Medical Decision Making Was pt. sent in by a medical professional or institution (Dr. PA, DESKTOP MANAGER, urgent care, hospital, or [facility]...) When possible be specific @ -No Did you speak to anyone other than the patient for history (EMS, parent, family, police, friend...)? What history was obtained from this source @ -No Did you review nursing and triage notes (agree or disagree)? Why? @ -I reviewed and agree with nursing and triage notes Were old charts reviewed (outside hosp., previous admission, EMS record, old EKG, old radiological studies, urgent care reports/EKG's, [facility] records)? Report findings @ -No old charts were reviewed Differential Diagnosis (chest pain, altered mental status, abdominal pain women, abdominal pain men, vaginal bleeding, musculoskeletal, weakness, fever, dyspnea, syncope, headache, dizziness, GI bleed, back pain, seizure, CVA, palpatations, m ental health)? @ -Differential abdominal pain med EKG interpreted by me (3pts min.). @ -None done X-rays interpreted by me (1pt min.). @ -None done CT interpreted by me (1pt min.). @ -CT of the abdomen and pelvis shows no acute processes. U/S interpreted by me (1pt. min.). @ -None done What testing was considered but not performed or refused? (CT, X-rays, U/S, labs)? Why? @ -None What meds were considered but not given or refused? Why? @ -None Was smoking cessation discussed for >3mins.? @ -No Were there social determinants of health that impacted care today? How? (Homelessness, low income, unemployed, alcoholism, drug addiction, transportation, low edu. Level, literacy, decrease access to med. care, long-term, rehab)? @ -No Was there de-escalation of care discussed even if they declined (Discuss DNR or withdrawal of care, Hospice)? DNR status @ -No What co-morbidities impacted this encounter? (DM, HTN, Smoking, COPD, CAD, Cancer, CVA, ARF, Chemo, Hep., AIDS, mental health diagnosis, sleep apnea, morbid obesity)? @ -IBS Was patient admitted / discharged? Hospital course, mention meds given and route, prescriptions, significant lab abnormalities, going to OR and other pertinent info. @ -34-year-old male with abdominal pain. He has history of IBS. Vital signs upon arrival are within acceptable limits. Labs imaging shows no acute process. CT abdomen pelvis shows no acute processes. Clinical presentation consistent with IBS flare. Patient given symptomatic treatment and reevaluated bedside 4:33 PM found to be stable to condition. Patient patient feels significantly proved advised follow-up with primary care doctor. Did you discuss the management of the patient with other professionals (professionals i.e. , PA, DESKTOP MANAGER, lab, RT, psych nurse, social media marketing manager, dental claims processor, teacher, court security officer, case fitter)? Give summary @ -No Was critical care preformed (if so, how long)? @ -No Undiagnosed new problem with uncertain prognosis? @ -No Drug Therapy requiring intensive monitoring for toxicity (Heparin, Nitro, Insulin, Cardizem)? @ -No Were any procedures done? @ -No Diagnosis/symptom? Acute, or Chronic, or Acute on Chronic? Uncomplicated (without systemic symptoms) or Complicated (systemic symptoms)? @ -IBS flare Side effects of treatment? @ -No Exacerbation, Progression, or Severe Exacerbation? @ -No Poses a threat to life or bodily function? How? (Chest pain, USA, AL, pneumonia, PE, COPD, DKA, ARF, appy, cholecystitis, CVA, Diverticulitis, Homicidal, Suicidal, threat to staff... and all critical care pts) @ -yes - Lab Data Result diagrams: 09/21/24 13:24 09/21/24 13:24 Lab Results 09/21/24 09/21/24 09/21/24 Range/Units 13:24 13:24 13:24 WBC 7.5 (3.8-10.6) k/uL RBC 5.05 (4.30-5.90) m/uL Hgb 15.6 (13.0-17.5) gm/dL Hct 45.6 (39.0-53.0) % MCV 90.4 (80.0-100.0) fL MCH 30.9 (25.0-35.0) pg MCHC 34.2 (31.0-37.0) g/dL RDW 13.4 (11.5-15.5) % Plt Count 227 (150-450) k/uL MPV 8.0 Neutrophils % 68 % Lymphocytes % 24 % Monocytes % 5 % Eosinophils % 1 % Basophils % 0 % Neutrophils # 5.1 (1.3-7.7) k/uL Lymphocytes # 1.8 (1.0-4.8) k/uL Monocytes # 0.4 (0-1.0) k/uL Eosinophils # 0.1 (0-0.7) k/uL Basophils # 0.0 (0-0.2) k/uL Sodium 142 (137-145) mmol/L Potassium 3.5 (3.5-5.1) mmol/L Chloride 105 (98-107) mmol/L Carbon Dioxide 29 (22-30) mmol/L Anion Gap 8 mmol/L BUN 12 (9-20) mg/dL Creatinine 0.75 (0.66-1.25) mg/dL Est GFR (CKD-EPI)AfAm >90 (>60 ml/min/1.73 sqM) Est GFR (CKD-EPI)NonAf >90 (>60 ml/min/1.73 sqM) Glucose 107 H (74-99) mg/dL Calcium 10.0 (8.4-10.2) mg/dL Total Bilirubin 0.5 (0.2-1.3) mg/dL AST 24 (17-59) U/L ALT 31 (4-49) U/L Alkaline Phosphatase 86 (38-126) U/L Total Protein 7.1 (6.3-8.2) g/dL Albumin 4.7 (3.5-5.0) g/dL Lipase 35 (23-300) U/L Influenza Type A (PCR) Not Detected (Not Detectd) Influenza Type B (PCR) Not Detected (Not Detectd) RSV (PCR) Not Detected (Not Detectd) SARS-CoV-2 (PCR) Not Detected (Not Detectd) Disposition Clinical Impression: Irritable bowel disease Disposition: HOME SELF-CARE Condition: Fair Instructions (If sedation given, give patient instructions): Irritable Bowel Syndrome (ED) Is patient prescribed a controlled substance at d/c from ED?: No Referrals: Sumeet Mejias III, MD [Primary Care Provider] - 1-2 days Time of Disposition: 16:34
[2024-09-21] MEDS: SODIUM CHLORIDE 0.9% 1,000 ML IV STA (13:19)
[2024-09-21] MEDS: MORPHINE SULFATE 4 MG/ML SYRINGE IV STA (13:20)
[2024-09-21 13:47] LABS: Basophils % (A) 0 %; Eosinophils # (A) 0.1 k/uL (0-0.7); Eosinophils % (A) 1 %; HCT 45.6 % (39.0-53.0); HGB 15.6 gm/dL (13.0-17.5); Lymphocytes # (A) 1.8 k/uL (1.0-4.8); Lymphocytes % (A) 24 %; MCH 30.9 pg (25.0-35.0); MCHC 34.2 g/dL (31.0-37.0); MCV 90.4 fL (80.0-100.0); Monocytes # (A) 0.4 k/uL (0-1.0); Monocytes % (A) 5 %; Neutrophils # (A) 5.1 k/uL (1.3-7.7); Neutrophils % (A) 68 %; Platelet Count 227 k/uL (150-450); RBC 5.05 m/uL (4.30-5.90); RDW 13.4 % (11.5-15.5); WBC 7.5 k/uL (3.8-10.6)
[2024-09-21 14:12] LABS: ALT 31 U/L (4-49); AST 24 U/L (17-59); African American GFR (CKD) >90 (>60 ml/min/1.73 sqM); Albumin 4.7 g/dL (3.5-5.0); Alkaline Phosphatase 86 U/L (38-126); Anion Gap 8 mmol/L; Blood Urea Nitrogen 12 mg/dL (9-20); Carbon Dioxide 29 mmol/L (22-30); Chloride 105 mmol/L (98-107); Glucose 107 mg/dL (74-99); Lipase 35 U/L (23-300); Non-African American GFR(CKD) >90 (>60 ml/min/1.73 sqM); Potassium 3.5 mmol/L (3.5-5.1); Sodium 142 mmol/L (137-145); Total Bilirubin 0.5 mg/dL (0.2-1.3); Total Protein 7.1 g/dL (6.3-8.2)
[2024-09-21 14:26] LABS: Influenza A Not Detected (Not Detectd); Influenza B Not Detected (Not Detectd); RSV Not Detected (Not Detectd)
[2024-09-21 15:07] VITALS: RESP 16
[2024-09-21] MEDS: MORPHINE SULFATE 4 MG/ML SYRINGE IVP STA (15:18)
--- NOTE | 2024-09-21 15:25 | CT ---
EXAMINATION TYPE: CT abdomen pelvis w con DATE OF EXAM: 09/21/2024 COMPARISON: 08/06/2024 CLINICAL INDICATION: Male, 34 years old with history of abdominal pain; PHH, abdominal pain, nausea, vomiting TECHNIQUE: Performed without Oral Contrast and with IV Contrast, patient injected with 100 mL of Isovue 300. CT DLP: 800.[address] CTDI: mGy Automated exposure control for dose reduction was used. FINDINGS: The lung bases are clear. The gallbladder is normal without distention, wall thickening, pericholecystic fluid or gallstones. T here is no biliary ductal dilatation. There is no focal mass or organomegaly involving the liver, pancreas, spleen or adrenal glands. There is no solid renal mass or hydronephrosis and there is homogeneous contrast enhancement of the r enal parenchyma. The caliber the abdominal aorta is normal is no retroperitoneal adenopathy or hemorr lashon. The bowel loops are normal in caliber and there is no evidence of dilatation or obstruction. No infla mmatory changes are identified in the bowel wall or mesentery. The appendix is visualized and appears normal without dilatation or inflammation. There is no free intraperitoneal air or fluid. No pelvic mass, free fluid, abscess or adenopathy. The osseous structures and soft tissues are intact. IMPRESSION: No significant abnormality seen. No significant interval change. [facility], Workstation: [id number] 09/21/2024 3:22 PM
[2024-09-21 16:49] VITALS: BP 132/87; PULSE 70; TEMP 98.9
== END 2024-09-21 16:50 | disposition home or self-care (01) ==
LOC: EC 12:14
DX: K58.9 Irritable bowel syndrome, unspecified (principal); F17.200 Nicotine dependence, unspecified, uncomplicated; Z88.6 Allergy status to analgesic agent; Z88.8 Allergy status to other drugs, medicaments and biological substances
CPT/HCPCS: 36415; 80053; 83690; 85025; 87636; 74177; 99284; 96374; 96375; 96376; 96361; J2270; J3360; Q9967

== ENCOUNTER 2024-10-03 18:34 | Emergency (ER) | payer OTHER ==
--- NOTE | 2024-10-03 20:08 | ED ---
General Adult HPI - General Chief complaint: Psychiatric Symptoms Stated complaint: blood in stool, mental break down Time Seen by Provider: 10/03/24 18:51 Source: patient, family, RN notes reviewed Mode of arrival: ambulatory Limitations: no limitations - History of Present Illness Initial comments: This is a 34-year-old male with history of IBS, GERD, GI bleed, MDD, anxiety presenting with guardian for significant abdominal pain (06/15) x 3 days. P atient states pain is diffuse and stabbing with associated blood in diarrhea yesterday and burning with urination. Denies [id number] medication use. Patient also also states his anxiety medication is "not working". Denies SI/HI although guardian states patient expressed desire to hurt himself. Onset/Timin -: days(s) Location: abdomen Severity scale (1-10): 10 Quality: stabbing Consistency: constant Improves with: none Worsens with: none Associated Symptoms: diaphoresis Treatments Prior to Arrival: none - Related Data Home Medications Medication Instructions Recorded Confirmed Nicotine 21Mg/24Hr Patch [Habitrol] 1 patch TRANSDERM HS 07/18/24 07/19/24 Previous Rx's Medication Instructions Recorded ALPRAZolam [Xanax] 0.5 mg PO TID PRN #9 tablet 07/18/24 Nicotine 14Mg/24Hr Patch [Habitrol] 1 patch TRANSDERM DAILY patch 07/21/24 Omeprazole [PriLOSEC] 20 mg PO AC-BRKFST 30 Days #30 cap 07/21/24 Ziprasidone [Geodon] 20 mg PO 1700 30 Days #30 cap 07/21/24 fluvoxaMINE MALEATE 50 mg PO BID 30 Days #60 tab 07/21/24 lamoTRIgine [LaMICtal] 100 mg PO DAILY 30 Days #30 tab 07/21/24 Loperamide HCl [Imodium A-D] 2 mg PO ONCE #30 tablet 07/29/24 Simethicone [Gas-X] 125 mg PO QID #40 capsule 07/30/24 diazePAM [Valium] 2 mg PO BID PRN 3 Days #6 tab 09/03/24 Dicyclomine [Bentyl] 20 mg PO TID #30 tablet 10/03/24 Allergies Allergy/AdvReac Type Severity Reaction Status Date / Time aripiprazole [From Abili] Allergy Unknown Agitation Verified 10/03/24 18:56 cariprazine [From Vraylar] Allergy Unknown Agitation Verified 10/03/24 18:56 citalopram [From Celexa] Allergy Unknown Agitation Verified 10/03/24 18:56 divalproex sodium Allergy Unknown Agitation Verified 10/03/24 18:56 [From Depakote] paroxetine [From Paxil] Allergy Unknown Agitation Verified 10/03/24 18:56 sertraline [From Zoloft] Allergy Unknown Agitation Verified 10/03/24 18:56 phenobarbital AdvReac Severe Rapid Verified 10/03/24 18:56 Heart Rate zolpidem tartrate AdvReac Unknown Altered Verified 10/03/24 18:56 [From Ambien] Mental Status estropipate [From Ogen 2.5] AdvReac Twitching Verified 10/03/24 18:56 of Legs haloperidol [From Haldol] AdvReac Agitation Verified 10/03/24 18:56 ketorolac [From Toradol] AdvReac Unknown Verified 10/03/24 18:56 lorazepam [From Ativan] AdvReac Hallucinati Verified 10/03/24 18:56 ons methylprednisolone AdvReac Altered Verified 10/03/24 18:56 [From Solu-Medrol] Mental Status ondansetron [From Zofran] AdvReac Unknown Verified 10/03/24 18:56 Review of Systems ROS Statement: Those systems with pertinent positive or pertinent negative responses have been documented in the HPI. ROS Other: All systems not noted in ROS Statement are negative. 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 PT IS ABLE TO MAKE DECISIONS FOR HIMSELF,IBS History of Any Multi-Drug Resistant Organisms: None Reported Past Surgical History: Tonsillectomy Additional Past Surgical History / Comment(s): wisdom teeth removed. Past Anesthesia/Blood Transfusion Reactions: No Reported Reaction Additional Past Anesthesia/Blood Transfusion Reaction / Comment(s): NEVER HAD BLOOD TRANSFUSION Past Psychological History: ADD/ADHD, Anxiety, Bipolar, Depression, PTSD Smoking Status: Current every day smoker Past Alcohol Use History: None Reported Past Drug Use History: None Reported - Past Family History Sister(s) Additional Family Medical History / Comment(s): He has one sister that is healthy. He also has a 4-year-old daughter that is healthy. Father Family Medical History: GERD/Reflux Additional Family Medical History / Comment(s): DAD HAS ALSO NEVER BEEN AN ALCOHOLIC-RARELY, RARELY DRINKS. Mother Family Medical History: Cancer Additional Family Medical History / Comment(s): MOM STATES SHE HAS NEVER BEEN AN ALCOHOLIC-MOM RARELY ,RARELY DRINKS. HX THYROID CANCER General Exam Limitations: no limitations General appearance: alert, anxious, in distress (Patient sweating profusely and tearful) Head exam: Present: atraumatic, normocephalic, normal inspection Eye exam: Present: normal appearance, PERRL, EOMI. Absent: scleral icterus, conjunctival injection, periorbital swelling ENT exam: Present: normal exam, mucous membranes dry, TM's normal bilaterally Neck exam: Present: normal inspection. Absent: tenderness, meningismus, lymphadenopathy Respiratory exam: Present: normal lung sounds bilaterally. Absent: respiratory distress, wheezes, rales, rhonchi, stridor Cardiovascular Exam: Present: regular rate, normal rhythm, normal heart sounds. Absent: systolic murmur, diastolic murmur, rubs, gallop, clicks GI/Abdominal exam: Present: soft, tenderness (Diffuse tenderness, tympanic tenderness and rebound tenderness with voluntary guarding), guarding, rebound, hyperactive bowel sounds. Absent: distended, rigid, mass Extremities exam: Present: normal inspection, full ROM, normal capillary refill. Absent: tenderness, pedal edema, joint swelling, calf tenderness Back exam: Present: normal inspection Neurological exam: Present: alert, oriented X3, CN II-XII intact Psychiatric exam: Present: normal affect, normal mood Skin exam: Present: warm, intact, normal color, diaphoretic. Absent: rash Course Vital Signs 10/03/24 10/03/24 18:54 21:15 Temperature 99.6 F 98.5 F Pulse Rate 82 80 Respiratory 20 18 Rate Blood Pressure 118/79 135/89 O2 Sat by Pulse 97 98 Oximetry Medical Decision Making - Medical Decision Making Was pt. sent in by a medical professional or institution (, PA, [employer]PERVISOR, urgent care, hospital, or retirement...) When possible be specific @ -[No] Did you speak to anyone other than the patient for history (EMS, parent, family, police, friend...)? What history was obtained from this source @ -Guardian provided portion of HPI Did you review nursing and triage notes (agree or disagree)? Why? @ -[I reviewed and agree with nursing and triage notes] Were old charts reviewed (outside hosp., previous admission, EMS record, old EKG, old radiological studies, urgent care reports/EKG's, retirement records)? Report findings @ -[No old charts were reviewed] Differential Diagnosis (chest pain, altered mental status, abdominal pain women, abdominal pain men, vaginal bleeding, weakness, fever, dyspnea, syncope, headache, dizziness, GI bleed, back pain, seizure, CVA, palpatations, mental health, musculoskeletal)? @ -Differential Abdominal Pain Men: Appendicitis, cholecystitis, diverticulosis, ischemic bowel, pancreatitis, hepatitis, UTI, gastroenteritis, AAA, incarcerated hernia, bowel obstruction, constipation, inflammatory bowel, hepatitis, peptic ulcer disease, splenic infarction, perforated viscus, testicular torsion, this is not meant to be an all-inclusive list EKG interpreted by me (3pts min.). @ -[As above] X-rays interpreted by me (1pt min.). @ -[None done] CT interpreted by me (1pt min.). @ -[None done] U/S interpreted by me (1pt. min.). @ -[None done] What testing was considered but not performed or refused? (CT, X-rays, U/S, labs)? Why? @ -[None] What meds were considered but not given or refused? Why? @ -[None] Did you discuss the management of the patient with other professionals (professionals i.e. , PA, [employer] SUPERVISOR, lab, RT, psych nurse, social sciences professor, director of guidance, teacher, homicide squad commanding officer, ed case manager)? Give summary @ -[No] Was smoking cessation discussed for >3mins.? @ -[No] Was critical care preformed (if so, how long)? @ -[No] Were there social determinants of health that impacted care today? How? (Homelessness, low income, unemployed, alcoholism, drug addiction, transportation, low edu. Level, literacy, decrease access to med. care, half-way, rehab)? @ -[No] Was there de-escalation of care discussed even if they declined (Discuss DNR or withdrawal of care, Hospice)? DNR status @ -[No] What co-morbidities impacted this encounter? (DM, HTN, Smoking, COPD, CAD, Cancer, CVA, ARF, Chemo, Hep., AIDS, mental health diagnosis, sleep apnea, morbid obesity)? @ -IBS, GERD, MDD, anxiety Was patient admitted / discharged? Hospital course, mention meds given and route, prescriptions, significant lab abnormalities, going to OR and other pertinent info. @ -[hospital course] Undiagnosed new problem with uncertain prognosis? @ -[No] Drug Therapy requiring intensive monitoring for toxicity (Heparin, Nitro, Insulin, Cardizem)? @ -[No] Were any procedures done? @ -[No] Diagnosis/symptom? @ -[default] Acute, or Chronic, or Acute on Chronic? @ -Acute on chronic Uncomplicated (without systemic symptoms) or Complicated (systemic symptoms)? @ -Complicated Side effects of treatment? @ -[No] Exacerbation, Progression, or Severe Exacerbation? @ -Severe exacerbation Poses a threat to life or bodily function? How? (Chest pain, USA, MA, pneumonia, PE, COPD, DKA, ARF, appy, cholecystitis, CVA, Diverticulitis, Homicidal, Suicidal, threat to staff... and all critical care pts) @ -[No] - Lab Data Result diagrams: 10/03/24 21:10/03/24 21:01 Lab Results 10/03/24 10/03/24 10/03/24 Range/Units 21: 21: 21: WBC 7.9 (3.8-10.6) k/uL RBC 4.65 (4.30-5.90) m/uL Hgb 14.0 (13.0-17.5) gm/dL Hct 42.6 (39.0-53.0) % MCV 91.7 (80.0-100.0) fL MCH 30.1 (25.0-35.0) pg MCHC 32.8 (31.0-37.0) g/dL RDW 13.0 (11.5-15.5) % Plt Count 186 (150-450) k/uL MPV 8.1 Neutrophils % 67 % Lymphocytes % 23 % Monocytes % 6 % Eosinophils % 2 % Basophils % 0 % Neutrophils # 5.3 (1.3-7.7) k/uL Lymphocytes # 1.8 (1.0-4.8) k/uL Monocytes # 0.5 (0-1.0) k/uL Eosinophils # 0.2 (0-0.7) k/uL Basophils # 0.0 (0-0.2) k/uL PT 11.0 (10.0-12.5) sec INR 1.0 (<1.2) APTT 26.2 (22.0-30.0) sec Sodium 139 (137-145) mmol/L Potassium 3.6 (3.5-5.1) mmol/L Chloride 103 (98-107) mmol/L Carbon Dioxide 26 (22-30) mmol/L Anion Gap 10 mmol/L BUN 13 (9-20) mg/dL Creatinine 0.74 (0.66-1.25) mg/dL Est GFR (CKD-EPI)AfAm >90 (>60 ml/min/1.73 sqM) Est GFR (CKD-EPI)NonAf >90 (>60 ml/min/1.73 sqM) Glucose 96 (74-99) mg/dL Plasma Lactic Acid Socrates (0.7-2.0) mmol/L Calcium 9.5 (8.4-10.2) mg/dL Total Bilirubin 0.7 (0.2-1.3) mg/dL AST 15 L (17-59) U/L ALT 11 (4-49) U/L Alkaline Phosphatase 104 (38-126) U/L Total Protein 6.4 (6.3-8.2) g/dL Albumin 4.4 (3.5-5.0) g/dL Amylase 32 (30-110) U/L Lipase 22 L (23-300) U/L Urine Color Urine Appearance (Clear) Urine pH (5.0-8.0) Ur Specific [place] (1.001-1.035) Urine Protein (Negative) Urine Glucose (UA) (Negative) Urine Ketones (Negative) Urine Blood (Negative) Urine Nitrite (Negative) Urine Bilirubin (Negative) Urine Urobilinogen (<2.0) mg/dL Ur Leukocyte Esterase (Negative) Influenza Type A (PCR) (Not Detectd) Influenza Type B (PCR) (Not Detectd) RSV (PCR) (Not Detectd) SARS-CoV-2 (PCR) (Not Detectd) 10/03/24 10/03/24 10/03/24 Range/Units 21:01 21:01 21:01 WBC (3.8-10.6) k/uL RBC (4.30-5.90) m/uL Hgb (13.0-17.5) gm/dL Hct (39.0-53.0) % MCV (80.0-100.0) fL MCH (25.0-35.0) pg MCHC (31.0-37.0) g/dL RDW (11.5-15.5) % Plt Count (150-450) k/uL MPV Neutrophils % % Lymphocytes % % Monocytes % % Eosinophils % % Basophils % % Neutrophils # (1.3-7.7) k/uL Lymphocytes # (1.0-4.8) k/uL Monocytes # (0-1.0) k/uL Eosinophils # (0-0.7) k/uL Basophils # (0-0.2) k/uL PT (10.0-12.5) sec INR (<1.2) APTT (22.0-30.0) sec Sodium (137-145) mmol/L Potassium (3.5-5.1) mmol/L Chloride (98-107) mmol/L Carbon Dioxide (22-30) mmol/L Anion Gap mmol/L BUN (9-20) mg/dL Creatinine (0.66-1.25) mg/dL Est GFR (CKD-EPI)AfAm (>60 ml/min/1.73 sqM) Est GFR (CKD-EPI)NonAf (>60 ml/min/1.73 sqM) Glucose (74-99) mg/dL Plasma Lactic Acid Socrates 0.8 (0.7-2.0) mmol/L Calcium (8.4-10.2) mg/dL Total Bilirubin (0.2-1.3) mg/dL AST (17-59) U/L ALT (4-49) U/L Alkaline Phosphatase (38-126) U/L Total Protein (6.3-8.2) g/dL Albumin (3.5-5.0) g/dL Amylase (30-110) U/L Lipase (23-300) U/L Urine Color Yellow Urine Appearance Clear (Clear) Urine pH 6.5 (5.0-8.0) Ur Specific [place] 1.030 (1.001-1.035) Urine Protein Trace H (Negative) Urine Glucose (UA) Negative (Negative) Urine Ketones Negative (Negative) Urine Blood Negative (Negative) Urine Nitrite Negative (Negative) Urine Bilirubin Negative (Negative) Urine Urobilinogen 3.0 (<2.0) mg/dL Ur Leukocyte Esterase Negative (Negative) Influenza Type A (PCR) Not Detected (Not Detectd) Influenza Type B (PCR) Not Detected (Not Detectd) RSV (PCR) Not Detected (Not Detectd) SARS-CoV-2 (PCR) Not Detected (Not Detectd) Disposition Clinical Impression: IBS (irritable bowel syndrome) Disposition: HOME SELF-CARE Condition: Good Additional Instructions: Follow-up with PCP/gastroenterology for ongoing care. Prescriptions: Dicyclomine [Bentyl] 20 mg PO TID #30 tablet Is patient prescribed a controlled substance at d/c from ED?: No Referrals: Sumeet Mejias III, MD [Primary Care Provider] - 1-2 days Time of Disposition: 22:48
[2024-10-03] MEDS: PANTOPRAZOLE 40 MG/10 ML VIAL IVP STA (20:41)
[2024-10-03] MEDS: DICYCLOMINE 10 MG/ML 2 ML AMP IM STA (20:41)
[2024-10-03] MEDS: SODIUM CHLORIDE 0.9% 1,000 ML IV STA (20:41)
[2024-10-03] MEDS: FAMOTIDINE 20 MG/2 ML VIAL IV STA (20:42)
[2024-10-03] MEDS: HYDROmorphone 1 MG/ML 1 ML SYRINGE IVP STA ×2 (20:42→22:43)
[2024-10-03 21:11] LABS: Basophils % (A) 0 %; Eosinophils # (A) 0.2 k/uL (0-0.7); Eosinophils % (A) 2 %; HCT 42.6 % (39.0-53.0); Lymphocytes # (A) 1.8 k/uL (1.0-4.8); Lymphocytes % (A) 23 %; MCH 30.1 pg (25.0-35.0); MCHC 32.8 g/dL (31.0-37.0); MCV 91.7 fL (80.0-100.0); Mean Platelet Volume 8.1; Monocytes # (A) 0.5 k/uL (0-1.0); Monocytes % (A) 6 %; Neutrophils # (A) 5.3 k/uL (1.3-7.7); Neutrophils % (A) 67 %; Platelet Count 186 k/uL (150-450); RBC 4.65 m/uL (4.30-5.90); WBC 7.9 k/uL (3.8-10.6)
[2024-10-03 21:16] VITALS: BP 135/89; PULSE 80; RESP 18; TEMP 98.5
[2024-10-03 21:19] LABS: Partial Thromboplastin Time 26.2 sec (22.0-30.0)
[2024-10-03 21:24] LABS: ALT 11 U/L (4-49); AST 15 U/L (17-59); African American GFR (CKD) >90 (>60 ml/min/1.73 sqM); Albumin 4.4 g/dL (3.5-5.0); Alkaline Phosphatase 104 U/L (38-126); Amylase 32 U/L (30-110); Anion Gap 10 mmol/L; Blood Urea Nitrogen 13 mg/dL (9-20); Calcium 9.5 mg/dL (8.4-10.2); Carbon Dioxide 26 mmol/L (22-30); Chloride 103 mmol/L (98-107); Glucose 96 mg/dL (74-99); Lipase 22 U/L (23-300); Non-African American GFR(CKD) >90 (>60 ml/min/1.73 sqM); Potassium 3.6 mmol/L (3.5-5.1); Sodium 139 mmol/L (137-145); Total Bilirubin 0.7 mg/dL (0.2-1.3); Total Protein 6.4 g/dL (6.3-8.2)
[2024-10-03 22:05] LABS: Appearance,Urine Clear (Clear); Bilirubin,Urine Negative (Negative); Blood,Urine Negative (Negative); Color,Urine Yellow; Glucose,Urine (UA) Negative (Negative); Ketones,Urine Negative (Negative); Leukocyte Esterase,Urine Negative (Negative); Nitrite,Urine Negative (Negative); PH, Urine 6.5 (5.0-8.0); Protein,Urine Trace (Negative)
[2024-10-03 22:25] LABS: Influenza A Not Detected (Not Detectd); Influenza B Not Detected (Not Detectd); RSV Not Detected (Not Detectd)
--- NOTE | 2024-10-03 22:26 | CT ---
EXAMINATION TYPE: CT abdomen pelvis w con DATE OF EXAM: 10/03/2024 9:45 PM COMPARISON: None. CLINICAL INDICATION: Male, 34 years old with history of abdominal pain, hematochezia, Pt needs psych evaluation and having abd pain all over TECHNIQUE: Axial images were obtained from above the diaphragm to the pubic rami in the axial plane a t 5 mm thick sections. Reconstructed images are reviewed on the computer in the coronal plane. CONTRAST: 100 mL mL of Isovue 300. Study performed without Oral Contrast DLP: 711.1 mGycm, Automated exposure control for dose reduction was used. FINDINGS: Limited CT sections are obtained the lung bases. The lung bases are clear. CT ABDOMEN: Liver: Normal Spleen: Normal Pancreas: Normal Adrenal glands: The adrenal glands are normal. Gallbladder: Normal Kidneys: No masses are evident. No hydronephrosis is present. No cysts are present. Delayed images were obtained through the kidneys, which remain unremarkable. Aorta: Normal Inferior vena cava: Normal. CT PELVIS: Loops of bowel within the abdomen and pelvis are normal. Scattered diverticula within the distal col on. No adjacent inflammatory changes. Studies without oral contrast limiting bowel Appendix: Normal as visualized.. Urinary bladder: Normal. Genitourinary structures: Prostate is normal Osseous structures: No suspicious lytic or sclerotic lesions. IMPRESSION: 1. No suspicious abnormalities to account for severe abdominal pain. [facility], Workstation: [facility], 10/03/2024 10:24 PM
== END 2024-10-03 23:22 | disposition home or self-care (01) ==
LOC: EC 18:34
DX: K58.0 Irritable bowel syndrome with diarrhea (principal); K21.9 Gastro-esophageal reflux disease without esophagitis; F41.9 Anxiety disorder, unspecified; F32.9 Major depressive disorder, single episode, unspecified; F17.200 Nicotine dependence, unspecified, uncomplicated; Z11.52 Encounter for screening for COVID-19; Z88.8 Allergy status to other drugs, medicaments and biological substances; Z79.899 Other long term (current) drug therapy
CPT/HCPCS: 82075; 36415; 80053; 82150; 83605; 83690; 85025; 85610; 85730; 81003; 87636; 74177; 99284; 96374; 96375 ×2; 96376; 96361; 96372; J0500; J3490; J1171; Q9967; J2470

== ENCOUNTER 2024-10-15 21:13 | Emergency (ER) | payer OTHER ==
[2024-10-15] MEDS: SODIUM CHLORIDE 0.9% 500 ML 500 ML IV STA (22:19)
[2024-10-15 22:35] LABS: Basophils % (A) 0 %; Eosinophils # (A) 0.1 k/uL (0-0.7); Eosinophils % (A) 3 %; HCT 44.2 % (39.0-53.0); HGB 14.8 gm/dL (13.0-17.5); Lymphocytes # (A) 1.8 k/uL (1.0-4.8); Lymphocytes % (A) 35 %; MCH 30.3 pg (25.0-35.0); MCHC 33.4 g/dL (31.0-37.0); MCV 90.7 fL (80.0-100.0); Mean Platelet Volume 8.5; Monocytes # (A) 0.3 k/uL (0-1.0); Monocytes % (A) 5 %; Neutrophils # (A) 2.7 k/uL (1.3-7.7); Neutrophils % (A) 55 %; Platelet Count 198 k/uL (150-450); RBC 4.87 m/uL (4.30-5.90); RDW 13.4 % (11.5-15.5)
[2024-10-15 22:42] LABS: Appearance,Urine Clear (Clear); Bilirubin,Urine Negative (Negative); Blood,Urine Negative (Negative); Color,Urine Yellow; Glucose,Urine (UA) Negative (Negative); Ketones,Urine 1+ (Negative); Leukocyte Esterase,Urine Negative (Negative); Nitrite,Urine Negative (Negative); Protein,Urine Negative (Negative); Specific Gravity,Urine 1.016 (1.001-1.035)
--- NOTE | 2024-10-15 22:46 | ED ---
Abdominal Pain HPI - General Chief Complaint: Abdominal Pain Stated Complaint: Abd Pain Time Seen by Provider: 10/15/24 21:39 Source: patient Mode of arrival: ambulatory Limitations: no limitations - History of Present Illness MD Complaint: abdominal pain -: hour(s) Location: suprapubic Migration to: no migration Severity: severe Quality: cramping Consistency: intermittent Improves With: nothing Worsens With: nothing Associated Symptoms: nausea - Related Data Home Medications Medication Instructions Recorded Confirmed Nicotine 21Mg/24Hr Patch [Habitrol] 1 patch TRANSDERM HS 07/18/24 07/19/24 Previous Rx's Medication Instructions Recorded ALPRAZolam [Xanax] 0.5 mg PO TID PRN #9 tablet 07/18/24 Nicotine 14Mg/24Hr Patch [Habitrol] 1 patch TRANSDERM DAILY patch 07/21/24 Omeprazole [PriLOSEC] 20 mg PO AC-BRKFST 30 Days #30 cap 07/21/24 Ziprasidone [Geodon] 20 mg PO 1700 30 Days #30 cap 07/21/24 fluvoxaMINE MALEATE 50 mg PO BID 30 Days #60 tab 07/21/24 lamoTRIgine [LaMICtal] 100 mg PO DAILY 30 Days #30 tab 07/21/24 Loperamide HCl [Imodium A-D] 2 mg PO ONCE #30 tablet 07/29/24 Simethicone [Gas-X] 125 mg PO QID #40 capsule 07/30/24 diazePAM [Valium] 2 mg PO BID PRN 3 Days #6 tab 09/03/24 Dicyclomine [Bentyl] 20 mg PO TID #30 tablet 10/03/24 Metoclopramide [Reglan] 10 mg PO Q6H PRN #20 tab 10/13/24 Docusate [Colace] 100 mg PO DAILY PRN 14 Days #14 10/21/24 capsule Allergies Allergy/AdvReac Type Severity Reaction Status Date / Time aripiprazole [From Abilify] Allergy Unknown Agitation Verified 10/21/24 12:34 cariprazine [From Vraylar] Allergy Unknown Agitation Verified 10/21/24 12:34 citalopram [From Celexa] Allergy Unknown Agitation Verified 10/21/24 12:34 divalproex sodium Allergy Unknown Agitation Verified 10/21/24 12:34 [From Depakote] paroxetine [From Paxil] Allergy Unknown Agitation Verified 10/21/24 12:34 sertraline [From Zoloft] Allergy Unknown Agitation Verified 10/21/24 12:34 metoclopramide [From Reglan] Allergy Rash/Hives Verified 10/21/24 12:34 phenobarbital AdvReac Severe Rapid Verified 10/21/24 12:34 Heart Rate zolpidem tartrate AdvReac Unknown Altered Verified 10/21/24 12:34 [From Ambien] Mental Status estropipate [From Ogen 2.5] AdvReac Twitching Verified 10/21/24 12:34 of Legs haloperidol [From Haldol] AdvReac Agitation Verified 10/21/24 12:34 ketorolac [From Toradol] AdvReac Unknown Verified 10/21/24 12:34 lorazepam [From Ativan] AdvReac Hallucinati Verified 10/21/24 12:34 ons methylprednisolone AdvReac Altered Verified 10/21/24 12:34 [From Solu-Medrol] Mental Status ondansetron [From Zofran] AdvReac Unknown Verified 10/21/24 12:34 Review of Systems ROS Statement: Those systems with pertinent positive or pertinent negative responses have been documented in the HPI. ROS Other: All systems not noted in ROS Statement are negative. Constitutional: Denies: fever, chills Respiratory: Denies: cough, dyspnea Cardiovascular: Denies: chest pain, palpitations, edema Gastrointestinal: Reports: abdominal pain, nausea, constipation. Denies: vomiting, diarrhea Genitourinary: Reports: testicular pain. 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 PT IS ABLE TO MAKE DECISIONS FOR HIMSELF,IBS History of Any Multi-Drug Resistant Organisms: None Reported Past Surgical History: Tonsillectomy Additional Past Surgical History / Comment(s): wisdom teeth removed. Past Anesthesia/Blood Transfusion Reactions: No Reported Reaction Additional Past Anesthesia/Blood Transfusion Reaction / Comment(s): NEVER HAD BLOOD TRANSFUSION Past Psychological History: ADD/ADHD, Anxiety, Bipolar, Depression, PTSD Smoking Status: Current every day smoker Past Alcohol Use History: None Reported Past Drug Use History: None Reported - Past Family History Sister(s) Additional Family Medical History / Comment(s): He has one sister that is healthy. He also has a 4-year-old daughter that is healthy. Father Family Medical History: GERD/Reflux Additional Family Medical History / Comment(s): DAD HAS ALSO NEVER BEEN AN ALCOHOLIC-RARELY, RARELY DRINKS. Mother Family Medical History: Cancer Additional Family Medical History / Comment(s): MOM STATES SHE HAS NEVER BEEN AN ALCOHOLIC-MOM RARELY ,RARELY DRINKS. HX THYROID CANCER General Exam Limitations: no limitations General appearance: alert, in no apparent distress Head exam: Present: atraumatic, normocephalic Eye exam: Present: normal appearance. Absent: scleral icterus, conjunctival injection ENT exam: Present: normal oropharynx Neck exam: Present: normal inspection Respiratory exam: Present: normal lung sounds bilaterally. Absent: respiratory distress, wheezes, rales, rhonchi, stridor, accessory muscle use Cardiovascular Exam: Present: regular rate, normal rhythm, normal heart sounds. Absent: systolic murmur, diastolic murmur, rubs, gallop GI/Abdominal exam: Present: soft. Absent: distended, tenderness, guarding, rebound, rigid, mass exam: Present: normal inspection, vertical testicular lie, circumcision. Absent: testicular tenderness, urethral discharge, scrotal swelling Extremities exam: Present: normal inspection, normal capillary refill. Absent: pedal edema, calf tenderness Back exam: Present: normal inspection. Absent: CVA tenderness (R), CVA tenderness (L) Neurological exam: Present: alert Skin exam: Present: warm, dry, intact, normal color. Absent: rash Course Vital Signs 10/15/24 10/16/24 10/16/24 21:17 02:06 02:11 Temperature 97.8 F 98.4 F Pulse Rate 103 H 67 61 Respiratory 20 15 18 Rate Blood Pressure 137/92 98/60 114/69 O2 Sat by Pulse 99 98 100 Oximetry Medical Decision Making - Medical Decision Making The patient had KUB x-ray that I interpreted as negative for free air or bowel obstruction. Was pt. sent in by a medical professional or institution (Dr., PA, FREIGHT BRAKEMAN, urgent care, hospital, or assisted...) When possible be specific @ -[No] Did you speak to anyone other than the patient for history (EMS, parent, family, police, friend...)? What history was obtained from this source @ -[No] Did you review nursing and triage notes (agree or disagree)? Why? @ -[I reviewed and agree with nursing and triage notes] Were old charts reviewed (outside hosp., previous admission, EMS record, old EKG, old radiological studies, urgent care reports/EKG's, assisted records)? Report findings @ -[No old charts were reviewed] Differential Diagnosis (chest pain, altered mental status, abdominal pain women, abdominal pain men, vaginal bleeding, weakness, fever, dyspnea, syncope, headache, dizziness, GI bleed, back pain, seizure, CVA, palpatations, mental health, musculoskeletal)? @ -[Differential Abdominal Pain Men: Appendicitis, cholecystitis, diverticulosis, ischemic bowel, pancreatitis, hepatitis, UTI, gastroenteritis, AAA, incarcerated hernia, bowel obstruction, constipation, inflammatory bowel, hepatitis, peptic ulcer disease, splenic infarction, perforated viscus, testicular torsion, this is not meant to be an all-inclusive list EKG interpreted by me (3pts min.). @ -[As above] X-rays interpreted by me (1pt min.). @ -[I interpreted as above CT interpreted by me (1pt min.). @ -[None done] U/S interpreted by me (1pt. min.). @ -[None done] What testing was considered but not performed or refused? (CT, X-rays, U/S, labs)? Why? @ -[None] What meds were considered but not given or refused? Why? @ -[None] Did you discuss the management of the patient with other professionals (professionals i.e. LINO Patel, FREIGHT BRAKEMAN, lab, RT, psych nurse, forensic social worker, payment analyst, teacher, employment security officer, porter sample case)? Give summary @ -[No] Was smoking cessation discussed for >3mins.? @ -[No] Was critical care preformed (if so, how long)? @ -[No] Were there social determinants of health that impacted care today? How? (Homelessness, low income, unemployed, alcoholism, drug addiction, transportation, low edu. Level, literacy, decrease access to med. care, long-term, rehab)? @ -[No] Was there de-escalation of care discussed even if they declined (Discuss DNR or withdrawal of care, Hospice)? DNR status @ -[No] What co-morbidities impacted this encounter? (DM, HTN, Smoking, COPD, CAD, Cancer, CVA, ARF, Chemo, Hep., AIDS, mental health diagnosis, sleep apnea, morbid obesity)? @ -[Chronic abdominal pain Was patient admitted / discharged? Hospital course, mention meds given and route, prescriptions, significant lab abnormalities, going to OR and other pertinent info. @ -[Patient is a 34-year-old man with history of chronic abdominal pains who presents with symptoms consistent with a flareup of his usual pain. The patient workup unremarkable. His exam not suggestive of acute surgical condition. The patient is given analgesia with some though not full relief of symptoms. Discussed further care and follow-up as well as return parameters Undiagnosed new problem with uncertain prognosis? @ -[No] Drug Therapy requiring intensive monitoring for toxicity (Heparin, Nitro, Insulin, Cardizem)? @ -[No] Were any procedures done? @ -[No] Diagnosis/symptom? @ -[Acute on chronic abdominal pain Acute, or Chronic, or Acute on Chronic? @ -[Acute on chronic Uncomplicated (without systemic symptoms) or Complicated (systemic symptoms)? @ -[Uncomplicated Side effects of treatment? @ -[No] Exacerbation, Progression, or Severe Exacerbation? @ -[No] Poses a threat to life or bodily function? How? (Chest pain, USA, [place], pneumonia, PE, COPD, DKA, ARF, appy, cholecystitis, CVA, Diverticulitis, Homicidal, Suicidal, threat to staff... and all critical care pts) @ -[No] All treatments are based on ideal body weight as in ED triage - Lab Data Result diagrams: 10/15/24 22:14 10/15/24 22:14 Lab Results 10/15/24 10/15/24 10/15/24 Range/Units 22:14 22:14 22:14 WBC 5.0 (3.8-10.6) k/uL RBC 4.87 (4.30-5.90) m/uL Hgb 14.8 (13.0-17.5) gm/dL Hct 44.2 (39.0-53.0) % MCV 90.7 (80.0-100.0) fL MCH 30.3 (25.0-35.0) pg MCHC 33.4 (31.0-37.0) g/dL RDW 13.4 (11.5-15.5) % Plt Count 198 (150-450) k/uL MPV 8.5 Neutrophils % 55 % Lymphocytes % 35 % Monocytes % 5 % Eosinophils % 3 % Basophils % 0 % Neutrophils # 2.7 (1.3-7.7) k/uL Lymphocytes # 1.8 (1.0-4.8) k/uL Monocytes # 0.3 (0-1.0) k/uL Eosinophils # 0.1 (0-0.7) k/uL Basophils # 0.0 (0-0.2) k/uL Sodium 138 (137-145) mmol/L Potassium 3.6 (3.5-5.1) mmol/L Chloride 99 (98-107) mmol/L Carbon Dioxide 28 (22-30) mmol/L Anion Gap 11 mmol/L BUN 13 (9-20) mg/dL Creatinine 0.84 (0.66-1.25) mg/dL Est GFR (CKD-EPI)AfAm >90 (>60 ml/min/1.73 sqM) Est GFR (CKD-EPI)NonAf >90 (>60 ml/min/1.73 sqM) Glucose 93 (74-99) mg/dL Plasma Lactic Acid Socrates 1.2 (0.7-2.0) mmol/L Calcium 10.0 (8.4-10.2) mg/dL Total Bilirubin 1.0 (0.2-1.3) mg/dL AST 20 (17-59) U/L ALT 14 (4-49) U/L Alkaline Phosphatase 93 (38-126) U/L C-Reactive Protein 1.2 H (<1.0) mg/dL Total Protein 6.9 (6.3-8.2) g/dL Albumin 4.7 (3.5-5.0) g/dL Amylase 38 (30-110) U/L Lipase 17 L (23-300) U/L Urine Color Urine Appearance (Clear) Urine pH (5.0-8.0) Ur Specific [place] (1.001-1.035) Urine Protein (Negative) Urine Glucose (UA) (Negative) Urine Ketones (Negative) Urine Blood (Negative) Urine Nitrite (Negative) Urine Bilirubin (Negative) Urine Urobilinogen (<2.0) mg/dL Ur Leukocyte Esterase (Negative) 10/15/24 Range/Units 22:22 WBC (3.8-10.6) k/uL RBC (4.30-5.90) m/uL Hgb (13.0-17.5) gm/dL Hct (39.0-53.0) % MCV (80.0-100.0) fL MCH (25.0-35.0) pg MCHC (31.0-37.0) g/dL RDW (11.5-15.5) % Plt Count (150-450) k/uL MPV Neutrophils % % Lymphocytes % % Monocytes % % Eosinophils % % Basophils % % Neutrophils # (1.3-7.7) k/uL Lymphocytes # (1.0-4.8) k/uL Monocytes # (0-1.0) k/uL Eosinophils # (0-0.7) k/uL Basophils # (0-0.2) k/uL Sodium (137-145) mmol/L Potassium (3.5-5.1) mmol/L Chloride (98-107) mmol/L Carbon Dioxide (22-30) mmol/L Anion Gap mmol/L BUN (9-20) mg/dL Creatinine (0.66-1.25) mg/dL Est GFR (CKD-EPI)AfAm (>60 ml/min/1.73 sqM) Est GFR (CKD-EPI)NonAf (>60 ml/min/1.73 sqM) Glucose (74-99) mg/dL Plasma Lactic Acid Socrates (0.7-2.0) mmol/L Calcium (8.4-10.2) mg/dL Total Bilirubin (0.2-1.3) mg/dL AST (17-59) U/L ALT (4-49) U/L Alkaline Phosphatase (38-126) U/L C-Reactive Protein (<1.0) mg/dL Total Protein (6.3-8.2) g/dL Albumin (3.5-5.0) g/dL Amylase (30-110) U/L Lipase (23-300) U/L Urine Color Yellow Urine Appearance Clear (Clear) Urine pH 6.0 (5.0-8.0) Ur Specific [place] 1.016 (1.001-1.035) Urine Protein Negative (Negative) Urine Glucose (UA) Negative (Negative) Urine Ketones 1+ H (Negative) Urine Blood Negative (Negative) Urine Nitrite Negative (Negative) Urine Bilirubin Negative (Negative) Urine Urobilinogen 2.0 (<2.0) mg/dL Ur Leukocyte Esterase Negative (Negative) Disposition Clinical Impression: Abdominal pain Disposition: HOME SELF-CARE Condition: Good Instructions (If sedation given, give patient instructions): Abdominal Pain (ED) Is patient prescribed a controlled substance at d/c from ED?: No Referrals: Sumeet Mejias III, MD [Primary Care Provider] - 1-2 days
[2024-10-15 22:56] LABS: ALT 14 U/L (4-49); AST 20 U/L (17-59); African American GFR (CKD) >90 (>60 ml/min/1.73 sqM); Albumin 4.7 g/dL (3.5-5.0); Alkaline Phosphatase 93 U/L (38-126); Amylase 38 U/L (30-110); Anion Gap 11 mmol/L; Blood Urea Nitrogen 13 mg/dL (9-20); C Reactive Protein 1.2 mg/dL (<1.0); Carbon Dioxide 28 mmol/L (22-30); Chloride 99 mmol/L (98-107); Glucose 93 mg/dL (74-99); Lipase 17 U/L (23-300); Non-African American GFR(CKD) >90 (>60 ml/min/1.73 sqM); Potassium 3.6 mmol/L (3.5-5.1); Sodium 138 mmol/L (137-145); Total Protein 6.9 g/dL (6.3-8.2)
[2024-10-15] MEDS: DICYCLOMINE 10 MG/ML 2 ML AMP IM STA (23:18)
[2024-10-15] MEDS: FAMOTIDINE 20 MG/2 ML VIAL IV STA (23:35)
--- NOTE | 2024-10-16 00:42 | XR ---
EXAM: XR Abdomen, 1 View CLINICAL HISTORY: ITS.REASON XR Reason: abdominal pain TECHNIQUE: Frontal supine view of the abdomen/pelvis. COMPARISON: 10/12/2024. FINDINGS: Gastrointestinal tract: Moderate quantity of stool throughout the colon. Nonspecific bowel gas pattern. No dilation. Organs: Unremarkable as visualized. No radiopaque renal calculi. Bones/joints: Osseous structures and soft tissues are unremarkable. No acute fracture. IMPRESSION: 1. Moderate quantity of stool throughout the colon. 2. Nonspecific bowel gas pattern.
[2024-10-16] MEDS: HYDROmorphone 0.5 MG/0.5 ML SYRINGE IVP STA (00:50)
[2024-10-16 02:07] VITALS: TEMP 98.4
[2024-10-16 02:12] VITALS: BP 114/69; PULSE 61; RESP 18
== END 2024-10-16 02:13 | disposition home or self-care (01) ==
LOC: EC 21:13
DX: R10.30 Lower abdominal pain, unspecified (principal); F17.200 Nicotine dependence, unspecified, uncomplicated; Z88.8 Allergy status to other drugs, medicaments and biological substances; Z88.6 Allergy status to analgesic agent
CPT/HCPCS: 99284 ×2; 96374 ×2; 96375 ×2; 36415; 80053; 82150; 83605; 83690; 85025; 86140; 81003; 74018; J3490; J1171

== ENCOUNTER 2024-10-29 12:43 | Emergency (ER) | payer OTHER ==
[2024-10-29 12:57] VITALS: BP 117/77; PULSE 102; RESP 20; TEMP 98.8
[2024-10-29] MEDS: HYDROmorphone 1 MG/ML 1 ML SYRINGE IM STA (13:07)
--- NOTE | 2024-10-29 13:07 | ED ---
General Adult HPI - General Chief complaint: Abdominal Pain Stated complaint: abd pain Time Seen by Provider: 10/29/24 12:56 Source: patient Mode of arrival: ambulatory Limitations: no limitations - History of Present Illness Initial comments: Dictation was produced using boo-box dictation software. please excuse any grammatical, word or spelling errors. Chief Complaint: 34-year-old male with acute on chronic abdominal pain History of Present Illness: Patient 34-year-old male he is well-known to the emergency department for multiple visitations for abdominal pain. This is patient's 10th visit this year already. Patient states he has same abdominal pain that he always has. The ROS documented in this emergency department record has been reviewed and confirmed by me. Those systems with pertinent positive or negative responses have been documented in the HPI. All other systems are other negative and/or noncontributory. - Related Data Home Medications Medication Instructions Recorded Confirmed Nicotine 21Mg/24Hr Patch [Habitrol] 1 patch TRANSDERM HS 07/18/24 07/19/24 Previous Rx's Medication Instructions Recorded ALPRAZolam [Xanax] 0.5 mg PO TID PRN #9 tablet 07/18/24 Nicotine 14Mg/24Hr Patch [Habitrol] 1 patch TRANSDERM DAILY patch 07/21/24 Omeprazole [PriLOSEC] 20 mg PO AC-BRKFST 30 Days #30 cap 07/21/24 Ziprasidone [Geodon] 20 mg PO 1700 30 Days #30 cap 07/21/24 fluvoxaMINE MALEATE 50 mg PO BID 30 Days #60 tab 07/21/24 lamoTRIgine [LaMICtal] 100 mg PO DAILY 30 Days #30 tab 07/21/24 Loperamide HCl [Imodium A-D] 2 mg PO ONCE #30 tablet 07/29/24 Simethicone [Gas-X] 125 mg PO QID #40 capsule 07/30/24 diazePAM [Valium] 2 mg PO BID PRN 3 Days #6 tab 09/03/24 Dicyclomine [Bentyl] 20 mg PO TID #30 tablet 10/03/24 Metoclopramide [Reglan] 10 mg PO Q6H PRN #20 tab 10/13/24 Docusate [Colace] 100 mg PO DAILY PRN 14 Days #14 10/21/24 capsule Allergies Allergy/AdvReac Type Severity Reaction Status Date / Time aripiprazole [From Abilify] Allergy Unknown Agitation Verified 10/29/24 12:57 cariprazine [From Vraylar] Allergy Unknown Agitation Verified 10/29/24 12:57 citalopram [From Celexa] Allergy Unknown Agitation Verified 10/29/24 12:57 divalproex sodium Allergy Unknown Agitation Verified 10/29/24 12:57 [From Depakote] paroxetine [From Paxil] Allergy Unknown Agitation Verified 10/29/24 12:57 sertraline [From Zoloft] Allergy Unknown Agitation Verified 10/29/24 12:57 metoclopramide [From Reglan] Allergy Rash/Hives Verified 10/29/24 12:57 phenobarbital AdvReac Severe Rapid Verified 10/29/24 12:57 Heart Rate zolpidem tartrate AdvReac Unknown Altered Verified 10/29/24 12:57 [From Ambien] Mental Status estropipate [From Ogen 2.5] AdvReac Twitching Verified 10/29/24 12:57 of Legs haloperidol [From Haldol] AdvReac Agitation Verified 10/29/24 12:57 ketorolac [From Toradol] AdvReac Unknown Verified 10/29/24 12:57 lorazepam [From Ativan] AdvReac Hallucinati Verified 10/29/24 12:57 ons methylprednisolone AdvReac Altered Verified 10/29/24 12:57 [From Solu-Medrol] Mental Status ondansetron [From Zofran] AdvReac Unknown Verified 10/29/24 12:57 Review of Systems ROS Statement: Those systems with pertinent positive or pertinent negative responses have been documented in the HPI. ROS Other: All systems not noted in ROS Statement are negative. 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 PT IS ABLE TO MAKE DECISIONS FOR HIMSELF,IBS History of Any Multi-Drug Resistant Organisms: None Reported Past Surgical History: Tonsillectomy Additional Past Surgical History / Comment(s): wisdom teeth removed. Past Anesthesia/Blood Transfusion Reactions: No Reported Reaction Additional Past Anesthesia/Blood Transfusion Reaction / Comment(s): NEVER HAD BLOOD TRANSFUSION Past Psychological History: ADD/ADHD, Anxiety, Bipolar, Depression, PTSD Smoking Status: Current every day smoker Past Alcohol Use History: None Reported Past Drug Use History: None Reported - Past Family History Sister(s) Additional Family Medical History / Comment(s): He has one sister that is healthy. He also has a 4-year-old daughter that is healthy. Father Family Medical History: GERD/Reflux Additional Family Medical History / Comment(s): DAD HAS ALSO NEVER BEEN AN ALCOHOLIC-RARELY, RARELY DRINKS. Mother Family Medical History: Cancer Additional Family Medical History / Comment(s): MOM STATES SHE HAS NEVER BEEN AN ALCOHOLIC-MOM RARELY ,RARELY DRINKS. HX THYROID CANCER General Exam - General Exam Comments Initial Comments: PHYSICAL EXAM: General Impression: Alert and oriented x3, not in acute distress HEENT: Normocephalic atraumatic, extra-ocular movements intact, pupils equal and reactive to light bilaterally, mucous membranes moist. Cardiovascular: Heart regular rate and rhythm Chest: Able to complete full sentences, no retractions, no tachypnea Abdomen: abdomen soft, non-tender, non-distended, no organomegaly Musculoskeletal: Pulses present and equal in all extremities, no peripheral edema Motor: no focal deficits noted Neurological: CN II-XII grossly intact, no focal motor or sensory deficits noted Skin: Intact with no visualized rashes Psych: Normal affect and mood Limitations: no limitations Course Vital Signs 10/29/24 12:54 Temperature 98.8 F Pulse Rate 102 H Respiratory 20 Rate Blood Pressure 117/77 O2 Sat by Pulse 98 Oximetry Medical Decision Making - Medical Decision Making Was pt. sent in by a medical professional or institution (, PA, WIRE SAW OPERATOR, urgent care, hospital, or long-term...) When possible be specific @ -No Did you speak to anyone other than the patient for history (EMS, parent, family, police, friend...)? What history was obtained from this source @ -No Did you review nursing and triage notes (agree or disagree)? Why? @ -I reviewed and agree with nursing and triage notes Were old charts reviewed (outside hosp., previous admission, EMS record, old EKG, old radiological studies, urgent care reports/EKG's, long-term records)? Report findings @ -No old charts were reviewed Differential Diagnosis (chest pain, altered mental status, abdominal pain women, abdominal pain men, vaginal bleeding, musculoskeletal, weakness, fever, dyspnea, syncope, headache, dizziness, GI bleed, back pain, seizure, CVA, palpatations, mental health)? @ -Differential Abdominal Pain Men: Appendicitis, cholecystitis, diverticulosis, ischemic bowel, pancreatitis, hepatitis, UTI, gastroenteritis, AAA, incarcerated hernia, bowel obstruction, constipation, inflammatory bowel, hepatitis, peptic ulcer disease, splenic infarction, perforated viscus, testicular torsion, this is not meant to be an all-inclusive list EKG interpreted by me (3pts min.). @ -None done X-rays interpreted by me (1pt min.). @ -None done CT interpreted by me (1pt min.). @ -None done U/S interpreted by me (1pt. min.). @ -None done What testing was considered but not performed or refused? (CT, X-rays, U/S, labs)? Why? @ -None What meds were considered but not given or refused? Why? @ -None Was smoking cessation discussed for >3mins.? @ -No Were there social determinants of health that impacted care today? How? (Homelessness, low income, unemployed, alcoholism, drug addiction, transportation, low edu. Level, literacy, decrease access to med. care, long-term, rehab)? @ -No Was there de-escalation of care discussed even if they declined (Discuss DNR or withdrawal of care, Hospice)? DNR status @ -No What co-morbidities impacted this encounter? (DM, HTN, Smoking, COPD, CAD, Cancer, CVA, ARF, Chemo, Hep., AIDS, mental health diagnosis, sleep apnea, morbid obesity)? @ - IBS Was patient admitted / discharged? Hospital course, mention meds given and route, prescriptions, significant lab abnormalities, going to OR and other pertinent info. @ -34-year-old male presents the emergency department yet again for abdominal pain. He has history of IBS. States that his pain feels like his usual pain. Patient had been in our ER multiple times in the last couple weeks with negative workups. Patient appears to be at baseline. I have personally seen and evaluated this patient on multiple occasions in the recent past. Abdomen is soft nonsurgical. Patient given analgesics and discharge. Did you discuss the management of the patient with other professionals (eliz greenberg i.e. , PA, WIRE SAW OPERATOR, lab, RT, psych nurse, social welfare research worker, sales and customer relations rep, teacher, strike warfare/missile systems officer, case hardener)? Give summary @ -No Was critical care preformed (if so, how long)? @ -No Undiagnosed new problem with uncertain prognosis? @ -No Drug Therapy requiring intensive monitoring for toxicity (Heparin, Nitro, Insulin, Cardizem)? @ -No Were any procedures done? @ -No Diagnosis/symptom? Acute, or Chronic, or Acute on Chronic? Uncomplicated (without systemic symptoms) or Complicated (systemic symptoms)? @ -Acute on chronic abdominal pain Side effects of treatment? @ -No Exacerbation, Progression, or Severe Exacerbation? @ -No Poses a threat to life or bodily function? How? (Chest pain, USA, [place], pneumonia, PE, COPD, DKA, ARF, appy, cholecystitis, CVA, Diverticulitis, Homicidal, Suicidal, threat to staff... and all critical care pts) @ -No Disposition Clinical Impression: Abdominal pain Disposition: HOME SELF-CARE Condition: Good Instructions (If sedation given, give patient instructions): Abdominal Pain (ED) Is patient prescribed a controlled substance at d/c from ED?: No Referrals: Sumeet Mejias III, MD [Primary Care Provider] - 1-2 days Decision Time: 13:07
== END 2024-10-29 13:12 | disposition home or self-care (01) ==
LOC: EC 12:43
DX: R10.9 Unspecified abdominal pain (principal); K58.9 Irritable bowel syndrome, unspecified; F17.200 Nicotine dependence, unspecified, uncomplicated; Z88.6 Allergy status to analgesic agent; Z88.8 Allergy status to other drugs, medicaments and biological substances
CPT/HCPCS: 99283 ×2; 96372 ×2; J1171

== ENCOUNTER 2024-10-30 13:11 | Emergency (ER) | payer OTHER ==
--- NOTE | 2024-10-30 16:02 | ED ---
Abdominal Pain HPI - General Chief Complaint: Abdominal Pain Stated Complaint: bowel movement issues Time Seen by Provider: 10/30/24 15:43 Source: patient, RN notes reviewed Mode of arrival: ambulatory Limitations: no limitations - History of Present Illness Initial Comments: This is a 34-year-old male who presents to the emergency department for abdomin al pain. Patient is well-known to this emergency department for recurrent visits related to his abdominal pain. States that this pain started 4 days ago. He was however evaluated here yesterday and states that symptoms felt better when he was given pain medication. Denies any nausea or vomiting. Denies any diarrhea or constipation. - Related Data Home Medications Medication Instructions Recorded Confirmed Nicotine 21Mg/24Hr Patch [Habitrol] 1 patch TRANSDERM HS 07/18/24 07/19/24 Previous Rx's Medication Instructions Recorded ALPRAZolam [Xanax] 0.5 mg PO TID PRN #9 tablet 07/18/24 Nicotine 14Mg/24Hr Patch [Habitrol] 1 patch TRANSDERM DAILY patch 07/21/24 Omeprazole [PriLOSEC] 20 mg PO AC-BRKFST 30 Days #30 cap 07/21/24 Ziprasidone [Geodon] 20 mg PO 1700 30 Days #30 cap 07/21/24 fluvoxaMINE MALEATE 50 mg PO BID 30 Days #60 tab 07/21/24 lamoTRIgine [LaMICtal] 100 mg PO DAILY 30 Days #30 tab 07/21/24 Loperamide HCl [Imodium A-D] 2 mg PO ONCE #30 tablet 07/29/24 Simethicone [Gas-X] 125 mg PO QID #40 capsule 07/30/24 diazePAM [Valium] 2 mg PO BID PRN 3 Days #6 tab 09/03/24 Dicyclomine [Bentyl] 20 mg PO TID #30 tablet 10/03/24 Metoclopramide [Reglan] 10 mg PO Q6H PRN #20 tab 10/13/24 Docusate [Colace] 100 mg PO DAILY PRN 14 Days #14 10/21/24 capsule Allergies Allergy/AdvReac Type Severity Reaction Status Date / Time aripiprazole [From Abilify] Allergy Unknown Agitation Verified 10/29/24 12:57 cariprazine [From Vraylar] Allergy Unknown Agitation Verified 10/29/24 12:57 citalopram [From Celexa] Allergy Unknown Agitation Verified 10/29/24 12:57 divalproex sodium Allergy Unknown Agitation Verified 10/29/24 12:57 [From Depakote] paroxetine [From Paxil] Allergy Unknown Agitation Verified 10/29/24 12:57 sertraline [From Zoloft] Allergy Unknown Agitation Verified 10/29/24 12:57 metoclopramide [From Reglan] Allergy Rash/Hives Verified 10/29/24 12:57 phenobarbital AdvReac Severe Rapid Verified 10/29/24 12:57 Heart Rate zolpidem tartrate AdvReac Unknown Altered Verified 10/29/24 12:57 [From Ambien] Mental Status estropipate [From Ogen 2.5] AdvReac Twitching Verified 10/29/24 12:57 of Legs haloperidol [From Haldol] AdvReac Agitation Verified 10/29/24 12:57 ketorolac [From Toradol] AdvReac Unknown Verified 10/29/24 12:57 lorazepam [From Ativan] AdvReac Hallucinati Verified 10/29/24 12:57 ons methylprednisolone AdvReac Altered Verified 10/29/24 12:57 [From Solu-Medrol] Mental Status ondansetron [From Zofran] AdvReac Unknown Verified 10/29/24 12:57 Review of Systems ROS Statement: Those systems with pertinent positive or pertinent negative responses have been documented in the HPI. ROS Other: All systems not noted in ROS Statement are negative. 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 PT IS ABLE TO MAKE DECISIONS FOR HIMSELF,IBS History of Any Multi-Drug Resistant Organisms: None Reported Past Surgical History: Tonsillectomy Additional Past Surgical History / Comment(s): wisdom teeth removed. Past Anesthesia/Blood Transfusion Reactions: No Reported Reaction Additional Past Anesthesia/Blood Transfusion Reaction / Comment(s): NEVER HAD BLOOD TRANSFUSION Past Psychological History: ADD/ADHD, Anxiety, Bipolar, Depression, PTSD Smoking Status: Current every day smoker Past Alcohol Use History: None Reported Past Drug Use History: None Reported - Past Family History Sister(s) Additional Family Medical History / Comment(s): He has one sister that is healthy. He also has a 4-year-old daughter that is healthy. Father Family Medical History: GERD/Reflux Additional Family Medical History / Comment(s): DAD HAS ALSO NEVER BEEN AN ALCOHOLIC-RARELY, RARELY DRINKS. Mother Family Medical History: Cancer Additional Family Medical History / Comment(s): MOM STATES SHE HAS NEVER BEEN AN ALCOHOLIC-MOM RARELY ,RARELY DRINKS. HX THYROID CANCER General Exam Limitations: no limitations General appearance: alert, in no apparent distress Head exam: Present: atraumatic, normocephalic, normal inspection Respiratory exam: Present: normal lung sounds bilaterally. Absent: respiratory distress, wheezes, rales, rhonchi, stridor Cardiovascular Exam: Present: regular rate, normal rhythm GI/Abdominal exam: Present: soft, normal bowel sounds. Absent: distended, tenderness, guarding, rebound, rigid Neurological exam: Present: alert, oriented X3, CN II-XII intact Psychiatric exam: Present: normal affect, normal mood Skin exam: Present: warm, dry, intact, normal color. Absent: rash Course Vital Signs 10/30/24 10/30/24 10/30/24 13:25 15:38 17:17 Temperature 97.3 F L Pulse Rate 100 98 80 Respiratory 20 20 18 Rate Blood Pressure 109/70 115/70 117/71 O2 Sat by Pulse 98 98 98 Oximetry 10/30/24 18:36 Temperature 98.4 F Pulse Rate 62 Respiratory 18 Rate Blood Pressure 120/71 O2 Sat by Pulse 96 Oximetry Medical Decision Making - Medical Decision Making This is a 34-year-old male who presents to the emergency department for abdominal pain. Was pt. sent in by a medical professional or institution? @ -No Did you speak to anyone other than the patient for history? @ -No Did you review nursing and triage notes? @ -Yes, and I agree, it is accurate with regards to the patient's symptoms. Were old charts reviewed? @ -No Differential Diagnosis? @ -Differential Abdominal Pain Men: Appendicitis, cholecystitis, diverticulosis, ischemic bowel, pancreatitis, hepatitis, UTI, gastroenteritis, AAA, incarcerated hernia, bowel obstruction, constipation, inflammatory bowel, hepatitis, peptic ulcer disease, splenic infarction, perforated viscus, testicular torsion, this is not meant to be an all-inclusive list EKG interpreted by me (3pts min.)? @ -Not obtained X-rays interpreted by me (1pt min.)? @ -Not obtained CT interpreted by me (1pt min.)? @ -Not obtained U/S interpreted by me (1pt. min.)? @ -Not obtained What testing was considered but not performed? (CT, X-rays, U/S, labs)? Why? @ -None What meds were considered but not given? Why? @ -None Did you discuss the management of the patient with other professionals? @ -No Did you reconcile home meds? @ -No Was smoking cessation discussed for >3mins.? @ -No Was critical care preformed (if so, how long)? @ -No Were there social determinants of health that impacted care today? How? (Homelessness, low income, unemployed, alcoholism, drug addiction, transportation, low edu. Level, literacy, decrease access to med. care, long term, rehab)? @ -No Was there de-escalation of care discussed even if they declined? (Discuss DNR or withdrawal of care, Hospice)? @ -No What co-morbidities impacted this encounter? (DM, HTN, Smoking, COPD, CAD, Cancer, CVA, Hep., AIDS, mental health diagnosis, sleep apnea, morbid obesity)? @ -None Was patient admitted / discharged? @ -Discharged. Lab work unremarkable. Patient's symptoms were well-controlled in the emergency department. Patient has been here multiple times for the same complaint. Advised that he needs to follow-up with his primary care provider or keyseater operator for further evaluation of ongoing symptoms and discussion of additional treatment options. Patient advised that he does have an appointment with his primary care provider next week and will follow-up as scheduled. Patient discharged home in stable condition. Case discussed with ED attending Dr. Garg. Return precautions reviewed in depth, the patient is instructed to return to the emergency department with any new, worsening, or concerning symptoms. Patient verbalized understanding. Undiagnosed new problem with uncertain prognosis? @ -None Drug Therapy requiring intensive monitoring for toxicity (Heparin, Nitro, Insulin, Cardizem)? @ -None Were any procedures done? @ -None Diagnosis/symptom? @ -Abdominal pain Acute, or Chronic, or Acute on Chronic? @ -Acute Uncomplicated (without systemic symptoms) or Complicated (systemic symptoms)? @ -Uncomplicated Side effects of treatment? @ -None Exacerbation, Progression, or Severe Exacerbation] @ -Not applicable Poses a threat to life or bodily function? @ -No - Lab Data Result diagrams: 10/30/24 15:46 10/30/24 17:25 Lab Results 10/30/24 10/30/24 10/30/24 Range/Units 15:46 15:46 17:25 WBC 7.2 (3.8-10.6) k/uL RBC 5.06 (4.30-5.90) m/uL Hgb 15.0 (13.0-17.5) gm/dL Hct 47.2 (39.0-53.0) % MCV 93.3 (80.0-100.0) fL MCH 29.7 (25.0-35.0) pg MCHC 31.8 (31.0-37.0) g/dL RDW 13.0 (11.5-15.5) % Plt Count 234 (150-450) k/uL MPV 8.0 Neutrophils % 74 % Lymphocytes % 18 % Monocytes % 5 % Eosinophils % 2 % Basophils % 0 % Neutrophils # 5.3 (1.3-7.7) k/uL Lymphocytes # 1.3 (1.0-4.8) k/uL Monocytes # 0.4 (0-1.0) k/uL Eosinophils # 0.1 (0-0.7) k/uL Basophils # 0.0 (0-0.2) k/uL Sodium 140 (137-145) mmol/L Potassium 3.7 (3.5-5.1) mmol/L Chloride 103 (98-107) mmol/L Carbon Dioxide 28 (22-30) mmol/L Anion Gap 9 mmol/L BUN 10 (9-20) mg/dL Creatinine 0.71 (0.66-1.25) mg/dL Est GFR (CKD-EPI)AfAm >90 (>60 ml/min/1.73 sqM) Est GFR (CKD-EPI)NonAf >90 (>60 ml/min/1.73 sqM) Glucose 81 (74-99) mg/dL Plasma Lactic Acid Socrates 1.8 (0.7-2.0) mmol/L Calcium 9.1 (8.4-10.2) mg/dL Total Bilirubin 0.5 (0.2-1.3) mg/dL AST 24 (17-59) U/L ALT 18 (4-49) U/L Alkaline Phosphatase 85 (38-126) U/L Total Protein 6.1 L (6.3-8.2) g/dL Albumin 4.0 (3.5-5.0) g/dL Disposition Clinical Impression: Abdominal pain Disposition: HOME SELF-CARE Instructions (If sedation given, give patient instructions): Abdominal Pain (ED) Additional Instructions: Return to the emergency department with any new, worsening, or concerning symptoms. Follow up with your primary care provider in 1-2 days. Is patient prescribed a controlled substance at d/c from ED?: No Referrals: Sumeet Mejias III, MD [Primary Care Provider] - 1-2 days Time of Disposition: 18:25
[2024-10-30] MEDS: SODIUM CHLORIDE 0.9% 1,000 ML IV STA (16:03)
[2024-10-30] MEDS: HYDROmorphone 1 MG/ML 1 ML SYRINGE IVP STA ×2 (16:04→17:30)
[2024-10-30 16:17] LABS: Basophils % (A) 0 %; Eosinophils # (A) 0.1 k/uL (0-0.7); Eosinophils % (A) 2 %; HCT 47.2 % (39.0-53.0); Lymphocytes # (A) 1.3 k/uL (1.0-4.8); Lymphocytes % (A) 18 %; MCH 29.7 pg (25.0-35.0); MCHC 31.8 g/dL (31.0-37.0); MCV 93.3 fL (80.0-100.0); Monocytes # (A) 0.4 k/uL (0-1.0); Monocytes % (A) 5 %; Neutrophils # (A) 5.3 k/uL (1.3-7.7); Neutrophils % (A) 74 %; Platelet Count 234 k/uL (150-450); RBC 5.06 m/uL (4.30-5.90); WBC 7.2 k/uL (3.8-10.6)
[2024-10-30] MEDS: HYOSCYAMINE SULFATE 0.125 MG TAB PO STA (17:31)
[2024-10-30 18:23] LABS: ALT 18 U/L (4-49); AST 24 U/L (17-59); African American GFR (CKD) >90 (>60 ml/min/1.73 sqM); Alkaline Phosphatase 85 U/L (38-126); Anion Gap 9 mmol/L; Blood Urea Nitrogen 10 mg/dL (9-20); Calcium 9.1 mg/dL (8.4-10.2); Carbon Dioxide 28 mmol/L (22-30); Chloride 103 mmol/L (98-107); Glucose 81 mg/dL (74-99); Non-African American GFR(CKD) >90 (>60 ml/min/1.73 sqM); Potassium 3.7 mmol/L (3.5-5.1); Sodium 140 mmol/L (137-145); Total Bilirubin 0.5 mg/dL (0.2-1.3); Total Protein 6.1 g/dL (6.3-8.2)
[2024-10-30 18:31] VITALS: RESP 18
[2024-10-30 18:40] VITALS: BP 120/71; PULSE 62; TEMP 98.4
== END 2024-10-30 18:40 | disposition home or self-care (01) ==
LOC: EC 13:11
DX: R10.9 Unspecified abdominal pain (principal); F17.200 Nicotine dependence, unspecified, uncomplicated; Z88.8 Allergy status to other drugs, medicaments and biological substances; Z88.6 Allergy status to analgesic agent
CPT/HCPCS: 36415; 80053; 83605; 85025; 99284; 96374; 96375; 96361 ×2; J1171

== ENCOUNTER 2024-11-01 01:49 | Emergency (ER) | payer OTHER ==
[2024-11-01 01:55] VITALS: TEMP 98.7
[2024-11-01] MEDS: DICYCLOMINE 10 MG/ML 2 ML AMP IM STA (02:30)
[2024-11-01] MEDS: SODIUM CHLORIDE 0.9% 1,000 ML IV STA (02:30)
[2024-11-01 02:47] LABS: Basophils % (A) 1 %; Eosinophils # (A) 0.1 k/uL (0-0.7); Eosinophils % (A) 2 %; HCT 46.6 % (39.0-53.0); HGB 15.2 gm/dL (13.0-17.5); Lymphocytes # (A) 2.1 k/uL (1.0-4.8); Lymphocytes % (A) 29 %; MCH 30.7 pg (25.0-35.0); MCHC 32.6 g/dL (31.0-37.0); MCV 94.2 fL (80.0-100.0); Mean Platelet Volume 7.6; Monocytes # (A) 0.4 k/uL (0-1.0); Monocytes % (A) 5 %; Neutrophils # (A) 4.6 k/uL (1.3-7.7); Neutrophils % (A) 63 %; Platelet Count 217 k/uL (150-450); RBC 4.95 m/uL (4.30-5.90); RDW 13.3 % (11.5-15.5); WBC 7.3 k/uL (3.8-10.6)
[2024-11-01 02:55] LABS: ALT 22 U/L (4-49); AST 25 U/L (17-59); African American GFR (CKD) >90 (>60 ml/min/1.73 sqM); Albumin 4.8 g/dL (3.5-5.0); Alkaline Phosphatase 108 U/L (38-126); Amylase 40 U/L (30-110); Anion Gap 12 mmol/L; Blood Urea Nitrogen 14 mg/dL (9-20); Calcium 9.7 mg/dL (8.4-10.2); Carbon Dioxide 31 mmol/L (22-30); Chloride 98 mmol/L (98-107); Glucose 98 mg/dL (74-99); Lipase 25 U/L (23-300); Non-African American GFR(CKD) >90 (>60 ml/min/1.73 sqM); Potassium 3.5 mmol/L (3.5-5.1); Sodium 141 mmol/L (137-145); Total Bilirubin 0.5 mg/dL (0.2-1.3); Total Protein 7.1 g/dL (6.3-8.2)
[2024-11-01 03:52] LABS: Amorphous Sediment,Urine Few /hpf; Appearance,Urine Turbid (Clear); Bilirubin,Urine Negative (Negative); Blood,Urine Negative (Negative); Color,Urine Yellow; Glucose,Urine (UA) Negative (Negative); Ketones,Urine Negative (Negative); Leukocyte Esterase,Urine Negative (Negative); Mucus,Urine Many /hpf; Nitrite,Urine Negative (Negative); PH, Urine 6.5 (5.0-8.0); Protein,Urine 1+ (Negative); RBC,Urine 2 /hpf (0-5); Specific Gravity,Urine 1.031 (1.001-1.035); WBC,Urine 2 /hpf (0-5)
--- NOTE | 2024-11-01 03:59 | ED ---
Abdominal Pain HPI <Carley Gurera - Last Filed: 11/01/24 19:19> - General Source: patient Mode of arrival: ambulatory Limitations: no limitations <Dc Calix - Last Filed: 11/01/24 19:33> - General Chief Complaint: Abdominal Pain Stated Complaint: Abd Pain,NVD Time Seen by Provider: 11/01/24 01:56 - History of Present Illness Initial Comments: 84-year-old male presenting with chief complaint of abdominal pain. This is a diffuse pain that he describes as sharp and stabbing. Patient has history of IBS and has been seen here on multiple occasions for the same pain. He states this pain is not different than usual. He admits to diarrhea. Some nausea no vomiting. No urinary symptoms. No fever. No blood in his stool or emesis. No URI-like symptoms. No chest pain or difficulty breathing. (Dc Calix) - Related Data Home Medications Medication Instructions Recorded Confirmed Nicotine 21Mg/24Hr Patch [Habitrol] 1 patch TRANSDERM HS 07/18/24 07/19/24 Previous Rx's Medication Instructions Recorded ALPRAZolam [Xanax] 0.5 mg PO TID PRN #9 tablet 07/18/24 Nicotine 14Mg/24Hr Patch [Habitrol] 1 patch TRANSDERM DAILY patch 07/21/24 Omeprazole [PriLOSEC] 20 mg PO AC-BRKFST 30 Days #30 cap 07/21/24 Ziprasidone [Geodon] 20 mg PO 1700 30 Days #30 cap 07/21/24 fluvoxaMINE MALEATE 50 mg PO BID 30 Days #60 tab 07/21/24 lamoTRIgine [LaMICtal] 100 mg PO DAILY 30 Days #30 tab 07/21/24 Loperamide HCl [Imodium A-D] 2 mg PO ONCE #30 tablet 07/29/24 Simethicone [Gas-X] 125 mg PO QID #40 capsule 07/30/24 diazePAM [Valium] 2 mg PO BID PRN 3 Days #6 tab 09/03/24 Dicyclomine [Bentyl] 20 mg PO TID #30 tablet 10/03/24 Metoclopramide [Reglan] 10 mg PO Q6H PRN #20 tab 10/13/24 Docusate [Colace] 100 mg PO DAILY PRN 14 Days #14 02/15/25 capsule Allergies Allergy/AdvReac Type Severity Reaction Status Date / Time aripiprazole [From Abilify] Allergy Unknown Agitation Verified 11/01/24 01:54 cariprazine [From Vraylar] Allergy Unknown Agitation Verified 11/01/24 01:54 citalopram [From Celexa] Allergy Unknown Agitation Verified 11/01/24 01:54 divalproex sodium Allergy Unknown Agitation Verified 11/01/24 01:54 [From Depakote] paroxetine [From Paxil] Allergy Unknown Agitation Verified 11/01/24 01:54 sertraline [From Zoloft] Allergy Unknown Agitation Verified 11/01/24 01:54 metoclopramide [From Reglan] Allergy Rash/Hives Verified 11/01/24 01:54 phenobarbital AdvReac Severe Rapid Verified 11/01/24 01:54 Heart Rate zolpidem tartrate AdvReac Unknown Altered Verified 11/01/24 01:54 [From Ambien] Mental Status dicyclomine [From Bentyl] AdvReac Rapid Verified 11/01/24 10:02 Heart Rate estropipate [From Ogen 2.5] AdvReac Twitching Verified 11/01/24 01:54 of Legs haloperidol [From Haldol] AdvReac Agitation Verified 11/01/24 01:54 ketorolac [From Toradol] AdvReac Unknown Verified 11/01/24 01:54 lorazepam [From Ativan] AdvReac Hallucinati Verified 11/01/24 01:54 ons methylprednisolone AdvReac Altered Verified 11/01/24 01:54 [From Solu-Medrol] Mental Status ondansetron [From Zofran] AdvReac Unknown Verified 11/01/24 01:54 Review of Systems ROS Other: All systems not noted in ROS Statement are negative. <Carley Guerra - Last Filed: 11/01/24 19:19> ROS Other: All systems not noted in ROS Statement are negative. <Dc Calix - Last Filed: 11/01/24 19:33> ROS Statement: Those systems with pertinent positive or pertinent negative responses have been documented in the HPI. 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 PT IS ABLE TO MAKE DECISIONS FOR HIMSELF,IBS History of Any Multi-Drug Resistant Organisms: None Reported Past Surgical History: Tonsillectomy Additional Past Surgical History / Comment(s): wisdom teeth removed. Past Anesthesia/Blood Transfusion Reactions: No Reported Reaction Additional Past Anesthesia/Blood Transfusion Reaction / Comment(s): NEVER HAD BLOOD TRANSFUSION Past Psychological History: ADD/ADHD, Anxiety, Bipolar, Depression, PTSD Smoking Status: Current every day smoker Past Alcohol Use History: None Reported Past Drug Use History: None Reported - Past Family History Sister(s) Additional Family Medical History / Comment(s): He has one sister that is healthy. He also has a 4-year-old daughter that is healthy. Father Family Medical History: GERD/Reflux Additional Family Medical History / Comment(s): DAD HAS ALSO NEVER BEEN AN ALCOHOLIC-RARELY, RARELY DRINKS. Mother Family Medical History: Cancer Additional Family Medical History / Comment(s): MOM STATES SHE HAS NEVER BEEN AN ALCOHOLIC-MOM RARELY ,RARELY DRINKS. HX THYROID CANCER <Dc Calix - Last Filed: 11/01/24 19:33> General Exam Limitations: no limitations General appearance: alert, in no apparent distress Head exam: Present: atraumatic, normocephalic, normal inspection Eye exam: Present: normal appearance, EOMI Neck exam: Present: normal inspection. Absent: meningismus Respiratory exam: Present: normal lung sounds bilaterally. Absent: respiratory distress, wheezes, rales, rhonchi, stridor Cardiovascular Exam: Present: regular rate, normal rhythm, normal heart sounds. Absent: systolic murmur, diastolic murmur, rubs, gallop, clicks GI/Abdominal exam: Present: soft, tenderness (Diffuse discomfort, no localized tenderness). Absent: distended, guarding, rebound, rigid Neurological exam: Present: alert, oriented X3 Psychiatric exam: Present: normal affect, normal mood Skin exam: Present: warm, dry, normal color <Dc Calix - Last Filed: 11/01/24 19:33> Course Vital Signs 11/01/24 11/01/24 01:52 04:15 Temperature 98.7 F Pulse Rate 102 H 94 Respiratory 20 18 Rate Blood Pressure 123/78 120/74 O2 Sat by Pulse 99 99 Oximetry Medical Decision Making - Lab Data Result diagrams: 11/01/24 02:18 11/01/24 02:18 <Carley Guerra - Last Filed: 11/01/24 19:19> - Lab Data Result diagrams: 11/01/24 02:18 11/01/24 02:18 <Dc Calix - Last Filed: 11/01/24 19:33> - Medical Decision Making Was pt. sent in by a medical professional or institution (, PA, ABRASIVES SALES REPRESENTATIVE, urgent c are, hospital, or jail...) When possible be specific @ -No Did you speak to anyone other than the patient for history (EMS, parent, family, police, friend...)? What history was obtained from this source @ -No Did you review nursing and triage notes (agree or disagree)? Why? @ -I reviewed and agree with nursing and triage notes Were old charts reviewed (outside hosp., previous admission, EMS record, old EKG, old radiological studies, urgent care reports/EKG's, jail records)? Report findings @ -No old charts were reviewed Differential Diagnosis (chest pain, altered mental status, abdominal pain women, abdominal pain men, vaginal bleeding, weakness, fever, dyspnea, syncope, headache, dizziness, GI bleed, back pain, seizure, CVA, palpatations, mental health, musculoskeletal)? @ -MDM Differential Abdominal Pain Men: Appendicitis, cholecystitis, diverticulosis, ischemic bowel, pancreatitis, hepatitis, UTI, gastroenteritis, AAA, incarcerated hernia, bowel obstruction, constipation, inflammatory bowel, hepatitis, peptic ulcer disease, splenic infarction, perforated viscus, testicular torsion... This is not meant to be an all-inclusive list EKG interpreted by me (3pts min.). @ -As above X-rays interpreted by me (1pt min.). @ -None done CT interpreted by me (1pt min.). @ -None done U/S interpreted by me (1pt. min.). @ -None done What testing was considered but not performed or refused? (CT, X-rays, U/S, labs)? Why? @ -None What meds were considered but not given or refused? Why? @ -None Did you discuss the management of the patient with other professionals (professionals i.e. , PA, ABRASIVES SALES REPRESENTATIVE, lab, RT, psych nurse, social services assistant, label paster, teacher, transit authority police officer, family independence case manager)? Give summary @ -No Was smoking cessation discussed for >3mins.? @ -No Was critical care preformed (if so, how long)? @ -No Were there social determinants of health that impacted care today? How? (Homelessness, low income, unemployed, alcoholism, drug addiction, transportat ion, low edu. Level, literacy, decrease access to med. care, half-way, rehab)? @ -No Was there de-escalation of care discussed even if they declined (Discuss DNR or withdrawal of care, Hospice)? DNR status @ -No What co-morbidities impacted this encounter? (DM, HTN, Smoking, COPD, CAD, Cancer, CVA, ARF, Chemo, Hep., AIDS, mental health diagnosis, sleep apnea, morbid obesity)? @ -None Was patient admitted / discharged? Hospital course, mention meds given and route, prescriptions, significant lab abnormalities, going to OR and other pertinent info. @ -34-year-old male presenting with chief complaint of abdominal pain and diarrhea. History of IBS. Has been seen here for similar episodes of pain on multiple occasions. History of physical examination are conducted. Lactic acid 2.4, patient is receiving IV fluids. Urine shows no infectious process or bleeding. Amylase and lipase are WNL. No leukocytosis or anemia. Patient is given Bentyl for his IBS. He is educated on today's findings and management plan. He is instructed that he needs to follow-up with GI and PCP. Report back to ER with any new or worsening symptoms. Discussed return parameters and answered all questions. Patient conveyed verbal understanding and agreed to the plan. I discussed this case in detail with my attending Dr. Brown Undiagnosed new problem with uncertain prognosis? @ -No Drug Therapy requiring intensive monitoring for toxicity (Heparin, Nitro, Insulin, Cardizem)? @ -No Were any procedures done? @ -No Diagnosis/symptom? @ -Abdominal pain Acute, or Chronic, or Acute on Chronic? @ -Acute on chronic Uncomplicated (without systemic symptoms) or Complicated (systemic symptoms)? @ -Uncomplicated Side effects of treatment? @ -No Exacerbation, Progression, or Severe Exacerbation? @ -No Poses a threat to life or bodily function? How? (Chest pain, [place], [place], pneumonia, PE, COPD, DKA, ARF, appy, cholecystitis, CVA, Diverticulitis, Homicidal, Suicidal, threat to staff... and all critical care pts) @ -Low likelihood (Dc Calix) - Lab Data Lab Results 11/01/24 11/01/24 11/01/24 Range/Units 02:18 02:18 02:18 WBC 7.3 (3.8-10.6) k/uL RBC 4.95 (4.30-5.90) m/uL Hgb 15.2 (13.0-17.5) gm/dL Hct 46.6 (39.0-53.0) % MCV 94.2 (80.0-100.0) fL MCH 30.7 (25.0-35.0) pg MCHC 32.6 (31.0-37.0) g/dL RDW 13.3 (11.5-15.5) % Plt Count 217 (150-450) k/uL MPV 7.6 Neutrophils % 63 % Lymphocytes % 29 % Monocytes % 5 % Eosinophils % 2 % Basophils % 1 % Neutrophils # 4.6 (1.3-7.7) k/uL Lymphocytes # 2.1 (1.0-4.8) k/uL Monocytes # 0.4 (0-1.0) k/uL Eosinophils # 0.1 (0-0.7) k/uL Basophils # 0.0 (0-0.2) k/uL Sodium 141 (137-145) mmol/L Potassium 3.5 (3.5-5.1) mmol/L Chloride 98 (98-107) mmol/L Carbon Dioxide 31 H (22-30) mmol/L Anion Gap 12 mmol/L BUN 14 (9-20) mg/dL Creatinine 0.81 (0.66-1.25) mg/dL Est GFR (CKD-EPI)AfAm >90 (>60 ml/min/1.73 sqM) Est GFR (CKD-EPI)NonAf >90 (>60 ml/min/1.73 sqM) Glucose 98 (74-99) mg/dL Lactic Ac Sepsis Rflx Plasma Lactic Acid Socrates (0.7-2.0) mmol/L Calcium 9.7 (8.4-10.2) mg/dL Total Bilirubin 0.5 (0.2-1.3) mg/dL AST 25 (17-59) U/L ALT 22 (4-49) U/L Alkaline Phosphatase 108 (38-126) U/L Total Protein 7.1 (6.3-8.2) g/dL Albumin 4.8 (3.5-5.0) g/dL Amylase 40 (30-110) U/L Lipase 25 (23-300) U/L Urine Color Yellow Urine Appearance Turbid (Clear) Urine pH 6.5 (5.0-8.0) Ur Specific [place] 1.031 (1.001-1.035) Urine Protein 1+ H (Negative) Urine Glucose (UA) Negative (Negative) Urine Ketones Negative (Negative) Urine Blood Negative (Negative) Urine Nitrite Negative (Negative) Urine Bilirubin Negative (Negative) Urine Urobilinogen 3.0 (<2.0) mg/dL Ur Leukocyte Esterase Negative (Negative) Urine RBC 2 (0-5) /hpf Urine WBC 2 (0-5) /hpf Amorphous Sediment Few H (None) /hpf Urine Mucus Many H (None) /hpf 11/01/24 11/01/24 Range/Units 02:18 03:32 WBC (3.8-10.6) k/uL RBC (4.30-5.90) m/uL Hgb (13.0-17.5) gm/dL Hct (39.0-53.0) % MCV (80.0-100.0) fL MCH (25.0-35.0) pg MCHC (31.0-37.0) g/dL RDW (11.5-15.5) % Plt Count (150-450) k/uL MPV Neutrophils % % Lymphocytes % % Monocytes % % Eosinophils % % Basophils % % Neutrophils # (1.3-7.7) k/uL Lymphocytes # (1.0-4.8) k/uL Monocytes # (0-1.0) k/uL Eosinophils # (0-0.7) k/uL Basophils # (0-0.2) k/uL Sodium (137-145) mmol/L Potassium (3.5-5.1) mmol/L Chloride (98-107) mmol/L Carbon Dioxide (22-30) mmol/L Anion Gap mmol/L BUN (9-20) mg/dL Creatinine (0.66-1.25) mg/dL Est GFR (CKD-EPI)AfAm (>60 ml/min/1.73 sqM) Est GFR (CKD-EPI)NonAf (>60 ml/min/1.73 sqM) Glucose (74-99) mg/dL Lactic Ac Sepsis Rflx Y Plasma Lactic Acid Socrates 2.4 H* (0.7-2.0) mmol/L Calcium (8.4-10.2) mg/dL Total Bilirubin (0.2-1.3) mg/dL AST (17-59) U/L ALT (4-49) U/L Alkaline Phosphatase (38-126) U/L Total Protein (6.3-8.2) g/dL Albumin (3.5-5.0) g/dL Amylase (30-110) U/L Lipase (23-300) U/L Urine Color Urine Appearance (Clear) Urine pH (5.0-8.0) Ur Specific [place] (1.001-1.035) Urine Protein (Negative) Urine Glucose (UA) (Negative) Urine Ketones (Negative) Urine Blood (Negative) Urine Nitrite (Negative) Urine Bilirubin (Negative) Urine Urobilinogen (<2.0) mg/dL Ur Leukocyte Esterase (Negative) Urine RBC (0-5) /hpf Urine WBC (0-5) /hpf Amorphous Sediment (None) /hpf Urine Mucus (None) /hpf Disposition <Carley Guerra - Last Filed: 11/01/24 19:19> Is patient prescribed a controlled substance at d/c from ED?: No Time of Disposition: 03:58 <Dc Calix - Last Filed: 11/01/24 19:33> Clinical Impression: Abdominal pain Disposition: HOME SELF-CARE Condition: Good Instructions (If sedation given, give patient instructions): Abdominal Pain (ED) Additional Instructions: Follow-up with PCP and GI. Report back to ER with any new or worsening symptoms. Referrals: Sumeet Mejias III, MD [Primary Care Provider] - 1-2 days Melissa Mendoza MD [STAFF PHYSICIAN] - 1-2 days
[2024-11-01 04:17] VITALS: BP 120/74; PULSE 94; RESP 18
== END 2024-11-01 04:17 | disposition home or self-care (01) ==
LOC: EC 01:49
DX: R10.9 Unspecified abdominal pain (principal); F17.200 Nicotine dependence, unspecified, uncomplicated
CPT/HCPCS: 36415; 80053; 82150; 83605; 83690; 85025; 81001; 99284; 96360; 96372; J0500

== ENCOUNTER 2024-11-01 09:55 | Emergency (ER) | payer OTHER ==
[2024-11-01 10:02] VITALS: RESP 20; TEMP 97.6
[2024-11-01] MEDS: MORPHINE SULFATE 4 MG/ML SYRINGE IVP STA (10:29)
[2024-11-01] MEDS: SODIUM CHLORIDE 0.9% 1,000 ML IV STA (10:30)
[2024-11-01] MEDS: DICYCLOMINE 20 MG TAB PO STA (10:31)
[2024-11-01 11:01] LABS: ALT 19 U/L (4-49); AST 27 U/L (17-59); African American GFR (CKD) >90 (>60 ml/min/1.73 sqM); Alkaline Phosphatase 97 U/L (38-126); Anion Gap 12 mmol/L; Blood Urea Nitrogen 10 mg/dL (9-20); Calcium 9.8 mg/dL (8.4-10.2); Carbon Dioxide 26 mmol/L (22-30); Chloride 103 mmol/L (98-107); Glucose 105 mg/dL (74-99); Lipase 15 U/L (23-300); Non-African American GFR(CKD) >90 (>60 ml/min/1.73 sqM); Potassium 3.8 mmol/L (3.5-5.1); Sodium 141 mmol/L (137-145); Total Bilirubin 0.5 mg/dL (0.2-1.3); Total Protein 7.3 g/dL (6.3-8.2)
[2024-11-01 11:15] LABS: Basophils % (A) 0 %; Eosinophils # (A) 0.1 k/uL (0-0.7); Eosinophils % (A) 1 %; HCT 43.2 % (39.0-53.0); Lymphocytes # (A) 1.6 k/uL (1.0-4.8); Lymphocytes % (A) 18 %; MCHC 32.3 g/dL (31.0-37.0); MCV 92.7 fL (80.0-100.0); Mean Platelet Volume 7.7; Monocytes # (A) 0.3 k/uL (0-1.0); Monocytes % (A) 4 %; Neutrophils # (A) 6.5 k/uL (1.3-7.7); Neutrophils % (A) 76 %; Platelet Count 218 k/uL (150-450); RBC 4.66 m/uL (4.30-5.90); RDW 13.8 % (11.5-15.5); WBC 8.6 k/uL (3.8-10.6)
[2024-11-01] MEDS: ACETAMINOPHEN TAB 500 MG TAB PO STA (11:16)
[2024-11-01] MEDS: MORPHINE SULFATE 2 MG/ML SYRINGE IVP ONE (11:16)
[2024-11-01] MEDS: FAMOTIDINE 20 MG/2 ML VIAL IV STA (11:17)
--- NOTE | 2024-11-01 12:18 | ED ---
Abdominal Pain HPI - General Chief Complaint: Abdominal Pain Stated Complaint: abdominal pain Time Seen by Provider: 11/01/24 10:05 Source: patient, RN notes reviewed Mode of arrival: ambulatory Limitations: no limitations - History of Present Illness Initial Comments: 34-year-old male well-known to ER presenting for abdominal pain x 1 day. States he describes a crampy, sharp pain in the center of his abdomen similar to previous IBS flares. States he was evaluated in the ER earlier this morning for same symptoms and was discharged with a negative workup. States pain is continuing to worsen. Denies fever, nausea, vomiting, diarrhea, constipation. Denies history of abdominal surgeries. - Related Data Home Medications Medication Instructions Recorded Confirmed Nicotine 21Mg/24Hr Patch [Habitrol] 1 patch TRANSDERM HS 07/18/24 07/19/24 Previous Rx's Medication Instructions Recorded ALPRAZolam [Xanax] 0.5 mg PO TID PRN #9 tablet 07/18/24 Nicotine 14Mg/24Hr Patch [Habitrol] 1 patch TRANSDERM DAILY patch 07/21/24 Omeprazole [PriLOSEC] 20 mg PO AC-BRKFST 30 Days #30 cap 07/21/24 Ziprasidone [Geodon] 20 mg PO 1700 30 Days #30 cap 07/21/24 fluvoxaMINE MALEATE 50 mg PO BID 30 Days #60 tab 07/21/24 lamoTRIgine [LaMICtal] 100 mg PO DAILY 30 Days #30 tab 07/21/24 Loperamide HCl [Imodium A-D] 2 mg PO ONCE #30 tablet 07/29/24 Simethicone [Gas-X] 125 mg PO QID #40 capsule 07/30/24 diazePAM [Valium] 2 mg PO BID PRN 3 Days #6 tab 09/03/24 Dicyclomine [Bentyl] 20 mg PO TID #30 tablet 10/03/24 Metoclopramide [Reglan] 10 mg PO Q6H PRN #20 tab 10/13/24 Docusate [Colace] 100 mg PO DAILY PRN 14 Days #14 10/21/24 capsule Allergies Allergy/AdvReac Type Severity Reaction Status Date / Time aripiprazole [From Abilify] Allergy Unknown Agitation Verified 11/01/24 01:54 cariprazine [From Vraylar] Allergy Unknown Agitation Verified 11/01/24 01:54 citalopram [From Celexa] Allergy Unknown Agitation Verified 11/01/24 01:54 divalproex sodium Allergy Unknown Agitation Verified 11/01/24 01:54 [From Depakote] paroxetine [From Paxil] Allergy Unknown Agitation Verified 11/01/24 01:54 sertraline [From Zoloft] Allergy Unknown Agitation Verified 11/01/24 01:54 metoclopramide [From Reglan] Allergy Rash/Hives Verified 11/01/24 01:54 phenobarbital AdvReac Severe Rapid Verified 11/01/24 01:54 Heart Rate zolpidem tartrate AdvReac Unknown Altered Verified 11/01/24 01:54 [From Ambien] Mental Status dicyclomine [From Bentyl] AdvReac Rapid Verified 11/01/24 10:02 Heart Rate estropipate [From Ogen 2.5] AdvReac Twitching Verified 11/01/24 01:54 of Legs haloperidol [From Haldol] AdvReac Agitation Verified 11/01/24 01:54 ketorolac [From Toradol] AdvReac Unknown Verified 11/01/24 01:54 lorazepam [From Ativan] AdvReac Hallucinati Verified 11/01/24 01:54 ons methylprednisolone AdvReac Altered Verified 11/01/24 01:54 [From Solu-Medrol] Mental Status ondansetron [From Zofran] AdvReac Unknown Verified 11/01/24 01:54 Review of Systems ROS Statement: Those systems with pertinent positive or pertinent negative responses have been documented in the HPI. ROS Other: All systems not noted in ROS Statement are negative. 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 PT IS ABLE TO MAKE DECISIONS FOR HIMSELF,IBS History of Any Multi-Drug Resistant Organisms: None Reported Past Surgical History: Tonsillectomy Additional Past Surgical History / Comment(s): wisdom teeth removed. Past Anesthesia/Blood Transfusion Reactions: No Reported Reaction Additional Past Anesthesia/Blood Transfusion Reaction / Comment(s): NEVER HAD BLOOD TRANSFUSION Past Psychological History: ADD/ADHD, Anxiety, Bipolar, Depression, PTSD Smoking Status: Former smoker Past Alcohol Use History: None Reported Past Drug Use History: None Reported - Past Family History Sister(s) Additional Family Medical History / Comment(s): He has one sister that is healthy. He also has a 4-year-old daughter that is healthy. Father Family Medical History: GERD/Reflux Additional Family Medical History / Comment(s): DAD HAS ALSO NEVER BEEN AN ALCOHOLIC-RARELY, RARELY DRINKS. Mother Family Medical History: Cancer Additional Family Medical History / Comment(s): MOM STATES SHE HAS NEVER BEEN AN ALCOHOLIC-MOM RARELY ,RARELY DRINKS. HX THYROID CANCER General Exam Limitations: no limitations General appearance: alert, in no apparent distress Head exam: Present: atraumatic, normocephalic, normal inspection Eye exam: Present: normal appearance, PERRL, EOMI. Absent: scleral icterus, conjunctival injection, periorbital swelling Respiratory exam: Present: normal lung sounds bilaterally. Absent: respiratory distress, wheezes, rales, rhonchi, stridor Cardiovascular Exam: Present: regular rate, normal rhythm, normal heart sounds. Absent: systolic murmur, diastolic murmur, rubs, gallop, clicks GI/Abdominal exam: Present: soft, normal bowel sounds. Absent: distended, tenderness, guarding, rebound, rigid Neurological exam: Present: alert, oriented X3 Psychiatric exam: Present: normal affect, normal mood Skin exam: Present: warm, dry, intact, normal color. Absent: rash Course Vital Signs 11/01/24 09:59 Temperature 97.6 F Pulse Rate 103 H Respiratory 20 Rate Blood Pressure 119/76 O2 Sat by Pulse 96 Oximetry Medical Decision Making - Medical Decision Making Was pt. sent in by a medical professional or institution (, PA, RIB CLOTH KNITTER, urgent care, hospital, or detention...) When possible be specific @ -No Did you speak to anyone other than the patient for history (EMS, parent, family, police, friend...)? What history was obtained from this source @ -No Did you review nursing and triage notes (agree or disagree)? Why? @ -I reviewed and agree with nursing and triage notes Were old charts reviewed (outside hosp., previous admission, EMS record, old EKG, old radiological studies, urgent care reports/EKG's, detention records)? Report findings @ -Reviewed ER visit from earlier today Differential Diagnosis (chest pain, altered mental status, abdominal pain women, abdominal pain men, vaginal bleeding, weakness, fever, dyspnea, syncope, headache, dizziness, GI bleed, back pain, seizure, CVA, palpatations, mental health, musculoskeletal)? @ -Differential Abdominal Pain Men: Appendicitis, cholecystitis, diverticulosis, ischemic bowel, pancreatitis, hepatitis, UTI, gastroenteritis, AAA, incarcerated hernia, bowel obstruction, constipation, inflammatory bowel, hepatitis, peptic ulcer disease, splenic infarction, perforated viscus, testicular torsion, this is not meant to be an all-inclusive list EKG interpreted by me (3pts min.). @ -None X-rays interpreted by me (1pt min.). @ -None done CT interpreted by me (1pt min.). @ -None done U/S interpreted by me (1pt. min.). @ -None done What testing was considered but not performed or refused? (CT, X-rays, U/S, l abs)? Why? @ -None What meds were considered but not given or refused? Why? @ -None Did you discuss the management of the patient with other professionals (professionals i.e. , PA, RIB CLOTH KNITTER, lab, RT, psych nurse, social media intern, log pond worker, teacher, court security officer, continuous pillowcase cutter)? Give summary @ -No Was smoking cessation discussed for >3mins.? @ -No Was critical care preformed (if so, how long)? @ -No Were there social determinants of health that impacted care today? How? (Homelessness, low income, unemployed, alcoholism, drug addiction, transportation, low edu. Level, literacy, decrease access to med. care, custodial, rehab)? @ -No Was there de-escalation of care discussed even if they declined (Discuss DNR or withdrawal of care, Hospice)? DNR status @ -No What co-morbidities impacted this encounter? (DM, HTN, Smoking, COPD, CAD, Cancer, CVA, ARF, Chemo, Hep., AIDS, mental health diagnosis, sleep apnea, morbid obesity)? @ -None Was patient admitted / discharged? Hospital course, mention meds given and route, prescriptions, significant lab abnormalities, going to OR and other pertinent info. @ -Discharged. 34-year-old male well-known to ER for abdominal pain presenting for abdominal pain x 1 day. History of IBS states this feels similar to previous flares. Was evaluated in ER earlier today for same symptoms and discharged with negative workup. Abdomen is soft and nonsurgical. Patient was provided with IV fluids and analgesics. Lab work remarkable for lactic 2.2 however improved from previous value of 2.4 earlier today. Otherwise lab work unremarkable. Upon reevaluation, patient reports improvement of symptoms and feels stable for discharge. Instructed patient to follow-up with PCP as well as GI for further workup. Appropriate return precautions discussed. Case was discussed with ED attending Dr. Ordonez. Undiagnosed new problem with uncertain prognosis? @ -No Drug Therapy requiring intensive monitoring for toxicity (Heparin, Nitro, Insulin, Cardizem)? @ -No Were any procedures done? @ -No Diagnosis/symptom? @ -Abdominal pain Acute, or Chronic, or Acute on Chronic? @ -Acute Uncomplicated (without systemic symptoms) or Complicated (systemic symptoms)? @ -Uncomplicated Side effects of treatment? @ -No Exacerbation, Progression, or Severe Exacerbation? @ -No Poses a threat to life or bodily function? How? (Chest pain, [place], [place], pneumonia, PE, COPD, DKA, ARF, appy, cholecystitis, CVA, Diverticulitis, Homicidal, Suicidal, threat to staff... and all critical care pts) @ -No - Lab Data Result diagrams: 11/01/24 11:05 11/01/24 10:25 Lab Results 11/01/24 11/01/24 11/01/24 Range/Units 10:25 10:25 11:05 WBC 8.6 (3.8-10.6) k/uL RBC 4.66 (4.30-5.90) m/uL Hgb 14.0 (13.0-17.5) gm/dL Hct 43.2 (39.0-53.0) % MCV 92.7 (80.0-100.0) fL MCH 30.0 (25.0-35.0) pg MCHC 32.3 (31.0-37.0) g/dL RDW 13.8 (11.5-15.5) % Plt Count 218 (150-450) k/uL MPV 7.7 Neutrophils % 76 % Lymphocytes % 18 % Monocytes % 4 % Eosinophils % 1 % Basophils % 0 % Neutrophils # 6.5 (1.3-7.7) k/uL Lymphocytes # 1.6 (1.0-4.8) k/uL Monocytes # 0.3 (0-1.0) k/uL Eosinophils # 0.1 (0-0.7) k/uL Basophils # 0.0 (0-0.2) k/uL Sodium 141 (137-145) mmol/L Potassium 3.8 (3.5-5.1) mmol/L Chloride 103 (98-107) mmol/L Carbon Dioxide 26 (22-30) mmol/L Anion Gap 12 mmol/L BUN 10 (9-20) mg/dL Creatinine 0.71 (0.66-1.25) mg/dL Est GFR (CKD-EPI)AfAm >90 (>60 ml/min/1.73 sqM) Est GFR (CKD-EPI)NonAf >90 (>60 ml/min/1.73 sqM) Glucose 105 H (74-99) mg/dL Plasma Lactic Acid Socrates 2.2 H* (0.7-2.0) mmol/L Calcium 9.8 (8.4-10.2) mg/dL Total Bilirubin 0.5 (0.2-1.3) mg/dL AST 27 (17-59) U/L ALT 19 (4-49) U/L Alkaline Phosphatase 97 (38-126) U/L Total Protein 7.3 (6.3-8.2) g/dL Albumin 5.0 (3.5-5.0) g/dL Lipase 15 L (23-300) U/L Disposition Clinical Impression: Abdominal pain Disposition: HOME SELF-CARE Condition: Stable Instructions (If sedation given, give patient instructions): Abdominal Pain (ED) Additional Instructions: Please return to the Emergency Department if symptoms worsen or any other concerns. Is patient prescribed a controlled substance at d/c from ED?: No Referrals: Sumeet Mejias III, MD [Primary Care Provider] - 1-2 days Time of Disposition: 12:17
[2024-11-01 12:43] VITALS: BP 102/68; PULSE 89
== END 2024-11-01 12:44 | disposition home or self-care (01) ==
LOC: EC 09:55
DX: R10.9 Unspecified abdominal pain (principal); Z87.891 Personal history of nicotine dependence; Z88.8 Allergy status to other drugs, medicaments and biological substances; Z88.6 Allergy status to analgesic agent
CPT/HCPCS: 99284; 96374; 96375; 96376; 96361 ×2; 36415; 80053; 83605; 83690; 85025; J2270 ×2; J3490

== ENCOUNTER 2024-11-02 18:10 | Emergency (ER) | payer OTHER ==
--- NOTE | 2024-11-02 18:28 | ED ---
Abdominal Pain HPI - General Source: RN notes reviewed <Carley Guerra - Last Filed: 11/02/24 18:27> <Kathleen Gupta - Last Filed: 11/03/24 12:12> - General Stated Complaint: abd pain Time Seen by Provider: 11/02/24 18:27 - History of Present Illness Initial Comments: Quick [id number] male well-known to ER presenting for abdominal pain. States this feels like a flareup of his IBS. He has had multiple ER visits in the past couple of days for same symptoms and has been discharged with negative workup. Reports symptoms are worsening. (Carley Guerra) This is a 34-year-old gentleman with a past medical history IBS well-known to this emergency department for chronic abdominal pain. He has had multiple visits to the ER this year so far for the same complaint. Patient states this is similar to usual pain. Also complains his palms are sweaty otherwise denies additional complaints. States he did not try any medications at home because nothing ever works for him. (Kathleen Gupta) - Related Data Home Medications Medication Instructions Recorded Confirmed Nicotine 21Mg/24Hr Patch [Habitrol] 1 patch TRANSDERM HS 07/18/24 07/19/24 Previous Rx's Medication Instructions Recorded ALPRAZolam [Xanax] 0.5 mg PO TID PRN #9 tablet 07/18/24 Nicotine 14Mg/24Hr Patch [Habitrol] 1 patch TRANSDERM DAILY patch 07/21/24 Omeprazole [PriLOSEC] 20 mg PO AC-BRKFST 30 Days #30 cap 07/21/24 Ziprasidone [Geodon] 20 mg PO 1700 30 Days #30 cap 07/21/24 fluvoxaMINE MALEATE 50 mg PO BID 30 Days #60 tab 07/21/24 lamoTRIgine [LaMICtal] 100 mg PO DAILY 30 Days #30 tab 07/21/24 Loperamide HCl [Imodium A-D] 2 mg PO ONCE #30 tablet 07/29/24 Simethicone [Gas-X] 125 mg PO QID #40 capsule 07/30/24 diazePAM [Valium] 2 mg PO BID PRN 3 Days #6 tab 09/03/24 Dicyclomine [Bentyl] 20 mg PO TID #30 tablet 10/03/24 Metoclopramide [Reglan] 10 mg PO Q6H PRN #20 tab 10/13/24 Docusate [Colace] 100 mg PO DAILY PRN 14 Days #14 10/21/24 capsule Allergies Allergy/AdvReac Type Severity Reaction Status Date / Time aripiprazole [From Abilify] Allergy Unknown Agitation Verified 11/03/24 07:36 cariprazine [From Vraylar] Allergy Unknown Agitation Verified 11/03/24 07:36 citalopram [From Celexa] Allergy Unknown Agitation Verified 11/03/24 07:36 divalproex sodium Allergy Unknown Agitation Verified 11/03/24 07:36 [From Depakote] paroxetine [From Paxil] Allergy Unknown Agitation Verified 11/03/24 07:36 sertraline [From Zoloft] Allergy Unknown Agitation Verified 11/03/24 07:36 metoclopramide [From Reglan] Allergy Rash/Hives Verified 11/03/24 07:36 phenobarbital AdvReac Severe Rapid Verified 11/03/24 07:36 Heart Rate zolpidem tartrate AdvReac Unknown Altered Verified 11/03/24 07:36 [From Ambien] Mental Status dicyclomine [From Bentyl] AdvReac Rapid Verified 11/03/24 07:36 Heart Rate estropipate [From Ogen 2.5] AdvReac Twitching Verified 11/03/24 07:36 of Legs haloperidol [From Haldol] AdvReac Agitation Verified 11/03/24 07:36 ketorolac [From Toradol] AdvReac Unknown Verified 11/03/24 07:36 lorazepam [From Ativan] AdvReac Hallucinati Verified 11/03/24 07:36 ons methylprednisolone AdvReac Altered Verified 11/03/24 07:36 [From Solu-Medrol] Mental Status ondansetron [From Zofran] AdvReac Unknown Verified 11/03/24 07:36 Review of Systems ROS Other: All systems not noted in ROS Statement are negative. <Carley Guerra - Last Filed: 11/02/24 18:27> ROS Other: All systems not noted in ROS Statement are negative. <Kathleen Gupta - Last Filed: 11/03/24 12:12> ROS Statement: Those systems with pertinent positive or pertinent negative responses have been documented in the HPI. 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 PT IS ABLE TO MAKE DECISIONS FOR HIMSELF,IBS History of Any Multi-Drug Resistant Organisms: None Reported Past Surgical History: Tonsillectomy Additional Past Surgical History / Comment(s): wisdom teeth removed. Past Anesthesia/Blood Transfusion Reactions: No Reported Reaction Additional Past Anesthesia/Blood Transfusion Reaction / Comment(s): NEVER HAD BLOOD TRANSFUSION Smoking Status: Former smoker - Past Family History Sister(s) Additional Family Medical History / Comment(s): He has one sister that is healthy. He also has a 4-year-old daughter that is healthy. Father Family Medical History: GERD/Reflux Additional Family Medical History / Comment(s): DAD HAS ALSO NEVER BEEN AN ALC OHOLIC-RARELY, RARELY DRINKS. Mother Family Medical History: Cancer Additional Family Medical History / Comment(s): MOM STATES SHE HAS NEVER BEEN AN ALCOHOLIC-MOM RARELY ,RARELY DRINKS. HX THYROID CANCER <Carley Guerra - Last Filed: 11/02/24 18:27> General Exam <GuerraCarley - Last Filed: 11/02/24 18:27> <Kathleen Gupta - Last Filed: 11/03/24 12:12> - General Exam Comments Initial Comments: Visual Physical Exam General: Well-appearing, nontoxic, no acute distress. Head: Normocephalic, atraumatic Eyes: PERRLA, EOMI ENT: Airway patent Chest: Nonlabored breathing Skin: No visual rash, normal skin tone Neuro: Alert and oriented 3 Musculoskeletal: No gross abnormalities (Carley Guerra) PE: CONSTITUTIONAL: No apparent distress, well appearing SKIN: Warm, dry, no jaundice, hives or petechiae EYES: Pupils are equally round, extraocular movements intact without nystagmus, clear conjunctiva, non-icteric sclera HENT: Normocephalic, atraumatic, moist mucus membranes, oropharynx clear without exudates NECK: , Full range of motion, normal appearance PULMONARY: Clear to auscultation without wheezes, rhonchi, or rales, normal excursion, no accessory muscle use and no stridor CARDIOVASCULAR: Regular rate, rhythm, normal S1 and S2. No appreciated murmurs, rubs or gallops. Strong radial pulses with intact distal perfusion. No lower extremity edema GASTROINTESTINAL: Soft, active bowel sounds throughout, non-tender, non- distended, no palpable masses, no rebound or guarding. No hepatosplenomegaly GENITOURINARY: MUSCULOSKELETAL: [Extremities have no gross deformity NEUROLOGIC:_a/o x 3, GCS 15, normal mentation and speech. Moves all extremities x 4 without motor or sensory deficit PSYCHIATRIC:_normal mood and affect, thought process is clear and linear (Kathleen Gupta) Course Vital Signs 11/02/24 11/02/24 20:28 23:10 Temperature 98.7 F 99.3 F Pulse Rate 83 64 Respiratory 17 18 Rate Blood Pressure 116/72 99/58 O2 Sat by Pulse 99 99 Oximetry Medical Decision Making <Carley Guerra - Last Filed: 11/02/24 18:27> - Lab Data Result diagrams: 11/02/24 20:49 11/02/24 20:49 <Kathleen Gupta - Last Filed: 11/03/24 12:12> - Medical Decision Making I completed the quick note portion of this chart signed Carley Guerra PA-C (Carley Guerra) Was pt. sent in by a medical professional or institution ([facility], [employer], urgent care, hospital, or [facility]...) When possible be specific @ -No Did you speak to anyone other than the patient for history (EMS, parent, family, police, friend...)? What history was obtained from this source @ -No Did you review nursing and triage notes (agree or disagree)? Why? @ -I reviewed nursing and triage notes Were old charts reviewed (outside hosp., previous admission, EMS record, old EKG, old radiological studies, urgent care reports/EKG's, [facility] records)? Report findings @ -Medical records reviewed I personally reviewed medical records, patient has been to emergency department approximately 10 times in the last month along for the same complaint with overall reassuring labs each time, X-ray KUB done on 10/21/2024 showed no acute process Differential Diagnosis (chest pain, altered mental status, abdominal pain women, abdominal pain men, vaginal bleeding, weakness, fever, dyspnea, syncope, headache, dizziness, GI bleed, back pain, seizure, CVA, palpatations, mental health, musculoskeletal)? @Differential Abdominal Pain Men: Appendicitis, cholecystitis, diverticulosis, ischemic bowel, pancreatitis, hepatitis, UTI, gastroenteritis, incarcerated hernia, bowel obstruction, constipation, inflammatory bowel, hepatitis, peptic ulcer disease, splenic infarction, perforated viscus, testicular torsion, this is not meant to be an all-inclusive list EKG interpreted by me (3pts min.). @ -As above X-rays interpreted by me (1pt min.). @ -None done CT interpreted by me (1pt min.). @ -None done U/S interpreted by me (1pt. min.). @ -None done What testing was considered but not performed or refused? (CT, X-rays, U/S, labs)? Why? @ Abdominal imaging including with CT and x-ray were considered however eliz melgoza's abdominal pain is described as chronic, his exam is entirely benign, abdomen is soft, nontender, no palpable masses, no peritoneal signs, vital signs are within acceptable limits and labs are reassuring therefore do not feel further imaging is indicated at this point What meds were considered but not given or refused? Why? @ -None Did you discuss the management of the patient with other professionals (professionals i.e. , PA, [employer], lab, RT, psych nurse, social science teacher, date night sitter, teacher, consumer safety officer, residential case manager)? Give summary @ -No Was smoking cessation discussed for >3mins.? @ -No Was critical care preformed (if so, how long)? @ -No Were there social determinants of health that impacted care today? How? (Homelessness, low income, unemployed, alcoholism, drug addiction, transpo rtation, low edu. Level, literacy, decrease access to med. care, intermediate, rehab)? @Mental health history, has guardian Was there de-escalation of care discussed even if they declined (Discuss DNR or withdrawal of care, Hospice)? @ -No What co-morbidities impacted this encounter? (DM, HTN, Smoking, COPD, CAD, Cancer, CVA, ARF, Chemo, Hep., AIDS, mental health diagnosis, sleep apnea, morbid obesity)? @IBS Was patient admitted / discharged? Hospital course, mention meds given and route, prescriptions, significant lab abnormalities, going to OR and other pertinent info. @Discharged -this is a 34-year-old man history IBS, recurrent visits for chronic abdominal pain. Seen by triage YUMIKO, I reviewed labs as ordered by YUMIKO all within acceptable limits, lactic 1.5. On my assessment patient is well-a ppearing and in no acute distress. Patient has recurrent visits to emergency department for the same complaint. I personally seen this patient multiple times in the past. My exam today shows a soft nontender abdomen with active bowel sounds and no peritoneal signs. Patient is comfortable appearing on my assessment. Discussed with him plan for GI cocktail. He is agreeable plan of care. Patient given GI cocktail and was able to tolerate p.o. intake. Discharged in stable condition. In my medical judgment there is currently no evidence of an immediate life- threatening or surgical condition. Discharge is therefore indicated at this time. Discharge treatment instructions, follow up instructions, and appropriate emergency department return precautions were provided to the patient and/or medical decision maker. Patient and/or medical decision maker expressed understanding of and agreed with the treatment plan. All patient's and/or medical decision maker's questions were answered. Undiagnosed new problem with uncertain prognosis? @ -No Drug Therapy requiring intensive monitoring for toxicity (Heparin, Nitro, Insulin, Cardizem)? @ -No Were any procedures done? @ -No Diagnosis/symptom? Chronic abdominal pain Acute, or Chronic, or Acute on Chronic? Chronic Uncomplicated (without systemic symptoms) or Complicated (systemic symptoms)? @Uncomplicated Side effects of treatment? @ -No Exacerbation, Progression, or Severe Exacerbation? @ -No Poses a threat to life or bodily function? How? (Chest pain, USA, MS, pneumonia, PE, COPD, DKA, ARF, appy, cholecystitis, CVA, Diverticulitis, Homicidal, Suicidal, threat to staff... and all critical care pts) @ -No (Kathleen Gupta) - Lab Data Lab Results 11/02/24 11/02/24 11/02/24 Range/Units 20:49 20:49 20:49 WBC 9.3 (3.8-10.6) k/uL RBC 4.84 (4.30-5.90) m/uL Hgb 14.6 (13.0-17.5) gm/dL Hct 45.2 (39.0-53.0) % MCV 93.4 (80.0-100.0) fL MCH 30.1 (25.0-35.0) pg MCHC 32.2 (31.0-37.0) g/dL RDW 13.3 (11.5-15.5) % Plt Count 226 (150-450) k/uL MPV 8.4 Neutrophils % 67 % Lymphocytes % 26 % Monocytes % 4 % Eosinophils % 2 % Basophils % 0 % Neutrophils # 6.2 (1.3-7.7) k/uL Lymphocytes # 2.4 (1.0-4.8) k/uL Monocytes # 0.4 (0-1.0) k/uL Eosinophils # 0.2 (0-0.7) k/uL Basophils # 0.0 (0-0.2) k/uL Sodium 139 (137-145) mmol/L Potassium 5.1 (3.5-5.1) mmol/L Chloride 103 (98-107) mmol/L Carbon Dioxide 27 (22-30) mmol/L Anion Gap 9 mmol/L BUN 9 (9-20) mg/dL Creatinine 0.83 (0.66-1.25) mg/dL Est GFR (CKD-EPI)AfAm >90 (>60 ml/min/1.73 sqM) Est GFR (CKD-EPI)NonAf >90 (>60 ml/min/1.73 sqM) Glucose 86 (74-99) mg/dL Plasma Lactic Acid Socrates 1.5 (0.7-2.0) mmol/L Calcium 9.8 (8.4-10.2) mg/dL Total Bilirubin 1.2 (0.2-1.3) mg/dL AST 31 (17-59) U/L ALT 18 (4-49) U/L Alkaline Phosphatase 70 (38-126) U/L Total Protein 7.1 (6.3-8.2) g/dL Albumin 4.8 (3.5-5.0) g/dL Lipase 22 L (23-300) U/L Disposition <Carley Guerra - Last Filed: 11/02/24 18:27> Is patient prescribed a controlled substance at d/c from ED?: No <Kathleen Gupta - Last Filed: 11/03/24 12:12> Clinical Impression: Chronic abdominal pain Disposition: HOME SELF-CARE Condition: Stable Instructions (If sedation given, give patient instructions): Abdominal Pain (ED) Additional Instructions: Every disease is a spectrum and a small chance still exists that a serious condition could develop, for this reason, please monitor yourself closely for ne w, changing or worsening symptoms, failure of symptoms to improve in 72 hours, fever, inability to tolerate/keep down fluids or your medications, inability to follow up with outpatient providers as instructed and should you experience these symptoms or should you have any further concerns for your wellbeing please return to the ED or call 911 immediately. Please maintain a clear liquid diet for the next 24 hours and then progress as tolerated. PLEASE call your primary care physician as soon as possible to arrange / discuss plan for followup appointment. Appointment in the next 1-3 days is strongly encouraged if possible. You need to follow-up with your primary care provider regarding your chronic pain for long-term management. PLEASE let us know here before you leave if there is anything further we can do to be of any assistance. Take care and feel Better! Referrals: Sumeet Mejias III, MD [Primary Care Provider] - 1-2 days
[2024-11-02 21:00] LABS: Basophils % (A) 0 %; Eosinophils # (A) 0.2 k/uL (0-0.7); Eosinophils % (A) 2 %; HCT 45.2 % (39.0-53.0); HGB 14.6 gm/dL (13.0-17.5); Lymphocytes # (A) 2.4 k/uL (1.0-4.8); Lymphocytes % (A) 26 %; MCH 30.1 pg (25.0-35.0); MCHC 32.2 g/dL (31.0-37.0); MCV 93.4 fL (80.0-100.0); Mean Platelet Volume 8.4; Monocytes # (A) 0.4 k/uL (0-1.0); Monocytes % (A) 4 %; Neutrophils # (A) 6.2 k/uL (1.3-7.7); Neutrophils % (A) 67 %; Platelet Count 226 k/uL (150-450); RBC 4.84 m/uL (4.30-5.90); RDW 13.3 % (11.5-15.5); WBC 9.3 k/uL (3.8-10.6)
[2024-11-02 21:18] LABS: ALT 18 U/L (4-49); African American GFR (CKD) >90 (>60 ml/min/1.73 sqM); Anion Gap 9 mmol/L; Blood Urea Nitrogen 9 mg/dL (9-20); Calcium 9.8 mg/dL (8.4-10.2); Carbon Dioxide 27 mmol/L (22-30); Chloride 103 mmol/L (98-107); Glucose 86 mg/dL (74-99); Lipase 22 U/L (23-300); Non-African American GFR(CKD) >90 (>60 ml/min/1.73 sqM); Sodium 139 mmol/L (137-145)
[2024-11-02 21:45] LABS: AST 31 U/L (17-59); Albumin 4.8 g/dL (3.5-5.0); Potassium 5.1 mmol/L (3.5-5.1); Total Bilirubin 1.2 mg/dL (0.2-1.3); Total Protein 7.1 g/dL (6.3-8.2)
[2024-11-02 21:46] LABS: Alkaline Phosphatase 70 U/L (38-126)
[2024-11-02] MEDS: SUCRALFATE 1 GM TAB PO STA (22:34)
[2024-11-02] MEDS: FAMOTIDINE 20 MG TAB PO STA (22:34)
[2024-11-02] MEDS: MAG HYDROX/AL HYDROX/SIMETH 30 ML CUP PO STA (22:35)
[2024-11-02] MEDS: LIDOCAINE VISCOUS 2% 15 ML CUP PO ONE (22:35)
[2024-11-02 23:14] VITALS: BP 99/58; PULSE 64; RESP 18; TEMP 99.3
== END 2024-11-02 23:13 | disposition home or self-care (01) ==
LOC: EC 18:10
DX: G89.29 Other chronic pain (principal); R10.84 Generalized abdominal pain; Z88.8 Allergy status to other drugs, medicaments and biological substances; Z87.891 Personal history of nicotine dependence
CPT/HCPCS: 36415; 80053; 83605; 83690; 85025; 99284

== ENCOUNTER 2024-11-03 07:31 | Emergency (ER) | payer OTHER ==
[2024-11-03 07:38] VITALS: RESP 18; TEMP 98
--- NOTE | 2024-11-03 08:15 | ED ---
Abdominal Pain HPI - General Chief Complaint: Abdominal Pain Stated Complaint: IBS Time Seen by Provider: 11/03/24 07:37 Source: patient Mode of arrival: ambulatory Limitations: no limitations - History of Present Illness Initial Comments: 34-year-old male with past medical history of Crohn's, kidney stones, IBS who presents the emergency department with abdominal pain. Patient has had multiple visits to the emergency department with similar complaint. States he is following with Dr. Desai and for his pain. He has been on several medications to help alleviate his symptoms. Denies taking any of these medications before coming to the emergency department today. States he woke up with this pain that starts around his umbilicus and radiates down into his testicles. Patient is reporting significant testicular pain. Denies any bulges. No heavy lifting recently. Denies fevers. Admits nausea. No dysuria, hematuria or difficulty v oiding. Does report to chronic diarrhea and states he did have a bowel movement this morning. No black or bloody stools. Denies chest pain, shortness of breath. No back or flank pain. No other alleviating, precipitating or modifying factors - Related Data Home Medications Medication Instructions Recorded Confirmed Nicotine 21Mg/24Hr Patch [Habitrol] 1 patch TRANSDERM HS 07/18/24 07/19/24 Previous Rx's Medication Instructions Recorded ALPRAZolam [Xanax] 0.5 mg PO TID PRN #9 tablet 07/18/24 Nicotine 14Mg/24Hr Patch [Habitrol] 1 patch TRANSDERM DAILY patch 07/21/24 Omeprazole [PriLOSEC] 20 mg PO AC-BRKFST 30 Days #30 cap 07/21/24 Ziprasidone [Geodon] 20 mg PO 1700 30 Days #30 cap 07/21/24 fluvoxaMINE MALEATE 50 mg PO BID 30 Days #60 tab 07/21/24 lamoTRIgine [LaMICtal] 100 mg PO DAILY 30 Days #30 tab 07/21/24 Loperamide HCl [Imodium A-D] 2 mg PO ONCE #30 tablet 07/29/24 Simethicone [Gas-X] 125 mg PO QID #40 capsule 07/30/24 diazePAM [Valium] 2 mg PO BID PRN 3 Days #6 tab 09/03/24 Dicyclomine [Bentyl] 20 mg PO TID #30 tablet 10/03/24 Metoclopramide [Reglan] 10 mg PO Q6H PRN #20 tab 10/13/24 Docusate [Colace] 100 mg PO DAILY PRN 14 Days #14 10/21/24 capsule Allergies Allergy/AdvReac Type Severity Reaction Status Date / Time aripiprazole [From Abilify] Allergy Unknown Agitation Verified 11/03/24 07:36 cariprazine [From Vraylar] Allergy Unknown Agitation Verified 11/03/24 07:36 citalopram [From Celexa] Allergy Unknown Agitation Verified 11/03/24 07:36 divalproex sodium Allergy Unknown Agitation Verified 11/03/24 07:36 [From Depakote] paroxetine [From Paxil] Allergy Unknown Agitation Verified 11/03/24 07:36 sertraline [From Zoloft] Allergy Unknown Agitation Verified 11/03/24 07:36 metoclopramide [From Reglan] Allergy Rash/Hives Verified 11/03/24 07:36 phenobarbital AdvReac Severe Rapid Verified 11/03/24 07:36 Heart Rate zolpidem tartrate AdvReac Unknown Altered Verified 11/03/24 07:36 [From Ambien] Mental Status dicyclomine [From Bentyl] AdvReac Rapid Verified 11/03/24 07:36 Heart Rate estropipate [From Ogen 2.5] AdvReac Twitching Verified 11/03/24 07:36 of Legs haloperidol [From Haldol] AdvReac Agitation Verified 11/03/24 07:36 ketorolac [From Toradol] AdvReac Unknown Verified 11/03/24 07:36 lorazepam [From Ativan] AdvReac Hallucinati Verified 11/03/24 07:36 ons methylprednisolone AdvReac Altered Verified 11/03/24 07:36 [From Solu-Medrol] Mental Status ondansetron [From Zofran] AdvReac Unknown Verified 11/03/24 07:36 Review of Systems ROS Statement: Those systems with pertinent positive or pertinent negative responses have been documented in the HPI. ROS Other: All systems not noted in ROS Statement are negative. 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 PT IS ABLE TO MAKE DECISIONS FOR HIMSELF,IBS History of Any Multi-Drug Resistant Organisms: None Reported Past Surgical History: Tonsillectomy Additional Past Surgical History / Comment(s): wisdom teeth removed. Past Anesthesia/Blood Transfusion Reactions: No Reported Reaction Additional Past Anesthesia/Blood Transfusion Reaction / Comment(s): NEVER HAD BLOOD TRANSFUSION Past Psychological History: ADD/ADHD, Anxiety, Bipolar, Depression, PTSD Smoking Status: Former smoker Past Alcohol Use History: None Reported Past Drug Use History: None Reported - Past Family History Sister(s) Additional Family Medical History / Comment(s): He has one sister that is healthy. He also has a 4-year-old daughter that is healthy. Father Family Medical History: GERD/Reflux Additional Family Medical History / Comment(s): DAD HAS ALSO NEVER BEEN AN ALCOHOLIC-RARELY, RARELY DRINKS. Mother Family Medical History: Cancer Additional Family Medical History / Comment(s): MOM STATES SHE HAS NEVER BEEN AN ALCOHOLIC-MOM RARELY ,RARELY DRINKS. HX THYROID CANCER General Exam Limitations: no limitations General appearance: alert, in no apparent distress Head exam: Present: atraumatic, normocephalic, normal inspection Eye exam: Present: normal appearance, PERRL, EOMI. Absent: scleral icterus, conjunctival injection, periorbital swelling ENT exam: Present: normal exam, mucous membranes moist Neck exam: Present: normal inspection. Absent: tenderness, meningismus, lymphadenopathy Respiratory exam: Present: normal lung sounds bilaterally. Absent: respiratory distress, wheezes, rales, rhonchi, stridor Cardiovascular Exam: Present: regular rate, normal rhythm, normal heart sounds. Absent: systolic murmur, diastolic murmur, rubs, gallop, clicks GI/Abdominal exam: Present: soft, tenderness (Generalized), normal bowel sounds. Absent: distended, guarding, rebound, rigid Extremities exam: Present: normal inspection, full ROM, normal capillary refill. Absent: tenderness, pedal edema, joint swelling, calf tenderness Back exam: Present: normal inspection Neurological exam: Present: alert, oriented X3, CN II-XII intact Psychiatric exam: Present: normal mood, flat affect Skin exam: Present: warm, dry, intact, normal color. Absent: rash Course Vital Signs 11/03/24 11/03/24 07:34 09:49 Temperature 98 F 98 F Pulse Rate 88 891 H Respiratory 18 18 Rate Blood Pressure 124/77 120/79 O2 Sat by Pulse 98 98 Oximetry Medical Decision Making - Medical Decision Making Was pt. sent in by a medical professional or institution (, LINO, EDUCATIONAL PSYCHOLOGIST, urgent care, hospital, or fdc...) When possible be specific @ -No Did you speak to anyone other than the patient for history (EMS, parent, family, police, friend...)? What history was obtained from this source @ -No Did you review nursing and triage notes (agree or disagree)? Why? @ -I reviewed and agree with nursing and triage notes Were old charts reviewed (outside hosp., previous admission, EMS record, old EKG, old radiological studies, urgent care reports/EKG's, fdc records)? Report findings @ -No old charts were reviewed Differential Diagnosis (chest pain, altered mental status, abdominal pain women, abdominal pain men, vaginal bleeding, weakness, fever, dyspnea, syncope, headache, dizziness, GI bleed, back pain, seizure, CVA, palpatations, mental health, musculoskeletal)? @ -Differential Abdominal Pain Men: Appendicitis, cholecystitis, diverticulosis, ischemic bowel, pancreatitis, hepatitis, UTI, gastroenteritis, AAA, incarcerated hernia, bowel obstruction, constipation, inflammatory bowel, hepatitis, peptic ulcer disease, splenic infarction, perforated viscus, testicular torsion, this is not meant to be an all-inclusive list EKG interpreted by me (3pts min.). @ -Not done X-rays interpreted by me (1pt min.). @ -None done CT interpreted by me (1pt min.). @ -None done U/S interpreted by me (1pt. min.). @ -Yes and demonstrates no acute process What testing was considered but not performed or refused? (CT, X-rays, U/S, labs)? Why? @ -None What meds were considered but not given or refused? Why? @ -None Did you discuss the management of the patient with other professionals (professionals i.e. LINO Patel, EDUCATIONAL PSYCHOLOGIST, lab, RT, psych nurse, licensed master social worker, die try out worker, teacher, licensed mortgage loan officer, caser up)? Give summary @ -No Was smoking cessation discussed for >3mins.? @ -No Was critical care preformed (if so, how long)? @ -No Were there social determinants of health that impacted care today? How? (Homelessness, low income, unemployed, alcoholism, drug addiction, transportation, low edu. Level, literacy, decrease access to med. care, fpc, rehab)? @ -No Was there de-escalation of care discussed even if they declined (Discuss DNR or withdrawal of care, Hospice)? DNR status @ -No What co-morbidities impacted this encounter? (DM, HTN, Smoking, COPD, CAD, Cancer, CVA, ARF, Chemo, Hep., AIDS, mental health diagnosis, sleep apnea, morbid obesity)? @ -Schizophrenia Was patient admitted / discharged? Hospital course, mention meds given and route, prescriptions, significant lab abnormalities, going to OR and other pertinent info. @ -Upon arrival patient seen and evaluated in room 29. Thorough history and physical exam was performed. IV is established. Laboratory studies are conducted. Ultrasound was performed as the patient is reporting to testicular pain. Ultrasound is negative. Results are discussed with the patient. We did provide him with some Tylenol. Patient is repetitively asking for morphine. I informed the patient that I would not treat chronic pain with opioids. Patient seems upset by this. I told him he would be discharged at this time he needs to follow-up with his primary care to discuss further testing to include EGD and colonoscopy. Return for any new or worsening symptoms. Patient understood and was discharged in stable condition Undiagnosed new problem with uncertain prognosis? @ -No Drug Therapy requiring intensive monitoring for toxicity (Heparin, Nitro, Insulin, Cardizem)? @ -No Were any procedures done? @ -No Diagnosis/symptom? @ -Acute exacerbation of chronic abdominal pain Acute, or Chronic, or Acute on Chronic? @ -Acute on chronic Uncomplicated (without systemic symptoms) or Complicated (systemic symptoms)? @ -Complicated Side effects of treatment? @ -No Exacerbation, Progression, or Severe Exacerbation? @ -No Poses a threat to life or bodily function? How? (Chest pain, [place], [place], pneumonia, PE, COPD, DKA, ARF, appy, cholecystitis, CVA, Diverticulitis, Homicidal, Suicidal, threat to staff... and all critical care pts) @ -No - Lab Data Result diagrams: 11/03/24 08:22 11/03/24 08:22 Lab Results 11/03/24 11/03/24 11/03/24 Range/Units 08:22 08:22 08:22 WBC 8.9 (3.8-10.6) k/uL RBC 4.79 (4.30-5.90) m/uL Hgb 14.0 (13.0-17.5) gm/dL Hct 44.8 (39.0-53.0) % MCV 93.3 (80.0-100.0) fL MCH 29.2 (25.0-35.0) pg MCHC 31.2 (31.0-37.0) g/dL RDW 13.4 (11.5-15.5) % Plt Count 222 (150-450) k/uL MPV 7.5 Neutrophils % 76 % Lymphocytes % 18 % Monocytes % 4 % Eosinophils % 1 % Basophils % 0 % Neutrophils # 6.8 (1.3-7.7) k/uL Lymphocytes # 1.7 (1.0-4.8) k/uL Monocytes # 0.3 (0-1.0) k/uL Eosinophils # 0.1 (0-0.7) k/uL Basophils # 0.0 (0-0.2) k/uL Sodium 139 (137-145) mmol/L Potassium 3.8 (3.5-5.1) mmol/L Chloride 102 (98-107) mmol/L Carbon Dioxide 26 (22-30) mmol/L Anion Gap 11 mmol/L BUN 12 (9-20) mg/dL Creatinine 0.73 (0.66-1.25) mg/dL Est GFR (CKD-EPI)AfAm >90 (>60 ml/min/1.73 sqM) Est GFR (CKD-EPI)NonAf >90 (>60 ml/min/1.73 sqM) Glucose 100 H (74-99) mg/dL Plasma Lactic Acid Socrates (0.7-2.0) mmol/L Calcium 9.8 (8.4-10.2) mg/dL Total Bilirubin 0.6 (0.2-1.3) mg/dL AST 18 (17-59) U/L ALT 15 (4-49) U/L Alkaline Phosphatase 92 (38-126) U/L Total Protein 6.8 (6.3-8.2) g/dL Albumin 4.6 (3.5-5.0) g/dL Lipase 19 L (23-300) U/L Urine Color Yellow Urine Appearance Clear (Clear) Urine pH 7.0 (5.0-8.0) Ur Specific [place] 1.022 (1.001-1.035) Urine Protein Negative (Negative) Urine Glucose (UA) Negative (Negative) Urine Ketones Negative (Negative) Urine Blood Negative (Negative) Urine Nitrite Negative (Negative) Urine Bilirubin Negative (Negative) Urine Urobilinogen 3.0 (<2.0) mg/dL Ur Leukocyte Esterase Negative (Negative) 11/03/24 Range/Units 08:22 WBC (3.8-10.6) k/uL RBC (4.30-5.90) m/uL Hgb (13.0-17.5) gm/dL Hct (39.0-53.0) % MCV (80.0-100.0) fL MCH (25.0-35.0) pg MCHC (31.0-37.0) g/dL RDW (11.5-15.5) % Plt Count (150-450) k/uL MPV Neutrophils % % Lymphocytes % % Monocytes % % Eosinophils % % Basophils % % Neutrophils # (1.3-7.7) k/uL Lymphocytes # (1.0-4.8) k/uL Monocytes # (0-1.0) k/uL Eosinophils # (0-0.7) k/uL Basophils # (0-0.2) k/uL Sodium (137-145) mmol/L Potassium (3.5-5.1) mmol/L Chloride (98-107) mmol/L Carbon Dioxide (22-30) mmol/L Anion Gap mmol/L BUN (9-20) mg/dL Creatinine (0.66-1.25) mg/dL Est GFR (CKD-EPI)AfAm (>60 ml/min/1.73 sqM) Est GFR (CKD-EPI)NonAf (>60 ml/min/1.73 sqM) Glucose (74-99) mg/dL Plasma Lactic Acid Socrates 1.6 (0.7-2.0) mmol/L Calcium (8.4-10.2) mg/dL Total Bilirubin (0.2-1.3) mg/dL AST (17-59) U/L ALT (4-49) U/L Alkaline Phosphatase (38-126) U/L Total Protein (6.3-8.2) g/dL Albumin (3.5-5.0) g/dL Lipase (23-300) U/L Urine Color Urine Appearance (Clear) Urine pH (5.0-8.0) Ur Specific [place] (1.001-1.035) Urine Protein (Negative) Urine Glucose (UA) (Negative) Urine Ketones (Negative) Urine Blood (Negative) Urine Nitrite (Negative) Urine Bilirubin (Negative) Urine Urobilinogen (<2.0) mg/dL Ur Leukocyte Esterase (Negative) Disposition Clinical Impression: Abdominal pain Disposition: HOME SELF-CARE Condition: Stable Instructions (If sedation given, give patient instructions): Abdominal Pain (ED) Additional Instructions: You need to follow-up with Dr. Mejias for further evaluation of your symptoms. They may recommend EGD and colonoscopy. Is patient prescribed a controlled substance at d/c from ED?: No Referrals: Sumeet Mejias III, MD [Primary Care Provider] - 1-2 days Time of Disposition: 09:16
[2024-11-03] MEDS: ACETAMINOPHEN TAB 325 MG TAB PO STA (08:18)
[2024-11-03] MEDS: SODIUM CHLORIDE 0.9% 1,000 ML IV STA (08:19)
[2024-11-03 08:39] LABS: Appearance,Urine Clear (Clear); Bilirubin,Urine Negative (Negative); Blood,Urine Negative (Negative); Color,Urine Yellow; Glucose,Urine (UA) Negative (Negative); Ketones,Urine Negative (Negative); Leukocyte Esterase,Urine Negative (Negative); Nitrite,Urine Negative (Negative); Protein,Urine Negative (Negative); Specific Gravity,Urine 1.022 (1.001-1.035)
[2024-11-03 08:42] LABS: Basophils % (A) 0 %; Eosinophils # (A) 0.1 k/uL (0-0.7); Eosinophils % (A) 1 %; HCT 44.8 % (39.0-53.0); Lymphocytes # (A) 1.7 k/uL (1.0-4.8); Lymphocytes % (A) 18 %; MCH 29.2 pg (25.0-35.0); MCHC 31.2 g/dL (31.0-37.0); MCV 93.3 fL (80.0-100.0); Mean Platelet Volume 7.5; Monocytes # (A) 0.3 k/uL (0-1.0); Monocytes % (A) 4 %; Neutrophils # (A) 6.8 k/uL (1.3-7.7); Neutrophils % (A) 76 %; Platelet Count 222 k/uL (150-450); RBC 4.79 m/uL (4.30-5.90); RDW 13.4 % (11.5-15.5); WBC 8.9 k/uL (3.8-10.6)
[2024-11-03 09:01] LABS: ALT 15 U/L (4-49); AST 18 U/L (17-59); African American GFR (CKD) >90 (>60 ml/min/1.73 sqM); Albumin 4.6 g/dL (3.5-5.0); Alkaline Phosphatase 92 U/L (38-126); Anion Gap 11 mmol/L; Blood Urea Nitrogen 12 mg/dL (9-20); Calcium 9.8 mg/dL (8.4-10.2); Carbon Dioxide 26 mmol/L (22-30); Chloride 102 mmol/L (98-107); Glucose 100 mg/dL (74-99); Lipase 19 U/L (23-300); Non-African American GFR(CKD) >90 (>60 ml/min/1.73 sqM); Potassium 3.8 mmol/L (3.5-5.1); Sodium 139 mmol/L (137-145); Total Bilirubin 0.6 mg/dL (0.2-1.3); Total Protein 6.8 g/dL (6.3-8.2)
--- NOTE | 2024-11-03 09:12 | US ---
EXAMINATION TYPE: US scrotum with doppler. DATE OF EXAM: 11/03/2024 COMPARISON: 10/03/24 CLINICAL INDICATION: Male, 34 years old with history of testicular pain; right side pain x several da ys TECHNIQUE: Grayscale, color Doppler and spectral Doppler imaging of the scrotum. FINDINGS: EXAM MEASUREMENTS: TESTICLES: Right Testicle: 3.4x2.0x2.5 cm Left Testicle: 3.8x2.1x2.6 cm EPIDIDYMIS HEAD: Right Epididymis: 0.5 cm Left Epididymis: 0.6 cm Doppler performed to assess for testicular vascularity; good bilateral color flow and spectral wavefo kevin are seen. There is no evidence of testicular torsion. Presence of hydroceles: small right side Presence of varicoceles: no IMPRESSION: 1. No suspicious ultrasound changes scrotal ultrasound [facility], , 11/03/2024 9:10 AM
[2024-11-03 09:50] VITALS: BP 120/79; PULSE 891
== END 2024-11-03 09:51 | disposition home or self-care (01) ==
LOC: EC 07:31
DX: G89.29 Other chronic pain (principal); R10.84 Generalized abdominal pain; F20.9 Schizophrenia, unspecified; Z88.8 Allergy status to other drugs, medicaments and biological substances; Z87.891 Personal history of nicotine dependence
CPT/HCPCS: 36415; 76870; 80053; 81003; 83605; 83690; 85025; 93975; 96360; 96361; 99284

== ENCOUNTER 2024-11-05 23:08 | Emergency (ER) | payer OTHER ==
[2024-11-05 23:19] VITALS: TEMP 98.5
[2024-11-05] MEDS: SUCRALFATE 1 GM TAB PO STA (23:59)
[2024-11-05] MEDS: LOPERAMIDE 2 MG CAP PO STA (23:59)
[2024-11-05] MEDS: SODIUM CHLORIDE 0.9% 1,000 ML IV ONE (23:59)
[2024-11-06] LABS: Basophils % (A) 0 %; Eosinophils # (A) 0.2 k/uL (0-0.7); Eosinophils % (A) 3 %; HCT 46.9 % (39.0-53.0); HGB 15.2 gm/dL (13.0-17.5); Lymphocytes # (A) 2.5 k/uL (1.0-4.8); Lymphocytes % (A) 38 %; MCH 30.8 pg (25.0-35.0); MCHC 32.4 g/dL (31.0-37.0); MCV 94.8 fL (80.0-100.0); Mean Platelet Volume 8.3; Monocytes # (A) 0.4 k/uL (0-1.0); Monocytes % (A) 5 %; Neutrophils # (A) 3.5 k/uL (1.3-7.7); Neutrophils % (A) 52 %; Platelet Count 192 k/uL (150-450); RBC 4.95 m/uL (4.30-5.90); RDW 13.5 % (11.5-15.5); WBC 6.6 k/uL (3.8-10.6)
[2024-11-06] MEDS: MAG HYDROX/AL HYDROX/SIMETH 30 ML CUP PO STA (00:01)
[2024-11-06] MEDS: FAMOTIDINE 20 MG/2 ML VIAL IV STA (00:02)
[2024-11-06] MEDS: PANTOPRAZOLE 40 MG/10 ML VIAL IVP STA (00:03)
[2024-11-06 00:18] LABS: ALT 13 U/L (4-49); AST 21 U/L (17-59); African American GFR (CKD) >90 (>60 ml/min/1.73 sqM); Albumin 4.7 g/dL (3.5-5.0); Alkaline Phosphatase 76 U/L (38-126); Anion Gap 10 mmol/L; Blood Urea Nitrogen 14 mg/dL (9-20); Calcium 9.9 mg/dL (8.4-10.2); Carbon Dioxide 29 mmol/L (22-30); Chloride 100 mmol/L (98-107); Glucose 84 mg/dL (74-99); Lipase 19 U/L (23-300); Non-African American GFR(CKD) >90 (>60 ml/min/1.73 sqM); Sodium 139 mmol/L (137-145); Total Bilirubin 0.7 mg/dL (0.2-1.3); Total Protein 6.9 g/dL (6.3-8.2)
--- NOTE | 2024-11-06 00:29 | ED ---
General Adult HPI - General Chief complaint: Abdominal Pain Stated complaint: IBS, Abdominal pain Time Seen by Provider: 11/05/24 23:22 Source: patient Mode of arrival: ambulatory Limitations: no limitations - History of Present Illness Initial comments: Patient is a 34-year-old gentleman with a past medical history of IBS presenting today for 3 episodes of diarrhea today. States that they began when he woke up and they are "explosive". He denies any strange color or smell to them. They are not greasy, black or tarry. They are light brown in color. He endorses intermittent sharp abdominal pain. Denies nausea, vomiting, chest pain, shortness of breath, lightheadedness or dizziness, fevers or chills, dysuria, hematuria, testicular pain, penile discharge. No prior abdominal surgeries. States that he took 2 tablets of Tylenol and ibuprofen prior to coming in this evening without improvement in his symptoms. - Related Data Home Medications Medication Instructions Recorded Confirmed Nicotine 21Mg/24Hr Patch [Habitrol] 1 patch TRANSDERM HS 07/18/24 07/19/24 Previous Rx's Medication Instructions Recorded ALPRAZolam [Xanax] 0.5 mg PO TID PRN #9 tablet 07/18/24 Nicotine 14Mg/24Hr Patch [Habitrol] 1 patch TRANSDERM DAILY patch 07/21/24 Omeprazole [PriLOSEC] 20 mg PO AC-BRKFST 30 Days #30 cap 07/21/24 Ziprasidone [Geodon] 20 mg PO 1700 30 Days #30 cap 07/21/24 fluvoxaMINE MALEATE 50 mg PO BID 30 Days #60 tab 07/21/24 lamoTRIgine [LaMICtal] 100 mg PO DAILY 30 Days #30 tab 07/21/24 Loperamide HCl [Imodium A-D] 2 mg PO ONCE #30 tablet 07/29/24 Simethicone [Gas-X] 125 mg PO QID #40 capsule 07/30/24 diazePAM [Valium] 2 mg PO BID PRN 3 Days #6 tab 09/03/24 Dicyclomine [Bentyl] 20 mg PO TID #30 tablet 10/03/24 Metoclopramide [Reglan] 10 mg PO Q6H PRN #20 tab 10/13/24 Docusate [Colace] 100 mg PO DAILY PRN 14 Days #14 10/21/24 capsule Allergies Allergy/AdvReac Type Severity Reaction Status Date / Time aripiprazole [From Abilify] Allergy Unknown Agitation Verified 11/05/24 23:20 cariprazine [From Vraylar] Allergy Unknown Agitation Verified 11/05/24 23:20 citalopram [From Celexa] Allergy Unknown Agitation Verified 11/05/24 23:20 divalproex sodium Allergy Unknown Agitation Verified 11/05/24 23:20 [From Depakote] paroxetine [From Paxil] Allergy Unknown Agitation Verified 11/05/24 23:20 sertraline [From Zoloft] Allergy Unknown Agitation Verified 11/05/24 23:20 metoclopramide [From Reglan] Allergy Rash/Hives Verified 11/05/24 23:20 phenobarbital AdvReac Severe Rapid Verified 11/05/24 23:20 Heart Rate zolpidem tartrate AdvReac Unknown Altered Verified 11/05/24 23:20 [From Ambien] Mental Status dicyclomine [From Bentyl] AdvReac Rapid Verified 11/05/24 23:20 Heart Rate estropipate [From Ogen 2.5] AdvReac Twitching Verified 11/05/24 23:20 of Legs haloperidol [From Haldol] AdvReac Agitation Verified 11/05/24 23:20 ketorolac [From Toradol] AdvReac Unknown Verified 11/05/24 23:20 lorazepam [From Ativan] AdvReac Hallucinati Verified 11/05/24 23:20 ons methylprednisolone AdvReac Altered Verified 11/05/24 23:20 [From Solu-Medrol] Mental Status ondansetron [From Zofran] AdvReac Unknown Verified 11/05/24 23:20 Review of Systems ROS Statement: Those systems with pertinent positive or pertinent negative responses have been documented in the HPI. ROS Other: All systems not noted in ROS Statement are negative. Constitutional: Denies: fever, chills Respiratory: Denies: dyspnea Cardiovascular: Denies: chest pain Gastrointestinal: Reports: abdominal pain, diarrhea. 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 PT IS ABLE TO MAKE DECISIONS FOR HIMSELF,IBS History of Any Multi-Drug Resistant Organisms: None Reported Past Surgical History: Tonsillectomy Additional Past Surgical History / Comment(s): wisdom teeth removed. Past Anesthesia/Blood Transfusion Reactions: No Reported Reaction Additional Past Anesthesia/Blood Transfusion Reaction / Comment(s): NEVER HAD BLOOD TRANSFUSION Past Psychological History: ADD/ADHD, Anxiety, Bipolar, Depression, PTSD Smoking Status: Former smoker Past Alcohol Use History: None Reported Past Drug Use History: None Reported - Past Family History Sister(s) Additional Family Medical History / Comment(s): He has one sister that is healthy. He also has a 4-year-old daughter that is healthy. Father Family Medical History: GERD/Reflux Additional Family Medical History / Comment(s): DAD HAS ALSO NEVER BEEN AN ALCOHOLIC-RARELY, RARELY DRINKS. Mother Family Medical History: Cancer Additional Family Medical History / Comment(s): MOM STATES SHE HAS NEVER BEEN AN ALCOHOLIC-MOM RARELY ,RARELY DRINKS. HX THYROID CANCER General Exam - General Exam Comments Initial Comments: PE: CONSTITUTIONAL: No apparent distress, well appearing SKIN: Warm, dry, no jaundice, hives or petechiae EYES: Pupils are equally round, extraocular movements intact without nystagmus, clear conjunctiva, non-icteric sclera HENT: Normocephalic, atraumatic, moist mucus membranes, oropharynx clear without exudates NECK: , Full range of motion, normal appearance PULMONARY: Clear to auscultation without wheezes, rhonchi, or rales, normal excursion, no accessory muscle use and no stridor CARDIOVASCULAR: Regular rate, rhythm, normal S1 and S2. No appreciated murmurs, rubs or gallops. Strong radial pulses with intact distal perfusion. No lower extremity edema GASTROINTESTINAL: Soft, hyperactiveactive bowel sounds throughout, endorses TTP of LLQ, though does not appear to guard with distraction, no RLQ TTP, negative Mcburny's point, no periumblical TTP, non-distended, no palpable masses, no rebound or guarding. No hepatosplenomegaly GENITOURINARY: MUSCULOSKELETAL: Extremities have no gross deformity, no edema, redness, or swelling. No calf swelling NEUROLOGIC:_a/o x 3, GCS 15, normal mentation and speech. Moves all extremities x 4 without motor or sensory deficit PSYCHIATRIC:_normal mood and affect, thought process is clear and linear Limitations: no limitations Course Vital Signs 11/05/24 23:15 Temperature 98.5 F Pulse Rate 101 H Respiratory 20 Rate Blood Pressure 100/65 O2 Sat by Pulse 98 Oximetry Medical Decision Making - Medical Decision Making Was pt. sent in by a medical professional or institution (, PA, SODA WORKER, urgent care, hospital, or long-term...) When possible be specific @ -[No] Did you speak to anyone other than the patient for history (EMS, parent, family, police, friend...)? What history was obtained from this source @ -[No] Did you review nursing and triage notes (agree or disagree)? Why? @ -[I reviewed nursing and triage notes] Were old charts reviewed (outside hosp., previous admission, EMS record, old EKG, old radiological studies, urgent care reports/EKG's, long-term records)? Report findings @ -[Medical records reviewed]Records reviewed, patient has had multiple visits this month alone for abdominal pain, his most recent visit of which was on 11/03/2024 and at that point had endorsed testicular pain, scrotal ultrasound at that time showed no acute process Differential Diagnosis (chest pain, altered mental status, abdominal pain women, abdominal pain men, vaginal bleeding, weakness, fever, dyspnea, syncope, headache, dizziness, GI bleed, back pain, seizure, CVA, palpatations, mental health, musculoskeletal)? @Differential Abdominal Pain Men: Appendicitis, cholecystitis, diverticulosis, ischemic bowel, pancreatitis, hepatitis, UTI, gastroenteritis, AAA, incarcerated hernia, bowel obstruction, constipation, inflammatory bowel, hepatitis, peptic ulcer disease, splenic infarction, perforated viscus, testicular torsion, this is not meant to be an all-inclusive list EKG interpreted by me (3pts min.). @ -[As above] X-rays interpreted by me (1pt min.). @ -[None done] CT interpreted by me (1pt min.). @ -[None done] U/S interpreted by me (1pt. min.). @ -[None done] What testing was considered but not performed or refused? (CT, X-rays, U/S, chelsi bs)? Why? @ -Imaging of the abdomen was considered however patient is afebrile, has an overall benign abdominal exam, did not endorse tenderness outpatient to the left lower quadrant of the abdomen however when patient was distracted and discussing history was made and the area was palpated again he displayed no guarding or tenderness palpation, negative McBurney sign, negative periumbilical tenderness, abdomen is otherwise soft with hyperactive bowel sounds. Labs are overall reassuring without any leukocytosis or elevated neutrophils. Therefore I feel the risk of radiation exposure to the patient outweighs any potential benefit and is not indicated at this time What meds were considered but not given or refused? Why? @ -[None] Did you discuss the management of the patient with other professionals (professionals i.e. , PA, SODA WORKER, lab, RT, psych nurse, aids social worker, load out supervisor, teacher, credit control officer, field case manager)? Give summary @ -[No] Was smoking cessation discussed for >3mins.? @ -[No] Was critical care preformed (if so, how long)? @ -[No] Were there social determinants of health that impacted care today? How? (Homelessness, low income, unemployed, alcoholism, drug addiction, tra nsportation, low edu. Level, literacy, decrease access to med. care, senior care, rehab)? @ -[No] Was there de-escalation of care discussed even if they declined (Discuss DNR or withdrawal of care, Hospice)? @ -[No] What co-morbidities impacted this encounter? (DM, HTN, Smoking, COPD, CAD, Cancer, CVA, ARF, Chemo, Hep., AIDS, mental health diagnosis, sleep apnea, morbid obesity)? @IBS Was patient admitted / discharged? Hospital course, mention meds given and route, prescriptions, significant lab abnormalities, going to OR and other pertinent info. @ -Discharge-patient is a 34-year-old male past medical history IBS presenting for recurrent abdominal pain and complaints of 3 episodes of diarrhea tod ay.Vital signs reviewed, patient is very mildly tachycardic on arrival with heart rate 101 otherwise vital signs within acceptable limits. I am very familiar with this patient and have seen him multiple times in the past in the emergency department. Today he is well-appearing and at his baseline, is not ill appearing or toxic appearing. Endorsed LLQ TTP + diarrhea. No fevers. His biggest concern this evening his is diarrhea and he would like something to get it under control. Given TTP noted on exam we will obtain basic labs, UA, cephied testing and give IV fluids, loperamide and GI cocktail. Of note, pt states pain is "10/10" and is resting comfortably in bed. Patient agreeable plan of c are. On reassessment patient endorses improvement of symptoms. Labs are reassuring without leukocytosis, no RAVEN, LFTs wnl, GFR wnl. UA pending, anticipate discharge. Urinalysis resulted and was unremarkable without signs of dehydration or blood or infection. Patient will be discharged home to follow-up with his PCP and clock maker. Undiagnosed new problem with uncertain prognosis? @ -[No] Drug Therapy requiring intensive monitoring for toxicity (Heparin, Nitro, Insulin, Cardizem)? @ -[No] Were any procedures done? @ -[No] Diagnosis/symptom? @Abdominal pain, diarrhea Acute, or Chronic, or Acute on Chronic? Acute and acute on chronic Uncomplicated (without systemic symptoms) or Complicated (systemic symptoms)? @ -Uncomplicated Side effects of treatment? @ -[No] Exacerbation, Progression, or Severe Exacerbation? @ -[No] Poses a threat to life or bodily function? How? (Chest pain, USA, SC, pneumonia, PE, COPD, DKA, ARF, appy, cholecystitis, CVA, Diverticulitis, Homicidal, Suicid al, threat to staff... and all critical care pts) @ -[No] - Lab Data Result diagrams: 11/05/24 23:20 11/05/24 23:20 Lab Results 11/05/24 11/05/24 11/05/24 Range/Units 23:20 23:20 23:20 WBC 6.6 (3.8-10.6) k/uL RBC 4.95 (4.30-5.90) m/uL Hgb 15.2 (13.0-17.5) gm/dL Hct 46.9 (39.0-53.0) % MCV 94.8 (80.0-100.0) fL MCH 30.8 (25.0-35.0) pg MCHC 32.4 (31.0-37.0) g/dL RDW 13.5 (11.5-15.5) % Plt Count 192 (150-450) k/uL MPV 8.3 Neutrophils % 52 % Lymphocytes % 38 % Monocytes % 5 % Eosinophils % 3 % Basophils % 0 % Neutrophils # 3.5 (1.3-7.7) k/uL Lymphocytes # 2.5 (1.0-4.8) k/uL Monocytes # 0.4 (0-1.0) k/uL Eosinophils # 0.2 (0-0.7) k/uL Basophils # 0.0 (0-0.2) k/uL Sodium 139 (137-145) mmol/L Potassium 4.0 (3.5-5.1) mmol/L Chloride 100 (98-107) mmol/L Carbon Dioxide 29 (22-30) mmol/L Anion Gap 10 mmol/L BUN 14 (9-20) mg/dL Creatinine 0.69 (0.66-1.25) mg/dL Est GFR (CKD-EPI)AfAm >90 (>60 ml/min/1.73 sqM) Est GFR (CKD-EPI)NonAf >90 (>60 ml/min/1.73 sqM) Glucose 84 (74-99) mg/dL Calcium 9.9 (8.4-10.2) mg/dL Total Bilirubin 0.7 (0.2-1.3) mg/dL AST 21 (17-59) U/L ALT 13 (4-49) U/L Alkaline Phosphatase 76 (38-126) U/L Total Protein 6.9 (6.3-8.2) g/dL Albumin 4.7 (3.5-5.0) g/dL Lipase 19 L (23-300) U/L Influenza Type A (PCR) Not Detected (Not Detectd) Influenza Type B (PCR) Not Detected (Not Detectd) RSV (PCR) Not Detected (Not Detectd) SARS-CoV-2 (PCR) Not Detected (Not Detectd) Disposition Clinical Impression: Diarrhea Disposition: HOME SELF-CARE Condition: Stable Instructions (If sedation given, give patient instructions): Loperamide (By mouth), Irritable Bowel Syndrome (DC) Additional Instructions: Every disease is a spectrum and a small chance still exists that a serious condition could develop, for this reason, please monitor yourself closely for new, changing or worsening symptoms, symptoms that persist beyond 48 hours, signs of dehydration such as dry lips, no urine output for greater than 9 hours, lightheadedness and dizziness, please monitor for black or bloody stools, fever, inability to tolerate/keep down fluids or your medications, inability to follow up with outpatient providers as instructed and should you experience these symptoms or should you have any further concerns for your wellbeing please return to the ED or call 911 immediately. Please be sure to stay hydrated with plenty of clear uncaffienated fluids. Please continue to follow up with your GI doctor for your chronic abdominal pain. PLEASE call your primary care physician as soon as possible to arrange / discuss plan for followup appointment. Appointment in the next 1-3 days is strongly encouraged if possible. PLEASE let us know here before you leave if there is anything further we can do to be of any assistance. Take care and feel Better! Is patient prescribed a controlled substance at d/c from ED?: No Referrals: Sumeet Mejias III, MD [Primary Care Provider] - 1-2 days
[2024-11-06 00:35] LABS: Influenza A Not Detected (Not Detectd); Influenza B Not Detected (Not Detectd); RSV Not Detected (Not Detectd)
[2024-11-06 01:03] LABS: Appearance,Urine Clear (Clear); Bilirubin,Urine Negative (Negative); Blood,Urine Negative (Negative); Color,Urine Yellow; Glucose,Urine (UA) Negative (Negative); Ketones,Urine Negative (Negative); Leukocyte Esterase,Urine Negative (Negative); Nitrite,Urine Negative (Negative); PH, Urine 6.5 (5.0-8.0); Protein,Urine Negative (Negative); Urobilinogen,Urine <2.0 mg/dL (<2.0)
[2024-11-06] MEDS: CALCIUM CARBONATE 500 MG CHEWABLE PO STA (01:06)
[2024-11-06 01:45] VITALS: BP 119/68; PULSE 70; RESP 76
== END 2024-11-06 01:22 | disposition home or self-care (01) ==
LOC: EC 23:08
DX: K58.0 Irritable bowel syndrome with diarrhea (principal); Z87.891 Personal history of nicotine dependence; Z88.5 Allergy status to narcotic agent; Z88.8 Allergy status to other drugs, medicaments and biological substances
CPT/HCPCS: 36415; 80053; 81003; 83690; 85025; 87636; 96361; 96374; 96375; 99284

== ENCOUNTER 2024-11-09 02:02 | Emergency (ER) | payer OTHER ==
[2024-11-09 02:26] VITALS: TEMP 99.4
[2024-11-09] MEDS: FAMOTIDINE 20 MG/2 ML VIAL IV STA (03:06)
[2024-11-09] MEDS: PANTOPRAZOLE 40 MG/10 ML VIAL IVP STA (03:06)
[2024-11-09 03:38] LABS: Basophils % (A) 0 %; Eosinophils # (A) 0.2 k/uL (0-0.7); Eosinophils % (A) 3 %; HCT 45.7 % (39.0-53.0); HGB 14.7 gm/dL (13.0-17.5); Lymphocytes # (A) 2.1 k/uL (1.0-4.8); Lymphocytes % (A) 25 %; MCH 30.2 pg (25.0-35.0); MCHC 32.3 g/dL (31.0-37.0); MCV 93.5 fL (80.0-100.0); Mean Platelet Volume 7.5; Monocytes # (A) 0.6 k/uL (0-1.0); Monocytes % (A) 7 %; Neutrophils # (A) 5.7 k/uL (1.3-7.7); Neutrophils % (A) 65 %; Platelet Count 185 k/uL (150-450); RBC 4.89 m/uL (4.30-5.90); RDW 13.3 % (11.5-15.5); WBC 8.7 k/uL (3.8-10.6)
[2024-11-09 04:23] LABS: ALT 27 U/L (4-49); AST 54 U/L (17-59); African American GFR (CKD) >90 (>60 ml/min/1.73 sqM); Albumin 4.7 g/dL (3.5-5.0); Alkaline Phosphatase 91 U/L (38-126); Anion Gap 17 mmol/L; Blood Urea Nitrogen 16 mg/dL (9-20); Carbon Dioxide 19 mmol/L (22-30); Chloride 104 mmol/L (98-107); Glucose 125 mg/dL (74-99); Lipase 26 U/L (23-300); Non-African American GFR(CKD) >90 (>60 ml/min/1.73 sqM); Potassium 4.2 mmol/L (3.5-5.1); Sodium 140 mmol/L (137-145); Total Protein 7.1 g/dL (6.3-8.2)
[2024-11-09] MEDS: ACETAMINOPHEN TAB 500 MG TAB PO STA (04:45)
--- NOTE | 2024-11-09 04:55 | ED ---
Abdominal Pain HPI - General Chief Complaint: Abdominal Pain Stated Complaint: Abd pain Time Seen by Provider: 11/09/24 02:05 Source: patient Mode of arrival: ambulatory Limitations: no limitations - History of Present Illness Initial Comments: 34-year-old male presents emergency department with abdominal pain. Patient is well-known to the emergency department for his daily visits to the emergency department. He does have a history of Crohn's disease. He is on several medications for his chronic abdominal pain and follows with Dr. Mendoza. He presents today reporting continued abdominal pain without changes. No fevers. No nausea or vomiting. No diarrhea. No black or bloody stools. No dysuria, hematuria or difficulty voiding. He did take his home medications without any improvement in his symptoms. Patient is requesting morphine upon my initial evaluation. He denies any testicular pain or swelling. No other alleviating, p recipitating modifying factors - Related Data Home Medications Medication Instructions Recorded Confirmed Nicotine 21Mg/24Hr Patch [Habitrol] 1 patch TRANSDERM HS 07/18/24 07/19/24 Previous Rx's Medication Instructions Recorded ALPRAZolam [Xanax] 0.5 mg PO TID PRN #9 tablet 07/18/24 Nicotine 14Mg/24Hr Patch [Habitrol] 1 patch TRANSDERM DAILY patch 07/21/24 Omeprazole [PriLOSEC] 20 mg PO AC-BRKFST 30 Days #30 cap 07/21/24 Ziprasidone [Geodon] 20 mg PO 1700 30 Days #30 cap 07/21/24 fluvoxaMINE MALEATE 50 mg PO BID 30 Days #60 tab 07/21/24 lamoTRIgine [LaMICtal] 100 mg PO DAILY 30 Days #30 tab 07/21/24 Loperamide HCl [Imodium A-D] 2 mg PO ONCE #30 tablet 07/29/24 Simethicone [Gas-X] 125 mg PO QID #40 capsule 07/30/24 diazePAM [Valium] 2 mg PO BID PRN 3 Days #6 tab 09/03/24 Dicyclomine [Bentyl] 20 mg PO TID #30 tablet 10/03/24 Metoclopramide [Reglan] 10 mg PO Q6H PRN #20 tab 10/13/24 Docusate [Colace] 100 mg PO DAILY PRN 14 Days #14 10/21/24 capsule Allergies Allergy/AdvReac Type Severity Reaction Status Date / Time aripiprazole [From Abilify] Allergy Unknown Agitation Verified 11/09/24 02:05 cariprazine [From Vraylar] Allergy Unknown Agitation Verified 11/09/24 02:05 citalopram [From Celexa] Allergy Unknown Agitation Verified 11/09/24 02:05 divalproex sodium Allergy Unknown Agitation Verified 11/09/24 02:05 [From Depakote] paroxetine [From Paxil] Allergy Unknown Agitation Verified 11/09/24 02:05 sertraline [From Zoloft] Allergy Unknown Agitation Verified 11/09/24 02:05 metoclopramide [From Reglan] Allergy Rash/Hives Verified 11/09/24 02:05 phenobarbital AdvReac Severe Rapid Verified 11/09/24 02:05 Heart Rate zolpidem tartrate AdvReac Unknown Altered Verified 11/09/24 02:05 [From Ambien] Mental Status dicyclomine [From Bentyl] AdvReac Rapid Verified 11/09/24 02:05 Heart Rate estropipate [From Ogen 2.5] AdvReac Twitching Verified 11/09/24 02:05 of Legs haloperidol [From Haldol] AdvReac Agitation Verified 11/09/24 02:05 ketorolac [From Toradol] AdvReac Unknown Verified 11/09/24 02:05 lorazepam [From Ativan] AdvReac Hallucinati Verified 11/09/24 02:05 ons methylprednisolone AdvReac Altered Verified 11/09/24 02:05 [From Solu-Medrol] Mental Status ondansetron [From Zofran] AdvReac Unknown Verified 11/09/24 02:05 Review of Systems ROS Statement: Those systems with pertinent positive or pertinent negative responses have been documented in the HPI. ROS Other: All systems not noted in ROS Statement are negative. 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 PT IS ABLE TO MAKE DECISIONS FOR HIMSELF,IBS History of Any Multi-Drug Resistant Organisms: None Reported Past Surgical History: Tonsillectomy Additional Past Surgical History / Comment(s): wisdom teeth removed. Past Anesthesia/Blood Transfusion Reactions: No Reported Reaction Additional Past Anesthesia/Blood Transfusion Reaction / Comment(s): NEVER HAD BLOOD TRANSFUSION Past Psychological History: ADD/ADHD, Anxiety, Bipolar, Depression, PTSD Smoking Status: Former smoker Past Alcohol Use History: None Reported Past Drug Use History: None Reported - Past Family History Sister(s) Additional Family Medical History / Comment(s): He has one sister that is healthy. He also has a 4-year-old daughter that is healthy. Father Family Medical History: GERD/Reflux Additional Family Medical History / Comment(s): DAD HAS ALSO NEVER BEEN AN ALCOHOLIC-RARELY, RARELY DRINKS. Mother Family Medical History: Cancer Additional Family Medical History / Comment(s): MOM STATES SHE HAS NEVER BEEN AN ALCOHOLIC-MOM RARELY ,RARELY DRINKS. HX THYROID CANCER General Exam Limitations: no limitations General appearance: alert, in no apparent distress Head exam: Present: atraumatic, normocephalic, normal inspection Eye exam: Present: normal appearance, PERRL, EOMI. Absent: scleral icterus, conjunctival injection, periorbital swelling ENT exam: Present: normal exam, mucous membranes moist Neck exam: Present: normal inspection. Absent: tenderness, meningismus, lymphadenopathy Respiratory exam: Present: normal lung sounds bilaterally. Absent: respiratory distress, wheezes, rales, rhonchi, stridor Cardiovascular Exam: Present: regular rate, normal rhythm, normal heart sounds. Absent: systolic murmur, diastolic murmur, rubs, gallop, clicks GI/Abdominal exam: Present: soft, normal bowel sounds. Absent: distended, tenderness, guarding, rebound, rigid Extremities exam: Present: normal inspection, full ROM, normal capillary refill. Absent: tenderness, pedal edema, joint swelling, calf tenderness Back exam: Present: normal inspection Neurological exam: Present: alert, oriented X3, CN II-XII intact Psychiatric exam: Present: normal affect, normal mood Skin exam: Present: warm, dry, intact, normal color. Absent: rash Course Vital Signs 11/09/24 11/09/24 02:03 05:04 Temperature 99.4 F Pulse Rate 118 H 94 Respiratory 20 16 Rate Blood Pressure 108/73 107/68 O2 Sat by Pulse 96 96 Oximetry Medical Decision Making - Medical Decision Making Was pt. sent in by a medical professional or institution (LINO Patel, PROMOTIONAL MARKETING AGENT, urgent care, hospital, or halfway...) When possible be specific @ -No Did you speak to anyone other than the patient for history (EMS, parent, family, police, friend...)? What history was obtained from this source @ -No Did you review nursing and triage notes (agree or disagree)? Why? @ -I reviewed and agree with nursing and triage notes Were old charts reviewed (outside hosp., previous admission, EMS record, old EKG, old radiological studies, urgent care reports/EKG's, halfway records)? Report findings @ -No old charts were reviewed Differential Diagnosis (chest pain, altered mental status, abdominal pain women, abdominal pain men, vaginal bleeding, weakness, fever, dyspnea, syncope, headache, dizziness, GI bleed, back pain, seizure, CVA, palpatations, mental health, musculoskeletal)? @ -Differential Abdominal Pain Men: Appendicitis, cholecystitis, diverticulosis, ischemic bowel, pancreatitis, hepatitis, UTI, gastroenteritis, AAA, incarcerated hernia, bowel obstruction, constipation, inflammatory bowel, hepatitis, peptic ulcer disease, splenic infarction, perforated viscus, testicular torsion, this is not meant to be an all-inclusive list EKG interpreted by me (3pts min.). @ -Not done X-rays interpreted by me (1pt min.). @ -None done CT interpreted by me (1pt min.). @ -None done U/S interpreted by me (1pt. min.). @ -None done What testing was considered but not performed or refused? (CT, X-rays, U/S, labs)? Why? @ -None What meds were considered but not given or refused? Why? @ -None Did you discuss the management of the patient with other professionals (professionals i.e. LINO Patel, PROMOTIONAL MARKETING AGENT, lab, RT, psych nurse, social security specialist, die maintenance technician, teacher, parking control officer, lead case manager)? Give summary @ -No Was smoking cessation discussed for >3mins.? @ -No Was critical care preformed (if so, how long)? @ -No Were there social determinants of health that impacted care today? How? (Homelessness, low income, unemployed, alcoholism, drug addiction, transportation, low edu. Level, literacy, decrease access to med. care, group home, rehab)? @ -No Was there de-escalation of care discussed even if they declined (Discuss DNR or withdrawal of care, Hospice)? DNR status @ -No What co-morbidities impacted this encounter? (DM, HTN, Smoking, COPD, CAD, Cancer, CVA, ARF, Chemo, Hep., AIDS, mental health diagnosis, sleep apnea, morbid obesity)? @ -Chronic abdominal pain, Crohn's disease Was patient admitted / discharged? Hospital course, mention meds given and route, prescriptions, significant lab abnormalities, going to OR and other pertinent info. @ -Upon arrival patient seen and evaluated in bed 18. Thorough history and physical exam was performed. IV access is established. Patient is given intravenous fluids. Laboratory studies are conducted. Patient is requesting morphine. I informed him that I do not provide opiates for chronic pain. I do not find an immediate need to utilize these medications today as I do not feel that there is any acute condition. He was offered Tylenol. Laboratory studies are within normal limits. Patient has had recent CT scanning and ultrasound. Patient will be discharged home at this time. Recommended that he follow-up with his GI doctor for further evaluation of his pain. Return for any new or worsening symptoms. Patient agreeable plan was discharged in stable condition Undiagnosed new problem with uncertain prognosis? @ -No Drug Therapy requiring intensive monitoring for toxicity (Heparin, Nitro, Insulin, Cardizem)? @ -No Were any procedures done? @ -No Diagnosis/symptom? @ -Acute exacerbation of chronic abdominal pain Acute, or Chronic, or Acute on Chronic? @ -Acute on chronic Uncomplicated (without systemic symptoms) or Complicated (systemic symptoms)? @ -Complicated Side effects of treatment? @ -No Exacerbation, Progression, or Severe Exacerbation? @ -No Poses a threat to life or bodily function? How? (Chest pain, [place], [place], pneumonia, PE, COPD, DKA, ARF, appy, cholecystitis, CVA, Diverticulitis, Homicidal, Suicidal, threat to staff... and all critical care pts) @ -No - Lab Data Result diagrams: 11/09/24 03:01 11/09/24 03:01 Lab Results 11/09/24 11/09/24 11/09/24 Range/Units 03:01 03:01 03:01 WBC 8.7 (3.8-10.6) k/uL RBC 4.89 (4.30-5.90) m/uL Hgb 14.7 (13.0-17.5) gm/dL Hct 45.7 (39.0-53.0) % MCV 93.5 (80.0-100.0) fL MCH 30.2 (25.0-35.0) pg MCHC 32.3 (31.0-37.0) g/dL RDW 13.3 (11.5-15.5) % Plt Count 185 (150-450) k/uL MPV 7.5 Neutrophils % 65 % Lymphocytes % 25 % Monocytes % 7 % Eosinophils % 3 % Basophils % 0 % Neutrophils # 5.7 (1.3-7.7) k/uL Lymphocytes # 2.1 (1.0-4.8) k/uL Monocytes # 0.6 (0-1.0) k/uL Eosinophils # 0.2 (0-0.7) k/uL Basophils # 0.0 (0-0.2) k/uL Sodium 140 (137-145) mmol/L Potassium 4.2 (3.5-5.1) mmol/L Chloride 104 (98-107) mmol/L Carbon Dioxide 19 L (22-30) mmol/L Anion Gap 17 mmol/L BUN 16 (9-20) mg/dL Creatinine 0.89 (0.66-1.25) mg/dL Est GFR (CKD-EPI)AfAm >90 (>60 ml/min/1.73 sqM) Est GFR (CKD-EPI)NonAf >90 (>60 ml/min/1.73 sqM) Glucose 125 H (74-99) mg/dL Plasma Lactic Acid Socrates 1.6 (0.7-2.0) mmol/L Calcium 10.0 (8.4-10.2) mg/dL Total Bilirubin 1.0 (0.2-1.3) mg/dL AST 54 (17-59) U/L ALT 27 (4-49) U/L Alkaline Phosphatase 91 (38-126) U/L Total Protein 7.1 (6.3-8.2) g/dL Albumin 4.7 (3.5-5.0) g/dL Lipase 26 (23-300) U/L Disposition Clinical Impression: Chronic abdominal pain Disposition: HOME SELF-CARE Condition: Stable Instructions (If sedation given, give patient instructions): Abdominal Pain (ED) Is patient prescribed a controlled substance at d/c from ED?: No Referrals: Sumeet Mejias III, MD [Primary Care Provider] - 1-2 days Time of Disposition: 04:55
[2024-11-09 05:05] VITALS: BP 107/68; PULSE 94; RESP 16
== END 2024-11-09 05:04 | disposition home or self-care (01) ==
LOC: EC 02:02
DX: G89.29 Other chronic pain (principal); R10.9 Unspecified abdominal pain; K50.90 Crohn's disease, unspecified, without complications; Z87.891 Personal history of nicotine dependence; Z88.8 Allergy status to other drugs, medicaments and biological substances; Z88.6 Allergy status to analgesic agent
CPT/HCPCS: 36415; 80053; 83605; 83690; 85025; 99284; 96374; 96375; J3490; J2470

== ENCOUNTER 2024-11-27 20:40 | Emergency (ER) | payer OTHER ==
--- NOTE | 2024-11-27 21:17 | ED ---
Abdominal Pain HPI - General Chief Complaint: Abdominal Pain Stated Complaint: Abd Pain Time Seen by Provider: 11/27/24 21:02 Source: patient Mode of arrival: ambulatory - History of Present Illness Initial Comments: Patient is a 34-year-old man who states he has history irritable bowel syndrome. The patient complains of days of pain now and of not having had a bowel movement he states for 8 days. Patient reports trying Colace, magnesium citrate, and he thinks lactulose without having had bowel movement. Patient denies passing any bloody or tarry stool. He indicates pain diffusely through the abdomen stating that it seems to be at different places at different times c omes in waves. No fevers noted. No vomiting. No change in urination. No pain to the scrotum or testicles MD Complaint: abdominal pain -: days(s) Location: diffuse Radiation: none Severity: severe Quality: cramping, sharp Consistency: colicky Improves With: nothing Worsens With: nothing Associated Symptoms: constipation - Related Data Home Medications Medication Instructions Recorded Confirmed Nicotine 21Mg/24Hr Patch [Habitrol] 1 patch TRANSDERM HS 07/18/24 07/19/24 Previous Rx's Medication Instructions Recorded ALPRAZolam [Xanax] 0.5 mg PO TID PRN #9 tablet 07/18/24 Nicotine 14Mg/24Hr Patch [Habitrol] 1 patch TRANSDERM DAILY patch 07/21/24 Omeprazole [PriLOSEC] 20 mg PO AC-BRKFST 30 Days #30 cap 07/21/24 Ziprasidone [Geodon] 20 mg PO 1700 30 Days #30 cap 07/21/24 fluvoxaMINE MALEATE 50 mg PO BID 30 Days #60 tab 07/21/24 lamoTRIgine [LaMICtal] 100 mg PO DAILY 30 Days #30 tab 07/21/24 Loperamide HCl [Imodium A-D] 2 mg PO ONCE #30 tablet 07/29/24 Simethicone [Gas-X] 125 mg PO QID #40 capsule 07/30/24 diazePAM [Valium] 2 mg PO BID PRN 3 Days #6 tab 09/03/24 Dicyclomine [Bentyl] 20 mg PO TID #30 tablet 10/03/24 Metoclopramide [Reglan] 10 mg PO Q6H PRN #20 tab 10/13/24 Docusate [Colace] 100 mg PO DAILY PRN 14 Days #14 10/21/24 capsule Allergies Allergy/AdvReac Type Severity Reaction Status Date / Time aripiprazole [From Abilify] Allergy Unknown Agitation Verified 12/09/24 18:01 cariprazine [From Vraylar] Allergy Unknown Agitation Verified 12/09/24 18:01 citalopram [From Celexa] Allergy Unknown Agitation Verified 12/09/24 18:01 divalproex sodium Allergy Unknown Agitation Verified 12/09/24 18:01 [From Depakote] paroxetine [From Paxil] Allergy Unknown Agitation Verified 12/09/24 18:01 sertraline [From Zoloft] Allergy Unknown Agitation Verified 12/09/24 18:01 metoclopramide [From Reglan] Allergy Rash/Hives Verified 12/09/24 18:01 phenobarbital AdvReac Severe Rapid Verified 12/09/24 18:01 Heart Rate zolpidem tartrate AdvReac Unknown Altered Verified 12/09/24 18:01 [From Ambien] Mental Status dicyclomine [From Bentyl] AdvReac Rapid Verified 12/09/24 18:01 Heart Rate estropipate [From Ogen 2.5] AdvReac Twitching Verified 12/09/24 18:01 of Legs haloperidol [From Haldol] AdvReac Agitation Verified 12/09/24 18:01 ketorolac [From Toradol] AdvReac Unknown Verified 12/09/24 18:01 lorazepam [From Ativan] AdvReac Hallucinati Verified 12/09/24 18:01 ons methylprednisolone AdvReac Altered Verified 12/09/24 18:01 [From Solu-Medrol] Mental Status ondansetron [From Zofran] AdvReac Unknown Verified 12/09/24 18:01 Review of Systems ROS Statement: Those systems with pertinent positive or pertinent negative responses have been documented in the HPI. ROS Other: All systems not noted in ROS Statement are negative. Constitutional: Denies: fever, chills Respiratory: Denies: cough, dyspnea Cardiovascular: Denies: chest pain, palpitations, edema, syncope Gastrointestinal: Reports: abdominal pain, constipation. 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 PT IS ABLE TO MAKE DECISIONS FOR HIMSELF,IBS History of Any Multi-Drug Resistant Organisms: None Reported Past Surgical History: Tonsillectomy Additional Past Surgical History / Comment(s): wisdom teeth removed. Past Anesthesia/Blood Transfusion Reactions: No Reported Reaction Additional Past Anesthesia/Blood Transfusion Reaction / Comment(s): NEVER HAD BLOOD TRANSFUSION Past Psychological History: ADD/ADHD, Anxiety, Bipolar, Depression, PTSD Smoking Status: Former smoker Past Alcohol Use History: None Reported Past Drug Use History: None Reported - Past Family History Sister(s) Additional Family Medical History / Comment(s): He has one sister that is healthy. He also has a 4-year-old daughter that is healthy. Father Family Medical History: GERD/Reflux Additional Family Medical History / Comment(s): DAD HAS ALSO NEVER BEEN AN ALCOHOLIC-RARELY, RARELY DRINKS. Mother Family Medical History: Cancer Additional Family Medical History / Comment(s): MOM STATES SHE HAS NEVER BEEN AN ALCOHOLIC-MOM RARELY ,RARELY DRINKS. HX THYROID CANCER General Exam General appearance: alert, in no apparent distress Head exam: Present: atraumatic, normocephalic Eye exam: Present: normal appearance. Absent: scleral icterus, conjunctival injection ENT exam: Present: normal oropharynx Neck exam: Present: normal inspection Respiratory exam: Present: normal lung sounds bilaterally. Absent: respiratory distress, wheezes, rales, rhonchi, stridor, accessory muscle use Cardiovascular Exam: Present: regular rate, normal rhythm, normal heart sounds. Absent: systolic murmur, diastolic murmur, rubs, gallop GI/Abdominal exam: Present: soft. Absent: distended, tenderness, guarding, rebound, rigid, mass, pulsatile mass Extremities exam: Present: normal inspection, normal capillary refill. Absent: pedal edema, calf tenderness Back exam: Present: normal inspection. Absent: CVA tenderness (R), CVA tend erness (L) Neurological exam: Present: alert Skin exam: Present: warm, dry, intact, normal color. Absent: rash Course Vital Signs 11/27/24 11/28/24 20:45 03:14 Temperature 99.0 F 98.0 F Pulse Rate 102 H 91 Respiratory 18 16 Rate Blood Pressure 121/79 109/75 O2 Sat by Pulse 100 96 Oximetry Medical Decision Making - Medical Decision Making The patient had KUB x-ray that I interpreted as negative for free air, obstruction, or foreign body Was pt. sent in by a medical professional or institution (, PA, AQUARIUM SPECIALIST, urgent care, hospital, or fpc...) When possible be specific @ -[No] Did you speak to anyone other than the patient for history (EMS, parent, family, police, friend...)? What history was obtained from this source @ -[No] Did you review nursing and triage notes (agree or disagree)? Why? @ -[I reviewed and agree with nursing and triage notes] Were old charts reviewed (outside hosp., previous admission, EMS record, old EKG, old radiological studies, urgent care reports/EKG's, fpc records)? Report findings @ -[No old charts were reviewed] Differential Diagnosis (chest pain, altered mental status, abdominal pain women, abdominal pain men, vaginal bleeding, weakness, fever, dyspnea, syncope, headache, dizziness, GI bleed, back pain, seizure, CVA, palpatations, mental health, musculoskeletal)? @ -[Differential Abdominal Pain Men: Appendicitis, cholecystitis, diverticulosis, ischemic bowel, pancreatitis, hepatitis, UTI, gastroenteritis, AAA, incarcerated hernia, bowel obstruction, constipation, inflammatory bowel, hepatitis, peptic ulcer disease, splenic infarction, perforated viscus, testicular torsion, this is not meant to be an all-inclusive list EKG interpreted by me (3pts min.). @ -[As above] X-rays interpreted by me (1pt min.). @ -[I interpreted as above CT interpreted by me (1pt min.). @ -[None done] U/S interpreted by me (1pt. min.). @ -[None done] What testing was considered but not performed or refused? (CT, X-rays, U/S, labs)? Why? @ -[None] What meds were considered but not given or refused? Why? @ -[None] Did you discuss the management of the patient with other professionals (professionals i.e. , PA, AQUARIUM SPECIALIST, lab, RT, psych nurse, social worker psychiatric, window systems administrator, teacher, officer lieutenant, case investigator)? Give summary @ -[No] Was smoking cessation discussed for >3mins.? @ -[No] Was critical care preformed (if so, how long)? @ -[No] Were there social determinants of health that impacted care today? How? (Homelessness, low income, unemployed, alcoholism, drug addiction, transportation, low edu. Level, literacy, decrease access to med. care, [facility], rehab)? @ -[No] Was there de-escalation of care discussed even if they declined (Discuss DNR or withdrawal of care, Hospice)? DNR status @ -[No] What co-morbidities impacted this encounter? (DM, HTN, Smoking, COPD, CAD, Cancer, CVA, ARF, Chemo, Hep., AIDS, mental health diagnosis, sleep apnea, morbid obesity)? @ -[None] Was patient admitted / discharged? Hospital course, mention meds given and route, prescriptions, significant lab abnormalities, going to OR and other pertinent info. @ -[Patient is 34-year-old man with chronic intermittent abdominal pains he refers to as IBS. The patient having flareup today that did improve after course in emergency department. He would like to go home. Discussed appropriate further care and follow-up Undiagnosed new problem with uncertain prognosis? @ -[No] Drug Therapy requiring intensive monitoring for toxicity (Heparin, Nitro, Insulin, Cardizem)? @ -[No] Were any procedures done? @ -[No] Diagnosis/symptom? @ -[Acute on chronic abdominal pain Acute, or Chronic, or Acute on Chronic? @ -[default] Uncomplicated (without systemic symptoms) or Complicated (systemic symptoms)? @ -[Uncomplicated Side effects of treatment? @ -[No] Exacerbation, Progression, or Severe Exacerbation? @ -[No] Poses a threat to life or bodily function? How? (Chest pain, USA, CA, pneumonia, PE, COPD, DKA, ARF, appy, cholecystitis, CVA, Diverticulitis, Homicidal, Suicidal, threat to staff... and all critical care pts) @ -[No] All treatments are based on ideal body weight as in ED triage - Lab Data Result diagrams: 11/27/24 21:29 11/27/24 21:29 Lab Results 11/27/24 11/27/24 11/27/24 Range/Units 21:29 21: 21:29 WBC 11.4 H (3.8-10.6) k/uL RBC 4.79 (4.30-5.90) m/uL Hgb 14.6 (13.0-17.5) gm/dL Hct 43.4 (39.0-53.0) % MCV 90.6 (80.0-100.0) fL MCH 30.4 (25.0-35.0) pg MCHC 33.6 (31.0-37.0) g/dL RDW 13.3 (11.5-15.5) % Plt Count 214 (150-450) k/uL MPV 7.7 Neutrophils % 73 % Lymphocytes % 20 % Monocytes % 6 % Eosinophils % 0 % Basophils % 0 % Neutrophils # 8.3 H (1.3-7.7) k/uL Lymphocytes # 2.3 (1.0-4.8) k/uL Monocytes # 0.7 (0-1.0) k/uL Eosinophils # 0.0 (0-0.7) k/uL Basophils # 0.0 (0-0.2) k/uL Sodium 138 (137-145) mmol/L Potassium 4.1 (3.5-5.1) mmol/L Chloride 103 (98-107) mmol/L Carbon Dioxide 27 (22-30) mmol/L Anion Gap 8 mmol/L BUN 16 (9-20) mg/dL Creatinine 1.12 (0.66-1.25) mg/dL Est GFR (CKD-EPI)AfAm >90 (>60 ml/min/1.73 sqM) Est GFR (CKD-EPI)NonAf 84 (>60 ml/min/1.73 sqM) Glucose 89 (74-99) mg/dL Plasma Lactic Acid Socrates (0.7-2.0) mmol/L Calcium 9.9 (8.4-10.2) mg/dL Total Bilirubin 0.9 (0.2-1.3) mg/dL AST 53 (17-59) U/L ALT 37 (4-49) U/L Alkaline Phosphatase 73 (38-126) U/L C-Reactive Protein <0.5 (<1.0) mg/dL Total Protein 7.1 (6.3-8.2) g/dL Albumin 4.7 (3.5-5.0) g/dL Amylase 41 (30-110) U/L Lipase 25 (23-300) U/L Urine Color Dark Yellow Urine Appearance Clear (Clear) Urine pH 6.0 (5.0-8.0) Ur Specific [place] 1.045 H (1.001-1.035) Urine Protein 1+ H (Negative) Urine Glucose (UA) Negative (Negative) Urine Ketones Trace H (Negative) Urine Blood Negative (Negative) Urine Nitrite Negative (Negative) Urine Bilirubin 1+ H (Negative) Urine Urobilinogen 8.0 (<2.0) mg/dL Ur Leukocyte Esterase Negative (Negative) Urine RBC 2 (0-5) /hpf Urine WBC 7 H (0-5) /hpf Ur Squamous Epith Cells <1 (0-4) /hpf Urine Bacteria Rare H (None) /hpf Hyaline Casts 9 H (0-2) /lpf Urine Mucus Many H (None) /hpf 11/27/24 Range/Units 21:29 WBC (3.8-10.6) k/uL RBC (4.30-5.90) m/uL Hgb (13.0-17.5) gm/dL Hct (39.0-53.0) % MCV (80.0-100.0) fL MCH (25.0-35.0) pg MCHC (31.0-37.0) g/dL RDW (11.5-15.5) % Plt Count (150-450) k/uL MPV Neutrophils % % Lymphocytes % % Monocytes % % Eosinophils % % Basophils % % Neutrophils # (1.3-7.7) k/uL Lymphocytes # (1.0-4.8) k/uL Monocytes # (0-1.0) k/uL Eosinophils # (0-0.7) k/uL Basophils # (0-0.2) k/uL Sodium (137-145) mmol/L Potassium (3.5-5.1) mmol/L Chloride (98-107) mmol/L Carbon Dioxide (22-30) mmol/L Anion Gap mmol/L BUN (9-20) mg/dL Creatinine (0.66-1.25) mg/dL Est GFR (CKD-EPI)AfAm (>60 ml/min/1.73 sqM) Est GFR (CKD-EPI)NonAf (>60 ml/min/1.73 sqM) Glucose (74-99) mg/dL Plasma Lactic Acid Socrates 1.9 (0.7-2.0) mmol/L Calcium (8.4-10.2) mg/dL Total Bilirubin (0.2-1.3) mg/dL AST (17-59) U/L ALT (4-49) U/L Alkaline Phosphatase (38-126) U/L C-Reactive Protein (<1.0) mg/dL Total Protein (6.3-8.2) g/dL Albumin (3.5-5.0) g/dL Amylase (30-110) U/L Lipase (23-300) U/L Urine Color Urine Appearance (Clear) Urine pH (5.0-8.0) Ur Specific [place] (1.001-1.035) Urine Protein (Negative) Urine Glucose (UA) (Negative) Urine Ketones (Negative) Urine Blood (Negative) Urine Nitrite (Negative) Urine Bilirubin (Negative) Urine Urobilinogen (<2.0) mg/dL Ur Leukocyte Esterase (Negative) Urine RBC (0-5) /hpf Urine WBC (0-5) /hpf Ur Squamous Epith Cells (0-4) /hpf Urine Bacteria (None) /hpf Hyaline Casts (0-2) /lpf Urine Mucus (None) /hpf Disposition Clinical Impression: Constipation Disposition: HOME SELF-CARE Condition: Good Instructions (If sedation given, give patient instructions): Constipation (DC) Is patient prescribed a controlled substance at d/c from ED?: No Referrals: Sumeet Mejias III, MD [Primary Care Provider] - 1-2 days
[2024-11-27 21:44] LABS: Basophils % (A) 0 %; Eosinophils % (A) 0 %; HCT 43.4 % (39.0-53.0); HGB 14.6 gm/dL (13.0-17.5); Lymphocytes # (A) 2.3 k/uL (1.0-4.8); Lymphocytes % (A) 20 %; MCH 30.4 pg (25.0-35.0); MCHC 33.6 g/dL (31.0-37.0); MCV 90.6 fL (80.0-100.0); Mean Platelet Volume 7.7; Monocytes # (A) 0.7 k/uL (0-1.0); Monocytes % (A) 6 %; Neutrophils # (A) 8.3 k/uL (1.3-7.7); Neutrophils % (A) 73 %; Platelet Count 214 k/uL (150-450); RBC 4.79 m/uL (4.30-5.90); RDW 13.3 % (11.5-15.5); WBC 11.4 k/uL (3.8-10.6)
[2024-11-27 21:49] LABS: Appearance,Urine Clear (Clear); Bacteria,Urine Rare /hpf; Bilirubin,Urine 1+ (Negative); Blood,Urine Negative (Negative); Color,Urine Dark Yellow; Glucose,Urine (UA) Negative (Negative); Hyaline Casts,Urine 9 /lpf (0-2); Ketones,Urine Trace (Negative); Leukocyte Esterase,Urine Negative (Negative); Mucus,Urine Many /hpf; Nitrite,Urine Negative (Negative); Protein,Urine 1+ (Negative); RBC,Urine 2 /hpf (0-5); Specific Gravity,Urine 1.045 (1.001-1.035); Squamous Epithelial Cell,Urine <1 /hpf (0-4); WBC,Urine 7 /hpf (0-5)
--- NOTE | 2024-11-27 21:51 | XR ---
EXAMINATION TYPE: XR KUB DATE OF EXAM: 11/27/2024 9:42 PM COMPARISON: 10/21/2024. CLINICAL INDICATION: Male, 34 years old with history of Adbominal pain; [facility] TECHNIQUE: One radiographic view of the abdomen was obtained. FINDINGS: The bowel gas pattern is nonspecific without dilated loops of small or large bowel. . Fecal material and gas are demonstrated throughout the colon and rectum. There is no evidence for organome rivera or pneumoperitoneum. No acute osseous process. No abnormal calcifications are present. IMPRESSION: Nonspecific bowel gas pattern without radiographic evidence for acute process. [facility], , 11/27/2024 9:49 PM
[2024-11-27 22:10] LABS: ALT 37 U/L (4-49); AST 53 U/L (17-59); African American GFR (CKD) >90 (>60 ml/min/1.73 sqM); Albumin 4.7 g/dL (3.5-5.0); Alkaline Phosphatase 73 U/L (38-126); Amylase 41 U/L (30-110); Anion Gap 8 mmol/L; Blood Urea Nitrogen 16 mg/dL (9-20); C Reactive Protein <0.5 mg/dL (<1.0); Calcium 9.9 mg/dL (8.4-10.2); Carbon Dioxide 27 mmol/L (22-30); Chloride 103 mmol/L (98-107); Glucose 89 mg/dL (74-99); Lipase 25 U/L (23-300); Non-African American GFR(CKD) 84 (>60 ml/min/1.73 sqM); Potassium 4.1 mmol/L (3.5-5.1); Sodium 138 mmol/L (137-145); Total Bilirubin 0.9 mg/dL (0.2-1.3); Total Protein 7.1 g/dL (6.3-8.2)
[2024-11-28] MEDS: KETOROLAC 15 MG/ML 1 ML VIAL IVP STA (02:06)
[2024-11-28 03:17] VITALS: BP 109/75; PULSE 91; RESP 16; TEMP 98
== END 2024-11-28 03:14 | disposition home or self-care (01) ==
LOC: EC 20:40
DX: K59.00 Constipation, unspecified (principal); Z88.8 Allergy status to other drugs, medicaments and biological substances; Z88.1 Allergy status to other antibiotic agents; Z88.3 Allergy status to other anti-infective agents; Z87.891 Personal history of nicotine dependence
CPT/HCPCS: 36415; 74018; 80053; 81001; 82150; 83605; 83690; 85025; 86140; 99284

== ENCOUNTER 2024-12-05 18:25 | Emergency (ER) | payer OTHER ==
--- NOTE | 2024-12-05 20:02 | ED ---
General Adult HPI - General Chief complaint: Abdominal Pain Stated complaint: N/D Time Seen by Provider: 12/05/24 19:51 Source: patient, RN notes reviewed Mode of arrival: ambulatory Limitations: no limitations - History of Present Illness Initial comments: Patient is a 34-year-old male present to the emergency department for concern for abdominal discomfort. Onset of symptoms was a couple hours ago. Patient states this started following eating chicken fingers. Patient feels that the chicken fingers may have been bad. Patient has had some nausea and did vomit. Patient also had several episodes of diarrhea. Patient states he does have history of similar episodes multiple times previously diagnosed with irritable bowel syndrome. Patient states he has had over 14 ct scans for this. Patient states he gets similar symptoms very frequently, at least once a week. - Related Data Home Medications Medication Instructions Recorded Confirmed Nicotine 21Mg/24Hr Patch [Habitrol] 1 patch TRANSDERM HS 07/18/24 07/19/24 Previous Rx's Medication Instructions Recorded ALPRAZolam [Xanax] 0.5 mg PO TID PRN #9 tablet 07/18/24 Nicotine 14Mg/24Hr Patch [Habitrol] 1 patch TRANSDERM DAILY patch 07/21/24 Omeprazole [PriLOSEC] 20 mg PO AC-BRKFST 30 Days #30 cap 07/21/24 Ziprasidone [Geodon] 20 mg PO 1700 30 Days #30 cap 07/21/24 fluvoxaMINE MALEATE 50 mg PO BID 30 Days #60 tab 07/21/24 lamoTRIgine [LaMICtal] 100 mg PO DAILY 30 Days #30 tab 07/21/24 Loperamide HCl [Imodium A-D] 2 mg PO ONCE #30 tablet 07/29/24 Simethicone [Gas-X] 125 mg PO QID #40 capsule 07/30/24 diazePAM [Valium] 2 mg PO BID PRN 3 Days #6 tab 09/03/24 Dicyclomine [Bentyl] 20 mg PO TID #30 tablet 10/03/24 Metoclopramide [Reglan] 10 mg PO Q6H PRN #20 tab 10/13/24 Docusate [Colace] 100 mg PO DAILY PRN 14 Days #14 10/21/24 capsule Allergies Allergy/AdvReac Type Severity Reaction Status Date / Time [facility] [[facility] Allergy Unknown Agitation Verified 12/05/24 18:38 cariprazine [From Vraylar] Allergy Unknown Agitation Verified 12/05/24 18:38 citalopram [From Celexa] Allergy Unknown Agitation Verified 12/05/24 18:38 divalproex sodium Allergy Unknown Agitation Verified 12/05/24 18:38 [From Depakote] paroxetine [From Paxil] Allergy Unknown Agitation Verified 12/05/24 18:38 sertraline [From Zoloft] Allergy Unknown Agitation Verified 12/05/24 18:38 metoclopramide [From Reglan] Allergy Rash/Hives Verified 12/05/24 18:38 phenobarbital AdvReac Severe Rapid Verified 12/05/24 18:38 Heart Rate zolpidem tartrate AdvReac Unknown Altered Verified 12/05/24 18:38 [From Ambien] Mental Status dicyclomine [From Bentyl] AdvReac Rapid Verified 12/05/24 18:38 Heart Rate estropipate [From Ogen 2.5] AdvReac Twitching Verified 12/05/24 18:38 of Legs haloperidol [From Haldol] AdvReac Agitation Verified 12/05/24 18:38 ketorolac [From Toradol] AdvReac Unknown Verified 12/05/24 18:38 lorazepam [From Ativan] AdvReac Hallucinati Verified 12/05/24 18:38 ons methylprednisolone AdvReac Altered Verified 12/05/24 18:38 [From Solu-Medrol] Mental Status ondansetron [From Zofran] AdvReac Unknown Verified 12/05/24 18:38 Review of Systems ROS Statement: Those systems with pertinent positive or pertinent negative responses have been documented in the HPI. ROS Other: All systems not noted in ROS Statement are negative. 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 PT IS ABLE TO MAKE DECISIONS FOR HIMSELF,IBS History of Any Multi-Drug Resistant Organisms: None Reported Past Surgical History: Tonsillectomy Additional Past Surgical History / Comment(s): wisdom teeth removed. Past Anesthesia/Blood Transfusion Reactions: No Reported Reaction Additional Past Anesthesia/Blood Transfusion Reaction / Comment(s): NEVER HAD BLOOD TRANSFUSION Past Psychological History: ADD/ADHD, Anxiety, Bipolar, Depression, PTSD Smoking Status: Former smoker Past Alcohol Use History: None Reported Past Drug Use History: None Reported - Past Family History Sister(s) Additional Family Medical History / Comment(s): He has one sister that is healthy. He also has a 4-year-old daughter that is healthy. Father Family Medical History: GERD/Reflux Additional Family Medical History / Comment(s): DAD HAS ALSO NEVER BEEN AN ALCOHOLIC-RARELY, RARELY DRINKS. Mother Family Medical History: Cancer Additional Family Medical History / Comment(s): MOM STATES SHE HAS NEVER BEEN AN ALCOHOLIC-MOM RARELY ,RARELY DRINKS. HX THYROID CANCER General Exam Limitations: no limitations General appearance: alert Head exam: Present: normocephalic Eye exam: Present: normal appearance Neck exam: Present: normal inspection Respiratory exam: Present: normal lung sounds bilaterally Cardiovascular Exam: Present: regular rate, normal rhythm GI/Abdominal exam: Present: soft, normal bowel sounds. Absent: distended, tenderness, guarding, rebound, rigid, pulsatile mass Extremities exam: Present: normal inspection Neurological exam: Present: alert Psychiatric exam: Present: normal affect, normal mood Skin exam: Present: normal color Course Vital Signs 12/05/24 12/05/24 18:39 20:24 Temperature 98.2 F Pulse Rate 101 H 67 Respiratory 20 18 Rate Blood Pressure 102/64 103/67 O2 Sat by Pulse 99 99 Oximetry Medical Decision Making - Medical Decision Making Was pt. sent in by a medical professional or institution (, PA, GENERATOR MECHANIC, urgent care, hospital, or senior care...) When possible be specific @ -No Did you speak to anyone other than the patient for history (EMS, parent, family, police, friend...)? What history was obtained from this source @ -No Did you review nursing and triage notes (agree or disagree)? Why? @ -I reviewed and agree with nursing and triage notes Were old charts reviewed (outside hosp., previous admission, EMS record, old EKG, old radiological studies, urgent care reports/EKG's, senior care records)? Report findings @ -Multiple previous visits reviewed including previous CT scans Differential Diagnosis (chest pain, altered mental status, abdominal pain women, abdominal pain men, vaginal bleeding, weakness, fever, dyspnea, syncope, headache, dizziness, GI bleed, back pain, seizure, CVA, palpatations, mental health, musculoskeletal)? @ -Differential Abdominal Pain Men: Appendicitis, cholecystitis, diverticulosis, ischemic bowel, pancreatitis, hepatitis, UTI, gastroenteritis, AAA, incarcerated hernia, bowel obstruction, constipation, inflammatory bowel, hepatitis, peptic ulcer disease, splenic infarction, perforated viscus, testicular torsion, this is not meant to be an all-inclusive list EKG interpreted by me (3pts min.). @ -As above X-rays interpreted by me (1pt min.). @ -Abdominal x-ray does not reveal acute abnormality CT interpreted by me (1pt min.). @ -None done U/S interpreted by me (1pt. min.). @ -None done What testing was considered but not performed or refused? (CT, X-rays, U/S, labs)? Why? @ -Considered further imaging however patient states has had it multiple times with similar symptoms and does not want it because he does not feel is necessary. What meds were considered but not given or refused? Why? @ -None Did you discuss the management of the patient with other professionals (professionals i.e. , PA, GENERATOR MECHANIC, lab, RT, psych nurse, director of social media marketing, category analyst, teacher, humane officer, cyanide case hardener)? Give summary @ -No Was smoking cessation discussed for >3mins.? @ -No Was critical care preformed (if so, how long)? @ -No Were there social determinants of health that impacted care today? How? (Homelessness, low income, unemployed, alcoholism, drug addiction, transportation, low edu. Level, literacy, decrease access to med. care, shelter, rehab)? @ -No Was there de-escalation of care discussed even if they declined (Discuss DNR or withdrawal of care, Hospice)? DNR status @ -No What co-morbidities impacted this encounter? (DM, HTN, Smoking, COPD, CAD, Cancer, CVA, ARF, Chemo, Hep., AIDS, mental health diagnosis, sleep apnea, morbid obesity)? @ -Chronic abdominal pain associate with irritable bowel syndrome Was patient admitted / discharged? Hospital course, mention meds given and route, prescriptions, significant lab abnormalities, going to OR and other pertinent info. @ -Patient presents with acute on chronic abdominal pain. Patient feels much better following medication. Patient requesting discharge home. Patient updated. Undiagnosed new problem with uncertain prognosis? @ -No Drug Therapy requiring intensive monitoring for toxicity (Heparin, Nitro, Insulin, Cardizem)? @ -No Were any procedures done? @ -No Diagnosis/symptom? @ -Abdominal pain Acute, or Chronic, or Acute on Chronic? @ -Acute on chronic Uncomplicated (without systemic symptoms) or Complicated (systemic symptoms)? @ -Default Side effects of treatment? @ -No Exacerbation, Progression, or Severe Exacerbation? @ -No Poses a threat to life or bodily function? How? (Chest pain, USA, [place], pneumonia, PE, COPD, DKA, ARF, appy, cholecystitis, CVA, Diverticulitis, Homicidal, Suicidal, threat to staff... and all critical care pts) @ -No - Lab Data Result diagrams: 12/05/24 20:40 12/05/24 20:12 Lab Results 12/05/24 12/05/24 12/05/24 Range/Units 20:12 20:40 20:40 WBC 7.3 (3.8-10.6) k/uL RBC 4.85 (4.30-5.90) m/uL Hgb 14.5 (13.0-17.5) gm/dL Hct 44.2 (39.0-53.0) % MCV 91.2 (80.0-100.0) fL MCH 29.9 (25.0-35.0) pg MCHC 32.8 (31.0-37.0) g/dL RDW 13.4 (11.5-15.5) % Plt Count 166 (150-450) k/uL MPV 8.0 Neutrophils % 86 % Lymphocytes % 9 % Monocytes % 3 % Eosinophils % 1 % Basophils % 0 % Neutrophils # 6.3 (1.3-7.7) k/uL Lymphocytes # 0.7 L (1.0-4.8) k/uL Monocytes # 0.2 (0-1.0) k/uL Eosinophils # 0.1 (0-0.7) k/uL Basophils # 0.0 (0-0.2) k/uL PT 12.0 (10.0-12.5) sec INR 1.1 (<1.2) APTT 25.0 (22.0-30.0) sec Sodium 136 L (137-145) mmol/L Potassium 4.8 (3.5-5.1) mmol/L Chloride 100 (98-107) mmol/L Carbon Dioxide 26 (22-30) mmol/L Anion Gap 10 mmol/L BUN 15 (9-20) mg/dL Creatinine 1.08 (0.66-1.25) mg/dL Est GFR (CKD-EPI)AfAm >90 (>60 ml/min/1.73 sqM) Est GFR (CKD-EPI)NonAf 88 (>60 ml/min/1.73 sqM) Glucose 116 H (74-99) mg/dL Calcium 9.7 (8.4-10.2) mg/dL Total Bilirubin 1.3 (0.2-1.3) mg/dL AST 30 (17-59) U/L ALT 15 (4-49) U/L Alkaline Phosphatase 67 (38-126) U/L Total Protein 7.0 (6.3-8.2) g/dL Albumin 4.7 (3.5-5.0) g/dL Amylase 38 (30-110) U/L Lipase 19 L (23-300) U/L Disposition Clinical Impression: Abdominal pain Disposition: HOME SELF-CARE Condition: Stable Instructions (If sedation given, give patient instructions): Abdominal Pain (ED) Additional Instructions: Please do follow-up with your primary care physician this week. Return for increased pain, fever, vomiting, worsening symptoms or any other concerns. Is patient prescribed a controlled substance at d/c from ED?: No Referrals: Sumeet Mejias III, MD [Primary Care Provider] - 1-2 days Time of Disposition: 21:16
[2024-12-05 20:24] VITALS: RESP 18
[2024-12-05] MEDS: FAMOTIDINE 20 MG/2 ML VIAL IV STA (20:24)
[2024-12-05] MEDS: LACTATED RINGERS 1,000 ML IV ONE (20:25)
[2024-12-05] MEDS: HYDROmorphone 1 MG/ML 1 ML SYRINGE IVP STA (20:25)
[2024-12-05 20:39] LABS: ALT 15 U/L (4-49); African American GFR (CKD) >90 (>60 ml/min/1.73 sqM); Amylase 38 U/L (30-110); Anion Gap 10 mmol/L; Blood Urea Nitrogen 15 mg/dL (9-20); Calcium 9.7 mg/dL (8.4-10.2); Carbon Dioxide 26 mmol/L (22-30); Chloride 100 mmol/L (98-107); Glucose 116 mg/dL (74-99); Lipase 19 U/L (23-300); Non-African American GFR(CKD) 88 (>60 ml/min/1.73 sqM); Sodium 136 mmol/L (137-145)
[2024-12-05 20:49] LABS: Potassium 4.8 mmol/L (3.5-5.1)
[2024-12-05 20:50] LABS: AST 30 U/L (17-59); Albumin 4.7 g/dL (3.5-5.0); Alkaline Phosphatase 67 U/L (38-126); Total Bilirubin 1.3 mg/dL (0.2-1.3)
[2024-12-05 20:55] LABS: Basophils % (A) 0 %; Eosinophils # (A) 0.1 k/uL (0-0.7); Eosinophils % (A) 1 %; HCT 44.2 % (39.0-53.0); HGB 14.5 gm/dL (13.0-17.5); Lymphocytes # (A) 0.7 k/uL (1.0-4.8); Lymphocytes % (A) 9 %; MCH 29.9 pg (25.0-35.0); MCHC 32.8 g/dL (31.0-37.0); MCV 91.2 fL (80.0-100.0); Monocytes # (A) 0.2 k/uL (0-1.0); Monocytes % (A) 3 %; Neutrophils # (A) 6.3 k/uL (1.3-7.7); Neutrophils % (A) 86 %; Platelet Count 166 k/uL (150-450); RBC 4.85 m/uL (4.30-5.90); RDW 13.4 % (11.5-15.5); WBC 7.3 k/uL (3.8-10.6)
[2024-12-05 21:00] LABS: INR 1.1 (<1.2)
--- NOTE | 2024-12-05 21:16 | XR ---
EXAMINATION TYPE: XR KUB DATE OF EXAM: 12/05/2024 8:40 PM COMPARISON: 11/27/2024 CLINICAL INDICATION: Male, 34 years old with history of abdominal pain; [facility] TECHNIQUE: One radiographic view of the abdomen was obtained. FINDINGS: The bowel gas pattern is nonspecific without dilated loops of small or large bowel. . Fecal material and gas are demonstrated throughout the colon and rectum. There is no evidence for organome rivera or pneumoperitoneum. No acute osseous process. No abnormal calcifications are present. IMPRESSION: Nonspecific bowel gas pattern without radiographic evidence for acute process. [facility], , 12/05/2024 9:13 PM
[2024-12-05 21:29] VITALS: BP 106/66; PULSE 81; TEMP 98.1
== END 2024-12-05 21:29 | disposition home or self-care (01) ==
LOC: EC 18:25
DX: R10.9 Unspecified abdominal pain (principal); Z87.891 Personal history of nicotine dependence; Z88.8 Allergy status to other drugs, medicaments and biological substances
CPT/HCPCS: 36415; 80053; 82150; 83690; 85025; 85610; 85730; 74018; 99284; 96374; 96375; 96361; J3490; J1171

== ENCOUNTER 2024-12-07 09:16 | Emergency (ER) | payer OTHER ==
--- NOTE | 2024-12-07 10:06 | ED ---
General Adult HPI - General Chief complaint: Abdominal Pain Stated complaint: abd pain Time Seen by Provider: 12/07/24 09:26 Source: patient, old records reviewed Mode of arrival: ambulatory Limitations: no limitations - History of Present Illness Initial comments: Patient is a 34-year-old male returning to the emergency department for abdominal pain. Patient has chronic abdominal pain with similar symptoms several times per week. Patient states symptoms have worsened the last day or 2. Patient has nausea vomiting and diarrhea. Patient has history of similar symptoms previously associated with irritable bowel syndrome. No fever. Patient states he cannot have Bentyl or Benadryl or any nausea medication. - Related Data Home Medications Medication Instructions Recorded Confirmed Nicotine 21Mg/24Hr Patch [Habitrol] 1 patch TRANSDERM HS 07/18/24 07/19/24 Previous Rx's Medication Instructions Recorded ALPRAZolam [Xanax] 0.5 mg PO TID PRN #9 tablet 07/18/24 Nicotine 14Mg/24Hr Patch [Habitrol] 1 patch TRANSDERM DAILY patch 07/21/24 Omeprazole [PriLOSEC] 20 mg PO AC-BRKFST 30 Days #30 cap 07/21/24 Ziprasidone [Geodon] 20 mg PO 1700 30 Days #30 cap 07/21/24 fluvoxaMINE MALEATE 50 mg PO BID 30 Days #60 tab 07/21/24 lamoTRIgine [LaMICtal] 100 mg PO DAILY 30 Days #30 tab 07/21/24 Loperamide HCl [Imodium A-D] 2 mg PO ONCE #30 tablet 07/29/24 Simethicone [Gas-X] 125 mg PO QID #40 capsule 07/30/24 diazePAM [Valium] 2 mg PO BID PRN 3 Days #6 tab 09/03/24 Dicyclomine [Bentyl] 20 mg PO TID #30 tablet 10/03/24 Metoclopramide [Reglan] 10 mg PO Q6H PRN #20 tab 10/13/24 Docusate [Colace] 100 mg PO DAILY PRN 14 Days #14 10/21/24 capsule Allergies Allergy/AdvReac Type Severity Reaction Status Date / Time aripiprazole [From Abilify] Allergy Unknown Agitation Verified 12/07/24 09:21 cariprazine [From Vraylar] Allergy Unknown Agitation Verified 12/07/24 09:21 citalopram [From Celexa] Allergy Unknown Agitation Verified 12/07/24 09:21 divalproex sodium Allergy Unknown Agitation Verified 12/07/24 09:21 [From Depakote] paroxetine [From Paxil] Allergy Unknown Agitation Verified 12/07/24 09:21 sertraline [From Zoloft] Allergy Unknown Agitation Verified 12/07/24 09:21 metoclopramide [From Reglan] Allergy Rash/Hives Verified 12/07/24 09:21 phenobarbital AdvReac Severe Rapid Verified 12/07/24 09:21 Heart Rate zolpidem tartrate AdvReac Unknown Altered Verified 12/07/24 09:21 [From Ambien] Mental Status dicyclomine [From Bentyl] AdvReac Rapid Verified 12/07/24 09:21 Heart Rate estropipate [From Ogen 2.5] AdvReac Twitching Verified 12/07/24 09:21 of Legs haloperidol [From Haldol] AdvReac Agitation Verified 12/07/24 09:21 ketorolac [From Toradol] AdvReac Unknown Verified 12/07/24 09:21 lorazepam [From Ativan] AdvReac Hallucinati Verified 12/07/24 09:21 ons methylprednisolone AdvReac Altered Verified 12/07/24 09:21 [From Solu-Medrol] Mental Status ondansetron [From Zofran] AdvReac Unknown Verified 12/07/24 09:21 Review of Systems ROS Statement: Those systems with pertinent positive or pertinent negative responses have been documented in the HPI. ROS Other: All systems not noted in ROS Statement are negative. 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 PT IS ABLE TO MAKE DECISIONS FOR HIMSELF,IBS History of Any Multi-Drug Resistant Organisms: None Reported Past Surgical History: Tonsillectomy Additional Past Surgical History / Comment(s): wisdom teeth removed. Past Anesthesia/Blood Transfusion Reactions: No Reported Reaction Additional Past Anesthesia/Blood Transfusion Reaction / Comment(s): NEVER HAD BLOOD TRANSFUSION Past Psychological History: ADD/ADHD, Anxiety, Bipolar, Depression, PTSD Smoking Status: Former smoker Past Alcohol Use History: None Reported Past Drug Use History: None Reported - Past Family History Sister(s) Additional Family Medical History / Comment(s): He has one sister that is healthy. He also has a 4-year-old daughter that is healthy. Father Family Medical History: GERD/Reflux Additional Family Medical History / Comment(s): DAD HAS ALSO NEVER BEEN AN ALCOH OLIC-RARELY, RARELY DRINKS. Mother Family Medical History: Cancer Additional Family Medical History / Comment(s): MOM STATES SHE HAS NEVER BEEN AN ALCOHOLIC-MOM RARELY ,RARELY DRINKS. HX THYROID CANCER General Exam Limitations: no limitations General appearance: alert, in no apparent distress Head exam: Present: normocephalic Eye exam: Present: normal appearance Neck exam: Present: normal inspection Respiratory exam: Present: normal lung sounds bilaterally Cardiovascular Exam: Present: regular rate, normal rhythm GI/Abdominal exam: Present: soft. Absent: tenderness Extremities exam: Present: normal inspection Neurological exam: Present: alert Psychiatric exam: Present: normal affect, normal mood Skin exam: Present: normal color Course Vital Signs 12/07/24 12/07/24 09:19 10:28 Temperature 98.5 F Pulse Rate 109 H 80 Respiratory 18 20 Rate Blood Pressure 102/64 97/69 O2 Sat by Pulse 98 98 Oximetry Medical Decision Making - Medical Decision Making Was pt. sent in by a medical professional or institution (, PA, SHAREPOINT DEVELOPER, urgent care, hospital, or [facility]...) When possible be specific @ -No Did you speak to anyone other than the patient for history (EMS, parent, family, police, friend...)? What history was obtained from this source @ -No Did you review nursing and triage notes (agree or disagree)? Why? @ -I reviewed and agree with nursing and triage notes Were old charts reviewed (outside hosp., previous admission, EMS record, old EKG, old radiological studies, urgent care reports/EKG's, [facility] records)? Report findings @ -Previous notes reviewed and imaging reports. Patient has had 14 visits now this year for abdominal pain. Differential Diagnosis (chest pain, altered mental status, abdominal pain women, abdominal pain men, vaginal bleeding, weakness, fever, dyspnea, syncope, headache, dizziness, GI bleed, back pain, seizure, CVA, palpatations, mental health, musculoskeletal)? @ -Differential Abdominal Pain Men: Appendicitis, cholecystitis, diverticulosis, ischemic bowel, pancreatitis, hepatitis, UTI, gastroenteritis, AAA, incarcerated hernia, bowel obstruction, constipation, inflammatory bowel, hepatitis, peptic ulcer disease, splenic infarction, perforated viscus, testicular torsion, this is not meant to be an all-inclusive list EKG interpreted by me (3pts min.). @ -As above X-rays interpreted by me (1pt min.). @ -None done CT interpreted by me (1pt min.). @ -None done U/S interpreted by me (1pt. min.). @ -None done What testing was considered but not performed or refused? (CT, X-rays, U/S, labs)? Why? @ -None What meds were considered but not given or refused? Why? @ -None Did you discuss the management of the patient with other professionals (professionals i.e. , PA, SHAREPOINT DEVELOPER, lab, RT, psych nurse, certified social workers in health care, safety investigator/cause analyst, teacher, medical information officer, director case management)? Give summary @ -No Was smoking cessation discussed for >3mins.? @ -No Was critical care preformed (if so, how long)? @ -No Were there social determinants of health that impacted care today? How? (Homelessness, low income, unemployed, alcoholism, drug addiction, transp ortation, low edu. Level, literacy, decrease access to med. care, skilled nursing, rehab)? @ -No Was there de-escalation of care discussed even if they declined (Discuss DNR or withdrawal of care, Hospice)? DNR status @ -No What co-morbidities impacted this encounter? (DM, HTN, Smoking, COPD, CAD, Cancer, CVA, ARF, Chemo, Hep., AIDS, mental health diagnosis, sleep apnea, morbid obesity)? @ -Chronic abdominal pain Was patient admitted / discharged? Hospital course, mention meds given and route, prescriptions, significant lab abnormalities, going to OR and other pertinent info. @ -Patient presents with acute on chronic abdominal pain. Patient reevaluated and appears comfortable sitting in bed. Patient updated on results and need for follow-up. Undiagnosed new problem with uncertain prognosis? @ -No Drug Therapy requiring intensive monitoring for toxicity (Heparin, Nitro, Insulin, Cardizem)? @ -No Were any procedures done? @ -No Diagnosis/symptom? @ -Abdominal pain Acute, or Chronic, or Acute on Chronic? @ -Acute on chronic Uncomplicated (without systemic symptoms) or Complicated (systemic symptoms)? @ -Default Side effects of treatment? @ -No Exacerbation, Progression, or Severe Exacerbation? @ -No Poses a threat to life or bodily function? How? (Chest pain, USA, NC, pneumonia, PE, COPD, DKA, ARF, appy, cholecystitis, CVA, Diverticulitis, Homicidal, Suicidal, threat to staff... and all critical care pts) @ -No - Lab Data Result diagrams: 12/07/24 10:18 12/07/24 10:18 Lab Results 12/07/24 12/07/24 Range/Units 10:18 10:18 WBC 4.5 (3.8-10.6) k/uL RBC 4.51 (4.30-5.90) m/uL Hgb 13.6 (13.0-17.5) gm/dL Hct 42.0 (39.0-53.0) % MCV 93.0 (80.0-100.0) fL MCH 30.2 (25.0-35.0) pg MCHC 32.5 (31.0-37.0) g/dL RDW 14.1 (11.5-15.5) % Plt Count 155 (150-450) k/uL MPV 8.4 Neutrophils % 67 % Lymphocytes % 22 % Monocytes % 7 % Eosinophils % 2 % Basophils % 0 % Neutrophils # 3.0 (1.3-7.7) k/uL Lymphocytes # 1.0 (1.0-4.8) k/uL Monocytes # 0.3 (0-1.0) k/uL Eosinophils # 0.1 (0-0.7) k/uL Basophils # 0.0 (0-0.2) k/uL Sodium 138 (137-145) mmol/L Potassium 4.7 (3.5-5.1) mmol/L Chloride 104 (98-107) mmol/L Carbon Dioxide 27 (22-30) mmol/L Anion Gap 7 mmol/L BUN 16 (9-20) mg/dL Creatinine 0.65 L (0.66-1.25) mg/dL Est GFR (CKD-EPI)AfAm >90 (>60 ml/min/1.73 sqM) Est GFR (CKD-EPI)NonAf >90 (>60 ml/min/1.73 sqM) Glucose 111 H (74-99) mg/dL Calcium 9.2 (8.4-10.2) mg/dL Total Bilirubin 1.0 (0.2-1.3) mg/dL AST 25 (17-59) U/L ALT 14 (4-49) U/L Alkaline Phosphatase 57 (38-126) U/L Total Protein 6.6 (6.3-8.2) g/dL Albumin 4.2 (3.5-5.0) g/dL Amylase 33 (30-110) U/L Lipase 21 L (23-300) U/L Disposition Clinical Impression: Abdominal pain, Chronic pain Disposition: HOME SELF-CARE Condition: Stable Instructions (If sedation given, give patient instructions): Abdominal Pain (ED) Additional Instructions: Please do follow-up with your primary care physician and surgical services manager in the next couple of days for recheck. Return for fever, uncontrolled vomiting, worsening or changing symptoms or other concerns. Is patient prescribed a controlled substance at d/c from ED?: No Referrals: Sumeet Mejias III, MD [Primary Care Provider] - 1-2 days Time of Disposition: 11:48
[2024-12-07] MEDS: SODIUM CHLORIDE 0.9% 1,000 ML IV ONE (10:25)
[2024-12-07] MEDS: FAMOTIDINE 20 MG/2 ML VIAL IV STA (10:25)
[2024-12-07 10:39] LABS: Basophils % (A) 0 %; Eosinophils # (A) 0.1 k/uL (0-0.7); Eosinophils % (A) 2 %; HGB 13.6 gm/dL (13.0-17.5); Lymphocytes % (A) 22 %; MCH 30.2 pg (25.0-35.0); MCHC 32.5 g/dL (31.0-37.0); Mean Platelet Volume 8.4; Monocytes # (A) 0.3 k/uL (0-1.0); Monocytes % (A) 7 %; Neutrophils % (A) 67 %; Platelet Count 155 k/uL (150-450); RBC 4.51 m/uL (4.30-5.90); RDW 14.1 % (11.5-15.5); WBC 4.5 k/uL (3.8-10.6)
[2024-12-07 10:52] LABS: ALT 14 U/L (4-49); African American GFR (CKD) >90 (>60 ml/min/1.73 sqM); Amylase 33 U/L (30-110); Anion Gap 7 mmol/L; Blood Urea Nitrogen 16 mg/dL (9-20); Calcium 9.2 mg/dL (8.4-10.2); Carbon Dioxide 27 mmol/L (22-30); Chloride 104 mmol/L (98-107); Glucose 111 mg/dL (74-99); Lipase 21 U/L (23-300); Non-African American GFR(CKD) >90 (>60 ml/min/1.73 sqM); Sodium 138 mmol/L (137-145)
[2024-12-07 11:06] LABS: AST 25 U/L (17-59); Albumin 4.2 g/dL (3.5-5.0); Alkaline Phosphatase 57 U/L (38-126); Potassium 4.7 mmol/L (3.5-5.1); Total Protein 6.6 g/dL (6.3-8.2)
--- NOTE | 2024-12-07 11:24 | XR ---
EXAMINATION TYPE: XR KUB DATE OF EXAM: 12/07/2024 10:59 AM COMPARISON: 12/05/2024 CLINICAL INDICATION: Male, 34 years old with history of abdominal pain; TECHNIQUE: One radiographic view of the abdomen was obtained. FINDINGS: There is a moderate stool burden, otherwise, the bowel gas pattern is nonspecific without d ilated loops of small or large bowel. . Fecal material and gas are demonstrated throughout the colon and rectum. There is no evidence for organomegaly or pneumoperitoneum. No acute osseous process. No abnormal calcifications are present. IMPRESSION: Nonspecific bowel gas pattern without radiographic evidence for acute process. [facility], , 12/07/2024 11:22 AM
[2024-12-07] MEDS: ACETAMINOPHEN IV (For NPO) 1,000 MG in EMPTY BAG 1 BAG IVPB STA (11:54)
[2024-12-07 12:54] VITALS: BP 94/62; PULSE 60; RESP 18; TEMP 98.6
== END 2024-12-07 12:54 | disposition home or self-care (01) ==
LOC: EC 09:16
DX: G89.29 Other chronic pain (principal); R10.9 Unspecified abdominal pain; Z87.891 Personal history of nicotine dependence; Z88.8 Allergy status to other drugs, medicaments and biological substances
CPT/HCPCS: 36415; 80053; 82150; 83690; 85025; 74018; 99284; 96374; 96375; J3490; J0131

== ENCOUNTER 2024-12-09 17:22 | Emergency (ER) | payer OTHER ==
--- NOTE | 2024-12-09 18:33 | ED ---
Abdominal Pain HPI - General Chief Complaint: Abdominal Pain Stated Complaint: abd pain Time Seen by Provider: 12/09/24 18:31 Source: patient, RN notes reviewed Mode of arrival: ambulatory Limitations: no limitations - History of Present Illness Initial Comments: 34-year-old male with history of IBS presenting for acute on chronic abdominal pain x 1 day with associated diarrhea. States this feels similar to previous IBS flareups. Patient has been seen multiple times over the past week for similar symptoms. States he has upcoming appointment with PCP this week and follow-up with a new GI specialist Dr. Caba. - Related Data Home Medications Medication Instructions Recorded Confirmed Nicotine 21Mg/24Hr Patch [Habitrol] 1 patch TRANSDERM HS 07/18/24 07/19/24 Previous Rx's Medication Instructions Recorded ALPRAZolam [Xanax] 0.5 mg PO TID PRN #9 tablet 07/18/24 Nicotine 14Mg/24Hr Patch [Habitrol] 1 patch TRANSDERM DAILY patch 07/21/24 Omeprazole [PriLOSEC] 20 mg PO AC-BRKFST 30 Days #30 cap 07/21/24 Ziprasidone [Geodon] 20 mg PO 1700 30 Days #30 cap 07/21/24 fluvoxaMINE MALEATE 50 mg PO BID 30 Days #60 tab 07/21/24 lamoTRIgine [LaMICtal] 100 mg PO DAILY 30 Days #30 tab 07/21/24 Loperamide HCl [Imodium A-D] 2 mg PO ONCE #30 tablet 07/29/24 Simethicone [Gas-X] 125 mg PO QID #40 capsule 07/30/24 diazePAM [Valium] 2 mg PO BID PRN 3 Days #6 tab 09/03/24 Dicyclomine [Bentyl] 20 mg PO TID #30 tablet 10/03/24 Metoclopramide [Reglan] 10 mg PO Q6H PRN #20 tab 10/13/24 Docusate [Colace] 100 mg PO DAILY PRN 14 Days #14 10/21/24 capsule Allergies Allergy/AdvReac Type Severity Reaction Status Date / Time aripiprazole [From Abilify] Allergy Unknown Agitation Verified 12/09/24 18:01 cariprazine [From Vraylar] Allergy Unknown Agitation Verified 12/09/24 18:01 citalopram [From Celexa] Allergy Unknown Agitation Verified 12/09/24 18:01 divalproex sodium Allergy Unknown Agitation Verified 12/09/24 18:01 [From Depakote] paroxetine [From Paxil] Allergy Unknown Agitation Verified 12/09/24 18:01 sertraline [From Zoloft] Allergy Unknown Agitation Verified 12/09/24 18:01 metoclopramide [From Reglan] Allergy Rash/Hives Verified 12/09/24 18:01 phenobarbital AdvReac Severe Rapid Verified 12/09/24 18:01 Heart Rate zolpidem tartrate AdvReac Unknown Altered Verified 12/09/24 18:01 [From Ambien] Mental Status dicyclomine [From Bentyl] AdvReac Rapid Verified 12/09/24 18:01 Heart Rate estropipate [From Ogen 2.5] AdvReac Twitching Verified 12/09/24 18:01 of Legs haloperidol [From Haldol] AdvReac Agitation Verified 12/09/24 18:01 ketorolac [From Toradol] AdvReac Unknown Verified 12/09/24 18:01 lorazepam [From Ativan] AdvReac Hallucinati Verified 12/09/24 18:01 ons methylprednisolone AdvReac Altered Verified 12/09/24 18:01 [From Solu-Medrol] Mental Status ondansetron [From Zofran] AdvReac Unknown Verified 12/09/24 18:01 Review of Systems ROS Statement: Those systems with pertinent positive or pertinent negative responses have been documented in the HPI. ROS Other: All systems not noted in ROS Statement are negative. 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 PT IS ABLE TO MAKE DECISIONS FOR HIMSELF,IBS History of Any Multi-Drug Resistant Organisms: None Reported Past Surgical History: Tonsillectomy Additional Past Surgical History / Comment(s): wisdom teeth removed. Past Anesthesia/Blood Transfusion Reactions: No Reported Reaction Additional Past Anesthesia/Blood Transfusion Reaction / Comment(s): NEVER HAD BLOOD TRANSFUSION Past Psychological History: ADD/ADHD, Anxiety, Bipolar, Depression, PTSD Smoking Status: Former smoker Past Alcohol Use History: None Reported Past Drug Use History: None Reported - Past Family History Sister(s) Additional Family Medical History / Comment(s): He has one sister that is healthy. He also has a 4-year-old daughter that is healthy. Father Family Medical History: GERD/Reflux Additional Family Medical History / Comment(s): DAD HAS ALSO NEVER BEEN AN ALCOHOLIC-RARELY, RARELY DRINKS. Mother Family Medical History: Cancer Additional Family Medical History / Comment(s): MOM STATES SHE HAS NEVER BEEN AN ALCOHOLIC-MOM RARELY ,RARELY DRINKS. HX THYROID CANCER General Exam Limitations: no limitations General appearance: alert, in no apparent distress Head exam: Present: atraumatic, normocephalic, normal inspection GI/Abdominal exam: Present: soft, normal bowel sounds. Absent: distended, tenderness, guarding, rebound, rigid Back exam: Absent: CVA tenderness (R), CVA tenderness (L) Neurological exam: Present: alert, oriented X3 Psychiatric exam: Present: normal affect, normal mood Skin exam: Present: warm, dry, intact, normal color. Absent: rash Course Vital Signs 12/09/24 12/09/24 17:59 20:09 Temperature 99.5 F 98.4 F Pulse Rate 112 H 78 Respiratory 19 18 Rate Blood Pressure 141/96 121/71 O2 Sat by Pulse 95 97 Oximetry Medical Decision Making - Medical Decision Making Was pt. sent in by a medical professional or institution (LINO Patel, COGNOS ANALYST, urgent care, hospital, or custodial...) When possible be specific @ -No Did you speak to anyone other than the patient for history (EMS, parent, family, police, friend...)? What history was obtained from this source @ -No Did you review nursing and triage notes (agree or disagree)? Why? @ -I reviewed and agree with nursing and triage notes Were old charts reviewed (outside hosp., previous admission, EMS record, old EKG, old radiological studies, urgent care reports/EKG's, custodial records)? Report findings @ -No old charts were reviewed Differential Diagnosis (chest pain, altered mental status, abdominal pain women, abdominal pain men, vaginal bleeding, weakness, fever, dyspnea, syncope, headache, dizziness, GI bleed, back pain, seizure, CVA, palpatations, mental health, musculoskeletal)? @ -Differential Abdominal Pain Men: Appendicitis, cholecystitis, diverticulosis, ischemic bowel, pancreatitis, hepatitis, UTI, gastroenteritis, AAA, incarcerated hernia, bowel obstruction, constipation, inflammatory bowel, hepatitis, peptic ulcer disease, splenic inf arction, perforated viscus, testicular torsion, this is not meant to be an all- inclusive list EKG interpreted by me (3pts min.). @ -None X-rays interpreted by me (1pt min.). @ -None done CT interpreted by me (1pt min.). @ -None done U/S interpreted by me (1pt. min.). @ -None done What testing was considered but not performed or refused? (CT, X-rays, U/S, labs)? Why? @ -None What meds were considered but not given or refused? Why? @ -None Did you discuss the management of the patient with other professionals (professionals i.e. , PA, COGNOS ANALYST, lab, RT, psych nurse, sexual assault social worker, public housing interviewer, teacher, sales promotion officer, transplant case manager)? Give summary @ -No Was smoking cessation discussed for >3mins.? @ -No Was critical care preformed (if so, how long)? @ -No Were there social determinants of health that impacted care today? How? (Homelessness, low income, unemployed, alcoholism, drug addiction, transp ortation, low edu. Level, literacy, decrease access to med. care, [facility], rehab)? @ -No Was there de-escalation of care discussed even if they declined (Discuss DNR or withdrawal of care, Hospice)? DNR status @ -No What co-morbidities impacted this encounter? (DM, HTN, Smoking, COPD, CAD, Cancer, CVA, ARF, Chemo, Hep., AIDS, mental health diagnosis, sleep apnea, morbid obesity)? @ -None Was patient admitted / discharged? Hospital course, mention meds given and route, prescriptions, significant lab abnormalities, going to OR and other pertinent info. @ -Discharge. 34-year-old male presenting for acute on chronic abdominal pain. Reports this feels similar to previous flareups of his IBS. Patient is provided with IV fluids and analgesics. Lab work unremarkable. Upon reevaluation, patient reports significant improvement of symptoms and feels stable for discharge. Appropriate return precautions and follow-up care discussed. Patient is agreeable to plan. Case was discussed with my ED attending Dr. May. Undiagnosed new problem with uncertain prognosis? @ -No Drug Therapy requiring intensive monitoring for toxicity (Heparin, Nitro, Insulin, Cardizem)? @ -No Were any procedures done? @ -No Diagnosis/symptom? @ -Acute on chronic abdominal pain Acute, or Chronic, or Acute on Chronic? @ -Acute Uncomplicated (without systemic symptoms) or Complicated (systemic symptoms)? @ -Complicated Side effects of treatment? @ -No Exacerbation, Progression, or Severe Exacerbation? @ -No Poses a threat to life or bodily function? How? (Chest pain, USA, OR, pneumonia, PE, COPD, DKA, ARF, appy, cholecystitis, CVA, Diverticulitis, Homicidal, Suicidal, threat to staff... and all critical care pts) @ -No - Lab Data Result diagrams: 12/09/24 18:55 12/09/24 18:55 Lab Results 12/09/24 12/09/24 Range/Units 18:55 18:55 WBC 6.4 (3.8-10.6) k/uL RBC 4.93 (4.30-5.90) m/uL Hgb 14.7 (13.0-17.5) gm/dL Hct 45.2 (39.0-53.0) % MCV 91.6 (80.0-100.0) fL MCH 29.9 (25.0-35.0) pg MCHC 32.7 (31.0-37.0) g/dL RDW 13.9 (11.5-15.5) % Plt Count 211 (150-450) k/uL MPV 8.6 Neutrophils % 81 % Lymphocytes % 13 % Monocytes % 5 % Eosinophils % 0 % Basophils % 0 % Neutrophils # 5.1 (1.3-7.7) k/uL Lymphocytes # 0.8 L (1.0-4.8) k/uL Monocytes # 0.3 (0-1.0) k/uL Eosinophils # 0.0 (0-0.7) k/uL Basophils # 0.0 (0-0.2) k/uL Sodium 141 (137-145) mmol/L Potassium 3.7 (3.5-5.1) mmol/L Chloride 103 (98-107) mmol/L Carbon Dioxide 27 (22-30) mmol/L Anion Gap 11 mmol/L BUN 9 (9-20) mg/dL Creatinine 0.74 (0.66-1.25) mg/dL Est GFR (CKD-EPI)AfAm >90 (>60 ml/min/1.73 sqM) Est GFR (CKD-EPI)NonAf >90 (>60 ml/min/1.73 sqM) Glucose 115 H (74-99) mg/dL Calcium 10.3 H (8.4-10.2) mg/dL Total Bilirubin 0.7 (0.2-1.3) mg/dL AST 26 (17-59) U/L ALT 19 (4-49) U/L Alkaline Phosphatase 114 (38-126) U/L Total Protein 7.1 (6.3-8.2) g/dL Albumin 4.7 (3.5-5.0) g/dL Disposition Clinical Impression: Abdominal pain Disposition: HOME SELF-CARE Condition: Stable Instructions (If sedation given, give patient instructions): Abdominal Pain (ED) Additional Instructions: Follow-up for upcoming PCP and GI specialist appointment. Please return to the Emergency Department if symptoms worsen or any other concerns. Is patient prescribed a controlled substance at d/c from ED?: No Referrals: Sumeet Mejias III, MD [Primary Care Provider] - 1-2 days Time of Disposition: 20:14
[2024-12-09] MEDS: HYDROmorphone 1 MG/ML 1 ML SYRINGE IVP STA (18:58)
[2024-12-09] MEDS: ACETAMINOPHEN TAB 500 MG TAB PO STA (18:58)
[2024-12-09] MEDS: FAMOTIDINE 20 MG/2 ML VIAL IV STA (18:59)
[2024-12-09 19:21] LABS: Basophils % (A) 0 %; Eosinophils % (A) 0 %; HCT 45.2 % (39.0-53.0); HGB 14.7 gm/dL (13.0-17.5); Lymphocytes # (A) 0.8 k/uL (1.0-4.8); Lymphocytes % (A) 13 %; MCH 29.9 pg (25.0-35.0); MCHC 32.7 g/dL (31.0-37.0); MCV 91.6 fL (80.0-100.0); Mean Platelet Volume 8.6; Monocytes # (A) 0.3 k/uL (0-1.0); Monocytes % (A) 5 %; Neutrophils # (A) 5.1 k/uL (1.3-7.7); Neutrophils % (A) 81 %; Platelet Count 211 k/uL (150-450); RBC 4.93 m/uL (4.30-5.90); RDW 13.9 % (11.5-15.5); WBC 6.4 k/uL (3.8-10.6)
[2024-12-09 19:29] LABS: ALT 19 U/L (4-49); AST 26 U/L (17-59); African American GFR (CKD) >90 (>60 ml/min/1.73 sqM); Albumin 4.7 g/dL (3.5-5.0); Alkaline Phosphatase 114 U/L (38-126); Anion Gap 11 mmol/L; Blood Urea Nitrogen 9 mg/dL (9-20); Calcium 10.3 mg/dL (8.4-10.2); Carbon Dioxide 27 mmol/L (22-30); Chloride 103 mmol/L (98-107); Glucose 115 mg/dL (74-99); Non-African American GFR(CKD) >90 (>60 ml/min/1.73 sqM); Potassium 3.7 mmol/L (3.5-5.1); Sodium 141 mmol/L (137-145); Total Bilirubin 0.7 mg/dL (0.2-1.3); Total Protein 7.1 g/dL (6.3-8.2)
[2024-12-09 20:13] VITALS: BP 121/71; PULSE 78; RESP 18; TEMP 98.4
== END 2024-12-09 20:33 | disposition home or self-care (01) ==
LOC: EC 17:22
DX: G89.29 Other chronic pain (principal); R10.9 Unspecified abdominal pain; Z87.891 Personal history of nicotine dependence; Z88.8 Allergy status to other drugs, medicaments and biological substances; Z88.6 Allergy status to analgesic agent
CPT/HCPCS: 36415; 80053; 85025; 99284; 96374; 96375; J3490; J1171

== ENCOUNTER 2024-12-21 09:56 | Emergency (ER) | payer OTHER ==
--- NOTE | 2024-12-21 10:20 | ED ---
General Adult HPI - General Chief complaint: Nausea/Vomiting/Diarrhea Stated complaint: diahhrea Time Seen by Provider: 12/21/24 10:09 Source: patient, RN notes reviewed Mode of arrival: ambulatory Limitations: no limitations - History of Present Illness Initial comments: This is a 34 year old male who is presenting with a history of Crohn's disease for chief complaint of diffuse abdominal pain and diarrhea over the past 24 hours. Patient states that his last bowel movement was yesterday evening that was loose. Denies hematochezia, melena, urinary complaints. Denies nausea, vomiting, fevers, chills, flank pain. - Related Data Home Medications Medication Instructions Recorded Confirmed Nicotine 21Mg/24Hr Patch [Habitrol] 1 patch TRANSDERM HS 07/18/24 07/19/24 Previous Rx's Medication Instructions Recorded ALPRAZolam [Xanax] 0.5 mg PO TID PRN #9 tablet 07/18/24 Nicotine 14Mg/24Hr Patch [Habitrol] 1 patch TRANSDERM DAILY patch 07/21/24 Omeprazole [PriLOSEC] 20 mg PO AC-BRKFST 30 Days #30 cap 07/21/24 Ziprasidone [Geodon] 20 mg PO 1700 30 Days #30 cap 07/21/24 fluvoxaMINE MALEATE 50 mg PO BID 30 Days #60 tab 07/21/24 lamoTRIgine [LaMICtal] 100 mg PO DAILY 30 Days #30 tab 07/21/24 Loperamide HCl [Imodium A-D] 2 mg PO ONCE #30 tablet 07/29/24 Simethicone [Gas-X] 125 mg PO QID #40 capsule 07/30/24 diazePAM [Valium] 2 mg PO BID PRN 3 Days #6 tab 09/03/24 Dicyclomine [Bentyl] 20 mg PO TID #30 tablet 10/03/24 Metoclopramide [Reglan] 10 mg PO Q6H PRN #20 tab 10/13/24 Docusate [Colace] 100 mg PO DAILY PRN 14 Days #14 10/21/24 capsule Allergies Allergy/AdvReac Type Severity Reaction Status Date / Time aripiprazole [From Abilify] Allergy Unknown Agitation Verified 12/09/24 18:01 cariprazine [From Vraylar] Allergy Unknown Agitation Verified 12/09/24 18:01 citalopram [From Celexa] Allergy Unknown Agitation Verified 12/09/24 18:01 divalproex sodium Allergy Unknown Agitation Verified 12/09/24 18:01 [From Depakote] paroxetine [From Paxil] Allergy Unknown Agitation Verified 12/09/24 18:01 sertraline [From Zoloft] Allergy Unknown Agitation Verified 12/09/24 18:01 metoclopramide [From Reglan] Allergy Rash/Hives Verified 12/09/24 18:01 phenobarbital AdvReac Severe Rapid Verified 12/09/24 18:01 Heart Rate zolpidem tartrate AdvReac Unknown Altered Verified 12/09/24 18:01 [From Ambien] Mental Status dicyclomine [From Bentyl] AdvReac Rapid Verified 12/09/24 18:01 Heart Rate estropipate [From Ogen 2.5] AdvReac Twitching Verified 12/09/24 18:01 of Legs haloperidol [From Haldol] AdvReac Agitation Verified 12/09/24 18:01 ketorolac [From Toradol] AdvReac Unknown Verified 12/09/24 18:01 lorazepam [From Ativan] AdvReac Hallucinati Verified 12/09/24 18:01 ons methylprednisolone AdvReac Altered Verified 12/09/24 18:01 [From Solu-Medrol] Mental Status ondansetron [From Zofran] AdvReac Unknown Verified 12/09/24 18:01 Review of Systems ROS Statement: Those systems with pertinent positive or pertinent negative responses have been documented in the HPI. ROS Other: All systems not noted in ROS Statement are negative. 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 PT IS ABLE TO MAKE DECISIONS FOR HIMSELF,IBS History of Any Multi-Drug Resistant Organisms: None Reported Past Surgical History: Tonsillectomy Additional Past Surgical History / Comment(s): wisdom teeth removed. Past Anesthesia/Blood Transfusion Reactions: No Reported Reaction Additional Past Anesthesia/Blood Transfusion Reaction / Comment(s): NEVER HAD BLOOD TRANSFUSION Past Psychological History: ADD/ADHD, Anxiety, Bipolar, Depression, PTSD Smoking Status: Former smoker Past Alcohol Use History: None Reported Past Drug Use History: None Reported - Past Family History Sister(s) Additional Family Medical History / Comment(s): He has one sister that is healthy. He also has a 4-year-old daughter that is healthy. Father Family Medical History: GERD/Reflux Additional Family Medical History / Comment(s): DAD HAS ALSO NEVER BEEN AN ALCOHOLIC-RARELY, RARELY DRINKS. Mother Family Medical History: Cancer Additional Family Medical History / Comment(s): MOM STATES SHE HAS NEVER BEEN AN ALCOHOLIC-MOM RARELY ,RARELY DRINKS. HX THYROID CANCER General Exam Limitations: no limitations General appearance: alert, in no apparent distress Neck exam: Present: normal inspection. Absent: tenderness, meningismus, lymphadenopathy Respiratory exam: Present: normal lung sounds bilaterally. Absent: respiratory distress, wheezes, rales, rhonchi, stridor Cardiovascular Exam: Present: regular rate, normal rhythm, normal heart sounds. Absent: systolic murmur, diastolic murmur, rubs, gallop, clicks GI/Abdominal exam: Present: soft, normal bowel sounds. Absent: distended, tenderness, guarding, rebound, rigid Extremities exam: Present: normal inspection, full ROM, normal capillary refill. Absent: tenderness, pedal edema, joint swelling, calf tenderness Back exam: Present: normal inspection. Absent: CVA tenderness (R), CVA ten derness (L) Course Vital Signs 12/21/24 12/21/24 12/21/24 10:04 11:00 11:30 Temperature 98 F Pulse Rate 95 89 99 Respiratory 16 17 19 Rate Blood Pressure 117/75 107/69 125/75 O2 Sat by Pulse 95 98 99 Oximetry 12/21/24 12:00 Temperature Pulse Rate 101 H Respiratory 17 Rate Blood Pressure 118/68 O2 Sat by Pulse 99 Oximetry Medical Decision Making - Medical Decision Making Was pt. sent in by a medical professional or institution (, PA, [place] ADMINISTRATIVE LAW JUDGE, urgent care, hospital, or prison...) When possible be specific @ -No Did you speak to anyone other than the patient for history (EMS, parent, family, police, friend...)? What history was obtained from this source @ -No Did you review nursing and triage notes (agree or disagree)? Why? @ -I reviewed and agree with nursing and triage notes Were old charts reviewed (outside hosp., previous admission, EMS record, old EKG, old radiological studies, urgent care reports/EKG's, prison records)? Report findings @ -No old charts were reviewed Differential Diagnosis (chest pain, altered mental status, abdominal pain women, abdominal pain men, vaginal bleeding, weakness, fever, dyspnea, syncope, headache, dizziness, GI bleed, back pain, seizure, CVA, palpatations, mental health, musculoskeletal)? @ -Differential Abdominal Pain Men: Appendicitis, cholecystitis, diverticulosis, ischemic bowel, pancreatitis, hepatitis, UTI, gastroenteritis, AAA, incarcerated hernia, bowel obstruction, constipation, inflammatory bowel, hepatitis, peptic ulcer disease, splenic infarction, perforated viscus, testicular torsion, this is not meant to be an all-inclusive list EKG interpreted by me (3pts min.). @ -None X-rays interpreted by me (1pt min.). @ -None done CT interpreted by me (1pt min.). @ -None done U/S interpreted by me (1pt. min.). @ -None done What testing was considered but not performed or refused? (CT, X-rays, U/S, labs)? Why? @ -None What meds were considered but not given or refused? Why? @ -None Did you discuss the management of the patient with other professionals (professionals i.e. , PA, US ADMINISTRATIVE LAW JUDGE, lab, RT, psych nurse, pediatric social worker, solution architect, teacher, interface control officer, mental health case manager)? Give summary @ -No Was smoking cessation discussed for >3mins.? @ -No Was critical care preformed (if so, how long)? @ -No Were there social determinants of health that impacted care today? How? (H omelessness, low income, unemployed, alcoholism, drug addiction, transportation, low edu. Level, literacy, decrease access to med. care, senior living, rehab)? @ -No Was there de-escalation of care discussed even if they declined (Discuss DNR or withdrawal of care, Hospice)? DNR status @ -No What co-morbidities impacted this encounter? (DM, HTN, Smoking, COPD, CAD, Cancer, CVA, ARF, Chemo, Hep., AIDS, mental health diagnosis, sleep apnea, morbid obesity)? @ -None Was patient admitted / discharged? Hospital course, mention meds given and route, prescriptions, significant lab abnormalities, going to OR and other pertinent info. @ -Discharge. 28-year-old presenting with abdominal pain and diarrhea. Overall patient is well-appearing. Abdominal examination is quite unremarkable with no signs of rebound tenderness, rigidity or valeriano tenderness. Initial vitals are stable. He is provided with IV fluids and pain medication. Laboratory testing grossly unremarkable. Reevaluation patient states that he is feeling better. Patient has appointment scheduled with GI specialist and primary care provider in the upcoming weeks. Return parameters discussed. Case discussed with Dr. Euceda Undiagnosed new problem with uncertain prognosis? @ -No Drug Therapy requiring intensive monitoring for toxicity (Heparin, Nitro, Insulin, Cardizem)? @ -No Were any procedures done? @ -No Diagnosis/symptom? @ -Chronic abdominal pain, diarrhea Acute, or Chronic, or Acute on Chronic? @ -Acute on chronic Uncomplicated (without systemic symptoms) or Complicated (systemic symptoms)? @ -Uncomplicated Side effects of treatment? @ -No Exacerbation, Progression, or Severe Exacerbation? @ -No Poses a threat to life or bodily function? How? (Chest pain, USA, ID, pneumonia, PE, COPD, DKA, ARF, appy, cholecystitis, CVA, Diverticulitis, Homicidal, Suicidal, threat to staff... and all critical care pts) @ -No - Lab Data Result diagrams: 12/21/24 10:25 12/21/24 11:30 Lab Results 12/21/24 12/21/24 12/21/24 Range/Units 10:25 10:25 11:30 WBC 7.21 (4.50-10.00) 10*3/uL RBC 5.06 (4.40-5.60) 10*6/uL Hgb 15.6 (13.0-17.0) g/dL Hct 45.6 (39.6-50.0) % MCV 90.1 (80.0-97.0) fL MCH 30.8 (27.0-32.0) pg MCHC 34.2 (32.0-37.0) g/dL Plt Count 189 (140-440) 10*3/uL MPV 10.8 (9.5-12.2) fL Immature Gran % (Auto) 0.1 % Neutrophils % 45.2 % Lymphocytes % 44.8 % Monocytes % 8.3 % Eosinophils % 1.2 % Basophils % 0.4 % Immature Gran # 0.01 (0.00-0.04) 10*3/uL Neutrophils # 3.25 (1.80-7.70) 10*3/uL Lymphocytes # 3.23 (0.90-5.00) 10*3/uL Monocytes # 0.60 (0.20-1.00) 10*3/uL Eosinophils # 0.09 (0.04-0.35) 10*3/uL Basophils # 0.03 (0.00-0.10) 10*3/uL Sodium 139 (137-145) mmol/L Potassium 3.7 (3.5-5.1) mmol/L Chloride 104 (98-107) mmol/L Carbon Dioxide 27 (22-30) mmol/L Anion Gap 8 mmol/L BUN 11 (9-20) mg/dL Creatinine 0.75 (0.66-1.25) mg/dL Est GFR (CKD-EPI)AfAm >90 (>60 ml/min/1.73 sqM) Est GFR (CKD-EPI)NonAf >90 (>60 ml/min/1.73 sqM) Glucose 99 (74-99) mg/dL Calcium 9.5 (8.4-10.2) mg/dL Total Bilirubin 0.5 (0.2-1.3) mg/dL AST 22 (17-59) U/L ALT 15 (4-49) U/L Alkaline Phosphatase 83 (38-126) U/L Total Protein 6.0 L (6.3-8.2) g/dL Albumin 4.1 (3.5-5.0) g/dL Lipase 14 L (23-300) U/L Urine Color Yellow Urine Appearance Clear (Clear) Urine pH 6.0 (5.0-8.0) Ur Specific [place] 1.024 (1.001-1.035) Urine Protein Trace H (Negative) Urine Glucose (UA) Negative (Negative) Urine Ketones Negative (Negative) Urine Blood Negative (Negative) Urine Nitrite Negative (Negative) Urine Bilirubin Negative (Negative) Urine Urobilinogen 3.0 (<2.0) mg/dL Ur Leukocyte Esterase Negative (Negative) Disposition Clinical Impression: Chronic abdominal pain, Diarrhea Disposition: HOME SELF-CARE Condition: Good Instructions (If sedation given, give patient instructions): Chronic Abdominal Pain (ED) Additional Instructions: Please return to the Emergency Department if symptoms worsen or any other concerns. Is patient prescribed a controlled substance at d/c from ED?: No Referrals: Sumeet Mejias III, MD [Primary Care Provider] - 1-2 days Time of Disposition: 12:24
[2024-12-21] MEDS: KETOROLAC 15 MG/ML 1 ML VIAL IVP STA (10:22)
[2024-12-21] MEDS: SODIUM CHLORIDE 0.9% 1,000 ML IV STA (10:38)
[2024-12-21] MEDS: MORPHINE SULFATE 4 MG/ML SYRINGE IVP STA (10:39)
[2024-12-21 10:42] LABS: Basophils # (A) 0.03 10*3/uL (0.00-0.10); Basophils % (A) 0.4 %; Eosinophils # (A) 0.09 10*3/uL (0.04-0.35); Eosinophils % (A) 1.2 %; HCT 45.6 % (39.6-50.0); HGB 15.6 g/dL (13.0-17.0); Lymphocytes # (A) 3.23 10*3/uL (0.90-5.00); Lymphocytes % (A) 44.8 %; MCH 30.8 pg (27.0-32.0); MCHC 34.2 g/dL (32.0-37.0); MCV 90.1 fL (80.0-97.0); Mean Platelet Volume 10.8 fL (9.5-12.2); Monocytes % (A) 8.3 %; Neutrophils # (A) 3.25 10*3/uL (1.80-7.70); Neutrophils % (A) 45.2 %; Platelet Count 189 10*3/uL (140-440); RBC 5.06 10*6/uL (4.40-5.60); WBC 7.21 10*3/uL (4.50-10.00)
[2024-12-21] MEDS: PANTOPRAZOLE 40 MG/10 ML VIAL IVP STA (10:44)
[2024-12-21 11:46] LABS: Appearance,Urine Clear (Clear); Bilirubin,Urine Negative (Negative); Blood,Urine Negative (Negative); Color,Urine Yellow; Glucose,Urine (UA) Negative (Negative); Ketones,Urine Negative (Negative); Leukocyte Esterase,Urine Negative (Negative); Nitrite,Urine Negative (Negative); Protein,Urine Trace (Negative); Specific Gravity,Urine 1.024 (1.001-1.035)
[2024-12-21] MEDS: MORPHINE SULFATE 2 MG/ML SYRINGE IVP ONE (11:58)
[2024-12-21 12:07] LABS: ALT 15 U/L (4-49); AST 22 U/L (17-59); African American GFR (CKD) >90 (>60 ml/min/1.73 sqM); Albumin 4.1 g/dL (3.5-5.0); Alkaline Phosphatase 83 U/L (38-126); Anion Gap 8 mmol/L; Blood Urea Nitrogen 11 mg/dL (9-20); Calcium 9.5 mg/dL (8.4-10.2); Carbon Dioxide 27 mmol/L (22-30); Chloride 104 mmol/L (98-107); Glucose 99 mg/dL (74-99); Lipase 14 U/L (23-300); Non-African American GFR(CKD) >90 (>60 ml/min/1.73 sqM); Potassium 3.7 mmol/L (3.5-5.1); Sodium 139 mmol/L (137-145); Total Bilirubin 0.5 mg/dL (0.2-1.3)
[2024-12-21 12:09] VITALS: RESP 17
[2024-12-21 13:02] VITALS: BP 114/69; PULSE 95; TEMP 98.1
== END 2024-12-21 12:50 | disposition home or self-care (01) ==
LOC: EC 09:56
DX: R10.9 Unspecified abdominal pain (principal); R19.7 Diarrhea, unspecified; K50.90 Crohn's disease, unspecified, without complications; Z87.891 Personal history of nicotine dependence; Z88.1 Allergy status to other antibiotic agents; Z88.5 Allergy status to narcotic agent; Z91.048 Other nonmedicinal substance allergy status; Z88.8 Allergy status to other drugs, medicaments and biological substances
CPT/HCPCS: 36415; 80053; 83690; 85025; 81003; 99284; 96374; 96375; 96376; 96361; J2270 ×2; J2470

== ENCOUNTER 2024-12-26 17:04 | Emergency (ER) | payer OTHER ==
--- NOTE | 2024-12-26 18:38 | ED ---
Abdominal Pain HPI - General Source: patient, RN notes reviewed Mode of arrival: ambulatory Limitations: no limitations - History of Present Illness Complaint: abdominal pain <Aleta Lopez - Last Filed: 12/26/24 18:37> - General Source: patient, RN notes reviewed, old records reviewed Mode of arrival: ambulatory Limitations: no limitations - History of Present Illness Complaint: abdominal pain -: days(s) Location: diffuse Migration to: no migration Severity: severe Severity scale (1-10): 10 Quality: stabbing, aching Consistency: intermittent Improves With: nothing Worsens With: nothing Associated Symptoms: nausea, vomiting, diarrhea Treatments Prior to Arrival: other <Ruslan Ordonez - Last Filed: 12/26/24 20:37> - General Chief Complaint: Abdominal Pain Stated Complaint: Abd Pain Time Seen by Provider: 12/26/24 18:10 - History of Present Illness Initial Comments: Quick Note: This is a 34-year-old male who presents to the emergency department for abdominal pain. Patient is well-known to this emergency department for re current visits for the same complaint. States that he is having a flareup of his IBS. (Aleta Lopez) This is a 34-year-old male well-known to this ER for abdominal pain Crohn's type IBS abdominal pain. Pain is severe, mild nausea no vomiting no diarrhea currently no blood in the vomit or blood in the diarrhea, patient has been without fever and has multiple ER visits this month for similar (Ruslan Ordonez) - Related Data Home Medications Medication Instructions Recorded Confirmed Nicotine 21Mg/24Hr Patch [Habitrol] 1 patch TRANSDERM HS 07/18/24 07/19/24 Previous Rx's Medication Instructions Recorded ALPRAZolam [Xanax] 0.5 mg PO TID PRN #9 tablet 07/18/24 Nicotine 14Mg/24Hr Patch [Habitrol] 1 patch TRANSDERM DAILY patch 07/21/24 Omeprazole [PriLOSEC] 20 mg PO AC-BRKFST 30 Days #30 cap 07/21/24 Ziprasidone [Geodon] 20 mg PO 1700 30 Days #30 cap 07/21/24 fluvoxaMINE MALEATE 50 mg PO BID 30 Days #60 tab 07/21/24 lamoTRIgine [LaMICtal] 100 mg PO DAILY 30 Days #30 tab 07/21/24 Loperamide HCl [Imodium A-D] 2 mg PO ONCE #30 tablet 07/29/24 Simethicone [Gas-X] 125 mg PO QID #40 capsule 07/30/24 diazePAM [Valium] 2 mg PO BID PRN 3 Days #6 tab 09/03/24 Dicyclomine [Bentyl] 20 mg PO TID #30 tablet 10/03/24 Metoclopramide [Reglan] 10 mg PO Q6H PRN #20 tab 10/13/24 Docusate [Colace] 100 mg PO DAILY PRN 14 Days #14 10/21/24 capsule Allergies Allergy/AdvReac Type Severity Reaction Status Date / Time aripiprazole [From Abilify] Allergy Unknown Agitation Verified 12/26/24 17:37 cariprazine [From Vraylar] Allergy Unknown Agitation Verified 12/26/24 17:37 citalopram [From Celexa] Allergy Unknown Agitation Verified 12/26/24 17:37 divalproex sodium Allergy Unknown Agitation Verified 12/26/24 17:37 [From Depakote] paroxetine [From Paxil] Allergy Unknown Agitation Verified 12/26/24 17:37 sertraline [From Zoloft] Allergy Unknown Agitation Verified 12/26/24 17:37 metoclopramide [From Reglan] Allergy Rash/Hives Verified 12/26/24 17:37 phenobarbital AdvReac Severe Rapid Verified 12/26/24 17:37 Heart Rate zolpidem tartrate AdvReac Unknown Altered Verified 12/26/24 17:37 [From Ambien] Mental Status dicyclomine [From Bentyl] AdvReac Rapid Verified 12/26/24 17:37 Heart Rate estropipate [From Ogen 2.5] AdvReac Twitching Verified 12/26/24 17:37 of Legs haloperidol [From Haldol] AdvReac Agitation Verified 12/26/24 17:37 ketorolac [From Toradol] AdvReac Unknown Verified 12/26/24 17:37 lorazepam [From Ativan] AdvReac Hallucinati Verified 12/26/24 17:37 ons methylprednisolone AdvReac Altered Verified 12/26/24 17:37 [From Solu-Medrol] Mental Status ondansetron [From Zofran] AdvReac Unknown Verified 12/26/24 17:37 Review of Systems ROS Other: All systems not noted in ROS Statement are negative. <Aleta Lopez - Last Filed: 12/26/24 18:37> ROS Other: All systems not noted in ROS Statement are negative. <José LuisRuslan Nilsa - Last Filed: 12/26/24 20:37> ROS Statement: Those systems with pertinent positive or pertinent negative responses have been documented in the HPI. 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 PT IS ABLE TO MAKE DECISIONS FOR HIMSELF,IBS History of Any Multi-Drug Resistant Organisms: None Reported Past Surgical History: Tonsillectomy Additional Past Surgical History / Comment(s): wisdom teeth removed. Past Anesthesia/Blood Transfusion Reactions: No Reported Reaction Additional Past Anesthesia/Blood Transfusion Reaction / Comment(s): NEVER HAD BLOOD TRANSFUSION Past Psychological History: ADD/ADHD, Anxiety, Bipolar, Depression, PTSD Smoking Status: Former smoker Past Alcohol Use History: None Reported Past Drug Use History: None Reported - Past Family History Sister(s) Additional Family Medical History / Comment(s): He has one sister that is healthy. He also has a 4-year-old daughter that is healthy. Father Family Medical History: GERD/Reflux Additional Family Medical History / Comment(s): DAD HAS ALSO NEVER BEEN AN ALCOHOLIC-RARELY, RARELY DRINKS. Mother Family Medical History: Cancer Additional Family Medical History / Comment(s): MOM STATES SHE HAS NEVER BEEN AN ALCOHOLIC-MOM RARELY ,RARELY DRINKS. HX THYROID CANCER <Aleta Lopez - Last Filed: 12/26/24 18:37> General Exam Limitations: no limitations <Aleta Lopez - Last Filed: 12/26/24 18:37> General appearance: alert, in no apparent distress Head exam: Present: atraumatic, normocephalic, normal inspection Eye exam: Present: normal appearance, PERRL, EOMI. Absent: scleral icterus, conjunctival injection, periorbital swelling ENT exam: Present: normal exam, mucous membranes moist Neck exam: Present: normal inspection. Absent: tenderness, meningismus, lymphadenopathy Respiratory exam: Present: normal lung sounds bilaterally. Absent: respiratory distress, wheezes, rales, rhonchi, stridor Cardiovascular Exam: Present: regular rate, normal rhythm, normal heart sounds. Absent: systolic murmur, diastolic murmur, rubs, gallop, clicks GI/Abdominal exam: Present: soft, normal bowel sounds. Absent: distended, tenderness, guarding, rebound, rigid Extremities exam: Present: normal inspection, full ROM, normal capillary refill. Absent: tenderness, pedal edema, joint swelling, calf tenderness Back exam: Present: normal inspection Neurological exam: Present: alert, oriented X3, CN II-XII intact Psychiatric exam: Present: normal affect, normal mood Skin exam: Present: warm, dry, intact, normal color. Absent: rash <Ruslan Ordonez - Last Filed: 12/26/24 20:37> - General Exam Comments Initial Comments: Visual Physical Exam Vital signs reviewed General: Well-appearing, nontoxic, no acute distress. Head: Normocephalic, atraumatic Eyes: PERRLA, EOMI ENT: Airway patent Chest: Nonlabored breathing Skin: No visual rash, normal skin tone Neuro: Alert and oriented 3 Musculoskeletal: No gross abnormalities (Vogley,Aleta) Course <Rsulan Ordonez - Last Filed: 12/26/24 20:37> Vital Signs 12/26/24 17:28 Temperature 98.6 F Pulse Rate 92 Respiratory 17 Rate Blood Pressure 107/67 O2 Sat by Pulse 99 Oximetry - Reevaluation(s) Reevaluation #1: 12/26/24 19:29 Medical records reviewed (Ruslan Ordonez) Reevaluation #4: Was pt. sent in by a medical professional or institution (, PA, POWDER SHOVELER, urgent care, hospital, or half-way...) When possible be specific @ -no Did you speak to anyone other than the patient for history (EMS, parent, family, police, friend...)? What history was obtained from this source @ -no Did you review nursing and triage notes (agree or disagree)? Why? @ -agree Are old charts reviewed (outside hosp., previous admission, EMS record, old EKG, old radiological studies, urgent care reports/EKG's, half-way records)? Report findings @ -yes Differential Diagnosis (chest pain, altered mental status, abdominal pain women, abdominal pain men, vaginal bleeding, weakness, fever, dyspnea, syncope, headache, dizziness, GI bleed, back pain, seizure, CVA, palpatations, mental health, musculoskeletal)? @ -prior EKG interpreted by me (3pts min.). @ -yes X-rays interpreted by me (1pt min.). @ -yes negative for acute disease CT interpreted by me (1pt min.). @ -no U/S interpreted by me (1pt. min.). @ -no What testing was considered but not performed or refused? (CT, X-rays, U/S, labs)? Why? @ -none What meds were considered but not given or refused? Why? @ -none Did you discuss the management of the patient with other professionals (professionals i.e. , PA, POWDER SHOVELER, lab, RT, psych nurse, social contact worker, vest busheler, teacher, campus safety officer, casework specialist)? Give summary @ -no Was smoking cessation discussed for >3mins.? @ -no Was critical care preformed (if so, how long)? @ -no Were there social determinants of health that impacted care today? How? (Homelessness, low income, unemployed, alcoholism, drug addiction, transport ation, low edu. Level, literacy, decrease access to med. care, [facility], rehab)? @ -none Was there de-escalation of care discussed even if they declined (Discuss DNR or withdrawal of care, Hospice)? DNR status @ -no What co-morbidities impacted this encounter? (DM, HTN, Smoking, COPD, CAD, Cancer, CVA, ARF, Chemo, Hep., AIDS, mental health diagnosis, sleep apnea, morbid obesity)? @ -none Was patient admitted / discharged? Hospital course, mention meds given and route, prescriptions, significant lab abnormalities, going to OR and other pertinent info. @ - Undiagnosed new problem with uncertain prognosis? @ -no Drug Therapy requiring intensive monitoring for toxicity (Heparin, Nitro, Insulin, Cardizem)? @ -no Were any procedures done? @ -no Diagnosis/symptom? @ - Acute, or Chronic, or Acute on Chronic? @ -Acute Uncomplicated (without systemic symptoms) or Complicated (systemic symptoms)? @ -Complicated Side effects of treatment? @ -no Exacerbation, Progression, or Severe Exacerbation? @ -exacerbation Poses a threat to life or bodily function? How? (Chest pain, [place], [place], pneumonia, PE, COPD, DKA, ARF, appy, cholecystitis, CVA, Diverticulitis, Homicidal, Suicidal, threat to staff... and all critical care pts) @ -yes (Ruslan Ordonez) Reevaluation #5: Differential Abdominal Pain Men: Appendicitis, cholecystitis, diverticulosis, ischemic bowel, pancreatitis, hepatitis, UTI, gastroenteritis, AAA, incarcerated hernia, bowel obstruction, constipation, inflammatory bowel, hepatitis, peptic ulcer disease, splenic infarction, perforated viscus, testicular torsion, this is not meant to be an all-inclusive list (Ruslan Ordonez) Medical Decision Making <Aleta Lopez - Last Filed: 12/26/24 18:37> - Medical Decision Making I performed the QuickNote portion of this chart. Signed Aleta Lopez PA-C. (Aleta Lopez) Disposition <Aleta Lopez - Last Filed: 12/26/24 18:37> Is patient prescribed a controlled substance at d/c from ED?: No Time of Disposition: 20:30 <Ruslan Ordonez - Last Filed: 12/26/24 20:37> Clinical Impression: Chronic pain, Abdominal pain Disposition: HOME SELF-CARE Condition: Good Instructions (If sedation given, give patient instructions): Abdominal Pain (ED) Referrals: Sumeet Mejias III, MD [Primary Care Provider] - 1-2 days
[2024-12-26] MEDS: HYDROmorphone 1 MG/ML 1 ML SYRINGE IM STA (20:48)
[2024-12-26 21:16] VITALS: BP 111/68; PULSE 76; RESP 16; TEMP 98.8
== END 2024-12-26 21:17 | disposition home or self-care (01) ==
LOC: EC 17:04
DX: G89.29 Other chronic pain (principal); R10.9 Unspecified abdominal pain; Z87.891 Personal history of nicotine dependence; Z88.8 Allergy status to other drugs, medicaments and biological substances
CPT/HCPCS: 99283; 96372; J1171

== ENCOUNTER 2024-12-28 16:28 | Emergency (ER) | payer OTHER ==
[2024-12-28] MEDS: SODIUM CHLORIDE 0.9% 1,000 ML IV ONE (17:41)
[2024-12-28] MEDS: MORPHINE SULFATE 4 MG/ML SYRINGE IVP STA (17:42)
[2024-12-28 17:59] LABS: Basophils # (A) 0.04 10*3/uL (0.00-0.10); Basophils % (A) 0.7 %; Eosinophils # (A) 0.06 10*3/uL (0.04-0.35); HGB 14.6 g/dL (13.0-17.0); Lymphocytes # (A) 2.25 10*3/uL (0.90-5.00); Lymphocytes % (A) 38.9 %; MCH 31.1 pg (27.0-32.0); MCV 91.5 fL (80.0-97.0); Monocytes # (A) 0.36 10*3/uL (0.20-1.00); Monocytes % (A) 6.2 %; Neutrophils # (A) 3.07 10*3/uL (1.80-7.70); Platelet Count 192 10*3/uL (140-440); RDW 14.3 % (11.5-14.5); WBC 5.79 10*3/uL (4.50-10.00)
[2024-12-28 18:12] LABS: ALT 18 U/L (4-49); AST 26 U/L (17-59); African American GFR (CKD) >90 (>60 ml/min/1.73 sqM); Albumin 4.4 g/dL (3.5-5.0); Alkaline Phosphatase 76 U/L (38-126); Amylase 43 U/L (30-110); Anion Gap 9 mmol/L; Blood Urea Nitrogen 14 mg/dL (9-20); Calcium 9.7 mg/dL (8.4-10.2); Carbon Dioxide 29 mmol/L (22-30); Chloride 103 mmol/L (98-107); Glucose 87 mg/dL (74-99); Lipase 29 U/L (23-300); Non-African American GFR(CKD) >90 (>60 ml/min/1.73 sqM); Potassium 3.6 mmol/L (3.5-5.1); Sodium 141 mmol/L (137-145); Total Bilirubin 0.5 mg/dL (0.2-1.3); Total Protein 6.5 g/dL (6.3-8.2)
[2024-12-28] MEDS: HYDROmorphone 0.5 MG/0.5 ML SYRINGE IVP STA (18:30)
--- NOTE | 2024-12-28 19:07 | ED ---
Abdominal Pain HPI - General Chief Complaint: Abdominal Pain Stated Complaint: ABD Pain Source: patient Mode of arrival: ambulatory Limitations: no limitations - History of Present Illness Initial Comments: 34-year-old male well-known to our ER presenting with chief complaint of a bdominal pain. Patient states this feels just like one of his IBS flareups. He has been seen here on multiple occasions for the same complaint. He is having diarrhea, no blood. No vomiting. No fever. No urinary symptoms. No chest pain or difficulty breathing. He has been taking Pepto-Bismol and Tylenol for his pain. - Related Data Home Medications Medication Instructions Recorded Confirmed Nicotine 21Mg/24Hr Patch [Habitrol] 1 patch TRANSDERM HS 07/18/24 07/19/24 Previous Rx's Medication Instructions Recorded ALPRAZolam [Xanax] 0.5 mg PO TID PRN #9 tablet 07/18/24 Nicotine 14Mg/24Hr Patch [Habitrol] 1 patch TRANSDERM DAILY patch 07/21/24 Omeprazole [PriLOSEC] 20 mg PO AC-BRKFST 30 Days #30 cap 07/21/24 Ziprasidone [Geodon] 20 mg PO 1700 30 Days #30 cap 07/21/24 fluvoxaMINE MALEATE 50 mg PO BID 30 Days #60 tab 07/21/24 lamoTRIgine [LaMICtal] 100 mg PO DAILY 30 Days #30 tab 07/21/24 Loperamide HCl [Imodium A-D] 2 mg PO ONCE #30 tablet 07/29/24 Simethicone [Gas-X] 125 mg PO QID #40 capsule 07/30/24 diazePAM [Valium] 2 mg PO BID PRN 3 Days #6 tab 09/03/24 Dicyclomine [Bentyl] 20 mg PO TID #30 tablet 10/03/24 Metoclopramide [Reglan] 10 mg PO Q6H PRN #20 tab 10/13/24 Docusate [Colace] 100 mg PO DAILY PRN 14 Days #14 10/21/24 capsule Allergies Allergy/AdvReac Type Severity Reaction Status Date / Time aripiprazole [From Abilify] Allergy Unknown Agitation Verified 12/28/24 16:33 cariprazine [From Vraylar] Allergy Unknown Agitation Verified 12/28/24 16:33 citalopram [From Celexa] Allergy Unknown Agitation Verified 12/28/24 16:33 divalproex sodium Allergy Unknown Agitation Verified 12/28/24 16:33 [From Depakote] paroxetine [From Paxil] Allergy Unknown Agitation Verified 12/28/24 16:33 sertraline [From Zoloft] Allergy Unknown Agitation Verified 12/28/24 16:33 metoclopramide [From Reglan] Allergy Rash/Hives Verified 12/28/24 16:33 phenobarbital AdvReac Severe Rapid Verified 12/28/24 16:33 Heart Rate zolpidem tartrate AdvReac Unknown Altered Verified 12/28/24 16:33 [From Ambien] Mental Status dicyclomine [From Bentyl] AdvReac Rapid Verified 12/28/24 16:33 Heart Rate estropipate [From Ogen 2.5] AdvReac Twitching Verified 12/28/24 16:33 of Legs haloperidol [From Haldol] AdvReac Agitation Verified 12/28/24 16:33 ketorolac [From Toradol] AdvReac Unknown Verified 12/28/24 16:33 lorazepam [From Ativan] AdvReac Hallucinati Verified 12/28/24 16:33 ons methylprednisolone AdvReac Altered Verified 12/28/24 16:33 [From Solu-Medrol] Mental Status ondansetron [From Zofran] AdvReac Unknown Verified 12/28/24 16:33 Review of Systems ROS Statement: Those systems with pertinent positive or pertinent negative responses have been documented in the HPI. ROS Other: All systems not noted in ROS Statement are negative. 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 PT IS ABLE TO MAKE DECISIONS FOR HIMSELF,IBS History of Any Multi-Drug Resistant Organisms: None Reported Past Surgical History: Tonsillectomy Additional Past Surgical History / Comment(s): wisdom teeth removed. Past Anesthesia/Blood Transfusion Reactions: No Reported Reaction Additional Past Anesthesia/Blood Transfusion Reaction / Comment(s): NEVER HAD BLOOD TRANSFUSION Past Psychological History: ADD/ADHD, Anxiety, Bipolar, Depression, PTSD Smoking Status: Former smoker Past Alcohol Use History: None Reported Past Drug Use History: None Reported - Past Family History Sister(s) Additional Family Medical History / Comment(s): He has one sister that is healthy. He also has a 4-year-old daughter that is healthy. Father Family Medical History: GERD/Reflux Additional Family Medical History / Comment(s): DAD HAS ALSO NEVER BEEN AN ALCOHOLIC-RARELY, RARELY DRINKS. Mother Family Medical History: Cancer Additional Family Medical History / Comment(s): MOM STATES SHE HAS NEVER BEEN AN ALCOHOLIC-MOM RARELY ,RARELY DRINKS. HX THYROID CANCER General Exam Limitations: no limitations General appearance: alert, in no apparent distress Head exam: Present: atraumatic, normocephalic, normal inspection Eye exam: Present: normal appearance, EOMI Neck exam: Present: normal inspection. Absent: meningismus Respiratory exam: Present: normal lung sounds bilaterally. Absent: respiratory distress, wheezes, rales, rhonchi, stridor Cardiovascular Exam: Present: regular rate, normal rhythm, normal heart sounds. Absent: systolic murmur, diastolic murmur, rubs, gallop, clicks GI/Abdominal exam: Present: soft. Absent: distended, tenderness, guarding, rebound, rigid Neurological exam: Present: alert, oriented X3 Psychiatric exam: Present: normal affect, normal mood Skin exam: Present: warm, dry, normal color Course Vital Signs 12/28/24 12/28/24 16:31 19:17 Temperature 97.7 F 98.3 F Pulse Rate 110 H 102 H Respiratory 18 20 Rate Blood Pressure 114/76 116/68 O2 Sat by Pulse 98 98 Oximetry Medical Decision Making - Medical Decision Making Was pt. sent in by a medical professional or institution (, PA, EXTRA HAND, urgent care, hospital, or custodial...) When possible be specific @ -No Did you speak to anyone other than the patient for history (EMS, parent, family, police, friend...)? What history was obtained from this source @ -No Did you review nursing and triage notes (agree or disagree)? Why? @ -I reviewed and agree with nursing and triage notes Were old charts reviewed (outside hosp., previous admission, EMS record, old EKG, old radiological studies, urgent care reports/EKG's, custodial records)? Report findings @ -Reviewed recent visits for same complaint Differential Diagnosis (chest pain, altered mental status, abdominal pain women, abdominal pain men, vaginal bleeding, weakness, fever, dyspnea, syncope, headache, dizziness, GI bleed, back pain, seizure, CVA, palpatations, mental health, musculoskeletal)? @ -MDM Differential Abdominal Pain Men: Appendicitis, cholecystitis, diverticulosis, ischemic bowel, pancreatitis, hepatitis, UTI, gastroenteritis, AAA, incarcerated hernia, bowel obstruction, constipation, inflammatory bowel, hepatitis, peptic ulcer disease, splenic infarction, perforated viscus, testicular torsion... This is not meant to be an all-inclusive list EKG interpreted by me (3pts min.). @ -As above X-rays interpreted by me (1pt min.). @ -None done CT interpreted by me (1pt min.). @ -None done U/S interpreted by me (1pt. min.). @ -None done What testing was considered but not performed or refused? (CT, X-rays, U/S, lab s)? Why? @ -None What meds were considered but not given or refused? Why? @ -None Did you discuss the management of the patient with other professionals (professionals i.e. , PA, EXTRA HAND, lab, RT, psych nurse, drug abuse social worker, plant floor automation manager, teacher, accounting officer, case folder)? Give summary @ -No Was smoking cessation discussed for >3mins.? @ -No Was critical care preformed (if so, how long)? @ -No Were there social determinants of health that impacted care today? How? (Homelessness, low income, unemployed, alcoholism, drug addiction, transportation, low edu. Level, literacy, decrease access to med. care, [facility], rehab)? @ -No Was there de-escalation of care discussed even if they declined (Discuss DNR or withdrawal of care, Hospice)? DNR status @ -No What co-morbidities impacted this encounter? (DM, HTN, Smoking, COPD, CAD, Cancer, CVA, ARF, Chemo, Hep., AIDS, mental health diagnosis, sleep apnea, morbid obesity)? @ -None Was patient admitted / discharged? Hospital course, mention meds given and route, prescriptions, significant lab abnormalities, going to OR and other pertinent info. @ -34-year-old male presenting with chief complaint of abdominal pain. History of IBS. Feels consistent with pain he has had in the past in relation to his IBS. Admits to diarrhea, no vomiting. No fever. History and physical examination are conducted. Lactic acid 2.1, patient is receiving IV fluids. Remainder of lab work is grossly unremarkable. Patient educated on today's findings. He has an upcoming appointment with GI. Follow-up with PCP. Report back to ER with any new or worsening symptoms. Discussed return parameters and answered all questions. Patient conveyed verbal understanding and agreed to the plan. I discussed this case in detail with my attending Dr. Euceda Undiagnosed new problem with uncertain prognosis? @ -No Drug Therapy requiring intensive monitoring for toxicity (Heparin, Nitro, Insulin, Cardizem)? @ -No Were any procedures done? @ -No Diagnosis/symptom? @ -Abdominal pain Acute, or Chronic, or Acute on Chronic? @ -Acute on chronic Uncomplicated (without systemic symptoms) or Complicated (systemic symptoms)? @ -Uncomplicated Side effects of treatment? @ -No Exacerbation, Progression, or Severe Exacerbation? @ -No Poses a threat to life or bodily function? How? (Chest pain, [place], [place], pneumonia, PE, COPD, DKA, ARF, appy, cholecystitis, CVA, Diverticulitis, Homicidal, Suicidal, threat to staff... and all critical care pts) @ -Unlikely - Lab Data Result diagrams: 12/28/24 17:40 12/28/24 17:40 Lab Results 12/28/24 12/28/24 12/28/24 Range/Units 17:40 17:40 17:40 WBC 5.79 (4.50-10.00) 10*3/uL RBC 4.70 (4.40-5.60) 10*6/uL Hgb 14.6 (13.0-17.0) g/dL Hct 43.0 (39.6-50.0) % MCV 91.5 (80.0-97.0) fL MCH 31.1 (27.0-32.0) pg MCHC 34.0 (32.0-37.0) g/dL Plt Count 192 (140-440) 10*3/uL MPV 11.0 (9.5-12.2) fL Immature Gran % (Auto) 0.2 % Neutrophils % 53.0 % Lymphocytes % 38.9 % Monocytes % 6.2 % Eosinophils % 1.0 % Basophils % 0.7 % Immature Gran # 0.01 (0.00-0.04) 10*3/uL Neutrophils # 3.07 (1.80-7.70) 10*3/uL Lymphocytes # 2.25 (0.90-5.00) 10*3/uL Monocytes # 0.36 (0.20-1.00) 10*3/uL Eosinophils # 0.06 (0.04-0.35) 10*3/uL Basophils # 0.04 (0.00-0.10) 10*3/uL Sodium 141 (137-145) mmol/L Potassium 3.6 (3.5-5.1) mmol/L Chloride 103 (98-107) mmol/L Carbon Dioxide 29 (22-30) mmol/L Anion Gap 9 mmol/L BUN 14 (9-20) mg/dL Creatinine 0.72 (0.66-1.25) mg/dL Est GFR (CKD-EPI)AfAm >90 (>60 ml/min/1.73 sqM) Est GFR (CKD-EPI)NonAf >90 (>60 ml/min/1.73 sqM) Glucose 87 (74-99) mg/dL Lactic Ac Sepsis Rflx Plasma Lactic Acid Socrates 2.1 H* (0.7-2.0) mmol/L Calcium 9.7 (8.4-10.2) mg/dL Total Bilirubin 0.5 (0.2-1.3) mg/dL AST 26 (17-59) U/L ALT 18 (4-49) U/L Alkaline Phosphatase 76 (38-126) U/L Total Protein 6.5 (6.3-8.2) g/dL Albumin 4.4 (3.5-5.0) g/dL Amylase 43 (30-110) U/L Lipase 29 (23-300) U/L // Range/Units 18:32 WBC (4.50-10.00) 10*3/uL RBC (4.40-5.60) 10*6/uL Hgb (13.0-17.0) g/dL Hct (39.6-50.0) % MCV (80.0-97.0) fL MCH (27.0-32.0) pg MCHC (32.0-37.0) g/dL Plt Count (140-440) 10*3/uL MPV (9.5-12.2) fL Immature Gran % (Auto) % Neutrophils % % Lymphocytes % % Monocytes % % Eosinophils % % Basophils % % Immature Gran # (0.00-0.04) 10*3/uL Neutrophils # (1.80-7.70) 10*3/uL Lymphocytes # (0.90-5.00) 10*3/uL Monocytes # (0.20-1.00) 10*3/uL Eosinophils # (0.04-0.35) 10*3/uL Basophils # (0.00-0.10) 10*3/uL Sodium (137-145) mmol/L Potassium (3.5-5.1) mmol/L Chloride (98-107) mmol/L Carbon Dioxide (22-30) mmol/L Anion Gap mmol/L BUN (9-20) mg/dL Creatinine (0.66-1.25) mg/dL Est GFR (CKD-EPI)AfAm (>60 ml/min/1.73 sqM) Est GFR (CKD-EPI)NonAf (>60 ml/min/1.73 sqM) Glucose (74-99) mg/dL Lactic Ac Sepsis Rflx Y Plasma Lactic Acid Socrates (0.7-2.0) mmol/L Calcium (8.4-10.2) mg/dL Total Bilirubin (0.2-1.3) mg/dL AST (17-59) U/L ALT (4-49) U/L Alkaline Phosphatase (38-126) U/L Total Protein (6.3-8.2) g/dL Albumin (3.5-5.0) g/dL Amylase (30-110) U/L Lipase (23-300) U/L Disposition Clinical Impression: Chronic abdominal pain Disposition: HOME SELF-CARE Condition: Good Instructions (If sedation given, give patient instructions): Abdominal Pain (ED) Additional Instructions: Follow-up with PCP and GI at upcoming appointment. Report back to ER with any new or worsening symptoms. Is patient prescribed a controlled substance at d/c from ED?: No Referrals: Sumeet Mejias III, MD [Primary Care Provider] - 1-2 days Time of Disposition: 19:07
[2024-12-28 19:19] VITALS: BP 116/68; PULSE 102; RESP 20; TEMP 98.3
== END 2024-12-28 19:19 | disposition home or self-care (01) ==
LOC: EC 16:28
DX: G89.29 Other chronic pain (principal); R10.9 Unspecified abdominal pain; Z88.8 Allergy status to other drugs, medicaments and biological substances
CPT/HCPCS: 36415; 80053; 82150; 83605; 83690; 85025; 99284; 96374; 96375; 96361; J2270; J1171

== ENCOUNTER 2024-12-31 00:36 | Emergency (ER) | payer OTHER ==
[2024-12-31 00:39] VITALS: TEMP 98
--- NOTE | 2024-12-31 01:40 | ED ---
Abdominal Pain HPI - General Chief Complaint: Abdominal Pain Stated Complaint: IBS Time Seen by Provider: 12/31/24 01:37 Source: patient, RN notes reviewed Mode of arrival: ambulatory Limitations: no limitations - History of Present Illness Initial Comments: 34-year-old male with history of IBS presenting for abdominal pain. States this feels similar to previous IBS flareups. Admits several episodes of watery diarrhea today. Denies nausea, vomiting, fevers. States he has a GI appointment with Dr. Caba this week. - Related Data Home Medications Medication Instructions Recorded Confirmed Nicotine 21Mg/24Hr Patch [Habitrol] 1 patch TRANSDERM HS 07/18/24 07/19/24 Previous Rx's Medication Instructions Recorded ALPRAZolam [Xanax] 0.5 mg PO TID PRN #9 tablet 07/18/24 Nicotine 14Mg/24Hr Patch [Habitrol] 1 patch TRANSDERM DAILY patch 07/21/24 Omeprazole [PriLOSEC] 20 mg PO AC-BRKFST 30 Days #30 cap 07/21/24 Ziprasidone [Geodon] 20 mg PO 1700 30 Days #30 cap 07/21/24 fluvoxaMINE MALEATE 50 mg PO BID 30 Days #60 tab 07/21/24 lamoTRIgine [LaMICtal] 100 mg PO DAILY 30 Days #30 tab 07/21/24 Loperamide HCl [Imodium A-D] 2 mg PO ONCE #30 tablet 07/29/24 Simethicone [Gas-X] 125 mg PO QID #40 capsule 07/30/24 diazePAM [Valium] 2 mg PO BID PRN 3 Days #6 tab 09/03/24 Dicyclomine [Bentyl] 20 mg PO TID #30 tablet 10/03/24 Metoclopramide [Reglan] 10 mg PO Q6H PRN #20 tab 10/13/24 Docusate [Colace] 100 mg PO DAILY PRN 14 Days #14 10/21/24 capsule Allergies Allergy/AdvReac Type Severity Reaction Status Date / Time aripiprazole [From Abilify] Allergy Unknown Agitation Verified 12/31/24 00:39 cariprazine [From Vraylar] Allergy Unknown Agitation Verified 12/31/24 00:39 citalopram [From Celexa] Allergy Unknown Agitation Verified 12/31/24 00:39 divalproex sodium Allergy Unknown Agitation Verified 12/31/24 00:39 [From Depakote] paroxetine [From Paxil] Allergy Unknown Agitation Verified 12/31/24 00:39 sertraline [From Zoloft] Allergy Unknown Agitation Verified 12/31/24 00:39 metoclopramide [From Reglan] Allergy Rash/Hives Verified 12/31/24 00:39 phenobarbital AdvReac Severe Rapid Verified 12/31/24 00:39 Heart Rate zolpidem tartrate AdvReac Unknown Altered Verified 12/31/24 00:39 [From Ambien] Mental Status dicyclomine [From Bentyl] AdvReac Rapid Verified 12/31/24 00:39 Heart Rate estropipate [From Ogen 2.5] AdvReac Twitching Verified 12/31/24 00:39 of Legs haloperidol [From Haldol] AdvReac Agitation Verified 12/31/24 00:39 ketorolac [From Toradol] AdvReac Unknown Verified 12/31/24 00:39 lorazepam [From Ativan] AdvReac Hallucinati Verified 12/31/24 00:39 ons methylprednisolone AdvReac Altered Verified 12/31/24 00:39 [From Solu-Medrol] Mental Status ondansetron [From Zofran] AdvReac Unknown Verified 12/31/24 00:39 Review of Systems ROS Statement: Those systems with pertinent positive or pertinent negative responses have been documented in the HPI. ROS Other: All systems not noted in ROS Statement are negative. 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 PT IS ABLE TO MAKE DECISIONS FOR HIMSELF,IBS History of Any Multi-Drug Resistant Organisms: None Reported Past Surgical History: Tonsillectomy Additional Past Surgical History / Comment(s): wisdom teeth removed. Past Anesthesia/Blood Transfusion Reactions: No Reported Reaction Additional Past Anesthesia/Blood Transfusion Reaction / Comment(s): NEVER HAD BLOOD TRANSFUSION Past Psychological History: ADD/ADHD, Anxiety, Bipolar, Depression, PTSD Smoking Status: Former smoker Past Alcohol Use History: None Reported Past Drug Use History: None Reported - Past Family History Sister(s) Additional Family Medical History / Comment(s): He has one sister that is heal thy. He also has a 4-year-old daughter that is healthy. Father Family Medical History: GERD/Reflux Additional Family Medical History / Comment(s): DAD HAS ALSO NEVER BEEN AN ALCOHOLIC-RARELY, RARELY DRINKS. Mother Family Medical History: Cancer Additional Family Medical History / Comment(s): MOM STATES SHE HAS NEVER BEEN AN ALCOHOLIC-MOM RARELY ,RARELY DRINKS. HX THYROID CANCER General Exam Limitations: no limitations General appearance: alert, in no apparent distress Head exam: Present: atraumatic, normocephalic, normal inspection GI/Abdominal exam: Present: soft, normal bowel sounds. Absent: distended, tenderness, guarding, rebound, rigid Neurological exam: Present: alert, oriented X3 Psychiatric exam: Present: normal affect, normal mood Skin exam: Present: warm, dry, intact, normal color. Absent: rash Course Vital Signs 12/31/24 12/31/24 00:37 02:57 Temperature 98 F Pulse Rate 101 H 68 Respiratory 18 16 Rate Blood Pressure 129/75 110/63 O2 Sat by Pulse 100 100 Oximetry Medical Decision Making - Medical Decision Making Was pt. sent in by a medical professional or institution (LINO Patel, CUSTOMER SUPPORT PROFESSIONAL, urgent care, hospital, or long-term...) When possible be specific @ -No Did you speak to anyone other than the patient for history (EMS, parent, family, police, friend...)? What history was obtained from this source @ -No Did you review nursing and triage notes (agree or disagree)? Why? @ -I reviewed and agree with nursing and triage notes Were old charts reviewed (outside hosp., previous admission, EMS record, old EKG, old radiological studies, urgent care reports/EKG's, long-term records)? Report findings @ -No old charts were reviewed Differential Diagnosis (chest pain, altered mental status, abdominal pain women, abdominal pain men, vaginal bleeding, weakness, fever, dyspnea, syncope, headache, dizziness, GI bleed, back pain, seizure, CVA, palpatations, mental health, musculoskeletal)? @ -Differential Abdominal Pain Men: Appendicitis, cholecystitis, diverticulosis, ischemic bowel, pancreatitis, hepatitis, UTI, gastroenteritis, AAA, incarcerated hernia, bowel obstruction, constipation, inflammatory bowel, hepatitis, peptic ulcer disease, splenic infarction, perforated viscus, testicular torsion, this is not meant to be an all-inclusive list EKG interpreted by me (3pts min.). @ -None X-rays interpreted by me (1pt min.). @ -None done CT interpreted by me (1pt min.). @ -None done U/S interpreted by me (1pt. min.). @ -None done What testing was considered but not performed or refused? (CT, X-rays, U/S, labs)? Why? @ -None What meds were considered but not given or refused? Why? @ -None Did you discuss the management of the patient with other professionals (professionals i.e. Dr., PA, CUSTOMER SUPPORT PROFESSIONAL, lab, RT, psych nurse, social security specialist, map plotter, teacher, staff mine warfare officer, case managers)? Give summary @ -No Was smoking cessation discussed for >3mins.? @ -No Was critical care preformed (if so, how long)? @ -No Were there social determinants of health that impacted care today? How? (Homelessness, low income, unemployed, alcoholism, drug addiction, transportation, low edu. Level, literacy, decrease access to med. care, intermediate, rehab)? @ -No Was there de-escalation of care discussed even if they declined (Discuss DNR or withdrawal of care, Hospice)? DNR status @ -No What co-morbidities impacted this encounter? (DM, HTN, Smoking, COPD, CAD, Cancer, CVA, ARF, Chemo, Hep., AIDS, mental health diagnosis, sleep apnea, morbid obesity)? @ -None Was patient admitted / discharged? Hospital course, mention meds given and route, prescriptions, significant lab abnormalities, going to OR and other pertinent info. @ -Discharge. 34-year-old male well-known to ER presenting for abdominal pain. History of IBS with multiple ER visits for flareups, patient states this feels like his typical IBS pain. Abdomen is soft and nonsurgical. Provided with IV fluids and analgesics. Lab work largely unremarkable. Results discussed with patient. Upon reevaluation, patient reports significant improvement of symptoms and feels stable for discharge. Patient has GI follow-up this week. Appropriate return precautions and supportive care discussed. Case was discussed with my ED attending Dr. Vegas. Undiagnosed new problem with uncertain prognosis? @ -No Drug Therapy requiring intensive monitoring for toxicity (Heparin, Nitro, Insulin, Cardizem)? @ -No Were any procedures done? @ -No Diagnosis/symptom? @ -Abdominal pain Acute, or Chronic, or Acute on Chronic? @ -Acute Uncomplicated (without systemic symptoms) or Complicated (systemic symptoms)? @ -Uncomplicated Side effects of treatment? @ -No Exacerbation, Progression, or Severe Exacerbation? @ -No Poses a threat to life or bodily function? How? (Chest pain, USA, MD, pneumonia, PE, COPD, DKA, ARF, appy, cholecystitis, CVA, Diverticulitis, Homicidal, Suicidal, threat to staff... and all critical care pts) @ -No - Lab Data Result diagrams: 12/31/24 01:54 12/31/24 01:54 Lab Results 12/31/24 12/31/24 12/31/24 Range/Units 01:54 01:54 01:54 WBC 6.76 (4.50-10.00) 10*3/uL RBC 4.42 (4.40-5.60) 10*6/uL Hgb 13.7 (13.0-17.0) g/dL Hct 40.2 (39.6-50.0) % MCV 91.0 (80.0-97.0) fL MCH 31.0 (27.0-32.0) pg MCHC 34.1 (32.0-37.0) g/dL Plt Count 196 (140-440) 10*3/uL MPV 10.6 (9.5-12.2) fL Immature Gran % (Auto) 0.3 % Neutrophils % 64.4 % Lymphocytes % 27.2 % Monocytes % 6.8 % Eosinophils % 0.7 % Basophils % 0.6 % Immature Gran # 0.02 (0.00-0.04) 10*3/uL Neutrophils # 4.35 (1.80-7.70) 10*3/uL Lymphocytes # 1.84 (0.90-5.00) 10*3/uL Monocytes # 0.46 (0.20-1.00) 10*3/uL Eosinophils # 0.05 (0.04-0.35) 10*3/uL Basophils # 0.04 (0.00-0.10) 10*3/uL Sodium 142 (137-145) mmol/L Potassium 3.7 (3.5-5.1) mmol/L Chloride 104 (98-107) mmol/L Carbon Dioxide 25 (22-30) mmol/L Anion Gap 13 mmol/L BUN 17 (9-20) mg/dL Creatinine 0.86 (0.66-1.25) mg/dL Est GFR (CKD-EPI)AfAm >90 (>60 ml/min/1.73 sqM) Est GFR (CKD-EPI)NonAf >90 (>60 ml/min/1.73 sqM) Glucose 96 (74-99) mg/dL Plasma Lactic Acid Socrates 1.9 (0.7-2.0) mmol/L Calcium 9.6 (8.4-10.2) mg/dL Total Bilirubin 0.6 (0.2-1.3) mg/dL AST 27 (17-59) U/L ALT 19 (4-49) U/L Alkaline Phosphatase 83 (38-126) U/L Total Protein 6.6 (6.3-8.2) g/dL Albumin 4.6 (3.5-5.0) g/dL Disposition Clinical Impression: Abdominal pain Disposition: HOME SELF-CARE Condition: Stable Additional Instructions: Follow-up for upcoming appointment with GI specialist. Please return to the Emergency Department if symptoms worsen or any other concerns. Is patient prescribed a controlled substance at d/c from ED?: No Referrals: Sumeet Mejias III, MD [Primary Care Provider] - 1-2 days Time of Disposition: 02:58
[2024-12-31 02:02] LABS: Basophils # (A) 0.04 10*3/uL (0.00-0.10); Basophils % (A) 0.6 %; Eosinophils # (A) 0.05 10*3/uL (0.04-0.35); Eosinophils % (A) 0.7 %; HCT 40.2 % (39.6-50.0); HGB 13.7 g/dL (13.0-17.0); Lymphocytes # (A) 1.84 10*3/uL (0.90-5.00); Lymphocytes % (A) 27.2 %; MCHC 34.1 g/dL (32.0-37.0); Mean Platelet Volume 10.6 fL (9.5-12.2); Monocytes # (A) 0.46 10*3/uL (0.20-1.00); Monocytes % (A) 6.8 %; Neutrophils # (A) 4.35 10*3/uL (1.80-7.70); Neutrophils % (A) 64.4 %; Platelet Count 196 10*3/uL (140-440); RBC 4.42 10*6/uL (4.40-5.60); RDW 14.4 % (11.5-14.5); WBC 6.76 10*3/uL (4.50-10.00)
[2024-12-31] MEDS: DICYCLOMINE 20 MG TAB PO STA (02:08)
[2024-12-31] MEDS: ACETAMINOPHEN TAB 500 MG TAB PO STA (02:08)
[2024-12-31] MEDS: FAMOTIDINE 20 MG/2 ML VIAL IV STA (02:09)
[2024-12-31] MEDS: SODIUM CHLORIDE 0.9% 1,000 ML IV STA (02:09)
[2024-12-31] MEDS: HYDROmorphone 2 MG/ML 1 ML SYRINGE IVP STA (02:10)
[2024-12-31 02:20] LABS: Carbon Dioxide 25 mmol/L (22-30); Chloride 104 mmol/L (98-107); Glucose 96 mg/dL (74-99); Potassium 3.7 mmol/L (3.5-5.1); Sodium 142 mmol/L (137-145)
[2024-12-31 02:21] LABS: ALT 19 U/L (4-49); AST 27 U/L (17-59); African American GFR (CKD) >90 (>60 ml/min/1.73 sqM); Albumin 4.6 g/dL (3.5-5.0); Alkaline Phosphatase 83 U/L (38-126); Anion Gap 13 mmol/L; Blood Urea Nitrogen 17 mg/dL (9-20); Calcium 9.6 mg/dL (8.4-10.2); Non-African American GFR(CKD) >90 (>60 ml/min/1.73 sqM); Total Bilirubin 0.6 mg/dL (0.2-1.3); Total Protein 6.6 g/dL (6.3-8.2)
[2024-12-31 02:57] VITALS: BP 110/63; RESP 16
[2024-12-31] MEDS: HYDROmorphone 0.5 MG/0.5 ML SYRINGE IVP STA (02:58)
[2024-12-31 03:03] VITALS: PULSE 69
== END 2024-12-31 03:07 | disposition home or self-care (01) ==
LOC: EC 00:36
DX: R10.9 Unspecified abdominal pain (principal); Z87.891 Personal history of nicotine dependence; Z88.8 Allergy status to other drugs, medicaments and biological substances
CPT/HCPCS: 36415; 80053; 83605; 85025; 99284; 96374; 96375; 96376; 96361; J1171 ×2; J1308

== ENCOUNTER 2025-01-01 17:17 | Emergency (ER) | payer OTHER ==
[2025-01-01 17:41] VITALS: RESP 18; TEMP 97.8
--- NOTE | 2025-01-01 18:09 | ED ---
Abdominal Pain HPI - General Source: patient, RN notes reviewed Mode of arrival: ambulatory Limitations: no limitations <David Bonds - Last Filed: 01/01/25 18:07> - General Source: patient, RN notes reviewed, old records reviewed Mode of arrival: ambulatory Limitations: no limitations - History of Present Illness MD Complaint: abdominal pain -: days(s) Location: diffuse, periumbilical Radiation: none Migration to: no migration, periumbilical Severity: severe Severity scale (1-10): 10 Quality: stabbing, aching Consistency: constant Improves With: nothing Worsens With: nothing Associated Symptoms: nausea, vomiting Treatments Prior to Arrival: other <Ruslan Ordonez - Last Filed: 01/10/25 02:53> - General Chief Complaint: Abdominal Pain Stated Complaint: abd pain Time Seen by Provider: 01/01/25 17:34 - History of Present Illness Initial Comments: Quick note: This is a 34-year-old male with history including GERD, Crohn's disease, IBS presenting for abdominal pain (06/15) x 1 month. Patient states he has been having IBS flareups for the past month with associated nausea, diarrhea, clammy skin and tremors. Endorses use of Tylenol, Kaopectate, Pepto- Bismol and probiotics with minimal relief. States "nothing is working for p ain". Denies fever, chills, hematochezia, melena. (David Bonds) This is a 34-year-old male with chronic pain (Ruslan Ordonez) - Related Data Home Medications Medication Instructions Recorded Confirmed Nicotine 21Mg/24Hr Patch [Habitrol] 1 patch TRANSDERM HS 07/18/24 07/19/24 Previous Rx's Medication Instructions Recorded ALPRAZolam [Xanax] 0.5 mg PO TID PRN #9 tablet 07/18/24 Nicotine 14Mg/24Hr Patch [Habitrol] 1 patch TRANSDERM DAILY patch 07/21/24 Omeprazole [PriLOSEC] 20 mg PO AC-BRKFST 30 Days #30 cap 07/21/24 Ziprasidone [Geodon] 20 mg PO 1700 30 Days #30 cap 07/21/24 fluvoxaMINE MALEATE 50 mg PO BID 30 Days #60 tab 07/21/24 lamoTRIgine [LaMICtal] 100 mg PO DAILY 30 Days #30 tab 07/21/24 Loperamide HCl [Imodium A-D] 2 mg PO ONCE #30 tablet 07/29/24 Simethicone [Gas-X] 125 mg PO QID #40 capsule 07/30/24 diazePAM [Valium] 2 mg PO BID PRN 3 Days #6 tab 09/03/24 Dicyclomine [Bentyl] 20 mg PO TID #30 tablet 10/03/24 Metoclopramide [Reglan] 10 mg PO Q6H PRN #20 tab 10/13/24 Docusate [Colace] 100 mg PO DAILY PRN 14 Days #14 10/21/24 capsule Prochlorperazine [Compazine] 10 mg PO Q8H PRN #30 tab 01/01/25 Allergies Allergy/AdvReac Type Severity Reaction Status Date / Time aripiprazole [From Abilify] Allergy Unknown Agitation Verified 01/10/25 01:47 cariprazine [From Vraylar] Allergy Unknown Agitation Verified 01/10/25 01:47 citalopram [From Celexa] Allergy Unknown Agitation Verified 01/10/25 01:47 divalproex sodium Allergy Unknown Agitation Verified 01/10/25 01:47 [From Depakote] paroxetine [From Paxil] Allergy Unknown Agitation Verified 01/10/25 01:47 sertraline [From Zoloft] Allergy Unknown Agitation Verified 01/10/25 01:47 metoclopramide [From Reglan] Allergy Rash/Hives Verified 01/10/25 01:47 prochlorperazine Allergy Anaphylaxis Verified 01/10/25 01:47 [From Compazine] phenobarbital AdvReac Severe Rapid Verified 01/10/25 01:47 Heart Rate zolpidem tartrate AdvReac Unknown Altered Verified 01/10/25 01:47 [From Ambien] Mental Status dicyclomine [From Bentyl] AdvReac Rapid Verified 01/10/25 01:47 Heart Rate diphenhydramine AdvReac Hallucinati Verified 01/10/25 01:47 [From Benadryl] ons estropipate [From Ogen 2.5] AdvReac Twitching Verified 01/10/25 01:47 of Legs haloperidol [From Haldol] AdvReac Agitation Verified 01/10/25 01:47 ketorolac [From Toradol] AdvReac Unknown Verified 01/10/25 01:47 lorazepam [From Ativan] AdvReac Hallucinati Verified 01/10/25 01:47 ons methylprednisolone AdvReac Altered Verified 01/10/25 01:47 [From Solu-Medrol] Mental Status ondansetron [From Zofran] AdvReac Unknown Verified 01/10/25 01:47 Review of Systems ROS Other: All systems not noted in ROS Statement are negative. <David Bonds - Last Filed: 01/01/25 18:07> ROS Other: All systems not noted in ROS Statement are negative. <Ruslan Ordonez - Last Filed: 01/10/25 02:53> ROS Statement: Those systems with pertinent positive or pertinent negative responses have been documented in the HPI. 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 PT IS ABLE TO MAKE DECISIONS FOR HIMSELF,IBS History of Any Multi-Drug Resistant Organisms: None Reported Past Surgical History: Tonsillectomy Additional Past Surgical History / Comment(s): wisdom teeth removed. Past Anesthesia/Blood Transfusion Reactions: No Reported Reaction Additional Past Anesthesia/Blood Transfusion Reaction / Comment(s): NEVER HAD BLOOD TRANSFUSION Past Psychological History: ADD/ADHD, Anxiety, Bipolar, Depression, PTSD Smoking Status: Former smoker Past Alcohol Use History: None Reported Past Drug Use History: None Reported - Past Family History Sister(s) Additional Family Medical History / Comment(s): He has one sister that is healthy. He also has a 4-year-old daughter that is healthy. Father Family Medical History: GERD/Reflux Additional Family Medical History / Comment(s): DAD HAS ALSO NEVER BEEN AN ALCOHOLIC-RARELY, RARELY DRINKS. Mother Family Medical History: Cancer Additional Family Medical History / Comment(s): MOM STATES SHE HAS NEVER BEEN AN ALCOHOLIC-MOM RARELY ,RARELY DRINKS. HX THYROID CANCER <David Bonds - Last Filed: 01/01/25 18:07> General Exam Limitations: no limitations <David Bonds - Last Filed: 01/01/25 18:07> General appearance: alert, in no apparent distress Head exam: Present: atraumatic, normocephalic, normal inspection Eye exam: Present: normal appearance, PERRL, EOMI. Absent: scleral icterus, conjunctival injection, periorbital swelling ENT exam: Present: normal exam, mucous membranes moist Neck exam: Present: normal inspection. Absent: tenderness, meningismus, lymphadenopathy Respiratory exam: Present: normal lung sounds bilaterally. Absent: respiratory distress, wheezes, rales, rhonchi, stridor Cardiovascular Exam: Present: regular rate, normal rhythm, normal heart sounds. Absent: systolic murmur, diastolic murmur, rubs, gallop, clicks GI/Abdominal exam: Present: soft, normal bowel sounds. Absent: distended, tenderness, guarding, rebound, rigid Extremities exam: Present: normal inspection, full ROM, normal capillary refill. Absent: tenderness, pedal edema, joint swelling, calf tenderness Back exam: Present: normal inspection Neurological exam: Present: alert, oriented X3, CN II-XII intact Psychiatric exam: Present: normal affect, normal mood Skin exam: Present: warm, dry, intact, normal color. Absent: rash <Ruslan Ordonez - Last Filed: 01/10/25 02:53> - General Exam Comments Initial Comments: Visual Physical Exam Vital signs reviewed General: Mild distress, pallor and tremors noted. Head: Normocephalic, atraumatic Eyes: PERRLA, EOMI ENT: Airway patent Chest: Nonlabored breathing Skin: No visual rash, normal skin tone Neuro: Alert and oriented 3 Musculoskeletal: No gross abnormalities (David Bonds) Course <Ruslan Ordonez - Last Filed: 01/10/25 02:53> Vital Signs 01/01/25 01/01/25 17:38 18:46 Temperature 97.8 F Pulse Rate 81 80 Respiratory 18 18 Rate Blood Pressure 132/74 130/76 O2 Sat by Pulse 100 97 Oximetry - Reevaluation(s) Reevaluation #1: Medical records reviewed (Ruslan Ordonez) Reevaluation #2: Patient symptoms improved (Ruslan Ordonez) Reevaluation #3: Patient informed of results and questions answered (Ruslan Ordonez) Reevaluation #4: Was pt. sent in by a medical professional or institution (LINO Patel, MARK UP DESIGNER, urgent care, hospital, or fpc...) When possible be specific @ -no Did you speak to anyone other than the patient for history (EMS, parent, family, police, friend...)? What history was obtained from this source @ -no Did you review nursing and triage notes (agree or disagree)? Why? @ -agree Are old charts reviewed (outside hosp., previous admission, EMS record, old EKG, old radiological studies, urgent care reports/EKG's, fpc records)? Report findings @ -yes Differential Diagnosis (chest pain, altered mental status, abdominal pain women, abdominal pain men, vaginal bleeding, weakness, fever, dyspnea, syncope, headache, dizziness, GI bleed, back pain, seizure, CVA, palpatations, mental health, musculoskeletal)? @ -prior EKG interpreted by me (3pts min.). @ -no X-rays interpreted by me (1pt min.). @ -no CT interpreted by me (1pt min.). @ -no U/S interpreted by me (1pt. min.). @ -no What testing was considered but not performed or refused? (CT, X-rays, U/S, labs)? Why? @ -none What meds were considered but not given or refused? Why? @ -none Did you discuss the management of the patient with other professionals (professionals i.e. LINO Patel, MARK UP DESIGNER, lab, RT, psych nurse, neonatal social worker, group fitness manager, teacher, commercial account officer, block and case maker)? Give summary @ -no Was smoking cessation discussed for >3mins.? @ -no Was critical care preformed (if so, how long)? @ -no Were there social determinants of health that impacted care today? How? (Homelessness, low income, unemployed, alcoholism, drug addiction, transportation, low edu. Level, literacy, decrease access to med. care, halfway, rehab)? @ -none Was there de-escalation of care discussed even if they declined (Discuss DNR or withdrawal of care, Hospice)? DNR status @ -no What co-morbidities impacted this encounter? (DM, HTN, Smoking, COPD, CAD, Cancer, CVA, ARF, Chemo, Hep., AIDS, mental health diagnosis, sleep apnea, morbid obesity)? @ -none Was patient admitted / discharged? Hospital course, mention meds given and route, prescriptions, significant lab abnormalities, going to OR and other pertinent info. @ -34 male to ER for severe abdominal pain. Patient has persistent abdominal pain here in the ER improved patient can be discharged home Undiagnosed new problem with uncertain prognosis? @ -no Drug Therapy requiring intensive monitoring for toxicity (Heparin, Nitro, Insulin, Cardizem)? @ -no Were any procedures done? @ -no Diagnosis/symptom? @ -Abdominal pain Acute, or Chronic, or Acute on Chronic? @ -Acute Uncomplicated (without systemic symptoms) or Complicated (systemic symptoms)? @ -Complicated Side effects of treatment? @ -no Exacerbation, Progression, or Severe Exacerbation? @ -exacerbation Poses a threat to life or bodily function? How? (Chest pain, USA, [place], pneumonia, PE, COPD, DKA, ARF, appy, cholecystitis, CVA, Diverticulitis, Homicidal, Suicidal, threat to staff... and all critical care pts) @ -no (Ruslan Ordonez) Reevaluation #5: Differential Abdominal Pain Men: Appendicitis, cholecystitis, diverticulosis, ischemic bowel, pancreatitis, hepatitis, UTI, gastroenteritis, AAA, incarcerated hernia, bowel obstruction, constipation, inflammatory bowel, hepatitis, peptic ulcer disease, splenic infarction, perforated viscus, testicular torsion, this is not meant to be an a ll-inclusive list (Ruslan Ordonez) Medical Decision Making <David Bonds - Last Filed: 01/01/25 18:07> <Ruslan Ordonez - Last Filed: 01/10/25 02:53> - Medical Decision Making I completed the quick note portion of this chart signed JODIE Lewis (David Bonds) 34 male with chronic pain. Patient's pain is well-controlled here in the ER and can be discharged home (Ruslan Ordonez) Disposition <David Bonds - Last Filed: 01/01/25 18:07> Is patient prescribed a controlled substance at d/c from ED?: No Time of Disposition: 18:30 <Ruslan Ordonez - Last Filed: 01/10/25 02:53> Clinical Impression: Abdominal pain, Diarrhea, Chronic pain Disposition: HOME SELF-CARE Condition: Fair Instructions (If sedation given, give patient instructions): Abdominal Pain (ED) Prescriptions: Prochlorperazine [Compazine] 10 mg PO Q8H PRN #30 tab PRN Reason: Nausea And Vomiting Referrals: Sumeet Mejias III, MD [Primary Care Provider] - 1-2 days
[2025-01-01 18:48] VITALS: BP 130/76; PULSE 80
[2025-01-01] MEDS: diphenhydrAMINE 25 MG CAP PO STA (18:48)
[2025-01-01] MEDS: PROCHLORPERAZINE 10 MG TAB PO STA (18:48)
[2025-01-01] MEDS: ACET/COD 300 MG/30 MG STARTER PACK 6 TAB BTL PO STA (18:48)
[2025-01-01] MEDS: HYDROmorphone 2 MG/ML 1 ML SYRINGE IM STA (18:49)
== END 2025-01-01 18:53 | disposition home or self-care (01) ==
LOC: EC 17:17
DX: R19.7 Diarrhea, unspecified (principal); R10.9 Unspecified abdominal pain; G89.29 Other chronic pain; Z87.891 Personal history of nicotine dependence; Z88.2 Allergy status to sulfonamides; Z88.3 Allergy status to other anti-infective agents; Z88.6 Allergy status to analgesic agent; Z88.8 Allergy status to other drugs, medicaments and biological substances
CPT/HCPCS: 99283; 96372; S0183; J1171

== ENCOUNTER 2025-01-03 20:22 | Emergency (ER) | payer OTHER ==
[2025-01-03] MEDS: SODIUM CHLORIDE 0.9% 1,000 ML IV ONE (21:35)
[2025-01-03 21:40] LABS: Basophils # (A) 0.04 10*3/uL (0.00-0.10); Basophils % (A) 0.7 %; Eosinophils # (A) 0.08 10*3/uL (0.04-0.35); Eosinophils % (A) 1.3 %; HCT 40.9 % (39.6-50.0); HGB 14.2 g/dL (13.0-17.0); Lymphocytes % (A) 38.2 %; MCH 31.1 pg (27.0-32.0); MCHC 34.7 g/dL (32.0-37.0); MCV 89.7 fL (80.0-97.0); Mean Platelet Volume 10.7 fL (9.5-12.2); Monocytes # (A) 0.41 10*3/uL (0.20-1.00); Monocytes % (A) 6.8 %; Neutrophils # (A) 3.18 10*3/uL (1.80-7.70); Neutrophils % (A) 52.8 %; Platelet Count 184 10*3/uL (140-440); RBC 4.56 10*6/uL (4.40-5.60); RDW 14.4 % (11.5-14.5); WBC 6.02 10*3/uL (4.50-10.00)
[2025-01-03] MEDS: diphenhydrAMINE 50 MG/ML 1 ML VIAL IVP STA (22:05)
[2025-01-03] MEDS: HYDROmorphone 1 MG/ML 1 ML SYRINGE IVP STA (22:05)
[2025-01-03 22:07] LABS: ALT 24 U/L (4-49); African American GFR (CKD) >90 (>60 ml/min/1.73 sqM); Albumin 4.7 g/dL (3.5-5.0); Amylase 47 U/L (30-110); Anion Gap 12 mmol/L; Blood Urea Nitrogen 15 mg/dL (9-20); Calcium 9.6 mg/dL (8.4-10.2); Carbon Dioxide 28 mmol/L (22-30); Chloride 100 mmol/L (98-107); Glucose 111 mg/dL (74-99); Lipase 23 U/L (23-300); Non-African American GFR(CKD) >90 (>60 ml/min/1.73 sqM); Sodium 140 mmol/L (137-145); Total Bilirubin 0.8 mg/dL (0.2-1.3); Total Protein 6.9 g/dL (6.3-8.2)
[2025-01-03 22:09] LABS: AST 40 U/L (17-59); Alkaline Phosphatase 60 U/L (38-126); Magnesium 1.9 mg/dL (1.6-2.3); Potassium 4.8 mmol/L (3.5-5.1)
--- NOTE | 2025-01-03 22:46 | ED ---
Abdominal Pain HPI - General Chief Complaint: Abdominal Pain Stated Complaint: Stomach Pain/NVD Time Seen by Provider: 01/03/25 21:15 Source: patient, RN notes reviewed Mode of arrival: ambulatory Limitations: no limitations - History of Present Illness Initial Comments: This is a 34-year-old male who presents to the emergency department for abdominal pain. Patient is well-known to this emergency department for the same complaint. States that he had hotdogs earlier today and then developed increasing pain and diarrhea. Believes that he has food poisoning. Denies any nausea or vomiting. MD Complaint: abdominal pain - Related Data Home Medications Medication Instructions Recorded Confirmed Nicotine 21Mg/24Hr Patch [Habitrol] 1 patch TRANSDERM HS 07/18/24 07/19/24 Previous Rx's Medication Instructions Recorded ALPRAZolam [Xanax] 0.5 mg PO TID PRN #9 tablet 07/18/24 Nicotine 14Mg/24Hr Patch [Habitrol] 1 patch TRANSDERM DAILY patch 07/21/24 Omeprazole [PriLOSEC] 20 mg PO AC-BRKFST 30 Days #30 cap 07/21/24 Ziprasidone [Geodon] 20 mg PO 1700 30 Days #30 cap 07/21/24 fluvoxaMINE MALEATE 50 mg PO BID 30 Days #60 tab 07/21/24 lamoTRIgine [LaMICtal] 100 mg PO DAILY 30 Days #30 tab 07/21/24 Loperamide HCl [Imodium A-D] 2 mg PO ONCE #30 tablet 07/29/24 Simethicone [Gas-X] 125 mg PO QID #40 capsule 07/30/24 diazePAM [Valium] 2 mg PO BID PRN 3 Days #6 tab 09/03/24 Dicyclomine [Bentyl] 20 mg PO TID #30 tablet 10/03/24 Metoclopramide [Reglan] 10 mg PO Q6H PRN #20 tab 10/13/24 Docusate [Colace] 100 mg PO DAILY PRN 14 Days #14 10/21/24 capsule Prochlorperazine [Compazine] 10 mg PO Q8H PRN #30 tab 01/01/25 Allergies Allergy/AdvReac Type Severity Reaction Status Date / Time aripiprazole [From Abilify] Allergy Unknown Agitation Verified 01/01/25 17:41 cariprazine [From Vraylar] Allergy Unknown Agitation Verified 01/01/25 17:41 citalopram [From Celexa] Allergy Unknown Agitation Verified 01/01/25 17:41 divalproex sodium Allergy Unknown Agitation Verified 01/01/25 17:41 [From Depakote] paroxetine [From Paxil] Allergy Unknown Agitation Verified 01/01/25 17:41 sertraline [From Zoloft] Allergy Unknown Agitation Verified 01/01/25 17:41 metoclopramide [From Reglan] Allergy Rash/Hives Verified 01/01/25 17:41 prochlorperazine Allergy Anaphylaxis Verified 01/03/25 21:01 [From Compazine] phenobarbital AdvReac Severe Rapid Verified 01/01/25 17:41 Heart Rate zolpidem tartrate AdvReac Unknown Altered Verified 01/01/25 17:41 [From Ambien] Mental Status dicyclomine [From Bentyl] AdvReac Rapid Verified 01/01/25 17:41 Heart Rate estropipate [From Ogen 2.5] AdvReac Twitching Verified 01/01/25 17:41 of Legs haloperidol [From Haldol] AdvReac Agitation Verified 01/01/25 17:41 ketorolac [From Toradol] AdvReac Unknown Verified 01/01/25 17:41 lorazepam [From Ativan] AdvReac Hallucinati Verified 01/01/25 17:41 ons methylprednisolone AdvReac Altered Verified 01/01/25 17:41 [From Solu-Medrol] Mental Status ondansetron [From Zofran] AdvReac Unknown Verified 01/01/25 17:41 Review of Systems ROS Statement: Those systems with pertinent positive or pertinent negative responses have been documented in the HPI. ROS Other: All systems not noted in ROS Statement are negative. 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 PT IS ABLE TO MAKE DECISIONS FOR HIMSELF,IBS History of Any Multi-Drug Resistant Organisms: None Reported Past Surgical History: Tonsillectomy Additional Past Surgical History / Comment(s): wisdom teeth removed. Past Anesthesia/Blood Transfusion Reactions: No Reported Reaction Additional Past Anesthesia/Blood Transfusion Reaction / Comment(s): NEVER HAD BLOOD TRANSFUSION Past Psychological History: ADD/ADHD, Anxiety, Bipolar, Depression, PTSD Smoking Status: Former smoker Past Alcohol Use History: None Reported Past Drug Use History: None Reported - Past Family History Sister(s) Additional Family Medical History / Comment(s): He has one sister that is healthy. He also has a 4-year-old daughter that is healthy. Father Family Medical History: GERD/Reflux Additional Family Medical History / Comment(s): DAD HAS ALSO NEVER BEEN AN ALCOHOLIC-RARELY, RARELY DRINKS. Mother Family Medical History: Cancer Additional Family Medical History / Comment(s): MOM STATES SHE HAS NEVER BEEN AN ALCOHOLIC-MOM RARELY ,RARELY DRINKS. HX THYROID CANCER General Exam Limitations: no limitations General appearance: alert, in no apparent distress Head exam: Present: atraumatic, normocephalic, normal inspection Respiratory exam: Present: normal lung sounds bilaterally. Absent: respiratory distress, wheezes, rales, rhonchi, stridor Cardiovascular Exam: Present: regular rate, normal rhythm GI/Abdominal exam: Present: soft, normal bowel sounds. Absent: distended, tenderness, guarding, rebound, rigid Neurological exam: Present: alert, oriented X3, CN II-XII intact Psychiatric exam: Present: normal affect, normal mood Skin exam: Present: warm, dry, intact, normal color. Absent: rash Course Vital Signs 01/03/25 01/03/25 20:56 23:33 Temperature 98.0 F 98.1 F Pulse Rate 102 H 104 H Respiratory 20 18 Rate Blood Pressure 111/66 125/75 O2 Sat by Pulse 97 98 Oximetry Medical Decision Making - Medical Decision Making This is a 34 year old male who presents to the emergency department for abdominal pain. Was pt. sent in by a medical professional or institution? @ -No Did you speak to anyone other than the patient for history? @ -No Did you review nursing and triage notes? @ -Yes, and I agree, it is accurate with regards to the patient's symptoms. Were old charts reviewed? @ -No Differential Diagnosis? @ -Differential Abdominal Pain Men: Appendicitis, cholecystitis, diverticulosis, ischemic bowel, pancreatitis, hepatitis, UTI, gastroenteritis, AAA, incarcerated hernia, bowel obstruction, constipation, inflammatory bowel, hepatitis, peptic ulcer disease, splenic infarction, perforated viscus, testicular torsion, this is not meant to be an all-inclusive list EKG interpreted by me (3pts min.)? @ -Not obtained X-rays interpreted by me (1pt min.)? @ -Not obtained CT interpreted by me (1pt min.)? @ -Not obtained U/S interpreted by me (1pt. min.)? @ -Not obtained What testing was considered but not performed? (CT, X-rays, U/S, labs)? Why? @ -None What meds were considered but not given? Why? @ -None Did you discuss the management of the patient with other professionals? @ -No Did you reconcile home meds? @ -No Was smoking cessation discussed for >3mins.? @ -No Was critical care preformed (if so, how long)? @ -No Were there social determinants of health that impacted care today? How? (Homelessness, low income, unemployed, alcoholism, drug addiction, transportation, low edu. Level, literacy, decrease access to med. care, intermediate, rehab)? @ -No Was there de-escalation of care discussed even if they declined? (Discuss DNR or withdrawal of care, Hospice)? @ -No What co-morbidities impacted this encounter? (DM, HTN, Smoking, COPD, CAD, Cancer, CVA, Hep., AIDS, mental health diagnosis, sleep apnea, morbid obesity)? @ -IBS Was patient admitted / discharged? @ -Discharged. Lab work unremarkable. Symptoms controlled in the emergency department and he was tolerating oral intake. Patient well-known to this emergency department for recurrent visits related to the same complaint. Advised to follow-up with his PCP. Patient discharged home in stable condition. Case discussed with ED attending Dr. Brown. Return precautions reviewed in depth, the patient is instructed to return to the emergency department with any new, worsening, or concerning symptoms. Patient verbalized understanding. Undiagnosed new problem with uncertain prognosis? @ -None Drug Therapy requiring intensive monitoring for toxicity (Heparin, Nitro, Insulin, Cardizem)? @ -None Were any procedures done? @ -None Diagnosis/symptom? @ -Abdominal pain Acute, or Chronic, or Acute on Chronic? @ -Acute Uncomplicated (without systemic symptoms) or Complicated (systemic symptoms)? @ -Uncomplicated Side effects of treatment? @ -None Exacerbation, Progression, or Severe Exacerbation] @ -Not applicable Poses a threat to life or bodily function? @ -No - Lab Data Result diagrams: 01/03/25 21:34 01/03/25 21:34 Lab Results 01/03/25 01/03/25 Range/Units 21:34 21:34 WBC 6.02 (4.50-10.00) 10*3/uL RBC 4.56 (4.40-5.60) 10*6/uL Hgb 14.2 (13.0-17.0) g/dL Hct 40.9 (39.6-50.0) % MCV 89.7 (80.0-97.0) fL MCH 31.1 (27.0-32.0) pg MCHC 34.7 (32.0-37.0) g/dL Plt Count 184 (140-440) 10*3/uL MPV 10.7 (9.5-12.2) fL Immature Gran % (Auto) 0.2 % Neutrophils % 52.8 % Lymphocytes % 38.2 % Monocytes % 6.8 % Eosinophils % 1.3 % Basophils % 0.7 % Immature Gran # 0.01 (0.00-0.04) 10*3/uL Neutrophils # 3.18 (1.80-7.70) 10*3/uL Lymphocytes # 2.30 (0.90-5.00) 10*3/uL Monocytes # 0.41 (0.20-1.00) 10*3/uL Eosinophils # 0.08 (0.04-0.35) 10*3/uL Basophils # 0.04 (0.00-0.10) 10*3/uL Sodium 140 (137-145) mmol/L Potassium 4.8 (3.5-5.1) mmol/L Chloride 100 (98-107) mmol/L Carbon Dioxide 28 (22-30) mmol/L Anion Gap 12 mmol/L BUN 15 (9-20) mg/dL Creatinine 0.85 (0.66-1.25) mg/dL Est GFR (CKD-EPI)AfAm >90 (>60 ml/min/1.73 sqM) Est GFR (CKD-EPI)NonAf >90 (>60 ml/min/1.73 sqM) Glucose 111 H (74-99) mg/dL Calcium 9.6 (8.4-10.2) mg/dL Magnesium 1.9 (1.6-2.3) mg/dL Total Bilirubin 0.8 (0.2-1.3) mg/dL AST 40 (17-59) U/L ALT 24 (4-49) U/L Alkaline Phosphatase 60 (38-126) U/L Total Protein 6.9 (6.3-8.2) g/dL Albumin 4.7 (3.5-5.0) g/dL Amylase 47 (30-110) U/L Lipase 23 (23-300) U/L Disposition Clinical Impression: Abdominal pain Disposition: HOME SELF-CARE Instructions (If sedation given, give patient instructions): Abdominal Pain (ED) Additional Instructions: Return to the emergency department with any new, worsening, or concerning symptoms. Follow up with your primary care provider in 1-2 days. Is patient prescribed a controlled substance at d/c from ED?: No Referrals: Sumeet Mejias III, MD [Primary Care Provider] - 1-2 days Time of Disposition: 22:46
[2025-01-03] MEDS: HYDROmorphone 1 MG/ML 1 ML SYRINGE IM STA (23:13)
[2025-01-03 23:35] VITALS: BP 125/75; PULSE 104; RESP 18; TEMP 98.1
== END 2025-01-03 23:35 | disposition home or self-care (01) ==
LOC: EC 20:22
DX: R10.9 Unspecified abdominal pain (principal); Z87.19 Personal history of other diseases of the digestive system; Z87.891 Personal history of nicotine dependence; Z88.6 Allergy status to analgesic agent; Z88.8 Allergy status to other drugs, medicaments and biological substances
CPT/HCPCS: 36415; 80053; 82150; 83690; 83735; 85025; 99284; 96374; 96375; 96361 ×2; 96372; J1200; J1171

== ENCOUNTER 2025-01-05 09:18 | Emergency (ER) | payer OTHER ==
[2025-01-05 09:35] VITALS: RESP 18
--- NOTE | 2025-01-05 10:31 | ED ---
Abdominal Pain HPI - General Chief Complaint: Abdominal Pain Stated Complaint: abd pain Time Seen by Provider: 01/05/25 10:31 Source: patient, RN notes reviewed, old records reviewed Mode of arrival: ambulatory Limitations: no limitations - History of Present Illness Initial Comments: 54-year-old male presented the ER for evaluation of abdominal pain. Patient frequents ER for similar complaint. Patient with a past medical history significant of IBS. Patient he believes he is having an IBS flare. Patient states for the past day he has been endorsing a generalized abdominal discomfort. Patient has taken simethicone, Prilosec, Reglan and Bentyl along with prescribed Tylenol 3's patient received starter pack prior visit. Patient also admits to diarrhea which is a typical symptom of his IBS. Admits to flatulence. No previous abdominal surgeries. No reported history of ulcerative colitis or Crohn's disease. Denies any fevers, nausea, vomiting, chest pain, shortness of breath, cough, congestion, urinary complaints. - Related Data Home Medications Medication Instructions Recorded Confirmed Nicotine 21Mg/24Hr Patch [Habitrol] 1 patch TRANSDERM HS 07/18/24 07/19/24 Previous Rx's Medication Instructions Recorded ALPRAZolam [Xanax] 0.5 mg PO TID PRN #9 tablet 07/18/24 Nicotine 14Mg/24Hr Patch [Habitrol] 1 patch TRANSDERM DAILY patch 07/21/24 Omeprazole [PriLOSEC] 20 mg PO AC-BRKFST 30 Days #30 cap 07/21/24 Ziprasidone [Geodon] 20 mg PO 1700 30 Days #30 cap 07/21/24 fluvoxaMINE MALEATE 50 mg PO BID 30 Days #60 tab 07/21/24 lamoTRIgine [LaMICtal] 100 mg PO DAILY 30 Days #30 tab 07/21/24 Loperamide HCl [Imodium A-D] 2 mg PO ONCE #30 tablet 07/29/24 Simethicone [Gas-X] 125 mg PO QID #40 capsule 07/30/24 diazePAM [Valium] 2 mg PO BID PRN 3 Days #6 tab 09/03/24 Dicyclomine [Bentyl] 20 mg PO TID #30 tablet 10/03/24 Metoclopramide [Reglan] 10 mg PO Q6H PRN #20 tab 10/13/24 Docusate [Colace] 100 mg PO DAILY PRN 14 Days #14 10/21/24 capsule Prochlorperazine [Compazine] 10 mg PO Q8H PRN #30 tab 01/01/25 Allergies Allergy/AdvReac Type Severity Reaction Status Date / Time aripiprazole [From Abilify] Allergy Unknown Agitation Verified 01/06/25 23:38 cariprazine [From Vraylar] Allergy Unknown Agitation Verified 01/06/25 23:38 citalopram [From Celexa] Allergy Unknown Agitation Verified 01/06/25 23:38 divalproex sodium Allergy Unknown Agitation Verified 01/06/25 23:38 [From Depakote] paroxetine [From Paxil] Allergy Unknown Agitation Verified 01/06/25 23:38 sertraline [From Zoloft] Allergy Unknown Agitation Verified 01/06/25 23:38 metoclopramide [From Reglan] Allergy Rash/Hives Verified 01/06/25 23:38 prochlorperazine Allergy Anaphylaxis Verified 01/06/25 23:38 [From Compazine] phenobarbital AdvReac Severe Rapid Verified 01/06/25 23:38 Heart Rate zolpidem tartrate AdvReac Unknown Altered Verified 01/06/25 23:38 [From Ambien] Mental Status dicyclomine [From Bentyl] AdvReac Rapid Verified 01/06/25 23:38 Heart Rate diphenhydramine AdvReac Hallucinati Verified 01/06/25 23:38 [From Benadryl] ons estropipate [From Ogen 2.5] AdvReac Twitching Verified 01/06/25 23:38 of Legs haloperidol [From Haldol] AdvReac Agitation Verified 01/06/25 23:38 ketorolac [From Toradol] AdvReac Unknown Verified 01/06/25 23:38 lorazepam [From Ativan] AdvReac Hallucinati Verified 01/06/25 23:38 ons methylprednisolone AdvReac Altered Verified 01/06/25 23:38 [From Solu-Medrol] Mental Status ondansetron [From Zofran] AdvReac Unknown Verified 01/06/25 23:38 Review of Systems ROS Statement: Those systems with pertinent positive or pertinent negative responses have been documented in the HPI. ROS Other: All systems not noted in ROS Statement are negative. 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 PT IS ABLE TO MAKE DECISIONS FOR HIMSELF,IBS History of Any Multi-Drug Resistant Organisms: None Reported Past Surgical History: Tonsillectomy Additional Past Surgical History / Comment(s): wisdom teeth removed. Past Anesthesia/Blood Transfusion Reactions: No Reported Reaction Additional Past Anesthesia/Blood Transfusion Reaction / Comment(s): NEVER HAD BLOOD TRANSFUSION Past Psychological History: ADD/ADHD, Anxiety, Bipolar, Depression, PTSD Smoking Status: Former smoker Past Alcohol Use History: None Reported Past Drug Use History: None Reported - Past Family History Sister(s) Additional Family Medical History / Comment(s): He has one sister that is healthy. He also has a 4-year-old daughter that is healthy. Father Family Medical History: GERD/Reflux Additional Family Medical History / Comment(s): DAD HAS ALSO NEVER BEEN AN ALCOHOLIC-RARELY, RARELY DRINKS. Mother Family Medical History: Cancer Additional Family Medical History / Comment(s): MOM STATES SHE HAS NEVER BEEN AN ALCOHOLIC-MOM RARELY ,RARELY DRINKS. HX THYROID CANCER General Exam Limitations: no limitations General appearance: alert, in no apparent distress, anxious Respiratory exam: Present: normal lung sounds bilaterally. Absent: respiratory distress, wheezes, rales, rhonchi, stridor Cardiovascular Exam: Present: regular rate, normal rhythm, normal heart sounds. Absent: systolic murmur, diastolic murmur, rubs, gallop, clicks GI/Abdominal exam: Present: soft, tenderness (General), normal bowel sounds Extremities exam: Present: normal inspection, full ROM, normal capillary refill. Absent: tenderness, pedal edema, joint swelling, calf tenderness Neurological exam: Present: alert, oriented X3, CN II-XII intact Psychiatric exam: Present: anxious Skin exam: Present: warm, dry, intact, normal color, diaphoretic Course Vital Signs 01/05/25 01/05/25 09:31 12:03 Temperature 98.1 F 97.8 F Pulse Rate 56 L 60 Respiratory 18 18 Rate Blood Pressure 115/70 100/66 O2 Sat by Pulse 100 98 Oximetry Medical Decision Making - Medical Decision Making Was pt. sent in by a medical professional or institution (LINO Patel, CHEMICAL DETECTION EXPERT, urgent care, hospital, or [facility]...) When possible be specific @ -No Did you speak to anyone other than the patient for history (EMS, parent, family, police, friend...)? What history was obtained from this source @ -No Did you review nursing and triage notes (agree or disagree)? Why? @ -I reviewed and agree with nursing and triage notes Were old charts reviewed (outside hosp., previous admission, EMS record, old EKG, old radiological studies, urgent care reports/EKG's, [facility] records)? Report findings @ -Prior medical record Differential Diagnosis (chest pain, altered mental status, abdominal pain women, abdominal pain men, vaginal bleeding, weakness, fever, dyspnea, syncope, headache, dizziness, GI bleed, back pain, seizure, CVA, palpatations, mental health, musculoskeletal)? @ -Differential Abdominal Pain Men:Appendicitis, cholecystitis, diverticulosis, ischemic bowel, pancreatitis, hepatitis, UTI, gastroenteritis, AAA, incarcerated hernia, bowel obstruction, constipation, inflammatory bowel, hepatitis, peptic ulcer disease, splenic infarction, perforated viscus, testicular torsion, this is not meant to be an all-inclusive list EKG interpreted by me (3pts min.). @ -None done X-rays interpreted by me (1pt min.). @ -None done CT interpreted by me (1pt min.). @ -None done U/S interpreted by me (1pt. min.). @ -None done What testing was considered but not performed or refused? (CT, X-rays, U/S, labs)? Why? @ -Imaging considered however patient reports pain is typical for IBS flares. Patient agreeable to obtain laboratory studies prior to imaging What meds were considered but not given or refused? Why? @ -None Did you discuss the management of the patient with other professionals (professionals i.e. LINO Patel, CHEMICAL DETECTION EXPERT, lab, RT, psych nurse, social services counselor, stogy maker, teacher, aoc director combat plans officer, case manager specialist)? Give summary @ -No Was smoking cessation discussed for >3mins.? @ -No Was critical care preformed (if so, how long)? @ -No Were there social determinants of health that impacted care today? How? (Homelessness, low income, unemployed, alcoholism, drug addiction, transportation, low edu. Level, literacy, decrease access to med. care, penitentiary, rehab)? @ -No Was there de-escalation of care discussed even if they declined (Discuss DNR or withdrawal of care, Hospice)? DNR status @ -No What co-morbidities impacted this encounter? (DM, HTN, Smoking, COPD, CAD, Canc er, CVA, ARF, Chemo, Hep., AIDS, mental health diagnosis, sleep apnea, morbid obesity)? @ -IBS Was patient admitted / discharged? Hospital course, mention meds given and route, prescriptions, significant lab abnormalities, going to OR and other pertinent info. @ -Discharged. 34 year old male well known to ER presenting to the ER for evaluation of abdominal pain. Vitals within acceptable limits. Laboratory studies obtained unremarkable. Patient symptomatically treated with improvement upon reevaluation. Patient will be discharged stable condition with follow-up to PCP and GI specialist. Patient reports GI specialist in the next couple of weeks. Return parameters discussed. Patient discharged stable condition. Patient verbally expressed understanding agreement care plan. Case discussed with ED attending, Dr. Valdivia Undiagnosed new problem with uncertain prognosis? @ -No Drug Therapy requiring intensive monitoring for toxicity (Heparin, Nitro, Insulin, Cardizem)? @ -No Were any procedures done? @ -No Diagnosis/symptom? @ -Abdominal Acute, or Chronic, or Acute on Chronic? @ -Acute on chronic Uncomplicated (without systemic symptoms) or Complicated (systemic symptoms)? @ -Uncomplicated Side effects of treatment? @ -No Exacerbation, Progression, or Severe Exacerbation? @ -No Poses a threat to life or bodily function? How? (Chest pain, [place], [place], pneumonia, PE, COPD, DKA, ARF, appy, cholecystitis, CVA, Diverticulitis, Homicidal, Suicidal, threat to staff... and all critical care pts) @ -Low at this time - Lab Data Result diagrams: 01/05/25 10:26 01/05/25 10: Lab Results 01/05/25 01/05/25 01/05/25 Range/Units 10:26 10: 10: WBC 5.18 (4.50-10.00) 10*3/uL RBC 4.75 (4.40-5.60) 10*6/uL Hgb 14.8 (13.0-17.0) g/dL Hct 43.4 (39.6-50.0) % MCV 91.4 (80.0-97.0) fL MCH 31.2 (27.0-32.0) pg MCHC 34.1 (32.0-37.0) g/dL Plt Count 184 (140-440) 10*3/uL MPV 10.3 (9.5-12.2) fL Immature Gran % (Auto) 0.2 % Neutrophils % 42.7 % Lymphocytes % 47.1 % Monocytes % 7.1 % Eosinophils % 2.5 % Basophils % 0.4 % Immature Gran # 0.01 (0.00-0.04) 10*3/uL Neutrophils # 2.21 (1.80-7.70) 10*3/uL Lymphocytes # 2.44 (0.90-5.00) 10*3/uL Monocytes # 0.37 (0.20-1.00) 10*3/uL Eosinophils # 0.13 (0.04-0.35) 10*3/uL Basophils # 0.02 (0.00-0.10) 10*3/uL Sodium 141 (137-145) mmol/L Potassium 3.7 (3.5-5.1) mmol/L Chloride 102 (98-107) mmol/L Carbon Dioxide 28 (22-30) mmol/L Anion Gap 11 mmol/L BUN 17 (9-20) mg/dL Creatinine 0.66 (0.66-1.25) mg/dL Est GFR (CKD-EPI)AfAm >90 (>60 ml/min/1.73 sqM) Est GFR (CKD-EPI)NonAf >90 (>60 ml/min/1.73 sqM) Glucose 95 (74-99) mg/dL Plasma Lactic Acid Socrates 1.8 (0.7-2.0) mmol/L Calcium 10.2 (8.4-10.2) mg/dL Total Bilirubin 0.5 (0.2-1.3) mg/dL AST 25 (17-59) U/L ALT 18 (4-49) U/L Alkaline Phosphatase 79 (38-126) U/L Total Protein 7.3 (6.3-8.2) g/dL Albumin 5.0 (3.5-5.0) g/dL Amylase 38 (30-110) U/L Lipase 19 L (23-300) U/L Urine Color Urine Appearance (Clear) Urine pH (5.0-8.0) Ur Specific [place] (1.001-1.035) Urine Protein (Negative) Urine Glucose (UA) (Negative) Urine Ketones (Negative) Urine Blood (Negative) Urine Nitrite (Negative) Urine Bilirubin (Negative) Urine Urobilinogen (<2.0) mg/dL Ur Leukocyte Esterase (Negative) 01/05/25 Range/Units 10:57 WBC (4.50-10.00) 10*3/uL RBC (4.40-5.60) 10*6/uL Hgb (13.0-17.0) g/dL Hct (39.6-50.0) % MCV (80.0-97.0) fL MCH (27.0-32.0) pg MCHC (32.0-37.0) g/dL Plt Count (140-440) 10*3/uL MPV (9.5-12.2) fL Immature Gran % (Auto) % Neutrophils % % Lymphocytes % % Monocytes % % Eosinophils % % Basophils % % Immature Gran # (0.00-0.04) 10*3/uL Neutrophils # (1.80-7.70) 10*3/uL Lymphocytes # (0.90-5.00) 10*3/uL Monocytes # (0.20-1.00) 10*3/uL Eosinophils # (0.04-0.35) 10*3/uL Basophils # (0.00-0.10) 10*3/uL Sodium (137-145) mmol/L Potassium (3.5-5.1) mmol/L Chloride (98-107) mmol/L Carbon Dioxide (22-30) mmol/L Anion Gap mmol/L BUN (9-20) mg/dL Creatinine (0.66-1.25) mg/dL Est GFR (CKD-EPI)AfAm (>60 ml/min/1.73 sqM) Est GFR (CKD-EPI)NonAf (>60 ml/min/1.73 sqM) Glucose (74-99) mg/dL Plasma Lactic Acid Socrates (0.7-2.0) mmol/L Calcium (8.4-10.2) mg/dL Total Bilirubin (0.2-1.3) mg/dL AST (17-59) U/L ALT (4-49) U/L Alkaline Phosphatase (38-126) U/L Total Protein (6.3-8.2) g/dL Albumin (3.5-5.0) g/dL Amylase (30-110) U/L Lipase (23-300) U/L Urine Color Light Yellow Urine Appearance Clear (Clear) Urine pH 6.5 (5.0-8.0) Ur Specific [place] 1.020 (1.001-1.035) Urine Protein Negative (Negative) Urine Glucose (UA) Negative (Negative) Urine Ketones Negative (Negative) Urine Blood Negative (Negative) Urine Nitrite Negative (Negative) Urine Bilirubin Negative (Negative) Urine Urobilinogen 2.0 (<2.0) mg/dL Ur Leukocyte Esterase Negative (Negative) Disposition Clinical Impression: Chronic abdominal pain Disposition: HOME SELF-CARE Condition: Stable Instructions (If sedation given, give patient instructions): Abdominal Pain (ED) Additional Instructions: Follow-up with GI specialist and PCP. Return to the ER for any new or worsening concerns. Is patient prescribed a controlled substance at d/c from ED?: No Referrals: Sumeet Mejias III, MD [Primary Care Provider] - 1-2 days Melissa Mendoza MD [STAFF PHYSICIAN] - 1-2 days Time of Disposition: 11:38
[2025-01-05 10:34] LABS: Basophils # (A) 0.02 10*3/uL (0.00-0.10); Basophils % (A) 0.4 %; Eosinophils # (A) 0.13 10*3/uL (0.04-0.35); Eosinophils % (A) 2.5 %; HCT 43.4 % (39.6-50.0); HGB 14.8 g/dL (13.0-17.0); Lymphocytes # (A) 2.44 10*3/uL (0.90-5.00); Lymphocytes % (A) 47.1 %; MCH 31.2 pg (27.0-32.0); MCHC 34.1 g/dL (32.0-37.0); MCV 91.4 fL (80.0-97.0); Mean Platelet Volume 10.3 fL (9.5-12.2); Monocytes # (A) 0.37 10*3/uL (0.20-1.00); Monocytes % (A) 7.1 %; Neutrophils # (A) 2.21 10*3/uL (1.80-7.70); Neutrophils % (A) 42.7 %; Platelet Count 184 10*3/uL (140-440); RBC 4.75 10*6/uL (4.40-5.60); RDW 14.6 % (11.5-14.5); WBC 5.18 10*3/uL (4.50-10.00)
[2025-01-05] MEDS: HYDROmorphone 0.5 MG/0.5 ML SYRINGE IVP STA (10:39)
[2025-01-05] MEDS: SODIUM CHLORIDE 0.9% 1,000 ML IV ONE (10:39)
[2025-01-05] MEDS: HYDROmorphone 1 MG/ML 1 ML SYRINGE IVP STA (10:40)
[2025-01-05] MEDS: diphenhydrAMINE 50 MG/ML 1 ML VIAL IVP STA (10:42)
[2025-01-05] MEDS: FAMOTIDINE 20 MG/2 ML VIAL IV STA (10:43)
[2025-01-05 10:51] LABS: ALT 18 U/L (4-49); AST 25 U/L (17-59); African American GFR (CKD) >90 (>60 ml/min/1.73 sqM); Alkaline Phosphatase 79 U/L (38-126); Amylase 38 U/L (30-110); Anion Gap 11 mmol/L; Blood Urea Nitrogen 17 mg/dL (9-20); Calcium 10.2 mg/dL (8.4-10.2); Carbon Dioxide 28 mmol/L (22-30); Chloride 102 mmol/L (98-107); Glucose 95 mg/dL (74-99); Lipase 19 U/L (23-300); Non-African American GFR(CKD) >90 (>60 ml/min/1.73 sqM); Potassium 3.7 mmol/L (3.5-5.1); Sodium 141 mmol/L (137-145); Total Bilirubin 0.5 mg/dL (0.2-1.3); Total Protein 7.3 g/dL (6.3-8.2)
[2025-01-05 11:05] LABS: Appearance,Urine Clear (Clear); Bilirubin,Urine Negative (Negative); Blood,Urine Negative (Negative); Color,Urine Light Yellow; Glucose,Urine (UA) Negative (Negative); Ketones,Urine Negative (Negative); Leukocyte Esterase,Urine Negative (Negative); Nitrite,Urine Negative (Negative); PH, Urine 6.5 (5.0-8.0); Protein,Urine Negative (Negative)
[2025-01-05] MEDS: ACETAMINOPHEN TAB 500 MG TAB PO STA (11:55)
[2025-01-05 12:04] VITALS: BP 100/66; PULSE 60; TEMP 97.8
== END 2025-01-05 12:05 | disposition home or self-care (01) ==
LOC: EC 09:18
DX: G89.29 Other chronic pain (principal); R10.84 Generalized abdominal pain; Z87.891 Personal history of nicotine dependence
CPT/HCPCS: 36415; 80053; 82150; 83605; 83690; 85025; 81003; 99284; 96374; 96375; 96361; J1171; J1308

== ENCOUNTER 2025-01-06 23:24 | Emergency (ER) | payer MEDICARE, OTHER ==
[2025-01-06 23:38] VITALS: BP 118/81; PULSE 87; RESP 20; TEMP 98.7
--- NOTE | 2025-01-06 23:47 | ED ---
Recheck HPI - General Chief Complaint: Abdominal Pain Stated Complaint: NVD Time Seen by Provider: 01/06/25 23:27 Source: patient, RN notes reviewed, old records reviewed Mode of arrival: ambulatory Limitations: no limitations - History of Present Illness Initial Comments: This is a 34-year-old male to the ER for evaluation today. Patient presents today for evaluation abdominal pain history of IBS history of chronic abdominal pain. Patient does have also long history of psychiatric illness. Patient has multiple recent ER visits including a day and a half ago with normal lab testing. Patient states his symptoms are [id number] he does admit to getting recent insurance update and states he will be able to see a GI doctor this week hopefully oriented asked MD Complaint: medication refill request -: days(s) Returns Today for: persistent/worsening pain related to initial visit Symptoms Since Prior Visit: worsening pain Context: ran out of medication Associated Symptoms: none - Related Data Home Medications Medication Instructions Recorded Confirmed Nicotine 21Mg/24Hr Patch [Habitrol] 1 patch TRANSDERM HS 07/18/24 07/19/24 Previous Rx's Medication Instructions Recorded ALPRAZolam [Xanax] 0.5 mg PO TID PRN #9 tablet 07/18/24 Nicotine 14Mg/24Hr Patch [Habitrol] 1 patch TRANSDERM DAILY patch 07/21/24 Omeprazole [PriLOSEC] 20 mg PO AC-BRKFST 30 Days #30 cap 07/21/24 Ziprasidone [Geodon] 20 mg PO 1700 30 Days #30 cap 07/21/24 fluvoxaMINE MALEATE 50 mg PO BID 30 Days #60 tab 07/21/24 lamoTRIgine [LaMICtal] 100 mg PO DAILY 30 Days #30 tab 07/21/24 Loperamide HCl [Imodium A-D] 2 mg PO ONCE #30 tablet 07/29/24 Simethicone [Gas-X] 125 mg PO QID #40 capsule 07/30/24 diazePAM [Valium] 2 mg PO BID PRN 3 Days #6 tab 09/03/24 Dicyclomine [Bentyl] 20 mg PO TID #30 tablet 10/03/24 Metoclopramide [Reglan] 10 mg PO Q6H PRN #20 tab 10/13/24 Docusate [Colace] 100 mg PO DAILY PRN 14 Days #14 10/21/24 capsule Prochlorperazine [Compazine] 10 mg PO Q8H PRN #30 tab 01/01/25 Allergies Allergy/AdvReac Type Severity Reaction Status Date / Time aripiprazole [From Abilify] Allergy Unknown Agitation Verified 01/06/25 23:38 cariprazine [From Vraylar] Allergy Unknown Agitation Verified 01/06/25 23:38 citalopram [From Celexa] Allergy Unknown Agitation Verified 01/06/25 23:38 divalproex sodium Allergy Unknown Agitation Verified 01/06/25 23:38 [From Depakote] paroxetine [From Paxil] Allergy Unknown Agitation Verified 01/06/25 23:38 sertraline [From Zoloft] Allergy Unknown Agitation Verified 01/06/25 23:38 metoclopramide [From Reglan] Allergy Rash/Hives Verified 01/06/25 23:38 prochlorperazine Allergy Anaphylaxis Verified 01/06/25 23:38 [From Compazine] phenobarbital AdvReac Severe Rapid Verified 01/06/25 23:38 Heart Rate zolpidem tartrate AdvReac Unknown Altered Verified 01/06/25 23:38 [From Ambien] Mental Status dicyclomine [From Bentyl] AdvReac Rapid Verified 01/06/25 23:38 Heart Rate diphenhydramine AdvReac Hallucinati Verified 01/06/25 23:38 [From Benadryl] ons estropipate [From Ogen 2.5] AdvReac Twitching Verified 01/06/25 23:38 of Legs haloperidol [From Haldol] AdvReac Agitation Verified 01/06/25 23:38 ketorolac [From Toradol] AdvReac Unknown Verified 01/06/25 23:38 lorazepam [From Ativan] AdvReac Hallucinati Verified 01/06/25 23:38 ons methylprednisolone AdvReac Altered Verified 01/06/25 23:38 [From Solu-Medrol] Mental Status ondansetron [From Zofran] AdvReac Unknown Verified 01/06/25 23:38 Review of Systems ROS Statement: Those systems with pertinent positive or pertinent negative responses have been documented in the HPI. ROS Other: All systems not noted in ROS Statement are negative. 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 PT IS ABLE TO MAKE DECISIONS FOR HIMSELF,IBS History of Any Multi-Drug Resistant Organisms: None Reported Past Surgical History: Tonsillectomy Additional Past Surgical History / Comment(s): wisdom teeth removed. Past Anesthesia/Blood Transfusion Reactions: No Reported Reaction Additional Past Anesthesia/Blood Transfusion Reaction / Comment(s): NEVER HAD BLOOD TRANSFUSION Past Psychological History: ADD/ADHD, Anxiety, Bipolar, Depression, PTSD Smoking Status: Former smoker Past Alcohol Use History: None Reported Past Drug Use History: None Reported - Past Family History Sister(s) Additional Family Medical History / Comment(s): He has one sister that is healthy. He also has a 4-year-old daughter that is healthy. Father Family Medical History: GERD/Reflux Additional Family Medical History / Comment(s): DAD HAS ALSO NEVER BEEN AN ALCOHOLIC-RARELY, RARELY DRINKS. Mother Family Medical History: Cancer Additional Family Medical History / Comment(s): MOM STATES SHE HAS NEVER BEEN AN ALCOHOLIC-MOM RARELY ,RARELY DRINKS. HX THYROID CANCER General Exam Limitations: no limitations General appearance: alert, in no apparent distress Head exam: Present: atraumatic, normocephalic, normal inspection Eye exam: Present: normal appearance, PERRL, EOMI. Absent: scleral icterus, conjunctival injection, periorbital swelling ENT exam: Present: normal exam, mucous membranes moist Neck exam: Present: normal inspection. Absent: tenderness, meningismus, lymphadenopathy Respiratory exam: Present: normal lung sounds bilaterally. Absent: respiratory distress, wheezes, rales, rhonchi, stridor Cardiovascular Exam: Present: regular rate, normal rhythm, normal heart sounds. Absent: systolic murmur, diastolic murmur, rubs, gallop, clicks GI/Abdominal exam: Present: soft, normal bowel sounds. Absent: distended, tenderness, guarding, rebound, rigid Extremities exam: Present: normal inspection, full ROM, normal capillary refill. Absent: tenderness, pedal edema, joint swelling, calf tenderness Back exam: Present: normal inspection Neurological exam: Present: alert, oriented X3, CN II-XII intact Psychiatric exam: Present: normal affect, normal mood Skin exam: Present: warm, dry, intact, normal color. Absent: rash Course Vital Signs 01/06/25 23:34 Temperature 98.7 F Pulse Rate 87 Respiratory 20 Rate Blood Pressure 118/81 O2 Sat by Pulse 100 Oximetry - Reevaluation(s) Reevaluation #1: 01/07/25 00:10 Medical records reviewed Reevaluation #2: 01/07/25 00:10 Patient symptoms improved Reevaluation #3: 01/07/25 00:10 Patient informed of results questions answered Reevaluation #4: Was pt. sent in by a medical professional or institution (LINO Patel, HYPERBARIC WELDER DIVER, urgent care, hospital, or assisted...) When possible be specific @ -no Did you speak to anyone other than the patient for history (EMS, parent, family, police, friend...)? What history was obtained from this source @ -no Did you review nursing and triage notes (agree or disagree)? Why? @ -agree Are old charts reviewed (outside hosp., previous admission, EMS record, old EKG, old radiological studies, urgent care reports/EKG's, assisted records)? Report findings @ -yes Differential Diagnosis (chest pain, altered mental status, abdominal pain women, abdominal pain men, vaginal bleeding, weakness, fever, dyspnea, syncope, headache, dizziness, GI bleed, back pain, seizure, CVA, palpatations, mental health, musculoskeletal)? @ -prior EKG interpreted by me (3pts min.). @ -yes X-rays interpreted by me (1pt min.). @ -yes negative for acute disease CT interpreted by me (1pt min.). @ -no U/S interpreted by me (1pt. min.). @ -no What testing was considered but not performed or refused? (CT, X-rays, U/S, labs)? Why? @ -none What meds were considered but not given or refused? Why? @ -none Did you discuss the management of the patient with other professionals (professionals i.e. LINO Patel, HYPERBARIC WELDER DIVER, lab, RT, psych nurse, health social work professor, press operator helper, teacher, job placement officer, case hardener)? Give summary @ -no Was smoking cessation discussed for >3mins.? @ -no Was critical care preformed (if so, how long)? @ -no Were there social determinants of health that impacted care today? How? (Homelessness, low income, unemployed, alcoholism, drug addiction, transportatio n, low edu. Level, literacy, decrease access to med. care, [facility], rehab)? @ -none Was there de-escalation of care discussed even if they declined (Discuss DNR or withdrawal of care, Hospice)? DNR status @ -no What co-morbidities impacted this encounter? (DM, HTN, Smoking, COPD, CAD, Cancer, CVA, ARF, Chemo, Hep., AIDS, mental health diagnosis, sleep apnea, morbid obesity)? @ -none Was patient admitted / discharged? Hospital course, mention meds given and route, prescriptions, significant lab abnormalities, going to OR and other pertinent info. @ - Undiagnosed new problem with uncertain prognosis? @ -no Drug Therapy requiring intensive monitoring for toxicity (Heparin, Nitro, Insulin, Cardizem)? @ -no Were any procedures done? @ -no Diagnosis/symptom? @ - Acute, or Chronic, or Acute on Chronic? @ -Acute Uncomplicated (without systemic symptoms) or Complicated (systemic symptoms)? @ -Complicated Side effects of treatment? @ -no Exacerbation, Progression, or Severe Exacerbation? @ -exacerbation Poses a threat to life or bodily function? How? (Chest pain, [place], [place], pneumonia, PE, COPD, DKA, ARF, appy, cholecystitis, CVA, Diverticulitis, Homicidal, Suicidal, threat to staff... and all critical care pts) @ -yes Reevaluation #5: Differential Abdominal Pain Men: Appendicitis, cholecystitis, diverticulosis, ischemic bowel, pancreatitis, hepatitis, UTI, gastroenteritis, AAA, incarcerated hernia, bowel obstruction, constipation, inflammatory bowel, hepatitis, peptic ulcer disease, splenic infarction, perforated viscus, testicular torsion, this is not meant to be an all-inclusive list Medical Decision Making - Medical Decision Making 34 male to the ER for evaluation, recheck for abdominal pain, medication refill no severe abdominal pain nausea no vomiting this is just chronic IBS in nature, patient is here for medication refill and states he will be seeing a GI doctor hopefully soon as he just reinstated his insurance Disposition Clinical Impression: Chronic abdominal pain Disposition: HOME SELF-CARE Condition: Fair Instructions (If sedation given, give patient instructions): Abdominal Pain (ED) Is patient prescribed a controlled substance at d/c from ED?: No Referrals: Sumeet Mejias III, MD [Primary Care Provider] - 1-2 days Time of Disposition: 23:55
[2025-01-07] MEDS: ACET/COD 300 MG/30 MG STARTER PACK 6 TAB BTL PO STA (00:04)
[2025-01-07] MEDS: HYDROmorphone 1 MG/ML 1 ML SYRINGE IM STA (00:05)
== END 2025-01-07 00:33 | disposition home or self-care (01) ==
LOC: EC 23:24
DX: G89.29 Other chronic pain (principal); R10.9 Unspecified abdominal pain; Z76.0 Encounter for issue of repeat prescription; Z87.891 Personal history of nicotine dependence; Z88.8 Allergy status to other drugs, medicaments and biological substances
CPT/HCPCS: 99283; 96372; J1171

== ENCOUNTER 2025-01-08 18:06 | Emergency (ER) | payer MEDICARE ==
[2025-01-08 18:27] VITALS: RESP 18
--- NOTE | 2025-01-08 18:48 | ED ---
General Adult HPI - General Chief complaint: Abdominal Pain Stated complaint: ibs Time Seen by Provider: 01/08/25 18:25 Source: patient, RN notes reviewed, old records reviewed Mode of arrival: ambulatory Limitations: no limitations - History of Present Illness Initial comments: This is a 34-year-old male who presents to the emergency department stating that he has diarrhea since this morning and he is able to drink and eat okay but he feels like he is going right through him. Patient states he has this quite often. Patient denied any abdominal pain to me andHowever he did mention to triage so asked him on 2 different occasions and he continued to say he did not have abdominal pain. He also told triage she was having diarrhea for 1 month and he told me that the diarrhea just started this morning. Patient has no fever history. Patient denies any vomiting or nausea. Patient denies any other symptoms at this time - Related Data Home Medications Medication Instructions Recorded Confirmed Nicotine 21Mg/24Hr Patch [Habitrol] 1 patch TRANSDERM HS 07/18/24 07/19/24 Previous Rx's Medication Instructions Recorded ALPRAZolam [Xanax] 0.5 mg PO TID PRN #9 tablet 07/18/24 Nicotine 14Mg/24Hr Patch [Habitrol] 1 patch TRANSDERM DAILY patch 07/21/24 Omeprazole [PriLOSEC] 20 mg PO AC-BRKFST 30 Days #30 cap 07/21/24 Ziprasidone [Geodon] 20 mg PO 1700 30 Days #30 cap 07/21/24 fluvoxaMINE MALEATE 50 mg PO BID 30 Days #60 tab 07/21/24 lamoTRIgine [LaMICtal] 100 mg PO DAILY 30 Days #30 tab 07/21/24 Loperamide HCl [Imodium A-D] 2 mg PO ONCE #30 tablet 07/29/24 Simethicone [Gas-X] 125 mg PO QID #40 capsule 07/30/24 diazePAM [Valium] 2 mg PO BID PRN 3 Days #6 tab 09/03/24 Dicyclomine [Bentyl] 20 mg PO TID #30 tablet 10/03/24 Metoclopramide [Reglan] 10 mg PO Q6H PRN #20 tab 10/13/24 Docusate [Colace] 100 mg PO DAILY PRN 14 Days #14 10/21/24 capsule Prochlorperazine [Compazine] 10 mg PO Q8H PRN #30 tab 01/01/25 Allergies Allergy/AdvReac Type Severity Reaction Status Date / Time aripiprazole [From Abilify] Allergy Unknown Agitation Verified 01/08/25 18:27 cariprazine [From Vraylar] Allergy Unknown Agitation Verified 01/08/25 18:27 citalopram [From Celexa] Allergy Unknown Agitation Verified 01/08/25 18:27 divalproex sodium Allergy Unknown Agitation Verified 01/08/25 18:27 [From Depakote] paroxetine [From Paxil] Allergy Unknown Agitation Verified 01/08/25 18:27 sertraline [From Zoloft] Allergy Unknown Agitation Verified 01/08/25 18:27 metoclopramide [From Reglan] Allergy Rash/Hives Verified 01/08/25 18:27 prochlorperazine Allergy Anaphylaxis Verified 01/08/25 18:27 [From Compazine] phenobarbital AdvReac Severe Rapid Verified 01/08/25 18:27 Heart Rate zolpidem tartrate AdvReac Unknown Altered Verified 01/08/25 18:27 [From Ambien] Mental Status dicyclomine [From Bentyl] AdvReac Rapid Verified 01/08/25 18:27 Heart Rate diphenhydramine AdvReac Hallucinati Verified 01/08/25 18:27 [From Benadryl] ons estropipate [From Ogen 2.5] AdvReac Twitching Verified 01/08/25 18:27 of Legs haloperidol [From Haldol] AdvReac Agitation Verified 01/08/25 18:27 ketorolac [From Toradol] AdvReac Unknown Verified 01/08/25 18:27 lorazepam [From Ativan] AdvReac Hallucinati Verified 01/08/25 18:27 ons methylprednisolone AdvReac Altered Verified 01/08/25 18:27 [From Solu-Medrol] Mental Status ondansetron [From Zofran] AdvReac Unknown Verified 01/08/25 18:27 Review of Systems ROS Statement: Those systems with pertinent positive or pertinent negative responses have been documented in the HPI. ROS Other: All systems not noted in ROS Statement are negative. 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 PT IS ABLE TO MAKE DECISIONS FOR HIMSELF,IBS History of Any Multi-Drug Resistant Organisms: None Reported Past Surgical History: Tonsillectomy Additional Past Surgical History / Comment(s): wisdom teeth removed. Past Anesthesia/Blood Transfusion Reactions: No Reported Reaction Additional Past Anesthesia/Blood Transfusion Reaction / Comment(s): NEVER HAD BLOOD TRANSFUSION Past Psychological History: ADD/ADHD, Anxiety, Bipolar, Depression, PTSD Smoking Status: Former smoker Past Alcohol Use History: None Reported Past Drug Use History: None Reported - Past Family History Sister(s) Additional Family Medical History / Comment(s): He has one sister that is healthy. He also has a 4-year-old daughter that is healthy. Father Family Medical History: GERD/Reflux Additional Family Medical History / Comment(s): DAD HAS ALSO NEVER BEEN AN ALCOHOLIC-RARELY, RARELY DRINKS. Mother Family Medical History: Cancer Additional Family Medical History / Comment(s): MOM STATES SHE HAS NEVER BEEN AN ALCOHOLIC-MOM RARELY ,RARELY DRINKS. HX THYROID CANCER General Exam - General Exam Comments Initial Comments: GENERAL: Patient is well-developed and well-nourished. Patient is nontoxic and well- hydrated and is in no acute distress. ENT: Neck is soft and supple. No significant lymphadenopathy is noted. Oropharynx is clear. Moist mucous membranes. Neck has full range of motion without eliciting any pain. EYES: The sclera were anicteric and conjunctiva were pink and moist. Extraocular movements were intact and pupils were equal round and reactive to light. Eyelids were unremarkable. PULMONARY: Unlabored respirations. Good breath sounds bilaterally. No audible rales rhonchi or wheezing was noted. CARDIOVASCULAR: There is a regular rate and rhythm without any murmurs gallops or rubs. ABDOMEN: Soft and nontender with normal bowel sounds. I palpated him everywhere and was unable to elicit any pain SKIN: Skin is clear with no lesions or rashes and otherwise unremarkable. NEUROLOGIC: Patient is alert and oriented x3. Cranial nerves II through XII are grossly intact. Motor and sensory are also intact. Normal speech, volume and content. Symmetrical smile. MUSCULOSKELETAL: Normal extremities with adequate strength and full range of motion. LYMPHATICS: No significant lymphadenopathy is noted PSYCHIATRIC: Normal psychiatric evaluation. Limitations: no limitations Course Vital Signs 01/08/25 18:23 Temperature 98.2 F Pulse Rate 110 H Respiratory 18 Rate Blood Pressure 122/64 O2 Sat by Pulse 97 Oximetry Medical Decision Making - Medical Decision Making Was pt. sent in by a medical professional or institution (LINO Patel, TIRE BUSTER, urgent care, hospital, or [place] [facility]...) When possible be specific @ -No Did you speak to anyone other than the patient for history (EMS, parent, family, police, friend...)? What history was obtained from this source @ -No Did you review nursing and triage notes (agree or disagree)? Why? @ -I reviewed and agree with nursing and triage notes Were old charts reviewed (outside hosp., previous admission, EMS record, old EKG, old radiological studies, urgent care reports/EKG's, [place] [facility] records)? Report findings @ -No old charts were reviewed Differential Diagnosis? @ -Acute diarrhea, IBS, colitis, gastroenteritis, this is not an all-inclusive list EKG interpreted by me (3pts min.). @ -As above X-rays interpreted by me (1pt min.). @ -None done CT interpreted by me (1pt min.). @ -None done U/S interpreted by me (1pt. min.). @ -None done What testing was considered but not performed or refused? (CT, X-rays, U/S, labs)? Why? @ -None What meds were considered but not given or refused? Why? @ -None Did you discuss the management of the patient with other professionals (professionals i.e. LINO Patel, TIRE BUSTER, lab, RT, psych nurse, social worker health services, electrician supervisor substation, teacher, home lending officer, case management director)? Give summary @ -No Was smoking cessation discussed for >3mins.? @ -No Was critical care preformed (if so, how long)? @ -No Were there social determinants of health that impacted care today? How? (Homelessness, low income, unemployed, alcoholism, drug addiction, transportation, low edu. Level, literacy, decrease access to med. care, group home, rehab)? @ -No Was there de-escalation of care discussed even if they declined (Discuss DNR or withdrawal of care, Hospice)? DNR status @ -No What co-morbidities impacted this encounter? (DM, HTN, Smoking, COPD, CAD, Cancer, CVA, ARF, Chemo, Hep., AIDS, mental health diagnosis, sleep apnea, morbid obesity)? @ -None Was patient admitted / discharged? Hospital course, mention meds given and route, prescriptions, significant lab abnormalities, going to OR and other pertinent info. @ -Patient's story was inconsistent from triage to myself however for me the patient did not complain of any abdominal pain he had no abdominal pain on palpation his concern was that he had diarrhea since this morning he felt like anything he eat would go through him. Patient states he was able to eat and drink just fine and would continue to do so. Patient was given a Lomotil in the emergency department sent home with a few Lomotil to take as needed only if he has diarrhea Undiagnosed new problem with uncertain prognosis? @ -No Drug Therapy requiring intensive monitoring for toxicity (Heparin, Nitro, Insulin, Cardizem)? @ -No Were any procedures done? @ -No Diagnosis/symptom? @ -Diarrhea Acute, or Chronic, or Acute on Chronic? @ -Acute Uncomplicated (without systemic symptoms) or Complicated (systemic symptoms)? @ -Uncomplicated Side effects of treatment? @ -No Exacerbation, Progression, or Severe Exacerbation? @ -No Poses a threat to life or bodily function? How? (Chest pain, [place], [place], pneumonia, PE, COPD, DKA, ARF, appy, cholecystitis, CVA, Diverticulitis, Homicidal, Suicidal, threat to staff... and all critical care pts) @ -No Disposition Clinical Impression: Acute diarrhea Disposition: HOME SELF-CARE Condition: Good Instructions (If sedation given, give patient instructions): Acute Diarrhea (ED) Additional Instructions: Patient should take Lomotil only if he is having diarrhea 1 pill at a time Is patient prescribed a controlled substance at d/c from ED?: No Referrals: Sumeet Mejias III, MD [Primary Care Provider] - 1-2 days Time of Disposition: 18:48
[2025-01-08] MEDS: DIPHENOX-ATROP 2.5-0.025 MG 1 EACH TAB PO STA (19:07)
[2025-01-08] MEDS: DIPHENOX-ATROP STARTER PACK 8 TAB BTL PO STA (19:10)
[2025-01-08 19:22] VITALS: BP 124/70; PULSE 96; TEMP 98.3
== END 2025-01-08 19:22 | disposition home or self-care (01) ==
LOC: EC 18:06
DX: R19.7 Diarrhea, unspecified (principal); Z88.8 Allergy status to other drugs, medicaments and biological substances; Z88.6 Allergy status to analgesic agent; Z87.891 Personal history of nicotine dependence
CPT/HCPCS: 99283

== ENCOUNTER 2025-01-09 00:58 | Emergency (ER) | payer MEDICARE ==
[2025-01-09 01:02] VITALS: BP 108/64; PULSE 108; RESP 18; TEMP 98.4
--- NOTE | 2025-01-09 01:05 | ED ---
Recheck HPI - General Chief Complaint: Abdominal Pain Stated Complaint: Abd pain Time Seen by Provider: 01/09/25 01:05 Source: patient, RN notes reviewed, old records reviewed Mode of arrival: ambulatory Limitations: no limitations - History of Present Illness Initial Comments: This is a 34-year-old male well-known to this emergency department coming in for evaluation of abdominal pain chronic abdominal pain Crohn's disease. Irritable bowel syndrome. Patient does have some developmental delay and psychiatric illness. Patient has multiple ER visits in the past week for similar complaints MD Complaint: medication refill request -: week(s) Returns Today for: persistent/worsening pain related to initial visit Symptoms Since Prior Visit: worsening pain Context: planned re-check Associated Symptoms: none Treatments Prior to Arrival: Given Pain Meds on - Related Data Home Medications Medication Instructions Recorded Confirmed Nicotine 21Mg/24Hr Patch [Habitrol] 1 patch TRANSDERM HS 07/18/24 07/19/24 Previous Rx's Medication Instructions Recorded ALPRAZolam [Xanax] 0.5 mg PO TID PRN #9 tablet 07/18/24 Nicotine 14Mg/24Hr Patch [Habitrol] 1 patch TRANSDERM DAILY patch 07/21/24 Omeprazole [PriLOSEC] 20 mg PO AC-BRKFST 30 Days #30 cap 07/21/24 Ziprasidone [Geodon] 20 mg PO 1700 30 Days #30 cap 07/21/24 fluvoxaMINE MALEATE 50 mg PO BID 30 Days #60 tab 07/21/24 lamoTRIgine [LaMICtal] 100 mg PO DAILY 30 Days #30 tab 07/21/24 Loperamide HCl [Imodium A-D] 2 mg PO ONCE #30 tablet 07/29/24 Simethicone [Gas-X] 125 mg PO QID #40 capsule 07/30/24 diazePAM [Valium] 2 mg PO BID PRN 3 Days #6 tab 09/03/24 Dicyclomine [Bentyl] 20 mg PO TID #30 tablet 10/03/24 Metoclopramide [Reglan] 10 mg PO Q6H PRN #20 tab 10/13/24 Docusate [Colace] 100 mg PO DAILY PRN 14 Days #14 10/21/24 capsule Prochlorperazine [Compazine] 10 mg PO Q8H PRN #30 tab 01/01/25 Allergies Allergy/AdvReac Type Severity Reaction Status Date / Time aripiprazole [From Abilify] Allergy Unknown Agitation Verified 01/09/25 01:02 cariprazine [From Vraylar] Allergy Unknown Agitation Verified 01/09/25 01:02 citalopram [From Celexa] Allergy Unknown Agitation Verified 01/09/25 01:02 divalproex sodium Allergy Unknown Agitation Verified 01/09/25 01:02 [From Depakote] paroxetine [From Paxil] Allergy Unknown Agitation Verified 01/09/25 01:02 sertraline [From Zoloft] Allergy Unknown Agitation Verified 01/09/25 01:02 metoclopramide [From Reglan] Allergy Rash/Hives Verified 01/09/25 01:02 prochlorperazine Allergy Anaphylaxis Verified 01/09/25 01:02 [From Compazine] phenobarbital AdvReac Severe Rapid Verified 01/09/25 01:02 Heart Rate zolpidem tartrate AdvReac Unknown Altered Verified 01/09/25 01:02 [From Ambien] Mental Status dicyclomine [From Bentyl] AdvReac Rapid Verified 01/09/25 01:02 Heart Rate diphenhydramine AdvReac Hallucinati Verified 01/09/25 01:02 [From Benadryl] ons estropipate [From Ogen 2.5] AdvReac Twitching Verified 01/09/25 01:02 of Legs haloperidol [From Haldol] AdvReac Agitation Verified 01/09/25 01:02 ketorolac [From Toradol] AdvReac Unknown Verified 01/09/25 01:02 lorazepam [From Ativan] AdvReac Hallucinati Verified 01/09/25 01:02 ons methylprednisolone AdvReac Altered Verified 01/09/25 01:02 [From Solu-Medrol] Mental Status ondansetron [From Zofran] AdvReac Unknown Verified 01/09/25 01:02 Review of Systems ROS Statement: Those systems with pertinent positive or pertinent negative responses have been documented in the HPI. ROS Other: All systems not noted in ROS Statement are negative. 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 PT IS ABLE TO MAKE DECISIONS FOR HIMSELF,IBS History of Any Multi-Drug Resistant Organisms: None Reported Past Surgical History: Tonsillectomy Additional Past Surgical History / Comment(s): wisdom teeth removed. Past Anesthesia/Blood Transfusion Reactions: No Reported Reaction Additional Past Anesthesia/Blood Transfusion Reaction / Comment(s): NEVER HAD BLOOD TRANSFUSION Past Psychological History: ADD/ADHD, Anxiety, Bipolar, Depression, PTSD Smoking Status: Former smoker Past Alcohol Use History: None Reported Past Drug Use History: None Reported - Past Family History Sister(s) Additional Family Medical History / Comment(s): He has one sister that is healthy. He also has a 4-year-old daughter that is healthy. Father Family Medical History: GERD/Reflux Additional Family Medical History / Comment(s): DAD HAS ALSO NEVER BEEN AN ALCOHOLIC-RARELY, RARELY DRINKS. Mother Family Medical History: Cancer Additional Family Medical History / Comment(s): MOM STATES SHE HAS NEVER BEEN AN ALCOHOLIC-MOM RARELY ,RARELY DRINKS. HX THYROID CANCER General Exam Limitations: no limitations General appearance: alert, in no apparent distress Head exam: Present: atraumatic, normocephalic, normal inspection Eye exam: Present: normal appearance, PERRL, EOMI. Absent: scleral icterus, conjunctival injection, periorbital swelling ENT exam: Present: normal exam, mucous membranes moist Neck exam: Present: normal inspection. Absent: tenderness, meningismus, lymphadenopathy Respiratory exam: Present: normal lung sounds bilaterally. Absent: respiratory distress, wheezes, rales, rhonchi, stridor Cardiovascular Exam: Present: regular rate, normal rhythm, normal heart sounds. Absent: systolic murmur, diastolic murmur, rubs, gallop, clicks GI/Abdominal exam: Present: soft, normal bowel sounds. Absent: distended, tenderness, guarding, rebound, rigid Extremities exam: Present: normal inspection, full ROM, normal capillary refill. Absent: tenderness, pedal edema, joint swelling, calf tenderness Back exam: Present: normal inspection Neurological exam: Present: alert, oriented X3, CN II-XII intact Psychiatric exam: Present: normal affect, normal mood Skin exam: Present: warm, dry, intact, normal color. Absent: rash Course Vital Signs 01/09/25 00:59 Temperature 98.4 F Pulse Rate 108 H Respiratory 18 Rate Blood Pressure 108/64 O2 Sat by Pulse 97 Oximetry - Reevaluation(s) Reevaluation #1: 01/09/25 01:14 Medical records reviewed Reevaluation #2: 01/09/25 01:14 Patient symptoms improved Reevaluation #3: 01/09/25 01:14 Patient informed of results questions answered Reevaluation #4: Was pt. sent in by a medical professional or institution (LINO Patel, ANESTHESIOLOGY RESIDENT, urgent care, hospital, or long-term...) When possible be specific @ -no Did you speak to anyone other than the patient for history (EMS, parent, family, police, friend...)? What history was obtained from this source @ -no Did you review nursing and triage notes (agree or disagree)? Why? @ -agree Are old charts reviewed (outside hosp., previous admission, EMS record, old EKG, old radiological studies, urgent care reports/EKG's, long-term records)? Report findings @ -yes Differential Diagnosis (chest pain, altered mental status, abdominal pain women, abdominal pain men, vaginal bleeding, weakness, fever, dyspnea, syncope, headache, dizziness, GI bleed, back pain, seizure, CVA, palpatations, mental health, musculoskeletal)? @ -prior EKG interpreted by me (3pts min.). @ -yes X-rays interpreted by me (1pt min.). @ -yes negative for acute disease CT interpreted by me (1pt min.). @ -no U/S interpreted by me (1pt. min.). @ -no What testing was considered but not performed or refused? (CT, X-rays, U/S, labs)? Why? @ -none What meds were considered but not given or refused? Why? @ -none Did you discuss the management of the patient with other professionals (professionals i.e. LINO Patel, ANESTHESIOLOGY RESIDENT, lab, RT, psych nurse, rn social work, licensed vocational nurse, teacher, chief wellness officer, correctional casework specialist)? Give summary @ -no Was smoking cessation discussed for >3mins.? @ -no Was critical care preformed (if so, how long)? @ -no Were there social determinants of health that impacted care today? How? (Homelessness, low income, unemployed, alcoholism, drug addiction, transportation, low edu. Level, literacy, decrease access to med. care, fci, rehab)? @ -none Was there de-escalation of care discussed even if they declined (Discuss DNR or withdrawal of care, Hospice)? DNR status @ -no What co-morbidities impacted this encounter? (DM, HTN, Smoking, COPD, CAD, Cancer, CVA, ARF, Chemo, Hep., AIDS, mental health diagnosis, sleep apnea, morbid obesity)? @ -none Was patient admitted / discharged? Hospital course, mention meds given and route, prescriptions, significant lab abnormalities, going to OR and other pertinent info. @ - Undiagnosed new problem with uncertain prognosis? @ -no Drug Therapy requiring intensive monitoring for toxicity (Heparin, Nitro, Insulin, Cardizem)? @ -no Were any procedures done? @ -no Diagnosis/symptom? @ - Acute, or Chronic, or Acute on Chronic? @ -Acute Uncomplicated (without systemic symptoms) or Complicated (systemic symptoms)? @ -Complicated Side effects of treatment? @ -no Exacerbation, Progression, or Severe Exacerbation? @ -exacerbation Poses a threat to life or bodily function? How? (Chest pain, USA, IA, pneumonia, PE, COPD, DKA, ARF, appy, cholecystitis, CVA, Diverticulitis, Homicidal, Suicidal, threat to staff... and all critical care pts) @ -yes Reevaluation #5: Differential Abdominal Pain Men: Appendicitis, cholecystitis, diverticulosis, ischemic bowel, pancreatitis, hepatitis, UTI, gastroenteritis, AAA, incarcerated hernia, bowel obstruction, constipation, inflammatory bowel, hepatitis, peptic ulcer disease, splenic infarction, perforated viscus, testicular torsion, this is not meant to be an all-inclusive list Medical Decision Making - Medical Decision Making 34 male to ER with acute on chronic abdominal pain. Pain controlled patient be discharged home Disposition Clinical Impression: Chronic abdominal pain Disposition: HOME SELF-CARE Condition: Fair Instructions (If sedation given, give patient instructions): Abdominal Pain (ED) Is patient prescribed a controlled substance at d/c from ED?: No Referrals: Sumeet Mejias III, MD [Primary Care Provider] - 1-2 days Time of Disposition: 01:20
[2025-01-09] MEDS: traMADol 50 MG STARTER PACK 3 TAB BTL PO STA (01:28)
[2025-01-09] MEDS: HYDROmorphone 2 MG TAB PO ONE (01:49)
[2025-01-09 01:53] LABS: Amorphous Sediment,Urine Rare /hpf; Appearance,Urine Clear (Clear); Bilirubin,Urine Negative (Negative); Blood,Urine Negative (Negative); Color,Urine Yellow; Glucose,Urine (UA) Negative (Negative); Hyaline Casts,Urine 14 /lpf (0-2); Ketones,Urine Negative (Negative); Leukocyte Esterase,Urine Negative (Negative); Mucus,Urine Many /hpf; Nitrite,Urine Negative (Negative); Protein,Urine 1+ (Negative); RBC,Urine 9 /hpf (0-5); Specific Gravity,Urine 1.032 (1.001-1.035); Squamous Epithelial Cell,Urine <1 /hpf (0-4); WBC,Urine 10 /hpf (0-5)
== END 2025-01-09 01:51 | disposition home or self-care (01) ==
LOC: EC 00:58
DX: R10.9 Unspecified abdominal pain (principal); G89.29 Other chronic pain; Z87.891 Personal history of nicotine dependence; Z88.1 Allergy status to other antibiotic agents; Z88.6 Allergy status to analgesic agent; Z88.5 Allergy status to narcotic agent; Z88.8 Allergy status to other drugs, medicaments and biological substances
CPT/HCPCS: 81001; 99284

== ENCOUNTER 2025-01-10 01:43 | Emergency (ER) | payer MEDICARE ==
[2025-01-10 01:48] VITALS: RESP 18
[2025-01-10] MEDS: HYDROmorphone 1 MG/ML 1 ML SYRINGE IVP STA (03:48)
[2025-01-10 03:49] LABS: Basophils # (A) 0.04 10*3/uL (0.00-0.10); Basophils % (A) 0.6 %; Eosinophils % (A) 1.5 %; HCT 43.2 % (39.6-50.0); Lymphocytes # (A) 2.36 10*3/uL (0.90-5.00); MCH 31.3 pg (27.0-32.0); MCHC 34.7 g/dL (32.0-37.0); Mean Platelet Volume 10.8 fL (9.5-12.2); Monocytes # (A) 0.42 10*3/uL (0.20-1.00); Monocytes % (A) 6.2 %; Neutrophils # (A) 3.81 10*3/uL (1.80-7.70); Neutrophils % (A) 56.6 %; Platelet Count 188 10*3/uL (140-440); RDW 14.4 % (11.5-14.5); WBC 6.74 10*3/uL (4.50-10.00)
--- NOTE | 2025-01-10 03:52 | ED ---
Abdominal Pain HPI - General Chief Complaint: Abdominal Pain Stated Complaint: abd pain Time Seen by Provider: 01/10/25 02:04 Source: patient Mode of arrival: ambulatory Limitations: no limitations - History of Present Illness Initial Comments: 34-year-old male presenting with chief complaint of abdominal pain. The abdominal pain is chronic in nature. Patient has been seen here multiple occasions for abdominal pain and has had multiple workups for such. He has history of IBS. No nausea vomiting or diarrhea. No hematochezia or melena. No fever or chills. No urinary symptoms. He is requesting pain medication. - Related Data Home Medications Medication Instructions Recorded Confirmed Nicotine 21Mg/24Hr Patch [Habitrol] 1 patch TRANSDERM HS 07/18/24 07/19/24 Previous Rx's Medication Instructions Recorded ALPRAZolam [Xanax] 0.5 mg PO TID PRN #9 tablet 07/18/24 Nicotine 14Mg/24Hr Patch [Habitrol] 1 patch TRANSDERM DAILY patch 07/21/24 Omeprazole [PriLOSEC] 20 mg PO AC-BRKFST 30 Days #30 cap 07/21/24 Ziprasidone [Geodon] 20 mg PO 1700 30 Days #30 cap 07/21/24 fluvoxaMINE MALEATE 50 mg PO BID 30 Days #60 tab 07/21/24 lamoTRIgine [LaMICtal] 100 mg PO DAILY 30 Days #30 tab 07/21/24 Loperamide HCl [Imodium A-D] 2 mg PO ONCE #30 tablet 07/29/24 Simethicone [Gas-X] 125 mg PO QID #40 capsule 07/30/24 diazePAM [Valium] 2 mg PO BID PRN 3 Days #6 tab 09/03/24 Dicyclomine [Bentyl] 20 mg PO TID #30 tablet 10/03/24 Metoclopramide [Reglan] 10 mg PO Q6H PRN #20 tab 10/13/24 Docusate [Colace] 100 mg PO DAILY PRN 14 Days #14 10/21/24 capsule Prochlorperazine [Compazine] 10 mg PO Q8H PRN #30 tab 01/01/25 Allergies Allergy/AdvReac Type Severity Reaction Status Date / Time aripiprazole [From [facility]] Allergy Unknown Agitation Verified 01/10/25 01:47 cariprazine [From Vraylar] Allergy Unknown Agitation Verified 01/10/25 01:47 citalopram [From Celexa] Allergy Unknown Agitation Verified 01/10/25 01:47 divalproex sodium Allergy Unknown Agitation Verified 01/10/25 01:47 [From Depakote] paroxetine [From Paxil] Allergy Unknown Agitation Verified 01/10/25 01:47 sertraline [From Zoloft] Allergy Unknown Agitation Verified 01/10/25 01:47 metoclopramide [From Reglan] Allergy Rash/Hives Verified 01/10/25 01:47 prochlorperazine Allergy Anaphylaxis Verified 01/10/25 01:47 [From Compazine] phenobarbital AdvReac Severe Rapid Verified 01/10/25 01:47 Heart Rate zolpidem tartrate AdvReac Unknown Altered Verified 01/10/25 01:47 [From Ambien] Mental Status dicyclomine [From Bentyl] AdvReac Rapid Verified 01/10/25 01:47 Heart Rate diphenhydramine AdvReac Hallucinati Verified 01/10/25 01:47 [From Benadryl] ons estropipate [From Ogen 2.5] AdvReac Twitching Verified 01/10/25 01:47 of Legs haloperidol [From Haldol] AdvReac Agitation Verified 01/10/25 01:47 ketorolac [From Toradol] AdvReac Unknown Verified 01/10/25 01:47 lorazepam [From Ativan] AdvReac Hallucinati Verified 01/10/25 01:47 ons methylprednisolone AdvReac Altered Verified 01/10/25 01:47 [From Solu-Medrol] Mental Status ondansetron [From Zofran] AdvReac Unknown Verified 01/10/25 01:47 Review of Systems ROS Statement: Those systems with pertinent positive or pertinent negative responses have been documented in the HPI. ROS Other: All systems not noted in ROS Statement are negative. 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 PT IS A BLE TO MAKE DECISIONS FOR HIMSELF,IBS History of Any Multi-Drug Resistant Organisms: None Reported Past Surgical History: Tonsillectomy Additional Past Surgical History / Comment(s): wisdom teeth removed. Past Anesthesia/Blood Transfusion Reactions: No Reported Reaction Additional Past Anesthesia/Blood Transfusion Reaction / Comment(s): NEVER HAD BLOOD TRANSFUSION Past Psychological History: ADD/ADHD, Anxiety, Bipolar, Depression, PTSD Smoking Status: Former smoker Past Alcohol Use History: None Reported Past Drug Use History: None Reported - Past Family History Sister(s) Additional Family Medical History / Comment(s): He has one sister that is healthy. He also has a 4-year-old daughter that is healthy. Father Family Medical History: GERD/Reflux Additional Family Medical History / Comment(s): DAD HAS ALSO NEVER BEEN AN ALCOHOLIC-RARELY, RARELY DRINKS. Mother Family Medical History: Cancer Additional Family Medical History / Comment(s): MOM STATES SHE HAS NEVER BEEN AN ALCOHOLIC-MOM RARELY ,RARELY DRINKS. HX THYROID CANCER General Exam Limitations: no limitations General appearance: alert, in no apparent distress Head exam: Present: atraumatic, normocephalic, normal inspection Eye exam: Present: normal appearance, EOMI Neck exam: Present: normal inspection. Absent: meningismus Respiratory exam: Present: normal lung sounds bilaterally. Absent: respiratory distress, wheezes, rales, rhonchi, stridor Cardiovascular Exam: Present: regular rate, normal rhythm, normal heart sounds. Absent: systolic murmur, diastolic murmur, rubs, gallop, clicks GI/Abdominal exam: Present: soft, tenderness (Nonlocalized). Absent: distended, guarding, rebound, rigid Neurological exam: Present: alert, oriented X3 Psychiatric exam: Present: normal affect, normal mood Skin exam: Present: warm, dry, normal color Course Vital Signs 01/10/25 01/10/25 01:45 04:52 Temperature 99.8 F H 98.0 F Pulse Rate 102 H 89 Respiratory 18 18 Rate Blood Pressure 153/86 124/78 O2 Sat by Pulse 96 99 Oximetry Medical Decision Making - Medical Decision Making Was pt. sent in by a medical professional or institution (, PA, ORDER ENTRY CLERK, urgent care, hospital, or [facility]...) When possible be specific @ -No Did you speak to anyone other than the patient for history (EMS, parent, family, police, friend...)? What history was obtained from this source @ -No Did you review nursing and triage notes (agree or disagree)? Why? @ -I reviewed and agree with nursing and triage notes Were old charts reviewed (outside hosp., previous admission, EMS record, old EKG, old radiological studies, urgent care reports/EKG's, [facility] records)? Report findings @ -No old charts were reviewed Differential Diagnosis (chest pain, altered mental status, abdominal pain women, abdominal pain men, vaginal bleeding, weakness, fever, dyspnea, syncope, headache, dizziness, GI bleed, back pain, seizure, CVA, palpatations, mental health, musculoskeletal)? @ -MDM Differential Abdominal Pain Men: Appendicitis, cholecystitis, diverticulosis, ischemic bowel, pancreatitis, hepatitis, UTI, gastroenteritis, AAA, incarcerated hernia, bowel obstruction, constipation, inflammatory bowel, hepatitis, peptic ulcer disease, splenic infarction, perforated viscus, testicular torsion... This is not meant to be an all-inclusive list EKG interpreted by me (3pts min.). @ -As above X-rays interpreted by me (1pt min.). @ -None done CT interpreted by me (1pt min.). @ -None done U/S interpreted by me (1pt. min.). @ -None done What testing was considered but not performed or refused? (CT, X-rays, U/S, labs)? Why? @ -None What meds were considered but not given or refused? Why? @ -None Did you discuss the management of the patient with other professionals (professionals i.e. , PA, ORDER ENTRY CLERK, lab, RT, psych nurse, social science instructor, vice president payment, teacher, protocol officer, comp field case manager)? Give summary @ -No Was smoking cessation discussed for >3mins.? @ -No Was critical care preformed (if so, how long)? @ -No Were there social determinants of health that impacted care today? How? (Homelessness, low income, unemployed, alcoholism, drug addiction, transportation, low edu. Level, literacy, decrease access to med. care, fpc, rehab)? @ -No Was there de-escalation of care discussed even if they declined (Discuss DNR or withdrawal of care, Hospice)? DNR status @ -No What co-morbidities impacted this encounter? (DM, HTN, Smoking, COPD, CAD, Cancer, CVA, ARF, Chemo, Hep., AIDS, mental health diagnosis, sleep apnea, morbid obesity)? @ -None Was patient admitted / discharged? Hospital course, mention meds given and route, prescriptions, significant lab abnormalities, going to OR and other pertinent info. @ -34-year-old male with history of IBS presenting with chief complaint of abdominal pain. History of chronic abdominal pain. Lab work requires no action. Patient reports improvement after pain medication. He is educated on today's findings. Follow-up with PCP. Report back to ER with any new or worsening symptoms. Discussed return parameters and answered all questions. Patient conveyed verbal understanding and agreed to the plan. I discussed this case in detail with my attending Dr. Ordonez Undiagnosed new problem with uncertain prognosis? @ -No Drug Therapy requiring intensive monitoring for toxicity (Heparin, Nitro, Insulin, Cardizem)? @ -No Were any procedures done? @ -No Diagnosis/symptom? @ -Abdominal pain Acute, or Chronic, or Acute on Chronic? @ -Acute on chronic Uncomplicated (without systemic symptoms) or Complicated (systemic symptoms)? @ -Uncomplicated Side effects of treatment? @ -No Exacerbation, Progression, or Severe Exacerbation? @ -No Poses a threat to life or bodily function? How? (Chest pain, USA, ID, pneumonia, PE, COPD, DKA, ARF, appy, cholecystitis, CVA, Diverticulitis, Homicidal, Suicidal, threat to staff... and all critical care pts) @ -No - Lab Data Result diagrams: 01/10/25 03:30 01/10/25 03:30 Lab Results 01/10/25 01/10/25 Range/Units 03:30 03:30 WBC 6.74 (4.50-10.00) 10*3/uL RBC 4.80 (4.40-5.60) 10*6/uL Hgb 15.0 (13.0-17.0) g/dL Hct 43.2 (39.6-50.0) % MCV 90.0 (80.0-97.0) fL MCH 31.3 (27.0-32.0) pg MCHC 34.7 (32.0-37.0) g/dL Plt Count 188 (140-440) 10*3/uL MPV 10.8 (9.5-12.2) fL Immature Gran % (Auto) 0.1 % Neutrophils % 56.6 % Lymphocytes % 35.0 % Monocytes % 6.2 % Eosinophils % 1.5 % Basophils % 0.6 % Immature Gran # 0.01 (0.00-0.04) 10*3/uL Neutrophils # 3.81 (1.80-7.70) 10*3/uL Lymphocytes # 2.36 (0.90-5.00) 10*3/uL Monocytes # 0.42 (0.20-1.00) 10*3/uL Eosinophils # 0.10 (0.04-0.35) 10*3/uL Basophils # 0.04 (0.00-0.10) 10*3/uL Sodium 138 (137-145) mmol/L Potassium 5.1 (3.5-5.1) mmol/L Chloride 101 (98-107) mmol/L Carbon Dioxide 25 (22-30) mmol/L Anion Gap 12 mmol/L BUN 18 (9-20) mg/dL Creatinine 0.66 (0.66-1.25) mg/dL Est GFR (CKD-EPI)AfAm >90 (>60 ml/min/1.73 sqM) Est GFR (CKD-EPI)NonAf >90 (>60 ml/min/1.73 sqM) Glucose 84 (74-99) mg/dL Calcium 10.6 H (8.4-10.2) mg/dL Total Bilirubin 1.5 H (0.2-1.3) mg/dL AST 29 (17-59) U/L ALT 17 (4-49) U/L Alkaline Phosphatase 65 (38-126) U/L Total Protein 8.2 (6.3-8.2) g/dL Albumin 5.5 H (3.5-5.0) g/dL Disposition Clinical Impression: Abdominal pain Disposition: HOME SELF-CARE Condition: Good Instructions (If sedation given, give patient instructions): Abdominal Pain (ED) Additional Instructions: Follow-up with PCP and GI. Report back to ER with any new or worsening symptoms. Is patient prescribed a controlled substance at d/c from ED?: No Referrals: Sumeet Mejias III, MD [Primary Care Provider] - 1-2 days
[2025-01-10 04:05] LABS: ALT 17 U/L (4-49); AST 29 U/L (17-59); African American GFR (CKD) >90 (>60 ml/min/1.73 sqM); Albumin 5.5 g/dL (3.5-5.0); Anion Gap 12 mmol/L; Blood Urea Nitrogen 18 mg/dL (9-20); Calcium 10.6 mg/dL (8.4-10.2); Carbon Dioxide 25 mmol/L (22-30); Chloride 101 mmol/L (98-107); Glucose 84 mg/dL (74-99); Non-African American GFR(CKD) >90 (>60 ml/min/1.73 sqM); Potassium 5.1 mmol/L (3.5-5.1); Sodium 138 mmol/L (137-145); Total Bilirubin 1.5 mg/dL (0.2-1.3); Total Protein 8.2 g/dL (6.3-8.2)
[2025-01-10 04:06] LABS: Alkaline Phosphatase 65 U/L (38-126)
[2025-01-10 04:57] VITALS: BP 124/78; PULSE 89; TEMP 98
[2025-01-10] MEDS: ACET/COD 300 MG/30 MG STARTER PACK 6 TAB BTL PO STA (04:57)
== END 2025-01-10 05:02 | disposition home or self-care (01) ==
LOC: EC 01:43
DX: G89.29 Other chronic pain (principal); R10.9 Unspecified abdominal pain; Z87.891 Personal history of nicotine dependence; Z88.8 Allergy status to other drugs, medicaments and biological substances; Z88.6 Allergy status to analgesic agent
CPT/HCPCS: 36415; 80053; 85025; 99284; 96374; J1171

== ENCOUNTER 2025-01-13 01:15 | Emergency (ER) | payer OTHER ==
[2025-01-13 01:21] VITALS: RESP 18; TEMP 97.8
[2025-01-13] MEDS: HYDROcodone/APAP 7.5-325MG 1 EACH TAB PO ONE (01:44)
--- NOTE | 2025-01-13 02:13 | ED ---
Abdominal Pain HPI - General Chief Complaint: Abdominal Pain Stated Complaint: Abd pain Time Seen by Provider: 01/13/25 01:24 Source: patient, RN notes reviewed Mode of arrival: ambulatory Limitations: no limitations - History of Present Illness Initial Comments: This is a 34-year-old male who is well-known to emergency department with a history of IBS presented emergency department with complaints of diffuse abdominal pain that started this afternoon. Patient states that he has diffuse abdominal pain described as a cramping sensation with associated diarrhea. He denies dark or tarry stools, bloody stools, urinary complaints, nausea, vomiting. States he was evaluated recently for similar symptoms. Was provided with a starter pack of Lomotil however states that Imodium works better for him and has been taking this and is decreased his quantity of diarrhea. Additionally, patient states that he is out of his prescription for [place] that is prescribed primary care provider. - Related Data Home Medications Medication Instructions Recorded Confirmed Nicotine 21Mg/24Hr Patch [Habitrol] 1 patch TRANSDERM HS 07/18/24 07/19/24 Previous Rx's Medication Instructions Recorded ALPRAZolam [Xanax] 0.5 mg PO TID PRN #9 tablet 07/18/24 Nicotine 14Mg/24Hr Patch [Habitrol] 1 patch TRANSDERM DAILY patch 07/21/24 Omeprazole [PriLOSEC] 20 mg PO AC-BRKFST 30 Days #30 cap 07/21/24 Ziprasidone [Geodon] 20 mg PO 1700 30 Days #30 cap 07/21/24 fluvoxaMINE MALEATE 50 mg PO BID 30 Days #60 tab 07/21/24 lamoTRIgine [LaMICtal] 100 mg PO DAILY 30 Days #30 tab 07/21/24 Loperamide HCl [Imodium A-D] 2 mg PO ONCE #30 tablet 07/29/24 Simethicone [Gas-X] 125 mg PO QID #40 capsule 07/30/24 diazePAM [Valium] 2 mg PO BID PRN 3 Days #6 tab 09/03/24 Dicyclomine [Bentyl] 20 mg PO TID #30 tablet 10/03/24 Metoclopramide [Reglan] 10 mg PO Q6H PRN #20 tab 10/13/24 Docusate [Colace] 100 mg PO DAILY PRN 14 Days #14 10/21/24 capsule Prochlorperazine [Compazine] 10 mg PO Q8H PRN #30 tab 01/01/25 Allergies Allergy/AdvReac Type Severity Reaction Status Date / Time aripiprazole [From Abilify] Allergy Unknown Agitation Verified 01/13/25 01:20 cariprazine [From Vraylar] Allergy Unknown Agitation Verified 01/13/25 01:20 citalopram [From Celexa] Allergy Unknown Agitation Verified 01/13/25 01:20 divalproex sodium Allergy Unknown Agitation Verified 01/13/25 01:20 [From Depakote] paroxetine [From Paxil] Allergy Unknown Agitation Verified 01/13/25 01:20 sertraline [From Zoloft] Allergy Unknown Agitation Verified 01/13/25 01:20 metoclopramide [From Reglan] Allergy Rash/Hives Verified 01/13/25 01:20 prochlorperazine Allergy Anaphylaxis Verified 01/13/25 01:20 [From Compazine] phenobarbital AdvReac Severe Rapid Verified 01/13/25 01:20 Heart Rate zolpidem tartrate AdvReac Unknown Altered Verified 01/13/25 01:20 [From Ambien] Mental Status dicyclomine [From Bentyl] AdvReac Rapid Verified 01/13/25 01:20 Heart Rate diphenhydramine AdvReac Hallucinati Verified 01/13/25 01:20 [From Benadryl] ons estropipate [From Ogen 2.5] AdvReac Twitching Verified 01/13/25 01:20 of Legs haloperidol [From Haldol] AdvReac Agitation Verified 01/13/25 01:20 ketorolac [From Toradol] AdvReac Unknown Verified 01/13/25 01:20 lorazepam [From Ativan] AdvReac Hallucinati Verified 01/13/25 01:20 ons methylprednisolone AdvReac Altered Verified 01/13/25 01:20 [From Solu-Medrol] Mental Status ondansetron [From Zofran] AdvReac Unknown Verified 01/13/25 01:20 Review of Systems ROS Statement: Those systems with pertinent positive or pertinent negative responses have been documented in the HPI. ROS Other: All systems not noted in ROS Statement are negative. 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 PT IS ABLE TO MAKE DECISIONS FOR HIMSELF,IBS History of Any Multi-Drug Resistant Organisms: None Reported Past Surgical History: Tonsillectomy Additional Past Surgical History / Comment(s): wisdom teeth removed. Past Anesthesia/Blood Transfusion Reactions: No Reported Reaction Additional Past Anesthesia/Blood Transfusion Reaction / Comment(s): NEVER HAD BLOOD TRANSFUSION Past Psychological History: ADD/ADHD, Anxiety, Bipolar, Depression, PTSD Smoking Status: Former smoker Past Alcohol Use History: None Reported Past Drug Use History: None Reported - Past Family History Sister(s) Additional Family Medical History / Comment(s): He has one sister that is h ealthy. He also has a 4-year-old daughter that is healthy. Father Family Medical History: GERD/Reflux Additional Family Medical History / Comment(s): DAD HAS ALSO NEVER BEEN AN ALCOHOLIC-RARELY, RARELY DRINKS. Mother Family Medical History: Cancer Additional Family Medical History / Comment(s): MOM STATES SHE HAS NEVER BEEN AN ALCOHOLIC-MOM RARELY ,RARELY DRINKS. HX THYROID CANCER General Exam Limitations: no limitations General appearance: alert, in no apparent distress, anxious ENT exam: Present: normal exam, mucous membranes moist Neck exam: Present: normal inspection. Absent: tenderness, meningismus, lymphadenopathy Respiratory exam: Present: normal lung sounds bilaterally. Absent: respiratory distress, wheezes, rales, rhonchi, stridor Cardiovascular Exam: Present: regular rate, normal rhythm, normal heart sounds. Absent: systolic murmur, diastolic murmur, rubs, gallop, clicks GI/Abdominal exam: Present: soft, normal bowel sounds. Absent: distended, tenderness, guarding, rebound, rigid Extremities exam: Present: normal inspection, full ROM, normal capillary refill. Absent: tenderness, pedal edema, joint swelling, calf tenderness Back exam: Present: normal inspection. Absent: CVA tenderness (R), CVA tenderness (L) Psychiatric exam: Present: depressed. Absent: agitated, manic, homicidal ideation, suicidal ideation Course Vital Signs 01/13/25 01/13/25 01:19 02:55 Temperature 97.8 F Pulse Rate 125 H 79 Respiratory 18 18 Rate Blood Pressure 115/89 113/69 O2 Sat by Pulse 97 98 Oximetry Medical Decision Making - Medical Decision Making Was pt. sent in by a medical professional or institution (LINO Patel, CAKE FROSTER, urgent care, hospital, or longterm...) When possible be specific @ -No Did you speak to anyone other than the patient for history (EMS, parent, family, police, friend...)? What history was obtained from this source @ -No Did you review nursing and triage notes (agree or disagree)? Why? @ -I reviewed and agree with nursing and triage notes Were old charts reviewed (outside hosp., previous admission, EMS record, old EKG, old radiological studies, urgent care reports/EKG's, longterm records)? Report findings @ -No old charts were reviewed Differential Diagnosis (chest pain, altered mental status, abdominal pain women, abdominal pain men, vaginal bleeding, weakness, fever, dyspnea, syncope, headache, dizziness, GI bleed, back pain, seizure, CVA, palpatations, mental health, musculoskeletal)? @ -Differential Abdominal Pain Men: Appendicitis, cholecystitis, diverticulosis, ischemic bowel, pancreatitis, hepatitis, UTI, gastroenteritis, AAA, incarcerated hernia, bowel obstruction, constipation, inflammatory bowel, hepatitis, peptic ulcer disease, splenic infarction, perforated viscus, testicular torsion, this is not meant to be an all-inclusive list EKG interpreted by me (3pts min.). @ -None X-rays interpreted by me (1pt min.). @ -X-ray [facility] unremarkable, mild stool burden. CT interpreted by me (1pt min.). @ -None done U/S interpreted by me (1pt. min.). @ -None done What testing was considered but not performed or refused? (CT, X-rays, U/S, labs)? Why? @ -None What meds were considered but not given or refused? Why? @ -None Did you discuss the management of the patient with other professionals (professionals i.e. LINO Patel, CAKE FROSTER, lab, RT, psych nurse, sr. social media & mobile manager, ent surgeon, teacher, guest relations officer, case briefer)? Give summary @ -Spoke with EPS nurse who has spoke with psychiatrist who was agreed to appropriate safety planning and compared to the patient self-harming behavior right with follow-up with [facility] in the morning. Was smoking cessation discussed for >3mins.? @ -No Was critical care preformed (if so, how long)? @ -No Were there social determinants of health that impacted care today? How? (Homelessness, low income, unemployed, alcoholism, drug addiction, transportation, low edu. Level, literacy, decrease access to med. care, penitentiary, rehab)? @ -No Was there de-escalation of care discussed even if they declined (Discuss DNR or withdrawal of care, Hospice)? DNR status @ -No What co-morbidities impacted this encounter? (DM, HTN, Smoking, COPD, CAD, Cancer, CVA, ARF, Chemo, Hep., AIDS, mental health diagnosis, sleep apnea, morbid obesity)? @ -None Was patient admitted / discharged? Hospital course, mention meds given and route, prescriptions, significant lab abnormalities, going to OR and other pertinent info. @ -Discharge. 34 male presenting with complaints of chronic abdominal pain. Patient is tearful on examination. While auscultating the abdomen with pressure there is no elicited pain however to palpation of the abdomen there is elicited pain. Patient is provided with home dose of [place]. X-ray of the abdomen is unremarkable. On reevaluation after medications patient states that he is feeling well. While patient is being prepared for discharge he expresses to nursing staff that he has been self harming by cutting his arms and has thoughts of wanting to harm himself. Patient is medically cleared for EPS evaluation. Patient has been cleared with a safety plan as appropriate [facility] follow-up in the morning. Case discussed with Dr. Brown Undiagnosed new problem with uncertain prognosis? @ -No Drug Therapy requiring intensive monitoring for toxicity (Heparin, Nitro, Insu peyman, Cardizem)? @ -No Were any procedures done? @ -No Diagnosis/symptom? @ -chronic abdominal pain, constipation, self-harming behavior Acute, or Chronic, or Acute on Chronic? @ -acute Uncomplicated (without systemic symptoms) or Complicated (systemic symptoms)? @ -uncomplicated Side effects of treatment? @ -No Exacerbation, Progression, or Severe Exacerbation? @ -No Poses a threat to life or bodily function? How? (Chest pain, USA, [place], pneumonia, PE, COPD, DKA, ARF, appy, cholecystitis, CVA, Diverticulitis, Homicidal, Suicidal, threat to staff... and all critical care pts) @ -No - Lab Data Lab Results 01/13/25 Range/Units 02:47 Influenza Type A (PCR) Not Detected (Not Detectd) Influenza Type B (PCR) Not Detected (Not Detectd) RSV (PCR) Not Detected (Not Detectd) SARS-CoV-2 (PCR) Not Detected (Not Detectd) Disposition Clinical Impression: Chronic abdominal pain, Self-harming behavior Disposition: HOME SELF-CARE Condition: Good Instructions (If sedation given, give patient instructions): Chronic Abdominal Pain (ED) Additional Instructions: Please return to the Emergency Department if symptoms worsen or any other concerns. Is patient prescribed a controlled substance at d/c from ED?: No Referrals: Sumeet Mejias III, MD [Primary Care Provider] - 1-2 days Time of Disposition: 02:12
[2025-01-13 02:57] VITALS: BP 113/69; PULSE 79
--- NOTE | 2025-01-13 03:13 | XR ---
EXAM: XR Abdomen, 1 View CLINICAL HISTORY: Diffuse ab pain TECHNIQUE: Frontal supine view of the abdomen/pelvis. COMPARISON: [facility] 10/15/2024 FINDINGS: Gastrointestinal tract: Scatter gas predominately nondilated colonic segments. Mild to moderate stool burden. Bones/joints: Unremarkable. No acute fracture. IMPRESSION: Nonspecific, nonobstructive bowel gas pattern. Mild to moderate stool burden.
[2025-01-13 03:29] LABS: Influenza A Not Detected (Not Detectd); Influenza B Not Detected (Not Detectd); RSV Not Detected (Not Detectd)
== END 2025-01-13 03:52 | disposition home or self-care (01) ==
LOC: EC 01:15
DX: R10.9 Unspecified abdominal pain (principal); G89.29 Other chronic pain; R45.88 Nonsuicidal self-harm; Z87.891 Personal history of nicotine dependence; Z88.1 Allergy status to other antibiotic agents; Z88.3 Allergy status to other anti-infective agents; Z88.5 Allergy status to narcotic agent; Z88.6 Allergy status to analgesic agent; Z88.8 Allergy status to other drugs, medicaments and biological substances
CPT/HCPCS: 74018; 82075; 87636; 99284

== ENCOUNTER 2025-01-14 10:03 | Emergency (ER) | payer MEDICARE, OTHER ==
--- NOTE | 2025-01-14 10:27 | ED ---
General Adult HPI - General Chief complaint: Abdominal Pain Stated complaint: ABD Pain Time Seen by Provider: 01/14/25 10:14 Source: patient, RN notes reviewed, old records reviewed Mode of arrival: ambulatory Limitations: no limitations - History of Present Illness Initial comments: Patient is a 34-year-old male presenting to the emergency department with concerns with abdominal pain. Patient has chronic abdominal pain from irritable bowel syndrome. Patient states that has been acting up again on him the past few days. Patient states he has been eating and drinking well. Patient has not been vomiting. Patient does have some loose stools. Patient is concerned he could be dehydrated and would like some fluids. - Related Data Home Medications Medication Instructions Recorded Confirmed Nicotine 21Mg/24Hr Patch [Habitrol] 1 patch TRANSDERM HS 07/18/24 07/19/24 Previous Rx's Medication Instructions Recorded ALPRAZolam [Xanax] 0.5 mg PO TID PRN #9 tablet 07/18/24 Nicotine 14Mg/24Hr Patch [Habitrol] 1 patch TRANSDERM DAILY patch 07/21/24 Omeprazole [PriLOSEC] 20 mg PO AC-BRKFST 30 Days #30 cap 07/21/24 Ziprasidone [Geodon] 20 mg PO 1700 30 Days #30 cap 07/21/24 fluvoxaMINE MALEATE 50 mg PO BID 30 Days #60 tab 07/21/24 lamoTRIgine [LaMICtal] 100 mg PO DAILY 30 Days #30 tab 07/21/24 Loperamide HCl [Imodium A-D] 2 mg PO ONCE #30 tablet 07/29/24 Simethicone [Gas-X] 125 mg PO QID #40 capsule 07/30/24 diazePAM [Valium] 2 mg PO BID PRN 3 Days #6 tab 09/03/24 Dicyclomine [Bentyl] 20 mg PO TID #30 tablet 10/03/24 Metoclopramide [Reglan] 10 mg PO Q6H PRN #20 tab 10/13/24 Docusate [Colace] 100 mg PO DAILY PRN 14 Days #14 10/21/24 capsule Prochlorperazine [Compazine] 10 mg PO Q8H PRN #30 tab 01/01/25 Allergies Allergy/AdvReac Type Severity Reaction Status Date / Time aripiprazole [From Abiliy] Allergy Unknown Agitation Verified 01/14/25 10:10 cariprazine [From Vraylar] Allergy Unknown Agitation Verified 01/14/25 10:10 citalopram [From Celexa] Allergy Unknown Agitation Verified 01/14/25 10:10 divalproex sodium Allergy Unknown Agitation Verified 01/14/25 10:10 [From Depakote] paroxetine [From Paxil] Allergy Unknown Agitation Verified 01/14/25 10:10 sertraline [From Zoloft] Allergy Unknown Agitation Verified 01/14/25 10:10 metoclopramide [From Reglan] Allergy Rash/Hives Verified 01/14/25 10:10 prochlorperazine Allergy Anaphylaxis Verified 01/14/25 10:10 [From Compazine] phenobarbital AdvReac Severe Rapid Verified 01/14/25 10:10 Heart Rate zolpidem tartrate AdvReac Unknown Altered Verified 01/14/25 10:10 [From Ambien] Mental Status dicyclomine [From Bentyl] AdvReac Rapid Verified 01/14/25 10:10 Heart Rate diphenhydramine AdvReac Hallucinati Verified 01/14/25 10:10 [From Benadryl] ons estropipate [From Ogen 2.5] AdvReac Twitching Verified 01/14/25 10:10 of Legs haloperidol [From Haldol] AdvReac Agitation Verified 01/14/25 10:10 ketorolac [From Toradol] AdvReac Unknown Verified 01/14/25 10:10 lorazepam [From Ativan] AdvReac Hallucinati Verified 01/14/25 10:10 ons methylprednisolone AdvReac Altered Verified 01/14/25 10:10 [From Solu-Medrol] Mental Status ondansetron [From Zofran] AdvReac Unknown Verified 01/14/25 10:10 Review of Systems ROS Statement: Those systems with pertinent positive or pertinent negative responses have been documented in the HPI. ROS Other: All systems not noted in ROS Statement are negative. 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 PT IS ABLE TO MAKE DECISIONS FOR HIMSELF,IBS History of Any Multi-Drug Resistant Organisms: None Reported Past Surgical History: Tonsillectomy Additional Past Surgical History / Comment(s): wisdom teeth removed. Past Anesthesia/Blood Transfusion Reactions: No Reported Reaction Additional Past Anesthesia/Blood Transfusion Reaction / Comment(s): NEVER HAD BLOOD TRANSFUSION Past Psychological History: ADD/ADHD, Anxiety, Bipolar, Depression, PTSD Smoking Status: Former smoker Past Alcohol Use History: None Reported Past Drug Use History: None Reported - Past Family History Sister(s) Additional Family Medical History / Comment(s): He has one sister that is healthy. He also has a 4-year-old daughter that is healthy. Father Family Medical History: GERD/Reflux Additional Family Medical History / Comment(s): DAD HAS ALSO NEVER BEEN AN ALCOHOLIC-RARELY, RARELY DRINKS. Mother Family Medical History: Cancer Additional Family Medical History / Comment(s): MOM STATES SHE HAS NEVER BEEN AN ALCOHOLIC-MOM RARELY ,RARELY DRINKS. HX THYROID CANCER General Exam Limitations: no limitations General appearance: alert, in no apparent distress Head exam: Present: normocephalic Eye exam: Present: normal appearance Neck exam: Present: normal inspection Respiratory exam: Present: normal lung sounds bilaterally Cardiovascular Exam: Present: regular rate, normal rhythm GI/Abdominal exam: Present: soft, tenderness (Mild diffuse tenderness.) Extremities exam: Present: normal inspection. Absent: pedal edema, calf tenderness Neurological exam: Present: alert Psychiatric exam: Present: normal affect, normal mood Skin exam: Present: normal color Course Vital Signs 01/14/25 10:07 Temperature 98.0 F Pulse Rate 71 Respiratory 16 Rate Blood Pressure 114/74 O2 Sat by Pulse 94 L Oximetry Medical Decision Making - Medical Decision Making Was pt. sent in by a medical professional or institution (, PA, CLOTH DOUBLING MACHINE OPERATOR, urgent ca re, hospital, or jail...) When possible be specific @ -No Did you speak to anyone other than the patient for history (EMS, parent, family, police, friend...)? What history was obtained from this source @ -No Did you review nursing and triage notes (agree or disagree)? Why? @ -I reviewed and agree with nursing and triage notes Were old charts reviewed (outside hosp., previous admission, EMS record, old EKG, old radiological studies, urgent care reports/EKG's, jail records)? Report findings @ -Multiple previous charts reviewed Differential Diagnosis (chest pain, altered mental status, abdominal pain women, abdominal pain men, vaginal bleeding, weakness, fever, dyspnea, syncope, headache, dizziness, GI bleed, back pain, seizure, CVA, palpatations, mental health, musculoskeletal)? @ -Differential Abdominal Pain Men: Appendicitis, cholecystitis, diverticulosis, ischemic bowel, pancreatitis, hepatitis, UTI, gastroenteritis, AAA, incarcerated hernia, bowel obstruction, constipation, inflammatory bowel, hepatitis, peptic ulcer disease, splenic infarction, perforated viscus, testicular torsion, this is not meant to be an all-inclusive list EKG interpreted by me (3pts min.). @ -As above X-rays interpreted by me (1pt min.). @ -Abdominal x-ray shows no acute abnormality CT interpreted by me (1pt min.). @ -None done U/S interpreted by me (1pt. min.). @ -None done What testing was considered but not performed or refused? (CT, X-rays, U/S, labs)? Why? @ -None What meds were considered but not given or refused? Why? @ -None Did you discuss the management of the patient with other professionals (professionals i.e. , PA, CLOTH DOUBLING MACHINE OPERATOR, lab, RT, psych nurse, social insurance analyst, technology applications consultant, teacher, benefits officer, case resource manager)? Give summary @ -No Was smoking cessation discussed for >3mins.? @ -No Was critical care preformed (if so, how long)? @ -No Were there social determinants of health that impacted care today? How? (Homelessness, low income, unemployed, alcoholism, drug addiction, transportation, low edu. Level, literacy, decrease access to med. care, [facility], r ehab)? @ -No Was there de-escalation of care discussed even if they declined (Discuss DNR or withdrawal of care, Hospice)? DNR status @ -No What co-morbidities impacted this encounter? (DM, HTN, Smoking, COPD, CAD, Cancer, CVA, ARF, Chemo, Hep., AIDS, mental health diagnosis, sleep apnea, morbid obesity)? @ -Chronic abdominal pain Was patient admitted / discharged? Hospital course, mention meds given and route, prescriptions, significant lab abnormalities, going to OR and other pertinent info. @ -Patient presents with chronic abdominal pain, worse the past couple of days. Patient has had some loose stools. Evaluation unremarkable. On reevaluation patient sitting up resting comfortably in bed. Patient updated on results and need for follow-up Undiagnosed new problem with uncertain prognosis? @ -No Drug Therapy requiring intensive monitoring for toxicity (Heparin, Nitro, Insulin, Cardizem)? @ -No Were any procedures done? @ -No Diagnosis/symptom? @ -Abdominal pain Acute, or Chronic, or Acute on Chronic? @ -Acute on chronic Uncomplicated (without systemic symptoms) or Complicated (systemic symptoms)? @ -Default Side effects of treatment? @ -No Exacerbation, Progression, or Severe Exacerbation? @ -No Poses a threat to life or bodily function? How? (Chest pain, USA, [place], pneumonia, PE, COPD, DKA, ARF, appy, cholecystitis, CVA, Diverticulitis, Homicidal, Suicidal, threat to staff... and all critical care pts) @ -No - Lab Data Result diagrams: 01/14/25 10:42 01/14/25 10:42 Lab Results 01/14/25 01/14/25 Range/Units 10:42 10:42 WBC 4.34 L (4.50-10.00) 10*3/uL RBC 4.66 (4.40-5.60) 10*6/uL Hgb 14.6 (13.0-17.0) g/dL Hct 41.6 (39.6-50.0) % MCV 89.3 (80.0-97.0) fL MCH 31.3 (27.0-32.0) pg MCHC 35.1 (32.0-37.0) g/dL Plt Count 166 (140-440) 10*3/uL MPV 10.7 (9.5-12.2) fL Immature Gran % (Auto) 0 % Neutrophils % 38.8 % Lymphocytes % 50.2 % Monocytes % 6.9 % Eosinophils % 3.2 % Basophils % 0.9 % Immature Gran # 0.00 (0.00-0.04) 10*3/uL Neutrophils # 1.68 L (1.80-7.70) 10*3/uL Lymphocytes # 2.18 (0.90-5.00) 10*3/uL Monocytes # 0.30 (0.20-1.00) 10*3/uL Eosinophils # 0.14 (0.04-0.35) 10*3/uL Basophils # 0.04 (0.00-0.10) 10*3/uL Sodium 139 (137-145) mmol/L Potassium 3.5 (3.5-5.1) mmol/L Chloride 100 (98-107) mmol/L Carbon Dioxide 29 (22-30) mmol/L Anion Gap 10 mmol/L BUN 16 (9-20) mg/dL Creatinine 0.76 (0.66-1.25) mg/dL Est GFR (CKD-EPI)AfAm >90 (>60 ml/min/1.73 sqM) Est GFR (CKD-EPI)NonAf >90 (>60 ml/min/1.73 sqM) Glucose 100 H (74-99) mg/dL Calcium 10.3 H (8.4-10.2) mg/dL Total Bilirubin 1.0 (0.2-1.3) mg/dL AST 19 (17-59) U/L ALT 13 (4-49) U/L Alkaline Phosphatase 70 (38-126) U/L Total Protein 7.0 (6.3-8.2) g/dL Albumin 4.8 (3.5-5.0) g/dL Amylase 36 (30-110) U/L Lipase 16 L (23-300) U/L Disposition Clinical Impression: Chronic abdominal pain Disposition: HOME SELF-CARE Condition: Stable Instructions (If sedation given, give patient instructions): Abdominal Pain (ED) Additional Instructions: Please do follow-up with your primary care physician in the next day or 2 for recheck. Return for increased pain, not tolerating oral intake, worsening or changes symptoms or other concerns. Is patient prescribed a controlled substance at d/c from ED?: No Referrals: Sumeet Mejias III, MD [Primary Care Provider] - 1-2 days Time of Disposition: 12:14
[2025-01-14] MEDS: FAMOTIDINE 20 MG/2 ML VIAL IV STA (10:54)
[2025-01-14 10:55] LABS: Basophils # (A) 0.04 10*3/uL (0.00-0.10); Basophils % (A) 0.9 %; Eosinophils # (A) 0.14 10*3/uL (0.04-0.35); Eosinophils % (A) 3.2 %; HCT 41.6 % (39.6-50.0); HGB 14.6 g/dL (13.0-17.0); Lymphocytes # (A) 2.18 10*3/uL (0.90-5.00); Lymphocytes % (A) 50.2 %; MCH 31.3 pg (27.0-32.0); MCHC 35.1 g/dL (32.0-37.0); MCV 89.3 fL (80.0-97.0); Mean Platelet Volume 10.7 fL (9.5-12.2); Monocytes % (A) 6.9 %; Neutrophils # (A) 1.68 10*3/uL (1.80-7.70); Neutrophils % (A) 38.8 %; Platelet Count 166 10*3/uL (140-440); RBC 4.66 10*6/uL (4.40-5.60); RDW 14.1 % (11.5-14.5); WBC 4.34 10*3/uL (4.50-10.00)
[2025-01-14] MEDS: SODIUM CHLORIDE 0.9% 1,000 ML IV ONE (10:56)
--- NOTE | 2025-01-14 11:05 | XR ---
EXAMINATION TYPE: XR [facility] DATE OF EXAM: 01/14/2025 10:56 AM COMPARISON: None CLINICAL INDICATION: Male, 34 years old with history of abdominal pain; TECHNIQUE: One radiographic view of the abdomen was obtained. FINDINGS: The bowel gas pattern is nonspecific without dilated loops of small or large bowel. . Fecal material and gas are demonstrated throughout the colon and rectum. There is no evidence for organome rivera or pneumoperitoneum. No acute osseous process. No abnormal calcifications are present. IMPRESSION: Nonspecific bowel gas pattern without radiographic evidence for acute process. [facility], , 01/14/2025 11:02 AM
[2025-01-14 11:08] LABS: ALT 13 U/L (4-49); AST 19 U/L (17-59); African American GFR (CKD) >90 (>60 ml/min/1.73 sqM); Albumin 4.8 g/dL (3.5-5.0); Alkaline Phosphatase 70 U/L (38-126); Amylase 36 U/L (30-110); Anion Gap 10 mmol/L; Blood Urea Nitrogen 16 mg/dL (9-20); Calcium 10.3 mg/dL (8.4-10.2); Carbon Dioxide 29 mmol/L (22-30); Chloride 100 mmol/L (98-107); Glucose 100 mg/dL (74-99); Lipase 16 U/L (23-300); Non-African American GFR(CKD) >90 (>60 ml/min/1.73 sqM); Potassium 3.5 mmol/L (3.5-5.1); Sodium 139 mmol/L (137-145)
[2025-01-14 12:42] VITALS: BP 113/56; PULSE 66; RESP 20; TEMP 98.6
== END 2025-01-14 12:28 | disposition home or self-care (01) ==
LOC: EC 10:03
DX: G89.29 Other chronic pain (principal); R10.84 Generalized abdominal pain; Z88.8 Allergy status to other drugs, medicaments and biological substances; Z87.891 Personal history of nicotine dependence
CPT/HCPCS: 36415; 80053; 82150; 83690; 85025; 74018; 99284; 96374; 96361; J1308

== ENCOUNTER 2025-01-15 02:18 | Emergency (ER) | payer MEDICARE, OTHER ==
[2025-01-15 02:25] VITALS: BP 119/66; PULSE 72; RESP 18; TEMP 98.2
--- NOTE | 2025-01-15 02:55 | ED ---
Abdominal Pain HPI - General Chief Complaint: Abdominal Pain Stated Complaint: dehydration, abd pain Time Seen by Provider: 01/15/25 02:22 Source: patient, RN notes reviewed Mode of arrival: ambulatory Limitations: no limitations - History of Present Illness Initial Comments: 34-year-old male who is well-known to our emergency department presenting at [facility] for chronic abdominal pain. Patient has been evaluated multiple times in the last week for complaints of chronic abdominal pain. Patient states that he would like pain medication is requesting Dilaudid. He denies nausea, vomiting, chest pain or difficulty breathing. States that he will occasionally experience loose stools. Denies bloody stools. - Related Data Home Medications Medication Instructions Recorded Confirmed Nicotine 21Mg/24Hr Patch [Habitrol] 1 patch TRANSDERM HS 07/18/24 07/19/24 Previous Rx's Medication Instructions Recorded ALPRAZolam [Xanax] 0.5 mg PO TID PRN #9 tablet 07/18/24 Nicotine 14Mg/24Hr Patch [Habitrol] 1 patch TRANSDERM DAILY patch 07/21/24 Omeprazole [PriLOSEC] 20 mg PO AC-BRKFST 30 Days #30 cap 07/21/24 Ziprasidone [Geodon] 20 mg PO 1700 30 Days #30 cap 07/21/24 fluvoxaMINE MALEATE 50 mg PO BID 30 Days #60 tab 07/21/24 lamoTRIgine [LaMICtal] 100 mg PO DAILY 30 Days #30 tab 07/21/24 Loperamide HCl [Imodium A-D] 2 mg PO ONCE #30 tablet 07/29/24 Simethicone [Gas-X] 125 mg PO QID #40 capsule 07/30/24 diazePAM [Valium] 2 mg PO BID PRN 3 Days #6 tab 09/03/24 Dicyclomine [Bentyl] 20 mg PO TID #30 tablet 10/03/24 Metoclopramide [Reglan] 10 mg PO Q6H PRN #20 tab 10/13/24 Docusate [Colace] 100 mg PO DAILY PRN 14 Days #14 10/21/24 capsule Prochlorperazine [Compazine] 10 mg PO Q8H PRN #30 tab 01/01/25 Allergies Allergy/AdvReac Type Severity Reaction Status Date / Time aripiprazole [From [facility]] Allergy Unknown Agitation Verified 01/15/25 02:22 cariprazine [From Vraylar] Allergy Unknown Agitation Verified 01/15/25 02:22 citalopram [From Celexa] Allergy Unknown Agitation Verified 01/15/25 02:22 divalproex sodium Allergy Unknown Agitation Verified 01/15/25 02:22 [From Depakote] paroxetine [From Paxil] Allergy Unknown Agitation Verified 01/15/25 02:22 sertraline [From Zoloft] Allergy Unknown Agitation Verified 01/15/25 02:22 metoclopramide [From Reglan] Allergy Rash/Hives Verified 01/15/25 02:22 prochlorperazine Allergy Anaphylaxis Verified 01/15/25 02:22 [From Compazine] phenobarbital AdvReac Severe Rapid Verified 01/15/25 02:22 Heart Rate zolpidem tartrate AdvReac Unknown Altered Verified 01/15/25 02:22 [From Ambien] Mental Status dicyclomine [From Bentyl] AdvReac Rapid Verified 01/15/25 02:22 Heart Rate diphenhydramine AdvReac Hallucinati Verified 01/15/25 02:22 [From Benadryl] ons estropipate [From Ogen 2.5] AdvReac Twitching Verified 01/15/25 02:22 of Legs haloperidol [From Haldol] AdvReac Agitation Verified 01/15/25 02:22 ketorolac [From Toradol] AdvReac Unknown Verified 01/15/25 02:22 lorazepam [From Ativan] AdvReac Hallucinati Verified 01/15/25 02:22 ons methylprednisolone AdvReac Altered Verified 01/15/25 02:22 [From Solu-Medrol] Mental Status ondansetron [From Zofran] AdvReac Unknown Verified 01/15/25 02:22 Review of Systems ROS Statement: Those systems with pertinent positive or pertinent negative responses have been documented in the HPI. ROS Other: All systems not noted in ROS Statement are negative. 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 PT IS ABLE TO MAKE DECISIONS FOR HIMSELF,IBS History of Any Multi-Drug Resistant Organisms: None Reported Past Surgical History: Tonsillectomy Additional Past Surgical History / Comment(s): wisdom teeth removed. Past Anesthesia/Blood Transfusion Reactions: No Reported Reaction Additional Past Anesthesia/Blood Transfusion Reaction / Comment(s): NEVER HAD BLOOD TRANSFUSION Past Psychological History: ADD/ADHD, Anxiety, Bipolar, Depression, PTSD Smoking Status: Former smoker Past Alcohol Use History: None Reported Past Drug Use History: None Reported - Past Family History Sister(s) Additional Family Medical History / Comment(s): He has one sister that is healthy. He also has a 4-year-old daughter that is healthy. Father Family Medical History: GERD/Reflux Additional Family Medical History / Comment(s): DAD HAS ALSO NEVER BEEN AN ALCOHOLIC-RARELY, RARELY DRINKS. Mother Family Medical History: Cancer Additional Family Medical History / Comment(s): MOM STATES SHE HAS NEVER BEEN AN ALCOHOLIC-MOM RARELY ,RARELY DRINKS. HX THYROID CANCER General Exam Limitations: no limitations General appearance: alert, in no apparent distress ENT exam: Present: normal exam, mucous membranes moist Neck exam: Present: normal inspection. Absent: tenderness, meningismus, lymphadenopathy Respiratory exam: Present: normal lung sounds bilaterally. Absent: respiratory distress, wheezes, rales, rhonchi, stridor Cardiovascular Exam: Present: regular rate, normal rhythm, normal heart sounds. Absent: systolic murmur, diastolic murmur, rubs, gallop, clicks GI/Abdominal exam: Present: soft, normal bowel sounds. Absent: distended, tenderness, guarding, rebound, rigid Extremities exam: Present: normal inspection, full ROM, normal capillary refill. Absent: tenderness, pedal edema, joint swelling, calf tenderness Back exam: Present: normal inspection. Absent: CVA tenderness (R), CVA tenderness (L) Course Vital Signs 01/15/25 02:20 Temperature 98.2 F Pulse Rate 72 Respiratory 18 Rate Blood Pressure 119/66 O2 Sat by Pulse 97 Oximetry Medical Decision Making - Medical Decision Making Was pt. sent in by a medical professional or institution (, PA, MANAGER MAIL, urgent care, hospital, or correction...) When possible be specific @ -No Did you speak to anyone other than the patient for history (EMS, parent, family, police, friend...)? What history was obtained from this source @ -No Did you review nursing and triage notes (agree or disagree)? Why? @ -I reviewed and agree with nursing and triage notes Were old charts reviewed (outside hosp., previous admission, EMS record, old EKG, old radiological studies, urgent care reports/EKG's, correction records)? Report findings @ -Reviewed patient's ER visit note from earlier in the day where laboratory testing and x-ray ridging of the abdomen was completed that was unremarkable patient was discharged in stable condition. Differential Diagnosis (chest pain, altered mental status, abdominal pain women, abdominal pain men, vaginal bleeding, weakness, fever, dyspnea, syncope, headache, dizziness, GI bleed, back pain, seizure, CVA, palpatations, mental health, musculoskeletal)? @ -Differential Abdominal Pain Men: Appendicitis, cholecystitis, diverticulosis, ischemic bowel, pancreatitis, hepatitis, UTI, gastroenteritis, AAA, incarcerated hernia, bowel obstruction, constipation, inflammatory bowel, hepatitis, peptic ulcer disease, splenic infarction, perforated viscus, testicular torsion, this is not meant to be an all-inclusive list EKG interpreted by me (3pts min.). @None X-rays interpreted by me (1pt min.). @ -None done CT interpreted by me (1pt min.). @ -None done U/S interpreted by me (1pt. min.). @ -None done What testing was considered but not performed or refused? (CT, X-rays, U/S, labs)? Why? @ -None What meds were considered but not given or refused? Why? @ -None Did you discuss the management of the patient with other professionals (professionals i.e. , PA, MANAGER MAIL, lab, RT, psych nurse, social services specialist, sewing machine operator floorperson, teacher, loan officer, outsole caser)? Give summary @ -No Was smoking cessation discussed for >3mins.? @ -No Was critical care preformed (if so, how long)? @ -No Were there social determinants of health that impacted care today? How? (Homelessness, low income, unemployed, alcoholism, drug addiction, transportation, low edu. Level, literacy, decrease access to med. care, fdc, rehab)? @ -No Was there de-escalation of care discussed even if they declined (Discuss DNR or withdrawal of care, Hospice)? DNR status @ -No What co-morbidities impacted this encounter? (DM, HTN, Smoking, COPD, CAD, Cancer, CVA, ARF, Chemo, Hep., AIDS, mental health diagnosis, sleep apnea, morbi d obesity)? @ -None Was patient admitted / discharged? Hospital course, mention meds given and route, prescriptions, significant lab abnormalities, going to OR and other pertinent info. @Discharge. 34-year-old male presenting for chronic abdominal pain. Abdominal examination is unremarkable. Patient provided with dose of pain medications doctor follow-up as scheduled. Case discussed with Dr. blood Undiagnosed new problem with uncertain prognosis? @ -No Drug Therapy requiring intensive monitoring for toxicity (Heparin, Nitro, Insulin, Cardizem)? @ -No Were any procedures done? @ -No Diagnosis/symptom? @ -chronic abdominal pain Acute, or Chronic, or Acute on Chronic? @ -chronic Uncomplicated (without systemic symptoms) or Complicated (systemic symptoms)? @ -uncomplicated Side effects of treatment? @ -No Exacerbation, Progression, or Severe Exacerbation? @ -No Poses a threat to life or bodily function? How? (Chest pain, [place], [place], pneumonia, PE, COPD, DKA, ARF, appy, cholecystitis, CVA, Diverticulitis, Homicidal, Suicidal, threat to staff... and all critical care pts) @ -No Disposition Clinical Impression: Chronic abdominal pain Disposition: HOME SELF-CARE Condition: Stable Instructions (If sedation given, give patient instructions): Abdominal Pain (ED) Additional Instructions: Please return to the Emergency Department if symptoms worsen or any other concerns. Is patient prescribed a controlled substance at d/c from ED?: No Referrals: Sumeet Mejias III, MD [Primary Care Provider] - 1-2 days Time of Disposition: 02:55
[2025-01-15] MEDS: Acetaminophen-Codeine 300-30mg TAB PO STA (03:15)
== END 2025-01-15 03:18 | disposition home or self-care (01) ==
LOC: EC 02:18
DX: R10.9 Unspecified abdominal pain (principal); G89.29 Other chronic pain; Z87.891 Personal history of nicotine dependence; Z88.1 Allergy status to other antibiotic agents; Z88.3 Allergy status to other anti-infective agents; Z88.5 Allergy status to narcotic agent; Z88.6 Allergy status to analgesic agent; Z88.8 Allergy status to other drugs, medicaments and biological substances
CPT/HCPCS: 99284

== ENCOUNTER 2025-01-15 06:14 | Emergency (ER) | payer MEDICARE, OTHER ==
--- NOTE | 2025-01-15 06:34 | ED ---
Abdominal Pain HPI - General Chief Complaint: Abdominal Pain Stated Complaint: Abdominal pain, Diarrhea Time Seen by Provider: 01/15/25 06:16 Source: patient, RN notes reviewed Mode of arrival: ambulatory Limitations: no limitations - History of Present Illness Initial Comments: This is a 34 year old male who presents to the emergency department for abdo leroy pain and diarrhea. States that it has been going on for 3 days at this point. Patient is well known to this emergency department for repeated visits related to the same complaint. He was also just discharged earlier this morning for the same thing. Believes that it was triggered by something that he ate, specifically chocolate. Denies any N/V. MD Complaint: abdominal pain - Related Data Home Medications Medication Instructions Recorded Confirmed Nicotine 21Mg/24Hr Patch [Habitrol] 1 patch TRANSDERM HS 07/18/24 07/19/24 Previous Rx's Medication Instructions Recorded ALPRAZolam [Xanax] 0.5 mg PO TID PRN #9 tablet 07/18/24 Nicotine 14Mg/24Hr Patch [Habitrol] 1 patch TRANSDERM DAILY patch 07/21/24 Omeprazole [PriLOSEC] 20 mg PO AC-BRKFST 30 Days #30 cap 07/21/24 Ziprasidone [Geodon] 20 mg PO 1700 30 Days #30 cap 07/21/24 fluvoxaMINE MALEATE 50 mg PO BID 30 Days #60 tab 07/21/24 lamoTRIgine [LaMICtal] 100 mg PO DAILY 30 Days #30 tab 07/21/24 Loperamide HCl [Imodium A-D] 2 mg PO ONCE #30 tablet 07/29/24 Simethicone [Gas-X] 125 mg PO QID #40 capsule 07/30/24 diazePAM [Valium] 2 mg PO BID PRN 3 Days #6 tab 09/03/24 Dicyclomine [Bentyl] 20 mg PO TID #30 tablet 10/03/24 Metoclopramide [Reglan] 10 mg PO Q6H PRN #20 tab 10/13/24 Docusate [Colace] 100 mg PO DAILY PRN 14 Days #14 10/21/24 capsule Prochlorperazine [Compazine] 10 mg PO Q8H PRN #30 tab 01/01/25 Allergies Allergy/AdvReac Type Severity Reaction Status Date / Time aripiprazole [From Abilify] Allergy Unknown Agitation Verified 01/15/25 06:23 cariprazine [From Vraylar] Allergy Unknown Agitation Verified 01/15/25 06:23 citalopram [From Celexa] Allergy Unknown Agitation Verified 01/15/25 06:23 divalproex sodium Allergy Unknown Agitation Verified 01/15/25 06:23 [From Depakote] paroxetine [From Paxil] Allergy Unknown Agitation Verified 01/15/25 06:23 sertraline [From Zoloft] Allergy Unknown Agitation Verified 01/15/25 06:23 metoclopramide [From Reglan] Allergy Rash/Hives Verified 01/15/25 06:23 prochlorperazine Allergy Anaphylaxis Verified 01/15/25 06:23 [From Compazine] phenobarbital AdvReac Severe Rapid Verified 01/15/25 06:23 Heart Rate zolpidem tartrate AdvReac Unknown Altered Verified 01/15/25 06:23 [From Ambien] Mental Status dicyclomine [From Bentyl] AdvReac Rapid Verified 01/15/25 06:23 Heart Rate diphenhydramine AdvReac Hallucinati Verified 01/15/25 06:23 [From Benadryl] ons estropipate [From Ogen 2.5] AdvReac Twitching Verified 01/15/25 06:23 of Legs haloperidol [From Haldol] AdvReac Agitation Verified 01/15/25 06:23 ketorolac [From Toradol] AdvReac Unknown Verified 01/15/25 06:23 lorazepam [From Ativan] AdvReac Hallucinati Verified 01/15/25 06:23 ons methylprednisolone AdvReac Altered Verified 01/15/25 06:23 [From Solu-Medrol] Mental Status ondansetron [From Zofran] AdvReac Unknown Verified 01/15/25 06:23 Review of Systems ROS Statement: Those systems with pertinent positive or pertinent negative responses have been documented in the HPI. ROS Other: All systems not noted in ROS Statement are negative. 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 PT IS ABLE TO MAKE DECISIONS FOR HIMSELF,IBS History of Any Multi-Drug Resistant Organisms: None Reported Past Surgical History: Tonsillectomy Additional Past Surgical History / Comment(s): wisdom teeth removed. Past Anesthesia/Blood Transfusion Reactions: No Reported Reaction Additional Past Anesthesia/Blood Transfusion Reaction / Comment(s): NEVER HAD BLOOD TRANSFUSION Past Psychological History: ADD/ADHD, Anxiety, Bipolar, Depression, PTSD Smoking Status: Former smoker Past Alcohol Use History: None Reported Past Drug Use History: None Reported - Past Family History Sister(s) Additional Family Medical History / Comment(s): He has one sister that is healthy. He also has a 4-year-old daughter that is healthy. Father Family Medical History: GERD/Reflux Additional Family Medical History / Comment(s): DAD HAS ALSO NEVER BEEN AN ALCOHOLIC-RARELY, RARELY DRINKS. Mother Family Medical History: Cancer Additional Family Medical History / Comment(s): MOM STATES SHE HAS NEVER BEEN AN ALCOHOLIC-MOM RARELY ,RARELY DRINKS. HX THYROID CANCER General Exam Limitations: no limitations General appearance: alert, in no apparent distress Head exam: Present: atraumatic, normocephalic, normal inspection Respiratory exam: Present: normal lung sounds bilaterally. Absent: respiratory distress, wheezes, rales, rhonchi, stridor Cardiovascular Exam: Present: regular rate, normal rhythm GI/Abdominal exam: Present: soft, normal bowel sounds. Absent: distended, tenderness, guarding, rebound, rigid Neurological exam: Present: alert, oriented X3, CN II-XII intact Psychiatric exam: Present: normal affect, normal mood Skin exam: Present: warm, dry, intact, normal color. Absent: rash Course Vital Signs 01/15/25 06:22 Temperature 99.3 F Pulse Rate 81 Respiratory 18 Rate Blood Pressure 123/77 O2 Sat by Pulse 100 Oximetry Medical Decision Making - Medical Decision Making This is a 34-year-old male who presents to the emergency department for abdominal pain. Was pt. sent in by a medical professional or institution? @ -No Did you speak to anyone other than the patient for history? @ -No Did you review nursing and triage notes? @ -Yes, and I agree, it is accurate with regards to the patient's symptoms. Were old charts reviewed? @ -No Differential Diagnosis? @ -Differential Abdominal Pain Men: Appendicitis, cholecystitis, diverticulosis, ischemic bowel, pancreatitis, hepatitis, UTI, gastroenteritis, AAA, incarcerated hernia, bowel obstruction, constipation, inflammatory bowel, hepatitis, peptic ulcer disease, splenic infarction, perforated viscus, testicular torsion, this is not meant to be an all-inclusive list EKG interpreted by me (3pts min.)? @ -Not obtained X-rays interpreted by me (1pt min.)? @ -Not obtained CT interpreted by me (1pt min.)? @ -Not obtained U/S interpreted by me (1pt. min.)? @ -Not obtained What testing was considered but not performed? (CT, X-rays, U/S, labs)? Why? @ -None What meds were considered but not given? Why? @ -None Did you discuss the management of the patient with other professionals? @ -No Did you reconcile home meds? @ -No Was smoking cessation discussed for >3mins.? @ -No Was critical care preformed (if so, how long)? @ -No Were there social determinants of health that impacted care today? How? (Homelessness, low income, unemployed, alcoholism, drug addiction, transportation, low edu. Level, literacy, decrease access to med. care, [facility], rehab)? @ -No Was there de-escalation of care discussed even if they declined? (Discuss DNR or withdrawal of care, Hospice)? @ -No What co-morbidities impacted this encounter? (DM, HTN, Smoking, COPD, CAD, Cancer, CVA, Hep., AIDS, mental health diagnosis, sleep apnea, morbid obesity)? @ -IBS Was patient admitted / discharged? @ -Discharged. Patient is well-known to this emergency department for recurrent visits related to the same complaint. He presents with drug-seeking behavior and is not exhibiting any signs of distress in terms of pain in the emergency department. He was treated with droperidol, Lomotil, and Tylenol. Patient found to be sleeping comfortably after receiving the medications. 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 Patient discharged home in stable condition. Case discussed with ED attending Dr. Brown. Return precautions reviewed in depth, the patient is instructed to return to the emergency department with any new, worsening, or concerning symptoms. Patient verbalized understanding. Undiagnosed new problem with uncertain prognosis? @ -None Drug Therapy requiring intensive monitoring for toxicity (Heparin, Nitro, Insulin, Cardizem)? @ -None Were any procedures done? @ -None Diagnosis/symptom? @ -Abdominal pain Acute, or Chronic, or Acute on Chronic? @ -Acute Uncomplicated (without systemic symptoms) or Complicated (systemic symptoms)? @ -Uncomplicated Side effects of treatment? @ -None Exacerbation, Progression, or Severe Exacerbation] @ -Not applicable Poses a threat to life or bodily function? @ -No Disposition Clinical Impression: Abdominal pain Disposition: HOME SELF-CARE Instructions (If sedation given, give patient instructions): Abdominal Pain (ED) Additional Instructions: Return to the emergency department with any new, worsening, or concerning symptoms. Follow up with your primary care provider in 1-2 days. Is patient prescribed a controlled substance at d/c from ED?: No Referrals: Sumeet Mejias III, MD [Primary Care Provider] - 1-2 days Time of Disposition: 06:33
[2025-01-15] MEDS: ACETAMINOPHEN TAB 500 MG TAB PO STA (06:43)
[2025-01-15] MEDS: LIDOCAINE 4% PATCH TOPICAL ONE (06:43)
[2025-01-15] MEDS: droPERidol 5 MG/2 ML VIAL IM ONE (06:44)
[2025-01-15] MEDS: DIPHENOX-ATROP 2.5-0.025 MG 1 EACH TAB PO STA (06:44)
[2025-01-15] MEDS: ACET/COD 300 MG/30 MG STARTER PACK 6 TAB BTL PO STA (06:44)
[2025-01-15] MEDS: DIPHENOX-ATROP STARTER PACK 8 TAB BTL PO STA (07:41)
[2025-01-15 07:50] VITALS: BP 97/59; PULSE 66; RESP 16; TEMP 97.7
== END 2025-01-15 07:44 | disposition home or self-care (01) ==
LOC: EC 06:14
DX: R10.9 Unspecified abdominal pain (principal); K58.0 Irritable bowel syndrome with diarrhea; Z88.8 Allergy status to other drugs, medicaments and biological substances; Z87.891 Personal history of nicotine dependence
CPT/HCPCS: 99284; 96372; J1790

== ENCOUNTER 2025-01-17 04:37 | Inpatient (IN) | payer MEDICARE, MEDICAID ==
--- NOTE | 2025-01-17 05:18 | ED ---
General Adult HPI - General Chief complaint: Psychiatric Symptoms Stated complaint: Mental Health Time Seen by Provider: 01/17/25 04:40 Source: patient, RN notes reviewed, old records reviewed, Caregiver Mode of arrival: ambulatory - History of Present Illness Initial comments: 34-year-old male presenting for mental health evaluation. Patient is presenting with suicidal ideation, stating he is hearing voices. He did attempt to cut his left wrist. Denies any drug ingestion. Denies alcohol. - Related Data Home Medications Medication Instructions Recorded Confirmed Nicotine 21Mg/24Hr Patch [Habitrol] 1 patch TRANSDERM HS 07/18/24 07/19/24 Previous Rx's Medication Instructions Recorded ALPRAZolam [Xanax] 0.5 mg PO TID PRN #9 tablet 07/18/24 Nicotine 14Mg/24Hr Patch [Habitrol] 1 patch TRANSDERM DAILY patch 07/21/24 Omeprazole [PriLOSEC] 20 mg PO AC-BRKFST 30 Days #30 cap 07/21/24 Ziprasidone [Geodon] 20 mg PO 1700 30 Days #30 cap 07/21/24 fluvoxaMINE MALEATE 50 mg PO BID 30 Days #60 tab 07/21/24 lamoTRIgine [LaMICtal] 100 mg PO DAILY 30 Days #30 tab 07/21/24 Loperamide HCl [Imodium A-D] 2 mg PO ONCE #30 tablet 07/29/24 Simethicone [Gas-X] 125 mg PO QID #40 capsule 07/30/24 diazePAM [Valium] 2 mg PO BID PRN 3 Days #6 tab 09/03/24 Dicyclomine [Bentyl] 20 mg PO TID #30 tablet 10/03/24 Metoclopramide [Reglan] 10 mg PO Q6H PRN #20 tab 10/13/24 Docusate [Colace] 100 mg PO DAILY PRN 14 Days #14 10/21/24 capsule Prochlorperazine [Compazine] 10 mg PO Q8H PRN #30 tab 01/01/25 Allergies Allergy/AdvReac Type Severity Reaction Status Date / Time aripiprazole [From Abilify] Allergy Unknown Agitation Verified 01/17/25 04:51 cariprazine [From Vraylar] Allergy Unknown Agitation Verified 01/17/25 04:51 citalopram [From Celexa] Allergy Unknown Agitation Verified 01/17/25 04:51 divalproex sodium Allergy Unknown Agitation Verified 01/17/25 04:51 [From Depakote] paroxetine [From Paxil] Allergy Unknown Agitation Verified 01/17/25 04:51 sertraline [From Zoloft] Allergy Unknown Agitation Verified 01/17/25 04:51 metoclopramide [From Reglan] Allergy Rash/Hives Verified 01/17/25 04:51 prochlorperazine Allergy Anaphylaxis Verified 01/17/25 04:51 [From Compazine] phenobarbital AdvReac Severe Rapid Verified 01/17/25 04:51 Heart Rate zolpidem tartrate AdvReac Unknown Altered Verified 01/17/25 04:51 [From Ambien] Mental Status dicyclomine [From Bentyl] AdvReac Rapid Verified 01/17/25 04:51 Heart Rate diphenhydramine AdvReac Hallucinati Verified 01/17/25 04:51 [From Benadryl] ons estropipate [From Ogen 2.5] AdvReac Twitching Verified 01/17/25 04:51 of Legs haloperidol [From Haldol] AdvReac Agitation Verified 01/17/25 04:51 ketorolac [From Toradol] AdvReac Unknown Verified 01/17/25 04:51 lorazepam [From Ativan] AdvReac Hallucinati Verified 01/17/25 04:51 ons methylprednisolone AdvReac Altered Verified 01/17/25 04:51 [From Solu-Medrol] Mental Status ondansetron [From Zofran] AdvReac Unknown Verified 01/17/25 04:51 Review of Systems ROS Statement: Those systems with pertinent positive or pertinent negative responses have been documented in the HPI. ROS Other: All systems not noted in ROS Statement are negative. 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 PT IS ABLE TO MAKE DECISIONS FOR HIMSELF,IBS History of Any Multi-Drug Resistant Organisms: None Reported Past Surgical History: Tonsillectomy Additional Past Surgical History / Comment(s): wisdom teeth removed. Past Anesthesia/Blood Transfusion Reactions: No Reported Reaction Additional Past Anesthesia/Blood Transfusion Reaction / Comment(s): NEVER HAD BLOOD TRANSFUSION Past Psychological History: ADD/ADHD, Anxiety, Bipolar, Depression, PTSD Smoking Status: Former smoker Past Alcohol Use History: None Reported Past Drug Use History: None Reported - Past Family History Sister(s) Additional Family Medical History / Comment(s): He has one sister that is healthy. He also has a 4-year-old daughter that is healthy. Father Family Medical History: GERD/Reflux Additional Family Medical History / Comment(s): DAD HAS ALSO NEVER BEEN AN ALCOHOLIC-RARELY, RARELY DRINKS. Mother Family Medical History: Cancer Additional Family Medical History / Comment(s): MOM STATES SHE HAS NEVER BEEN AN ALCOHOLIC-MOM RARELY ,RARELY DRINKS. HX THYROID CANCER General Exam General appearance: alert, anxious Head exam: Present: atraumatic, normocephalic Eye exam: Present: normal appearance, PERRL Respiratory exam: Present: normal lung sounds bilaterally. Absent: respiratory distress Cardiovascular Exam: Present: regular rate, normal rhythm GI/Abdominal exam: Present: soft. Absent: distended, tenderness Neurological exam: Present: alert, oriented X3 Psychiatric exam: Present: anxious, suicidal ideation Skin exam: Present: warm, intact Course Vital Signs 01/17/25 05:20 Temperature 98.6 F Pulse Rate 82 Respiratory 18 Rate Blood Pressure 123/63 O2 Sat by Pulse 100 Oximetry Medical Decision Making - Medical Decision Making Was pt. sent in by a medical professional or institution ([facility], [employer], urgent care, hospital, or [place] health [place] facility...) When possible be specific @ -No Did you speak to anyone other than the patient for history (EMS, parent, family, police, friend...)? What history was obtained from this source @ -No Did you review nursing and triage notes (agree or disagree)? Why? @ -I reviewed and agree with nursing and triage notes Were old charts reviewed (outside hosp., previous admission, EMS record, old EKG, old radiological studies, urgent care reports/EKG's, [place] health [place] facility records)? Report findings @ -No old charts were reviewed Differential Mental Health Depression, anxiety, bipolar, psychosis, schizophrenia, borderline personality, situational depression, adjustment disorder, behavioral disorder, brain tumor, malingering, substance abuse, encephalopathy, medication reaction, dementia, hypothyroidism, degenerative neurologic disorder, lupus.... This is not meant to be all-inclusive list EKG interpreted by me (3pts min.). @ -As above X-rays interpreted by me (1pt min.). @ -None done CT interpreted by me (1pt min.). @ -None done U/S interpreted by me (1pt. min.). @ -None done What testing was considered but not performed or refused? (CT, X-rays, U/S, labs)? Why? @ -None What meds were considered but not given or refused? Why? @ -None Did you discuss the management of the patient with other professionals (professionals i.e. Dr., PA, [employer], lab, RT, psych nurse, social media sr strategy manager, wrapper stemmer operator, teacher, aerospace engineer officer armament, oil field caser)? Give summary @ -Patient evaluated by EPS, felt to require inpatient psychiatric care. Was smoking cessation discussed for >3mins.? @ -No Was critical care preformed (if so, how long)? @ -No Were there social determinants of health that impacted care today? How? (Homelessness, low income, unemployed, alcoholism, drug addiction, transportation, low edu. Level, literacy, decrease access to med. care, alf, rehab)? @ -No Was there de-escalation of care discussed even if they declined (Discuss DNR or withdrawal of care, Hospice)? DNR status @ -No What co-morbidities impacted this encounter? (DM, HTN, Smoking, COPD, CAD, Cancer, CVA, ARF, Chemo, Hep., AIDS, mental health diagnosis, sleep apnea, morbid obesity)? @ -None Was patient admitted / discharged? Hospital course, mention meds given and route, prescriptions, significant lab abnormalities, going to OR and other pertinent info. @ -[34-year-old male with suicidal ideation and suicidal attempt. Patient is also having hallucination. He is medically cleared and evaluated by EPS, felt to require inpatient psychiatric care. He will be admitted to this institution. Undiagnosed new problem with uncertain prognosis? @ -No Drug Therapy requiring intensive monitoring for toxicity (Heparin, Nitro, Insulin, Cardizem)? @ -No Were any procedures done? @ -No Diagnosis/symptom? @Depression, suicidal ideation Acute, or Chronic, or Acute on Chronic? @ -Acute Uncomplicated (without systemic symptoms) or Complicated (systemic symptoms)? @ -Default Side effects of treatment? @ -No Exacerbation, Progression, or Severe Exacerbation? @ -No Poses a threat to life or bodily function? How? (Chest pain, USA, LA, pneumonia, PE, COPD, DKA, ARF, appy, cholecystitis, CVA, Diverticulitis, Homicidal, Suicidal, threat to staff... and all critical care pts) @ -[Yes, self-harm - Lab Data Lab Results 01/17/25 Range/Units 05:10 Urine Opiates Screen Detected H (NotDetected) Ur Oxycodone Screen Not Detected (NotDetected) Urine Methadone Screen Not Detected (NotDetected) Ur Barbiturates Screen Not Detected (NotDetected) U Tricyclic Antidepress Not Detected (NotDetected) Ur Phencyclidine Scrn Not Detected (NotDetected) Ur Amphetamines Screen Not Detected (NotDetected) U Methamphetamines Scrn Not Detected (NotDetected) U Benzodiazepines Scrn Detected H (NotDetected) Urine Cocaine Screen Not Detected (NotDetected) U Marijuana (THC) Screen Detected H (NotDetected) Disposition Clinical Impression: Psychosis, Suicidal ideation, Depression Disposition: ADMITTED IP TO THIS [facility] Condition: Stable Is patient prescribed a controlled substance at d/c from ED?: No Referrals: Jose Desai MD [Primary Care Provider] - 1-2 days Time of Disposition: 06:16
[2025-01-17 05:48] LABS: Amphetamine Screen,Urine Not Detected (NotDetected); Barbiturate Screen,Urine Not Detected (NotDetected); Benzodiazepines Screen,Urine Detected (NotDetected); Cocaine Screen,Urine Not Detected (NotDetected); Methadone Screen, Urine Not Detected (NotDetected); Opiate Screen,Urine Detected (NotDetected); Oxycodone Screen, Urine Not Detected (NotDetected); Phencyclidine Screen,Urine Not Detected (NotDetected); Tricyclic Antidepressant,Urine Not Detected (NotDetected); Urn Cannabinoid Scrn Detected (NotDetected)
[2025-01-17 07:43] LABS: Influenza A Not Detected (Not Detectd); Influenza B Not Detected (Not Detectd); RSV Not Detected (Not Detectd)
[2025-01-17] MEDS ORDERED: diazePAM 2 MG TAB PO PRN (09:45)
[2025-01-17] MEDS ORDERED: METOCLOPRAMIDE 10 MG TAB PO PRN (09:45)
[2025-01-17] MEDS ORDERED: LOPERAMIDE 2 MG CAP PO PRN ×2 (09:45→09:59)
[2025-01-17] MEDS ORDERED: DOCUSATE 100 MG CAP PO PRN (09:45)
[2025-01-17] MEDS ORDERED: PROCHLORPERAZINE 10 MG TAB PO PRN (09:45)
[2025-01-17] MEDS ORDERED: HALOPERIDOL LACTATE 5 MG/ML 1 ML VIAL IM PRN (09:46)
[2025-01-17] MEDS ORDERED: ACETAMINOPHEN TAB 325 MG TAB PO PRN (09:46)
[2025-01-17] MEDS ORDERED: MAGNESIUM HYDROXIDE 2,400 MG/30 ML CUP PO PRN (09:46)
[2025-01-17] MEDS ORDERED: IBUPROFEN 600 MG TAB PO PRN (09:46)
[2025-01-17] MEDS ORDERED: MAG HYDROX/AL HYDROX/SIMETH 355 ML BOTTLE PO PRN (09:46)
[2025-01-17] MEDS ORDERED: haloperidoL 5 MG TAB PO PRN (09:46)
[2025-01-17 10:12] LABS: Appearance,Urine Clear (Clear); Bilirubin,Urine Negative (Negative); Blood,Urine Negative (Negative); Color,Urine Yellow; Glucose,Urine (UA) Negative (Negative); Ketones,Urine Negative (Negative); Leukocyte Esterase,Urine Negative (Negative); Nitrite,Urine Negative (Negative); PH, Urine 6.5 (5.0-8.0); Protein,Urine Negative (Negative); Specific Gravity,Urine 1.027 (1.001-1.035)
[2025-01-17] MEDS: NICOTINE 14MG/24HR PATCH TRANSDERM SCH (10:36)
--- NOTE | 2025-01-17 12:34 | P.HP ---
Psychiatric H&P - . H&P Date: 01/17/25 History & Physical: Allergies Allergy/AdvReac Type Severity Reaction Status Date / Time aripiprazole from Abilify Allergy Unknown Agitation Verified 01/17/25 11:28 cariprazine from Vraylar Allergy Unknown Agitation Verified 01/17/25 11:28 citalopram from Celexa Allergy Unknown Agitation Verified 01/17/25 11:28 divalproex sodium Allergy Unknown Agitation Verified 01/17/25 11:28 From Depakote paroxetine from Paxil Allergy Unknown Agitation Verified 01/17/25 11:28 sertraline from Zoloft Allergy Unknown Agitation Verified 01/17/25 11:28 metoclopramide from Reglan Allergy Rash/Hives Verified 01/17/25 11:28 prochlorperazine Allergy Anaphylaxis Verified 01/17/25 11:28 From Compazine phenobarbital AdvReac Severe Rapid Verified 01/17/25 11:28 Heart Rate zolpidem tartrate AdvReac Unknown Altered Verified 01/17/25 11:28 From Ambien Mental Status atropine from Lomotil AdvReac Rapid Verified 01/17/25 11:28 Heart Rate dicyclomine from Bentyl AdvReac Rapid Verified 01/17/25 11:28 Heart Rate diphenhydramine AdvReac Hallucinati Verified 01/17/25 11:28 From Benadryl ons diphenoxylate from Lomotil AdvReac Rapid Verified 01/17/25 11:28 Heart Rate estropipate from Ogen 2.5 AdvReac Twitching Verified 01/17/25 11:28 of Legs haloperidol from Haldol AdvReac Agitation Verified 01/17/25 11:28 ketorolac from Toradol AdvReac Unknown Verified 01/17/25 11:28 lorazepam from Ativan AdvReac Hallucinati Verified 01/17/25 11:28 ons methylprednisolone AdvReac Altered Verified 01/17/25 11:28 From Solu-Medrol Mental Status ondansetron from Zofran AdvReac Unknown Verified 01/17/25 11:28 Vital Signs Temp 98.5 F 01/17/25 10:05 Pulse 56 L 01/17/25 10:05 Resp 16 01/17/25 10:05 BP 114/64 01/17/25 10:05 Pulse Ox 99 01/17/25 10:05 FiO2 Intake & Output 01/16/25 01/17/25 01/17/25 18:59 06:59 18:59 Weight 72.575 kg Laboratory Last Values Urine Color Yellow 01/17/25 05:10 Urine Appearance Clear (Clear) 01/17/25 05:10 Urine pH 6.5 (5.0-8.0) 01/17/25 05:10 Ur Specific Aristes 1.027 (1.001-1.035) 01/17/25 05:10 Urine Protein Negative (Negative) 01/17/25 05:10 Urine Glucose (UA) Negative (Negative) 01/17/25 05:10 Urine Ketones Negative (Negative) 01/17/25 05:10 Urine Blood Negative (Negative) 01/17/25 05:10 Urine Nitrite Negative (Negative) 01/17/25 05:10 Urine Bilirubin Negative (Negative) 01/17/25 05:10 Urine Urobilinogen 4.0 mg/dL (<2.0) 01/17/25 05:10 Ur Leukocyte Esterase Negative (Negative) 01/17/25 05:10 Urine Opiates Screen Detected (NotDetected) H 01/17/25 05:10 Ur Oxycodone Screen Not Detected (NotDetected) 01/17/25 05:10 Urine Methadone Screen Not Detected (NotDetected) 01/17/25 05:10 Ur Barbiturates Screen Not Detected (NotDetected) 01/17/25 05:10 U Tricyclic Antidepress Not Detected (NotDetected) 01/17/25 05:10 Ur Phencyclidine Scrn Not Detected (NotDetected) 01/17/25 05:10 Ur Amphetamines Screen Not Detected (NotDetected) 01/17/25 05:10 U Methamphetamines Scrn Not Detected (NotDetected) 01/17/25 05:10 U Benzodiazepines Scrn Detected (NotDetected) H 01/17/25 05:10 Urine Cocaine Screen Not Detected (NotDetected) 01/17/25 05:10 U Marijuana (THC) Screen Detected (NotDetected) H 01/17/25 05:10 Influenza Type A (PCR) Not Detected (Not Detectd) 01/17/25 06:55 Influenza Type B (PCR) Not Detected (Not Detectd) 01/17/25 06:55 RSV (PCR) Not Detected (Not Detectd) 01/17/25 06:55 SARS-CoV-2 (PCR) Not Detected (Not Detectd) 01/17/25 06:55 01/17/25 12:23 IDENTIFYING DATA: Patient is a 34-year-old male, living with mom who is his guardian, on disability CHIEF COMPLAINT: SI, AH HPI: Patient presented to the hospital with suicidal ideations and hearing voices. Patient also superficially cut his left wrist. Per EPS, "Pt. on his back with knees pulled to his chest and head lifted off the bed. Pt, who is disheveled with hair unwashed is rocking back and forth. Pt. admits to anxiety 04/15 and SI. Pt. tearful when telling writer producer that he has had a marked increase of auditory hallucinations especially from electronics such as the TV and cell phone Pt claims the beeping monitors in the ED are communicating with him. Pt's. guardian brought pt in due to the preceding issues as well as self harm by cutting his forearm. Pt. feels extreemly overwelmed and wants treatment. Pt states "I really need you vito's to help me. As long as it takes. I'll go as long as it takes to get better". Pt claims compliance with medication. Pt admits to marijuana use dening other substances. Urine positive for benzodiazepines and opiates which he is prescribed. Pt's mother/guardian contacted for further information. Mother claims the pt has been adherent to his medication regimen but that he has not had a psychiatrist since his previous psychiatrist closed the office. Pt has severe panic attacks and has OCD which is "out of control"." Patient seen and evaluated on the unit and was agreeable with speaking to writer producer in office. He states ever since being diagnosed with IBS back in March 2024 his mental health has suffered. He states struggling with abdominal pain and constipation and given that there is no cure this is led to feelings of helplessness. He states he has not been able to see his daughter due to the severity of his symptoms. He states feeling as though his mood symptoms worsened in the spring time due to past memories of him being forced to stay indoors due to the severity of his OCD. He states his OCD involves the need to have other people doing small tasks for him such as picking things up or opening up the door. He denies any sleep or appetite difficulties, concentration difficulties or low energy. He does report helplessness and anhedonia and states his suicidal ideations have been waxing and waning. He states that the auditory hallucinations however are constant described as repeating everything he says. He did not appear internally preoccupied during encounter. Patient denies any homicidal ideations intent or plan. At this time patient denies any visual hallucinations. Patient denies any flight of ideas racing thoughts and increased in goal directed behavior. Patient admits to using no substances, stated that he last used cannabis a week ago and that he last used nicotine 1 month ago. PAST PSYCHIATRIC HISTORY: Patient has a history of OCD, close is unspecified, PTSD, developmental delay. He is currently prescribed Luvox 50 mg twice daily, Lamictal 100 mg at bedtime, Geodon 20 mg at 5 PM. He reports 8-10 previous inpatient hospitalizations most recent being at this facility back in 07/2024. He follows with [facility] with maps showing patient last filled Xanax 1 mg 3 times daily on 01/04/[address] Mejias. Patient denies any history of suicide attempts in the past. He does report a history of self harming last done on 07/2024. PMH: as per ER note ALLERGIES: as per EMR SUBSTANCE USE HISTORY: As per [facility]IC/SUBSTANCE USE HISTORY: He states his mother side of the family has schizophrenia SOCIAL HISTORY: Patient lives with his mom who is also his guardian. He is single and has 1 kid. 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 He is on [facility] MENTAL STATUS EXAM: General Appearance: Patient appears to be stated age is alert, directable, and attempts to cooperate. Patient appears to have poor hygiene and grooming. Behavior: Patient is seated without any agitated behavior. Speech: Patient's speech is fluent and nonpressured. Mood/Affect: Patient reports their mood is anxious, affect is congruent and constricted. Suicidality/Homicidality: Patient denies having any homicidal ideation intent or plan. He reports suicidal ideations that comes and goes Perceptions: Patient denies any visual hallucinations and he reports auditory hallucinations Though content/process: There is no evidence of any delusional thought content and thought process is linear and goal-directed. Memory and concentration: AOX3, grossly intact for the purposes of this session. Can spell "WORLD" backwards Judgment and insight: Fair STRENGTHS/WEAKNESSES: strength is that patient is resilient, compliant with medications and has a guardian. Weakness is that patient has poor judgment and is impulsive INTELLECT: Below average IMPRESSIONS: Adjustment disorder with depressed mood Psychosis, unspecified OCD Developmental delay Cannabis use disorder PLAN: -Patient is admitted under voluntary status to [facility] for stabilization of psychiatric symptoms and safety. Patient has signed adult voluntary form and and is placed in patient's chart. -Medications : Increase Geodon to 40 mg at 6 PM for psychosis, increase Luvox to 75 mg twice daily for OCD/depression, continue Lamictal 100 mg at bedtime for mood stabilization - Xanax and Haldol PRN for agitation/aggression -Patient was counselled on substance abuse and desired to cut back on use -Patient was informed of the risks, benefits and side effects of the medication and patient verbally consented to taking the medications. Patient signed med consent form and was placed in chart. Patient offered and declined patient education sheet for psychotropic medications. -Internal Medicine consult to perform medical evaluation and physical. -NRT -not needed as patient does not smoke -SW on board for discharge planning. Encourage patient to participate in groups to work on coping skills.
[2025-01-17] MEDS ORDERED: SIMETHICONE 80 MG CHEWABLE PO SCH (13:00)
[2025-01-17] MEDS: ALPRAZolam 0.5 MG TAB PO PRN (14:13)
[2025-01-17] MEDS ORDERED: DICYCLOMINE 20 MG TAB PO SCH (16:00)
[2025-01-17] MEDS ORDERED: ZIPRASIDONE 20 MG CAP PO SCH (17:00)
[2025-01-17] MEDS: ZIPRASIDONE 20 MG CAP PO SCH (18:37)
[2025-01-18] MEDS: PANTOPRAZOLE 40 MG TABLET PO SCH (08:26)
[2025-01-18] MEDS ORDERED: lamoTRIgine 100 MG TAB PO SCH (09:00)
[2025-01-18 09:13] LABS: Basophils # (A) 0.03 10*3/uL (0.00-0.10); Basophils % (A) 0.4 %; Eosinophils # (A) 0.13 10*3/uL (0.04-0.35); Eosinophils % (A) 1.9 %; HCT 43.4 % (39.6-50.0); HGB 14.7 g/dL (13.0-17.0); Lymphocytes # (A) 2.76 10*3/uL (0.90-5.00); Lymphocytes % (A) 40.9 %; MCHC 33.9 g/dL (32.0-37.0); MCV 91.6 fL (80.0-97.0); Monocytes % (A) 7.4 %; Neutrophils # (A) 3.31 10*3/uL (1.80-7.70); Neutrophils % (A) 49.3 %; Platelet Count 190 10*3/uL (140-440); RBC 4.74 10*6/uL (4.40-5.60); RDW 14.1 % (11.5-14.5); WBC 6.74 10*3/uL (4.50-10.00)
[2025-01-18 09:47] LABS: ALT 13 U/L (4-49); AST 17 U/L (17-59); African American GFR (CKD) >90 (>60 ml/min/1.73 sqM); Albumin 4.6 g/dL (3.5-5.0); Alkaline Phosphatase 68 U/L (38-126); Anion Gap 7 mmol/L; Blood Urea Nitrogen 17 mg/dL (9-20); Carbon Dioxide 31 mmol/L (22-30); Chloride 103 mmol/L (98-107); Glucose 88 mg/dL (74-99); Non-African American GFR(CKD) >90 (>60 ml/min/1.73 sqM); Potassium 3.9 mmol/L (3.5-5.1); Sodium 141 mmol/L (137-145); Total Bilirubin 0.5 mg/dL (0.2-1.3); Total Protein 6.8 g/dL (6.3-8.2)
[2025-01-18 11:12] VITALS: BMI 22.3
--- NOTE | 2025-01-18 12:53 | P.PN ---
Progress Note - Text Progress Note Date: 01/18/25 Interval History: Patient was seen wandering the hallways and was directable and agreeable to sp kira with writer technical publications in the office. He looks more bright in affect to which he corroborates stating he feels better today. He reports sleeping well and has noted lower intensity in both his auditory hallucinations and suicidal ideations. He rates his anxiety as 6/10 in severity however states that the Xanax is helpful for this. He reports low depression today. At this time patient denies any homicidal ideations, intent or plan. Patient denies any visual hallucinations and denies any paranoia or delusions. Patient denies any side effects from the medications and has been compliant with meds. Mental Status Exam: General Appearance: Patient appears to be stated age is alert, directable, and cooperative. Behavior: Patient is calmly seated without any agitated behavior. Speech: Patient's speech is fluent and nonpressured. Mood/Affect: Mood is improving mildly, affect is congruent and constricted. Suicidality/Homicidality: Patient denies having any homicidal ideation intent or plan. Patient reports suicidal ideations, lessening in intensity Perceptions: Patient denies any visual hallucinations and reports auditory hallucinations, mild in nature and lessening in intensity Though content/process: There is no evidence of any delusional thought content and thought process is linear and goal-directed. Memory and concentration: AOX3, grossly intact for the purposes of this session Judgment and insight: Improving mildly Assessment Adjustment disorder with depressed mood Psychosis, unspecified OCD Developmental delay Cannabis use disorder Plan: -Patient continues to meet criteria for inpatient psychiatric admission for symptom stabilization and safety. Patient has signed adult voluntary form and medication consent and was placed in patient's chart. -Medications: Continue Geodon 40 mg at 6 PM for psychosis, Luvox 75 mg twice daily for depression/OCD, Lamictal 100 mg at bedtime for mood stabilization -When necessary Xanax and Haldol for agitation/aggression. -Labs: Reviewed, TSH low however ordered free T4 today -SW on board for discharge planning. Encouraged the patient to participate in milieu. Anticipate discharge back home with mom early next week
[2025-01-18 15:45] LABS: Chol/HDL Ratio 4.68 Ratio; LDL Cholesterol,Calculated 106.3 mg/dL (0.0-131.0)
[2025-01-18] MEDS: lamoTRIgine 100 MG TAB PO SCH (20:30)
--- NOTE | 2025-01-19 08:49 | P.PN ---
Progress Note - Text Progress Note Date: 01/19/25 Interval history: Patient was seen wandering the hallways and was directable and agreeable to s peak with policy writer typist. Patient claims that he is still feeling a bit anxious, claims that his mood has been improving. He claims that he feels a bit better today overall. States that he had a difficult time sleeping last night due to the thunderstorms. Claims that he has been going to only some groups. States that he has been eating well tolerating his medications well wants to stay on the same doses of them. At this time patient denies any suicidal or homicidal ideations intent or plan. Denies any visual hallucinations. He claims that his voices have been calming down significantly. Patient denies any side effects from the medications and has been compliant with meds. Mental status exam: General Appearance: Patient appears to be short in stature, thin, disheveled hair, stated age is alert, directable, and cooperative. Behavior: No agitated behavior. Patient is calm and directable attempts to cooperate Speech: Patient's speech is fluent and nonpressured. Mood/Affect: Mood is improving mildly, does claim to have some anxiety, affect is congruent and constricted. Suicidality/Homicidality: Patient denies having any suicidal or homicidal ideation intent or plan. Perceptions: Patient denies any auditory or visual hallucinations. Though content/process: There is no evidence of any delusional thought content and thought process is linear and goal-directed. Memory and concentration: AOX3, grossly intact for the purposes of this session Judgment and insight: Poor, improving mildly Assessment/Plan: Continue with current diagnosis. Patient continues to meet criteria for inpatient psychiatric admission for symptom stabilization and safety. Patient will be maintained on current psychotropic medication regimen. Monitor for medication compliance and for any psychotropic medication side effects. Will continue to monitor ongoing response to treatment. Encouraged participation in milieu.
--- NOTE | 2025-01-20 13:02 | P.PN ---
Progress Note - Text Progress Note Date: 01/20/25 Interval history: Patient was seen wandering the hallways and was directable and agreeable to s peak with director underwriter sales. patient just finished his lunch. He states that his anxiety and mood have been improving. Claims that he feels better overall. Denied any issues overnight claims that he slept fairly. Has been going to groups. He appears to have improvement in his hygiene and grooming. At this time patient denies any suicidal or homicidal ideations intent or plan. Denies any visual hallucinations. He claims that his voices have been calming down significantly. Patient denies any side effects from the medications and has been compliant with meds. Mental status exam: General Appearance: Patient appears to be short in stature, thin, disheveled hair, stated age is alert, directable, and cooperative. Behavior: No agitated behavior. Patient is calm and directable attempts to cooperate Speech: Patient's speech is fluent and nonpressured. Mood/Affect: Mood is improving mildly, does claim to have some anxiety, affect is congruent and constricted. Improving mildly Suicidality/Homicidality: Patient denies having any suicidal or homicidal ideation intent or plan. Perceptions: Patient denies any auditory or visual hallucinations. Though content/process: There is no evidence of any delusional thought content and thought process is linear and goal-directed. Memory and concentration: AOX3, grossly intact for the purposes of this session Judgment and insight: Poor, improving mildly Assessment/Plan: Continue with current diagnosis. Patient continues to meet criteria for inpatient psychiatric admission for symptom stabilization and safety. Patient will be maintained on current psychotropic medication regimen. Monitor for medication compliance and for any psychotropic medication side effects. Will continue to monitor ongoing response to treatment. Encouraged participation in milieu.
--- NOTE | 2025-01-21 11:44 | P.PN ---
Progress Note - Text Progress Note Date: 01/21/25 Interval history: Patient was seen wandering the hallways and was directable and agreeable to s peak with magazine writer. Patient has been going to groups. Appears to have improvement in hygiene and grooming. Claims that his mood and anxiety have been improving. Claims that he feels better overall. Denied any issues overnight claims that he slept fairly. At this time patient denies any suicidal or homicidal ideations intent or plan. Denies any visual hallucinations. He claims that his voices have been calming down significantly. Patient denies any side effects from the medications and has been compliant with meds. Mental status exam: General Appearance: Patient appears to be short in stature, thin, disheveled hair, stated age is alert, directable, and cooperative. Behavior: No agitated behavior. Patient is calm and directable attempts to cooperate Speech: Patient's speech is fluent and nonpressured. Mood/Affect: Mood is improving mildly, does claim to have some anxiety, affect is congruent and Improving mildly Suicidality/Homicidality: Patient denies having any suicidal or homicidal ideation intent or plan. Perceptions: Patient denies any auditory or visual hallucinations. Though content/process: There is no evidence of any delusional thought content and thought process is linear and goal-directed. Memory and concentration: AOX3, grossly intact for the purposes of this session Judgment and insight: improving mildly Assessment/Plan: Continue with current diagnosis. Patient continues to meet criteria for inpatient psychiatric admission for symptom stabilization and safety. Patient will be maintained on current psychotropic medication regimen. Monitor for medication compliance and for any psychotropic medication side effects. Will continue to monitor ongoing response to treatment. Encouraged participation in milieu. Possible discharge tomorrow if patient is doing well and has a safe discharge plan.
--- NOTE | 2025-01-22 04:22 | P.MDCNMH ---
History of Present Illness H&P Date: 01/20/25 34-year-old male who was brought in here for mental health evaluation Patient denies any medical concerns at this time , denies any fever, chills, cough, sore throat, chest pain , trouble breathing , nausea , vomiting, abd pain , changes in urinary or bowel habits. Patient denies smoking alcohol abuse or drug abuse review of systems Pertinent positives as noted in HPI. All other systems were reviewed and are negative on exam Constitutional: No acute distress, conversant, pleasant Eyes: Anicteric sclerae, moist conjunctiva, Pupils equal round reactive to light ENMT: NC/AT Oropharynx clear, no erythema, or exudates Lungs: Clear to auscultation Clear to percussion Normal respiratory effort, no accessory muscle use Cardiovascular: Heart regular in rate and rhythm, No murmurs, gallops, or rubs No peripheral edema Abdominal: Soft Nontender, no guarding, rebound or rigidity Abdomen moving with respiration Normoactive bowel sounds Extremities: No digital cyanosis Pedal pulses intact and symmetrical Radial pulses intact and symmetrical No calf tenderness Psychiatric: Alert and oriented to person, place and time Neuro Muscles Strength 5/5 in all 4 extremities Assessment and plan Depression suicidal ideation Management per psych Blood work overall unremarkable white count 6 hemoglobin 14.7 Renal function unremarkable sodium 141 potassium 3.9 BUN 17 creatinine 0.8 Urine drug screen positive for marijuana Acute respiratory viral panel negative Stable from medical standpoint Thank you for this consultation Past Medical History Past Medical History: GERD/Reflux, GI Bleed Additional Past Medical History / Comment(s): tremors, CROHN'S, KIDNEY STONES, MENTAL HEALTH ISSUES-MOM LEGAL GUARDIAN FOR MEDS AND MEDICAL CARE ONLY. PT IS A BLE TO MAKE DECISIONS FOR HIMSELF,IBS History of Any Multi-Drug Resistant Organisms: None Reported Past Surgical History: Tonsillectomy Additional Past Surgical History / Comment(s): wisdom teeth removed. Past Anesthesia/Blood Transfusion Reactions: No Reported Reaction Additional Past Anesthesia/Blood Transfusion Reaction / Comment(s): NEVER HAD BLOOD TRANSFUSION Past Psychological History: ADD/ADHD, Anxiety, Bipolar, Depression, PTSD Additional Psychological History / Comment(s): OCD Smoking Status: Former smoker Past Alcohol Use History: None Reported Additional Past Alcohol Use History / Comment(s): PAST HX OF ALCOHOL ABUSE. He is currently living at home with his parents. MOM STATES PT QUIT SMOKING 21 DAYS AGO-HAS NICOTINE PATCH Past Drug Use History: None Reported Additional Drug Use History / Comment(s): NO LONGER USING MARIJUANA - Past Family History Sister(s) Additional Family Medical History / Comment(s): He has one sister that is healthy. He also has a 4-year-old daughter that is healthy. Father Family Medical History: GERD/Reflux Additional Family Medical History / Comment(s): DAD HAS ALSO NEVER BEEN AN ALCOHOLIC-RARELY, RARELY DRINKS. Mother Family Medical History: Cancer Additional Family Medical History / Comment(s): MOM STATES SHE HAS NEVER BEEN AN ALCOHOLIC-MOM RARELY ,RARELY DRINKS. HX THYROID CANCER Medications and Allergies Home Medications Medication Instructions Recorded Confirmed Type Omeprazole [PriLOSEC] 20 mg PO AC-BRKFST 30 Days #30 cap 07/21/24 01/17/25 Rx fluvoxaMINE MALEATE 50 mg PO BID 30 Days #60 tab 07/21/24 01/17/25 Rx ALPRAZolam [Xanax] 1 mg PO TID 01/17/25 01/17/25 History Acetaminophen-Codeine 300-30mg 1 tab PO Q12H PRN 01/17/25 01/17/25 History [Tylenol w/codeine #3] Atorvastatin [Lipitor] 20 mg PO HS 01/17/25 01/17/25 History Docusate [Colace] 100 mg PO BID PRN 01/17/25 01/17/25 History lamoTRIgine [LaMICtal] 100 mg PO HS 01/17/25 01/17/25 History Allergies Allergy/AdvReac Type Severity Reaction Status Date / Time aripiprazole [From Abilify] Allergy Unknown Agitation Verified 01/17/25 11:28 cariprazine [From Vraylar] Allergy Unknown Agitation Verified 01/17/25 11:28 citalopram [From Celexa] Allergy Unknown Agitation Verified 01/17/25 11:28 divalproex sodium Allergy Unknown Agitation Verified 01/17/25 11:28 [From Depakote] paroxetine [From Paxil] Allergy Unknown Agitation Verified 01/17/25 11:28 sertraline [From Zoloft] Allergy Unknown Agitation Verified 01/17/25 11:28 metoclopramide [From Reglan] Allergy Rash/Hives Verified 01/17/25 11:28 prochlorperazine Allergy Anaphylaxis Verified 01/17/25 11:28 [From Compazine] phenobarbital AdvReac Severe Rapid Verified 01/17/25 11:28 Heart Rate zolpidem tartrate AdvReac Unknown Altered Verified 01/17/25 11:28 [From Ambien] Mental Status atropine [From Lomotil] AdvReac Rapid Verified 01/17/25 11:28 Heart Rate dicyclomine [From Bentyl] AdvReac Rapid Verified 01/17/25 11:28 Heart Rate diphenhydramine AdvReac Hallucinati Verified 01/17/25 11:28 [From Benadryl] ons diphenoxylate [From Lomotil] AdvReac Rapid Verified 01/17/25 11:28 Heart Rate estropipate [From Ogen 2.5] AdvReac Twitching Verified 01/17/25 11:28 of Legs haloperidol [From Haldol] AdvReac Agitation Verified 01/17/25 11:28 ketorolac [From Toradol] AdvReac Unknown Verified 01/17/25 11:28 lorazepam [From Ativan] AdvReac Hallucinati Verified 01/17/25 11:28 ons methylprednisolone AdvReac Altered Verified 01/17/25 11:28 [From Solu-Medrol] Mental Status Milk Containing Products AdvReac Diarrhea Verified 01/17/25 13:08 (Dairy) ondansetron [From Zofran] AdvReac Unknown Verified 01/17/25 11:28 Physical Exam Vitals: Vital Signs Temp Pulse Resp BP Pulse Ox 01/21/25 21:00 97.1 F L 62 18 111/71 99 01/21/25 09:00 97.0 F L 62 16 98/55 99 Intake and Output 01/21/25 01/21/25 01/22/25 14:59 22:59 06:59 Other: Weight 63.5 kg Cranial Nerve Examination - Cranial Nerves Cranial Nerve II- Optic: Intact Cranial Nerve III- Oculomotor: Intact Cranial Nerve IV- Trochlear: Intact Cranial Nerve V- Trigeminal: Intact Cranial Nerve - Abducens: Intact Cranial Nerve VII- Facial: Intact Cranial Nerve VIII- Auditory: Intact Cranial Nerve IX- Glossopharyngeal: Intact Cranial Nerve X- Vagus: Intact Cranial Nerve XI- Accessory: Intact Cranial Nerve XII- Hypoglossal: Intact Results CBC & Chem 7: 01/18/25 08:47 01/18/25 08:47
[2025-01-22 09:44] VITALS: RESP 16
--- NOTE | 2025-01-22 11:56 | P.PN ---
Progress Note - Text Progress Note Date: 01/22/25 Interval History: Patient was seen wandering the hallways and was directable and agreeable to sandhya malone with residential mortgage underwriter in the office. I spoke with the patient he notes that after he received the Prolixin shot he had an adverse reaction. He notes that he was having shakes and could not move his lower half of his body. He notes that he no longer has auditory hallucinations with the Geodon. He denies any visual hallucinations or paranoia. He notes that he is not currently depressed and he describes his anxiety is mild. He notes no problems with sleep, energy, appetite and concentration. We discussed safety plan including 911 and [phone]. During the interview the patient continued to mention that his IBS is a problem which triggers his depression and ruminating on PTSD thoughts. Additionally the patient was present and gave permission to speak to his mother Joya about discharge tomorrow. She voiced no opposition and notes that all she needs is a psychiatrist close to where she lives. Overall he denies any side effects with the medications. Mental Status Exam: General Appearance: Patient presented unshaved in a hospital gown but was alert and attentive Behavior: Patient is calmly seated without any agitated behavior. Speech: Patient's speech is fluent and nonpressured. Mood/Affect: Mood is improving mildly, affect is congruent and constricted. Suicidality/Homicidality: Patient denies having any suicidal or homicidal ideation intent or plan. Perceptions: Patient denies any visual hallucinations and denies any auditory hallucinations Though content/process: There is no evidence of any delusional thought content and thought process is linear and goal-directed. Memory and concentration: AOX3, grossly intact for the purposes of this session Judgment and insight: Improving mildly Diagnosis: Adjustment disorder with depressed mood Psychosis, unspecified OCD Developmental delay Cannabis use disorder Assessment: The patient appears to be almost at baseline and will be ready for discharge tomorrow. Speaking with his mother she notes that the Prolixin had caused problems therefore with this will not be continued. PLAN: -Patient is admitted under voluntary status to [facility] for stabilization of psychiatric symptoms and safety. Patient has signed adult voluntary form and and is placed in patient's chart. -Medications : [email or web address] Geodon to 40 mg at 6 PM for psychosis Luvox to 75 mg twice daily for OCD/depression Lamictal 100 mg at bedtime for mood stabilization Xanax 1mg three time daily as needed for anxiety - Xanax and Haldol PRN for agitation/aggression -Patient was counselled on substance abuse and desired to cut back on use -Patient was informed of the risks, benefits and side effects of the medication and patient verbally consented to taking the medications. Patient signed med consent form and was placed in chart. Patient offered and declined patient education sheet for psychotropic medications. -Internal Medicine consult to perform medical evaluation and physical. -NRT -not needed as patient does not smoke -SW on board for discharge planning. Encourage patient to participate in groups to work on coping skills.
[2025-01-23 08:15] VITALS: BP 117/70; PULSE 64; TEMP 97.8
--- NOTE | 2025-01-23 09:23 | P.DS ---
Providers Date of admission: 01/17/25 09:41 Admission HPI: Admission note was completed by Dr. Valdivia "Patient presented to the hospital with suicidal ideations and hearing voices. Patient also superficially cut his left wrist. Per EPS, "Pt. on his back with knees pulled to his chest and head lifted off the bed. Pt, who is disheveled with hair unwashed is rocking back and forth. Pt. admits to anxiety 8/10 and SI. Pt. tearful when telling information writer that he has had a marked increase of auditory hallucinations especially from electronics such as the TV and cell phone Pt claims the beeping monitors in the ED are communicating with him. Pt's. guardian brought pt in due to the preceding issues as well as self harm by cutting his forearm. Pt. feels extreemly overwelmed and wants treatment. Pt states "I really need you vito's to help me. As long as it takes. I'll go as long as it takes to get better". Pt claims compliance with medication. Pt admits to marijuana use dening other substances. Urine positive for benzodiazepines and opiates which he is prescribed. Pt's mother/guardian contacted for further information. Mother claims the pt has been adherent to his medication regimen but that he has not had a psychiatrist since his previous psychiatrist closed the office. Pt has severe panic attacks and has OCD which is "out of control"." Patient seen and evaluated on the unit and was agreeable with speaking to information writer in office. He states ever since being diagnosed with IBS back in March 2024 his mental health has suffered. He states struggling with abdominal pain and constipation and given that there is no cure this is led to feelings of helplessness. He states he has not been able to see his daughter due to the severity of his symptoms. He states feeling as though his mood symptoms worsened in the spring time due to past memories of him being forced to stay indoors due to the severity of his OCD. He states his OCD involves the need to have other people doing small tasks for him such as picking things up or opening up the door. He denies any sleep or appetite difficulties, concentration difficulties or low energy. He does report helplessness and anhedonia and states his suicidal ideations have been waxing and waning. He states that the auditory hallucinations however are constant described as repeating everything he says. He did not appear internally preoccupied during encounter. Patient denies any homicidal ideations intent or plan. At this time patient denies any visual hallucinations. Patient denies any flight of ideas racing thoughts and increased in goal directed behavior. Patient admits to using no substances, stated that he last used cannabis a week ago and that he last used nicotine 1 month ago." Hospital course: Upon admission to the unit patient was directable and agreeable to commence treatment and signed adult voluntary form. The patient presented no problems on the unit and as his admission progressed his suicidal thoughts resolved. It was discussed about restarting the Prolixin injection however per patient and mother it appears to have caused severe EPS. The patient was instead started on a different antipsychotic. Patient got along well with other patients on the unit and followed unit protocol. Patient was compliant with the medications and denied any side effects throughout hospital course. Patient was started on Geodon, Xanax, Lamictal and Luvox. Patient spoke of his stressors and engaged in therapy both group and individual. Patient was also seen by medical team for history and physical exam. Throughout the course of the hospitalization patient gradually improved with regards to mood, anxiety, sleep and returned back to their baseline level of functioning became more future oriented with improved insight and judgment. On the day of discharge patient denied any suicidal or homicidal ideations intent or plan denied any auditory or visual hallucinations. Patient endorsed wanting to live for their health and family. The patient denied any access to guns or weapons. Patient denied any paranoia and did not endorse any delusions. Patient does not have a significant history of substance abuse and was counseled on abstaining from all substances including alcohol and marijuana. Patient was also counseled on the medications and need for regular compliance and was encouraged to follow-up with their outpatient appointment for mental health and also for primary care. Prior to discharge a family meeting will be arranged by social services coordinator to answer any questions and ensure safety upon discharge incuding making sure that guns/weapons are either removed from the home or locked away. Day of discharge patient denied any psychotic symptoms including auditory or visual hallucinations. He notes that he is not paranoid. He denied any suicidal or homicidal ideations and was able to voice a safety plan including 911 and [phone]. He denied any ongoing depression or anxiety. He notes that his sleep, energy, appetite and concentration are normal. Patient had voiced looking forward to returning home. Mental status exam: General Appearance: Patient appears to be his stated age is alert, pleasant, and cooperative. Patient is in no acute distress and has improved hygiene and grooming Behavior: Patient is calmly seated without any agitated behavior. Speech: Patient's speech is fluent and nonpressured. Mood/Affect: Patient reports their mood is "better good", affect is congruent and euthymic. Suicidality/Homicidality: Patient denies having any suicidal or homicidal ideation intent or plan. Perceptions: Patient denies any auditory or visual hallucinations. Though content/process: There is no evidence of any delusional thought content and thought process is linear and goal-directed. More future oriented Memory and concentration: AOX3, grossly intact for the purposes of this session. Can spell "WORLD" backwards correctly. Judgment and insight: Chronically poor, however has improved with guarded prognosis Impression: Adjustment disorder with depressed mood Psychosis, unspecified OCD Developmental delay Cannabis use disorder Plan: -Continue with discharge today as patient has improved and stabilized psychiatrically and is not currently an imminent threat to themself and/or others. -Continue medications: Geodon to 40 mg at 6 PM for psychosis Luvox to 75 mg twice daily for OCD/depression Lamictal 100 mg at bedtime for mood stabilization Xanax 1mg three time daily as needed for anxiety -Patient was counseled on the need for medication compliance and appropriate follow-up at mental health and also primary care for medical issues. Patient verbalized understanding and agreed. -Social work to help coordinate patients discharge today arrange for and conduct family meeting to ensure safety upon discharge and answer any questions/concerns. also to ensure safe home environment that guns/weapons are either removed from the home or locked away. Social work also to arrange for patients follow up appointments with [facility] for psychiatric care along with follow up with primary care provider. -Patient counseled on abstaining from recreational drugs and marijuana and alcohol. Was informed/educated on the adverse effects on their physical and mental health. Patient verbally agreed and understood. -Patient was instructed to return to the hospital or seek immediate medical care if their psychiatric or medical symptoms do worsen or reoccur. Expected date of discharge: 01/23/25 Attending physician: Laura Valdivia MD Consults: 01/17/25 09:46 Consult Physician Routine Consulting Provider: Virgie Cope Consult Reason/Comments: H and p Do you want consulting provider notified?: Yes Primary care physician: Jose Desai MD - Discharge Diagnosis(es) (1) Depression Current Visit: Yes Status: Chronic Priority: Medium (2) Psychosis Current Visit: Yes Status: Resolved Priority: Low (3) Suicidal ideation Current Visit: Yes Status: Resolved Priority: Low (4) PTSD (post-traumatic stress disorder) Current Visit: No Status: Chronic Priority: Medium Patient Condition at Discharge: Good Plan - Discharge Summary Discharge Rx Participant: No New Discharge Prescriptions: New Ziprasidone [Geodon] 40 mg PO 1800 30 Days cap Nicotine 14Mg/24Hr Patch [Habitrol] 1 patch TRANSDERM DAILY #14 patch fluvoxaMINE [Luvox] 75 mg PO BID 30 Days tab ALPRAZolam [Xanax] 1 mg PO TID PRN tab PRN Reason: Anxiety Continue ALPRAZolam [Xanax] 1 mg PO TID Atorvastatin [Lipitor] 20 mg PO HS 30 Days tab Omeprazole [PriLOSEC] 20 mg PO AC-BRKFST 30 Days #30 cap Docusate [Colace] 100 mg PO BID PRN PRN Reason: Constipation lamoTRIgine [LaMICtal] 100 mg PO HS Discontinued Acetaminophen-Codeine 300-30mg [Tylenol w/codeine #3] 1 tab PO Q12H PRN PRN Reason: Abdominal pain,IBS flare fluvoxaMINE MALEATE 50 mg PO BID 30 Days #60 tab Discharge Medication List Omeprazole [PriLOSEC] 20 mg PO AC-BRKFST 30 Days #30 cap 07/21/24 [Rx] ALPRAZolam [Xanax] 1 mg PO TID 01/17/25 [History] Docusate [Colace] 100 mg PO BID PRN 01/17/25 [History] lamoTRIgine [LaMICtal] 100 mg PO HS 01/17/25 [History] ALPRAZolam [Xanax] 1 mg PO TID PRN tab 01/23/25 [Rx] Atorvastatin [Lipitor] 20 mg PO HS 30 Days tab 01/23/25 [Rx] Nicotine 14Mg/24Hr Patch [Habitrol] 1 patch TRANSDERM DAILY #14 patch 01/23/25 [Rx] Ziprasidone [Geodon] 40 mg PO 1800 30 Days cap 01/23/25 [Rx] fluvoxaMINE [Luvox] 75 mg PO BID 30 Days tab 01/23/25 [Rx] Follow up Appointment(s)/Referral(s): Jose Desai MD [Primary Care Provider] - 1-2 days Patient Instructions/Handouts: Mood Disorders (DC), Depression (DC) Activity/Diet/Wound Care/Special Instructions: Avoid the use of street drugs and alcohol. Take all medications as prescribed. When you are in need of refills on your medications, please contact your medical provider and/or outpatient psychiatrist/provider to have this done. Please go to your scheduled outpatient appointment for aftercare treatment. If symptoms return or become worse, call the crisis line at and/or go to the nearest emergency room for evaluation. National Suicide Hotline [address] [facility] confidentiality statement: "The information contained in this communication, including attachments, is confidential, may be privileged, and is intended only for the use of the named recipient(s). Unauthorized use, disclosure, forwarding or copying is strictly prohibited and may be unlawful. If you have received this communication in error, please notify me IMMEDIATELY at the phone number or pager listed above. Discharge Disposition: HOME SELF-CARE
== END 2025-01-23 14:45 | disposition home or self-care (01) | DRG 881 ==
LOC: EC 04:37 → 3MHU 09:41
PROVIDERS: ADMIT Psychiatry & Neurology Psychiatry; ATTEND Psychiatry & Neurology Psychiatry
DX: F43.21 Adjustment disorder with depressed mood (principal); F29 Unspecified psychosis not due to a substance or known physiological condition; S61.512A Laceration without foreign body of left wrist, initial encounter; F12.10 Cannabis abuse, uncomplicated; K50.90 Crohn's disease, unspecified, without complications; R45.851 Suicidal ideations; X78.9XXA Intentional self-harm by unspecified sharp object, initial encounter; F31.9 Bipolar disorder, unspecified; F42.9 Obsessive-compulsive disorder, unspecified; R62.50 Unspecified lack of expected normal physiological development in childhood; K21.9 Gastro-esophageal reflux disease without esophagitis; F43.10 Post-traumatic stress disorder, unspecified; F41.0 Panic disorder [episodic paroxysmal anxiety]; F90.9 Attention-deficit hyperactivity disorder, unspecified type; Z91.52 Personal history of nonsuicidal self-harm; Z87.891 Personal history of nicotine dependence; Z79.899 Other long term (current) drug therapy; Z88.8 Allergy status to other drugs, medicaments and biological substances; Z11.52 Encounter for screening for COVID-19
CPT/HCPCS: 80053; 80061; 80306; 81003; 82075; 83036; 84439; 84443; 85025; 87636; 99285

== ENCOUNTER 2025-01-28 02:49 | Emergency (ER) | payer MEDICARE, OTHER ==
[2025-01-28 02:55] VITALS: RESP 18; TEMP 97.9
--- NOTE | 2025-01-28 03:38 | ED ---
Nausea/Vomiting/Diarrhea HPI - General Chief complaint: Nausea/Vomiting/Diarrhea Stated complaint: Abd Pain Time Seen by Provider: 01/28/25 03:11 Source: patient Mode of arrival: ambulatory Limitations: no limitations - History of Present Illness Initial comments: This patient is a 34-year-old man with history of irritable bowel syndrome who presents with complaint that his symptoms have been flaring up for the past 2 to 3 days. He is having multiple watery bowel movements each of the past few days. He is having abdominal cramping and states that he has had some intermittent nausea. No fever or chills. No vomiting. No change in urination. MD complaint: diarrhea, abdominal pain Onset/Timin -: days(s) Description of Diarrhea: water Associated Abdominal Pain: Yes Location: diffuse Radiation: none Severity: moderate Quality: cramping Consistency: intermittent Improves with: none Worsens with: none Associated Symptoms: denies other symptoms - Related Data Home Medications Medication Instructions Recorded Confirmed ALPRAZolam [Xanax] 1 mg PO TID 01/17/25 01/17/25 Docusate [Colace] 100 mg PO BID PRN 01/17/25 01/17/25 lamoTRIgine [LaMICtal] 100 mg PO HS 01/17/25 01/17/25 Previous Rx's Medication Instructions Recorded Omeprazole [PriLOSEC] 20 mg PO AC-BRKFST 30 Days #30 cap 07/21/24 ALPRAZolam [Xanax] 1 mg PO TID PRN tab 01/23/25 Atorvastatin [Lipitor] 20 mg PO HS 30 Days tab 01/23/25 Nicotine 14Mg/24Hr Patch [Habitrol] 1 patch TRANSDERM DAILY #14 patch 01/23/25 Ziprasidone [Geodon] 40 mg PO 1800 30 Days cap 01/23/25 fluvoxaMINE [Luvox] 75 mg PO BID 30 Days tab 01/23/25 Allergies Allergy/AdvReac Type Severity Reaction Status Date / Time aripiprazole [From Abilify] Allergy Unknown Agitation Verified 02/06/25 16:58 cariprazine [From Vraylar] Allergy Unknown Agitation Verified 02/06/25 16:58 citalopram [From Celexa] Allergy Unknown Agitation Verified 02/06/25 16:58 divalproex sodium Allergy Unknown Agitation Verified 02/06/25 16:58 [From Depakote] paroxetine [From Paxil] Allergy Unknown Agitation Verified 02/06/25 16:58 sertraline [From Zoloft] Allergy Unknown Agitation Verified 02/06/25 16:58 metoclopramide [From Reglan] Allergy Rash/Hives Verified 02/06/25 16:58 prochlorperazine Allergy Anaphylaxis Verified 02/06/25 16:58 [From Compazine] phenobarbital AdvReac Severe Rapid Verified 02/06/25 16:58 Heart Rate zolpidem tartrate AdvReac Unknown Altered Verified 02/06/25 16:58 [From Ambien] Mental Status atropine [From Lomotil] AdvReac Rapid Verified 02/06/25 16:58 Heart Rate dicyclomine [From Bentyl] AdvReac Rapid Verified 02/06/25 16:58 Heart Rate diphenhydramine AdvReac Hallucinati Verified 02/06/25 16:58 [From Benadryl] ons diphenoxylate [From Lomotil] AdvReac Rapid Verified 02/06/25 16:58 Heart Rate estropipate [From Ogen 2.5] AdvReac Twitching Verified 02/06/25 16:58 of Legs haloperidol [From Haldol] AdvReac Agitation Verified 02/06/25 16:58 ketorolac [From Toradol] AdvReac Unknown Verified 02/06/25 16:58 lorazepam [From Ativan] AdvReac Hallucinati Verified 02/06/25 16:58 ons methylprednisolone AdvReac Altered Verified 02/06/25 16:58 [From Solu-Medrol] Mental Status Milk Containing Products AdvReac Diarrhea Verified 02/06/25 16:58 (Dairy) ondansetron [From Zofran] AdvReac Unknown Verified 02/06/25 16:58 Review of Systems ROS Statement: Those systems with pertinent positive or pertinent negative responses have been documented in the HPI. ROS Other: All systems not noted in ROS Statement are negative. Constitutional: Denies: fever, chills, weakness Respiratory: Denies: cough, dyspnea Cardiovascular: Denies: chest pain, palpitations, edema Gastrointestinal: Reports: as per HPI, abdominal pain, nausea, diarrhea. Denies: vomiting, constipation, hematemesis, melena, hematochezia Genitourinary: Denies: dysuria, hematuria, testicular pain, testicular mass Musculoskeletal: Denies: back pain Skin: Denies: rash Neurological: Denies: headache, weakness, numbness Past Medical History Past Medical History: GERD/Reflux, GI Bleed Additional Past Medical History / Comment(s): tremors, CROHN'S, KIDNEY STONES, MENTAL HEALTH ISSUES-MOM LEGAL GUARDIAN FOR MEDS AND MEDICAL CARE ONLY. PT IS ABLE TO MAKE DECISIONS FOR HIMSELF,IBS History of Any Multi-Drug Resistant Organisms: None Reported Past Surgical History: Tonsillectomy Additional Past Surgical History / Comment(s): wisdom teeth removed. Past Anesthesia/Blood Transfusion Reactions: No Reported Reaction Additional Past Anesthesia/Blood Transfusion Reaction / Comment(s): NEVER HAD BLOOD TRANSFUSION Past Psychological History: ADD/ADHD, Anxiety, Bipolar, Depression, PTSD Smoking Status: Former smoker Past Alcohol Use History: None Reported Past Drug Use History: None Reported - Past Family History Sister(s) Additional Family Medical History / Comment(s): He has one sister that is healthy. He also has a 4-year-old daughter that is healthy. Father Family Medical History: GERD/Reflux Additional Family Medical History / Comment(s): DAD HAS ALSO NEVER BEEN AN ALCOHOLIC-RARELY, RARELY DRINKS. Mother Family Medical History: Cancer Additional Family Medical History / Comment(s): MOM STATES SHE HAS NEVER BEEN AN ALCOHOLIC-MOM RARELY ,RARELY DRINKS. HX THYROID CANCER General Exam Limitations: no limitations General appearance: alert, in no apparent distress Head exam: Present: atraumatic, normocephalic Eye exam: Present: normal appearance. Absent: scleral icterus, conjunctival injection Neck exam: Present: normal inspection Respiratory exam: Present: normal lung sounds bilaterally. Absent: respiratory distress, wheezes, rales, rhonchi, stridor, accessory muscle use Cardiovascular Exam: Present: regular rate, normal rhythm, normal heart sounds. Absent: systolic murmur, diastolic murmur, rubs, gallop GI/Abdominal exam: Present: soft. Absent: distended, tenderness, guarding, rebound, rigid, mass, pulsatile mass, hernia Extremities exam: Present: normal inspection, normal capillary refill. Absent: pedal edema, calf tenderness Back exam: Present: normal inspection. Absent: CVA tenderness (R), CVA tenderness (L) Neurological exam: Present: alert Skin exam: Present: warm, dry, intact, normal color. Absent: rash Course Vital Signs 01/28/25 01/28/25 02:53 05:59 Temperature 97.9 F Pulse Rate 90 79 Respiratory 18 18 Rate Blood Pressure 122/74 124/72 O2 Sat by Pulse 100 100 Oximetry Medical Decision Making - Medical Decision Making Was pt. sent in by a medical professional or institution (, LINO, MOTOR REBUILDER, urgent care, hospital, or jail...) When possible be specific @ -[No] Did you speak to anyone other than the patient for history (EMS, parent, family, police, friend...)? What history was obtained from this source @ -[No] Did you review nursing and triage notes (agree or disagree)? Why? @ -[I reviewed and agree with nursing and triage notes] Were old charts reviewed (outside hosp., previous admission, EMS record, old EKG, old radiological studies, urgent care reports/EKG's, jail records)? Report findings @ -[No old charts were reviewed] Differential Diagnosis (chest pain, altered mental status, abdominal pain women, abdominal pain men, vaginal bleeding, weakness, fever, dyspnea, syncope, headache, dizziness, GI bleed, back pain, seizure, CVA, palpatations, mental health, musculoskeletal)? @ -Differential Abdominal Pain Men: Appendicitis, cholecystitis, diverticulosis, ischemic bowel, pancreatitis, hepatitis, UTI, gastroenteritis, AAA, incarcerated hernia, bowel obstruction, constipation, inflammatory bowel, hepatitis, peptic ulcer disease, splenic infarction, perforated viscus, testicular torsion, this is not meant to be an all-inclusive list EKG interpreted by me (3pts min.). @ -[As above] X-rays interpreted by me (1pt min.). @ -[None done] CT interpreted by me (1pt min.). @ -[None done] U/S interpreted by me (1pt. min.). @ -[None done] What testing was considered but not performed or refused? (CT, X-rays, U/S, labs)? Why? @ -[None] What meds were considered but not given or refused? Why? @ -[None] Did you discuss the management of the patient with other professionals (professionals i.e. LINO Patel, MOTOR REBUILDER, lab, RT, psych nurse, social work program coordinator, metal caster, teacher, conservation officer, protective services case worker)? Give summary @ -[No] Was smoking cessation discussed for >3mins.? @ -[No] Was critical care preformed (if so, how long)? @ -[No] Were there social determinants of health that impacted care today? How? (Homelessness, low income, unemployed, alcoholism, drug addiction, transportation, low edu. Level, literacy, decrease access to med. care, assisted, rehab)? @ -[No] Was there de-escalation of care discussed even if they declined (Discuss DNR or withdrawal of care, Hospice)? DNR status @ -[No] What co-morbidities impacted this encounter? (DM, HTN, Smoking, COPD, CAD, Cancer, CVA, ARF, Chemo, Hep., AIDS, mental health diagnosis, sleep apnea, morbid obesity)? @ -[None] Was patient admitted / discharged? Hospital course, mention meds given and route, prescriptions, significant lab abnormalities, going to OR and other pertinent info. @ -[Patient is a 34-year-old man with chronic episodic abdominal pain. The patient is having another flareup of his pain. The physical examination and the workup not indicating any acute surgical condition on top of his chronic pain. The patient is feeling slightly better and would like to go home. Discussed appropriate further care and follow-up as well as return parameters. Undiagnosed new problem with uncertain prognosis? @ -[No] Drug Therapy requiring intensive monitoring for toxicity (Heparin, Nitro, Insulin, Cardizem)? @ -[No] Were any procedures done? @ -[No] Diagnosis/symptom? @ -[Acute on chronic abdominal pain Acute, or Chronic, or Acute on Chronic? @ -[ Uncomplicated (without systemic symptoms) or Complicated (systemic symptoms)? @ -[Uncomplicated Side effects of treatment? @ -[No] Exacerbation, Progression, or Severe Exacerbation? @ -[No] Poses a threat to life or bodily function? How? (Chest pain, [place], [place], pneumonia, PE, COPD, DKA, ARF, appy, cholecystitis, CVA, Diverticulitis, Homicidal, Suicidal, threat to staff... and all critical care pts) @ -[No] All treatments are based on ideal body weight as in ED triage - Lab Data Result diagrams: 01/28/25 03:23 01/28/25 03:23 Lab Results 01/28/25 01/28/25 Range/Units 03:23 03:23 WBC 9.20 (4.50-10.00) 10*3/uL RBC 4.29 L (4.40-5.60) 10*6/uL Hgb 13.3 (13.0-17.0) g/dL Hct 38.9 L (39.6-50.0) % MCV 90.7 (80.0-97.0) fL MCH 31.0 (27.0-32.0) pg MCHC 34.2 (32.0-37.0) g/dL Plt Count 195 (140-440) 10*3/uL MPV 10.7 (9.5-12.2) fL Immature Gran % (Auto) 1.2 % Neutrophils % 62.7 % Lymphocytes % 25.7 % Monocytes % 8.0 % Eosinophils % 1.6 % Basophils % 0.8 % Immature Gran # 0.11 H (0.00-0.04) 10*3/uL Neutrophils # 5.77 (1.80-7.70) 10*3/uL Lymphocytes # 2.36 (0.90-5.00) 10*3/uL Monocytes # 0.74 (0.20-1.00) 10*3/uL Eosinophils # 0.15 (0.04-0.35) 10*3/uL Basophils # 0.07 (0.00-0.10) 10*3/uL Sodium 136 L (137-145) mmol/L Potassium 3.7 (3.5-5.1) mmol/L Chloride 97 L (98-107) mmol/L Carbon Dioxide 30 (22-30) mmol/L Anion Gap 9 mmol/L BUN 16 (9-20) mg/dL Creatinine 0.64 L (0.66-1.25) mg/dL Est GFR (CKD-EPI)AfAm >90 (>60 ml/min/1.73 sqM) Est GFR (CKD-EPI)NonAf >90 (>60 ml/min/1.73 sqM) Glucose 113 H (74-99) mg/dL Calcium 9.8 (8.4-10.2) mg/dL Total Bilirubin 0.3 (0.2-1.3) mg/dL AST 55 (17-59) U/L ALT 76 H (4-49) U/L Alkaline Phosphatase 97 (38-126) U/L C-Reactive Protein <0.5 (<1.0) mg/dL Total Protein 6.4 (6.3-8.2) g/dL Albumin 4.3 (3.5-5.0) g/dL Disposition Clinical Impression: Abdominal pain, Acute diarrhea Disposition: HOME SELF-CARE Condition: Good Instructions (If sedation given, give patient instructions): Acute Diarrhea (ED) Is patient prescribed a controlled substance at d/c from ED?: No Referrals: Sumeet Mejias III, MD [Primary Care Provider] - 1-2 days
[2025-01-28 03:42] LABS: Basophils # (A) 0.07 10*3/uL (0.00-0.10); Basophils % (A) 0.8 %; Eosinophils # (A) 0.15 10*3/uL (0.04-0.35); Eosinophils % (A) 1.6 %; HCT 38.9 % (39.6-50.0); HGB 13.3 g/dL (13.0-17.0); Lymphocytes # (A) 2.36 10*3/uL (0.90-5.00); Lymphocytes % (A) 25.7 %; MCHC 34.2 g/dL (32.0-37.0); MCV 90.7 fL (80.0-97.0); Mean Platelet Volume 10.7 fL (9.5-12.2); Monocytes # (A) 0.74 10*3/uL (0.20-1.00); Neutrophils # (A) 5.77 10*3/uL (1.80-7.70); Neutrophils % (A) 62.7 %; Platelet Count 195 10*3/uL (140-440); RBC 4.29 10*6/uL (4.40-5.60); RDW 14.5 % (11.5-14.5)
[2025-01-28 03:57] LABS: ALT 76 U/L (4-49); AST 55 U/L (17-59); African American GFR (CKD) >90 (>60 ml/min/1.73 sqM); Albumin 4.3 g/dL (3.5-5.0); Alkaline Phosphatase 97 U/L (38-126); Anion Gap 9 mmol/L; Blood Urea Nitrogen 16 mg/dL (9-20); C Reactive Protein <0.5 mg/dL (<1.0); Calcium 9.8 mg/dL (8.4-10.2); Carbon Dioxide 30 mmol/L (22-30); Chloride 97 mmol/L (98-107); Glucose 113 mg/dL (74-99); Non-African American GFR(CKD) >90 (>60 ml/min/1.73 sqM); Potassium 3.7 mmol/L (3.5-5.1); Sodium 136 mmol/L (137-145); Total Bilirubin 0.3 mg/dL (0.2-1.3); Total Protein 6.4 g/dL (6.3-8.2)
[2025-01-28 06:00] VITALS: BP 124/72; PULSE 79
== END 2025-01-28 05:59 | disposition home or self-care (01) ==
LOC: EC 02:49
DX: G89.29 Other chronic pain (principal); R19.7 Diarrhea, unspecified; R10.9 Unspecified abdominal pain; Z87.891 Personal history of nicotine dependence; Z91.011 Allergy to milk products; Z88.6 Allergy status to analgesic agent; Z88.8 Allergy status to other drugs, medicaments and biological substances
CPT/HCPCS: 36415; 80053; 85025; 86140; 99284

== ENCOUNTER 2025-02-06 16:53 | Emergency (ER) | payer MEDICARE ==
[2025-02-06 16:58] VITALS: TEMP 99.7
--- NOTE | 2025-02-06 17:08 | ED ---
Abdominal Pain HPI - General Chief Complaint: Abdominal Pain Stated Complaint: IBS, face irritation Time Seen by Provider: 02/06/25 17:03 Source: patient, RN notes reviewed Mode of arrival: ambulatory Limitations: no limitations - History of Present Illness Initial Comments: This is a well-known 34-year-old male with history including IBS, Crohn's disease and GERD presenting for abdominal pain (06/15) x 7 days. Patient states he is having diffuse abdominal pain attributed to an IBS flare. Patient was seen yesterday in this ER for similar symptoms. Patient states stress due to pain has caused a "rash" on his face. Denies fever, chills, chest pain, dyspnea, N/V/D, hematochezia, melena. Patient states he would not like a CT scan at this time. MD Complaint: abdominal pain Onset/Timin -: days(s) Location: diffuse Radiation: none Migration to: no migration Severity scale (1-10): 10 - Related Data Home Medications Medication Instructions Recorded Confirmed ALPRAZolam [Xanax] 1 mg PO TID 01/17/25 01/17/25 Docusate [Colace] 100 mg PO BID PRN 01/17/25 01/17/25 lamoTRIgine [LaMICtal] 100 mg PO HS 01/17/25 01/17/25 Previous Rx's Medication Instructions Recorded Omeprazole [PriLOSEC] 20 mg PO AC-BRKFST 30 Days #30 cap 07/21/24 ALPRAZolam [Xanax] 1 mg PO TID PRN tab 01/23/25 Atorvastatin [Lipitor] 20 mg PO HS 30 Days tab 01/23/25 Nicotine 14Mg/24Hr Patch [Habitrol] 1 patch TRANSDERM DAILY #14 patch 01/23/25 Ziprasidone [Geodon] 40 mg PO 1800 30 Days cap 01/23/25 fluvoxaMINE [Luvox] 75 mg PO BID 30 Days tab 01/23/25 Allergies Allergy/AdvReac Type Severity Reaction Status Date / Time aripiprazole [From Abilify] Allergy Unknown Agitation Verified 02/06/25 16:58 cariprazine [From Vraylar] Allergy Unknown Agitation Verified 02/06/25 16:58 citalopram [From Celexa] Allergy Unknown Agitation Verified 02/06/25 16:58 divalproex sodium Allergy Unknown Agitation Verified 02/06/25 16:58 [From Depakote] paroxetine [From Paxil] Allergy Unknown Agitation Verified 02/06/25 16:58 sertraline [From Zoloft] Allergy Unknown Agitation Verified 02/06/25 16:58 metoclopramide [From Reglan] Allergy Rash/Hives Verified 02/06/25 16:58 prochlorperazine Allergy Anaphylaxis Verified 02/06/25 16:58 [From Compazine] phenobarbital AdvReac Severe Rapid Verified 02/06/25 16:58 Heart Rate zolpidem tartrate AdvReac Unknown Altered Verified 02/06/25 16:58 [From Ambien] Mental Status atropine [From Lomotil] AdvReac Rapid Verified 02/06/25 16:58 Heart Rate dicyclomine [From Bentyl] AdvReac Rapid Verified 02/06/25 16:58 Heart Rate diphenhydramine AdvReac Hallucinati Verified 02/06/25 16:58 [From Benadryl] ons diphenoxylate [From Lomotil] AdvReac Rapid Verified 02/06/25 16:58 Heart Rate estropipate [From Ogen 2.5] AdvReac Twitching Verified 02/06/25 16:58 of Legs haloperidol [From Haldol] AdvReac Agitation Verified 02/06/25 16:58 ketorolac [From Toradol] AdvReac Unknown Verified 02/06/25 16:58 lorazepam [From Ativan] AdvReac Hallucinati Verified 02/06/25 16:58 ons methylprednisolone AdvReac Altered Verified 02/06/25 16:58 [From Solu-Medrol] Mental Status Milk Containing Products AdvReac Diarrhea Verified 02/06/25 16:58 (Dairy) ondansetron [From Zofran] AdvReac Unknown Verified 02/06/25 16:58 Review of Systems ROS Statement: Those systems with pertinent positive or pertinent negative responses have been documented in the HPI. ROS Other: All systems not noted in ROS Statement are negative. 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 PT IS ABLE TO MAKE DECISIONS FOR HIMSELF,IBS History of Any Multi-Drug Resistant Organisms: None Reported Past Surgical History: Tonsillectomy Additional Past Surgical History / Comment(s): wisdom teeth removed. Past Anesthesia/Blood Transfusion Reactions: No Reported Reaction Additional Past Anesthesia/Blood Transfusion Reaction / Comment(s): NEVER HAD BLOOD TRANSFUSION Past Psychological History: ADD/ADHD, Anxiety, Bipolar, Depression, PTSD Smoking Status: Former smoker Past Alcohol Use History: None Reported Past Drug Use History: None Reported - Past Family History Sister(s) Additional Family Medical History / Comment(s): He has one sister that is healthy. He also has a 4-year-old daughter that is healthy. Father Family Medical History: GERD/Reflux Additional Family Medical History / Comment(s): DAD HAS ALSO NEVER BEEN AN ALCOHOLIC-RARELY, RARELY DRINKS. Mother Family Medical History: Cancer Additional Family Medical History / Comment(s): MOM STATES SHE HAS NEVER BEEN AN ALCOHOLIC-MOM RARELY ,RARELY DRINKS. HX THYROID CANCER General Exam Limitations: no limitations General appearance: alert, anxious, in distress (Patient is tearful, attributed to pain) Head exam: Present: atraumatic, normocephalic, normal inspection Eye exam: Present: normal appearance, PERRL, EOMI. Absent: scleral icterus, conjunctival injection, periorbital swelling ENT exam: Present: normal exam, mucous membranes moist Neck exam: Present: normal inspection. Absent: tenderness, meningismus, lymphadenopathy Respiratory exam: Present: normal lung sounds bilaterally. Absent: respiratory distress, wheezes, rales, rhonchi, stridor, accessory muscle use Cardiovascular Exam: Present: regular rate, normal rhythm, normal heart sounds. Absent: systolic murmur, diastolic murmur, rubs, gallop, clicks GI/Abdominal exam: Present: soft, tenderness (Diffuse abdominal tenderness with voluntary guarding), guarding, normal bowel sounds. Absent: distended, rebound, rigid, mass, pulsatile mass, hernia Extremities exam: Present: normal inspection, full ROM, normal capillary refill. Absent: tenderness, pedal edema, joint swelling, calf tenderness Back exam: Present: normal inspection Neurological exam: Present: alert, oriented X3, CN II-XII intact Psychiatric exam: Present: normal affect, normal mood Skin exam: Present: warm, dry, intact, normal color. Absent: rash Course Vital Signs 02/06/25 02/06/25 16:54 18:56 Temperature 99.7 F H Pulse Rate 110 H 68 Respiratory 22 18 Rate Blood Pressure 122/84 100/64 O2 Sat by Pulse 95 97 Oximetry Medical Decision Making - Medical Decision Making Was pt. sent in by a medical professional or institution (, LINO, UNION ORGANIZER, urgent care, hospital, or jail...) When possible be specific @ -No Did you speak to anyone other than the patient for history (EMS, parent, family, police, friend...)? What history was obtained from this source @ -No Did you review nursing and triage notes (agree or disagree)? Why? @ -I reviewed and agree with nursing and triage notes Were old charts reviewed (outside hosp., previous admission, EMS record, old EKG, old radiological studies, urgent care reports/EKG's, jail records)? Report findings @ -Chart from prior ER visit on 02/05/2025 reviewed. Differential Diagnosis (chest pain, altered mental status, abdominal pain women, abdominal pain men, vaginal bleeding, weakness, fever, dyspnea, syncope, headache, dizziness, GI bleed, back pain, seizure, CVA, palpatations, mental health, musculoskeletal)? @ -Differential Abdominal Pain Men: Appendicitis, cholecystitis, diverticulosis, ischemic bowel, pancreatitis, hepatitis, UTI, gastroenteritis, AAA, incarcerated hernia, bowel obstruction, constipation, inflammatory bowel, hepatitis, peptic ulcer disease, splenic infarction, perforated viscus, testicular torsion, this is not meant to be an all-inclusive list EKG interpreted by me (3pts min.). @ -Not done X-rays interpreted by me (1pt min.). @ -None done CT interpreted by me (1pt min.). @ -None done U/S interpreted by me (1pt. min.). @ -None done What testing was considered but not performed or refused? (CT, X-rays, U/S, labs)? Why? @ -Patient declined AP CT scan. What meds were considered but not given or refused? Why? @ -None Did you discuss the management of the patient with other professionals (professionals i.e. , LINO, UNION ORGANIZER, lab, RT, psych nurse, adoption social worker, spinneret person, teacher, senior administrative services officer, rn case management)? Give summary @ -No Was smoking cessation discussed for >3mins.? @ -No Was critical care preformed (if so, how long)? @ -No Were there social determinants of health that impacted care today? How? (Homelessness, low income, unemployed, alcoholism, drug addiction, transportation, low edu. Level, literacy, decrease access to med. care, usp, rehab)? @ -No Was there de-escalation of care discussed even if they declined (Discuss DNR or withdrawal of care, Hospice)? DNR status @ -No What co-morbidities impacted this encounter? (DM, HTN, Smoking, COPD, CAD, Canc er, CVA, ARF, Chemo, Hep., AIDS, mental health diagnosis, sleep apnea, morbid obesity)? @ -IBS Was patient admitted / discharged? Hospital course, mention meds given and route, prescriptions, significant lab abnormalities, going to OR and other pertinent info. @ -Lab work shows mild leukocytosis 11.09 and hyperglycemia 147 with normal LFT, kidney function and lipase. UA also unremarkable. Patient provided IV normal saline, Dilaudid and p.o. Tylenol. Following return of lab work, patient provided additional IV Dilaudid prior to discharge. Advise follow-up with PCP/gastroenterology for any ongoing or worsening pain/symptoms. Follow-up with pain clinic for management of chronic pain. Discussed patient with Dr. Ordonez. Undiagnosed new problem with uncertain prognosis? @ -No Drug Therapy requiring intensive monitoring for toxicity (Heparin, Nitro, Insulin, Cardizem)? @ -No Were any procedures done? @ -No Diagnosis/symptom? @ -Abdominal pain Acute, or Chronic, or Acute on Chronic? @ -Acute Uncomplicated (without systemic symptoms) or Complicated (systemic symptoms)? @ -Uncomplicated Side effects of treatment? @ -No Exacerbation, Progression, or Severe Exacerbation? @ -Severe exacerbation Poses a threat to life or bodily function? How? (Chest pain, [place], [place], pneumonia, PE, COPD, DKA, ARF, appy, cholecystitis, CVA, Diverticulitis, Homicidal, Suicidal, threat to staff... and all critical care pts) @ -No - Lab Data Result diagrams: 02/06/25 17:29 02/06/25 17:29 Lab Results 02/06/25 02/06/25 02/06/25 Range/Units 17:29 17:29 18:51 WBC 11.09 H (4.50-10.00) 10*3/uL RBC 4.66 (4.40-5.60) 10*6/uL Hgb 14.7 (13.0-17.0) g/dL Hct 42.5 (39.6-50.0) % MCV 91.2 (80.0-97.0) fL MCH 31.5 (27.0-32.0) pg MCHC 34.6 (32.0-37.0) g/dL Plt Count 234 (140-440) 10*3/uL MPV 9.9 (9.5-12.2) fL Immature Gran % (Auto) 0.4 % Neutrophils % 79.1 % Lymphocytes % 16.5 % Monocytes % 3.2 % Eosinophils % 0.5 % Basophils % 0.3 % Immature Gran # 0.04 (0.00-0.04) 10*3/uL Neutrophils # 8.78 H (1.80-7.70) 10*3/uL Lymphocytes # 1.83 (0.90-5.00) 10*3/uL Monocytes # 0.36 (0.20-1.00) 10*3/uL Eosinophils # 0.05 (0.04-0.35) 10*3/uL Basophils # 0.03 (0.00-0.10) 10*3/uL Sodium 135 L (137-145) mmol/L Potassium 4.0 (3.5-5.1) mmol/L Chloride 97 L (98-107) mmol/L Carbon Dioxide 27 (22-30) mmol/L Anion Gap 11 mmol/L BUN 19 (9-20) mg/dL Creatinine 0.91 (0.66-1.25) mg/dL Est GFR (CKD-EPI)AfAm >90 (>60 ml/min/1.73 sqM) Est GFR (CKD-EPI)NonAf >90 (>60 ml/min/1.73 sqM) Glucose 147 H (74-99) mg/dL Calcium 10.3 H (8.4-10.2) mg/dL Total Bilirubin 1.2 (0.2-1.3) mg/dL AST 30 (17-59) U/L ALT 39 (4-49) U/L Alkaline Phosphatase 66 (38-126) U/L Total Protein 7.4 (6.3-8.2) g/dL Albumin 5.0 (3.5-5.0) g/dL Lipase 45 (23-300) U/L Urine Color Yellow Urine Appearance Cloudy (Clear) Urine pH 7.0 (5.0-8.0) Ur Specific [place] 1.023 (1.001-1.035) Urine Protein Negative (Negative) Urine Glucose (UA) Negative (Negative) Urine Ketones Negative (Negative) Urine Blood Negative (Negative) Urine Nitrite Negative (Negative) Urine Bilirubin Negative (Negative) Urine Urobilinogen 2.0 (<2.0) mg/dL Ur Leukocyte Esterase Negative (Negative) Urine RBC 2 (0-5) /hpf Urine WBC 1 (0-5) /hpf Urine Mucus Few H (None) /hpf Urine Yeast (Budding) Many H (None) /hpf Disposition Clinical Impression: Abdominal pain Disposition: HOME SELF-CARE Condition: Fair Instructions (If sedation given, give patient instructions): Abdominal Pain ( ED) Additional Instructions: Follow-up with PCP/gastroenterology for any ongoing worsening symptoms/pain. Is patient prescribed a controlled substance at d/c from ED?: No Referrals: Sumeet Mejias III, MD [Primary Care Provider] - 1-2 days Melissa Mendoza MD [STAFF PHYSICIAN] - 1-2 days Time of Disposition: 18:58
[2025-02-06 17:34] LABS: Basophils # (A) 0.03 10*3/uL (0.00-0.10); Basophils % (A) 0.3 %; Eosinophils # (A) 0.05 10*3/uL (0.04-0.35); Eosinophils % (A) 0.5 %; HCT 42.5 % (39.6-50.0); HGB 14.7 g/dL (13.0-17.0); Lymphocytes # (A) 1.83 10*3/uL (0.90-5.00); Lymphocytes % (A) 16.5 %; MCH 31.5 pg (27.0-32.0); MCHC 34.6 g/dL (32.0-37.0); MCV 91.2 fL (80.0-97.0); Mean Platelet Volume 9.9 fL (9.5-12.2); Monocytes # (A) 0.36 10*3/uL (0.20-1.00); Monocytes % (A) 3.2 %; Neutrophils # (A) 8.78 10*3/uL (1.80-7.70); Neutrophils % (A) 79.1 %; Platelet Count 234 10*3/uL (140-440); RBC 4.66 10*6/uL (4.40-5.60); RDW 15.3 % (11.5-14.5); WBC 11.09 10*3/uL (4.50-10.00)
[2025-02-06] MEDS: ACETAMINOPHEN TAB 500 MG TAB PO STA (17:42)
[2025-02-06] MEDS: SODIUM CHLORIDE 0.9% 1,000 ML IV STA (17:42)
[2025-02-06] MEDS: HYDROmorphone 1 MG/ML 1 ML SYRINGE IVP STA ×2 (17:43→18:59)
[2025-02-06 17:44] LABS: ALT 39 U/L (4-49); African American GFR (CKD) >90 (>60 ml/min/1.73 sqM); Anion Gap 11 mmol/L; Blood Urea Nitrogen 19 mg/dL (9-20); Calcium 10.3 mg/dL (8.4-10.2); Carbon Dioxide 27 mmol/L (22-30); Chloride 97 mmol/L (98-107); Glucose 147 mg/dL (74-99); Lipase 45 U/L (23-300); Non-African American GFR(CKD) >90 (>60 ml/min/1.73 sqM); Sodium 135 mmol/L (137-145); Total Bilirubin 1.2 mg/dL (0.2-1.3); Total Protein 7.4 g/dL (6.3-8.2)
[2025-02-06 17:55] LABS: AST 30 U/L (17-59); Alkaline Phosphatase 66 U/L (38-126)
[2025-02-06 18:59] VITALS: BP 100/64; PULSE 68; RESP 18
[2025-02-06 19:13] LABS: Appearance,Urine Cloudy (Clear); Bilirubin,Urine Negative (Negative); Blood,Urine Negative (Negative); Budding Yeast,Urine Many /hpf; Color,Urine Yellow; Glucose,Urine (UA) Negative (Negative); Ketones,Urine Negative (Negative); Leukocyte Esterase,Urine Negative (Negative); Mucus,Urine Few /hpf; Nitrite,Urine Negative (Negative); Protein,Urine Negative (Negative); RBC,Urine 2 /hpf (0-5); Specific Gravity,Urine 1.023 (1.001-1.035); WBC,Urine 1 /hpf (0-5)
== END 2025-02-06 19:22 | disposition home or self-care (01) ==
LOC: EC 16:53
DX: R10.84 Generalized abdominal pain (principal); D72.829 Elevated white blood cell count, unspecified; R73.9 Hyperglycemia, unspecified; K58.9 Irritable bowel syndrome, unspecified; Z88.8 Allergy status to other drugs, medicaments and biological substances; Z88.6 Allergy status to analgesic agent; Z91.011 Allergy to milk products; Z87.891 Personal history of nicotine dependence
CPT/HCPCS: 36415; 80053; 83690; 85025; 81001; 99284; 96374; 96376; 96361; J1171

== ENCOUNTER 2025-02-07 13:18 | Emergency (ER) | payer MEDICARE ==
[2025-02-07 13:24] VITALS: RESP 18; TEMP 99.1
--- NOTE | 2025-02-07 13:26 | ED ---
General Adult HPI - General Chief complaint: Abdominal Pain Stated complaint: Abd Pain Time Seen by Provider: 02/07/25 13:20 Source: patient, EMS, RN notes reviewed, old records reviewed Mode of arrival: EMS Limitations: no limitations - History of Present Illness Initial comments: This is a 34-year-old male who presents to the emergency department for his IBS. Patient states she has had some abdominal cramping he was given pain medicine yesterday wants pain medicine today. Patient denies any nausea vomiting diarrhea. Patient has any chest pain patient denies any fever or chills. - Related Data Home Medications Medication Instructions Recorded Confirmed ALPRAZolam [Xanax] 1 mg PO TID 01/17/25 01/17/25 Docusate [Colace] 100 mg PO BID PRN 01/17/25 01/17/25 lamoTRIgine [LaMICtal] 100 mg PO HS 01/17/25 01/17/25 Previous Rx's Medication Instructions Recorded Omeprazole [PriLOSEC] 20 mg PO AC-BRKFST 30 Days #30 cap 07/21/24 ALPRAZolam [Xanax] 1 mg PO TID PRN tab 01/23/25 Atorvastatin [Lipitor] 20 mg PO HS 30 Days tab 01/23/25 Nicotine 14Mg/24Hr Patch [Habitrol] 1 patch TRANSDERM DAILY #14 patch 01/23/25 Ziprasidone [Geodon] 40 mg PO 1800 30 Days cap 01/23/25 fluvoxaMINE [Luvox] 75 mg PO BID 30 Days tab 01/23/25 Allergies Allergy/AdvReac Type Severity Reaction Status Date / Time aripiprazole [From Abilify] Allergy Unknown Agitation Verified 02/06/25 16:58 cariprazine [From Vraylar] Allergy Unknown Agitation Verified 02/06/25 16:58 citalopram [From Celexa] Allergy Unknown Agitation Verified 02/06/25 16:58 divalproex sodium Allergy Unknown Agitation Verified 02/06/25 16:58 [From Depakote] paroxetine [From Paxil] Allergy Unknown Agitation Verified 02/06/25 16:58 sertraline [From Zoloft] Allergy Unknown Agitation Verified 02/06/25 16:58 metoclopramide [From Reglan] Allergy Rash/Hives Verified 02/06/25 16:58 prochlorperazine Allergy Anaphylaxis Verified 02/06/25 16:58 [From Compazine] phenobarbital AdvReac Severe Rapid Verified 02/06/25 16:58 Heart Rate zolpidem tartrate AdvReac Unknown Altered Verified 02/06/25 16:58 [From Ambien] Mental Status atropine [From Lomotil] AdvReac Rapid Verified 02/06/25 16:58 Heart Rate dicyclomine [From Bentyl] AdvReac Rapid Verified 02/06/25 16:58 Heart Rate diphenhydramine AdvReac Hallucinati Verified 02/06/25 16:58 [From Benadryl] ons diphenoxylate [From Lomotil] AdvReac Rapid Verified 02/06/25 16:58 Heart Rate estropipate [From Ogen 2.5] AdvReac Twitching Verified 02/06/25 16:58 of Legs haloperidol [From Haldol] AdvReac Agitation Verified 02/06/25 16:58 ketorolac [From Toradol] AdvReac Unknown Verified 02/06/25 16:58 lorazepam [From Ativan] AdvReac Hallucinati Verified 02/06/25 16:58 ons methylprednisolone AdvReac Altered Verified 02/06/25 16:58 [From Solu-Medrol] Mental Status Milk Containing Products AdvReac Diarrhea Verified 02/06/25 16:58 (Dairy) ondansetron [From Zofran] AdvReac Unknown Verified 02/06/25 16:58 Review of Systems ROS Statement: Those systems with pertinent positive or pertinent negative responses have been documented in the HPI. ROS Other: All systems not noted in ROS Statement are negative. 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 PT IS ABLE TO MAKE DECISIONS FOR HIMSELF,IBS History of Any Multi-Drug Resistant Organisms: None Reported Past Surgical History: Tonsillectomy Additional Past Surgical History / Comment(s): wisdom teeth removed. Past Anesthesia/Blood Transfusion Reactions: No Reported Reaction Additional Past Anesthesia/Blood Transfusion Reaction / Comment(s): NEVER HAD BLOOD TRANSFUSION Past Psychological History: ADD/ADHD, Anxiety, Bipolar, Depression, PTSD Smoking Status: Former smoker Past Alcohol Use History: None Reported Past Drug Use History: None Reported - Past Family History Sister(s) Additional Family Medical History / Comment(s): He has one sister that is healthy. He also has a 4-year-old daughter that is healthy. Father Family Medical History: GERD/Reflux Additional Family Medical History / Comment(s): DAD HAS ALSO NEVER BEEN AN ALCOHOLIC-RARELY, RARELY DRINKS. Mother Family Medical History: Cancer Additional Family Medical History / Comment(s): MOM STATES SHE HAS NEVER BEEN AN ALCOHOLIC-MOM RARELY ,RARELY DRINKS. HX THYROID CANCER General Exam - General Exam Comments Initial Comments: GENERAL: Patient is well-developed and well-nourished. Patient is nontoxic and well-hydr ated and is in no acute distress. ENT: Neck is soft and supple. No significant lymphadenopathy is noted. Oropharynx is clear. Moist mucous membranes. Neck has full range of motion without eliciting any pain. EYES: The sclera were anicteric and conjunctiva were pink and moist. Extraocular movements were intact and pupils were equal round and reactive to light. Eyelids were unremarkable. PULMONARY: Unlabored respirations. Good breath sounds bilaterally. No audible rales rhonchi or wheezing was noted. CARDIOVASCULAR: There is a regular rate and rhythm without any murmurs gallops or rubs. ABDOMEN: Soft and nontender with normal bowel sounds. No area of tenderness could be palpated SKIN: Skin is clear with no lesions or rashes and otherwise unremarkable. NEUROLOGIC: Patient is alert and oriented x3. Cranial nerves II through XII are grossly intact. Motor and sensory are also intact. Normal speech, volume and content. Symmetrical smile. MUSCULOSKELETAL: Normal extremities with adequate strength and full range of motion. No lower extremity swelling or edema. No calf tenderness. LYMPHATICS: No significant lymphadenopathy is noted PSYCHIATRIC: Normal psychiatric evaluation. Limitations: no limitations Course Vital Signs 02/07/25 13:20 Temperature 99.1 F Pulse Rate 107 H Respiratory 18 Rate Blood Pressure 118/64 O2 Sat by Pulse 99 Oximetry Medical Decision Making - Medical Decision Making Was pt. sent in by a medical professional or institution (, PA, TECHNICAL PUBLICATIONS MANAGER, urgent care, hospital, or longterm...) When possible be specific @ -No Did you speak to anyone other than the patient for history (EMS, parent, family, police, friend...)? What history was obtained from this source @ -No Did you review nursing and triage notes (agree or disagree)? Why? @ -I reviewed and agree with nursing and triage notes Were old charts reviewed (outside hosp., previous admission, EMS record, old EKG, old radiological studies, urgent care reports/EKG's, longterm records)? Report findings @ -No old charts were reviewed Differential Diagnosis? @ -Differential Abdominal Pain Men: Appendicitis, cholecystitis, diverticulosis, ischemic bowel, pancreatitis, hepatitis, UTI, gastroenteritis, AAA, incarcerated hernia, bowel obstruction, constipation, inflammatory bowel, hepatitis, peptic ulcer disease, splenic infarction, perforated viscus, testicular torsion, this is not meant to be an all-inclusive list EKG interpreted by me (3pts min.). @ -As above X-rays interpreted by me (1pt min.). @ -None done CT interpreted by me (1pt min.). @ -None done U/S interpreted by me (1pt. min.). @ -None done What testing was considered but not performed or refused? (CT, X-rays, U/S, labs)? Why? @ -None What meds were considered but not given or refused? Why? @ -None Did you discuss the management of the patient with other professionals (professionals i.e. , PA, TECHNICAL PUBLICATIONS MANAGER, lab, RT, psych nurse, social worker aide, telephonic rn, teacher, morale officer, ed case manager)? Give summary @ -No Was smoking cessation discussed for >3mins.? @ -No Was critical care preformed (if so, how long)? @ -No Were there social determinants of health that impacted care today? How? (Homelessness, low income, unemployed, alcoholism, drug addiction, transpo rtation, low edu. Level, literacy, decrease access to med. care, retirement, rehab)? @ -No Was there de-escalation of care discussed even if they declined (Discuss DNR or withdrawal of care, Hospice)? DNR status @ -No What co-morbidities impacted this encounter? (DM, HTN, Smoking, COPD, CAD, Cancer, CVA, ARF, Chemo, Hep., AIDS, mental health diagnosis, sleep apnea, morbid obesity)? @ -None Was patient admitted / discharged? Hospital course, mention meds given and route, prescriptions, significant lab abnormalities, going to OR and other pertinent info. @ -On examination patient had absolutely no abdominal pain to palpation patient had no fever. Patient had no nausea no vomiting no diarrhea. Patient was given Bentyl and discharged home. Undiagnosed new problem with uncertain prognosis? @ -No Drug Therapy requiring intensive monitoring for toxicity (Heparin, Nitro, Insulin, Cardizem)? @ -No Were any procedures done? @ -No Diagnosis/symptom? @ -Abdominal cramping Acute, or Chronic, or Acute on Chronic? @ -Acute Uncomplicated (without systemic symptoms) or Complicated (systemic symptoms)? @ -Uncomplicated Side effects of treatment? @ -No Exacerbation, Progression, or Severe Exacerbation? @ -No Poses a threat to life or bodily function? How? (Chest pain, [place], [place], pneumonia, PE, COPD, DKA, ARF, appy, cholecystitis, CVA, Diverticulitis, Homicidal, Suicidal, threat to staff... and all critical care pts) @ -No Disposition Clinical Impression: Abdominal cramping Disposition: HOME SELF-CARE Instructions (If sedation given, give patient instructions): Irritable Bowel Syndrome (ED) Is patient prescribed a controlled substance at d/c from ED?: No Referrals: Sumeet Mejias III, MD [Primary Care Provider] - 1-2 days Time of Disposition: 13:48
[2025-02-07] MEDS: DICYCLOMINE 10 MG/ML 2 ML AMP IM STA (13:27)
[2025-02-07 14:03] VITALS: BP 97/57; PULSE 98
== END 2025-02-07 14:03 | disposition home or self-care (01) ==
LOC: EC 13:18
DX: R10.9 Unspecified abdominal pain (principal); Z87.891 Personal history of nicotine dependence; Z88.6 Allergy status to analgesic agent; Z91.011 Allergy to milk products; Z88.8 Allergy status to other drugs, medicaments and biological substances
CPT/HCPCS: 99284; 96372; J0500

== ENCOUNTER 2025-02-16 16:59 | Emergency (ER) | payer MEDICARE ==
--- NOTE | 2025-02-16 17:50 | ED ---
General Adult HPI - General Stated complaint: IBS reaction, irritated skin Time Seen by Provider: 02/16/25 17:15 Source: patient, RN notes reviewed Mode of arrival: ambulatory Limitations: no limitations - History of Present Illness Initial comments: This is a well-known 34-year-old male with history including GERD, Crohn's, GI bleed presenting with mother for abdominal pain (06/15) x 2 days. Patient attributes belly pain to IBS. Patient endorses rash on face is due to associated pain. Patient states he is planning to make an appointment with Dr. Caba on Wednesday for further evaluation and management. Onset/Timin -: days(s) - Related Data Home Medications Medication Instructions Recorded Confirmed ALPRAZolam [Xanax] 1 mg PO TID 01/17/25 01/17/25 Docusate [Colace] 100 mg PO BID PRN 01/17/25 01/17/25 lamoTRIgine [LaMICtal] 100 mg PO HS 01/17/25 01/17/25 Previous Rx's Medication Instructions Recorded Omeprazole [PriLOSEC] 20 mg PO AC-BRKFST 30 Days #30 cap 07/21/24 ALPRAZolam [Xanax] 1 mg PO TID PRN tab 01/23/25 Atorvastatin [Lipitor] 20 mg PO HS 30 Days tab 01/23/25 Nicotine 14Mg/24Hr Patch [Habitrol] 1 patch TRANSDERM DAILY #14 patch 01/23/25 Ziprasidone [Geodon] 40 mg PO 1800 30 Days cap 01/23/25 fluvoxaMINE [Luvox] 75 mg PO BID 30 Days tab 01/23/25 metroNIDAZOLE 1% GEL [Metrogel 1%] 1 applic TOPICAL DAILY #60 gram 02/16/25 Allergies Allergy/AdvReac Type Severity Reaction Status Date / Time aripiprazole [From Abilify] Allergy Unknown Agitation Verified 02/16/25 17:49 cariprazine [From Vraylar] Allergy Unknown Agitation Verified 02/16/25 17:49 citalopram [From Celexa] Allergy Unknown Agitation Verified 02/16/25 17:49 divalproex sodium Allergy Unknown Agitation Verified 02/16/25 17:49 [From Depakote] paroxetine [From Paxil] Allergy Unknown Agitation Verified 02/16/25 17:49 sertraline [From Zoloft] Allergy Unknown Agitation Verified 02/16/25 17:49 metoclopramide [From Reglan] Allergy Rash/Hives Verified 02/16/25 17:49 prochlorperazine Allergy Anaphylaxis Verified 02/16/25 17:49 [From Compazine] phenobarbital AdvReac Severe Rapid Verified 02/16/25 17:49 Heart Rate zolpidem tartrate AdvReac Unknown Altered Verified 02/16/25 17:49 [From Ambien] Mental Status atropine [From Lomotil] AdvReac Rapid Verified 02/16/25 17:49 Heart Rate dicyclomine [From Bentyl] AdvReac Rapid Verified 02/16/25 17:49 Heart Rate diphenhydramine AdvReac Hallucinati Verified 02/16/25 17:49 [From Benadryl] ons diphenoxylate [From Lomotil] AdvReac Rapid Verified 02/16/25 17:49 Heart Rate estropipate [From Ogen 2.5] AdvReac Twitching Verified 02/16/25 17:49 of Legs haloperidol [From Haldol] AdvReac Agitation Verified 02/16/25 17:49 ketorolac [From Toradol] AdvReac Unknown Verified 02/16/25 17:49 lorazepam [From Ativan] AdvReac Hallucinati Verified 02/16/25 17:49 ons methylprednisolone AdvReac Altered Verified 02/16/25 17:49 [From Solu-Medrol] Mental Status Milk Containing Products AdvReac Diarrhea Verified 02/16/25 17:49 (Dairy) ondansetron [From Zofran] AdvReac Unknown Verified 02/16/25 17:49 Review of Systems ROS Statement: Those systems with pertinent positive or pertinent negative responses have been documented in the HPI. ROS Other: All systems not noted in ROS Statement are negative. 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 PT IS ABLE TO MAKE DECISIONS FOR HIMSELF,IBS History of Any Multi-Drug Resistant Organisms: None Reported Past Surgical History: Tonsillectomy Additional Past Surgical History / Comment(s): wisdom teeth removed. Past Anesthesia/Blood Transfusion Reactions: No Reported Reaction Additional Past Anesthesia/Blood Transfusion Reaction / Comment(s): NEVER HAD BLOOD TRANSFUSION Past Psychological History: ADD/ADHD, Anxiety, Bipolar, Depression, PTSD Smoking Status: Former smoker Past Alcohol Use History: None Reported Past Drug Use History: None Reported - Past Family History Sister(s) Additional Family Medical History / Comment(s): He has one sister that is healthy. He also has a 4-year-old daughter that is healthy. Father Family Medical History: GERD/Reflux Additional Family Medical History / Comment(s): DAD HAS ALSO NEVER BEEN AN ALCOHOLIC-RARELY, RARELY DRINKS. Mother Family Medical History: Cancer Additional Family Medical History / Comment(s): MOM STATES SHE HAS NEVER BEEN AN ALCOHOLIC-MOM RARELY ,RARELY DRINKS. HX THYROID CANCER General Exam - General Exam Comments Initial Comments: Visual Physical Exam Vital signs reviewed General: Patient appears distressed and tearful. Head: Normocephalic, atraumatic Eyes: PERRLA, EOMI ENT: Airway patent Chest: Nonlabored breathing Skin: No visual rash, normal skin tone Neuro: Alert and oriented 3 Musculoskeletal: No gross abnormalities Limitations: no limitations General appearance: alert, in no apparent distress Head exam: Present: atraumatic, normocephalic, normal inspection Eye exam: Present: normal appearance, PERRL, EOMI. Absent: scleral icterus, conjunctival injection, periorbital swelling ENT exam: Present: normal exam, mucous membranes moist Neck exam: Present: normal inspection. Absent: tenderness, meningismus, lymphadenopathy Respiratory exam: Present: normal lung sounds bilaterally. Absent: respiratory distress, wheezes, rales, rhonchi, stridor Cardiovascular Exam: Present: regular rate, normal rhythm, normal heart sounds. Absent: systolic murmur, diastolic murmur, rubs, gallop, clicks GI/Abdominal exam: Present: soft, tenderness (Positive diffuse abdominal tenderness with voluntary guarding), guarding, normal bowel sounds. Absent: distended, rebound, rigid Extremities exam: Present: normal inspection, full ROM, normal capillary refill. Absent: tenderness, pedal edema, joint swelling, calf tenderness Back exam: Present: normal inspection Neurological exam: Present: alert, oriented X3, CN II-XII intact Psychiatric exam: Present: normal affect, normal mood Skin exam: Present: warm, dry, intact, normal color. Absent: rash Course Vital Signs 02/16/25 02/16/25 17:46 19:06 Temperature 97.9 F 98.1 F Pulse Rate 65 51 L Respiratory 20 19 Rate Blood Pressure 128/71 103/72 O2 Sat by Pulse 99 96 Oximetry Medical Decision Making - Medical Decision Making Was pt. sent in by a medical professional or institution (, PA, NEUROSURGICAL PHYSICIAN ASSISTANT, urgent care, hospital, or fpc...) When possible be specific @ -No Did you speak to anyone other than the patient for history (EMS, parent, family, police, friend...)? What history was obtained from this source @ -No Did you review nursing and triage notes (agree or disagree)? Why? @ -I reviewed and agree with nursing and triage notes Were old charts reviewed (outside hosp., previous admission, EMS record, old EKG, old radiological studies, urgent care reports/EKG's, fpc records)? Report findings @ -No old charts were reviewed Differential Diagnosis (chest pain, altered mental status, abdominal pain women, abdominal pain men, vaginal bleeding, weakness, fever, dyspnea, syncope, headache, dizziness, GI bleed, back pain, seizure, CVA, palpatations, mental health, musculoskeletal)? @ -Differential Abdominal Pain Men: Appendicitis, cholecystitis, diverticulosis, ischemic bowel, pancreatitis, hepatitis, UTI, gastroenteritis, AAA, incarcerated hernia, bowel obstruction, constipation, inflammatory bowel, hepatitis, peptic ulcer disease, splenic infarction, perforated viscus, testicular torsion, this is not meant to be an all-inclusive list EKG interpreted by me (3pts min.). @ -Not done X-rays interpreted by me (1pt min.). @ -None done CT interpreted by me (1pt min.). @ -None done U/S interpreted by me (1pt. min.). @ -None done What testing was considered but not performed or refused? (CT, X-rays, U/S, labs)? Why? @ -None What meds were considered but not given or refused? Why? @ -None Did you discuss the management of the patient with other professionals (professionals i.e. , PA, NEUROSURGICAL PHYSICIAN ASSISTANT, lab, RT, psych nurse, social and political studies professor, experimental machinist, teacher, traffic maintenance officer, manager rn case)? Give summary @ -No Was smoking cessation discussed for >3mins.? @ -No Was critical care preformed (if so, how long)? @ -No Were there social determinants of health that impacted care today? How? (Homelessness, low income, unemployed, alcoholism, drug addiction, transportation, low edu. Level, literacy, decrease access to med. care, [facility], rehab)? @ -No Was there de-escalation of care discussed even if they declined (Discuss DNR or withdrawal of care, Hospice)? DNR status @ -No What co-morbidities impacted this encounter? (DM, HTN, Smoking, COPD, CAD, Cancer, CVA, ARF, Chemo, Hep., AIDS, mental health diagnosis, sleep apnea, morbid obesity)? @ -None Was patient admitted / discharged? Hospital course, mention meds given and route, prescriptions, significant lab abnormalities, going to OR and other pertinent info. @ -Patient provided p.o. Tylenol for pain. MetroGel sent to pharmacy for treatment for rosacea. Advised follow-up with PCP/gastroenterology for ongoing GI symptoms. Discussed patient with Dr. Leslie. Undiagnosed new problem with uncertain prognosis? @ -No Drug Therapy requiring intensive monitoring for toxicity (Heparin, Nitro, Insulin, Cardizem)? @ -No Were any procedures done? @ -No Diagnosis/symptom? @ -Abdominal pain, rosacea Acute, or Chronic, or Acute on Chronic? @ -Acute on chronic Uncomplicated (without systemic symptoms) or Complicated (systemic symptoms)? @ -Uncomplicated Side effects of treatment? @ -No Exacerbation, Progression, or Severe Exacerbation? @ -No Poses a threat to life or bodily function? How? (Chest pain, [place], [place], pneumonia, PE, COPD, DKA, ARF, appy, cholecystitis, CVA, Diverticulitis, Homicidal, Suicidal, threat to staff... and all critical care pts) @ -No Disposition Clinical Impression: Abdominal pain, Rosacea Disposition: HOME SELF-CARE Condition: Fair Instructions (If sedation given, give patient instructions): Abdominal Pain (ED), Seborrheic Dermatitis (DC) Additional Instructions: Follow-up with PCP/gastroenterology for ongoing management of GI pain. Tylenol 500 mg every 4-6 hours as needed for pain. Bananas, rice, applesauce, tea, toast. Prescriptions: metroNIDAZOLE 1% GEL [Metrogel 1%] 1 applic TOPICAL DAILY #60 gram Is patient prescribed a controlled substance at d/c from ED?: No Referrals: Sumeet Mejias III, MD [Primary Care Provider] - 1-2 days Bri Caba FNPBC [REFERRING] - 1-2 days Melissa Mendoza MD [STAFF PHYSICIAN] - 1-2 days Time of Disposition: 18:54
[2025-02-16 19:08] VITALS: BP 103/72; PULSE 51; RESP 19; TEMP 98.1
[2025-02-16] MEDS: ACETAMINOPHEN TAB 500 MG TAB PO STA (19:11)
== END 2025-02-16 19:19 | disposition home or self-care (01) ==
LOC: EC 16:59
DX: R10.84 Generalized abdominal pain (principal); L71.9 Rosacea, unspecified; Z88.8 Allergy status to other drugs, medicaments and biological substances; Z91.011 Allergy to milk products; Z88.6 Allergy status to analgesic agent; Z87.891 Personal history of nicotine dependence; Z90.89 Acquired absence of other organs
CPT/HCPCS: 99284

== ENCOUNTER 2025-02-25 13:01 | Emergency (ER) | payer MEDICARE ==
[2025-02-25 13:24] VITALS: BP 122/67; PULSE 120; RESP 18; TEMP 98.4
--- NOTE | 2025-02-25 13:32 | ED ---
General Adult HPI - General Chief complaint: Abdominal Pain Stated complaint: abd pain Time Seen by Provider: 02/25/25 13:15 Source: patient, RN notes reviewed Mode of arrival: ambulatory - History of Present Illness Initial comments: 34-year-old male presents emergency department complaint abdominal pain is a chronic issue no acute complaints otherwise today stating that his IBS is bothering him along with his anxiety. Patient denies any suicidal ideation denies any self-harm no other complaints. - Related Data Home Medications Medication Instructions Recorded Confirmed ALPRAZolam [Xanax] 1 mg PO TID 01/17/25 01/17/25 Docusate [Colace] 100 mg PO BID PRN 01/17/25 01/17/25 lamoTRIgine [LaMICtal] 100 mg PO HS 01/17/25 01/17/25 Previous Rx's Medication Instructions Recorded Omeprazole [PriLOSEC] 20 mg PO AC-BRKFST 30 Days #30 cap 07/21/24 ALPRAZolam [Xanax] 1 mg PO TID PRN tab 01/23/25 Atorvastatin [Lipitor] 20 mg PO HS 30 Days tab 01/23/25 Nicotine 14Mg/24Hr Patch [Habitrol] 1 patch TRANSDERM DAILY #14 patch 01/23/25 Ziprasidone [Geodon] 40 mg PO 1800 30 Days cap 01/23/25 fluvoxaMINE [Luvox] 75 mg PO BID 30 Days tab 01/23/25 metroNIDAZOLE 1% GEL [Metrogel 1%] 1 applic TOPICAL DAILY #60 gram 02/16/25 Allergies Allergy/AdvReac Type Severity Reaction Status Date / Time aripiprazole [From Abilify] Allergy Unknown Agitation Verified 02/25/25 13:24 cariprazine [From Vraylar] Allergy Unknown Agitation Verified 02/25/25 13:24 citalopram [From Celexa] Allergy Unknown Agitation Verified 02/25/25 13:24 divalproex sodium Allergy Unknown Agitation Verified 02/25/25 13:24 [From Depakote] paroxetine [From Paxil] Allergy Unknown Agitation Verified 02/25/25 13:24 sertraline [From Zoloft] Allergy Unknown Agitation Verified 02/25/25 13:24 metoclopramide [From Reglan] Allergy Rash/Hives Verified 02/25/25 13:24 prochlorperazine Allergy Anaphylaxis Verified 02/25/25 13:24 [From Compazine] phenobarbital AdvReac Severe Rapid Verified 02/25/25 13:24 Heart Rate zolpidem tartrate AdvReac Unknown Altered Verified 02/25/25 13:24 [From Ambien] Mental Status atropine [From Lomotil] AdvReac Rapid Verified 02/25/25 13:24 Heart Rate dicyclomine [From Bentyl] AdvReac Rapid Verified 02/25/25 13:24 Heart Rate diphenhydramine AdvReac Hallucinati Verified 02/25/25 13:24 [From Benadryl] ons diphenoxylate [From Lomotil] AdvReac Rapid Verified 02/25/25 13:24 Heart Rate estropipate [From Ogen 2.5] AdvReac Twitching Verified 02/25/25 13:24 of Legs haloperidol [From Haldol] AdvReac Agitation Verified 02/25/25 13:24 ketorolac [From Toradol] AdvReac Unknown Verified 02/25/25 13:24 lorazepam [From Ativan] AdvReac Hallucinati Verified 02/25/25 13:24 ons methylprednisolone AdvReac Altered Verified 02/25/25 13:24 [From Solu-Medrol] Mental Status Milk Containing Products AdvReac Diarrhea Verified 02/25/25 13:24 (Dairy) ondansetron [From Zofran] AdvReac Unknown Verified 02/25/25 13:24 Review of Systems ROS Statement: Those systems with pertinent positive or pertinent negative responses have been documented in the HPI. ROS Other: All systems not noted in ROS Statement are negative. 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 PT IS ABLE TO MAKE DECISIONS FOR HIMSELF,IBS History of Any Multi-Drug Resistant Organisms: None Reported Past Surgical History: Tonsillectomy Additional Past Surgical History / Comment(s): wisdom teeth removed. Past Anesthesia/Blood Transfusion Reactions: No Reported Reaction Additional Past Anesthesia/Blood Transfusion Reaction / Comment(s): NEVER HAD BLOOD TRANSFUSION Past Psychological History: ADD/ADHD, Anxiety, Bipolar, Depression, PTSD Smoking Status: Former smoker Past Alcohol Use History: None Reported Past Drug Use History: None Reported - Past Family History Sister(s) Additional Family Medical History / Comment(s): He has one sister that is healthy. He also has a 4-year-old daughter that is healthy. Father Family Medical History: GERD/Reflux Additional Family Medical History / Comment(s): DAD HAS ALSO NEVER BEEN AN ALCOHOLIC-RARELY, RARELY DRINKS. Mother Family Medical History: Cancer Additional Family Medical History / Comment(s): MOM STATES SHE HAS NEVER BEEN AN ALCOHOLIC-MOM RARELY ,RARELY DRINKS. HX THYROID CANCER General Exam Limitations: no limitations General appearance: alert, in no apparent distress Head exam: Present: atraumatic, normocephalic, normal inspection Eye exam: Present: normal appearance, PERRL, EOMI. Absent: scleral icterus, conjunctival injection, periorbital swelling ENT exam: Present: normal exam, normal oropharynx, mucous membranes moist Neck exam: Present: normal inspection. Absent: tenderness, meningismus, lymphadenopathy Respiratory exam: Present: normal lung sounds bilaterally. Absent: respiratory distress, wheezes, rales, rhonchi, stridor Cardiovascular Exam: Present: regular rate, normal rhythm, normal heart sounds. Absent: systolic murmur, diastolic murmur, rubs, gallop, clicks GI/Abdominal exam: Present: soft, normal bowel sounds. Absent: distended, tenderness, guarding, rebound, rigid Course Vital Signs 02/25/25 13:21 Temperature 98.4 F Pulse Rate 120 H Respiratory 18 Rate Blood Pressure 122/67 O2 Sat by Pulse 95 Oximetry Medical Decision Making - Medical Decision Making Was pt. sent in by a medical professional or institution (, PA, MECHANICAL SYSTEMS DESIGN ENGINEER, urgent care, hospital, or [facility]...) When possible be specific @ -No Did you speak to anyone other than the patient for history (EMS, parent, family, police, friend...)? What history was obtained from this source @ -No Did you review nursing and triage notes (agree or disagree)? Why? @ -I reviewed and agree with nursing and triage notes Were old charts reviewed (outside hosp., previous admission, EMS record, old EKG, old radiological studies, urgent care reports/EKG's, [facility] records)? Report findings @ -No old charts were reviewed Differential Diagnosis (chest pain, altered mental status, abdominal pain women, abdominal pain men, vaginal bleeding, weakness, fever, dyspnea, syncope, headache, dizziness, GI bleed, back pain, seizure, CVA, palpatations, mental health, musculoskeletal)? @ -Differential Abdominal Pain Men: Appendicitis, cholecystitis, diverticulosis, ischemic bowel, pancreatitis, hepatitis, UTI, gastroenteritis, AAA, incarcerated hernia, bowel obstruction, constipation, inflammatory bowel, hepatitis, peptic ulcer disease, splenic infarction, perforated viscus, testicular torsion, this is not meant to be an all-inclusive list EKG interpreted by me (3pts min.). @ -None X-rays interpreted by me (1pt min.). @ -None done CT interpreted by me (1pt min.). @ -None done U/S interpreted by me (1pt. min.). @ -None done What testing was considered but not performed or refused? (CT, X-rays, U/S, labs)? Why? @ -None What meds were considered but not given or refused? Why? @ -None Did you discuss the management of the patient with other professionals (professionals i.e. , PA, MECHANICAL SYSTEMS DESIGN ENGINEER, lab, RT, psych nurse, psychiatric social worker, toll mechanic, teacher, conservation enforcement officer, classification case manager)? Give summary @ -No Was smoking cessation discussed for >3mins.? @ -No Was critical care preformed (if so, how long)? @ -No Were there social determinants of health that impacted care today? How? (Homelessness, low income, unemployed, alcoholism, drug addiction, transportation, low edu. Level, literacy, decrease access to med. care, prison, rehab)? @ -No Was there de-escalation of care discussed even if they declined (Discuss DNR or withdrawal of care, Hospice)? DNR status @ -No What co-morbidities impacted this encounter? (DM, HTN, Smoking, COPD, CAD, Cancer, CVA, ARF, Chemo, Hep., AIDS, mental health diagnosis, sleep apnea, morbid obesity)? @ -None Was patient admitted / discharged? Hospital course, mention meds given and route, prescriptions, significant lab abnormalities, going to OR and other pertinent info. @ -Discharge patient presented for chronic abdominal pain there is no acute complaints today. Patient discharged in stable condition. Undiagnosed new problem with uncertain prognosis? @ -No Drug Therapy requiring intensive monitoring for toxicity (Heparin, Nitro, Insuli n, Cardizem)? @ -No Were any procedures done? @ -No Diagnosis/symptom? @ -Abdominal pain Acute, or Chronic, or Acute on Chronic? @ -Chronic Uncomplicated (without systemic symptoms) or Complicated (systemic symptoms)? @ -Uncomplicated Side effects of treatment? @ -No Exacerbation, Progression, or Severe Exacerbation? @ -No Poses a threat to life or bodily function? How? (Chest pain, [place], [place], pneumonia, PE, COPD, DKA, ARF, appy, cholecystitis, CVA, Diverticulitis, Homicidal, Suicidal, threat to staff... and all critical care pts) @ -No Disposition Clinical Impression: Anxiety, Chronic abdominal pain Disposition: HOME SELF-CARE Condition: Stable Instructions (If sedation given, give patient instructions): Abdominal Pain (ED) Additional Instructions: Please return to the Emergency Department if symptoms worsen or any other concerns. Is patient prescribed a controlled substance at d/c from ED?: No Referrals: Sumeet Mejias III, MD [Primary Care Provider] - 1-2 days Time of Disposition: 13:32
[2025-02-25] MEDS: ACETAMINOPHEN TAB 500 MG TAB PO STA (13:43)
== END 2025-02-25 13:48 | disposition home or self-care (01) ==
LOC: EC 13:01
DX: R10.9 Unspecified abdominal pain (principal); G89.29 Other chronic pain; F41.9 Anxiety disorder, unspecified; Z87.891 Personal history of nicotine dependence; Z88.6 Allergy status to analgesic agent; Z91.011 Allergy to milk products; Z88.8 Allergy status to other drugs, medicaments and biological substances
CPT/HCPCS: 99283

== ENCOUNTER 2025-02-25 17:04 | Inpatient (IN) | payer MEDICARE ==
--- NOTE | 2025-02-25 17:40 | ED ---
Psych HPI - General Source: patient, RN notes reviewed Mode of arrival: ambulatory <Carley Guerra - Last Filed: 02/25/25 17:39> - General Source: patient, RN notes reviewed, old records reviewed Mode of arrival: ambulatory Limitations: no limitations - History of Present Illness MD Complaint: suicidal ideation, feels depressed -: days(s) (3) Associated Psychiatric Symptoms: depression, suicidal ideation History of same: Yes Quality: constant, getting worse Context: not taking psychiatric medications, significant life stressor Associated Symptoms: nausea, vomiting Treatments Prior to Arrival: placed on mental health hold If Self Harm: admits thoughts of self harm <Ruslan Ordonez - Last Filed: 03/04/25 21:11> - General Chief Complaint: Psychiatric Symptoms Stated Complaint: SI Time Seen by Provider: 02/25/25 17:39 - History of Present Illness Initial Comments: Quick [id number] male presenting for suicidal ideation for the past 3 days. States he self harmed today and has multiple superficial cuts to his bilateral arms. (Carley Guerra) This is a 34-year-old female to the ER for evaluation of multiple plaints suicidal thoughts has not been feeling well severe abdominal pain positive nausea vomiting and diarrhea with history of Crohn's and colitis (Ruslan Ordonez) - Related Data Home Medications Medication Instructions Recorded Confirmed Docusate [Colace] 100 mg PO BID PRN 01/17/25 02/27/25 Previous Rx's Medication Instructions Recorded Omeprazole [PriLOSEC] 20 mg PO AC-BRKFST 30 Days #30 cap 07/21/24 Atorvastatin [Lipitor] 20 mg PO HS 30 Days tab 01/23/25 ALPRAZolam [Xanax] 1 mg PO BID PRN tab 03/02/25 Minocycline [Minocin] 50 mg PO DAILY 7 Days #7 cap 03/02/25 Nicotine 14Mg/24Hr Patch [Habitrol] 1 patch TRANSDERM DAILY 14 Days 03/02/25 #14 patch Ziprasidone [Geodon] 40 mg PO 1800 30 Days #30 cap 03/02/25 fluvoxaMINE [Luvox] 75 mg PO BID 30 Days #60 tab 03/02/25 lamoTRIgine [LaMICtal] 100 mg PO HS 30 Days #30 tab 03/02/25 Allergies Allergy/AdvReac Type Severity Reaction Status Date / Time aripiprazole [From Abilify] Allergy Unknown Agitation Verified 02/27/25 11:20 cariprazine [From Vraylar] Allergy Unknown Agitation Verified 02/27/25 11:20 citalopram [From Celexa] Allergy Unknown Agitation Verified 02/27/25 11:20 divalproex sodium Allergy Unknown Agitation Verified 02/27/25 11:20 [From Depakote] paroxetine [From Paxil] Allergy Unknown Agitation Verified 02/27/25 11:20 sertraline [From Zoloft] Allergy Unknown Agitation Verified 02/27/25 11:20 metoclopramide [From Reglan] Allergy Rash/Hives Verified 02/27/25 11:20 prochlorperazine Allergy Anaphylaxis Verified 02/27/25 11:20 [From Compazine] phenobarbital AdvReac Severe Rapid Verified 02/27/25 11:20 Heart Rate zolpidem tartrate AdvReac Unknown Altered Verified 02/27/25 11:20 [From Ambien] Mental Status atropine [From Lomotil] AdvReac Rapid Verified 02/27/25 11:20 Heart Rate dicyclomine [From Bentyl] AdvReac Rapid Verified 02/27/25 11:20 Heart Rate diphenhydramine AdvReac Hallucinati Verified 02/27/25 11:20 [From Benadryl] ons diphenoxylate [From Lomotil] AdvReac Rapid Verified 02/27/25 11:20 Heart Rate estropipate [From Ogen 2.5] AdvReac Twitching Verified 02/27/25 11:20 of Legs haloperidol [From Haldol] AdvReac Agitation Verified 02/27/25 11:20 ketorolac [From Toradol] AdvReac Unknown Verified 02/27/25 11:20 lorazepam [From Ativan] AdvReac Hallucinati Verified 02/27/25 11:20 ons methylprednisolone AdvReac Altered Verified 02/27/25 11:20 [From Solu-Medrol] Mental Status ondansetron [From Zofran] AdvReac Unknown Verified 02/27/25 11:20 Review of Systems ROS Other: All systems not noted in ROS Statement are negative. <Carley Guerra - Last Filed: 02/25/25 17:39> ROS Other: All systems not noted in ROS Statement are negative. <Ruslan Ordonez - Last Filed: 03/04/25 21:11> ROS Statement: Those systems with pertinent positive or pertinent negative responses have been documented in the HPI. 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 PT IS ABLE TO MAKE DECISIONS FOR HIMSELF,IBS History of Any Multi-Drug Resistant Organisms: None Reported Past Surgical History: Tonsillectomy Additional Past Surgical History / Comment(s): wisdom teeth removed. Past Anesthesia/Blood Transfusion Reactions: No Reported Reaction Additional Past Anesthesia/Blood Transfusion Reaction / Comment(s): NEVER HAD BLOOD TRANSFUSION Past Psychological History: ADD/ADHD, Anxiety, Bipolar, Depression, PTSD Smoking Status: Former smoker Past Alcohol Use History: None Reported Past Drug Use History: None Reported - Past Family History Sister(s) Additional Family Medical History / Comment(s): He has one sister that is healthy. He also has a 4-year-old daughter that is healthy. Father Family Medical History: GERD/Reflux Additional Family Medical History / Comment(s): DAD HAS ALSO NEVER BEEN AN ALCOHOLIC-RARELY, RARELY DRINKS. Mother Family Medical History: Cancer Additional Family Medical History / Comment(s): MOM STATES SHE HAS NEVER BEEN AN ALCOHOLIC-MOM RARELY ,RARELY DRINKS. HX THYROID CANCER <Carley Guerra - Last Filed: 02/25/25 17:39> General Exam <Carley Guerra - Last Filed: 02/25/25 17:39> General appearance: alert, in no apparent distress Head exam: Present: atraumatic, normocephalic, normal inspection Eye exam: Present: normal appearance, PERRL, EOMI. Absent: scleral icterus, conjunctival injection, periorbital swelling ENT exam: Present: normal exam, mucous membranes moist Neck exam: Present: normal inspection. Absent: tenderness, meningismus, lymphadenopathy Respiratory exam: Present: normal lung sounds bilaterally. Absent: respiratory distress, wheezes, rales, rhonchi, stridor Cardiovascular Exam: Present: regular rate, normal rhythm, normal heart sounds. Absent: systolic murmur, diastolic murmur, rubs, gallop, clicks GI/Abdominal exam: Present: soft, normal bowel sounds. Absent: distended, tenderness, guarding, rebound, rigid Extremities exam: Present: normal inspection, full ROM, normal capillary refill. Absent: tenderness, pedal edema, joint swelling, calf tenderness Back exam: Present: normal inspection Neurological exam: Present: alert, oriented X3, CN II-XII intact Psychiatric exam: Present: normal affect, normal mood Skin exam: Present: warm, dry, intact, normal color. Absent: rash <Ruslan Ordonez - Last Filed: 03/04/25 21:11> - General Exam Comments Initial Comments: Visual Physical Exam Vital signs reviewed General: Well-appearing, nontoxic, no acute distress. Head: Normocephalic, atraumatic Eyes: PERRLA, EOMI ENT: Airway patent Chest: Nonlabored breathing Skin: No visual rash, normal skin tone Neuro: Alert and oriented 3 Musculoskeletal: No gross abnormalities (Carley Guerra) Course <Ruslan Ordonez - Leopoldo Filed: 03/04/25 21:11> Vital Signs 02/25/25 02/26/25 02/26/25 17:18 01:23 04:40 Temperature 99.6 F 98.3 F Pulse Rate 107 H 71 65 Respiratory 18 20 20 Rate Blood Pressure 107/65 118/72 119/69 O2 Sat by Pulse 95 98 98 Oximetry - Reevaluation(s) Reevaluation #1: 02/25/25 23:01 Medical records reviewed (Ruslan Ordonez) Reevaluation #2: Patient's symptoms are improving medically cleared for psychiatric evaluation (Ruslan Ordonez) Reevaluation #3: Patient informed of results questions answered (Ruslan Ordonez) Reevaluation #4: Was pt. sent in by a medical professional or institution (, PA, POSTIE, urgent care, hospital, or long term...) When possible be specific @ -no Did you speak to anyone other than the patient for history (EMS, parent, family, police, friend...)? What history was obtained from this source @ -no Did you review nursing and triage notes (agree or disagree)? Why? @ -agree Are old charts reviewed (outside hosp., previous admission, EMS record, old EKG, old radiological studies, urgent care reports/EKG's, long term records)? Report findings @ -yes Differential Diagnosis (chest pain, altered mental status, abdominal pain women, abdominal pain men, vaginal bleeding, weakness, fever, dyspnea, syncope, headache, dizziness, GI bleed, back pain, seizure, CVA, palpatations, mental health, musculoskeletal)? @ -prior EKG interpreted by me (3pts min.). @ -no X-rays interpreted by me (1pt min.). @ -no CT interpreted by me (1pt min.). @ -yes negative for acute disease U/S interpreted by me (1pt. min.). @ -no What testing was considered but not performed or refused? (CT, X-rays, U/S, labs)? Why? @ -none What meds were considered but not given or refused? Why? @ -none Did you discuss the management of the patient with other professionals (professionals i.e. , PA, POSTIE, lab, RT, psych nurse, social media content manager, flight operations specialist, teacher, chief communications officer, caseworker)? Give summary @ -no Was smoking cessation discussed for >3mins.? @ -no Was critical care preformed (if so, how long)? @ -no Were there social determinants of health that impacted care today? How? ([place] elessness, low income, unemployed, alcoholism, drug addiction, transportation, low edu. Level, literacy, decrease access to med. care, long-term, rehab)? @ -none Was there de-escalation of care discussed even if they declined (Discuss DNR or withdrawal of care, Hospice)? DNR status @ -no What co-morbidities impacted this encounter? (DM, HTN, Smoking, COPD, CAD, Cancer, CVA, ARF, Chemo, Hep., AIDS, mental health diagnosis, sleep apnea, morbid obesity)? @ -none Was patient admitted / discharged? Hospital course, mention meds given and route, prescriptions, significant lab abnormalities, going to OR and other pertinent info. @ - 34 male will be admitted for psychiatric evaluation and treatment Admitted Undiagnosed new problem with uncertain prognosis? @ -no Drug Therapy requiring intensive monitoring for toxicity (Heparin, Nitro, Insulin, Cardizem)? @ -no Were any procedures done? @ -no Diagnosis/symptom? @ -Major depression acute psychosis Acute, or Chronic, or Acute on Chronic? @ -Acute Uncomplicated (without systemic symptoms) or Complicated (systemic symptoms)? @ -Complicated Side effects of treatment? @ -no Exacerbation, Progression, or Severe Exacerbation? @ -exacerbation Poses a threat to life or bodily function? How? (Chest pain, [place], [place], pneumonia, PE, COPD, DKA, ARF, appy, cholecystitis, CVA, Diverticulitis, Homicidal, Suicidal, threat to staff... and all critical care pts) @ -yes chronic disease (Ruslan Ordonez) Reevaluation #5: Differential Abdominal Pain Men: Appendicitis, cholecystitis, diverticulosis, ischemic bowel, pancreatitis, hepatitis, UTI, gastroenteritis, AAA, incarcerated hernia, bowel obstruction, constipation, inflammatory bowel, hepatitis, peptic ulcer disease, splenic infarction, perforated viscus, testicular torsion, this is not meant to be an all-inclusive list Differential Mental Health Depression, anxiety, bipolar, psychosis, schizophrenia, borderline personality, situational depression, adjustment disorder, behavioral disorder, brain tumor, malingering, substance abuse, encephalopathy, medication reaction, dementia, hypothyroidism, degenerative neurologic disorder, lupus.... This is not meant to be all-inclusive list (Ruslan Ordonez) Medical Decision Making <Carley Guerra - Last Filed: 02/25/25 17:39> - Lab Data Result diagrams: 02/26/25 01:07 02/28/25 09:48 - Radiology Data Radiology results: report reviewed (CT on pelvis negative for acute disease), image reviewed <Ruslan Ordonez - Last Filed: 03/04/25 21:11> - Medical Decision Making I completed the quick note portion of this chart signed Carley Guerra PA-C (Carley Guerra) 34 male will be admitted for psychiatric evaluation and treatment (Ruslan Ordonez) - Lab Data Lab Results 02/26/25 02/26/25 02/26/25 Range/Units 01:07 01:07 01:07 WBC 11.35 H (4.50-10.00) 10*3/uL RBC 5.05 (4.40-5.60) 10*6/uL Hgb 15.7 (13.0-17.0) g/dL Hct 45.8 (39.6-50.0) % MCV 90.7 (80.0-97.0) fL MCH 31.1 (27.0-32.0) pg MCHC 34.3 (32.0-37.0) g/dL Plt Count 181 (140-440) 10*3/uL MPV 10.0 (9.5-12.2) fL Immature Gran % (Auto) 0.3 % Neutrophils % 66.7 % Lymphocytes % 26.2 % Monocytes % 6.1 % Eosinophils % 0.4 % Basophils % 0.3 % Immature Gran # 0.03 (0.00-0.04) 10*3/uL Neutrophils # 7.59 (1.80-7.70) 10*3/uL Lymphocytes # 2.97 (0.90-5.00) 10*3/uL Monocytes # 0.69 (0.20-1.00) 10*3/uL Eosinophils # 0.04 (0.04-0.35) 10*3/uL Basophils # 0.03 (0.00-0.10) 10*3/uL PT 11.1 (10.0-12.5) sec INR 1.0 (<1.2) APTT 24.8 (22.0-30.0) sec Sodium 143 (137-145) mmol/L Potassium 3.5 (3.5-5.1) mmol/L Chloride 101 (98-107) mmol/L Carbon Dioxide 26 (22-30) mmol/L Anion Gap 16 mmol/L BUN 15 (9-20) mg/dL Creatinine 0.94 (0.66-1.25) mg/dL Est GFR (CKD-EPI)AfAm >90 (>60 ml/min/1.73 sqM) Est GFR (CKD-EPI)NonAf >90 (>60 ml/min/1.73 sqM) Glucose 82 (74-99) mg/dL Plasma Lactic Acid Socrates (0.7-2.0) mmol/L Calcium 10.7 H (8.4-10.2) mg/dL Phosphorus 3.7 (2.5-4.5) mg/dL Magnesium 2.0 (1.6-2.3) mg/dL Total Bilirubin 1.3 (0.2-1.3) mg/dL AST 23 (17-59) U/L ALT 15 (4-49) U/L Alkaline Phosphatase 92 (38-126) U/L Troponin I (0.000-0.034) ng/mL Total Protein 8.0 (6.3-8.2) g/dL Albumin 5.4 H (3.5-5.0) g/dL Urine Color Urine Appearance (Clear) Urine pH (5.0-8.0) Ur Specific [place] (1.001-1.035) Urine Protein (Negative) Urine Glucose (UA) (Negative) Urine Ketones (Negative) Urine Blood (Negative) Urine Nitrite (Negative) Urine Bilirubin (Negative) Urine Urobilinogen (<2.0) mg/dL Ur Leukocyte Esterase (Negative) Urine RBC (0-5) /hpf Urine WBC (0-5) /hpf Ur Squamous Epith Cells (0-4) /hpf Hyaline Casts (0-2) /lpf Urine Mucus (None) /hpf Urine Opiates Screen (NotDetected) Ur Oxycodone Screen (NotDetected) Urine Methadone Screen (NotDetected) Ur Barbiturates Screen (NotDetected) U Tricyclic Antidepress (NotDetected) Ur Phencyclidine Scrn (NotDetected) Ur Amphetamines Screen (NotDetected) U Methamphetamines Scrn (NotDetected) U Benzodiazepines Scrn (NotDetected) Urine Cocaine Screen (NotDetected) U Marijuana (THC) Screen (NotDetected) Serum Alcohol <10 mg/dL Influenza Type A (PCR) (Not Detectd) Influenza Type B (PCR) (Not Detectd) RSV (PCR) (Not Detectd) SARS-CoV-2 (PCR) (Not Detectd) 02/26/25 02/26/25 02/26/25 Range/Units 01:07 01:07 02:35 WBC (4.50-10.00) 10*3/uL RBC (4.40-5.60) 10*6/uL Hgb (13.0-17.0) g/dL Hct (39.6-50.0) % MCV (80.0-97.0) fL MCH (27.0-32.0) pg MCHC (32.0-37.0) g/dL Plt Count (140-440) 10*3/uL MPV (9.5-12.2) fL Immature Gran % (Auto) % Neutrophils % % Lymphocytes % % Monocytes % % Eosinophils % % Basophils % % Immature Gran # (0.00-0.04) 10*3/uL Neutrophils # (1.80-7.70) 10*3/uL Lymphocytes # (0.90-5.00) 10*3/uL Monocytes # (0.20-1.00) 10*3/uL Eosinophils # (0.04-0.35) 10*3/uL Basophils # (0.00-0.10) 10*3/uL PT (10.0-12.5) sec INR (<1.2) APTT (22.0-30.0) sec Sodium (137-145) mmol/L Potassium (3.5-5.1) mmol/L Chloride (98-107) mmol/L Carbon Dioxide (22-30) mmol/L Anion Gap mmol/L BUN (9-20) mg/dL Creatinine (0.66-1.25) mg/dL Est GFR (CKD-EPI)AfAm (>60 ml/min/1.73 sqM) Est GFR (CKD-EPI)NonAf (>60 ml/min/1.73 sqM) Glucose (74-99) mg/dL Plasma Lactic Acid Socrates 1.3 (0.7-2.0) mmol/L Calcium (8.4-10.2) mg/dL Phosphorus (2.5-4.5) mg/dL Magnesium (1.6-2.3) mg/dL Total Bilirubin (0.2-1.3) mg/dL AST (17-59) U/L ALT (4-49) U/L Alkaline Phosphatase (38-126) U/L Troponin I <0.012 (0.000-0.034) ng/mL Total Protein (6.3-8.2) g/dL Albumin (3.5-5.0) g/dL Urine Color Yellow Urine Appearance Cloudy (Clear) Urine pH 6.5 (5.0-8.0) Ur Specific [place] 1.025 (1.001-1.035) Urine Protein 1+ H (Negative) Urine Glucose (UA) Negative (Negative) Urine Ketones 2+ H (Negative) Urine Blood Trace H (Negative) Urine Nitrite Negative (Negative) Urine Bilirubin Negative (Negative) Urine Urobilinogen 4.0 (<2.0) mg/dL Ur Leukocyte Esterase Negative (Negative) Urine RBC 10 H (0-5) /hpf Urine WBC 49 H (0-5) /hpf Ur Squamous Epith Cells 2 (0-4) /hpf Hyaline Casts 135 H (0-2) /lpf Urine Mucus Many H (None) /hpf Urine Opiates Screen Detected H (NotDetected) Ur Oxycodone Screen Not Detected (NotDetected) Urine Methadone Screen Not Detected (NotDetected) Ur Barbiturates Screen Not Detected (NotDetected) U Tricyclic Antidepress Not Detected (NotDetected) Ur Phencyclidine Scrn Not Detected (NotDetected) Ur Amphetamines Screen Not Detected (NotDetected) U Methamphetamines Scrn Not Detected (NotDetected) U Benzodiazepines Scrn Detected H (NotDetected) Urine Cocaine Screen Not Detected (NotDetected) U Marijuana (THC) Screen Detected H (NotDetected) Serum Alcohol mg/dL Influenza Type A (PCR) (Not Detectd) Influenza Type B (PCR) (Not Detectd) RSV (PCR) (Not Detectd) SARS-CoV-2 (PCR) (Not Detectd) 02/26/25 Range/Units 05:58 WBC (4.50-10.00) 10*3/uL RBC (4.40-5.60) 10*6/uL Hgb (13.0-17.0) g/dL Hct (39.6-50.0) % MCV (80.0-97.0) fL MCH (27.0-32.0) pg MCHC (32.0-37.0) g/dL Plt Count (140-440) 10*3/uL MPV (9.5-12.2) fL Immature Gran % (Auto) % Neutrophils % % Lymphocytes % % Monocytes % % Eosinophils % % Basophils % % Immature Gran # (0.00-0.04) 10*3/uL Neutrophils # (1.80-7.70) 10*3/uL Lymphocytes # (0.90-5.00) 10*3/uL Monocytes # (0.20-1.00) 10*3/uL Eosinophils # (0.04-0.35) 10*3/uL Basophils # (0.00-0.10) 10*3/uL PT (10.0-12.5) sec INR (<1.2) APTT (22.0-30.0) sec Sodium (137-145) mmol/L Potassium (3.5-5.1) mmol/L Chloride (98-107) mmol/L Carbon Dioxide (22-30) mmol/L Anion Gap mmol/L BUN (9-20) mg/dL Creatinine (0.66-1.25) mg/dL Est GFR (CKD-EPI)AfAm (>60 ml/min/1.73 sqM) Est GFR (CKD-EPI)NonAf (>60 ml/min/1.73 sqM) Glucose (74-99) mg/dL Plasma Lactic Acid Socrates (0.7-2.0) mmol/L Calcium (8.4-10.2) mg/dL Phosphorus (2.5-4.5) mg/dL Magnesium (1.6-2.3) mg/dL Total Bilirubin (0.2-1.3) mg/dL AST (17-59) U/L ALT (4-49) U/L Alkaline Phosphatase (38-126) U/L Troponin I (0.000-0.034) ng/mL Total Protein (6.3-8.2) g/dL Albumin (3.5-5.0) g/dL Urine Color Urine Appearance (Clear) Urine pH (5.0-8.0) Ur Specific [place] (1.001-1.035) Urine Protein (Negative) Urine Glucose (UA) (Negative) Urine Ketones (Negative) Urine Blood (Negative) Urine Nitrite (Negative) Urine Bilirubin (Negative) Urine Urobilinogen (<2.0) mg/dL Ur Leukocyte Esterase (Negative) Urine RBC (0-5) /hpf Urine WBC (0-5) /hpf Ur Squamous Epith Cells (0-4) /hpf Hyaline Casts (0-2) /lpf Urine Mucus (None) /hpf Urine Opiates Screen (NotDetected) Ur Oxycodone Screen (NotDetected) Urine Methadone Screen (NotDetected) Ur Barbiturates Screen (NotDetected) U Tricyclic Antidepress (NotDetected) Ur Phencyclidine Scrn (NotDetected) Ur Amphetamines Screen (NotDetected) U Methamphetamines Scrn (NotDetected) U Benzodiazepines Scrn (NotDetected) Urine Cocaine Screen (NotDetected) U Marijuana (THC) Screen (NotDetected) Serum Alcohol mg/dL Influenza Type A (PCR) Not Detected (Not Detectd) Influenza Type B (PCR) Not Detected (Not Detectd) RSV (PCR) Not Detected (Not Detectd) SARS-CoV-2 (PCR) Not Detected (Not Detectd) Disposition <Carley Guerra - Last Filed: 02/25/25 17:39> Is patient prescribed a controlled substance at d/c from ED?: No <Ruslan Ordonez - Last Filed: 03/04/25 21:11> Clinical Impression: Bipolar I disorder, current or most recent episode manic, severe, OCD (obsessive compulsive disorder), Depression, Schizoaffective disorder, Anxiety Disposition: TRANSFER TO PSYCH HOSP/UNIT Condition: Stable
[2025-02-26 01:13] LABS: Basophils # (A) 0.03 10*3/uL (0.00-0.10); Basophils % (A) 0.3 %; Eosinophils # (A) 0.04 10*3/uL (0.04-0.35); Eosinophils % (A) 0.4 %; HCT 45.8 % (39.6-50.0); HGB 15.7 g/dL (13.0-17.0); Lymphocytes # (A) 2.97 10*3/uL (0.90-5.00); Lymphocytes % (A) 26.2 %; MCH 31.1 pg (27.0-32.0); MCHC 34.3 g/dL (32.0-37.0); MCV 90.7 fL (80.0-97.0); Monocytes # (A) 0.69 10*3/uL (0.20-1.00); Monocytes % (A) 6.1 %; Neutrophils # (A) 7.59 10*3/uL (1.80-7.70); Neutrophils % (A) 66.7 %; Platelet Count 181 10*3/uL (140-440); RBC 5.05 10*6/uL (4.40-5.60); RDW 14.1 % (11.5-14.5); WBC 11.35 10*3/uL (4.50-10.00)
[2025-02-26] MEDS: SODIUM CHLORIDE 0.9% 1,000 ML IV ONE (01:20)
[2025-02-26] MEDS: MORPHINE SULFATE 4 MG/ML SYRINGE IV STA (01:26)
[2025-02-26 01:34] LABS: Partial Thromboplastin Time 24.8 sec (22.0-30.0); Prothrombin Time 11.1 sec (10.0-12.5)
[2025-02-26] MEDS: droPERidol 2.5 MG/ML VIAL IVP ONE (01:34)
[2025-02-26 01:37] LABS: ALT 15 U/L (4-49); AST 23 U/L (17-59); African American GFR (CKD) >90 (>60 ml/min/1.73 sqM); Albumin 5.4 g/dL (3.5-5.0); Alcohol <10 mg/dL; Alkaline Phosphatase 92 U/L (38-126); Anion Gap 16 mmol/L; Blood Urea Nitrogen 15 mg/dL (9-20); Calcium 10.7 mg/dL (8.4-10.2); Carbon Dioxide 26 mmol/L (22-30); Chloride 101 mmol/L (98-107); Glucose 82 mg/dL (74-99); Non-African American GFR(CKD) >90 (>60 ml/min/1.73 sqM); Phosphorus 3.7 mg/dL (2.5-4.5); Potassium 3.5 mmol/L (3.5-5.1); Sodium 143 mmol/L (137-145); Total Bilirubin 1.3 mg/dL (0.2-1.3)
[2025-02-26] MEDS: SODIUM CHLORIDE 0.9% 1,000 ML IV SCH ×2 (01:37→04:40)
[2025-02-26 02:53] LABS: Appearance,Urine Cloudy (Clear); Bilirubin,Urine Negative (Negative); Blood,Urine Trace (Negative); Color,Urine Yellow; Glucose,Urine (UA) Negative (Negative); Hyaline Casts,Urine 135 /lpf (0-2); Ketones,Urine 2+ (Negative); Leukocyte Esterase,Urine Negative (Negative); Mucus,Urine Many /hpf; Nitrite,Urine Negative (Negative); PH, Urine 6.5 (5.0-8.0); Protein,Urine 1+ (Negative); RBC,Urine 10 /hpf (0-5); Specific Gravity,Urine 1.025 (1.001-1.035); Squamous Epithelial Cell,Urine 2 /hpf (0-4); WBC,Urine 49 /hpf (0-5)
[2025-02-26 03:30] LABS: Amphetamine Screen,Urine Not Detected (NotDetected); Barbiturate Screen,Urine Not Detected (NotDetected); Benzodiazepines Screen,Urine Detected (NotDetected); Cocaine Screen,Urine Not Detected (NotDetected); Methadone Screen, Urine Not Detected (NotDetected); Opiate Screen,Urine Detected (NotDetected); Oxycodone Screen, Urine Not Detected (NotDetected); Phencyclidine Screen,Urine Not Detected (NotDetected); Tricyclic Antidepressant,Urine Not Detected (NotDetected); Urn Cannabinoid Scrn Detected (NotDetected)
--- NOTE | 2025-02-26 04:30 | CT ---
EXAM: CT Abdomen and Pelvis With Intravenous Contrast CLINICAL HISTORY: ITS.REASON CT Reason: pain TECHNIQUE: Axial computed tomography images of the abdomen and pelvis with intravenous contrast. CTDI is 13.2 mGy and DLP is 655.2 mGy-cm. This CT exam was performed using one or more of the following dose reduction techniques: automated exposure control, adjustment of the mA and/or kV according to patient size, and/or use of iterative reconstruction technique. COMPARISON: No relevant prior studies available. FINDINGS: Lung bases: Unremarkable. No mass. No consolidation. ABDOMEN: Liver: Unremarkable. No mass. Gallbladder and bile ducts: Unremarkable. No calcified stones. No ductal dilation. Pancreas: Unremarkable. No mass. No ductal dilation. Spleen: Unremarkable. No splenomegaly. Adrenals: Unremarkable. No mass. Kidneys and ureters: Unremarkable. No solid mass. No hydronephrosis. Stomach and bowel: Unremarkable. No obstruction. No mucosal thickening. PELVIS: Appendix: No findings to suggest acute appendicitis. Bladder: Unremarkable. No mass. Reproductive: Unremarkable as visualized. ABDOMEN and PELVIS: Intraperitoneal space: Unremarkable. No free air. No significant fluid collection. Bones/joints: No acute fracture. No dislocation. Soft tissues: Unremarkable. Vasculature: Unremarkable. No abdominal aortic aneurysm. Lymph nodes: Unremarkable. No enlarged lymph nodes. IMPRESSION: Normal abdomen and pelvis CT.
[2025-02-26] MEDS: HYDROmorphone 1 MG/ML 1 ML SYRINGE IVP STA (04:58)
[2025-02-26 06:41] LABS: Influenza A Not Detected (Not Detectd); Influenza B Not Detected (Not Detectd); RSV Not Detected (Not Detectd)
[2025-02-26] MEDS ORDERED: ACETAMINOPHEN TAB 325 MG TAB PO PRN (06:46)
[2025-02-26] MEDS ORDERED: MAGNESIUM HYDROXIDE 2,400 MG/30 ML CUP PO PRN (06:46)
[2025-02-26] MEDS ORDERED: MAG HYDROX/AL HYDROX/SIMETH 355 ML BOTTLE PO PRN (06:46)
[2025-02-26] MEDS ORDERED: ALPRAZolam 1 MG TAB PO PRN (07:13)
[2025-02-26] MEDS: NICOTINE 14MG/24HR PATCH TRANSDERM SCH (08:48)
[2025-02-26] MEDS: ALPRAZolam 0.5 MG TAB PO PRN (08:57)
--- NOTE | 2025-02-26 11:53 | P.HP ---
Psychiatric H&P - . H&P Date: 02/26/25 History & Physical: Allergies Allergy/AdvReac Type Severity Reaction Status Date / Time aripiprazole from Abilify Allergy Unknown Agitation Verified 02/25/25 17:20 cariprazine from Vraylar Allergy Unknown Agitation Verified 02/25/25 17:20 citalopram from Celexa Allergy Unknown Agitation Verified 02/25/25 17:20 divalproex sodium Allergy Unknown Agitation Verified 02/25/25 17:20 From Depakote paroxetine from Paxil Allergy Unknown Agitation Verified 02/25/25 17:20 sertraline from Zoloft Allergy Unknown Agitation Verified 02/25/25 17:20 metoclopramide from Reglan Allergy Rash/Hives Verified 02/25/25 17:20 prochlorperazine Allergy Anaphylaxis Verified 02/25/25 17:20 From Compazine phenobarbital AdvReac Severe Rapid Verified 02/25/25 17:20 Heart Rate zolpidem tartrate AdvReac Unknown Altered Verified 02/25/25 17:20 From Ambien Mental Status atropine from Lomotil AdvReac Rapid Verified 02/25/25 17:20 Heart Rate dicyclomine from Bentyl AdvReac Rapid Verified 02/25/25 17:20 Heart Rate diphenhydramine AdvReac Hallucinati Verified 02/25/25 17:20 From Benadryl ons diphenoxylate from Lomotil AdvReac Rapid Verified 02/25/25 17:20 Heart Rate estropipate from Ogen 2.5 AdvReac Twitching Verified 02/25/25 17:20 of Legs haloperidol from Haldol AdvReac Agitation Verified 02/25/25 17:20 ketorolac from Toradol AdvReac Unknown Verified 02/25/25 17:20 lorazepam from Ativan AdvReac Hallucinati Verified 02/25/25 17:20 ons methylprednisolone AdvReac Altered Verified 02/25/25 17:20 From Solu-Medrol Mental Status ondansetron from Zofran AdvReac Unknown Verified 02/25/25 17:20 Vital Signs Temp 97.8 F 02/26/25 08:50 Pulse 61 02/26/25 08:50 Resp 16 02/26/25 07:16 BP 102/64 02/26/25 08:50 Pulse Ox 98 02/26/25 08:50 FiO2 Intake & Output 02/25/25 02/26/25 02/26/25 18:59 06:59 18:59 Weight 70.76 kg 64.609 kg Laboratory Last Values WBC 11.35 10*3/uL (4.50-10.00) H 02/26/25 01:07 RBC 5.05 10*6/uL (4.40-5.60) 02/26/25 01:07 Hgb 15.7 g/dL (13.0-17.0) 02/26/25 01:07 Hct 45.8 % (39.6-50.0) 02/26/25 01:07 MCV 90.7 fL (80.0-97.0) 02/26/25 01:07 MCH 31.1 pg (27.0-32.0) 02/26/25 01:07 MCHC 34.3 g/dL (32.0-37.0) 02/26/25 01:07 Plt Count 181 10*3/uL (140-440) 02/26/25 01:07 MPV 10.0 fL (9.5-12.2) 02/26/25 01:07 Immature Gran % (Auto) 0.3 % 02/26/25 01:07 Neutrophils % 66.7 % 02/26/25 01:07 Lymphocytes % 26.2 % 02/26/25 01:07 Monocytes % 6.1 % 02/26/25 01:07 Eosinophils % 0.4 % 02/26/25 01:07 Basophils % 0.3 % 02/26/25 01:07 Immature Gran # 0.03 10*3/uL (0.00-0.04) 02/26/25 01:07 Neutrophils # 7.59 10*3/uL (1.80-7.70) 02/26/25 01:07 Lymphocytes # 2.97 10*3/uL (0.90-5.00) 02/26/25 01:07 Monocytes # 0.69 10*3/uL (0.20-1.00) 02/26/25 01:07 Eosinophils # 0.04 10*3/uL (0.04-0.35) 02/26/25 01:07 Basophils # 0.03 10*3/uL (0.00-0.10) 02/26/25 01:07 PT 11.1 sec (10.0-12.5) 02/26/25 01:07 INR 1.0 (<1.2) 02/26/25 01:07 APTT 24.8 sec (22.0-30.0) 02/26/25 01:07 Sodium 143 mmol/L (137-145) 02/26/25 01:07 Potassium 3.5 mmol/L (3.5-5.1) 02/26/25 01:07 Chloride 101 mmol/L (98-107) 02/26/25 01:07 Carbon Dioxide 26 mmol/L (22-30) 02/26/25 01:07 Anion Gap 16 mmol/L 02/26/25 01:07 BUN 15 mg/dL (9-20) 02/26/25 01:07 Creatinine 0.94 mg/dL (0.66-1.25) 02/26/25 01:07 Est GFR (CKD-EPI)AfAm >90 (>60 ml/min/1.73 sqM) 02/26/25 01:07 Est GFR (CKD-EPI)NonAf >90 (>60 ml/min/1.73 sqM) 02/26/25 01:07 Glucose 82 mg/dL (74-99) 02/26/25 01:07 Plasma Lactic Acid Socrates 1.3 mmol/L (0.7-2.0) 02/26/25 01:07 Calcium 10.7 mg/dL (8.4-10.2) H 02/26/25 01:07 Phosphorus 3.7 mg/dL (2.5-4.5) 02/26/25 01:07 Magnesium 2.0 mg/dL (1.6-2.3) 02/26/25 01:07 Total Bilirubin 1.3 mg/dL (0.2-1.3) 02/26/25 01:07 AST 23 U/L (17-59) 02/26/25 01:07 ALT 15 U/L (4-49) 02/26/25 01:07 Alkaline Phosphatase 92 U/L (38-126) 02/26/25 01:07 Troponin I <0.012 ng/mL (0.000-0.034) 02/26/25 01:07 Total Protein 8.0 g/dL (6.3-8.2) 02/26/25 01:07 Albumin 5.4 g/dL (3.5-5.0) H 02/26/25 01:07 Urine Color Yellow 02/26/25 02:35 Urine Appearance Cloudy (Clear) 02/26/25 02:35 Urine pH 6.5 (5.0-8.0) 02/26/25 02:35 Ur Specific [place] 1.025 (1.001-1.035) 02/26/25 02:35 Urine Protein 1+ (Negative) H 02/26/25 02:35 Urine Glucose (UA) Negative (Negative) 02/26/25 02:35 Urine Ketones 2+ (Negative) H 02/26/25 02:35 Urine Blood Trace (Negative) H 02/26/25 02:35 Urine Nitrite Negative (Negative) 02/26/25 02:35 Urine Bilirubin Negative (Negative) 02/26/25 02:35 Urine Urobilinogen 4.0 mg/dL (<2.0) 02/26/25 02:35 Ur Leukocyte Esterase Negative (Negative) 02/26/25 02:35 Urine RBC 10 /hpf (0-5) H 02/26/25 02:35 Urine WBC 49 /hpf (0-5) H 02/26/25 02:35 Ur Squamous Epith Cells 2 /hpf (0-4) 02/26/25 02:35 Hyaline Casts 135 /lpf (0-2) H 02/26/25 02:35 Urine Mucus Many /hpf (None) H 02/26/25 02:35 Urine Opiates Screen Detected (NotDetected) H 02/26/25 02:35 Ur Oxycodone Screen Not Detected (NotDetected) 02/26/25 02:35 Urine Methadone Screen Not Detected (NotDetected) 02/26/25 02:35 Ur Barbiturates Screen Not Detected (NotDetected) 02/26/25 02:35 U Tricyclic Antidepress Not Detected (NotDetected) 02/26/25 02:35 Ur Phencyclidine Scrn Not Detected (NotDetected) 02/26/25 02:35 Ur Amphetamines Screen Not Detected (NotDetected) 02/26/25 02:35 U Methamphetamines Scrn Not Detected (NotDetected) 02/26/25 02:35 U Benzodiazepines Scrn Detected (NotDetected) H 02/26/25 02:35 Urine Cocaine Screen Not Detected (NotDetected) 02/26/25 02:35 U Marijuana (THC) Screen Detected (NotDetected) H 02/26/25 02:35 Serum Alcohol <10 mg/dL 02/26/25 01:07 Influenza Type A (PCR) Not Detected (Not Detectd) 02/26/25 05:58 Influenza Type B (PCR) Not Detected (Not Detectd) 02/26/25 05:58 RSV (PCR) Not Detected (Not Detectd) 02/26/25 05:58 SARS-CoV-2 (PCR) Not Detected (Not Detectd) 02/26/25 05:58 02/26/25 11:35 Identifying information: Patient is a 34-year-old male, living with mom who is his guardian, on disability HPI: Patient presented to the hospital last night, due to self-harm suicidal ideations and depression. Patient has been admitted several times in the mental health unit and seen several times in the ER for similar complaints. Patient was seen today patient always agreeable to speak to justowriter operator. He appeared to be anxious, overwhelmed. States that he had a "bad day" and states that he also had a "meltdown". States that he ended up cutting his forearm several times he has several superficial cuts over his arms. He states that he used a kitchen knife. Claims that he was in distress was crying. Claims that he has not seen his daughter in a very long time, is worried about her, also claimed that he had an "IBS attack". Claims that he is compliant with his medications. States that he developed a outbreak of his rosacea and states that he was scratching and now it is even more inflamed. He is endorsing anxiety, claims that he is calm down with regard to his mood however was feeling depressed. States that he is sleeping fairly appetite is fair. Patient denies any homicidal ideations intent or plan. At this time patient denies any visual hallucinations. Patient denies any flight of ideas racing thoughts and increased in goal directed behavior. Patient admits to using no substances. Urine drug screen is positive for benzodiazepines and marijuana. PAST PSYCHIATRIC HISTORY: Patient has a history of OCD, close is unspecified, PTSD, developmental delay. currently prescribed Luvox 75 mg twice daily, Lamictal 100 mg at bedtime, Geodon 40 mg at 5 PM. He reports 8-10 previous inpatient hospitalizations most recent being at this facility back in 01/28. He follows with [facility] with maps showing patient last filled Xanax 1 mg 3 times daily on 01/04/[address] Mejias. Patient denies any history of suicide attempts in the past. He does report a history of self harming. PMH: as per ER note ALLERGIES: as per EMR SUBSTANCE USE HISTORY: As per HPI FAMILY PSYCHIATRIC/SUBSTANCE USE HISTORY: He states his mother side of the family has schizophrenia SOCIAL HISTORY: Patient lives with his mom who is also his guardian. He is single and has 1 kid. 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 He is on [employer] MENTAL STATUS EXAM: General Appearance: Patient appears to be stated age is alert, directable, and attempts to cooperate. Patient appears to have poor hygiene and grooming. He has a significant rosacea rash over his nose and cheeks. Several cuts over his forearms. Behavior: Patient is seated without any agitated behavior. Appears to be and mild distress, anxious Speech: Patient's speech is fluent and nonpressured. Mood/Affect: Patient reports their mood is anxious, affect is congruent Suicidality/Homicidality: Patient denies having any homicidal ideation intent or plan. He denies any suicidal ideations, no specific plan or intent Perceptions: Patient denies any visual hallucinations and he reports auditory hallucinations Though content/process: There is no evidence of any delusional thought content and thought process is linear and goal-directed. Focused on the stressors Memory and concentration: AOX3, grossly intact for the purposes of this session. Can spell "WORLD" backwards Judgment and insight: Poor STRENGTHS/WEAKNESSES: strength is that patient is resilient, compliant with medications and has a guardian. Weakness is that patient has poor judgment and is impulsive INTELLECT: Below average IMPRESSIONS: Adjustment disorder with depression and anxiety Psychosis, unspecified OCD Developmental delay Cannabis use disorder PLAN: -Patient is admitted under voluntary status to MHU for stabilization of psychiatric symptoms and safety. Patient has signed adult voluntary form and has signed medication consent and is placed in patient's chart. -Medications : Continue with Luvox 75 mg twice daily for mood/anxiety, Geodon 40 mg at 6 PM for mood stabilization/psychosis, Lamictal 100 mg daily for mood stabilization/depression -xanax PRN for agitation/aggression -Patient was counselled on substance abuse and desired to cut back on use. Patient states they do not want rehab and wish to cut back subtance use on their own -Patient was informed of the risks, benefits and side effects of the medications and patient verbally consented to taking the medications. Patient signed med consent form and was placed in chart. Patient was offered medication information and declined it -Internal Medicine consult to perform medical evaluation and physical. -NRT -not needed as patient does not smoke -SW on board for discharge planning. Encourage patient to participate in groups to work on coping skills. 02/26/25 11:36 02/26/25 11:43 02/26/25 11:49
[2025-02-26] MEDS: MINOCYCLINE 50 MG CAP PO SCH (11:59)
[2025-02-26] MEDS: ZIPRASIDONE 40 MG CAP PO SCH (18:15)
[2025-02-26] MEDS: lamoTRIgine 100 MG TAB PO SCH (20:49)
[2025-02-26] MEDS: ATORVASTATIN 20 MG TAB PO SCH (20:49)
--- NOTE | 2025-02-27 11:04 | P.PN ---
Progress Note - Text Progress Note Date: 02/27/25 Interval history: Patient was seen today for psychiatric follow-up, he was laying down in bed. agreeable to speak to curriculum writer in the office today. Patient claims that he is doing a bit better today appears to be, his affect. States that he has been taking his medications not reporting any side effects at this time. Not reporting any rash. Claims that his rosacea on his face has been improving mildly since yesterday. He claims that he has been mainly "sleeping" catching up on the rest, will try to go to some groups today and has been showering. Denies any auditory or visual hallucinations denies any suicidal homicidal ideations intent or plan. MENTAL STATUS EXAM: General Appearance: Patient appears to be stated age is alert, directable, and attempts to cooperate. Patient appears to have improving hygiene and grooming. He has a significant rosacea rash over his nose and cheeks. Several cuts over his forearms. Behavior: Patient is seated without any agitated behavior. Appears to be and mild distress, improving Speech: Patient's speech is fluent and nonpressured. Mood/Affect: Patient reports their mood is improving mildly, affect is congruent Suicidality/Homicidality: Patient denies having any homicidal ideation intent or plan. He denies any suicidal ideations, no specific plan or intent Perceptions: Patient denies any visual hallucinations and he reports auditory hallucinations Though content/process: There is no evidence of any delusional thought content and thought process is linear and goal-directed. Less focused on the stressors Memory and concentration: AOX3, grossly intact for the purposes of this session Judgment and insight: Poor, improving mildly. IMPRESSIONS: Adjustment disorder with depression and anxiety Psychosis, unspecified OCD Developmental delay Cannabis use disorder PLAN: -Patient is admitted under voluntary status to MHU for stabilization of psychiatric symptoms and safety. Patient has signed adult voluntary form and has signed medication consent and is placed in patient's chart. -Medications : Luvox 75 mg twice daily for mood/anxiety, Geodon 40 mg at 6 PM for mood stabilization/psychosis, Lamictal 100 mg daily for mood stabilization/depression. patient is not reporting any new rash at this time. -xanax PRN for agitation/aggression -NRT -not needed as patient does not smoke -SW on board for discharge planning. Encourage patient to participate in groups to work on coping skills. likely discharge [facility] if patient is improving psychiatrically.
[2025-02-27] MEDS: ALPRAZolam 1 MG TAB PO PRN (21:52)
[2025-02-27] MEDS ORDERED: LORazepam 0.5 MG TAB PO PRN (23:00)
[2025-02-28 00:41] VITALS: RESP 16
--- NOTE | 2025-02-28 06:18 | P.MDCNMH ---
History of Present Illness H&P Date: 02/28/25 34-year-old male with rosacea Patient coming in for mental health evaluation for self-inflicted wounds on bilateral forearms patient admits to nervous breakdown when he started cutting himself as it was giving him relief. Patient has rosacea on his face for which he takes minocycline daily The patient currently denies any medical concerns , denies any fever, chills, cough, sore throat, chest pain , trouble breathing , nausea , vomiting, abd pain , changes in urinary or bowel habits. Patient denies any tobacco smoking and illicit drugs or alcohol review of systems Pertinent positives as noted in HPI. All other systems were reviewed and are negative on exam Constitutional: No acute distress Eyes: Anicteric sclerae, moist conjunctiva, Pupils equal round reactive to light Lungs: Clear to auscultation Clear to percussion Normal respiratory effort, no accessory muscle use Cardiovascular: Heart regular in rate and rhythm, No murmurs, gallops, or rubs No peripheral edema Abdominal: Soft Nontender, no guarding, rebound or rigidity Abdomen moving with respiration Normoactive bowel sounds Skin erythematous raised macular lesion on the face over the T-zone region no open wounds cuts or bleeding. There are multiple superficial horizontal cuts over bilateral forearm no surrounding induration or erythema the superficial lesions looks like they are healing well no active bleeding or oozing or drainage no tenderness to palpation Extremities: No clubbing Pedal pulses intact and symmetrical Radial pulses intact and symmetrical No calf tenderness Psychiatric: Alert and oriented to person, place and time Neuro Muscles Strength 5/5 in all 4 extremities Sensation to light touch grossly present throughout Past Medical History Past Medical History: GERD/Reflux, GI Bleed Additional Past Medical History / Comment(s): tremors, CROHN'S, KIDNEY STONES, IBS History of Any Multi-Drug Resistant Organisms: None Reported Past Surgical History: Tonsillectomy Additional Past Surgical History / Comment(s): wisdom teeth removed. Past Anesthesia/Blood Transfusion Reactions: No Reported Reaction Additional Past Anesthesia/Blood Transfusion Reaction / Comment(s): NEVER HAD BLOOD TRANSFUSION Smoking Status: Current every day smoker, Vaper - Past Family History Sister(s) Additional Family Medical History / Comment(s): He has one sister that is healthy. He also has a 4-year-old daughter that is healthy. Father Family Medical History: GERD/Reflux Additional Family Medical History / Comment(s): DAD HAS ALSO NEVER BEEN AN ALCOHOLIC-RARELY, RARELY DRINKS. Mother Family Medical History: Cancer Additional Family Medical History / Comment(s): MOM STATES SHE HAS NEVER BEEN AN ALCOHOLIC-MOM RARELY ,RARELY DRINKS. HX THYROID CANCER Medications and Allergies Home Medications Medication Instructions Recorded Confirmed Type Omeprazole [PriLOSEC] 20 mg PO AC-BRKFST 30 Days #30 cap 07/21/24 02/27/25 Rx ALPRAZolam [Xanax] 1 mg PO TID 01/17/25 02/27/25 History Docusate [Colace] 100 mg PO BID PRN 01/17/25 02/27/25 History lamoTRIgine [LaMICtal] 100 mg PO HS 01/17/25 02/27/25 History Atorvastatin [Lipitor] 20 mg PO HS 30 Days tab 01/23/25 02/27/25 Rx Nicotine 14Mg/24Hr Patch [Habitrol] 1 patch TRANSDERM DAILY #14 patch 01/23/25 02/27/25 Rx fluvoxaMINE [Luvox] 75 mg PO BID 30 Days tab 01/23/25 02/27/25 Rx Ziprasidone [Geodon] 40 mg PO DAILY@1800 02/27/25 02/27/25 History metroNIDAZOLE 1% GEL [Metrogel 1%] 1 applic TOPICAL BID 02/27/25 02/27/25 Histo ry Allergies Allergy/AdvReac Type Severity Reaction Status Date / Time aripiprazole [From Abilify] Allergy Unknown Agitation Verified 02/27/25 11:20 cariprazine [From Vraylar] Allergy Unknown Agitation Verified 02/27/25 11:20 citalopram [From Celexa] Allergy Unknown Agitation Verified 02/27/25 11:20 divalproex sodium Allergy Unknown Agitation Verified 02/27/25 11:20 [From Depakote] paroxetine [From Paxil] Allergy Unknown Agitation Verified 02/27/25 11:20 sertraline [From Zoloft] Allergy Unknown Agitation Verified 02/27/25 11:20 metoclopramide [From Reglan] Allergy Rash/Hives Verified 02/27/25 11:20 prochlorperazine Allergy Anaphylaxis Verified 02/27/25 11:20 [From Compazine] phenobarbital AdvReac Severe Rapid Verified 02/27/25 11:20 Heart Rate zolpidem tartrate AdvReac Unknown Altered Verified 02/27/25 11:20 [From Ambien] Mental Status atropine [From Lomotil] AdvReac Rapid Verified 02/27/25 11:20 Heart Rate dicyclomine [From Bentyl] AdvReac Rapid Verified 02/27/25 11:20 Heart Rate diphenhydramine AdvReac Hallucinati Verified 02/27/25 11:20 [From Benadryl] ons diphenoxylate [From Lomotil] AdvReac Rapid Verified 02/27/25 11:20 Heart Rate estropipate [From Ogen 2.5] AdvReac Twitching Verified 02/27/25 11:20 of Legs haloperidol [From Haldol] AdvReac Agitation Verified 02/27/25 11:20 ketorolac [From Toradol] AdvReac Unknown Verified 02/27/25 11:20 lorazepam [From Ativan] AdvReac Hallucinati Verified 02/27/25 11:20 ons methylprednisolone AdvReac Altered Verified 02/27/25 11:20 [From Solu-Medrol] Mental Status ondansetron [From Zofran] AdvReac Unknown Verified 02/27/25 11:20 Physical Exam Vitals: Vital Signs Temp Pulse Pulse Resp BP BP Pulse Ox 02/26/25 21:00 97.6 F 97 17 120/77 97 02/26/25 08:50 97.8 F 61 102/64 98 02/26/25 07:16 97.8 F 58 L 16 112/72 99 02/26/25 04:40 65 20 119/69 98 02/26/25 01:23 98.3 F 71 20 118/72 98 Intake and Output 02/26/25 02/26/25 02/27/25 14:59 22:59 06:59 Other: Weight 64.609 kg Cranial Nerve Examination - Cranial Nerves Cranial Nerve II- Optic: Intact Cranial Nerve III- Oculomotor: Intact Cranial Nerve IV- Trochlear: Intact Cranial Nerve V- Trigeminal: Intact Cranial Nerve - Abducens: Intact Cranial Nerve VII- Facial: Intact Cranial Nerve VIII- Auditory: Intact Cranial Nerve IX- Glossopharyngeal: Intact Cranial Nerve X- Vagus: Intact Cranial Nerve XI- Accessory: Intact Cranial Nerve XII- Hypoglossal: Intact Results CBC & Chem 7: 02/26/25 01:07 02/26/25 01:07 Labs: Abnormal Lab Results - Last 24 Hours (Table) 02/26/25 02/26/25 02/26/25 Range/Units 01:07 01:07 02:35 WBC 11.35 H (4.50-10.00) 10*3/uL Calcium 10.7 H (8.4-10.2) mg/dL Albumin 5.4 H (3.5-5.0) g/dL Urine Protein 1+ H (Negative) Urine Ketones 2+ H (Negative) Urine Blood Trace H (Negative) Urine RBC 10 H (0-5) /hpf Urine WBC 49 H (0-5) /hpf Hyaline Casts 135 H (0-2) /lpf Urine Mucus Many H (None) /hpf Urine Opiates Screen Detected H (NotDetected) U Benzodiazepines Scrn Detected H (NotDetected) U Marijuana (THC) Screen Detected H (NotDetected) Assessment and Plan Assessment: Acute psychosis/suicidal ideation Management per psych Pustular rosacea Continue with minocycline mild hypercalcemia 10.7 Repeat level if persistent consider further workup with iPTH , vit D levels Thank you for this consultation
[2025-02-28] MEDS: ALPRAZolam 0.5 MG TAB PO PRN (08:19)
[2025-02-28 11:14] LABS: African American GFR (CKD) >90 (>60 ml/min/1.73 sqM); Anion Gap 12 mmol/L; Blood Urea Nitrogen 11 mg/dL (9-20); Calcium 10.4 mg/dL (8.4-10.2); Carbon Dioxide 29 mmol/L (22-30); Chloride 101 mmol/L (98-107); Glucose 82 mg/dL (74-99); Non-African American GFR(CKD) >90 (>60 ml/min/1.73 sqM); Potassium 3.8 mmol/L (3.5-5.1); Sodium 142 mmol/L (137-145)
--- NOTE | 2025-02-28 11:37 | P.PN ---
Progress Note - Text Progress Note Date: 02/28/25 Interval history: Patient was seen today for psychiatric follow-up. agreeable to speak to typewriter ribbon winder in the office today. Patient was seen wandering the hallways, was in group earlier today. Patient states that he has been doing a bit better claims that his mood and anxiety have been proving. Claims that he has been using lotion marijuana on his hands and on his rash, his rash appears to be improving which is helping his self-confidence. He states that his daughter will be coming over to his house soon for her birthday and he is very excited about that as he has not seen her in a while. States that he is eating well and sleeping well at nighttime. Not reporting any side effects at this time. Not reporting any new rash. Denies any auditory or visual hallucinations denies any suicidal homicidal ideations intent or plan. MENTAL STATUS EXAM: General Appearance: Patient appears to be stated age is alert, directable, and attempts to cooperate. Patient appears to have improving hygiene and grooming. rosacea rash over his nose and cheeks, improving. Several cuts over his forearms, improving/healing. Behavior: Patient is seated without any agitated behavior. More cooperative today Speech: Patient's speech is fluent and nonpressured. Mood/Affect: Patient reports their mood is improving mildly, affect is congruent Suicidality/Homicidality: Patient denies having any homicidal ideation intent or plan. He denies any suicidal ideations, no specific plan or intent Perceptions: Patient denies any visual hallucinations and he reports auditory hallucinations Though content/process: There is no evidence of any delusional thought content and thought process is linear and goal-directed. Less focused on the stressors Memory and concentration: AOX3, grossly intact for the purposes of this session Judgment and insight: improving mildly. IMPRESSIONS: Adjustment disorder with depression and anxiety Psychosis, unspecified OCD Developmental delay Cannabis use disorder PLAN: -Patient is admitted under voluntary status to MHU for stabilization of psychiatric symptoms and safety. Patient has signed adult voluntary form and has signed medication consent and is placed in patient's chart. -Medications : Luvox 75 mg twice daily for mood/anxiety, Geodon 40 mg at 6 PM for mood stabilization/psychosis, Lamictal 100 mg daily for mood stabilization/depression. patient is not reporting any new rash at this time. -Check EKG today -xanax PRN for agitation/aggression -NRT -not needed as patient does not smoke -SW on board for discharge planning. Encourage patient to participate in groups to work on coping skills. likely discharge wednesday if patient is improving psychiatrically.
--- NOTE | 2025-03-01 11:23 | P.PN ---
Progress Note - Text Progress Note Date: 03/01/25 Interval history: Patient was seen today for psychiatric follow-up. Patient was wandering the h allways, he was agreeable to speak to typewriter mechanic in the office today. Patient states that he is doing the better today with regards to mood and anxiety. Claims that he is trying to go to groups and participate on the unit. Claims that he is looking forward to the weekend as he will be seeing his daughter and taking her to [place]. Claims that he has been using lotion marijuana on his hands and on his rash, his rash appears to be improving which is helping his self-confidence. he sates that he is eating well and sleeping well at nighttime. Not reporting any side effects at this time. Not reporting any new rash. Denies any auditory or visual hallucinations denies any suicidal homicidal ideations intent or plan. MENTAL STATUS EXAM: General Appearance: Patient appears to be stated age is alert, directable, and attempts to cooperate. Patient appears to have improving hygiene and grooming. rosacea rash over his nose and cheeks, improving. Several cuts over his forearms, improving/healing. Behavior: Patient is seated without any agitated behavior. More cooperative today Speech: Patient's speech is fluent and nonpressured. Mood/Affect: Patient reports their mood is improving mildly, affect is congruent Suicidality/Homicidality: Patient denies having any homicidal ideation intent or plan. He denies any suicidal ideations, no specific plan or intent Perceptions: Patient denies any visual hallucinations and he reports auditory hallucinations Though content/process: There is no evidence of any delusional thought content and thought process is linear and goal-directed. Less focused on the stressors, more future oriented. Memory and concentration: AOX3, grossly intact for the purposes of this session Judgment and insight: improving mildly IMPRESSIONS: Adjustment disorder with depression and anxiety Psychosis, unspecified OCD Developmental delay Cannabis use disorder PLAN: -Patient is admitted under voluntary status to [facility]HU for stabilization of psychiatric symptoms and safety. Patient has signed adult voluntary form and has signed medication consent and is placed in patient's chart. -Medications : Luvox 75 mg twice daily for mood/anxiety, Geodon 40 mg at 6 PM for mood stabilization/psychosis, Lamictal 100 mg daily for mood stabilization/depression. patient is not reporting any new rash at this time. -reviewed ekg -xanax PRN for agitation/aggression -NRT -not needed as patient does not smoke -SW on board for discharge planning. Encourage patient to participate in groups to work on coping skills. likely discharge tomorrow if patient is improving psychiatrically.
--- NOTE | 2025-03-02 10:58 | P.DS ---
Providers Date of admission: 02/26/25 06:44 Expected date of discharge: 03/02/25 Attending physician: Roge Martino MD Consults: 02/26/25 06:46 Consult Physician Routine Consulting Provider: Virgie Cope Consult Reason/Comments: h & p Do you want consulting provider notified?: Already Contacted Primary care physician: Sumeet Mejias - Discharge Diagnosis(es) (1) Unspecified psychosis Current Visit: Yes Status: Acute Priority: High (2) Adjustment disorder with mixed anxiety and depressed mood Current Visit: Yes Status: Acute Priority: High (3) Cannabis use disorder Current Visit: Yes Status: Acute Priority: Medium (4) Nicotine dependence Current Visit: Yes Status: Acute Priority: Low Hospital Course: Admission HPI: Admission note was completed by web content writer "Patient is a 34-year-old male, living with mom who is his guardian, on disability. Patient presented to the hospital last night, due to self-harm suicidal ideations and depression. Patient has been admitted several times in the mental health unit and seen several times in the ER for similar complaints. Patient was seen today patient always agreeable to speak to web content writer. He appeared to be anxious, overwhelmed. States that he had a "bad day" and states that he also had a "meltdown". States that he ended up cutting his forearm several times he has several superficial cuts over his arms. He states that he used a kitchen knife. Claims that he was in distress was crying. Claims that he has not seen his daughter in a very long time, is worried about her, also claimed that he had an "IBS attack". Claims that he is compliant with his medications. States that he developed a outbreak of his rosacea and states that he was scratching and now it is even more inflamed. He is endorsing anxiety, claims that he is calm down with regard to his mood however was feeling depressed. States that he is sleeping fairly appetite is fair. Patient denies any homicidal ideations intent or plan. At this time patient denies any visual hallucinations. Patient denies any flight of ideas racing thoughts and increased in goal directed behavior. Patient admits to using no substances. Urine drug screen is positive for benzodiazepines and marijuana." Hospital course: Upon admission to the unit patient was directable and agreeable to commence treatment and signed adult voluntary form. Patient was initially in distress anxious and psychotic however with time and treatment patient got along well with other patients on the unit and followed unit protocol. Patient was compliant with the medications and denied any side effects throughout hospital course. Patient was started on his home dose of Luvox 75 mg twice daily for mood/anxiety, Geodon 40 mg at 6 PM for mood stabilization/psychosis, Lamictal 100 mg daily for mood stabilization/depression. Patient was informed of the possibility of a Lamictal rash, did not report any new rashes and has been monitoring skin during hospitalization. Patient was started on minocycline as he previously did well with this for his rosacea which improved during hospitalization. Patient spoke of his stressors and engaged in therapy both group/activity therapy. Patient was also seen by medical team for history and physical exam. Throughout the course of the hospitalization patient gradually improved with regards to mood, anxiety, psychosis, sleep and returned back to their baseline level of functioning. On the day of discharge patient denied any suicidal or homicidal ideations intent or plan denied any auditory or visual hallucinations. Patient endorsed wanting to live for their health and family. The patient denied any access to guns or weapons. Patient denied any paranoia and did not endorse any delusions. Patient does have a significant history of substance abuse and was counseled on abstaining from all substances including alcohol and marijuana. Patient elected to do outpatient substance use treatment program through their outpatient provider. Patient was also counseled on the medications and need for regular compliance and was encouraged to follow-up with their outpatient appointment for mental health and also for primary care. Prior to discharge a family meeting will be arranged by psych social worker to answer any questions and ensure safety upon discharge incuding making sure that guns/weapons are either removed from the home or locked away. Mental status exam: General Appearance: Patient appears to be short in stature, has a rash over his nose and cheeks which is improving, stated age is alert, pleasant, and cooperative. Patient is in no acute distress and has improved hygiene and grooming Behavior: Patient is calmly seated without any agitated behavior. Speech: Patient's speech is fluent and nonpressured. Mood/Affect: Patient reports their mood is "good", affect is congruent and euthymic. Suicidality/Homicidality: Patient denies having any suicidal or homicidal ideation intent or plan. Perceptions: Patient denies any auditory or visual hallucinations. Though content/process: There is no evidence of any delusional thought content and thought process is linear and goal-directed. More future oriented Memory and concentration: AOX3, grossly intact for the purposes of this session. Can spell "WORLD" backwards correctly. Judgment and insight: improved with guarded prognosis Impression: Psychosis unspecified Adjustment disorder mixed depression and anxiety Cannabis use disorder Nicotine dependence Plan: -Continue with discharge today as patient has improved and stabilized psychiatrically and is not currently an imminent threat to themself and/or others. Patient will remain at chronically elevated risk for harm to self and/or others due to their impulsivity . -Continue medications: Luvox 75 mg twice daily for mood/anxiety, Geodon 40 mg at 6 PM for mood stabilization/psychosis, Lamictal 100 mg daily for mood stabilization/depression. -Patient was counseled on the need for medication compliance and appropriate follow-up at mental health and also primary care for medical issues. Patient verbalized understanding and agreed. -Social work to help coordinate patients discharge today. also to ensure safe home environment that guns/weapons are either removed from the home or locked away. Social work also to arrange for patients follow up appointments with [facility] for psychiatric care along with follow up with primary care provider. -Patient counseled on abstaining from recreational drugs and marijuana and alcohol. Was informed/educated on the adverse effects on their physical and mental health. Patient verbally agreed and understood. -Patient was instructed to return to the hospital or seek immediate medical care if their psychiatric or medical symptoms do worsen or reoccur. Allergies Allergy/AdvReac Type Severity Reaction Status Date / Time aripiprazole [From Abilify] Allergy Unknown Agitation Verified 02/27/25 11:20 cariprazine [From Vraylar] Allergy Unknown Agitation Verified 02/27/25 11:20 citalopram [From Celexa] Allergy Unknown Agitation Verified 02/27/25 11:20 divalproex sodium Allergy Unknown Agitation Verified 02/27/25 11:20 [From Depakote] paroxetine [From Paxil] Allergy Unknown Agitation Verified 02/27/25 11:20 sertraline [From Zoloft] Allergy Unknown Agitation Verified 02/27/25 11:20 metoclopramide [From Reglan] Allergy Rash/Hives Verified 02/27/25 11:20 prochlorperazine Allergy Anaphylaxis Verified 02/27/25 11:20 [From Compazine] phenobarbital AdvReac Severe Rapid Verified 02/27/25 11:20 Heart Rate zolpidem tartrate AdvReac Unknown Altered Verified 02/27/25 11:20 [From Ambien] Mental Status atropine [From Lomotil] AdvReac Rapid Verified 02/27/25 11:20 Heart Rate dicyclomine [From Bentyl] AdvReac Rapid Verified 02/27/25 11:20 Heart Rate diphenhydramine AdvReac Hallucinati Verified 02/27/25 11:20 [From Benadryl] ons diphenoxylate [From Lomotil] AdvReac Rapid Verified 02/27/25 11:20 Heart Rate estropipate [From Ogen 2.5] AdvReac Twitching Verified 02/27/25 11:20 of Legs haloperidol [From Haldol] AdvReac Agitation Verified 02/27/25 11:20 ketorolac [From Toradol] AdvReac Unknown Verified 02/27/25 11:20 lorazepam [From Ativan] AdvReac Hallucinati Verified 02/27/25 11:20 ons methylprednisolone AdvReac Altered Verified 02/27/25 11:20 [From Solu-Medrol] Mental Status ondansetron [From Zofran] AdvReac Unknown Verified 02/27/25 11:20 Laboratory Results WBC 11.35 10*3/uL (4.50-10.00) H 02/26/25 01:07 RBC 5.05 10*6/uL (4.40-5.60) 02/26/25 01:07 Hgb 15.7 g/dL (13.0-17.0) 02/26/25 01:07 Hct 45.8 % (39.6-50.0) 02/26/25 01:07 MCV 90.7 fL (80.0-97.0) 02/26/25 01:07 MCH 31.1 pg (27.0-32.0) 02/26/25 01:07 MCHC 34.3 g/dL (32.0-37.0) 02/26/25 01:07 Plt Count 181 10*3/uL (140-440) 02/26/25 01:07 MPV 10.0 fL (9.5-12.2) 02/26/25 01:07 Immature Gran % (Auto) 0.3 % 02/26/25 01:07 Neutrophils % 66.7 % 02/26/25 01:07 Lymphocytes % 26.2 % 02/26/25 01:07 Monocytes % 6.1 % 02/26/25 01:07 Eosinophils % 0.4 % 02/26/25 01:07 Basophils % 0.3 % 02/26/25 01:07 Immature Gran # 0.03 10*3/uL (0.00-0.04) 02/26/25 01:07 Neutrophils # 7.59 10*3/uL (1.80-7.70) 02/26/25 01:07 Lymphocytes # 2.97 10*3/uL (0.90-5.00) 02/26/25 01:07 Monocytes # 0.69 10*3/uL (0.20-1.00) 02/26/25 01:07 Eosinophils # 0.04 10*3/uL (0.04-0.35) 02/26/25 01:07 Basophils # 0.03 10*3/uL (0.00-0.10) 02/26/25 01:07 PT 11.1 sec (10.0-12.5) 02/26/25 01:07 INR 1.0 (<1.2) 02/26/25 01:07 APTT 24.8 sec (22.0-30.0) 02/26/25 01:07 Sodium 142 mmol/L (137-145) 02/28/25 09:48 Potassium 3.8 mmol/L (3.5-5.1) 02/28/25 09:48 Chloride 101 mmol/L (98-107) 02/28/25 09:48 Carbon Dioxide 29 mmol/L (22-30) 02/28/25 09:48 Anion Gap 12 mmol/L 02/28/25 09:48 BUN 11 mg/dL (9-20) 02/28/25 09:48 Creatinine 0.68 mg/dL (0.66-1.25) 02/28/25 09:48 Est GFR (CKD-EPI)AfAm >90 (>60 ml/min/1.73 sqM) 02/28/25 09:48 Est GFR (CKD-EPI)NonAf >90 (>60 ml/min/1.73 sqM) 02/28/25 09:48 Glucose 82 mg/dL (74-99) 02/28/25 09:48 Plasma Lactic Acid Socrates 1.3 mmol/L (0.7-2.0) 02/26/25 01:07 Calcium 10.4 mg/dL (8.4-10.2) H 02/28/25 09:48 Phosphorus 3.7 mg/dL (2.5-4.5) 02/26/25 01:07 Magnesium 2.0 mg/dL (1.6-2.3) 02/26/25 01:07 Total Bilirubin 1.3 mg/dL (0.2-1.3) 02/26/25 01:07 AST 23 U/L (17-59) 02/26/25 01:07 ALT 15 U/L (4-49) 02/26/25 01:07 Alkaline Phosphatase 92 U/L (38-126) 02/26/25 01:07 Troponin I <0.012 ng/mL (0.000-0.034) 02/26/25 01:07 Total Protein 8.0 g/dL (6.3-8.2) 02/26/25 01:07 Albumin 5.4 g/dL (3.5-5.0) H 02/26/25 01:07 Urine Color Yellow 02/26/25 02:35 Urine Appearance Cloudy (Clear) 02/26/25 02:35 Urine pH 6.5 (5.0-8.0) 02/26/25 02:35 Ur Specific Wilson 1.025 (1.001-1.035) 02/26/25 02:35 Urine Protein 1+ (Negative) H 02/26/25 02:35 Urine Glucose (UA) Negative (Negative) 02/26/25 02:35 Urine Ketones 2+ (Negative) H 02/26/25 02:35 Urine Blood Trace (Negative) H 02/26/25 02:35 Urine Nitrite Negative (Negative) 02/26/25 02:35 Urine Bilirubin Negative (Negative) 02/26/25 02:35 Urine Urobilinogen 4.0 mg/dL (<2.0) 02/26/25 02:35 Ur Leukocyte Esterase Negative (Negative) 02/26/25 02:35 Urine RBC 10 /hpf (0-5) H 02/26/25 02:35 Urine WBC 49 /hpf (0-5) H 02/26/25 02:35 Ur Squamous Epith Cells 2 /hpf (0-4) 02/26/25 02:35 Hyaline Casts 135 /lpf (0-2) H 02/26/25 02:35 Urine Mucus Many /hpf (None) H 02/26/25 02:35 Urine Opiates Screen Detected (NotDetected) H 02/26/25 02:35 Ur Oxycodone Screen Not Detected (NotDetected) 02/26/25 02:35 Urine Methadone Screen Not Detected (NotDetected) 02/26/25 02:35 Ur Barbiturates Screen Not Detected (NotDetected) 02/26/25 02:35 U Tricyclic Antidepress Not Detected (NotDetected) 02/26/25 02:35 Ur Phencyclidine Scrn Not Detected (NotDetected) 02/26/25 02:35 Ur Amphetamines Screen Not Detected (NotDetected) 02/26/25 02:35 U Methamphetamines Scrn Not Detected (NotDetected) 02/26/25 02:35 U Benzodiazepines Scrn Detected (NotDetected) H 02/26/25 02:35 Urine Cocaine Screen Not Detected (NotDetected) 02/26/25 02:35 U Marijuana (THC) Screen Detected (NotDetected) H 02/26/25 02:35 Serum Alcohol <10 mg/dL 02/26/25 01:07 Influenza Type A (PCR) Not Detected (Not Detectd) 02/26/25 05:58 Influenza Type B (PCR) Not Detected (Not Detectd) 02/26/25 05:58 RSV (PCR) Not Detected (Not Detectd) 02/26/25 05:58 SARS-CoV-2 (PCR) Not Detected (Not Detectd) 02/26/25 05:58 Vital Signs Temp 98.3 F 03/02/25 08:31 Pulse 69 03/02/25 08:31 Resp 16 03/02/25 08:31 BP 115/76 03/02/25 08:31 Pulse Ox 99 03/02/25 08:31 FiO2 Patient Condition at Discharge: Stable Plan - Discharge Summary Discharge Rx Participant: No New Discharge Prescriptions: New ALPRAZolam [Xanax] 1 mg PO BID PRN tab PRN Reason: Anxiety Ziprasidone [Geodon] 40 mg PO 1800 30 Days #30 cap Minocycline [Minocin] 50 mg PO DAILY 7 Days #7 cap Continue Atorvastatin [Lipitor] 20 mg PO HS 30 Days tab Nicotine 14Mg/24Hr Patch [Habitrol] 1 patch TRANSDERM DAILY 14 Days #14 patch lamoTRIgine [LaMICtal] 100 mg PO HS 30 Days #30 tab fluvoxaMINE [Luvox] 75 mg PO BID 30 Days #60 tab Omeprazole [PriLOSEC] 20 mg PO AC-BRKFST 30 Days #30 cap Docusate [Colace] 100 mg PO BID PRN PRN Reason: Constipation Discontinued ALPRAZolam [Xanax] 1 mg PO TID metroNIDAZOLE 1% GEL [Metrogel 1%] 1 applic TOPICAL BID Ziprasidone [Geodon] 40 mg PO DAILY@1800 Discharge Medication List Omeprazole [PriLOSEC] 20 mg PO AC-BRKFST 30 Days #30 cap 07/21/24 [Rx] Docusate [Colace] 100 mg PO BID PRN 01/17/25 [History] Atorvastatin [Lipitor] 20 mg PO HS 30 Days tab 01/23/25 [Rx] ALPRAZolam [Xanax] 1 mg PO BID PRN tab 03/02/25 [Rx] Minocycline [Minocin] 50 mg PO DAILY 7 Days #7 cap 03/02/25 [Rx] Nicotine 14Mg/24Hr Patch [Habitrol] 1 patch TRANSDERM DAILY 14 Days #14 patch 03/02/25 [Rx] Ziprasidone [Geodon] 40 mg PO 1800 30 Days #30 cap 03/02/25 [Rx] fluvoxaMINE [Luvox] 75 mg PO BID 30 Days #60 tab 03/02/25 [Rx] lamoTRIgine [LaMICtal] 100 mg PO HS 30 Days #30 tab 03/02/25 [Rx] Follow up Appointment(s)/Referral(s): Pan Lutz [Other] - As Needed (Bolivar Funes available to assist with any discharge needs) [facility] [Outside] - 03/06/25 1:00 pm ( 03/06/2025 1:00PM - 2:00PM BETZAIDA BOLANOS 03/15/2025 11:00AM - 12:00PM Sumeet Villa III, MD [Primary Care Provider] - 1-2 days Patient Instructions/Handouts: Depression (DC), Schizoaffective Disorder (DC), Obsessive Compulsive Disorder (DC), Anxiety (GEN) Activity/Diet/Wound Care/Special Instructions: Avoid the use of street drugs and alcohol. Take all medications as prescribed. When you are in need of refills on your medications, please contact your medical provider and/or outpatient psychiatrist/provider to have this done. Please go to your scheduled outpatient appointment for aftercare treatment. If symptoms return or become worse, call the crisis line at and/or go to the nearest emergency room for evaluation. National Suicide Hotline [address] [facility] confidentiality statement: "The information contained in this communication, including attachments, is confidential, may be privileged, and is intended only for the use of the named recipient(s). Unauthorized use, disclosure, forwarding or copying is strictly prohibited and may be unlawful. If you have received this communication in error, please notify me IMMEDIATELY at the phone number or pager listed above. Discharge Disposition: HOME SELF-CARE
[2025-03-04 00:11] VITALS: BP 115/76; PULSE 69; TEMP 98.3
== END 2025-03-02 12:53 | disposition home or self-care (01) | DRG 885 ==
LOC: EC 17:04 → 3MHU 02-26 06:44
PROVIDERS: ADMIT Psychiatry & Neurology Psychiatry; ATTEND Psychiatry & Neurology Psychiatry
DX: F25.9 Schizoaffective disorder, unspecified (principal); E83.52 Hypercalcemia; S51.812A Laceration without foreign body of left forearm, initial encounter; S51.811A Laceration without foreign body of right forearm, initial encounter; F31.9 Bipolar disorder, unspecified; F12.10 Cannabis abuse, uncomplicated; K50.90 Crohn's disease, unspecified, without complications; X78.1XXA Intentional self-harm by knife, initial encounter; F42.9 Obsessive-compulsive disorder, unspecified; F43.23 Adjustment disorder with mixed anxiety and depressed mood; F43.10 Post-traumatic stress disorder, unspecified; R62.50 Unspecified lack of expected normal physiological development in childhood; F90.9 Attention-deficit hyperactivity disorder, unspecified type; K21.9 Gastro-esophageal reflux disease without esophagitis; R25.1 Tremor, unspecified; L71.8 Other rosacea; F17.290 Nicotine dependence, other tobacco product, uncomplicated; Z79.899 Other long term (current) drug therapy; Z91.52 Personal history of nonsuicidal self-harm; Z88.8 Allergy status to other drugs, medicaments and biological substances
CPT/HCPCS: 36415; 74177; 80048; 80053; 80306; 80320; 81001; 82075; 83605; 83735; 84100; 84484; 85025; 85610; 85730; 87636; 96361; 96374; 96375; 99285

== ENCOUNTER 2025-03-12 18:19 | Emergency (ER) | payer MEDICARE ==
--- NOTE | 2025-03-12 19:13 | ED ---
Nausea/Vomiting/Diarrhea HPI - General Chief complaint: Nausea/Vomiting/Diarrhea Stated complaint: IBS Flare up Time Seen by Provider: 03/12/25 19:13 Source: patient, RN notes reviewed, old records reviewed Mode of arrival: ambulatory Limitations: no limitations - History of Present Illness Initial comments: This is a 34-year-old male well-known to this emergency department today. Patient coming in for severe anxiety feels like his palms are sweaty and is nauseous. Patient states he is not having no pain and feels well concern for sweaty palms and nausea MD complaint: nausea -: days(s) Radiation: none Severity: mild Severity scale (1-10): 2 Consistency: constant Improves with: vomiting Worsens with: vomiting Associated Symptoms: fever/chills, nausea/vomiting - Related Data Home Medications Medication Instructions Recorded Confirmed Docusate [Colace] 100 mg PO BID PRN 01/17/25 02/27/25 Previous Rx's Medication Instructions Recorded Omeprazole [PriLOSEC] 20 mg PO AC-BRKFST 30 Days #30 cap 07/21/24 Atorvastatin [Lipitor] 20 mg PO HS 30 Days tab 01/23/25 ALPRAZolam [Xanax] 1 mg PO BID PRN tab 03/02/25 Minocycline [Minocin] 50 mg PO DAILY 7 Days #7 cap 03/02/25 Nicotine 14Mg/24Hr Patch [Habitrol] 1 patch TRANSDERM DAILY 14 Days 03/02/25 #14 patch Ziprasidone [Geodon] 40 mg PO 1800 30 Days #30 cap 03/02/25 fluvoxaMINE [Luvox] 75 mg PO BID 30 Days #60 tab 03/02/25 lamoTRIgine [LaMICtal] 100 mg PO HS 30 Days #30 tab 03/02/25 Allergies Allergy/AdvReac Type Severity Reaction Status Date / Time aripiprazole [From Abilify] Allergy Unknown Agitation Verified 02/27/25 11:20 cariprazine [From Vraylar] Allergy Unknown Agitation Verified 02/27/25 11:20 citalopram [From Celexa] Allergy Unknown Agitation Verified 02/27/25 11:20 divalproex sodium Allergy Unknown Agitation Verified 02/27/25 11:20 [From Depakote] paroxetine [From Paxil] Allergy Unknown Agitation Verified 02/27/25 11:20 sertraline [From Zoloft] Allergy Unknown Agitation Verified 02/27/25 11:20 metoclopramide [From Reglan] Allergy Rash/Hives Verified 02/27/25 11:20 prochlorperazine Allergy Anaphylaxis Verified 02/27/25 11:20 [From Compazine] phenobarbital AdvReac Severe Rapid Verified 02/27/25 11:20 Heart Rate zolpidem tartrate AdvReac Unknown Altered Verified 02/27/25 11:20 [From Ambien] Mental Status atropine [From Lomotil] AdvReac Rapid Verified 02/27/25 11:20 Heart Rate dicyclomine [From Bentyl] AdvReac Rapid Verified 02/27/25 11:20 Heart Rate diphenhydramine AdvReac Hallucinati Verified 02/27/25 11:20 [From Benadryl] ons diphenoxylate [From Lomotil] AdvReac Rapid Verified 02/27/25 11:20 Heart Rate estropipate [From Ogen 2.5] AdvReac Twitching Verified 02/27/25 11:20 of Legs haloperidol [From Haldol] AdvReac Agitation Verified 02/27/25 11:20 ketorolac [From Toradol] AdvReac Unknown Verified 02/27/25 11:20 lorazepam [From Ativan] AdvReac Hallucinati Verified 02/27/25 11:20 ons methylprednisolone AdvReac Altered Verified 02/27/25 11:20 [From Solu-Medrol] Mental Status ondansetron [From Zofran] AdvReac Unknown Verified 02/27/25 11:20 Review of Systems ROS Statement: Those systems with pertinent positive or pertinent negative responses have been documented in the HPI. ROS Other: All systems not noted in ROS Statement are negative. Past Medical History Past Medical History: GERD/Reflux, GI Bleed Additional Past Medical History / Comment(s): tremors, CROHN'S, KIDNEY STONES, IBS History of Any Multi-Drug Resistant Organisms: None Reported Past Surgical History: Tonsillectomy Additional Past Surgical History / Comment(s): wisdom teeth removed. Past Anesthesia/Blood Transfusion Reactions: No Reported Reaction Additional Past Anesthesia/Blood Transfusion Reaction / Comment(s): NEVER HAD BLOOD TRANSFUSION Past Psychological History: ADD/ADHD, Anxiety, Bipolar, Depression, PTSD Smoking Status: Current every day smoker, Vaper - Past Family History Sister(s) Additional Family Medical History / Comment(s): He has one sister that is healthy. He also has a 4-year-old daughter that is healthy. Father Family Medical History: GERD/Reflux Additional Family Medical History / Comment(s): DAD HAS ALSO NEVER BEEN AN ALCOHOLIC-RARELY, RARELY DRINKS. Mother Family Medical History: Cancer Additional Family Medical History / Comment(s): MOM STATES SHE HAS NEVER BEEN AN ALCOHOLIC-MOM RARELY ,RARELY DRINKS. HX THYROID CANCER General Exam Limitations: no limitations General appearance: alert, in no apparent distress Head exam: Present: atraumatic, normocephalic, normal inspection Eye exam: Present: normal appearance, PERRL, EOMI. Absent: scleral icterus, conjunctival injection, periorbital swelling ENT exam: Present: normal exam, mucous membranes moist Neck exam: Present: normal inspection. Absent: tenderness, meningismus, lymphadenopathy Respiratory exam: Present: normal lung sounds bilaterally. Absent: respiratory distress, wheezes, rales, rhonchi, stridor Cardiovascular Exam: Present: regular rate, normal rhythm, normal heart sounds. Absent: systolic murmur, diastolic murmur, rubs, gallop, clicks GI/Abdominal exam: Present: soft, normal bowel sounds. Absent: distended, tenderness, guarding, rebound, rigid Extremities exam: Present: normal inspection, full ROM, normal capillary refill. Absent: tenderness, pedal edema, joint swelling, calf tenderness Back exam: Present: normal inspection Neurological exam: Present: alert, oriented X3, CN II-XII intact Psychiatric exam: Present: normal affect, normal mood Skin exam: Present: warm, dry, intact, normal color. Absent: rash Course Vital Signs 03/12/25 18:37 Temperature 100.1 F H Pulse Rate 93 Respiratory 20 Rate Blood Pressure 137/83 O2 Sat by Pulse 98 Oximetry - Reevaluation(s) Reevaluation #1: 03/12/25 20:07 Medical records reviewed Reevaluation #2: 03/12/25 20:33 Patient symptoms improved here in the ER Reevaluation #3: 03/12/25 20:33 Informed of results questions answered Reevaluation #4: Was pt. sent in by a medical professional or institution (, PA, CONFECTIONERY DROPS MACHINE OPERATOR, urgent care, hospital, or long-term...) When possible be specific @ -no Did you speak to anyone other than the patient for history (EMS, parent, family, police, friend...)? What history was obtained from this source @ -no Did you review nursing and triage notes (agree or disagree)? Why? @ -agree Are old charts reviewed (outside hosp., previous admission, EMS record, old EKG, old radiological studies, urgent care reports/EKG's, long-term records)? Report findings @ -yes Differential Diagnosis (chest pain, altered mental status, abdominal pain women, abdominal pain men, vaginal bleeding, weakness, fever, dyspnea, syncope, headache, dizziness, GI bleed, back pain, seizure, CVA, palpatations, mental health, musculoskeletal)? @ -prior EKG interpreted by me (3pts min.). @ -yes X-rays interpreted by me (1pt min.). @ -yes negative for acute disease CT interpreted by me (1pt min.). @ -no U/S interpreted by me (1pt. min.). @ -no What testing was considered but not performed or refused? (CT, X-rays, U/S, labs)? Why? @ -none What meds were considered but not given or refused? Why? @ -none Did you discuss the management of the patient with other professionals (professionals i.e. , PA, CONFECTIONERY DROPS MACHINE OPERATOR, lab, RT, psych nurse, director of social work, forensics analyst, teacher, retirement officer, case assistant)? Give summary @ -no Was smoking cessation discussed for >3mins.? @ -no Was critical care preformed (if so, how long)? @ -no Were there social determinants of health that impacted care today? How? (Homelessness, low income, unemployed, alcoholism, drug addiction, transportation, low edu. Level, literacy, decrease access to med. care, [facility], rehab)? @ -none Was there de-escalation of care discussed even if they declined (Discuss DNR or withdrawal of care, Hospice)? DNR status @ -no What co-morbidities impacted this encounter? (DM, HTN, Smoking, COPD, CAD, Cancer, CVA, ARF, Chemo, Hep., AIDS, mental health diagnosis, sleep apnea, morbid obesity)? @ -none Was patient admitted / discharged? Hospital course, mention meds given and route, prescriptions, significant lab abnormalities, going to OR and other pertinent info. @ - Undiagnosed new problem with uncertain prognosis? @ -no Drug Therapy requiring intensive monitoring for toxicity (Heparin, Nitro, Insulin, Cardizem)? @ -no Were any procedures done? @ -no Diagnosis/symptom? @ - Acute, or Chronic, or Acute on Chronic? @ -Acute Uncomplicated (without systemic symptoms) or Complicated (systemic symptoms)? @ -Complicated Side effects of treatment? @ -no Exacerbation, Progression, or Severe Exacerbation? @ -exacerbation Poses a threat to life or bodily function? How? (Chest pain, USA, [place], pneumonia, PE, COPD, DKA, ARF, appy, cholecystitis, CVA, Diverticulitis, Homicidal, Suicidal, threat to staff... and all critical care pts) @ -yes Reevaluation #5: Differential Fever: Pneumonia, viral URI, endocarditis, myocarditis, pericarditis, otitis, sinusitis, peritonsillar Abscess, retropharyngeal Abscess, epiglottitis, peritonitis, appendicitis, Rasheeda cystitis, diverticulitis, hepatitis, colitis, UTI, PID, TOA, pyelonephritis, prostatitis, epididymitis, meningitis, encephalitis, pulmonary embolism, CVA, thyroid storm, pancreatitis, adrenal crisis, cavernous sinus thrombosis, this is not meant to be an all-inclusive list. Medical Decision Making - Medical Decision Making 34 male with nausea vomiting fever. Patient symptoms improved here in the ER no acute cause of fever patient will continue outpatient Robaxin can be discharged home - Radiology Data Radiology results: report reviewed (Chest x-ray is negative for acute disease), image reviewed Disposition Clinical Impression: Weakness, Nausea & vomiting, Fever Disposition: HOME SELF-CARE Condition: Good Instructions (If sedation given, give patient instructions): Acute Nausea and Vomiting (ED) Is patient prescribed a controlled substance at d/c from ED?: No Referrals: Sumeet Mejias III, MD [Primary Care Provider] - 1-2 days Time of Disposition: 20:30
[2025-03-12] MEDS: diazePAM 5 MG TAB PO STA (20:03)
[2025-03-12] MEDS: droPERidol 2.5 MG/ML VIAL IM ONE (20:03)
[2025-03-12] MEDS: ACETAMINOPHEN TAB 500 MG TAB PO STA (20:03)
[2025-03-12] MEDS: hydrOXYzine HCL 25 MG TAB PO STA (20:13)
--- NOTE | 2025-03-12 20:15 | XR ---
EXAMINATION TYPE: XR chest 2V DATE OF EXAM: 03/12/2025 7:50 PM COMPARISON: Chest radiographs from 06/20/2021. CLINICAL INDICATION: Male, 34 years old with history of fever; [facility] TECHNIQUE: XR chest 2V Frontal and lateral views of the chest. FINDINGS: Lungs/Pleura: There is no evidence of pleural effusion, focal consolidation, or pneumothorax. Pulmonary vascularity: Unremarkable. Heart/mediastinum: Cardiomediastinal silhouette is unremarkable. Musculoskeletal: No acute osseous pathology. IMPRESSION: No acute cardiopulmonary disease/process. [facility], , 03/12/2025 8:12 PM
[2025-03-12 20:55] LABS: RSV Not Detected (Not Detectd)
[2025-03-12 21:10] VITALS: BP 134/81; PULSE 80; RESP 16; TEMP 99.5
== END 2025-03-12 21:10 | disposition home or self-care (01) ==
LOC: EC 18:19
DX: R53.1 Weakness (principal); R11.2 Nausea with vomiting, unspecified; R50.9 Fever, unspecified; F17.290 Nicotine dependence, other tobacco product, uncomplicated; Z88.6 Allergy status to analgesic agent; Z88.8 Allergy status to other drugs, medicaments and biological substances
CPT/HCPCS: 71046; 87636; 99284

== ENCOUNTER 2025-03-20 07:18 | Emergency (ER) | payer MEDICARE ==
--- NOTE | 2025-03-20 07:24 | ED ---
General Adult HPI <Jayla Schmid - Last Filed: 03/20/25 09:17> <Brando Bowden - Last Filed: 03/21/25 07:22> - General Stated complaint: IBS - History of Present Illness Initial comments: 34-year-old male with history of IBS well-known to us here for concerns of abdominal pain. He says he is having an IBS flareup and he is in pain to the point that his palms are sweaty. He has had intermittent small amounts of blood in his stool but is not new to him. He denied chest pain, palpitations, focal weakness, hematemesis, dysuria, hematuria, flank pain, recent trauma or fall. (Jayla Schmid) - Related Data Home Medications Medication Instructions Recorded Confirmed Docusate [Colace] 100 mg PO BID PRN 01/17/25 02/27/25 Previous Rx's Medication Instructions Recorded Omeprazole [PriLOSEC] 20 mg PO AC-BRKFST 30 Days #30 cap 07/21/24 Atorvastatin [Lipitor] 20 mg PO HS 30 Days tab 01/23/25 ALPRAZolam [Xanax] 1 mg PO BID PRN tab 03/02/25 Minocycline [Minocin] 50 mg PO DAILY 7 Days #7 cap 03/02/25 Nicotine 14Mg/24Hr Patch [Habitrol] 1 patch TRANSDERM DAILY 14 Days 03/02/25 #14 patch Ziprasidone [Geodon] 40 mg PO 1800 30 Days #30 cap 03/02/25 fluvoxaMINE [Luvox] 75 mg PO BID 30 Days #60 tab 03/02/25 lamoTRIgine [LaMICtal] 100 mg PO HS 30 Days #30 tab 03/02/25 Allergies Allergy/AdvReac Type Severity Reaction Status Date / Time aripiprazole [From Abilify] Allergy Unknown Agitation Verified 03/20/25 07:27 cariprazine [From Vraylar] Allergy Unknown Agitation Verified 03/20/25 07:27 citalopram [From Celexa] Allergy Unknown Agitation Verified 03/20/25 07:27 divalproex sodium Allergy Unknown Agitation Verified 03/20/25 07:27 [From Depakote] paroxetine [From Paxil] Allergy Unknown Agitation Verified 03/20/25 07:27 sertraline [From Zoloft] Allergy Unknown Agitation Verified 03/20/25 07:27 metoclopramide [From Reglan] Allergy Rash/Hives Verified 03/20/25 07:27 prochlorperazine Allergy Anaphylaxis Verified 03/20/25 07:27 [From Compazine] phenobarbital AdvReac Severe Rapid Verified 03/20/25 07:27 Heart Rate zolpidem tartrate AdvReac Unknown Altered Verified 03/20/25 07:27 [From Ambien] Mental Status atropine [From Lomotil] AdvReac Rapid Verified 03/20/25 07:27 Heart Rate dicyclomine [From Bentyl] AdvReac Rapid Verified 03/20/25 07:27 Heart Rate diphenhydramine AdvReac Hallucinati Verified 03/20/25 07:27 [From Benadryl] ons diphenoxylate [From Lomotil] AdvReac Rapid Verified 03/20/25 07:27 Heart Rate estropipate [From Ogen 2.5] AdvReac Twitching Verified 03/20/25 07:27 of Legs haloperidol [From Haldol] AdvReac Agitation Verified 03/20/25 07:27 ketorolac [From Toradol] AdvReac Unknown Verified 03/20/25 07:27 lorazepam [From Ativan] AdvReac Hallucinati Verified 03/20/25 07:27 ons methylprednisolone AdvReac Altered Verified 03/20/25 07:27 [From Solu-Medrol] Mental Status ondansetron [From Zofran] AdvReac Unknown Verified 03/20/25 07:27 Review of Systems ROS Other: All systems not noted in ROS Statement are negative. <Jayla Schmid - Last Filed: 03/20/25 09:17> ROS Other: All systems not noted in ROS Statement are negative. <Brando Bowden - Last Filed: 03/21/25 07:22> ROS Statement: Those systems with pertinent positive or pertinent negative responses have been documented in the HPI. Past Medical History Past Medical History: GERD/Reflux, GI Bleed Additional Past Medical History / Comment(s): tremors, CROHN'S, KIDNEY STONES, IBS History of Any Multi-Drug Resistant Organisms: None Reported Past Surgical History: Tonsillectomy Additional Past Surgical History / Comment(s): wisdom teeth removed. Past Anesthesia/Blood Transfusion Reactions: No Reported Reaction Additional Past Anesthesia/Blood Transfusion Reaction / Comment(s): NEVER HAD BLOOD TRANSFUSION Past Psychological History: ADD/ADHD, Anxiety, Bipolar, Depression, PTSD Smoking Status: Current every day smoker, Vaper - Past Family History Sister(s) Additional Family Medical History / Comment(s): He has one sister that is healthy. He also has a 4-year-old daughter that is healthy. Father Family Medical History: GERD/Reflux Additional Family Medical History / Comment(s): DAD HAS ALSO NEVER BEEN AN ALCOHOLIC-RARELY, RARELY DRINKS. Mother Family Medical History: Cancer Additional Family Medical History / Comment(s): MOM STATES SHE HAS NEVER BEEN AN ALCOHOLIC-MOM RARELY ,RARELY DRINKS. HX THYROID CANCER <Jayla Schmid - Last Filed: 03/20/25 09:17> General Exam <Jayla Schmid - Last Filed: 03/20/25 09:17> - General Exam Comments Initial Comments: Physical examination: Vital signs reviewed General: non toxic, no distress, appears at stated age Head: atraumatic, normocephalic, symmetric Mouth: no lip lesion, mucus membranes moist Cardiovascular: S1S2 reg, no murmur Lungs: CTA bilateral, no rhonchi, no rales, no accessory muscle use Abdominal: soft, nondistended, nontender to palpation, patient tightens muscles on palpation, no guarding Ext: muscle strength 5 out of 5 in all 4 extremities grossly, no gross muscle atrophy, no contractures, positive dorsalis pedis pulse bilateral, no edema Neuro: no gross focal neuro deficits Psych: Alert and oriented x3, appropriate affect and mood (Jayla Schmid) Course <Jayla Schmid - Last Filed: 03/20/25 09:17> Vital Signs 03/20/25 03/20/25 03/20/25 07:24 08:14 09:08 Temperature 98.2 F Pulse Rate 102 H 74 84 Respiratory 18 18 18 Rate Blood Pressure 111/65 120/80 104/66 O2 Sat by Pulse 99 100 98 Oximetry - Reevaluation(s) Reevaluation #1: 03/20/25 08:32 Patient reported pain is improved after taking Tylenol 3 p.o. (Jayla Schmid) Medical Decision Making <Jayla Schmid - Last Filed: 03/20/25 09:17> <Brando Bowden - Last Filed: 03/21/25 07:22> - Medical Decision Making Was pt. sent in by a medical professional or institution (LINO Patel, HPLC CHEMIST, urgent care, hospital, or senior care...) When possible be specific @ -[No] Did you speak to anyone other than the patient for history (EMS, parent, family, police, friend...)? What history was obtained from this source @ -[No] Did you review nursing and triage notes (agree or disagree)? Why? @ -[I reviewed and agree with nursing and triage notes] Were old charts reviewed (outside hosp., previous admission, EMS record, old EKG, old radiological studies, urgent care reports/EKG's, senior care records)? Report findings @ -[No old charts were reviewed] Differential Diagnosis? @ -[chest pain, altered mental status, abdominal pain women, abdominal pain men, vaginal bleeding, weakness, fever, dyspnea, syncope, headache, dizziness, GI bleed, back pain, seizure, CVA, palpatations, mental health, musculoskeletal] EKG interpreted by me (3pts min.). @ -[As above] X-rays interpreted by me (1pt min.). @ -[None done] CT interpreted by me (1pt min.). @ -[None done] U/S interpreted by me (1pt. min.). @ -[None done] What testing was considered but not performed or refused? (CT, X-rays, U/S, labs)? Why? @ -[None] What meds were considered but not given or refused? Why? @ -[None] Did you discuss the management of the patient with other professionals (professionals i.e. LINO Patel, HPLC CHEMIST, lab, RT, psych nurse, adoption social worker, net developer, teacher, recreation officer, case specialist)? Give summary @ -Dr. Nieto, supervising physician Was smoking cessation discussed for >3mins.? @ -[No] Was critical care preformed (if so, how long)? @ -[No] Were there social determinants of health that impacted care today? How? (Homelessness, low income, unemployed, alcoholism, drug addiction, transportation, low edu. Level, literacy, decrease access to med. care, shelter, rehab)? @ -[No] Was there de-escalation of care discussed even if they declined (Discuss DNR or withdrawal of care, Hospice)? DNR status @ -[No] What co-morbidities impacted this encounter? (DM, HTN, Smoking, COPD, CAD, Cancer, CVA, ARF, Chemo, Hep., AIDS, mental health diagnosis, sleep apnea, morbid obesity)? @ -[None] Was patient admitted / discharged? Hospital course, mention meds given and route, prescriptions, significant lab abnormalities, going to OR and other pertinent info. @ -Discharge. Patient was given 1 dose of Tylenol 3 p.o. and his symptoms improved. He has no new complaints or symptoms during his stay. He is cleared to discharge and was advised to continue fiber supplements and maintain psychiatric counseling. Undiagnosed new problem with uncertain prognosis? @ -[No] Drug Therapy requiring intensive monitoring for toxicity (Heparin, Nitro, Insulin, Cardizem)? @ -[No] Were any procedures done? @ -[No] Diagnosis/symptom? @ -[default] Acute, or Chronic, or Acute on Chronic? @ -[default] Uncomplicated (without systemic symptoms) or Complicated (systemic symptoms)? @ -[default] Side effects of treatment? @ -[No] Exacerbation, Progression, or Severe Exacerbation? @ -[No] Poses a threat to life or bodily function? How? (Chest pain, USA, [place], pneumonia, PE, COPD, DKA, ARF, appy, cholecystitis, CVA, Diverticulitis, Homicidal, Suicidal, threat to staff... and all critical care pts) @ -[No] (Jayla Schmid) I personally saw the patient and performed the critical portion of the service. I discussed the patient care with the resident. I directed management, care planning and final disposition of the patient. This includes, but not limited to, review of all lab work, radiological studies, EKG's, consultations, vital signs, and nursing notes. EKG interpreted by me (3pts min.) @As above X-Rays interpreted by me (1 pt min.) @None CT interpreted by me ( 1pt min.) @None U/S interpreted by me (1 pt min.) @None Critical care time of 0 minutes excluding separately billable procedures was spent in conjunction with critical care activities provided by the Resident and Attending simultaneously. I was present during no procedures for all critical portions of the procedure and as immediately available to furnish service during the entire procedure. (Brando Bowden) Disposition Is patient prescribed a controlled substance at d/c from ED?: No Time of Disposition: 08:55 <Jayla Schmid - Last Filed: 03/20/25 09:17> <Brando Bowden - Last Filed: 03/21/25 07:22> Clinical Impression: Acute abdomen Disposition: HOME SELF-CARE Condition: Good Referrals: Sumeet Mejias III, MD [Primary Care Provider] - 1-2 days
[2025-03-20 07:27] VITALS: RESP 18; TEMP 98.2
[2025-03-20] MEDS: Acetaminophen-Codeine 300-30mg TAB PO STA (08:18)
[2025-03-20 09:09] VITALS: BP 104/66; PULSE 84
== END 2025-03-20 09:09 | disposition home or self-care (01) ==
LOC: EC 07:18
DX: R10.9 Unspecified abdominal pain (principal); F17.290 Nicotine dependence, other tobacco product, uncomplicated; Z88.5 Allergy status to narcotic agent; Z88.8 Allergy status to other drugs, medicaments and biological substances
CPT/HCPCS: 99283

== ENCOUNTER 2025-03-21 13:15 | Emergency (ER) | payer MEDICARE ==
[2025-03-21 13:19] VITALS: TEMP 98.3
--- NOTE | 2025-03-21 13:40 | ED ---
Abdominal Pain HPI - General Chief Complaint: Abdominal Pain Stated Complaint: Abd pain Time Seen by Provider: 03/21/25 13:20 Source: patient, RN notes reviewed Mode of arrival: ambulatory - History of Present Illness Initial Comments: 34-year-old male well-known to the ER presenting for IBS flareup. Patient has chronic abdominal pain and patient has had over 40 visits this year for the same issue. Denies any new symptoms. States he has a scope scheduled with Dr. Caba for symptoms. He is requesting IV fluids and pain control today. - Related Data Home Medications Medication Instructions Recorded Confirmed Docusate [Colace] 100 mg PO BID PRN 01/17/25 02/27/25 Previous Rx's Medication Instructions Recorded Omeprazole [PriLOSEC] 20 mg PO AC-BRKFST 30 Days #30 cap 07/21/24 Atorvastatin [Lipitor] 20 mg PO HS 30 Days tab 01/23/25 ALPRAZolam [Xanax] 1 mg PO BID PRN tab 03/02/25 Minocycline [Minocin] 50 mg PO DAILY 7 Days #7 cap 03/02/25 Nicotine 14Mg/24Hr Patch [Habitrol] 1 patch TRANSDERM DAILY 14 Days 03/02/25 #14 patch Ziprasidone [Geodon] 40 mg PO 1800 30 Days #30 cap 03/02/25 fluvoxaMINE [Luvox] 75 mg PO BID 30 Days #60 tab 03/02/25 lamoTRIgine [LaMICtal] 100 mg PO HS 30 Days #30 tab 03/02/25 Allergies Allergy/AdvReac Type Severity Reaction Status Date / Time aripiprazole [From Abilify] Allergy Unknown Agitation Verified 03/21/25 13:18 cariprazine [From Vraylar] Allergy Unknown Agitation Verified 03/21/25 13:18 citalopram [From Celexa] Allergy Unknown Agitation Verified 03/21/25 13:18 divalproex sodium Allergy Unknown Agitation Verified 03/21/25 13:18 [From Depakote] paroxetine [From Paxil] Allergy Unknown Agitation Verified 03/21/25 13:18 sertraline [From Zoloft] Allergy Unknown Agitation Verified 03/21/25 13:18 metoclopramide [From Reglan] Allergy Rash/Hives Verified 03/21/25 13:18 prochlorperazine Allergy Anaphylaxis Verified 03/21/25 13:18 [From Compazine] phenobarbital AdvReac Severe Rapid Verified 03/21/25 13:18 Heart Rate zolpidem tartrate AdvReac Unknown Altered Verified 03/21/25 13:18 [From Ambien] Mental Status atropine [From Lomotil] AdvReac Rapid Verified 03/21/25 13:18 Heart Rate dicyclomine [From Bentyl] AdvReac Rapid Verified 03/21/25 13:18 Heart Rate diphenhydramine AdvReac Hallucinati Verified 03/21/25 13:18 [From Benadryl] ons diphenoxylate [From Lomotil] AdvReac Rapid Verified 03/21/25 13:18 Heart Rate estropipate [From Ogen 2.5] AdvReac Twitching Verified 03/21/25 13:18 of Legs haloperidol [From Haldol] AdvReac Agitation Verified 03/21/25 13:18 ketorolac [From Toradol] AdvReac Unknown Verified 03/21/25 13:18 lorazepam [From Ativan] AdvReac Hallucinati Verified 03/21/25 13:18 ons methylprednisolone AdvReac Altered Verified 03/21/25 13:18 [From Solu-Medrol] Mental Status ondansetron [From Zofran] AdvReac Unknown Verified 03/21/25 13:18 Review of Systems ROS Statement: Those systems with pertinent positive or pertinent negative responses have been documented in the HPI. ROS Other: All systems not noted in ROS Statement are negative. Past Medical History Past Medical History: GERD/Reflux, GI Bleed Additional Past Medical History / Comment(s): tremors, CROHN'S, KIDNEY STONES, IBS History of Any Multi-Drug Resistant Organisms: None Reported Past Surgical History: Tonsillectomy Additional Past Surgical History / Comment(s): wisdom teeth removed. Past Anesthesia/Blood Transfusion Reactions: No Reported Reaction Additional Past Anesthesia/Blood Transfusion Reaction / Comment(s): NEVER HAD BL OOD TRANSFUSION Past Psychological History: ADD/ADHD, Anxiety, Bipolar, Depression, PTSD Smoking Status: Current every day smoker, Vaper - Past Family History Sister(s) Additional Family Medical History / Comment(s): He has one sister that is healthy. He also has a 4-year-old daughter that is healthy. Father Family Medical History: GERD/Reflux Additional Family Medical History / Comment(s): DAD HAS ALSO NEVER BEEN AN ALCOHOLIC-RARELY, RARELY DRINKS. Mother Family Medical History: Cancer Additional Family Medical History / Comment(s): MOM STATES SHE HAS NEVER BEEN AN ALCOHOLIC-MOM RARELY ,RARELY DRINKS. HX THYROID CANCER General Exam General appearance: alert, in no apparent distress Head exam: Present: atraumatic, normocephalic, normal inspection Eye exam: Present: normal appearance, PERRL, EOMI. Absent: scleral icterus, conjunctival injection, periorbital swelling GI/Abdominal exam: Present: soft, normal bowel sounds. Absent: distended, tenderness, guarding, rebound, rigid Neurological exam: Present: alert, oriented X3 Psychiatric exam: Present: normal affect, normal mood Skin exam: Present: warm, dry, intact, normal color. Absent: rash Course Vital Signs 03/21/25 03/21/25 13:15 14:43 Temperature 98.3 F Pulse Rate 86 70 Respiratory 16 12 Rate Blood Pressure 113/73 115/64 O2 Sat by Pulse 99 98 Oximetry Medical Decision Making - Medical Decision Making Was pt. sent in by a medical professional or institution (, PA, PARK ATTENDANT, urgent care, hospital, or longterm...) When possible be specific @ -No Did you speak to anyone other than the patient for history (EMS, parent, family, police, friend...)? What history was obtained from this source @ -No Did you review nursing and triage notes (agree or disagree)? Why? @ -I reviewed and agree with nursing and triage notes Were old charts reviewed (outside hosp., previous admission, EMS record, old EKG, old radiological studies, urgent care reports/EKG's, longterm records)? Report findings @ -No old charts were reviewed Differential Diagnosis (chest pain, altered mental status, abdominal pain women, abdominal pain men, vaginal bleeding, weakness, fever, dyspnea, syncope, headache, dizziness, GI bleed, back pain, seizure, CVA, palpatations, mental health, musculoskeletal)? @ -Differential Abdominal Pain Women: Appendicitis, Cholecystitis, diverticulosis, ischemic bowel, pancreatitis, hepatitis, UTI, gastroenteritis, AAA, incarcerated hernia, bowel obstruction, constipation, inflammatory bowel, hepatitis, peptic ulcer disease, splenic infarction, perforated viscus, vulvitis, ovarian torsion, PID, kidney stone, placenta abruption, this is not meant to be an all-inclusive list EKG interpreted by me (3pts min.). @ -None X-rays interpreted by me (1pt min.). @ -None done CT interpreted by me (1pt min.). @ -None done U/S interpreted by me (1pt. min.). @ -None done What testing was considered but not performed or refused? (CT, X-rays, U/S, labs)? Why? @ -Lab work considered however given pain is chronic and no new symptoms lab work was deferred at this time What meds were considered but not given or refused? Why? @ -None Did you discuss the management of the patient with other professionals (professionals i.e. , PA, PARK ATTENDANT, lab, RT, psych nurse, social media job titles, arresting gear operator, t eacher, traffic maintenance officer, home health care case manager)? Give summary @ -No Was smoking cessation discussed for >3mins.? @ -No Was critical care preformed (if so, how long)? @ -No Were there social determinants of health that impacted care today? How? (Homelessness, low income, unemployed, alcoholism, drug addiction, transportation, low edu. Level, literacy, decrease access to med. care, longterm, rehab)? @ -No Was there de-escalation of care discussed even if they declined (Discuss DNR or withdrawal of care, Hospice)? DNR status @ -No What co-morbidities impacted this encounter? (DM, HTN, Smoking, COPD, CAD, Cance r, CVA, ARF, Chemo, Hep., AIDS, mental health diagnosis, sleep apnea, morbid obesity)? @ -None Was patient admitted / discharged? Hospital course, mention meds given and route, prescriptions, significant lab abnormalities, going to OR and other pertinent info. @ -Discharge. 34-year-old male well-known to the emergency department presenting for chronic abdominal pain. No new or acute symptoms. Abdomen soft nontender. Patient was provided with IV fluids and appropriate analgesics. Patient has close outpatient follow-up care. Appropriate return precautions and follow-up care discussed. Case was discussed with my ED attending Dr. Gupta Undiagnosed new problem with uncertain prognosis? @ -No Drug Therapy requiring intensive monitoring for toxicity (Heparin, Nitro, Insulin, Cardizem)? @ -No Were any procedures done? @ -No Diagnosis/symptom? @ -Abdominal pain Acute, or Chronic, or Acute on Chronic? @ -chronic Uncomplicated (without systemic symptoms) or Complicated (systemic symptoms)? @ -Uncomplicated Side effects of treatment? @ -No Exacerbation, Progression, or Severe Exacerbation? @ -No Poses a threat to life or bodily function? How? (Chest pain, USA, CT, pneumonia, PE, COPD, DKA, ARF, appy, cholecystitis, CVA, Diverticulitis, Homicidal, Suicidal, threat to staff... 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
[2025-03-21] MEDS: SODIUM CHLORIDE 0.9% 1,000 ML IV STA (13:47)
[2025-03-21] MEDS: MAG HYDROX/AL HYDROX/SIMETH 30 ML CUP PO STA (13:48)
[2025-03-21] MEDS: ACETAMINOPHEN TAB 500 MG TAB PO STA (13:49)
[2025-03-21 14:18] LABS: Glucose,Whole Blood 100 mg/dL (70-110)
[2025-03-21 14:58] VITALS: BP 103/71; PULSE 81; RESP 16
== END 2025-03-21 14:59 | disposition home or self-care (01) ==
LOC: EC 13:15
DX: G89.29 Other chronic pain (principal); R10.9 Unspecified abdominal pain; Z88.8 Allergy status to other drugs, medicaments and biological substances
CPT/HCPCS: 36415; 96360; 99284

== ENCOUNTER 2025-03-22 10:52 | Inpatient (IN) | payer MEDICARE ==
[2025-03-22 12:25] LABS: Barbiturate Screen,Urine Not Detected (NotDetected); Benzodiazepines Screen,Urine Detected (NotDetected); Opiate Screen,Urine Detected (NotDetected); Oxycodone Screen, Urine Not Detected (NotDetected); Phencyclidine Screen,Urine Not Detected (NotDetected); Tricyclic Antidepressant,Urine Not Detected (NotDetected); Urn Cannabinoid Scrn Detected (NotDetected)
--- NOTE | 2025-03-22 12:55 | ED ---
General Adult HPI - General Chief complaint: Psychiatric Symptoms Stated complaint: SI Time Seen by Provider: 03/22/25 11:45 Source: patient, RN notes reviewed, old records reviewed Mode of arrival: ambulatory Limitations: no limitations - History of Present Illness Initial comments: 34-year-old male who presents emergency department complaining of worsening anxiety and suicidal ideations. Does have a psychiatric history. States he is compliant with medications. Denies any other acute complaints at this time. Denies homicidal ideations, attempts, complaints. Denies any hallucinations. Presents for further evaluation. - Related Data Home Medications Medication Instructions Recorded Confirmed Docusate [Colace] 100 mg PO BID PRN 01/17/25 03/22/25 ALPRAZolam [Xanax] 1 mg PO TID 03/22/25 03/22/25 Omeprazole [PriLOSEC] 20 mg PO AC-BRKFST PRN 03/22/25 03/22/25 Ziprasidone [Geodon] 40 mg PO DAILY@1800 03/22/25 03/22/25 lamoTRIgine [LaMICtal] 100 mg PO DAILY 03/22/25 03/22/25 Previous Rx's Medication Instructions Recorded Atorvastatin [Lipitor] 20 mg PO HS 30 Days tab 01/23/25 Nicotine 14Mg/24Hr Patch [Habitrol] 1 patch TRANSDERM DAILY 14 Days 03/02/25 #14 patch fluvoxaMINE [Luvox] 75 mg PO BID 30 Days #60 tab 03/02/25 Allergies Allergy/AdvReac Type Severity Reaction Status Date / Time aripiprazole [From Abilify] Allergy Unknown Agitation Verified 03/22/25 11:57 cariprazine [From Vraylar] Allergy Unknown Agitation Verified 03/22/25 11:57 citalopram [From Celexa] Allergy Unknown Agitation Verified 03/22/25 11:57 divalproex sodium Allergy Unknown Agitation Verified 03/22/25 11:57 [From Depakote] paroxetine [From Paxil] Allergy Unknown Agitation Verified 03/22/25 11:57 sertraline [From Zoloft] Allergy Unknown Agitation Verified 03/22/25 11:57 metoclopramide [From Reglan] Allergy Rash/Hives Verified 03/22/25 11:57 prochlorperazine Allergy Anaphylaxis Verified 03/22/25 11:57 [From Compazine] phenobarbital AdvReac Severe Rapid Verified 03/22/25 11:57 Heart Rate zolpidem tartrate AdvReac Unknown Altered Verified 03/22/25 11:57 [From Ambien] Mental Status atropine [From Lomotil] AdvReac Rapid Verified 03/22/25 11:57 Heart Rate dicyclomine [From Bentyl] AdvReac Rapid Verified 03/22/25 11:57 Heart Rate diphenhydramine AdvReac Hallucinati Verified 03/22/25 11:57 [From Benadryl] ons diphenoxylate [From Lomotil] AdvReac Rapid Verified 03/22/25 11:57 Heart Rate estropipate [From Ogen 2.5] AdvReac Twitching Verified 03/22/25 11:57 of Legs haloperidol [From Haldol] AdvReac Agitation Verified 03/22/25 11:57 ketorolac [From Toradol] AdvReac Unknown Verified 03/22/25 11:57 lorazepam [From Ativan] AdvReac Hallucinati Verified 03/22/25 11:57 ons methylprednisolone AdvReac Altered Verified 03/22/25 11:57 [From Solu-Medrol] Mental Status ondansetron [From Zofran] AdvReac Unknown Verified 03/22/25 11:57 Review of Systems ROS Statement: Those systems with pertinent positive or pertinent negative responses have been documented in the HPI. Review of Systems: CONST: Denies fever EYES: Denies blurry vision ENT: Denies nasal congestion C/V: Denies Chest pain RESP: Denies shortness of breath GI: Denies abdominal pain : Denies dysuria SKIN: Denies rash. MSK: Denies joint pain. NEURO: Denies headache ROS Other: All systems not noted in ROS Statement are negative. Past Medical History Past Medical History: GERD/Reflux, GI Bleed Additional Past Medical History / Comment(s): tremors, CROHN'S, KIDNEY STONES, IBS History of Any Multi-Drug Resistant Organisms: None Reported Past Surgical History: Tonsillectomy Additional Past Surgical History / Comment(s): wisdom teeth removed. Past Anesthesia/Blood Transfusion Reactions: No Reported Reaction Additional Past Anesthesia/Blood Transfusion Reaction / Comment(s): NEVER HAD BLOOD TRANSFUSION Past Psychological History: ADD/ADHD, Anxiety, Bipolar, Depression, PTSD Smoking Status: Current every day smoker, Vaper - Past Family History Sister(s) Additional Family Medical History / Comment(s): He has one sister that is healthy. He also has a 4-year-old daughter that is healthy. Father Family Medical History: GERD/Reflux Additional Family Medical History / Comment(s): DAD HAS ALSO NEVER BEEN AN ALCOHOLIC-RARELY, RARELY DRINKS. Mother Family Medical History: Cancer Additional Family Medical History / Comment(s): MOM STATES SHE HAS NEVER BEEN AN ALCOHOLIC-MOM RARELY ,RARELY DRINKS. HX THYROID CANCER General Exam - General Exam Comments Initial Comments: General: Appears anxious. HEAD: Normal with no signs of head trauma. EYES: EOMI. ENT: Hearing grossly intact. RESPIRATORY: No respiratory distress. C/V: Regular rate and rhythm. ABD: Abdomen is nondistended. EXT: No obvious deformity. SKIN: No rashes or lesions observed on exposed skin. NEURO: Alert and oriented. Limitations: no limitations Course Vital Signs 03/22/25 11:06 Temperature 98 F Pulse Rate 95 Respiratory 20 Rate Blood Pressure 100/67 O2 Sat by Pulse 98 Oximetry Medical Decision Making - Medical Decision Making Was pt. sent in by a medical professional or institution (, PA, CONSTRUCTION JOB COST ESTIMATOR, urgent care, hospital, or [facility]...) When possible be specific @ -No Did you speak to anyone other than the patient for history (EMS, parent, family, police, friend...)? What history was obtained from this source @ -No Did you review nursing and triage notes (agree or disagree)? Why? @ -I reviewed and agree with nursing and triage notes Were old charts reviewed (outside hosp., previous admission, EMS record, old EKG, old radiological studies, urgent care reports/EKG's, [facility] records)? Report findings @ -No old charts were reviewed Differential Diagnosis (chest pain, altered mental status, abdominal pain women, abdominal pain men, vaginal bleeding, weakness, fever, dyspnea, syncope, headache, dizziness, GI bleed, back pain, seizure, CVA, palpatations, mental health, musculoskeletal)? @ -Differential Mental Health Depression, anxiety, bipolar, psychosis, schizophrenia, borderline personality, situational depression, adjustment disorder, behavioral disorder, brain tumor, malingering, substance abuse, encephalopathy, medication reaction, dementia, hypothyroidism, degenerative neurologic disorder, lupus.... This is not meant to be all-inclusive list EKG interpreted by me (3pts min.). @ -None done X-rays interpreted by me (1pt min.). @ -None done CT interpreted by me (1pt min.). @ -None done U/S interpreted by me (1pt. min.). @ -None done What testing was considered but not performed or refused? (CT, X-rays, U/S, labs)? Why? @ -None What meds were considered but not given or refused? Why? @ -None Did you discuss the management of the patient with other professionals (professionals i.e. Dr., PA, CONSTRUCTION JOB COST ESTIMATOR, lab, RT, psych nurse, pediatric social worker, customer marketing intern, teacher, preventive medicine officer, field case manager)? Give summary @ -No Was smoking cessation discussed for >3mins.? @ -No Was critical care preformed (if so, how long)? @ -No Were there social determinants of health that impacted care today? How? (Homelessness, low income, unemployed, alcoholism, drug addiction, transportation, low edu. Level, literacy, decrease access to med. care, alf, rehab)? @ -No Was there de-escalation of care discussed even if they declined (Discuss DNR or withdrawal of care, Hospice)? DNR status @ -No What co-morbidities impacted this encounter? (DM, HTN, Smoking, COPD, CAD, Cancer, CVA, ARF, Chemo, Hep., AIDS, mental health diagnosis, sleep apnea, morbid obesity)? @ -Psychiatric illness Was patient admitted / discharged? Hospital course, mention meds given and route, prescriptions, significant lab abnormalities, going to OR and other pertinent info. @ -Patient presents emergency department complaining of suicidal ideation and worsening anxiety. Is asking to speak with psychiatry. Vital signs are within acceptable limits. BAT is 0. UDS is pending. Sitter ordered. Suicide precautions ordered. At this time, patient is medically cleared for evaluation by psychiatry. Disposition pending psychiatric evaluation. EPS notified of the consult. EPS Kasandra evaluated patient determined that patient does meet inpatient psychiatric criteria. Will be admitted to inpatient psychiatry. Undiagnosed new problem with uncertain prognosis? @ -No Drug Therapy requiring intensive monitoring for toxicity (Heparin, Nitro, Insulin, Cardizem)? @ -No Were any procedures done? @ -No Diagnosis/symptom? @ -Encounter for psychiatric evaluation. Anxiety. Suicidal ideation. Acute, or Chronic, or Acute on Chronic? @ -Acute Uncomplicated (without systemic symptoms) or Complicated (systemic symptoms)? @ -Complicated Side effects of treatment? @ -None Exacerbation, Progression, or Severe Exacerbation] @ -No Poses a threat to life or bodily function? @ -Yes - Lab Data Lab Results 03/22/25 03/22/25 Range/Units 11:36 11:36 Urine Opiates Screen Detected H (NotDetected) Ur Oxycodone Screen Not Detected (NotDetected) Urine Methadone Screen Not Detected (NotDetected) Ur Barbiturates Screen Not Detected (NotDetected) U Tricyclic Antidepress Not Detected (NotDetected) Ur Phencyclidine Scrn Not Detected (NotDetected) Ur Amphetamines Screen Not Detected (NotDetected) U Methamphetamines Scrn Not Detected (NotDetected) U Benzodiazepines Scrn Detected H (NotDetected) Urine Cocaine Screen Not Detected (NotDetected) U Marijuana (THC) Screen Detected H (NotDetected) SARS-CoV-2 (PCR) Not Detected (Not Detectd) Disposition Clinical Impression: Encounter for psychiatric assessment, Anxiety, Suicide ideation Disposition: TRANSFER TO PSYCH HOSP/UNIT Condition: Stable
[2025-03-22] MEDS ORDERED: MAG HYDROX/AL HYDROX/SIMETH 355 ML BOTTLE PO PRN (13:10)
[2025-03-22] MEDS ORDERED: ACETAMINOPHEN TAB 325 MG TAB PO PRN (13:10)
[2025-03-22] MEDS ORDERED: MAGNESIUM HYDROXIDE 2,400 MG/30 ML CUP PO PRN (13:10)
[2025-03-22] MEDS ORDERED: PANTOPRAZOLE 40 MG TABLET PO PRN (13:12)
[2025-03-22] MEDS ORDERED: OLANZapine 5 MG TAB PO PRN (13:14)
[2025-03-22] MEDS ORDERED: OLANZapine 10 MG VIAL IM PRN (13:14)
[2025-03-22] MEDS: NICOTINE 14MG/24HR PATCH TRANSDERM SCH (15:36)
[2025-03-22] MEDS: ZIPRASIDONE 40 MG CAP PO SCH (17:40)
--- NOTE | 2025-03-22 20:15 | P.CONS ---
History of Present Illness - Reason for Consult Consult date: 03/22/25 medical comanagmenet - Chief Complaint suicidal ideation - History of Present Illness Mook is a 34-year-old male with past cannabis use disorder and rosecea He presents to the hospital today due to suicidal ideation. He reports that he felt like he was having a mental breakdown. He denies any plan. He reports that he does use cannabis. His urine drug is positive for opioids and benzodiaz epines however he reports it is from the ER administration. He reports his rosacea is relatively stable at this time. He denies any other recreational drug use besides cannabis. Denies any alcohol use. He reports that he recently ceased tobacco use Review of Systems ROS negative except for HPI Past Medical History Past Medical History: GERD/Reflux, GI Bleed Additional Past Medical History / Comment(s): tremors, CROHN'S, KIDNEY STONES, IBS History of Any Multi-Drug Resistant Organisms: None Reported Past Surgical History: Tonsillectomy Additional Past Surgical History / Comment(s): wisdom teeth removed. Past Anesthesia/Blood Transfusion Reactions: No Reported Reaction Additional Past Anesthesia/Blood Transfusion Reaction / Comm: NEVER HAD BLOOD TRANSFUSION Past Psychological History: ADD/ADHD, Anxiety, Bipolar, Depression, PTSD Additional Psychological History / Comment(s): OCD Smoking Status: Smoker, current status unknown, Vaper Past Alcohol Use History: None Reported Additional Past Alcohol Use History / Comment(s): PAST HX OF ALCOHOL ABUSE. Past Drug Use History: Marijuana - Past Family History Sister(s) Additional Family Medical History / Comment(s): He has one sister that is healthy. He also has a 4-year-old daughter that is healthy. Father Family Medical History: GERD/Reflux Additional Family Medical History / Comment(s): DAD HAS ALSO NEVER BEEN AN ALCOHOLIC-RARELY, RARELY DRINKS. Mother Family Medical History: Cancer Additional Family Medical History / Comment(s): MOM STATES SHE HAS NEVER BEEN AN ALCOHOLIC-MOM RARELY ,RARELY DRINKS. HX THYROID CANCER Medications and Allergies Home Medications Medication Instructions Recorded Confirmed Type Docusate [Colace] 100 mg PO BID PRN 01/17/25 03/22/25 History Atorvastatin [Lipitor] 20 mg PO HS 30 Days tab 01/23/25 03/22/25 Rx Nicotine 14Mg/24Hr Patch [Habitrol] 1 patch TRANSDERM DAILY 14 Days 03/02/25 03/22/25 Rx #14 patch fluvoxaMINE [Luvox] 75 mg PO BID 30 Days #60 tab 03/02/25 03/22/25 Rx ALPRAZolam [Xanax] 1 mg PO TID 03/22/25 03/22/25 History Omeprazole [PriLOSEC] 20 mg PO AC-BRKFST PRN 03/22/25 03/22/25 History Ziprasidone [Geodon] 40 mg PO DAILY@1800 03/22/25 03/22/25 History lamoTRIgine [LaMICtal] 100 mg PO DAILY 03/22/25 03/22/25 History Allergies Allergy/AdvReac Type Severity Reaction Status Date / Time aripiprazole [From Abilify] Allergy Unknown Agitation Verified 03/22/25 11:57 cariprazine [From Vraylar] Allergy Unknown Agitation Verified 03/22/25 11:57 citalopram [From Celexa] Allergy Unknown Agitation Verified 03/22/25 11:57 divalproex sodium Allergy Unknown Agitation Verified 03/22/25 11:57 [From Depakote] paroxetine [From Paxil] Allergy Unknown Agitation Verified 03/22/25 11:57 sertraline [From Zoloft] Allergy Unknown Agitation Verified 03/22/25 11:57 metoclopramide [From Reglan] Allergy Rash/Hives Verified 03/22/25 11:57 prochlorperazine Allergy Anaphylaxis Verified 03/22/25 11:57 [From Compazine] phenobarbital AdvReac Severe Rapid Verified 03/22/25 11:57 Heart Rate zolpidem tartrate AdvReac Unknown Altered Verified 03/22/25 11:57 [From Ambien] Mental Status atropine [From Lomotil] AdvReac Rapid Verified 03/22/25 11:57 Heart Rate dicyclomine [From Bentyl] AdvReac Rapid Verified 03/22/25 11:57 Heart Rate diphenhydramine AdvReac Hallucinati Verified 03/22/25 11:57 [From Benadryl] ons diphenoxylate [From Lomotil] AdvReac Rapid Verified 03/22/25 11:57 Heart Rate estropipate [From Ogen 2.5] AdvReac Twitching Verified 03/22/25 11:57 of Legs haloperidol [From Haldol] AdvReac Agitation Verified 03/22/25 11:57 ketorolac [From Toradol] AdvReac Unknown Verified 03/22/25 11:57 lorazepam [From Ativan] AdvReac Hallucinati Verified 03/22/25 11:57 ons methylprednisolone AdvReac Altered Verified 03/22/25 11:57 [From Solu-Medrol] Mental Status ondansetron [From Zofran] AdvReac Unknown Verified 03/22/25 11:57 Physical Exam Vitals: Vital Signs Temp Pulse Pulse Resp BP BP Pulse Ox 03/22/25 14:03 97.8 F 67 17 99/61 98 03/22/25 13:25 98.2 F 70 18 109/68 100 03/22/25 11:06 98 F 95 20 100/67 98 Intake and Output 03/22/25 03/22/25 03/22/25 06:59 14:59 22:59 Other: Weight 63.078 kg General: non toxic, no distress Derm: warm, dry Head: atraumatic, normocephalic, symmetric Eyes: EOMI, no lid lag, anicteric sclera, pupils equal round reactive to light ENT: Nose and ears atraumatic, no thrush, no pharyngeal erythema Neck: No thyromegaly, no cervical lymphadenopathy, trachea midline, supple Mouth: no lip lesion, mucus membranes moist Cardiovascular: S1S2 reg, no murmur, Lungs: clear to ascultation bilateral, no ronchi, no rales, no wheeze, no accessory muscle use Abdominal: soft, nontender to palpation, no guarding, no appreciable organomegaly, normal bowel sounds Ext: no gross muscle atrophy Neuro: calm and copoeatrive Psych: Alert, oriented, appropriate affect Results Labs: Abnormal Lab Results - Last 24 Hours (Table) 03/22/25 Range/Units 11:36 Urine Opiates Screen Detected H (NotDetected) U Benzodiazepines Scrn Detected H (NotDetected) U Marijuana (THC) Screen Detected H (NotDetected) Assessment and Plan Assessment: #) Acute psychosis with SI, [facility]) history of tobacco use, continue nicotine patch for cessation #) rosecea, appears stable. monitor skin #) Cannabis use, recommend cessation. thank you for allowing us to take care of this patient. please do not hesistate to contact us if any further questions arise.
[2025-03-22] MEDS: ALPRAZolam 0.5 MG TAB PO PRN (20:29)
[2025-03-22] MEDS: ATORVASTATIN 20 MG TAB PO SCH (20:29)
[2025-03-23] MEDS: lamoTRIgine 100 MG TAB PO SCH (08:11)
[2025-03-23 08:19] LABS: Basophils # (A) 0.04 10*3/uL (0.00-0.10); Basophils % (A) 0.5 %; Eosinophils # (A) 0.17 10*3/uL (0.04-0.35); Eosinophils % (A) 2.1 %; HCT 45.5 % (39.6-50.0); HGB 15.3 g/dL (13.0-17.0); Lymphocytes # (A) 2.61 10*3/uL (0.90-5.00); Lymphocytes % (A) 32.3 %; MCH 31.6 pg (27.0-32.0); MCHC 33.6 g/dL (32.0-37.0); MCV 94.0 fL (80.0-97.0); Monocytes # (A) 0.60 10*3/uL (0.20-1.00); Monocytes % (A) 7.4 %; Neutrophils # (A) 4.61 10*3/uL (1.80-7.70); Neutrophils % (A) 57.2 %; Platelet Count 257 10*3/uL (140-440); RBC 4.84 10*6/uL (4.40-5.60); RDW 14.1 % (11.5-14.5); WBC 8.07 10*3/uL (4.50-10.00)
[2025-03-23 08:37] LABS: ALT 20 U/L (4-49); AST 26 U/L (17-59); African American GFR (CKD) >90 (>60 ml/min/1.73 sqM); Albumin 5.0 g/dL (3.5-5.0); Alkaline Phosphatase 74 U/L (38-126); Anion Gap 14 mmol/L; Blood Urea Nitrogen 22 mg/dL (9-20); Calcium 10.0 mg/dL (8.4-10.2); Carbon Dioxide 24 mmol/L (22-30); Chloride 105 mmol/L (98-107); Glucose 95 mg/dL (74-99); Non-African American GFR(CKD) >90 (>60 ml/min/1.73 sqM); Potassium 4.5 mmol/L (3.5-5.1); Sodium 143 mmol/L (137-145); Total Protein 7.1 g/dL (6.3-8.2)
[2025-03-23] MEDS ORDERED: NICOTINE 14MG/24HR PATCH TRANSDERM SCH (09:00)
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
[2025-03-23 16:05] LABS: Cholesterol 171.00 mg/dL (0.00-200.00); HDL Cholesterol 58.10 mg/dL (40.00-60.00); LDL Cholesterol,Calculated 86.5 mg/dL (0.0-131.0); Triglycerides 132.00 mg/dL (0.00-149.00); VLDL Calculation 26.40 mg/dL (5.00-40.00)
--- NOTE | 2025-03-24 14:35 | P.PN ---
Progress Note - Text Progress Note Date: 03/24/25 Dictation was produced using [employer] dictation software. Please excuse any grammatical, word or spelling errors. Interval history: Patient was seen in the hallway and was directable and agreeable to speak with the scenario writer in the office for psychiatric follow-up. The patient states that he is feeling "great, joyful, well rested, and thankful." States that depression and anxiety are at the low to moderated side, he states that he has been using his coping skills. He denied any current SI/HI or self harm, states that he had suicidal prior to coming to the hospital. He denied any current AVH. He admitted to good sleep, it is reported that he slept 5 hours last night, states that his appetite is good, and reported that he has IBS and he has been going to the ED many times for that. He has been compliant with his medications, denied any current side effects. Denied any stiffness, rigidity, abnormal movement, or drooling. Reported that he feels his medication are working very well, education was provided into Xanax and side effects of benzodiazepine, patient was fixated on his medication. He has no other concern at this time. MENTAL STATUS EXAM: General Appearance: Patient appears to be stated age is alert, directable, and attempts to cooperate. Patient appears to have fair hygiene and grooming. Behavior: Patient is seated without any agitated behavior. Speech: Patient's speech is fluent and nonpressured. Mood/Affect: Patient reports their mood is "great", affect is congruent and pleasant and elevated at time Suicidality/Homicidality: Patient denies having any homicidal ideation intent or plan. Denies any suicidal ideations intent or plan Perceptions: Patient denies any visual hallucinations and denies any auditory hallucinations Though content/process: There is no evidence of any delusional thought content and thought process is linear and goal-directed. Memory and concentration: AOX3, grossly intact for the purposes of this session. Can spell "WORLD" backwards Judgment and insight: Poor IMPRESSIONS: Adjustment disorder with depressed and anxious mood OCD Developmental delay Cannabis use disorder Nicotine dependence Assessment/Plan: Continue with current diagnosis. Patient continues to meet criteria for inpatient psychiatric admission for symptom stabilization and safety. Patient will be maintained on current psychotropic medication regimen which include Luvox 100 mg p.o. twice daily, Lamictal 100 mg p.o. daily, Geodon 40 mg p.o. daily, and Xanax 0.5 3 times daily as needed, psychoeducation was provided, risk, benefit and side effect discussed, brief psychotherapy was provided, patient was educated on side effect of benzodiazepine. Monitor for medication compliance and for any psychotropic medication side effects. Will continue to monitor ongoing response to treatment. Encouraged participation in milieu.
[2025-03-25 09:03] LABS: Bilirubin,Urine Negative (Negative); Blood,Urine Negative (Negative); Color,Urine Light Yellow; Glucose,Urine (UA) Negative (Negative); Ketones,Urine Negative (Negative); Leukocyte Esterase,Urine Trace (Negative); Mucus,Urine Rare /hpf; Nitrite,Urine Negative (Negative); PH, Urine 6.0 (5.0-8.0); Protein,Urine Negative (Negative); RBC,Urine <1 /hpf (0-5); Specific Gravity,Urine 1.022 (1.001-1.035); Urobilinogen,Urine <2.0 mg/dL (<2.0); WBC,Urine 2 /hpf (0-5)
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
[2025-03-25 21:27] VITALS: TEMP 97.8
[2025-03-26 10:24] VITALS: BP 106/69; PULSE 71; RESP 16
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
== END 2025-03-26 12:53 | disposition home or self-care (01) | DRG 885 ==
LOC: EC 10:52 → 3MHU 13:09
PROVIDERS: ADMIT Psychiatry & Neurology Psychiatry; ATTEND Psychiatry & Neurology Psychiatry
DX: F23 Brief psychotic disorder (principal); R45.851 Suicidal ideations; F31.9 Bipolar disorder, unspecified; F12.90 Cannabis use, unspecified, uncomplicated; F17.290 Nicotine dependence, other tobacco product, uncomplicated; F42.9 Obsessive-compulsive disorder, unspecified; R62.50 Unspecified lack of expected normal physiological development in childhood; F43.23 Adjustment disorder with mixed anxiety and depressed mood; L71.9 Rosacea, unspecified; K58.9 Irritable bowel syndrome, unspecified; F43.10 Post-traumatic stress disorder, unspecified; Z79.899 Other long term (current) drug therapy; Z71.51 Drug abuse counseling and surveillance of drug abuser; Z81.8 Family history of other mental and behavioral disorders; Z91.52 Personal history of nonsuicidal self-harm
CPT/HCPCS: 80053; 80061; 80175; 80306; 81001; 82075; 83036; 84443; 85025; 87635

== ENCOUNTER 2025-04-03 09:38 | Emergency (ER) | payer MEDICARE ==
[2025-04-03 09:52] VITALS: TEMP 98
--- NOTE | 2025-04-03 10:41 | ED ---
General Adult HPI - General Chief complaint: Psychiatric Symptoms Stated complaint: Anxiety, suicidal ideations Time Seen by Provider: 04/03/25 09:40 Source: patient Mode of arrival: ambulatory Limitations: no limitations - History of Present Illness Initial comments: Dictation was produced using [employer] dictation software. please excuse any grammatical, word or spelling errors. Chief Complaint: 34-year-old male with symptoms of benzodiazepine withdrawal History of Present Illness: Patient 34-year-old male requesting treatment for benzodiazepine withdrawal. Patient states that he is motivated to quit benzodiazepines. He has been dependent on benzodiazepines for several years. Patient does report feeling little helpless. Patient at the bedside feels depressed. Denies suicidality. The ROS documented in this emergency department record has been reviewed and confirmed by me. Those systems with pertinent positive or negative responses moran ve been documented in the HPI. All other systems are other negative and/or noncontributory. - Related Data Home Medications Medication Instructions Recorded Confirmed ALPRAZolam [Xanax] 1 mg PO TID 03/22/25 03/22/25 Previous Rx's Medication Instructions Recorded Nicotine 14Mg/24Hr Patch [Habitrol] 1 patch TRANSDERM DAILY 14 Days 03/02/25 #14 patch Atorvastatin [Lipitor] 20 mg PO HS 30 Days tab 03/26/25 Nicotine 14Mg/24Hr Patch [Habitrol] 1 patch TRANSDERM DAILY patch 03/26/25 Ziprasidone [Geodon] 40 mg PO DAILY@1800 30 Days #30 cap 03/26/25 fluvoxaMINE [Luvox] 100 mg PO BID 30 Days #120 tab 03/26/25 lamoTRIgine [LaMICtal] 100 mg PO DAILY 30 Days #30 tab 03/26/25 Allergies Allergy/AdvReac Type Severity Reaction Status Date / Time aripiprazole [From Abilify] Allergy Unknown Agitation Verified 03/22/25 11:57 cariprazine [From Vraylar] Allergy Unknown Agitation Verified 03/22/25 11:57 citalopram [From Celexa] Allergy Unknown Agitation Verified 03/22/25 11:57 divalproex sodium Allergy Unknown Agitation Verified 03/22/25 11:57 [From Depakote] paroxetine [From Paxil] Allergy Unknown Agitation Verified 03/22/25 11:57 sertraline [From Zoloft] Allergy Unknown Agitation Verified 03/22/25 11:57 metoclopramide [From Reglan] Allergy Rash/Hives Verified 03/22/25 11:57 prochlorperazine Allergy Anaphylaxis Verified 03/22/25 11:57 [From Compazine] phenobarbital AdvReac Severe Rapid Verified 03/22/25 11:57 Heart Rate zolpidem tartrate AdvReac Unknown Altered Verified 03/22/25 11:57 [From Ambien] Mental Status atropine [From Lomotil] AdvReac Rapid Verified 03/22/25 11:57 Heart Rate dicyclomine [From Bentyl] AdvReac Rapid Verified 03/22/25 11:57 Heart Rate diphenhydramine AdvReac Hallucinati Verified 03/22/25 11:57 [From Benadryl] ons diphenoxylate [From Lomotil] AdvReac Rapid Verified 03/22/25 11:57 Heart Rate estropipate [From Ogen 2.5] AdvReac Twitching Verified 03/22/25 11:57 of Legs haloperidol [From Haldol] AdvReac Agitation Verified 03/22/25 11:57 ketorolac [From Toradol] AdvReac Unknown Verified 03/22/25 11:57 lorazepam [From Ativan] AdvReac Hallucinati Verified 03/22/25 11:57 ons methylprednisolone AdvReac Altered Verified 03/22/25 11:57 [From Solu-Medrol] Mental Status ondansetron [From Zofran] AdvReac Unknown Verified 03/22/25 11:57 Review of Systems ROS Statement: Those systems with pertinent positive or pertinent negative responses have been documented in the HPI. ROS Other: All systems not noted in ROS Statement are negative. Past Medical History Past Medical History: GERD/Reflux, GI Bleed Additional Past Medical History / Comment(s): tremors, CROHN'S, KIDNEY STONES, IBS History of Any Multi-Drug Resistant Organisms: None Reported Past Surgical History: Tonsillectomy Additional Past Surgical History / Comment(s): wisdom teeth removed. Past Anesthesia/Blood Transfusion Reactions: No Reported Reaction Additional Past Anesthesia/Blood Transfusion Reaction / Comment(s): NEVER HAD BLOOD TRANSFUSION Past Psychological History: ADD/ADHD, Anxiety, Bipolar, Depression, PTSD Smoking Status: Smoker, current status unknown, Vaper Past Alcohol Use History: None Reported Past Drug Use History: Marijuana - Past Family History Sister(s) Additional Family Medical History / Comment(s): He has one sister that is healthy. He also has a 4-year-old daughter that is healthy. Father Family Medical History: GERD/Reflux Additional Family Medical History / Comment(s): DAD HAS ALSO NEVER BEEN AN ALCOHOLIC-RARELY, RARELY DRINKS. Mother Family Medical History: Cancer Additional Family Medical History / Comment(s): MOM STATES SHE HAS NEVER BEEN AN ALCOHOLIC-MOM RARELY ,RARELY DRINKS. HX THYROID CANCER General Exam - General Exam Comments Initial Comments: PHYSICAL EXAM: General Impression: Alert and oriented x3, tremulous HEENT: Normocephalic atraumatic, extra-ocular movements intact, pupils equal and reactive to light bilaterally, mucous membranes moist. Cardiovascular: Heart regular rate and rhythm Chest: Able to complete full sentences, no retractions, no tachypnea Abdomen: abdomen soft, non-tender, non-distended, no organomegaly Musculoskeletal: Pulses present and equal in all extremities, no peripheral edema Motor: no focal deficits noted Neurological: CN II-XII grossly intact, no focal motor or sensory deficits noted Skin: Intact with no visualized rashes Psych: Normal affect and mood Limitations: no limitations Course Vital Signs 04/03/25 04/03/25 09:49 12:05 Temperature 98 F Pulse Rate 91 63 Respiratory 20 16 Rate Blood Pressure 120/68 109/92 O2 Sat by Pulse 98 Oximetry Medical Decision Making - Medical Decision Making Was pt. sent in by a medical professional or institution (, PA, ACID PLANT HELPER, urgent care, hospital, or [place] health care facility...) When possible be specific @ -No Did you speak to anyone other than the patient for history (EMS, parent, family, police, friend...)? What history was obtained from this source @ -No Did you review nursing and triage notes (agree or disagree)? Why? @ -I reviewed and agree with nursing and triage notes Were old charts reviewed (outside hosp., previous admission, EMS record, old EKG, old radiological studies, urgent care reports/EKG's, [place] health care facility records)? Report findings @ -No old charts were reviewed Differential Diagnosis (chest pain, altered mental status, abdominal pain women, abdominal pain men, vaginal bleeding, musculoskeletal, weakness, fever, dyspnea, syncope, headache, dizziness, GI bleed, back pain, seizure, CVA, palpatations, mental health)? @ -Differential Weakness: Hypoglycemia, shock, sepsis, hyponatremia, anemia, infection, AK, ETOH, adverse medicine reaction, overdose, stroke, this is not meant to be an all-inclusive list. EKG interpreted by me (3pts min.). @ -None done X-rays interpreted by me (1pt min.). @ -None done CT interpreted by me (1pt min.). @ -None done U/S interpreted by me (1pt. min.). @ -None done What testing was considered but not performed or refused? (CT, X-rays, U/S, labs)? Why? @ -None What meds were considered but not given or refused? Why? @ -None Was smoking cessation discussed for >3mins.? @ -No Were there social determinants of health that impacted care today? How? (Homelessness, low income, unemployed, alcoholism, drug addiction, transportation, low edu. Level, literacy, decrease access to med. care, skilled nursing, rehab)? @ -No Was there de-escalation of care discussed even if they declined (Discuss DNR or withdrawal of care, Hospice)? DNR status @ -No What co-morbidities impacted this encounter? (DM, HTN, Smoking, COPD, CAD, Cancer, CVA, ARF, Chemo, Hep., AIDS, mental health diagnosis, sleep apnea, morbid obesity)? @ -None Was patient admitted / discharged? Hospital course, mention meds given and route, prescriptions, significant lab abnormalities, going to OR and other pertinent info. @ -34-year-old male presents with mother for concerns of benzodiazepine withdrawal. Vital signs stable. Patient physically at baseline. I have seen and evaluated this patient in multiple occasions. Laboratory evaluation is unremarkable. Mother requests intake at [facility]. I did speak receive a fax document that was completed in sent back to [facility] so that patient may be admitted there for further treatment Did you discuss the management of the patient with other professionals (professionals i.e. , PA, ACID PLANT HELPER, lab, RT, psych nurse, chute worker, marine electrician helper, teacher, radiation safety officer, rehabilitation caseworker)? Give summary @ -See above Was critical care preformed (if so, how long)? @ -No Undiagnosed new problem with uncertain prognosis? @ -No Drug Therapy requiring intensive monitoring for toxicity (Heparin, Nitro, Insulin, Cardizem)? @ -No Were any procedures done? @ -No Diagnosis/symptom? Acute, or Chronic, or Acute on Chronic? Uncomplicated (without systemic symptoms) or Complicated (systemic symptoms)? @ -Benzodiazepine dependence Side effects of treatment? @ -No Exacerbation, Progression, or Severe Exacerbation? @ -No Poses a threat to life or bodily function? How? (Chest pain, USA, AK, pneumonia, PE, COPD, DKA, ARF, appy, cholecystitis, CVA, Diverticulitis, Homicidal, Suicidal, threat to staff... and all critical care pts) @ -yes - Lab Data Result diagrams: 04/03/25 10:32 04/03/25 10:32 Lab Results 04/03/25 04/03/25 Range/Units 10:32 10:32 WBC 6.04 (4.50-10.00) 10*3/uL RBC 4.99 (4.40-5.60) 10*6/uL Hgb 15.6 (13.0-17.0) g/dL Hct 45.4 (39.6-50.0) % MCV 91.0 (80.0-97.0) fL MCH 31.3 (27.0-32.0) pg MCHC 34.4 (32.0-37.0) g/dL Plt Count 205 (140-440) 10*3/uL MPV 9.6 (9.5-12.2) fL Immature Gran % (Auto) 0.5 % Neutrophils % 63.3 % Lymphocytes % 30.0 % Monocytes % 5.1 % Eosinophils % 0.8 % Basophils % 0.3 % Immature Gran # 0.03 (0.00-0.04) 10*3/uL Neutrophils # 3.82 (1.80-7.70) 10*3/uL Lymphocytes # 1.81 (0.90-5.00) 10*3/uL Monocytes # 0.31 (0.20-1.00) 10*3/uL Eosinophils # 0.05 (0.04-0.35) 10*3/uL Basophils # 0.02 (0.00-0.10) 10*3/uL Sodium 141 (137-145) mmol/L Potassium 4.0 (3.5-5.1) mmol/L Chloride 104 (98-107) mmol/L Carbon Dioxide 26 (22-30) mmol/L Anion Gap 11 mmol/L BUN 14 (9-20) mg/dL Creatinine 0.76 (0.66-1.25) mg/dL Est GFR (CKD-EPI)AfAm >90 (>60 ml/min/1.73 sqM) Est GFR (CKD-EPI)NonAf >90 (>60 ml/min/1.73 sqM) Glucose 91 (74-99) mg/dL Calcium 10.1 (8.4-10.2) mg/dL Disposition Clinical Impression: Benzodiazepine dependence Disposition: OTHER INSTITUTION NOT DEFINED Condition: Fair Referrals: Sumeet Mejias III, MD [Primary Care Provider] - 1-2 days Time of Disposition: 12:37 - Out of Hospital Transfer - Req. Specs Out of Hospital Transfer - Requested Specifics: Other Non-Acute ([facility])
[2025-04-03 10:54] LABS: Basophils # (A) 0.02 10*3/uL (0.00-0.10); Basophils % (A) 0.3 %; Eosinophils # (A) 0.05 10*3/uL (0.04-0.35); Eosinophils % (A) 0.8 %; HCT 45.4 % (39.6-50.0); HGB 15.6 g/dL (13.0-17.0); Lymphocytes # (A) 1.81 10*3/uL (0.90-5.00); Lymphocytes % (A) 30.0 %; MCH 31.3 pg (27.0-32.0); MCHC 34.4 g/dL (32.0-37.0); MCV 91.0 fL (80.0-97.0); Monocytes # (A) 0.31 10*3/uL (0.20-1.00); Monocytes % (A) 5.1 %; Neutrophils # (A) 3.82 10*3/uL (1.80-7.70); Neutrophils % (A) 63.3 %; Platelet Count 205 10*3/uL (140-440); RBC 4.99 10*6/uL (4.40-5.60); RDW 13.8 % (11.5-14.5); WBC 6.04 10*3/uL (4.50-10.00)
[2025-04-03 11:05] LABS: African American GFR (CKD) >90 (>60 ml/min/1.73 sqM); Anion Gap 11 mmol/L; Blood Urea Nitrogen 14 mg/dL (9-20); Calcium 10.1 mg/dL (8.4-10.2); Carbon Dioxide 26 mmol/L (22-30); Chloride 104 mmol/L (98-107); Glucose 91 mg/dL (74-99); Non-African American GFR(CKD) >90 (>60 ml/min/1.73 sqM); Potassium 4.0 mmol/L (3.5-5.1); Sodium 141 mmol/L (137-145)
[2025-04-03 12:53] VITALS: BP 117/66; PULSE 65; RESP 18
== END 2025-04-03 13:33 | disposition other institution (70) ==
LOC: EC 09:38
DX: F13.20 Sedative, hypnotic or anxiolytic dependence, uncomplicated (principal); F17.290 Nicotine dependence, other tobacco product, uncomplicated; F12.90 Cannabis use, unspecified, uncomplicated; Z88.6 Allergy status to analgesic agent; Z88.8 Allergy status to other drugs, medicaments and biological substances
CPT/HCPCS: 36415; 80048; 85025; 99285